=== PATIENT | male | born 1950 | race Caucasian/White ===

== ENCOUNTER → 2016-07-21 | Outpatient (CLI) | payer MEDICARE, OTHER ==
[2016-07-21 12:00] LABS: Anion Gap 9 mmol/L; Blood Urea Nitrogen 23 mg/dL (9-20); CH 30.3; Carbon Dioxide 28 mmol/L (22-30); Chloride 106 mmol/L (98-107); HCT 41.3 % (39.0-53.0); HDW 2.58; HGB 12.5 gm/dL (13.0-17.5); Hypochromasia Slight; MCH 29.9 pg (25.0-35.0); MCHC 30.4 g/dL (31.0-37.0); MCV 98.3 fL (80.0-100.0); Macrocytosis Slight; Mean Platelet Volume 6.8; Non-African American GFR(MDRD) >60 (>60 ml/min/1.73 sqM); RDW 15.6 % (11.5-15.5); Sodium 143 mmol/L (137-145); WBC 7.2 k/uL (3.8-10.6)
== END | disposition home or self-care (01) ==
LOC: LABPAT 11:25
PROVIDERS: ATTEND Internal Medicine Cardiovascular Disease
DX: Z01.812 Encounter for preprocedural laboratory examination (principal); I25.10 Atherosclerotic heart disease of native coronary artery without angina pectoris
CPT/HCPCS: 80051; 82565; 84520; 85027

== ENCOUNTER 2016-07-26 06:40 | Day surgery (SDC) | payer MEDICARE, OTHER ==
[2016-07-21 15:31] VITALS: BMI 45.6
[~2016-07-26 06:40] MED LIST: ALPRAZolam 0.25 MG TAB PO PRN; ALPRAZolam 0.5 MG TAB PO PRN; ASPIRIN 325 MG TAB PO STA; ATORVASTATIN 80 MG TAB PO STA; NITROGLYCERIN SL TABS 0.4 MG TAB SUBLINGUAL PRN; SODIUM CHLORIDE 0.9% 1,000 ML in EMPTY BAG 1 BAG IV ONE
[2016-07-26 07:21] LABS: Glucose,Whole Blood 86 mg/dL (75-99)
[2016-07-26] MEDS ORDERED: MIDAZOLAM 2 MG/2 ML VIAL ONE (07:26)
[2016-07-26] MEDS ORDERED: diphenhydrAMINE 50 MG/ML 1 ML VIAL ONE (07:26)
[2016-07-26] MEDS ORDERED: LIDOCAINE 2% INJ 20 MG/ML (20 ML MDV) ONE ×2 (07:26→07:39)
[2016-07-26] MEDS ORDERED: LIDOCAINE 2% INJ 20 MG/ML SQ ONE ×2 (07:34→07:41)
[2016-07-26 07:36] LABS: INR 1.3 (<1.1); Prothrombin Time 12.9 sec (9.0-12.0)
[2016-07-26] MEDS ORDERED: fentaNYL (PF) 50 MCG/ML 2 ML AMP ONE (07:36)
[2016-07-26] MEDS ORDERED: fentaNYL (PF) 50 MCG/ML 2 ML AMP IV ONE (07:40)
[2016-07-26] MEDS ORDERED: MIDAZOLAM 2 MG/2 ML VIAL IV ONE (07:40)
[2016-07-26] MEDS ORDERED: IOHEXOL 350 MG/ML 100 ML BOTTLE INJ ONE (08:00)
[2016-07-26] MEDS ORDERED: RX INFO: IV CONTRAST WAS GIVEN 1 EACH MISC MISCELLANE PRN (08:08)
[2016-07-26] MEDS ORDERED: SODIUM CHLORIDE 0.9% 1,000 ML IV SCH (08:15)
--- NOTE | 2016-07-26 08:43 | CC ---
DATE OF SERVICE: 07/25/2016 INDICATION: Aortic stenosis/regurgitation to rule out underlying coronary artery disease. PROCEDURE NOTE: After obtaining informed consent, left heart catheterization, coronary angiogram and aortogram are performed via the left femoral artery using standard Sebastien catheters. Patient tolerated the procedure well without any obvious immediate complications. FINDINGS: We initially attempted vascular access on the right side but we were unsuccessful. There is a small hematoma, which was stable at the end of the procedure. Femoral angiogram was obtained and Angio-Seal deployed on the left side. FINDINGS: HEMODYNAMICS: Left ventricular end-diastolic pressure is 130/70 mm. AORTOGRAM: Aortogram was performed in the left lateral position shows a mildly dilated ascending aorta with moderate aortic regurgitation. ANGIOGRAPHIC DATA: LEFT MAIN CORONARY ARTERY: Left main coronary artery is a large vessel and is free of stenosis. It divides into left anterior descending coronary artery and circumflex coronary artery. LEFT ANTERIOR DESCENDING CORONARY ARTERY: LAD and its branches, circumflex coronary artery and its branches are free of significant stenosis. RIGHT CORONARY ARTERY: Right coronary artery is a large dominant vessel and is free of significant stenosis. CONCLUSIONS: 1. No significant obstructive coronary artery disease. 2. Mixed aortic valve stenosis with moderate aortic regurgitation and stenosis. 3. Nonischemic cardiomyopathy. PLAN: Patient will undergo aortic valve replacement. He has chronic A. fib and was on Lovenox as a bridge and we will decide whether to send him home on Lovenox or Coumadin depending upon when his surgery is going to be done.
[2016-07-26] MEDS ORDERED: MD COMMUNICATION TO PHARMACY 1 EACH MISC PO ONE (09:16)
[2016-07-26 10:23] LABS: Basophils # (A) 0.1 k/uL (0-0.2); Basophils % (A) 1 %; CH 31.1; CHCM 31.3; Eosinophils # (A) 0.2 k/uL (0-0.7); Eosinophils % (A) 2 %; HCT 41.5 % (39.0-53.0); HDW 2.52; HGB 12.8 gm/dL (13.0-17.5); Hypochromasia Slight; Luc # (Auto) 0.11; Luc % (Auto) 2; Lymphocytes # (A) 1.1 k/uL (1.0-4.8); Lymphocytes % (A) 17 %; MCH 30.8 pg (25.0-35.0); MCHC 30.8 g/dL (31.0-37.0); MCV 100.2 fL (80.0-100.0); Macrocytosis Slight; Mean Platelet Volume 7.9; Monocytes # (A) 0.6 k/uL (0-1.0); Monocytes % (A) 8 %; Neutrophils # (A) 4.6 k/uL (1.3-7.7); Neutrophils % (A) 70 %; RBC 4.14 m/uL (4.30-5.90); RDW 15.4 % (11.5-15.5); WBC 6.5 k/uL (3.8-10.6)
[2016-07-26 10:31] LABS: INR 1.3 (<1.1); Partial Thromboplastin Time 29.1 sec (22.0-30.0); Prothrombin Time 13.1 sec (9.0-12.0)
[2016-07-26 10:48] LABS: ALT 41 U/L (21-72); AST 33 U/L (17-59); Alkaline Phosphatase 80 U/L (38-126); Anion Gap 11 mmol/L; Blood Urea Nitrogen 24 mg/dL (9-20); Calcium 8.8 mg/dL (8.4-10.2); Carbon Dioxide 29 mmol/L (22-30); Chloride 104 mmol/L (98-107); Cholesterol 100 mg/dL (<200); Glucose 136 mg/dL (74-99); HDL Cholesterol 46 mg/dL (40-60); Magnesium 1.9 mg/dL (1.6-2.3); Non-African American GFR(MDRD) >60 (>60 ml/min/1.73 sqM); Potassium 4.2 mmol/L (3.5-5.1); Sodium 144 mmol/L (137-145); Total Protein 7.1 g/dL (6.3-8.2); Triglycerides 62 mg/dL (<150)
[2016-07-26 10:57] VITALS: TEMP 98.2
[2016-07-26] MEDS ORDERED: ACETAMINOPHEN TAB 325 MG TAB PO PRN (11:10)
[2016-07-26 11:11] LABS: Hemoglobin A1C 5.6 % (4.2-6.1)
[2016-07-26] MEDS ORDERED: ACETAMINOPHEN TAB 325 MG TAB ONE (11:11)
[2016-07-26] MEDS ORDERED: ACETAMINOPHEN TAB 325 MG TAB PO ONE (11:12)
[2016-07-26 11:19] LABS: Hepatitis B Surface Ag Index 0.08
[2016-07-26 11:36] LABS: Hepatitis C Virus IgG Index 0.06
[2016-07-26 11:48] LABS: Hepatitis C Virus IgG Ab Negative (Negative)
[2016-07-26 12:33] LABS: Hepatitis B Core IgM Index 0.04
[2016-07-26 12:50] VITALS: RESP 16
--- NOTE | 2016-07-26 13:47 | US ---
EXAMINATION TYPE: US carotid duplex BILAT DATE OF EXAM: 07/26/2016 11:53 AM COMPARISON: US on PACS CLINICAL HISTORY: pre-op open heart; recent [place] EXAM MEASUREMENTS: RIGHT: Peak Systolic Velocity (PSV) cm/sec ----- Right CCA: 34.8 ----- Right ICA: 53.9 ----- Right ECA: 72.5 ICA/CCA ratio: 1.5 RIGHT: End Diastole cm/sec ----- Right CCA: 11.3 ----- Right ICA: 17.3 ----- Right ECA: 0.0 LEFT: Peak Systolic Velocity (PSV) cm/sec ----- Left CCA: 40.0 ----- Left ICA: 56.0 ----- Left ECA: 38.4 ICA/CCA ratio: 1.4 LEFT: End Diastole cm/sec ----- Left CCA: 7.9 ----- Left ICA: 13.5 ----- Left ECA: 0.0 VERTEBRALS (direction of flow): Right Vertebral: faint antegrade flow Left Vertebral: Antegrade and dominant vertebral artery TECHNOLOGIST IMPRESSION: Mild to moderate intimal wall changes at bilateral carotid bifurcation, but PSV is wnl. Grayscale, color Doppler, spectral Doppler imaging performed of the carotid arteries IMPRESSION: No hemodynamic significant stenosis of the proximal internal carotid arteries bilaterall y by Doppler criteria, and indirect measurement of carotid stenosis
[2016-07-26 14:20] LABS: Appearance,Urine Clear (Clear); Bilirubin,Urine Negative (Negative); Glucose,Urine (UA) Negative (Negative); Ketones,Urine Negative (Negative); Leukocyte Esterase,Urine Negative (Negative); Nitrite,Urine Negative (Negative); PH, Urine 6.5 (5.0-8.0); Particle Count 1511; Protein,Urine 1+ (Negative); RBC,Urine 2 /hpf (0-5); Squamous Epithelial Cell,Urine 4 /hpf (0-4); UA Billing (MACRO vs. MICRO) MICRO; WBC,Urine <1 /hpf (0-5)
[2016-07-26 14:24] LABS: Specific Gravity,Urine >1.050 (1.001-1.035)
--- NOTE | 2016-07-26 15:27 | XR ---
EXAMINATION TYPE: XR chest 2V DATE OF EXAM: 07/26/2016 3:06 PM COMPARISON: Prior chest x-ray 21 September 2015 HISTORY: Preop cardiac surgery TECHNIQUE: Frontal and lateral views of the chest are obtained. FINDINGS: The heart remains enlarged. Interstitium and central vascularity are prominent. No pneumot horax or pleural effusion. Prominent lung volumes suggests underlying COPD. IMPRESSION: There may be a component of pulmonary venous hypertension and interstitial edema. Findin gs may be chronic and compensated.
[2016-07-26 15:36] VITALS: BP 113/60; PULSE 55
--- NOTE | 2016-07-27 08:57 | P.PN ---
Progress Note - Text 5 meter walk test: #1 4.68, #2 5.03, #3 5.24
--- NOTE | 2016-08-03 12:11 | P.VSCSTY ---
Greater Saphenous Vein Mapping This is bilateral lower extremity greater saphenous vein mapping. Date of service 07/26/2016 Vein quality and ultrasound appearance : branching and tortuosity as well in both lower legs with some varicosities. Vein size groin right [ ] groin left [ ] High thigh right 6.2 x 5.1 high thigh left 5.3 x 5.5 Mid thigh right 4.0 x 3.8 mid thigh left 5.0 x 4.4 Above-knee right 3.4 x 2.7 above- knee left 4.0 x 3.3 Below knee right 3.9 x 3.6 below-knee left 5.1 x 4.8 Mid calf right 2.8 x 2.4 mid calf left to 0.9 x 1.9 Ankle right 3.4 x 2.7 ankle left 3.4 x 2.9 Impression usual bilateral greater saphenous veins. Possible issues with branching and varicosities in both lower legs..
== END 2016-07-26 15:36 | disposition home or self-care (01) ==
LOC: CATHCVL 06:40
PROVIDERS: ATTEND Internal Medicine Cardiovascular Disease
DX: I35.2 Nonrheumatic aortic (valve) stenosis with insufficiency (principal); I48.2 Chronic atrial fibrillation; I50.22 Chronic systolic (congestive) heart failure; I42.9 Cardiomyopathy, unspecified; E11.9 Type 2 diabetes mellitus without complications; I10 Essential (primary) hypertension; Z79.01 Long term (current) use of anticoagulants; Z79.899 Other long term (current) drug therapy; Z79.84 Long term (current) use of oral hypoglycemic drugs; Z87.891 Personal history of nicotine dependence; Z82.49 Family history of ischemic heart disease and other diseases of the circulatory system
CPT/HCPCS: 94150; 93458; 80061; 80053; 80074; 84443; 83036; 83735; 84484; 85025; 85610; 85730; 81001; 87070; 87086; 71020; 93970; 93880; C1760; C1894; C1769; J2001; J2250; Q9967; J3010; 83880; 86850; 86900; 86901; 86920

== ENCOUNTER → 2016-07-28 | Outpatient (CLI) | payer MEDICARE, OTHER ==
--- NOTE | 2016-07-29 10:43 | ECHOF ---
Referral Reason:Z01.818 Q22.3 MEASUREMENTS -------- HEIGHT: 172.7 cm WEIGHT: 136.1 kg BP: 123/62 RVIDd: 4.2 cm (< 3.3) IVSd: 1.5 cm (0.6 - 1.1) LVIDd: 5.6 cm (3.9 - 5.3) LVPWd: 1.4 cm (0.6 - 1.1) IVSs: 1.6 cm LVIDs: 4.4 cm LVPWs: 1.9 cm LA Diam: 4.1 cm (2.7 - 3.8) LAESV Index (A-L): 45.66 ml/m Ao Diam: 3.8 cm (2.0 - 3.7) AV Cusp: 2.0 cm (1.5 - 2.6) MV EXCURSION: 10.542 mm (> 18.000) MV EF SLOPE: 34 mm/s (70 - 150) EPSS: 1.8 cm AV maxP.89 mmHg AV meanP.10 mmHg AR PHT: 989 ms RAP: 5.00 mmHg RVSP: 32.48 mmHg FINDINGS -------- Atrial fibrillation. This was a technically difficult study with suboptimal views. The left ventricular size is normal. There is moderate concentric left ventricular hypertrophy. Overall left ventricular systolic function is mild-moderately impaired with, an EF between 40 - 45 %. The right ventricle is severely enlarged. LA is severely dilated >40 ml/m2 The right atrium is mildly enlarged. 1.5mg of Definity was utilized for enhancement of images Aortic valve is trileaflet and is moderately thickened. There is moderate aortic regurgitation. There is goicuqvf-vm-ynwhfw aortic stenosis present. The mitral valve leaflets are mildly thickened. Mild mitral annular calcification present. Mild mitral regurgitation is present. Mild tricuspid regurgitation present. Right ventricular systolic pressure is normal at < 35 mmHg. Moderate pulmonic regurgitation. The aortic root is dilated measuring 3.8cm. IVC Not well visulized. There is no pericardial effusion. CONCLUSIONS -------- 1. Atrial fibrillation. 2. Aortic valve is trileaflet and is moderately thickened. 3. There is moderate aortic regurgitation. 4. There is zdudcjle-[id number] aortic stenosis present. 5. The mitral valve leaflets are mildly thickened. 6. Mild mitral annular calcification present. 7. Mild mitral regurgitation is present. 8. Mild tricuspid regurgitation present. 9. Right ventricular systolic pressure is normal at < 35 mmHg. 10. Moderate pulmonic regurgitation. 11. The aortic root is dilated measuring 3.8cm. 12. This was a technically difficult study with suboptimal views. 13. IVC Not well visulized. 14. There is no pericardial effusion. 15. The left ventricular size is normal. 16. There is moderate concentric left ventricular hypertrophy. 17. Overall left ventricular systolic function is mild-moderately impaired with, an EF between 40 - 45 %. 18. The right ventricle is severely enlarged. 19. LA is severely dilated >40 ml/m2 20. The right atrium is mildly enlarged. 21. 1.5mg of Definity was utilized for enhancement of images DYE REEL OPERATOR: Bernie Rincon RDCS
== END | disposition home or self-care (01) ==
LOC: RADECHMAIN 13:48
PROVIDERS: ATTEND Surgery
DX: Z01.818 Encounter for other preprocedural examination (principal); I48.91 Unspecified atrial fibrillation; I35.1 Nonrheumatic aortic (valve) insufficiency; I35.0 Nonrheumatic aortic (valve) stenosis; I34.0 Nonrheumatic mitral (valve) insufficiency; I07.1 Rheumatic tricuspid insufficiency; Q22.3 Other congenital malformations of pulmonary valve
CPT/HCPCS: C8929; Q9957; 93306

== ENCOUNTER 2016-08-01 05:43 | Inpatient (IN) | payer MEDICARE, OTHER ==
[2016-07-29 11:58] VITALS: BMI 45.6
[~2016-08-01 05:43] MED LIST changes: +ALBUMIN HUMAN 25% 50 ML IV ONE; +ALBUMIN HUMAN 5% 500 ML IVPB ONE; -ALPRAZolam 0.25 MG TAB PO PRN; -ALPRAZolam 0.5 MG TAB PO PRN; +AMINOCAPROIC ACID 250 MG/ML 20 ML VIAL IV ONE; +AMINOCAPROIC ACID 5,000 MG in DEXTROSE 5% IN WATER 50 ML IV ONE; +ASPIRIN 325 MG TAB PO ONE; -ASPIRIN 325 MG TAB PO STA; +ATORVASTATIN 10 MG TAB PO ONE; -ATORVASTATIN 80 MG TAB PO STA; +CALCIUM CHLORIDE 100 MG/ML 10 ML SYRINGE IV ONE; +CHLORHEXIDINE GLUCONATE 15 ML CUP MUCOUS MEM ONE; +DEXTROSE 5% IN WATER 1,000 ML with POTASSIUM CHLORIDE 110 MEQ, MAGNESIUM SULFATE 16 MEQ... IV ONE; +DEXTROSE 5% IN WATER 1,000 ML with POTASSIUM CHLORIDE 25 MEQ, SODIUM CHLORIDE 4MEQ/ML V... IV ONE; +DILTIAZEM 125 MG in SODIUM CHLORIDE 0.9% 100 ML IV ONE; +HEPARIN SODIUM 1,000 UNIT/ML VIAL IV ONE; +HEPARIN SODIUM,PORCINE 5,000 UNIT in SODIUM CHLORIDE 0.9% 500 ML IV ONE; +INSULIN REGULAR 100 UNIT in SODIUM CHLORIDE 0.9% 100 ML IV ONE; +LACTATED RINGERS 1,000 ML IV ONE; +MAGNESIUM SULFATE MG 500 MG/ML VIAL IV ONE; +MANNITOL 25% 12.5 GM/50 ML VIAL IV ONE; +METOPROLOL TARTRATE 12.5 MG TAB PO ONE; +MUPIROCIN 2% OINT 22 GM TUBE NASAL ONE; -NITROGLYCERIN SL TABS 0.4 MG TAB SUBLINGUAL PRN; +NITROGLYCERIN-D5W PMX 25 MG/250 ML BTL IV ONE; +NITROGLYCERIN-D5W PMX 50 MG in DEXTROSE/WATER 1 250ML.BAG IV ONE; +PHENYLEPHRINE 40 MG in SODIUM CHLORIDE 0.9% 250 ML IV ONE; +PHENYLEPHRINE-0.9% NACL SYG 1 MG/10 ML SYRINGE IV ONE; +PROPOFOL 50 ML IV ONE; +PROTAMINE SULFATE 10 MG/ML 25 ML VIAL IV ONE; +PROTAMINE SULFATE 250 MG in EMPTY BAG 1 BAG IV ONE; +SODIUM BICARB 8.4% 50 ML SYR (1 MEQ/ML) IV ONE; +SODIUM CHLORIDE 0.9% 1,000 ML IV ONE; -SODIUM CHLORIDE 0.9% 1,000 ML in EMPTY BAG 1 BAG IV ONE; +VANCOMYCIN 2,000 MG in SODIUM CHLORIDE 0.9% 500 ML IVPB ONE; +ceFAZolin 2,000 MG in SODIUM CHLORIDE 0.9% 30 ML IVPB ONE; +ceFAZolin 3 GM in SODIUM CHLORIDE 0.9% 30 ML IVPB ONE
[2016-08-01 06:25] LABS: Glucose,Whole Blood 100 mg/dL (75-99)
[2016-08-01] MEDS ORDERED: ELECTROLYTE-R (PH 7.4) 1,000 ML IV.SOLN IV ONE (08:05)
[2016-08-01] MEDS ORDERED: GLYCOPYRROLATE 0.2 MG/ML 2 ML VIAL ONE (08:05)
[2016-08-01] MEDS ORDERED: HEPARIN SODIUM,PORCINE 10,000 UNIT/ML 1 ML VIAL ONE (08:05)
[2016-08-01] MEDS ORDERED: PROTAMINE SULFATE 10 MG/ML 25 ML VIAL IV ONE (08:05)
[2016-08-01] MEDS ORDERED: SUCCINYLCHOLINE CHLORIDE VIAL 200 MG/10 ML VIAL IV ONE (08:05)
[2016-08-01] MEDS ORDERED: fentaNYL (PF) 50 MCG/ML 2 ML AMP ONE (08:05)
[2016-08-01] MEDS ORDERED: MIDAZOLAM 2 MG/2 ML VIAL ONE (08:05)
[2016-08-01] MEDS ORDERED: ePHEDrine 50 MG/ML 1 ML AMP ONE (08:05)
[2016-08-01] MEDS ORDERED: VECURONIUM 10 MG VIAL IV ONE (08:05)
[2016-08-01] MEDS ORDERED: PROPOFOL 10 MG/ML 20 ML VIAL IV ONE (08:05)
[2016-08-01] MEDS ORDERED: SODIUM CHLORIDE 0.9% IRRIG 1,000 ML BTL IRRIGATION ONE (08:05)
[2016-08-01 08:50] LABS: Glucose,Whole Blood 103 mg/dL (75-99)
[2016-08-01] MEDS: ceFAZolin 1,000 MG in SODIUM CHLORIDE 0.9% IRRIGATIO 1,000 ML IRRIGATION ONE ×2 (09:17→13:00)
[2016-08-01 10:02] LABS: Glucose,Whole Blood 109 mg/dL (75-99)
[2016-08-01 10:30] LABS: Glucose,Whole Blood 158 mg/dL (75-99)
[2016-08-01 11:08] LABS: Glucose,Whole Blood 194 mg/dL (75-99)
[2016-08-01 11:34] LABS: Glucose,Whole Blood 190 mg/dL (75-99)
[2016-08-01 12:04] LABS: Glucose,Whole Blood 162 mg/dL (75-99)
[2016-08-01] MEDS: CLEVIDIPINE BUTYRATE 25 MG in EMPTY BAG 1 BAG IV ONE ×2 (13:08→20:00)
[2016-08-01] MEDS: NOREPINEPHRINE 4 MG in SODIUM CHLORIDE 0.9% 250 ML IV ONE ×2 (13:12→14:15)
[2016-08-01] MEDS: LACTATED RINGERS 1,000 ML IV SCH ×2 (13:13→15:06)
[2016-08-01] MEDS ORDERED: Magnesium Replacement Protocol 1 EACH MISC MISCELLANE PRN (13:15)
[2016-08-01] MEDS ORDERED: CALCIUM GLUCONATE 2,000 MG in SODIUM CHLORIDE 0.9% 100 ML IVPB ONE (13:15)
[2016-08-01] MEDS ORDERED: ONDANSETRON 4 MG/2 ML VIAL IVP PRN (13:15)
[2016-08-01] MEDS ORDERED: NOREPINEPHRINE 4 MG in SODIUM CHLORIDE 0.9% 250 ML IV SCH (13:15)
[2016-08-01] MEDS ORDERED: PROPOFOL 500 MG in EMPTY BAG 1 BAG IV SCH (13:15)
[2016-08-01] MEDS ORDERED: Potassium Replacement Protocol 1 EACH MISC MISCELLANE PRN (13:15)
[2016-08-01] MEDS ORDERED: BENZOCAINE/MENTHOL LOZENG 1 EACH LOZENGE MUCOUS MEM PRN (13:15)
[2016-08-01] MEDS ORDERED: Phosphorus Replacement Protoco 1 EACH MISC MISCELLANE PRN (13:15)
[2016-08-01] MEDS ORDERED: ALBUMIN HUMAN 5% 250 ML in EMPTY BAG 1 BAG IVPB PRN (13:15)
[2016-08-01] MEDS ORDERED: MILRINONE-D5W PMX 20 MG in DEXTROSE/WATER 1 100ML.BAG IV SCH (13:15)
[2016-08-01] MEDS ORDERED: METOCLOPRAMIDE 5 MG/ML 2 ML VIAL IVP PRN (13:15)
[2016-08-01] MEDS ORDERED: INSULIN REGULAR 100 UNIT in SODIUM CHLORIDE 0.9% 100 ML IV SCH (13:30)
[2016-08-01 14:19] LABS: ABG PCO2 45 mmHg (35-45); ABG PH 7.35 (7.35-7.45); ABG PO2 272 mmHg (83-108)
[2016-08-01 14:20] LABS: ABG Base Excess -0.5 mmol/L; ABG HCO3 24 mmol/L (21-25); ABG TCO2 26 mmol/L (19-24)
[2016-08-01 14:32] LABS: Glucose,Whole Blood 140 mg/dL (75-99)
[2016-08-01 14:32] LABS: Glucose,Whole Blood 124 mg/dL (75-99)
[2016-08-01 14:36] LABS: Ionized Calcium 4.8 mg/dL (4.5-5.3)
[2016-08-01 14:40] LABS: INR 1.4 (<1.1); Partial Thromboplastin Time 26.6 sec (22.0-30.0); Prothrombin Time 14.1 sec (9.0-12.0)
[2016-08-01 14:48] LABS: ALT 47 U/L (21-72); AST 36 U/L (17-59); Alkaline Phosphatase 52 U/L (38-126); Anion Gap 8 mmol/L; Blood Urea Nitrogen 21 mg/dL (9-20); Calcium 7.9 mg/dL (8.4-10.2); Carbon Dioxide 26 mmol/L (22-30); Chloride 109 mmol/L (98-107); Glucose 137 mg/dL (74-99); Magnesium 2.1 mg/dL (1.6-2.3); Non-African American GFR(MDRD) >60 (>60 ml/min/1.73 sqM); Sodium 143 mmol/L (137-145); Total Bilirubin 1.2 mg/dL (0.2-1.3); Total Protein 5.5 g/dL (6.3-8.2)
[2016-08-01 14:56] LABS: Basophils # (A) 0.1 k/uL (0-0.2); Basophils % (A) 0 %; CHCM 31.4; Eosinophils # (A) 0.1 k/uL (0-0.7); Eosinophils % (A) 1 %; HCT 30.6 % (39.0-53.0); Hypochromasia Slight; Luc # (Auto) 0.09; Luc % (Auto) 1; Lymphocytes # (A) 0.7 k/uL (1.0-4.8); Lymphocytes % (A) 5 %; MCH 30.9 pg (25.0-35.0); MCV 99.5 fL (80.0-100.0); Macrocytosis Slight; Monocytes # (A) 0.9 k/uL (0-1.0); Monocytes % (A) 7 %; Neutrophils # (A) 11.4 k/uL (1.3-7.7); Neutrophils % (A) 86 %; RBC 3.07 m/uL (4.30-5.90); WBC 13.3 k/uL (3.8-10.6)
--- NOTE | 2016-08-01 14:59 | XR ---
EXAMINATION TYPE: XR chest 1V portable DATE OF EXAM: 08/01/2016 2:27 PM COMPARISON: 07/26/2016 HISTORY: Postop cardiac surgery TECHNIQUE: Single frontal view of the chest is obtained. FINDINGS: ET tube 2.5 cm above maría. NG tube appears in good position. Chest tube and mediastinal drain noted. No sizable pneumothorax. Garrett-Jonah catheter seen with the tip overlying the proximal pulmonary outflow tract. Mild central venous congestion not excluded. The heart is enlarged. IMPRESSION: 1. Postoperative changes. Correlate for mild central venous congestion.
[2016-08-01 15:06] LABS: Glucose,Whole Blood 138 mg/dL (75-99)
[2016-08-01] MEDS: CLEVIDIPINE BUTYRATE 25 MG in EMPTY BAG 1 BAG IV SCH ×2 (15:06→23:50)
[2016-08-01] MEDS: ceFAZolin 3 GM in SODIUM CHLORIDE 0.9% 100 ML IVPB SCH (15:06)
[2016-08-01] MEDS: IPRATROPIUM-ALBUTEROL 3 ML NEB INHALATION SCH ×2 (15:18→18:49)
[2016-08-01 15:21] LABS: HGB 9.5 gm/dL (13.0-17.5)
[2016-08-01 16:12] LABS: Glucose,Whole Blood 161 mg/dL (75-99)
[2016-08-01 16:58] LABS: Glucose,Whole Blood 151 mg/dL (75-99)
[2016-08-01 17:04] LABS: Basophils % (A) 0 %; CH 30.6; CHCM 31.5; Eosinophils % (A) 0 %; HCT 30.2 % (39.0-53.0); HGB 9.7 gm/dL (13.0-17.5); Hypochromasia Slight; Luc % (Auto) 1; Lymphocytes # (A) 0.4 k/uL (1.0-4.8); Lymphocytes % (A) 4 %; MCH 31.4 pg (25.0-35.0); MCHC 32.1 g/dL (31.0-37.0); MCV 97.8 fL (80.0-100.0); Macrocytosis Slight; Monocytes # (A) 0.7 k/uL (0-1.0); Monocytes % (A) 6 %; Neutrophils % (A) 89 %; RBC 3.09 m/uL (4.30-5.90); RDW 15.7 % (11.5-15.5); WBC 11.2 k/uL (3.8-10.6); WBC (Perox) 11.34
[2016-08-01 18:10] LABS: Glucose,Whole Blood 153 mg/dL (75-99)
[2016-08-01] MEDS: ACETAMINOPHEN IV (For NPO) 1,000 MG in EMPTY BAG 1 BAG IVPB SCH ×2 (18:13→23:26)
[2016-08-01 19:13] LABS: Glucose,Whole Blood 143 mg/dL (75-99)
[2016-08-01 20:07] LABS: Glucose,Whole Blood 144 mg/dL (75-99)
[2016-08-01 20:08] LABS: ABG Base Excess -0.8 mmol/L; ABG HCO3 24 mmol/L (21-25); ABG PCO2 45 mmHg (35-45); ABG PH 7.35 (7.35-7.45); ABG PO2 71 mmHg (83-108); ABG TCO2 25 mmol/L (19-24)
--- NOTE | 2016-08-01 20:13 | P.CNPUL ---
History of Present Illness Consult date: 08/01/16 Requesting physician: Frank Ram Reason for consult: other (Status post CABG) Chief complaint: status post CABG History of present illness: this is a 65-year-old white male with history of severe aortic valve disease, patient had aortic regurgitation and aortic stenosis, and he was being followed by Dr. Sanders for number of years for his aortic valve disease. On his most recent transesophageal echocardiogram, patient was noted to have worsening stenosis worsening regurgitation. Hence he was referred to cardiothoracic surgery for aortic valve replacement. Patient has been experiencing worsening dyspnea on exertion which was felt to be related mostly to his underlying aortic valve disease. Today the patient underwent aortic valve replacement, postoperatively he was on mechanical ventilation, admitted to the ICU, and I saw him on consultation. His ventilator settings were reviewed. Chest x-ray was also reviewed. Vent settings were adjusted, and we plan to follow the protocol for bleeding possibly extubation in the next few hours. Patient seems to be hemodynamically stable. Abdomen chest x-ray showed mild congestive changes. Review of Systems ROS unobtainable: due to endotracheal tube Past Medical History Past Medical History: COPD, Diabetes Mellitus, Hypertension, Osteoarthritis (OA) , Sleep Apnea/CPAP/BIPAP Additional Past Medical History / Comment(s): irregular heartbeat, varicose veins, 2 herniated disk/degenerative disks, leaky heart valve, "blood clots in the heart", uses CPAP History of Any Multi-Drug Resistant Organisms: None Reported Past Surgical History: Appendectomy, Bowel Resection, Heart Catheterization, Orthopedic Surgery, Tonsillectomy Additional Past Surgical History / Comment(s): left shoulder surgery, surgery for sleep apnea, deana cataracts Past Anesthesia/Blood Transfusion Reactions: No Reported Reaction Past Psychological History: Depression Smoking Status: Former smoker Past Alcohol Use History: Occasional Additional Past Alcohol Use History / Comment(s): quit smoking 2014. smoked for 30 yrs, < 1 PPD Past Drug Use History: None Reported - Past Family History Mother Family Medical History: No Reported History Medications and Allergies Home Medications Medication Instructions Recorded Confirmed Type ALPRAZolam [Xanax] 0.25 mg PO BID PRN 10/15/14 08/01/16 History Doxazosin [Cardura] 1 mg PO QAM 10/15/14 08/01/16 History HYDROcodone/APAP 10-325MG [[place] 1 tab PO TID PRN 10/15/14 08/01/16 History 10] Lisinopril [Zestril] 2.5 mg PO QAM 10/15/14 08/01/16 History Warfarin [Coumadin] 10 mg PO SUMOTUTHFRSA 10/15/14 07/29/16 History metFORMIN HCL [Glucophage] 500 mg PO QAM 10/15/14 08/01/16 History Atenolol [Tenormin] 25 mg PO QAM 01/21/15 08/01/16 History Furosemide [Lasix] 40 mg PO BID 01/21/15 08/01/16 History buPROPion HCL [Wellbutrin SR] 150 mg PO QAM 01/21/15 08/01/16 History traMADol HCl [Ultram] 50 mg PO BID PRN 01/21/15 08/01/16 History Aspirin 325 mg PO DAILY 04/01/15 08/01/16 History Ergocalciferol (Vitamin D2) 50,000 unit PO SA 04/01/15 08/01/16 History [Drisdol] Albuterol Inhaler [Ventolin Hfa 2 puff INHALATION RT-Q4H PRN 07/13/15 08/01/16 History Inhaler] Baclofen 10 mg PO TID 07/13/15 08/01/16 History Potassium Chloride [Klor-Con 10] 10 meq PO QAM 07/13/15 08/01/16 History Docusate [Colace] 100 mg PO DAILY PRN 11/05/15 08/01/16 History Ipratropium-Albuterol Nebulize 3 ml INHALATION RT-QID PRN 11/05/15 08/01/16 History [Duoneb 0.5 mg-3 mg/3 ml Soln] Multivitamins, Thera [Multivitamin] 1 tab PO DAILY 11/05/15 08/01/16 History Warfarin Sodium 12 mg PO WE 11/05/15 07/29/16 History hydrALAZINE HCL [Apresoline] 25 mg PO TID 11/05/15 08/01/16 History Cyanocobalamin [Vitamin B-12] 1,000 mcg PO DAILY 07/21/16 08/01/16 History Vitamin E (Dl,Tocopheryl Acet) 400 unit PO DAILY 07/21/16 08/01/16 History [Vitamin E] Enoxaparin [Lovenox] 100 mg SQ Q12H 07/29/16 08/01/16 History FLUoxetine HCL [Sarafem] 60 mg PO DAILY 08/01/16 08/01/16 History Allergies Allergy/AdvReac Type Severity Reaction Status Date / Time No Known Allergies Allergy Verified 07/29/16 11:43 Physical Exam Vitals: Vital Signs Temp Pulse Pulse Resp BP BP BP 08/01/16 19:31 91 08/01/16 18:54 79 08/01/16 17:00 80 14 08/01/16 16:30 80 140/67 08/01/16 16:20 80 140/67 08/01/16 16:10 79 140/67 08/01/16 16:00 80 140/67 08/01/16 15:53 75 08/01/16 15:50 80 140/67 08/01/16 15:40 79 140/67 08/01/16 15:30 71 84/49 08/01/16 15:22 76 08/01/16 15:20 79 84/49 08/01/16 15:10 80 84/49 08/01/16 15:00 79 84/49 08/01/16 14:50 80 84/49 08/01/16 14:40 79 84/49 08/01/16 14:30 80 107/61 08/01/16 14:20 80 107/61 08/01/16 14:10 80 107/61 08/01/16 14:00 80 08/01/16 13:50 79 08/01/16 06:08 97.9 F 68 16 115/73 145/73 08/01/16 06:07 97.9 F 68 16 145/73 Pulse Ox 08/01/16 19:31 08/01/16 18:54 08/01/16 17:00 98 08/01/16 16:30 100 08/01/16 16:20 100 08/01/16 16:10 100 08/01/16 16:00 100 08/01/16 15:53 08/01/16 15:50 100 08/01/16 15:40 100 08/01/16 15:30 100 08/01/16 15:22 08/01/16 15:20 100 08/01/16 15:10 100 08/01/16 15:00 100 08/01/16 14:50 100 08/01/16 14:40 100 08/01/16 14:30 100 08/01/16 14:20 100 08/01/16 14:10 100 08/01/16 14:00 100 08/01/16 13:50 95 08/01/16 06:08 93 L 08/01/16 06:07 93 L Intake and Output 08/01/16 08/01/16 08/01/16 06:59 14:59 22:59 Intake Total 712 1023 Output Total 3895 730 Balance -3183 293 Intake: IV 161 372 CO/CI 120 300 Pressure Bags 9 72 Intake, IV Titration 551 651 Amount Albumin Human 5% 250 ml 500 In Empty Bag 1 bag @ 250 mls/hr IVPB Q1HR PRN Rx#: [id number] Calcium Gluconate 2,000 100 mg In Sodium Chloride 0.9 % 100 ml @ 100 mls/hr IVPB ONCE ONE Rx#: [id number] Lactated Ringers 1,000 ml 51 451 @ 50 mls/hr IV .Q20H [facility] Rx#:[id number] ceFAZolin 3 gm In Sodium 100 Chloride 0.9% 100 ml @ 100 mls/hr IVPB Q8HR [facility] Rx#:[id number] Output: Chest Tube Drainage 170 190 Chest Tube Left Pleural/ 50 30 Mediastinal Chest Tube Mediastinal 50 150 Chest Tube Right Lateral 70 10 Chest Urine 925 540 Estimated Blood Loss 2800 Other: Voiding Method Indwelling Catheter # Bowel Movements 0 Weight 136.985 kg ABP, PAP, CO, CI - Last 8 Hours Arterial Blood Pressure 102/52 Arterial Blood Pressure 139/71 Arterial Blood Pressure 148/73 Arterial Blood Pressure 129/68 Arterial Blood Pressure 153/75 Arterial Blood Pressure 129/68 Arterial Blood Pressure 136/71 Arterial Blood Pressure 120/61 Arterial Blood Pressure 113/60 Arterial Blood Pressure 110/57 Arterial Blood Pressure 106/56 Arterial Blood Pressure 106/57 Arterial Blood Pressure 131/68 Arterial Blood Pressure 93/52 Arterial Blood Pressure 127/60 Arterial Blood Pressure 124/70 Pulmonary Artery Pressure 38/22 Pulmonary Artery Pressure 40/24 Pulmonary Artery Pressure 43/26 Pulmonary Artery Pressure 40/24 Pulmonary Artery Pressure 46/26 Pulmonary Artery Pressure 39/23 Pulmonary Artery Pressure 42/24 Pulmonary Artery Pressure 38/22 Pulmonary Artery Pressure 41/23 Pulmonary Artery Pressure 44/25 Pulmonary Artery Pressure 42/24 Pulmonary Artery Pressure 42/24 Pulmonary Artery Pressure 48/26 Pulmonary Artery Pressure 37/22 Pulmonary Artery Pressure 45/22 Pulmonary Artery Pressure 37/21 Pulmonary Artery Pressure 48/29 Cardiac Output 8.6 Cardiac Output 9.8 Cardiac Output 10.2 Cardiac Output 10.2 Cardiac Output 10.2 Cardiac Output 10.2 Cardiac Output 10.2 Cardiac Output 8.6 Cardiac Output 8.6 Cardiac Output 8.6 Cardiac Output 8.6 Cardiac Output 8.6 Cardiac Output 10.2 Cardiac Output 10.2 Cardiac Output 7.1 Cardiac Output 9.2 Cardiac Output 9.2 Cardiac Index 3.5 Cardiac Index 4 Cardiac Index 4.2 Cardiac Index 3.5 Cardiac Index 4.2 Cardiac Index 2.9 Cardiac Index 3.8 HEENT: Short obese neck, no neck masses, endotracheal tube is intact. Chest: Minimal fine crackles at the bases, no rhonchi, no wheezes. Cardiac: Normal S1 and S2, no S3 gallop, 2/6 systolic murmur throughout the precordium. Positive pericardial rub. Abdomen: Obese, soft, nontender, no organomegaly, no rebound, no guarding. Extremities: No clubbing edema or cyanosis. Neurologic: Cannot be assessed, patient is on mechanical ventilation. Sedated, on propofol drip at present. Results - Laboratory Findings CBC and BMP: 08/01/16 16:40 08/01/16 13:55 ABG ABG pH 7.35 (7.35-7.45) 08/01/16 14:11 ABG pCO2 45 mmHg (35-45) 08/01/16 14:11 ABG pO2 272 mmHg (83-108) H 08/01/16 14:11 ABG O2 Saturation 100.0 % (94-97) H 08/01/16 14:11 PT/INR, D-dimer PT 14.1 sec (9.0-12.0) H 08/01/16 13:55 INR 1.4 (<1.1) 08/01/16 13:55 Abnormal lab findings: Abnormal Labs 07/26/16 08/01/16 08/01/16 10:05 06:23 08:48 WBC RBC Hgb Hct RDW Plt Count Neutrophils # Lymphocytes # PT ABG pO2 ABG Total CO2 ABG O2 Saturation Chloride BUN Glucose POC Glucose (mg/dL) 100 H 103 H Calcium Total Protein Albumin Crossmatch See Detail 08/01/16 08/01/16 08/01/16 09:48 10:28 10:54 WBC RBC Hgb Hct RDW Plt Count Neutrophils # Lymphocytes # PT ABG pO2 ABG Total CO2 ABG O2 Saturation Chloride BUN Glucose POC Glucose (mg/dL) 109 H 158 H 194 H Calcium Total Protein Albumin Crossmatch 08/01/16 08/01/16 08/01/16 11:32 12:01 13:55 WBC 13.3 H RBC 3.07 L Hgb 9.5 L D Hct 30.6 L RDW 16.0 H Plt Count 148 L Neutrophils # 11.4 H Lymphocytes # 0.7 L PT ABG pO2 ABG Total CO2 ABG O2 Saturation Chloride BUN Glucose POC Glucose (mg/dL) 190 H 162 H Calcium Total Protein Albumin Crossmatch 08/01/16 08/01/16 08/01/16 13:55 13:55 13:55 WBC RBC Hgb Hct RDW Plt Count Neutrophils # Lymphocytes # PT 14.1 H ABG pO2 ABG Total CO2 ABG O2 Saturation Chloride 109 H BUN 21 H Glucose 137 H POC Glucose (mg/dL) 140 H Calcium 7.9 L Total Protein 5.5 L Albumin 3.3 L Crossmatch 08/01/16 08/01/16 08/01/16 14:11 14:13 15:03 WBC RBC Hgb Hct RDW Plt Count Neutrophils # Lymphocytes # PT ABG pO2 272 H ABG Total CO2 26 H ABG O2 Saturation 100.0 H Chloride BUN Glucose POC Glucose (mg/dL) 124 H 138 H Calcium Total Protein Albumin Crossmatch 08/01/16 08/01/16 08/01/16 16:10 16:40 16:56 WBC 11.2 H RBC 3.09 L Hgb 9.7 L Hct 30.2 L RDW 15.7 H Plt Count 143 L Neutrophils # 10.0 H Lymphocytes # 0.4 L PT ABG pO2 ABG Total CO2 ABG O2 Saturation Chloride BUN Glucose POC Glucose (mg/dL) 161 H 151 H Calcium Total Protein Albumin Crossmatch 08/01/16 08/01/16 18:08 19:04 WBC RBC Hgb Hct RDW Plt Count Neutrophils # Lymphocytes # PT ABG pO2 ABG Total CO2 ABG O2 Saturation Chloride BUN Glucose POC Glucose (mg/dL) 153 H 143 H Calcium Total Protein Albumin Crossmatch - Diagnostic Findings Chest x-ray: image reviewed ( Chest x-ray showed evidence of mild congestive changes endotracheal tube seems to be in proper position.) Assessment and Plan Plan: Impression: 1 status post aortic valve replacement, postoperative day #0, patient is on mechanical ventilation as expected. 2 history of severe aortic stenosis and regurgitation based on previous breath since the [facility] echocardiograms. 3 chronic shortness of breath, multifactorial, however felt to be mostly related to severe aortic valve disease. 4 suspect some component of underlying COPD considering his smoking history, severity of which is not clear. 5 history of hypertension 6 history of hyperlipidemia 7 history of obesity. Recommendation: Continue present supportive care measures, ventilator settings were adjusted accordingly to the most recent ABG, patient will be kept on the protocol for weaning, and likely wean and extubate in the next few hours. will continue to follow. Time with Patient: Greater than 30
[2016-08-01 20:15] LABS: Ionized Calcium 5.1 mg/dL (4.5-5.3)
[2016-08-01 20:17] LABS: Basophils % (A) 0 %; CH 30.6; Eosinophils % (A) 0 %; HCT 31.8 % (39.0-53.0); HDW 2.56; HGB 9.9 gm/dL (13.0-17.5); Hypochromasia Slight; Luc # (Auto) 0.09; Luc % (Auto) 1; Lymphocytes # (A) 0.5 k/uL (1.0-4.8); Lymphocytes % (A) 4 %; MCH 30.8 pg (25.0-35.0); MCV 99.4 fL (80.0-100.0); Macrocytosis Slight; Mean Platelet Volume 8.3; Monocytes # (A) 0.7 k/uL (0-1.0); Monocytes % (A) 6 %; Neutrophils # (A) 10.2 k/uL (1.3-7.7); Neutrophils % (A) 89 %; RDW 15.7 % (11.5-15.5); WBC 11.5 k/uL (3.8-10.6); WBC (Perox) 11.71
[2016-08-01 20:23] LABS: Anion Gap 10 mmol/L; Blood Urea Nitrogen 21 mg/dL (9-20); Calcium 8.5 mg/dL (8.4-10.2); Carbon Dioxide 26 mmol/L (22-30); Chloride 108 mmol/L (98-107); Glucose 133 mg/dL (74-99); Non-African American GFR(MDRD) >60 (>60 ml/min/1.73 sqM); Phosphorous 3.3 mg/dL (2.5-4.5); Potassium 3.9 mmol/L (3.5-5.1); Sodium 144 mmol/L (137-145)
[2016-08-01] MEDS ORDERED: POTASSIUM CHLORIDE 20 MEQ in WATER FOR INJECTION 1 100ML.BAG IVPB ONE (20:45)
[2016-08-01] MEDS: MORPHINE SULFATE 2 MG/ML SYRINGE IVP PRN (20:46)
[2016-08-01 21:09] LABS: Glucose,Whole Blood 132 mg/dL (75-99)
[2016-08-01] MEDS ORDERED: HEPARIN SODIUM,PORCINE 5,000 UNIT/ML 1 ML VIAL SQ SCH (21:18)
[2016-08-01 22:25] LABS: Glucose,Whole Blood 123 mg/dL (75-99)
[2016-08-01] MEDS: MUPIROCIN 2% OINT 22 GM TUBE NASAL SCH (22:34)
[2016-08-01 23:25] LABS: Glucose,Whole Blood 134 mg/dL (75-99)
--- NOTE | 2016-08-01 23:50 | OP ---
DATE OF SERVICE: 08/01/2016 SURGEON: Frank Ram MD SEWING MACHINE MAINTENANCE MECHANIC: Perry MENDOZA SEWING MACHINE MAINTENANCE MECHANIC: Alberto SPENCER PREOPERATIVE DIAGNOSIS: Severe aortic valve disorder with mixed severe aortic valve stenosis and severe aortic valve regurgitation, bicuspid aortic valve, moderate left ventricular and right ventricular dysfunction, pulmonary hypertension, chronic atrial fibrillation, clot in the left atrial appendage, hypertension, morbid obesity, chronic obstructive pulmonary disease. POSTOPERATIVE DIAGNOSIS: Severe aortic valve disorder with mixed severe aortic valve stenosis and severe aortic valve regurgitation, bicuspid aortic valve, moderate left ventricular and right ventricular dysfunction, pulmonary hypertension, chronic atrial fibrillation, clot in the left atrial appendage, hypertension, morbid obesity, chronic obstructive pulmonary disease. OPERATION: 1. Aortic valve replacement using a 27 mm Magna Ease pericardial bioprosthesis. 2. Sternal plating using the tritium system ([employer]) 3. Intraoperative transesophageal echocardiogram and epiaortic scanning. ANESTHESIA: ESTIMATED BLOOD LOSS: SPECIMENS REMOVED: COMPLICATIONS: INDICATION FOR SURGERY: Patient is a 65-year-old patient of Dr. Galicia who has been followed for known aortic valve regurgitation and moderate stenosis, as he is known to have a bicuspid valve. Patient also has been in chronic atrial fibrillation at this point and had a known clot in his left atrial appendage which was still there on the last MARY despite chronic anticoagulation. Patient's cardiac catheterization did not show any significant coronary artery disease. Patient had a dobutamine stress echo that proved that the aortic stenosis was severe. Functionally the patient had noticed decreased functional status. He was turned down for a TAVR procedure in view of the bicuspid aortic valve. Plan is to proceed with aortic valve replacement today with no plan to perform Pope-Maze in view of his chronic persistent atrial fibrillation and biatrial dilatation and clot in his left atrial appendage. Risks of surgery were discussed with him. He understood them and agreed to proceed. DESCRIPTION OF THE PROCEDURE: Patient in supine position. A right internal jugular Lawtey-Jonah catheter was inserted and that showed PA pressure of 60/30 and cardiac index of 1.9. He was brought to the operating room, where general endotracheal anesthesia was induced uneventfully. Rendon catheter was inserted. The chest, abdomen and both lower extremities were prepped and draped using ChloraPrep. Ioban was used to cover the skin. Patient received 3 grams of cefazolin intravenously. Transesophageal echocardiogram confirmed the preoperative finding of severe aortic valve stenosis and regurgitation with moderate left ventricular dysfunction and mild to moderate right ventricular dysfunction with fairly persistent clot in the left atrial appendage and smoke in both atria. There was mild to moderate mitral valve regurgitation and mild to moderate tricuspid valve regurgitation. Midline sternotomy was performed. No bone wax was used. The sternum was relatively thin for this large gentleman. Mediastinal fat was transected between 2 ties and epiaortic scanning revealed normal ascending aorta. Pericardium was opened in an inverted T-fashion. Pericardial cradle was created. Findings included a soft aorta, normal size, and a large heart with adhesions between the left ventricle and the pericardium. We lysed most of those adhesions using a combination of cautery and blunt dissection. We stayed away from the left atrial appendage area. After systemic heparinization, after placement of respective pursestrings, aortic cannulation using a 21 [place] soft flow cannula, venous cannulation using a 32/40 dual-stage venous cannula via the right atrial appendage was performed. Antegrade as well as retrograde cardioplegia catheters were also inserted via respective pledgeted Prolene sutures, pursestrings. Cardiopulmonary bypass was initiated with no issues. During 65 minutes of aortic clamping, myocardial protection was achieved with an initial dose of around 800 mL of antegrade cold blood cardioplegia with adequate arrest at around 500 mL despite the aortic valve regurgitation, followed by 500 mL of retrograde cold blood cardioplegia. All subsequent doses were given retrograde at 15-minute intervals. The last dose was warm blood given via the retrograde route as we were closing the aorta. Patient's temperature was allowed to drift down to around 34 degrees Celsius. The aorta was opened in a transverse fashion around 2 cm above the sinotubular junction. It was pliable. Exploration of the valve confirmed the suspected bicuspid aortic valve, which was quite stenotic. We excised the valve. It was heavily calcified. We debrided the annulus of all calcific deposits to a totally pliable annulus. The left main was in normal position and the right coronary ostia was closer to the R/NC commissure and slightly high. Thorough irrigation was performed. The annulus was sized to a 27 mm Magna Ease pericardial bioprosthesis, which was selected and prepared on the back table as we placed a total of 17 [place]ron 2-0 sutures pledgeted on the ventricular side. Those sutures were passed symmetrically into the valve, which was seated nicely. I intentionally rotated the valve relative to the commissure clockwise to have the post away from the right coronary ostia. The valve seated nicely. All the needles were cut and all the sutures tied using the cor-knot device. The valve was nicely seated in a supra-annular position with no obvious gaps. Both coronary ostia were clear. Re-warming started at this point as we closed the aortotomy using Prolene 4-0 pledgeted on each corner and in 2 layers, the first layer being in a horizontal mattress and the second layer in an [id number] technique. CO2 was flooding the field as the aorta was opened and it was stopped once the aorta was closed. Patient was given a load of Primacor and given magnesium and lidocaine with also usual deairing maneuvers carried before we unclamped the aorta. One ventricular pacing wire was driven via the right ventricular inferior aspect and 2 monopolar pacing wires were affixed on the right atrial appendage and free wall. Patient required one single defibrillation to regain spontaneous sinus rhythm (pre-op chronic AFIB). We were able to AAI pacing with good conduction. After the period of re-perfusion, we were able to wean off cardiopulmonary bypass with moderately dosed Primacor with excellent hemodynamics. The MARY showed no paravalvular leak and de-airing was guided with the MARY. There was no residual air in the ventricle. Test dose than full-dose protamine was given as we decannulated the patient. The retrograde site, the antegrade site, and the aortic cannulation site required additional reinforcement sutures. Two substernal chest tubes were placed. Pericardium was kept open. There was plenty of mediastinal fat to cover the aorta. I placed a right pleural chest tube 28 [place]ian as the right pleura was opened. The left pleural remained intact. After achieving adequate hemostasis and hemodynamics and after correct sponge, instrument and needle count, the sternum was closed using a combination of [place] cables, and a total of 3 cables were used, as well as Tritium plates with a V plate on the manubrium and 2 figure-of-X plates on the sternal body, affixed with 14 and 16 mm screws. Thorough irrigation with cefazolin followed. The rest of the closure proceeded in layers. Skin glue sealant was applied. Patient did not receive any blood bank product. He received 1250 of Cell Saver blood. He was transferred to the ICU in normal sinus rhythm, atrially paced at 80, with a mean arterial pressure of 77, PA pressure of 40/22 on moderate-dose Primacor with a MARY showing improved right and left ventricular function. VANESSAD
[2016-08-02] MEDS: HEPARIN SODIUM,PORCINE 5,000 UNIT/ML 1 ML VIAL SQ SCH ×3 (00:57→15:56)
[2016-08-02] MEDS: MORPHINE SULFATE 2 MG/ML SYRINGE IVP PRN (01:00)
[2016-08-02] MEDS: ceFAZolin 3 GM in SODIUM CHLORIDE 0.9% 100 ML IVPB SCH ×3 (01:00→15:55)
[2016-08-02 02:00] LABS: Glucose,Whole Blood 119 mg/dL (75-99)
[2016-08-02 04:05] LABS: Glucose,Whole Blood 129 mg/dL (75-99)
[2016-08-02] MEDS: ACETAMINOPHEN IV (For NPO) 1,000 MG in EMPTY BAG 1 BAG IVPB SCH ×3 (05:23→18:03)
[2016-08-02 05:58] LABS: Basophils % (A) 0 %; CH 30.7; CHCM 30.9; Eosinophils % (A) 0 %; HCT 32.6 % (39.0-53.0); HDW 2.59; HGB 10.2 gm/dL (13.0-17.5); Hypochromasia Slight; Luc # (Auto) 0.14; Luc % (Auto) 1; Lymphocytes # (A) 0.6 k/uL (1.0-4.8); Lymphocytes % (A) 5 %; MCH 31.5 pg (25.0-35.0); MCHC 31.4 g/dL (31.0-37.0); MCV 100.2 fL (80.0-100.0); Macrocytosis Slight; Mean Platelet Volume 8.6; Monocytes # (A) 0.9 k/uL (0-1.0); Monocytes % (A) 7 %; Neutrophils # (A) 11.2 k/uL (1.3-7.7); Neutrophils % (A) 87 %; RBC 3.25 m/uL (4.30-5.90); RDW 15.7 % (11.5-15.5); WBC 12.8 k/uL (3.8-10.6); WBC (Perox) 13.79
[2016-08-02] MEDS: LACTATED RINGERS 1,000 ML IV SCH ×3 (06:14→09:21)
[2016-08-02 06:38] LABS: ALT 37 U/L (21-72); AST 48 U/L (17-59); Alkaline Phosphatase 50 U/L (38-126); Anion Gap 12 mmol/L; Blood Urea Nitrogen 23 mg/dL (9-20); Calcium 8.4 mg/dL (8.4-10.2); Carbon Dioxide 22 mmol/L (22-30); Chloride 107 mmol/L (98-107); Glucose 114 mg/dL (74-99); Magnesium 1.9 mg/dL (1.6-2.3); Non-African American GFR(MDRD) >60 (>60 ml/min/1.73 sqM); Potassium 4.5 mmol/L (3.5-5.1); Sodium 141 mmol/L (137-145); Total Protein 6.3 g/dL (6.3-8.2)
[2016-08-02 06:46] LABS: Glucose,Whole Blood 98 mg/dL (75-99)
[2016-08-02] MEDS: PANTOPRAZOLE 40 MG/10 ML VIAL IVP SCH (07:41)
[2016-08-02] MEDS: CLOPIDOGREL 75 MG TAB PO SCH (07:41)
[2016-08-02] MEDS: ASPIRIN 325 MG TAB PO SCH (07:41)
[2016-08-02] MEDS: MUPIROCIN 2% OINT 22 GM TUBE NASAL SCH ×2 (07:42→21:14)
[2016-08-02] MEDS: ATORVASTATIN 40 MG TAB PO SCH (07:42)
[2016-08-02] MEDS: MAGNESIUM SULFATE-D5W PMX 1 GM in DEXTROSE/WATER 1 100ML.BAG IVPB SCH ×2 (07:46→09:20)
[2016-08-02] MEDS ORDERED: FUROSEMIDE 10 MG/ML 4 ML VIAL IV STA (08:04)
[2016-08-02 08:21] LABS: Glucose,Whole Blood 113 mg/dL (75-99)
[2016-08-02] MEDS: IPRATROPIUM-ALBUTEROL 3 ML NEB INHALATION SCH ×4 (08:48→19:19)
[2016-08-02] MEDS ORDERED: METOPROLOL TARTRATE 12.5 MG TAB PO SCH (09:00)
--- NOTE | 2016-08-02 09:12 | XR ---
EXAMINATION TYPE: XR chest 1V portable DATE OF EXAM: 08/02/2016 6:35 AM COMPARISON: 08/01/2016 HISTORY: Postop cardiac surgery TECHNIQUE: Single frontal view of the chest is obtained. FINDINGS: Heart is markedly enlarged. Mediastinal drain and chest tube noted. Bellamy-Jonah catheter see n. Subsegmental changes are noted at both lung bases. Interstitial pattern noted. Postsurgical change s identified. Suggestion of epicardial lead. IMPRESSION: 1. Basilar atelectasis or infiltrate with mild venous congestion
[2016-08-02 09:37] LABS: Glucose,Whole Blood 115 mg/dL (75-99)
[2016-08-02 11:00] LABS: Glucose,Whole Blood 131 mg/dL (75-99)
--- NOTE | 2016-08-02 12:08 | CONS ---
DATE OF CONSULTATION: Mr. Gaston is a 65-year-old male who has underwent aortic valve replacement with bioprosthetic valve yesterday by Dr. Ram. He has a known history of bicuspid aortic valve and had atrial fibrillation. He is extubated, paced, he has soreness in the chest, but no significant dyspnea. He denies any dizziness or palpitation. He denies any nausea. At the time of his cardiac catheterization, he had no significant coronary artery disease. He has been followed on a regular basis by Dr. Galicia and his transesophageal echocardiogram showed an ejection fraction of 40% to 45%. Patient prior to his presentation has been complaining of the progressive dyspnea on exertion and the symptoms of fatigue. He has history of chest discomfort in the past. He has stopped smoking about 2 years ago. His coronary risk factors are positive for history of hypertension, diabetes, he stopped smoking as noted. His medications prior to admission included Coumadin, Tenormin 25 mg daily, Lasix 40 mg twice a day, Zestril 2.5 mg daily, hydralazine 25 mg 3 times a day and metformin. REVIEW OF SYSTEMS: RESPIRATORY SYSTEM: He has mild dyspnea, but no documented obstructive lung disease. GI SYSTEM: No recent GI bleeding. No peptic ulcer disease. SYSTEM: No dysuria or hematuria. NERVOUS SYSTEM: No history of stroke or seizure. PHYSICAL EXAMINATION: Blood pressure 121/60 with a heart in the 80s. HEAD: Normocephalic. EYES: Sclerae nonicteric. NECK: No bruit. LUNGS: Mild decrease in the breath sound. HEART: Regular rate and rhythm. S1, S2 with systolic murmur. No rub. ABDOMEN: Soft, nontender, positive bowel sounds. No organomegaly. EXTREMITIES: No significant edema. Lab data revealed a BUN and creatinine of 23 and 0.8. Potassium 4.5. Hemoglobin of 10.2. IMPRESSION: 1. Status post aortic valve replacement. 2. Prior history of atrial fibrillation. 3. Prior history of cardiomyopathy. RECOMMENDATION: From the cardiac standpoint, will continue on the present supportive care. Follow his renal function and his blood pressure. Will see what his heart rate in the next 24 hours. If he has persistent bradycardia, then he may require a permanent pacemaker implantation. Thank you for this consult. Will follow with you.
[2016-08-02 12:12] LABS: Glucose,Whole Blood 139 mg/dL (75-99)
[2016-08-02 13:08] LABS: Glucose,Whole Blood 131 mg/dL (75-99)
[2016-08-02] MEDS ORDERED: BISACODYL 10 MG SUPP RECTAL PRN (13:18)
[2016-08-02] MEDS ORDERED: MAGNESIUM HYDROXIDE 2,400 MG/10 ML CUP PO PRN (13:18)
[2016-08-02] MEDS ORDERED: IPRATROPIUM-ALBUTEROL 3 ML NEB INHALATION PRN (13:19)
[2016-08-02 13:43] LABS: ABG Base Excess 1.2 mmol/L; ABG HCO3 25 mmol/L (21-25); ABG PCO2 40 mmHg (35-45); ABG PH 7.42 (7.35-7.45); ABG PO2 236 mmHg (83-108); ABG TCO2 27 mmol/L (19-24)
[2016-08-02 13:44] LABS: ABG HCO3 26 mmol/L (21-25); ABG PCO2 46 mmHg (35-45); ABG PH 7.38 (7.35-7.45); ABG PO2 290 mmHg (83-108)
[2016-08-02 13:44] LABS: ABG Oxygen Saturation 99.8 % (94-97)
[2016-08-02 13:45] LABS: ABG Base Excess 1.4 mmol/L; ABG Oxygen Saturation 99.9 % (94-97); ABG TCO2 28 mmol/L (19-24)
[2016-08-02 13:46] LABS: ABG Base Excess 1.5 mmol/L; ABG HCO3 26 mmol/L (21-25); ABG Oxygen Saturation 99.8 % (94-97); ABG PCO2 44 mmHg (35-45); ABG PO2 250 mmHg (83-108); ABG TCO2 28 mmol/L (19-24)
[2016-08-02 13:47] LABS: ABG Base Excess 1.1 mmol/L; ABG HCO3 26 mmol/L (21-25); ABG Oxygen Saturation 99.9 % (94-97); ABG PCO2 44 mmHg (35-45); ABG PH 7.39 (7.35-7.45); ABG PO2 343 mmHg (83-108); ABG TCO2 27 mmol/L (19-24)
[2016-08-02 13:48] LABS: ABG Base Excess 0.7 mmol/L; ABG HCO3 23 mmol/L (21-25); ABG PCO2 29 mmHg (35-45); ABG PH 7.51 (7.35-7.45); ABG PO2 >420 mmHg (83-108); ABG TCO2 24 mmol/L (19-24)
[2016-08-02 13:49] LABS: ABG Base Excess 0.7 mmol/L; ABG HCO3 26 mmol/L (21-25); ABG Oxygen Saturation 99.9 % (94-97); ABG PCO2 46 mmHg (35-45); ABG PH 7.37 (7.35-7.45); ABG PO2 371 mmHg (83-108); ABG TCO2 27 mmol/L (19-24)
[2016-08-02 14:35] LABS: Glucose,Whole Blood 129 mg/dL (75-99)
--- NOTE | 2016-08-02 14:40 | P.PN ---
Subjective Principal diagnosis: Severe aortic valve disorder with mixed severe aortic valve stenosis and severe aortic valve regurgitation, bicuspid aortic valve, moderate left ventricular and right ventricular dysfunction, pulmonary hypertension, chronic atrial fibrillation, clots in the left atrial appendage, hypertension, morbid obesity, chronic obstructive pulmonary disease. POD #1 aortic valve replacement using a 27 mm magna ease pericardial bioprosthesis. Intraoperative transesophageal echocardiogram and epi-epi- aortic scanning. Patient currently sitting up in the chair in no apparent distress. Denies pain. Objective - Vital Signs Vital signs: Vital Signs Temp 97.9 F 08/01/16 06:08 Pulse 74 08/02/16 07:00 Resp 33 H 08/02/16 07:00 BP 139/61 08/02/16 07:00 Pulse Ox 96 08/02/16 07:00 Intake & Output 08/01/16 08/02/16 08/02/16 18:59 06:59 18:59 Intake Total 1557 1323.616 59 Output Total 4525 988 51 Balance -2968 335.616 8 Weight 139.6 kg Intake: IV 455 297 9 CO/CI 360 180 Pressure Bags 63 117 9 Intake, IV Titration 1102 1026.616 50 Amount ACETAMINOPHEN IV (For NPO 100 ) 1,000 mg In Empty Bag 1 bag @ 400 mls/hr IVPB Q6HR ADELINA Rx#:[id number] Albumin Human 5% 250 ml 500 In Empty Bag 1 bag @ 250 mls/hr IVPB Q1HR PRN Rx#: [id number] Calcium Gluconate 2,000 100 mg In Sodium Chloride 0.9 % 100 ml @ 100 mls/hr IVPB ONCE ONE Rx#: [id number] Clevidipine Butyrate 25 22.066 mg In Empty Bag 1 bag @ 1 MG/HR 2 mls/hr IV .Q24H ADELINA Rx#:[id number] Insulin Regular 100 unit 41.963 In Sodium Chloride 0.9% 100 ml @ Per Protocol IV .Q0M ADELINA Rx#:[id number] Lactated Ringers 1,000 ml 402 640 50 @ 50 mls/hr IV .Q20H ADELINA Rx#:[id number] Potassium Chloride 20 meq 100 In Water For Injection 1 100ml.bag @ 50 mls/hr IVPB ONCE ONE Rx#: [id number] Propofol 500 mg In Empty 22.587 Bag 1 bag @ Titrate IV . Q0M ADELINA Rx#:[id number] ceFAZolin 3 gm In Sodium 100 100 Chloride 0.9% 100 ml @ 100 mls/hr IVPB Q8HR ADELINA Rx#:[id number] Output: Chest Tube Drainage 340 395 20 Chest Tube Left Pleural/ 80 Mediastinal Chest Tube Mediastinal 180 200 20 Chest Tube Right Lateral 80 195 0 Chest Urine 1385 593 31 Estimated Blood Loss 2800 Other: Voiding Method Indwelling Catheter Indwelling Catheter # Bowel Movements 0 ABP, PAP, CO, CI - Last Documented Arterial Blood Pressure 119/58 Pulmonary Artery Pressure 43/22 Cardiac Output 10.7 Cardiac Index 4.4 - Constitutional General appearance: Present: cooperative, no acute distress - Respiratory Details: Lungs sounds diminished, coarse bilateral bases. Respirations even, nonlabored. Currently on 40% Ventimask. Able to achieve 750 mL on his incentive spirometry. Mediastinal, right pleural chest tube to -20 cm wall suction, draining serosanguineous fluid. Mediastinal tube with 300 mL output last 12 hours, 460 mL output last 24 hours. Right pleural chest tube with 195 mL output in the last 12 hours, 275 mL's output in the last 24 hours. - Cardiovascular Details: S1, S2 present. Currently ventricular paced on telemetry. Pause of generator reveals atrial fibrillation with a rate in the 50s. Chest stable. Heart hugger in place with patient demonstrating appropriate use. SCDs present. Bilateral lower extremity edema present. - Gastrointestinal Gastrointestinal Comment(s): Abdomen soft, nontender, nondistended. Hypoactive bowel sounds 4 quadrants. Denies flatus. - Genitourinary Genitourinary Comment(s): Rendon present draining clear yellow urine. Approximately 30-75 mL per hour. - Integumentary Integumentary Comment(s): Anterior chest incision covered with dry intact silver dressing. - Musculoskeletal Musculoskeletal Comment(s): Up to the chair with assist 2. Strength equal bilaterally. - Psychiatric Psychiatric: Present: A&O x's 3, appropriate affect, intact judgment & insight - Allied health notes Allied health notes reviewed: nursing - Labs CBC & Chem 7: 08/02/16 05:40 08/02/16 05:40 Labs: Abnormal Lab Results - Last 24 Hours (Table) 07/26/16 08/01/16 08/01/16 Range/Units 10:05 08:48 09:48 WBC (3.8-10.6) k/uL RBC (4.30-5.90) m/uL Hgb (13.0-17.5) gm/dL Hct (39.0-53.0) % MCV (80.0-100.0) fL RDW (11.5-15.5) % Plt Count (150-450) k/uL Neutrophils # (1.3-7.7) k/uL Lymphocytes # (1.0-4.8) k/uL PT (9.0-12.0) sec ABG pO2 (83-108) mmHg ABG Total CO2 (19-24) mmol/L ABG O2 Saturation (94-97) % Chloride (98-107) mmol/L BUN (9-20) mg/dL Glucose (74-99) mg/dL POC Glucose (mg/dL) 103 H 109 H (75-99) mg/dL Calcium (8.4-10.2) mg/dL Total Protein (6.3-8.2) g/dL Albumin (3.5-5.0) g/dL Crossmatch See Detail 08/01/16 08/01/16 08/01/16 Range/Units 10:28 10:54 11:32 WBC (3.8-10.6) k/uL RBC (4.30-5.90) m/uL Hgb (13.0-17.5) gm/dL Hct (39.0-53.0) % MCV (80.0-100.0) fL RDW (11.5-15.5) % Plt Count (150-450) k/uL Neutrophils # (1.3-7.7) k/uL Lymphocytes # (1.0-4.8) k/uL PT (9.0-12.0) sec ABG pO2 (83-108) mmHg ABG Total CO2 (19-24) mmol/L ABG O2 Saturation (94-97) % Chloride (98-107) mmol/L BUN (9-20) mg/dL Glucose (74-99) mg/dL POC Glucose (mg/dL) 158 H 194 H 190 H (75-99) mg/dL Calcium (8.4-10.2) mg/dL Total Protein (6.3-8.2) g/dL Albumin (3.5-5.0) g/dL Crossmatch 08/01/16 08/01/16 08/01/16 Range/Units 12:01 13:55 13:55 WBC 13.3 H (3.8-10.6) k/uL RBC 3.07 L (4.30-5.90) m/uL Hgb 9.5 L D (13.0-17.5) gm/dL Hct 30.6 L (39.0-53.0) % MCV (80.0-100.0) fL RDW 16.0 H (11.5-15.5) % Plt Count 148 L (150-450) k/uL Neutrophils # 11.4 H (1.3-7.7) k/uL Lymphocytes # 0.7 L (1.0-4.8) k/uL PT (9.0-12.0) sec ABG pO2 (83-108) mmHg ABG Total CO2 (19-24) mmol/L ABG O2 Saturation (94-97) % Chloride 109 H (98-107) mmol/L BUN 21 H (9-20) mg/dL Glucose 137 H (74-99) mg/dL POC Glucose (mg/dL) 162 H (75-99) mg/dL Calcium 7.9 L (8.4-10.2) mg/dL Total Protein 5.5 L (6.3-8.2) g/dL Albumin 3.3 L (3.5-5.0) g/dL Crossmatch 08/01/16 08/01/16 08/01/16 Range/Units 13:55 13:55 14:11 WBC (3.8-10.6) k/uL RBC (4.30-5.90) m/uL Hgb (13.0-17.5) gm/dL Hct (39.0-53.0) % MCV (80.0-100.0) fL RDW (11.5-15.5) % Plt Count (150-450) k/uL Neutrophils # (1.3-7.7) k/uL Lymphocytes # (1.0-4.8) k/uL PT 14.1 H (9.0-12.0) sec ABG pO2 272 H (83-108) mmHg ABG Total CO2 26 H (19-24) mmol/L ABG O2 Saturation 100.0 H (94-97) % Chloride (98-107) mmol/L BUN (9-20) mg/dL Glucose (74-99) mg/dL POC Glucose (mg/dL) 140 H (75-99) mg/dL Calcium (8.4-10.2) mg/dL Total Protein (6.3-8.2) g/dL Albumin (3.5-5.0) g/dL Crossmatch 08/01/16 08/01/16 08/01/16 Range/Units 14:13 15:03 16:10 WBC (3.8-10.6) k/uL RBC (4.30-5.90) m/uL Hgb (13.0-17.5) gm/dL Hct (39.0-53.0) % MCV (80.0-100.0) fL RDW (11.5-15.5) % Plt Count (150-450) k/uL Neutrophils # (1.3-7.7) k/uL Lymphocytes # (1.0-4.8) k/uL PT (9.0-12.0) sec ABG pO2 (83-108) mmHg ABG Total CO2 (19-24) mmol/L ABG O2 Saturation (94-97) % Chloride (98-107) mmol/L BUN (9-20) mg/dL Glucose (74-99) mg/dL POC Glucose (mg/dL) 124 H 138 H 161 H (75-99) mg/dL Calcium (8.4-10.2) mg/dL Total Protein (6.3-8.2) g/dL Albumin (3.5-5.0) g/dL Crossmatch 08/01/16 08/01/16 08/01/16 Range/Units 16:40 16:56 18:08 WBC 11.2 H (3.8-10.6) k/uL RBC 3.09 L (4.30-5.90) m/uL Hgb 9.7 L (13.0-17.5) gm/dL Hct 30.2 L (39.0-53.0) % MCV (80.0-100.0) fL RDW 15.7 H (11.5-15.5) % Plt Count 143 L (150-450) k/uL Neutrophils # 10.0 H (1.3-7.7) k/uL Lymphocytes # 0.4 L (1.0-4.8) k/uL PT (9.0-12.0) sec ABG pO2 (83-108) mmHg ABG Total CO2 (19-24) mmol/L ABG O2 Saturation (94-97) % Chloride (98-107) mmol/L BUN (9-20) mg/dL Glucose (74-99) mg/dL POC Glucose (mg/dL) 151 H 153 H (75-99) mg/dL Calcium (8.4-10.2) mg/dL Total Protein (6.3-8.2) g/dL Albumin (3.5-5.0) g/dL Crossmatch 08/01/16 08/01/16 08/01/16 Range/Units 19:04 19:55 20:00 WBC (3.8-10.6) k/uL RBC (4.30-5.90) m/uL Hgb (13.0-17.5) gm/dL Hct (39.0-53.0) % MCV (80.0-100.0) fL RDW (11.5-15.5) % Plt Count (150-450) k/uL Neutrophils # (1.3-7.7) k/uL Lymphocytes # (1.0-4.8) k/uL PT (9.0-12.0) sec ABG pO2 (83-108) mmHg ABG Total CO2 (19-24) mmol/L ABG O2 Saturation (94-97) % Chloride 108 H (98-107) mmol/L BUN 21 H (9-20) mg/dL Glucose 133 H (74-99) mg/dL POC Glucose (mg/dL) 143 H 144 H (75-99) mg/dL Calcium (8.4-10.2) mg/dL Total Protein (6.3-8.2) g/dL Albumin (3.5-5.0) g/dL Crossmatch 08/01/16 08/01/16 08/01/16 Range/Units 20:00 20:02 21:04 WBC 11.5 H (3.8-10.6) k/uL RBC 3.20 L (4.30-5.90) m/uL Hgb 9.9 L (13.0-17.5) gm/dL Hct 31.8 L (39.0-53.0) % MCV (80.0-100.0) fL RDW 15.7 H (11.5-15.5) % Plt Count (150-450) k/uL Neutrophils # 10.2 H (1.3-7.7) k/uL Lymphocytes # 0.5 L (1.0-4.8) k/uL PT (9.0-12.0) sec ABG pO2 71 L (83-108) mmHg ABG Total CO2 25 H (19-24) mmol/L ABG O2 Saturation 93.0 L (94-97) % Chloride (98-107) mmol/L BUN (9-20) mg/dL Glucose (74-99) mg/dL POC Glucose (mg/dL) 132 H (75-99) mg/dL Calcium (8.4-10.2) mg/dL Total Protein (6.3-8.2) g/dL Albumin (3.5-5.0) g/dL Crossmatch 08/01/16 08/01/16 08/02/16 Range/Units 22:04 23:23 01:46 WBC (3.8-10.6) k/uL RBC (4.30-5.90) m/uL Hgb (13.0-17.5) gm/dL Hct (39.0-53.0) % MCV (80.0-100.0) fL RDW (11.5-15.5) % Plt Count (150-450) k/uL Neutrophils # (1.3-7.7) k/uL Lymphocytes # (1.0-4.8) k/uL PT (9.0-12.0) sec ABG pO2 (83-108) mmHg ABG Total CO2 (19-24) mmol/L ABG O2 Saturation (94-97) % Chloride (98-107) mmol/L BUN (9-20) mg/dL Glucose (74-99) mg/dL POC Glucose (mg/dL) 123 H 134 H 119 H (75-99) mg/dL Calcium (8.4-10.2) mg/dL Total Protein (6.3-8.2) g/dL Albumin (3.5-5.0) g/dL Crossmatch 08/02/16 08/02/16 08/02/16 Range/Units 04:03 05:40 05:40 WBC 12.8 H (3.8-10.6) k/uL RBC 3.25 L (4.30-5.90) m/uL Hgb 10.2 L (13.0-17.5) gm/dL Hct 32.6 L (39.0-53.0) % MCV 100.2 H (80.0-100.0) fL RDW 15.7 H (11.5-15.5) % Plt Count (150-450) k/uL Neutrophils # 11.2 H (1.3-7.7) k/uL Lymphocytes # 0.6 L (1.0-4.8) k/uL PT (9.0-12.0) sec ABG pO2 (83-108) mmHg ABG Total CO2 (19-24) mmol/L ABG O2 Saturation (94-97) % Chloride (98-107) mmol/L BUN 23 H (9-20) mg/dL Glucose 114 H (74-99) mg/dL POC Glucose (mg/dL) 129 H (75-99) mg/dL Calcium (8.4-10.2) mg/dL Total Protein (6.3-8.2) g/dL Albumin (3.5-5.0) g/dL Crossmatch 08/02/16 Range/Units 08:19 WBC (3.8-10.6) k/uL RBC (4.30-5.90) m/uL Hgb (13.0-17.5) gm/dL Hct (39.0-53.0) % MCV (80.0-100.0) fL RDW (11.5-15.5) % Plt Count (150-450) k/uL Neutrophils # (1.3-7.7) k/uL Lymphocytes # (1.0-4.8) k/uL PT (9.0-12.0) sec ABG pO2 (83-108) mmHg ABG Total CO2 (19-24) mmol/L ABG O2 Saturation (94-97) % Chloride (98-107) mmol/L BUN (9-20) mg/dL Glucose (74-99) mg/dL POC Glucose (mg/dL) 113 H (75-99) mg/dL Calcium (8.4-10.2) mg/dL Total Protein (6.3-8.2) g/dL Albumin (3.5-5.0) g/dL Crossmatch - Imaging and Cardiology Chest x-ray: report reviewed, image reviewed Assessment and Plan (1) Severe aortic valve stenosis Status: Acute (2) Severe aortic valve regurgitation Status: Acute (3) Bicuspid aortic valve Status: Acute (4) Pulmonary hypertension Status: Acute (5) Moderate left ventricular systolic dysfunction Status: Acute (6) Moderate right ventricular systolic dysfunction Status: Acute (7) Chronic atrial fibrillation Status: Acute (8) Hypertension Status: Acute (9) Morbid obesity Status: Acute (10) COPD (chronic obstructive pulmonary disease) Status: Acute Plan: 1. Continue aspirin, statin, Plavix, heparin SQ. Hold Beta may for now secondary to bradycardia with need for epicardial pacing. 2. Keep pacemaker generator attached to epicardial pacemaker wires with a rate of 80 bpm. 3. Discussed the possibility of need for permanent pacemaker with cardiology, await their recommendations. 4. DC [place]. 5. Wean O2 as tolerated. Continue to encourage incentive spirometry use. 6. Lasix 40 mg IV push 1 dose today. 7. Wean cleviprex as tolerated. 8. Increase activity, out of bed in chair all day, ambulate in room. PT to follow 9. GI/DVT prophylaxis. 10.Discussed with pulmonology the need for inhaled corticosteroids. Will defer to their judgment. 11. More recommendations as patient progresses. Time with Patient: Greater than 30
--- NOTE | 2016-08-02 15:31 | P.PN ---
Subjective Principal diagnosis: Status post aortic valve replacement using 27 mm magna ease pericardial bioprosthesis. Postoperative day #1. Patient is status post aortic valve replacement for severe aortic valve disorder with mixed aortic valve regurgitation and stenosis. Patient had a bicuspid aortic valve, moderate left ventricular and right ventricular dysfunction, pulmonary hypertension, and chronic atrial fibrillation he also had clots in the left atrial appendage. Patient has underlying COPD, morbid obesity, and his postoperative course was relatively uneventful. Patient was extubated last night without any major issues. Doing well today, comfortable, sitting in bed, in no distress. Objective - Vital Signs Vital signs: Vital Signs Temp 98.4 F 08/02/16 12:00 Pulse 80 08/02/16 13:00 Resp 17 08/02/16 13:00 BP 121/56 08/02/16 10:00 Pulse Ox 96 08/02/16 13:00 Intake & Output 08/01/16 08/02/16 08/02/16 18:59 06:59 18:59 Intake Total 1557 7579.661 4170 Output Total 4525 988 1096 Balance -2968 335.616 -93 Weight 139.6 kg Intake: IV 455 297 93 CO/CI 360 180 30 Pressure Bags 63 117 63 Intake, IV Titration 1102 1026.616 910 Amount ACETAMINOPHEN IV (For NPO 100 500 ) 1,000 mg In Empty Bag 1 bag @ 400 mls/hr IVPB Q6HR [facility] Rx#:[id number] Albumin Human 5% 250 ml 500 In Empty Bag 1 bag @ 250 mls/hr IVPB Q1HR [facility]N Rx#: [id number] Calcium Gluconate 2,000 100 mg In Sodium Chloride 0.9 % 100 ml @ 100 mls/hr IVPB ONCE ONE Rx#: [id number] Clevidipine Butyrate 25 22.066 mg In Empty Bag 1 bag @ 1 MG/HR 2 mls/hr IV .Q24H [facility] Rx#:[id number] Insulin Regular 100 unit 41.963 In Sodium Chloride 0.9% 100 ml @ Per Protocol IV .Q0M [facility] Rx#:[id number] Lactated Ringers 1,000 ml 402 640 210 @ 50 mls/hr IV .Q20H [facility] Rx#:[id number] Magnesium Sulfate-D5w Pmx 100 1 gm In Dextrose/Water 1 100ml.bag @ 100 mls/hr IVPB Q1H [facility] Rx#: [id number] Potassium Chloride 20 meq 100 In Water For Injection 1 100ml.bag @ 50 mls/hr IVPB ONCE ONE Rx#: [id number] Propofol 500 mg In Empty 22.587 Bag 1 bag @ Titrate IV . Q0M [facility] Rx#:[id number] ceFAZolin 3 gm In Sodium 100 100 100 Chloride 0.9% 100 ml @ 100 mls/hr IVPB Q8HR [facility] Rx#:[id number] Output: Chest Tube Drainage 340 395 20 Chest Tube Left Pleural/ 80 Mediastinal Chest Tube Mediastinal 180 200 20 Chest Tube Right Lateral 80 195 0 Chest Urine 9661 675 6672 Estimated Blood Loss 2800 Other: Voiding Method Indwelling Catheter Indwelling Catheter Indwelling Catheter # Bowel Movements 0 0 ABP, PAP, CO, CI - Last Documented Arterial Blood Pressure 117/65 Pulmonary Artery Pressure 36/21 Cardiac Output 8.6 Cardiac Index 4.4 - Exam Physical Exam: Revealed a 65-year-old obese in no distress. HEENT:[Neck is supple.] [No neck masses.] [No thyromegaly.] [No JVD.] Chest: [Diminished breath sounds at the bases, no rhonchi no wheezes.] Cardiac Exam: [Normal S1 and S2, no S3 gallop, 2/6 systolic murmur over the precordium Abdomen: [Soft, nontender, no megaly, no rebound, no guarding, normal bowel sounds.] Extremities: [No clubbing, no edema, no cyanosis.] Neurological Exam: [No focal neurologic deficit.] - Labs CBC & Chem 7: 08/02/16 05:40 08/02/16 05:40 Labs: Abnormal Lab Results - Last 24 Hours (Table) 07/26/16 08/01/16 08/01/16 Range/Units 10:05 08:49 09:50 WBC (3.8-10.6) k/uL RBC (4.30-5.90) m/uL Hgb (13.0-17.5) gm/dL Hct (39.0-53.0) % MCV (80.0-100.0) fL RDW (11.5-15.5) % Plt Count (150-450) k/uL Neutrophils # (1.3-7.7) k/uL Lymphocytes # (1.0-4.8) k/uL ABG pH (7.35-7.45) ABG pCO2 46 H (35-45) mmHg ABG pO2 236 H 290 H (83-108) mmHg ABG HCO3 26 H (21-25) mmol/L ABG Total CO2 27 H 28 H (19-24) mmol/L ABG O2 Saturation 99.8 H 99.9 H (94-97) % ABG Potassium (3.4-4.5) mmol/L Chloride (98-107) mmol/L BUN (9-20) mg/dL Glucose (74-99) mg/dL POC Glucose (mg/dL) (75-99) mg/dL Arterial Blood Potassium (3.4-4.5) mmol/L Crossmatch See Detail 08/01/16 08/01/16 08/01/16 Range/Units 10:29 10:56 11:34 WBC (3.8-10.6) k/uL RBC (4.30-5.90) m/uL Hgb (13.0-17.5) gm/dL Hct (39.0-53.0) % MCV (80.0-100.0) fL RDW (11.5-15.5) % Plt Count (150-450) k/uL Neutrophils # (1.3-7.7) k/uL Lymphocytes # (1.0-4.8) k/uL ABG pH 7.51 H (7.35-7.45) ABG pCO2 29 L (35-45) mmHg ABG pO2 250 H 343 H >420 H (83-108) mmHg ABG HCO3 26 H 26 H (21-25) mmol/L ABG Total CO2 28 H 27 H (19-24) mmol/L ABG O2 Saturation 99.8 H 99.9 H 100.0 H (94-97) % ABG Potassium 4.7 H (3.4-4.5) mmol/L Chloride (98-107) mmol/L BUN (9-20) mg/dL Glucose (74-99) mg/dL POC Glucose (mg/dL) (75-99) mg/dL Arterial Blood Potassium 4.7 H (3.4-4.5) mmol/L Crossmatch 0208/01/16 08/01/16 Range/Units 12:02 16:10 16:40 WBC 11.2 H (3.8-10.6) k/uL RBC 3.09 L (4.30-5.90) m/uL Hgb 9.7 L (13.0-17.5) gm/dL Hct 30.2 L (39.0-53.0) % MCV (80.0-100.0) fL RDW 15.7 H (11.5-15.5) % Plt Count 143 L (150-450) k/uL Neutrophils # 10.0 H (1.3-7.7) k/uL Lymphocytes # 0.4 L (1.0-4.8) k/uL ABG pH (7.35-7.45) ABG pCO2 46 H (35-45) mmHg ABG pO2 371 H (83-108) mmHg ABG HCO3 26 H (21-25) mmol/L ABG Total CO2 27 H (19-24) mmol/L ABG O2 Saturation 99.9 H (94-97) % ABG Potassium (3.4-4.5) mmol/L Chloride (98-107) mmol/L BUN (9-20) mg/dL Glucose (74-99) mg/dL POC Glucose (mg/dL) 161 H (75-99) mg/dL Arterial Blood Potassium (3.4-4.5) mmol/L Crossmatch 08/01/16 08/01/16 08/01/16 Range/Units 16:56 18:08 19:04 WBC (3.8-10.6) k/uL RBC (4.30-5.90) m/uL Hgb (13.0-17.5) gm/dL Hct (39.0-53.0) % MCV (80.0-100.0) fL RDW (11.5-15.5) % Plt Count (150-450) k/uL Neutrophils # (1.3-7.7) k/uL Lymphocytes # (1.0-4.8) k/uL ABG pH (7.35-7.45) ABG pCO2 (35-45) mmHg ABG pO2 (83-108) mmHg ABG HCO3 (21-25) mmol/L ABG Total CO2 (19-24) mmol/L ABG O2 Saturation (94-97) % ABG Potassium (3.4-4.5) mmol/L Chloride (98-107) mmol/L BUN (9-20) mg/dL Glucose (74-99) mg/dL POC Glucose (mg/dL) 151 H 153 H 143 H (75-99) mg/dL Arterial Blood Potassium (3.4-4.5) mmol/L Crossmatch 08/01/16 08/01/16 08/01/16 Range/Units 19:55 20:00 20:00 WBC 11.5 H (3.8-10.6) k/uL RBC 3.20 L (4.30-5.90) m/uL Hgb 9.9 L (13.0-17.5) gm/dL Hct 31.8 L (39.0-53.0) % MCV (80.0-100.0) fL RDW 15.7 H (11.5-15.5) % Plt Count (150-450) k/uL Neutrophils # 10.2 H (1.3-7.7) k/uL Lymphocytes # 0.5 L (1.0-4.8) k/uL ABG pH (7.35-7.45) ABG pCO2 (35-45) mmHg ABG pO2 (83-108) mmHg ABG HCO3 (21-25) mmol/L ABG Total CO2 (19-24) mmol/L ABG O2 Saturation (94-97) % ABG Potassium (3.4-4.5) mmol/L Chloride 108 H (98-107) mmol/L BUN 21 H (9-20) mg/dL Glucose 133 H (74-99) mg/dL POC Glucose (mg/dL) 144 H (75-99) mg/dL Arterial Blood Potassium (3.4-4.5) mmol/L Crossmatch 08/01/16 08/01/16 08/01/16 Range/Units 20:02 21:04 22:04 WBC (3.8-10.6) k/uL RBC (4.30-5.90) m/uL Hgb (13.0-17.5) gm/dL Hct (39.0-53.0) % MCV (80.0-100.0) fL RDW (11.5-15.5) % Plt Count (150-450) k/uL Neutrophils # (1.3-7.7) k/uL Lymphocytes # (1.0-4.8) k/uL ABG pH (7.35-7.45) ABG pCO2 (35-45) mmHg ABG pO2 71 L (83-108) mmHg ABG HCO3 (21-25) mmol/L ABG Total CO2 25 H (19-24) mmol/L ABG O2 Saturation 93.0 L (94-97) % ABG Potassium (3.4-4.5) mmol/L Chloride (98-107) mmol/L BUN (9-20) mg/dL Glucose (74-99) mg/dL POC Glucose (mg/dL) 132 H 123 H (75-99) mg/dL Arterial Blood Potassium (3.4-4.5) mmol/L Crossmatch 08/01/16 08/02/16 08/02/16 Range/Units 23:23 01:46 04:03 WBC (3.8-10.6) k/uL RBC (4.30-5.90) m/uL Hgb (13.0-17.5) gm/dL Hct (39.0-53.0) % MCV (80.0-100.0) fL RDW (11.5-15.5) % Plt Count (150-450) k/uL Neutrophils # (1.3-7.7) k/uL Lymphocytes # (1.0-4.8) k/uL ABG pH (7.35-7.45) ABG pCO2 (35-45) mmHg ABG pO2 (83-108) mmHg ABG HCO3 (21-25) mmol/L ABG Total CO2 (19-24) mmol/L ABG O2 Saturation (94-97) % ABG Potassium (3.4-4.5) mmol/L Chloride (98-107) mmol/L BUN (9-20) mg/dL Glucose (74-99) mg/dL POC Glucose (mg/dL) 134 H 119 H 129 H (75-99) mg/dL Arterial Blood Potassium (3.4-4.5) mmol/L Crossmatch 08/02/16 08/02/16 08/02/16 Range/Units 05:40 05:40 08:19 WBC 12.8 H (3.8-10.6) k/uL RBC 3.25 L (4.30-5.90) m/uL Hgb 10.2 L (13.0-17.5) gm/dL Hct 32.6 L (39.0-53.0) % MCV 100.2 H (80.0-100.0) fL RDW 15.7 H (11.5-15.5) % Plt Count (150-450) k/uL Neutrophils # 11.2 H (1.3-7.7) k/uL Lymphocytes # 0.6 L (1.0-4.8) k/uL ABG pH (7.35-7.45) ABG pCO2 (35-45) mmHg ABG pO2 (83-108) mmHg ABG HCO3 (21-25) mmol/L ABG Total CO2 (19-24) mmol/L ABG O2 Saturation (94-97) % ABG Potassium (3.4-4.5) mmol/L Chloride (98-107) mmol/L BUN 23 H (9-20) mg/dL Glucose 114 H (74-99) mg/dL POC Glucose (mg/dL) 113 H (75-99) mg/dL Arterial Blood Potassium (3.4-4.5) mmol/L Crossmatch 08/02/16 08/02/16 08/02/16 Range/Units 09:35 10:59 12:10 WBC (3.8-10.6) k/uL RBC (4.30-5.90) m/uL Hgb (13.0-17.5) gm/dL Hct (39.0-53.0) % MCV (80.0-100.0) fL RDW (11.5-15.5) % Plt Count (150-450) k/uL Neutrophils # (1.3-7.7) k/uL Lymphocytes # (1.0-4.8) k/uL ABG pH (7.35-7.45) ABG pCO2 (35-45) mmHg ABG pO2 (83-108) mmHg ABG HCO3 (21-25) mmol/L ABG Total CO2 (19-24) mmol/L ABG O2 Saturation (94-97) % ABG Potassium (3.4-4.5) mmol/L Chloride (98-107) mmol/L BUN (9-20) mg/dL Glucose (74-99) mg/dL POC Glucose (mg/dL) 115 H 131 H 139 H (75-99) mg/dL Arterial Blood Potassium (3.4-4.5) mmol/L Crossmatch 08/02/16 08/02/16 Range/Units 13:07 14:33 WBC (3.8-10.6) k/uL RBC (4.30-5.90) m/uL Hgb (13.0-17.5) gm/dL Hct (39.0-53.0) % MCV (80.0-100.0) fL RDW (11.5-15.5) % Plt Count (150-450) k/uL Neutrophils # (1.3-7.7) k/uL Lymphocytes # (1.0-4.8) k/uL ABG pH (7.35-7.45) ABG pCO2 (35-45) mmHg ABG pO2 (83-108) mmHg ABG HCO3 (21-25) mmol/L ABG Total CO2 (19-24) mmol/L ABG O2 Saturation (94-97) % ABG Potassium (3.4-4.5) mmol/L Chloride (98-107) mmol/L BUN (9-20) mg/dL Glucose (74-99) mg/dL POC Glucose (mg/dL) 131 H 129 H (75-99) mg/dL Arterial Blood Potassium (3.4-4.5) mmol/L Crossmatch Assessment and Plan Plan: Impression: 1 status post aortic valve replacement, postoperative day # 1, patient was extubated a few hours postoperatively without any major issues.. 2 history of severe aortic stenosis and regurgitation based on previous transesophageal echocardiogram 3 chronic shortness of breath, multifactorial, however felt to be mostly related to severe aortic valve disease. 4 suspect some component of underlying COPD considering his smoking history, severity of which is not clear. 5 history of hypertension 6 history of hyperlipidemia 7 history of obesity. Recommendation: Continue present supportive care measures, incentive spirometry , bronchodilators, added Symbicort, early ambulation, and we will continue to follow. Time with Patient: Less than 30
[2016-08-02 15:37] LABS: Glucose,Whole Blood 112 mg/dL (75-99)
[2016-08-02 17:09] LABS: Glucose,Whole Blood 109 mg/dL (75-99)
[2016-08-02 18:12] LABS: Glucose,Whole Blood 128 mg/dL (75-99)
[2016-08-02 19:00] LABS: Glucose,Whole Blood 134 mg/dL (75-99)
[2016-08-02] MEDS: SYMBICORT 160-4.5 MCG INHALER INHALATION SCH (19:20)
[2016-08-02 20:00] LABS: Glucose,Whole Blood 134 mg/dL (75-99)
[2016-08-02] MEDS: SENNOSIDES-DOCUSATE SODIUM 1 EACH TAB PO SCH (21:14)
[2016-08-02 21:17] LABS: Glucose,Whole Blood 115 mg/dL (75-99)
[2016-08-02] MEDS: HYDROcodone/APAP 5-325MG 1 EACH TAB PO PRN (21:54)
[2016-08-02 21:59] LABS: Glucose,Whole Blood 117 mg/dL (75-99)
[2016-08-02 23:12] LABS: Glucose,Whole Blood 107 mg/dL (75-99)
[2016-08-03] MEDS: HEPARIN SODIUM,PORCINE 5,000 UNIT/ML 1 ML VIAL SQ SCH ×4 (00:07→23:25)
[2016-08-03] MEDS: ceFAZolin 3 GM in SODIUM CHLORIDE 0.9% 100 ML IVPB SCH (00:07)
[2016-08-03 00:08] LABS: Glucose,Whole Blood 105 mg/dL (75-99)
[2016-08-03 01:10] LABS: Glucose,Whole Blood 107 mg/dL (75-99)
[2016-08-03 02:11] LABS: Glucose,Whole Blood 106 mg/dL (75-99)
[2016-08-03 03:58] LABS: Glucose,Whole Blood 99 mg/dL (75-99)
[2016-08-03] MEDS: HYDROcodone/APAP 5-325MG 1 EACH TAB PO PRN ×3 (03:58→15:29)
[2016-08-03 05:00] LABS: Glucose,Whole Blood 105 mg/dL (75-99)
[2016-08-03 05:38] LABS: Basophils % (A) 0 %; CH 30.2; CHCM 31.2; Eosinophils % (A) 0 %; HCT 31.1 % (39.0-53.0); HDW 2.58; HGB 9.8 gm/dL (13.0-17.5); Hypochromasia Slight; Luc # (Auto) 0.28; Luc % (Auto) 2; Lymphocytes % (A) 8 %; MCH 30.8 pg (25.0-35.0); MCHC 31.5 g/dL (31.0-37.0); MCV 97.6 fL (80.0-100.0); Mean Platelet Volume 7.6; Monocytes # (A) 1.2 k/uL (0-1.0); Monocytes % (A) 10 %; Neutrophils # (A) 9.9 k/uL (1.3-7.7); Neutrophils % (A) 80 %; RBC 3.18 m/uL (4.30-5.90); RDW 15.4 % (11.5-15.5); WBC 12.4 k/uL (3.8-10.6); WBC (Perox) 12.41
[2016-08-03 05:44] LABS: INR 1.4 (<1.1); Prothrombin Time 13.4 sec (9.0-12.0)
[2016-08-03 05:50] LABS: ALT 31 U/L (21-72); AST 41 U/L (17-59); Alkaline Phosphatase 52 U/L (38-126); Anion Gap 9 mmol/L; Blood Urea Nitrogen 23 mg/dL (9-20); Calcium 8.3 mg/dL (8.4-10.2); Carbon Dioxide 27 mmol/L (22-30); Chloride 104 mmol/L (98-107); Glucose 96 mg/dL (74-99); Magnesium 2.1 mg/dL (1.6-2.3); Non-African American GFR(MDRD) >60 (>60 ml/min/1.73 sqM); Potassium 4.3 mmol/L (3.5-5.1); Sodium 140 mmol/L (137-145); Total Bilirubin 0.9 mg/dL (0.2-1.3); Total Protein 5.9 g/dL (6.3-8.2)
[2016-08-03 06:23] LABS: Glucose,Whole Blood 105 mg/dL (75-99)
[2016-08-03] MEDS ORDERED: MAGNESIUM SULFATE-D5W PMX 1 GM in DEXTROSE/WATER 1 100ML.BAG IVPB SCH (07:00)
[2016-08-03] MEDS ORDERED: ALPRAZolam 0.25 MG TAB PO PRN (07:27)
[2016-08-03] MEDS: LACTATED RINGERS 1,000 ML IV SCH (07:32)
[2016-08-03 07:56] LABS: Glucose,Whole Blood 103 mg/dL (75-99)
[2016-08-03] MEDS: IPRATROPIUM-ALBUTEROL 3 ML NEB INHALATION SCH ×4 (07:59→19:41)
[2016-08-03] MEDS: SYMBICORT 160-4.5 MCG INHALER INHALATION SCH ×2 (07:59→19:41)
[2016-08-03] MEDS: INSULIN LISPRO (humaLOG) 300 UNIT/3 ML VIAL SQ SCH ×4 (08:12→22:21)
[2016-08-03] MEDS: CLOPIDOGREL 75 MG TAB PO SCH (08:15)
[2016-08-03] MEDS: PANTOPRAZOLE 40 MG/10 ML VIAL IVP SCH (08:16)
[2016-08-03] MEDS: MUPIROCIN 2% OINT 22 GM TUBE NASAL SCH ×2 (08:16→22:21)
[2016-08-03] MEDS: ASPIRIN 325 MG TAB PO SCH (08:16)
[2016-08-03] MEDS: buPROPion 75 MG TAB PO SCH (08:17)
[2016-08-03] MEDS: FLUoxetine HCL 20 MG CAP PO SCH (08:18)
--- NOTE | 2016-08-03 08:25 | XR ---
EXAMINATION TYPE: XR chest 1V portable DATE OF EXAM: 08/03/2016 6:49 AM COMPARISON: 08/02/2016 HISTORY: Post cardiac surgery TECHNIQUE: Single frontal view of the chest is obtained. FINDINGS: Heart is markedly enlarged. Mediastinal drain not as well seen which may be technical and chest tube noted. [place] catheter has been removed.. Subsegmental changes are noted at both lung bases. Interstitial pattern noted. Postsurgical changes i dentified. Mediastinum is somewhat prominent correlate clinically. IMPRESSION: 1. Basilar atelectasis or infiltrate with mild venous congestion
[2016-08-03] MEDS ORDERED: METOPROLOL TARTRATE 12.5 MG TAB PO SCH (09:00)
--- NOTE | 2016-08-03 09:06 | PN ---
Mr. Gaston is a 65-year-old male with history of chronic atrial fibrillation who underwent aortic valve replacement. He is doing well. He is not paced anymore. He is in atrial fibrillation with a reasonably controlled ventricular response. He has no anginal symptoms. He has only chest soreness. He was mildly dyspneic earlier but better now. He is not on any pressor. He continued to be on aspirin, Lipitor 40 mg daily, Plavix 75 mg daily, metoprolol tartrate 12.5 mg twice a day. PHYSICAL EXAMINATION: Heart rate in the 70s. Blood pressure 140/60. LUNGS: A few crackles at the bases. No wheezes. HEART: Irregularly, irregular. S1, S2, no S3, with systolic murmur. No diastolic murmur. No rub. ABDOMEN: Soft, obese, nontender. EXTREMITIES: No significant edema. Lab data revealed a hemoglobin of 9.8. BUN and creatinine 23 and 0.65. IMPRESSION: 1. Status post aortic valve replacement. 2. Chronic atrial fibrillation. 3. Prior history of hypertension. RECOMMENDATION: Patient most likely will require a dose of diuretics. I would recommend once his pressure is stabilized to start him back on the CRISS inhibitor. We will follow his heart rate to make a decision regarding pacemaker. The patient would require superintendent container terminal anticoagulation because of the atrial fibrillation. Because of the fact he has not had any significant obstructive coronary artery disease then aspirin and Plavix may not be needed and that can be stopped down the road.
--- NOTE | 2016-08-03 10:33 | P.PN ---
Subjective Principal diagnosis: Severe aortic valve disorder with mixed severe aortic valve stenosis and severe aortic valve regurgitation, bicuspid aortic valve, moderate left ventricular and right ventricular dysfunction, pulmonary hypertension, chronic atrial fibrillation, clots in the left atrial appendage, hypertension, morbid obesity, chronic obstructive pulmonary disease. POD #2 aortic valve replacement using a 27 mm magna ease pericardial bioprosthesis. Intraoperative transesophageal echocardiogram and epi-epi- aortic scanning. Patient currently sitting up in the chair in no apparent distress. Denies pain. Objective - Vital Signs Vital signs: Vital Signs Temp 97.8 F 08/03/16 04:00 Pulse 67 08/03/16 08:11 Resp 18 08/03/16 06:00 BP 121/56 08/02/16 10:00 Pulse Ox 97 08/03/16 06:00 Intake & Output 08/02/16 08/03/16 08/03/16 18:59 06:59 18:59 Intake Total 1486 409.055 Output Total 1906 855 Balance -420 -445.945 Weight 141.5 kg Intake: IV 126 66 CO/CI 30 Pressure Bags 96 66 Intake, IV Titration 1360 343.055 Amount ACETAMINOPHEN IV (For NPO 750 ) 1,000 mg In Empty Bag 1 bag @ 400 mls/hr IVPB Q6HR [facility] Rx#:[id number] Insulin Regular 100 unit 43.055 In Sodium Chloride 0.9% 100 ml @ Per Protocol IV .Q0M [facility] Rx#:[id number] Lactated Ringers 1,000 ml 310 200 @ 50 mls/hr IV .Q20H [facility] Rx#:[id number] Magnesium Sulfate-D5w Pmx 100 1 gm In Dextrose/Water 1 100ml.bag @ 100 mls/hr IVPB Q1H [facility] Rx#: [id number] ceFAZolin 3 gm In Sodium 200 100 Chloride 0.9% 100 ml @ 100 mls/hr IVPB Q8HR [facility] Rx#:[id number] Output: Chest Tube Drainage 260 190 Chest Tube Mediastinal 170 110 Chest Tube Right Lateral 90 80 Chest Urine 1646 665 Other: Voiding Method Indwelling Catheter Indwelling Catheter # Bowel Movements 0 0 ABP, PAP, CO, CI - Last Documented Arterial Blood Pressure 128/57 Pulmonary Artery Pressure 36/21 Cardiac Output 8.6 Cardiac Index 4.4 - Constitutional General appearance: Present: cooperative, no acute distress - Respiratory Details: Lungs sounds diminished bilaterally. Respirations even, nonlabored. Able to achieve 750 mL on his incentive spirometry. Currently on 3 L nasal cannula. Right pleural chest tube to -20 cm wall suction, draining serosanguineous fluid , 90 mL in the last 12 hours, 150 mL the last 24 hours. Mediastinal chest tube to -20 cm wall suction, draining serosanguineous fluid, 90 mL the last 12 hours , 240 mL last 24 hours. - Cardiovascular Details: S1, S2 present. Irregular rate, rhythm, atrial fibrillation on telemetry. A/V epicardial pacemakers present, generator attached with VVI backup rate 50 bpm. Chest stable. Heart hugger in place with patient demonstrating appropriate use. Trace bilateral lower extremity edema present. Teds, SCDs present. - Gastrointestinal Gastrointestinal Comment(s): Abdomen soft, nontender, nondistended. Active bowel sounds 4 quadrants. Positive flatus, negative BM since surgery. Tolerating diet. - Genitourinary Genitourinary Comment(s): [place] present draining clear, yellow urine. Approximately 50-100 mL per hour. - Integumentary Integumentary Comment(s): Anterior chest wall incision covered with dry intact silver dressing. - Musculoskeletal Musculoskeletal: Present: gait normal - Psychiatric Psychiatric: Present: A&O x's 3, appropriate affect, intact judgment & insight - Allied health notes Allied health notes reviewed: nursing - Labs CBC & Chem 7: 08/03/16 05:00 08/03/16 05:00 Labs: Abnormal Lab Results - Last 24 Hours (Table) 08/01/16 08/01/16 08/01/16 Range/Units 08:49 09:50 10:29 WBC (3.8-10.6) k/uL RBC (4.30-5.90) m/uL Hgb (13.0-17.5) gm/dL Hct (39.0-53.0) % Neutrophils # (1.3-7.7) k/uL Monocytes # (0-1.0) k/uL PT (9.0-12.0) sec ABG pH (7.35-7.45) ABG pCO2 46 H (35-45) mmHg ABG pO2 236 H 290 H 250 H (83-108) mmHg ABG HCO3 26 H 26 H (21-25) mmol/L ABG Total CO2 27 H 28 H 28 H (19-24) mmol/L ABG O2 Saturation 99.8 H 99.9 H 99.8 H (94-97) % ABG Potassium (3.4-4.5) mmol/L BUN (9-20) mg/dL Creatinine (0.66-1.25) mg/dL POC Glucose (mg/dL) (75-99) mg/dL Calcium (8.4-10.2) mg/dL Total Protein (6.3-8.2) g/dL Albumin (3.5-5.0) g/dL Arterial Blood Potassium (3.4-4.5) mmol/L 08/01/16 08/01/16 08/01/16 Range/Units 10:56 11:34 12:02 WBC (3.8-10.6) k/uL RBC (4.30-5.90) m/uL Hgb (13.0-17.5) gm/dL Hct (39.0-53.0) % Neutrophils # (1.3-7.7) k/uL Monocytes # (0-1.0) k/uL PT (9.0-12.0) sec ABG pH 7.51 H (7.35-7.45) ABG pCO2 29 L 46 H (35-45) mmHg ABG pO2 343 H >420 H 371 H (83-108) mmHg ABG HCO3 26 H 26 H (21-25) mmol/L ABG Total CO2 27 H 27 H (19-24) mmol/L ABG O2 Saturation 99.9 H 100.0 H 99.9 H (94-97) % ABG Potassium 4.7 H (3.4-4.5) mmol/L BUN (9-20) mg/dL Creatinine (0.66-1.25) mg/dL POC Glucose (mg/dL) (75-99) mg/dL Calcium (8.4-10.2) mg/dL Total Protein (6.3-8.2) g/dL Albumin (3.5-5.0) g/dL Arterial Blood Potassium 4.7 H (3.4-4.5) mmol/L 08/02/16 08/02/16 08/02/16 Range/Units 08:19 09:35 10:59 WBC (3.8-10.6) k/uL RBC (4.30-5.90) m/uL Hgb (13.0-17.5) gm/dL Hct (39.0-53.0) % Neutrophils # (1.3-7.7) k/uL Monocytes # (0-1.0) k/uL PT (9.0-12.0) sec ABG pH (7.35-7.45) ABG pCO2 (35-45) mmHg ABG pO2 (83-108) mmHg ABG HCO3 (21-25) mmol/L ABG Total CO2 (19-24) mmol/L ABG O2 Saturation (94-97) % ABG Potassium (3.4-4.5) mmol/L BUN (9-20) mg/dL Creatinine (0.66-1.25) mg/dL POC Glucose (mg/dL) 113 H 115 H 131 H (75-99) mg/dL Calcium (8.4-10.2) mg/dL Total Protein (6.3-8.2) g/dL Albumin (3.5-5.0) g/dL Arterial Blood Potassium (3.4-4.5) mmol/L 08/02/16 08/02/16 08/02/16 Range/Units 12:10 13:07 14:33 WBC (3.8-10.6) k/uL RBC (4.30-5.90) m/uL Hgb (13.0-17.5) gm/dL Hct (39.0-53.0) % Neutrophils # (1.3-7.7) k/uL Monocytes # (0-1.0) k/uL PT (9.0-12.0) sec ABG pH (7.35-7.45) ABG pCO2 (35-45) mmHg ABG pO2 (83-108) mmHg ABG HCO3 (21-25) mmol/L ABG Total CO2 (19-24) mmol/L ABG O2 Saturation (94-97) % ABG Potassium (3.4-4.5) mmol/L BUN (9-20) mg/dL Creatinine (0.66-1.25) mg/dL POC Glucose (mg/dL) 139 H 131 H 129 H (75-99) mg/dL Calcium (8.4-10.2) mg/dL Total Protein (6.3-8.2) g/dL Albumin (3.5-5.0) g/dL Arterial Blood Potassium (3.4-4.5) mmol/L 08/02/16 08/02/16 08/02/16 Range/Units 15:36 17:06 18:10 WBC (3.8-10.6) k/uL RBC (4.30-5.90) m/uL Hgb (13.0-17.5) gm/dL Hct (39.0-53.0) % Neutrophils # (1.3-7.7) k/uL Monocytes # (0-1.0) k/uL PT (9.0-12.0) sec ABG pH (7.35-7.45) ABG pCO2 (35-45) mmHg ABG pO2 (83-108) mmHg ABG HCO3 (21-25) mmol/L ABG Total CO2 (19-24) mmol/L ABG O2 Saturation (94-97) % ABG Potassium (3.4-4.5) mmol/L BUN (9-20) mg/dL Creatinine (0.66-1.25) mg/dL POC Glucose (mg/dL) 112 H 109 H 128 H (75-99) mg/dL Calcium (8.4-10.2) mg/dL Total Protein (6.3-8.2) g/dL Albumin (3.5-5.0) g/dL Arterial Blood Potassium (3.4-4.5) mmol/L 08/02/16 08/02/16 08/02/16 Range/Units 18:59 19:58 21:10 WBC (3.8-10.6) k/uL RBC (4.30-5.90) m/uL Hgb (13.0-17.5) gm/dL Hct (39.0-53.0) % Neutrophils # (1.3-7.7) k/uL Monocytes # (0-1.0) k/uL PT (9.0-12.0) sec ABG pH (7.35-7.45) ABG pCO2 (35-45) mmHg ABG pO2 (83-108) mmHg ABG HCO3 (21-25) mmol/L ABG Total CO2 (19-24) mmol/L ABG O2 Saturation (94-97) % ABG Potassium (3.4-4.5) mmol/L BUN (9-20) mg/dL Creatinine (0.66-1.25) mg/dL POC Glucose (mg/dL) 134 H 134 H 115 H (75-99) mg/dL Calcium (8.4-10.2) mg/dL Total Protein (6.3-8.2) g/dL Albumin (3.5-5.0) g/dL Arterial Blood Potassium (3.4-4.5) mmol/L 08/02/16 08/02/16 08/03/16 Range/Units 21:57 23:09 00:05 WBC (3.8-10.6) k/uL RBC (4.30-5.90) m/uL Hgb (13.0-17.5) gm/dL Hct (39.0-53.0) % Neutrophils # (1.3-7.7) k/uL Monocytes # (0-1.0) k/uL PT (9.0-12.0) sec ABG pH (7.35-7.45) ABG pCO2 (35-45) mmHg ABG pO2 (83-108) mmHg ABG HCO3 (21-25) mmol/L ABG Total CO2 (19-24) mmol/L ABG O2 Saturation (94-97) % ABG Potassium (3.4-4.5) mmol/L BUN (9-20) mg/dL Creatinine (0.66-1.25) mg/dL POC Glucose (mg/dL) 117 H 107 H 105 H (75-99) mg/dL Calcium (8.4-10.2) mg/dL Total Protein (6.3-8.2) g/dL Albumin (3.5-5.0) g/dL Arterial Blood Potassium (3.4-4.5) mmol/L 08/03/16 08/03/16 08/03/16 Range/Units 01:07 02:09 04:56 WBC (3.8-10.6) k/uL RBC (4.30-5.90) m/uL Hgb (13.0-17.5) gm/dL Hct (39.0-53.0) % Neutrophils # (1.3-7.7) k/uL Monocytes # (0-1.0) k/uL PT (9.0-12.0) sec ABG pH (7.35-7.45) ABG pCO2 (35-45) mmHg ABG pO2 (83-108) mmHg ABG HCO3 (21-25) mmol/L ABG Total CO2 (19-24) mmol/L ABG O2 Saturation (94-97) % ABG Potassium (3.4-4.5) mmol/L BUN (9-20) mg/dL Creatinine (0.66-1.25) mg/dL POC Glucose (mg/dL) 107 H 106 H 105 H (75-99) mg/dL Calcium (8.4-10.2) mg/dL Total Protein (6.3-8.2) g/dL Albumin (3.5-5.0) g/dL Arterial Blood Potassium (3.4-4.5) mmol/L 08/03/16 08/03/16 08/03/16 Range/Units 05:00 05:00 05:00 WBC 12.4 H (3.8-10.6) k/uL RBC 3.18 L (4.30-5.90) m/uL Hgb 9.8 L (13.0-17.5) gm/dL Hct 31.1 L (39.0-53.0) % Neutrophils # 9.9 H (1.3-7.7) k/uL Monocytes # 1.2 H (0-1.0) k/uL PT 13.4 H (9.0-12.0) sec ABG pH (7.35-7.45) ABG pCO2 (35-45) mmHg ABG pO2 (83-108) mmHg ABG HCO3 (21-25) mmol/L ABG Total CO2 (19-24) mmol/L ABG O2 Saturation (94-97) % ABG Potassium (3.4-4.5) mmol/L BUN 23 H (9-20) mg/dL Creatinine 0.65 L (0.66-1.25) mg/dL POC Glucose (mg/dL) (75-99) mg/dL Calcium 8.3 L (8.4-10.2) mg/dL Total Protein 5.9 L (6.3-8.2) g/dL Albumin 3.4 L (3.5-5.0) g/dL Arterial Blood Potassium (3.4-4.5) mmol/L 08/03/16 08/03/16 Range/Units 06:03 07:54 WBC (3.8-10.6) k/uL RBC (4.30-5.90) m/uL Hgb (13.0-17.5) gm/dL Hct (39.0-53.0) % Neutrophils # (1.3-7.7) k/uL Monocytes # (0-1.0) k/uL PT (9.0-12.0) sec ABG pH (7.35-7.45) ABG pCO2 (35-45) mmHg ABG pO2 (83-108) mmHg ABG HCO3 (21-25) mmol/L ABG Total CO2 (19-24) mmol/L ABG O2 Saturation (94-97) % ABG Potassium (3.4-4.5) mmol/L BUN (9-20) mg/dL Creatinine (0.66-1.25) mg/dL POC Glucose (mg/dL) 105 H 103 H (75-99) mg/dL Calcium (8.4-10.2) mg/dL Total Protein (6.3-8.2) g/dL Albumin (3.5-5.0) g/dL Arterial Blood Potassium (3.4-4.5) mmol/L - Imaging and Cardiology Chest x-ray: report reviewed, image reviewed Assessment and Plan (1) Severe aortic valve stenosis Status: Acute (2) Severe aortic valve regurgitation Status: Acute (3) Bicuspid aortic valve Status: Acute (4) Pulmonary hypertension Status: Acute (5) Moderate left ventricular systolic dysfunction Status: Acute (6) Moderate right ventricular systolic dysfunction Status: Acute (7) Chronic atrial fibrillation Status: Acute (8) Hypertension Status: Acute (9) Morbid obesity Status: Acute (10) COPD (chronic obstructive pulmonary disease) Status: Acute Plan: 1. Continue aspirin, statin, Plavix, heparin SQ. Restart Lopressor 12.5 mg by mouth twice a day. 2. Keep pacemaker generator attached to epicardial pacemaker wires VVI backup rate 50 bpm 3. Discussed the possibility of need for permanent pacemaker with cardiology, await their recommendations. 4. DC [place]. DC chest tubes. 5. Wean O2 as tolerated. Continue to encourage incentive spirometry use. 6. Increase activity, out of bed in chair all day, ambulate in room. PT to follow 7. GI/DVT prophylaxis. 8. Inhaled corticosteroids started per pulmonology. 9. Transfer out of ICU later today. Time with Patient: Greater than 30
--- NOTE | 2016-08-03 11:02 | CDI ---
In responding to this query, please exercise your independent professional judgment. The [facility] Coding Staff and Clinical Documentation Specialists appreciate your assistance in clarifying documentation, maintaining compliance with coding guidelines, accurately documenting patients condition and capturing severity of illness. The fact that a question is asked does not imply that any particular answer is desired or expected. Communication forms are a method of clarifying documentation and are not made part of the Legal Health Record. Thank you in advance for your clarification. Last Revision, April 2015 Jasscain Phillips [address] [facility] [place] [address] Documentation Clarification Form Date: 08/03/2016 10:52:00 AM From: Susanne Jeter Admit Date: 08/01/2016 5:43:00 AM Patient Name: Neo Gaston Visit Number: [id number] Dr. Mely Wick History of Cardiomyopathy is documented in the progress note on 08/02. History/Risk Factors: Atrial Fibrillation Aortic Valve stenosis and regurgitation COPD Pulmonary Hypertension Morbid Obesity Clinical indicators: History of Cardiomyopathy documented in your progress note on 08/02 Echocardiogram: none available Treatment: Consults: Cardiology Home meds include: Apresoline, Lasix, Cardura, Tenormin, Zestril In your professional opinion; can you please clarify the type of cardiomyopathy and underlying cause if known? Congenital X Dilated Hypertrophic Ischemic Secondary, please indicate underlying cause if known Unable to determine Other, please specify Please document in your progress notes and discharge summary in order to capture severity of illness and risk of mortality. Include clinical findings that support your diagnosis. FYI: Press F11 to launch patient chart Place X here if this finding has no clinical significance, is not applicable or if you are not able to provide any additional documentation. BERNARDINO
[2016-08-03 12:25] LABS: Glucose,Whole Blood 106 mg/dL (75-99)
[2016-08-03] MEDS: MULTIVITAMINS, THERA 1 EACH TAB PO SCH (14:22)
[2016-08-03] MEDS: ATORVASTATIN 40 MG TAB PO SCH (14:22)
[2016-08-03] MEDS: VITAMIN E (DL,TOCOPHERYL ACET) 400 UNIT CAP PO SCH (14:22)
[2016-08-03] MEDS: CYANOCOBALAMIN 500 MCG TAB PO SCH (14:23)
--- NOTE | 2016-08-03 14:57 | P.PN ---
Subjective Principal diagnosis: Status post aortic valve replacement using 27 mm magna ease pericardial bioprosthesis. Postoperative day #1. Patient is status post aortic valve replacement for severe aortic valve disorder with mixed aortic valve regurgitation and stenosis. Patient had a bicuspid aortic valve, moderate left ventricular and right ventricular dysfunction, pulmonary hypertension, and chronic atrial fibrillation he also had clots in the left atrial appendage. Patient has underlying COPD, morbid obesity, and his postoperative course was relatively uneventful. Patient was extubated last night without any major issues. Doing well today, comfortable, sitting in bed, in no distress. Reevaluated today on 08/03/2016, patient is doing relatively well. Relatively uneventful postoperative course so far. Objective - Vital Signs Vital signs: Vital Signs Temp 98.1 F 08/03/16 12:00 Pulse 69 08/03/16 14:00 Resp 18 08/03/16 14:00 BP 136/80 08/03/16 14:00 Pulse Ox 96 08/03/16 14:00 Intake & Output 08/02/16 08/03/16 08/03/16 18:59 06:59 18:59 Intake Total 1486 409.055 515 Output Total 1906 855 505 Balance -420 -445.945 10 Weight 141.5 kg Intake: IV 126 66 15 CO/CI 30 Pressure Bags 96 66 15 Intake, IV Titration 1360 343.055 0 Amount ACETAMINOPHEN IV (For NPO 750 ) 1,000 mg In Empty Bag 1 bag @ 400 mls/hr IVPB Q6HR [facility] Rx#:[id number] Insulin Regular 100 unit 43.055 In Sodium Chloride 0.9% 100 ml @ Per Protocol IV .Q0M [facility] Rx#:[id number] Lactated Ringers 1,000 ml 310 200 0 @ 50 mls/hr IV .Q20H [facility] Rx#:[id number] Magnesium Sulfate-D5w Pmx 100 1 gm In Dextrose/Water 1 100ml.bag @ 100 mls/hr IVPB Q1H [facility] Rx#: [id number] ceFAZolin 3 gm In Sodium 200 100 Chloride 0.9% 100 ml @ 100 mls/hr IVPB Q8HR [facility] Rx#:[id number] Oral 500 Output: Chest Tube Drainage 260 190 60 Chest Tube Mediastinal 170 110 30 Chest Tube Right Lateral 90 80 30 Chest Urine 1646 665 445 Other: Voiding Method Indwelling Catheter Indwelling Catheter # Bowel Movements 0 0 0 ABP, PAP, CO, CI - Last Documented Arterial Blood Pressure 119/58 Pulmonary Artery Pressure 36/21 Cardiac Output 8.6 Cardiac Index 4.4 - Exam Physical Exam: Revealed a 65-year-old obese in no distress. HEENT:[Neck is supple.] [No neck masses.] [No thyromegaly.] [No JVD.] Chest: [Diminished breath sounds at the bases, no rhonchi no wheezes.] Cardiac Exam: [Normal S1 and S2, no S3 gallop, 2/6 systolic murmur over the precordium Abdomen: [Soft, nontender, no megaly, no rebound, no guarding, normal bowel sounds.] Extremities: [No clubbing, no edema, no cyanosis.] Neurological Exam: [No focal neurologic deficit.] - Labs CBC & Chem 7: 08/03/16 05:00 08/03/16 05:00 Labs: Abnormal Lab Results - Last 24 Hours (Table) 08/02/16 08/02/16 08/02/16 Range/Units 15:36 17:06 18:10 WBC (3.8-10.6) k/uL RBC (4.30-5.90) m/uL Hgb (13.0-17.5) gm/dL Hct (39.0-53.0) % Neutrophils # (1.3-7.7) k/uL Monocytes # (0-1.0) k/uL PT (9.0-12.0) sec BUN (9-20) mg/dL Creatinine (0.66-1.25) mg/dL POC Glucose (mg/dL) 112 H 109 H 128 H (75-99) mg/dL Calcium (8.4-10.2) mg/dL Total Protein (6.3-8.2) g/dL Albumin (3.5-5.0) g/dL 08/02/16 08/02/16 08/02/16 Range/Units 18:59 19:58 21:10 WBC (3.8-10.6) k/uL RBC (4.30-5.90) m/uL Hgb (13.0-17.5) gm/dL Hct (39.0-53.0) % Neutrophils # (1.3-7.7) k/uL Monocytes # (0-1.0) k/uL PT (9.0-12.0) sec BUN (9-20) mg/dL Creatinine (0.66-1.25) mg/dL POC Glucose (mg/dL) 134 H 134 H 115 H (75-99) mg/dL Calcium (8.4-10.2) mg/dL Total Protein (6.3-8.2) g/dL Albumin (3.5-5.0) g/dL 08/02/16 08/02/16 08/03/16 Range/Units 21:57 23:09 00:05 WBC (3.8-10.6) k/uL RBC (4.30-5.90) m/uL Hgb (13.0-17.5) gm/dL Hct (39.0-53.0) % Neutrophils # (1.3-7.7) k/uL Monocytes # (0-1.0) k/uL PT (9.0-12.0) sec BUN (9-20) mg/dL Creatinine (0.66-1.25) mg/dL POC Glucose (mg/dL) 117 H 107 H 105 H (75-99) mg/dL Calcium (8.4-10.2) mg/dL Total Protein (6.3-8.2) g/dL Albumin (3.5-5.0) g/dL 08/03/16 08/03/16 08/03/16 Range/Units 01:07 02:09 04:56 WBC (3.8-10.6) k/uL RBC (4.30-5.90) m/uL Hgb (13.0-17.5) gm/dL Hct (39.0-53.0) % Neutrophils # (1.3-7.7) k/uL Monocytes # (0-1.0) k/uL PT (9.0-12.0) sec BUN (9-20) mg/dL Creatinine (0.66-1.25) mg/dL POC Glucose (mg/dL) 107 H 106 H 105 H (75-99) mg/dL Calcium (8.4-10.2) mg/dL Total Protein (6.3-8.2) g/dL Albumin (3.5-5.0) g/dL 08/03/16 08/03/16 08/03/16 Range/Units 05:00 05:00 05:00 WBC 12.4 H (3.8-10.6) k/uL RBC 3.18 L (4.30-5.90) m/uL Hgb 9.8 L (13.0-17.5) gm/dL Hct 31.1 L (39.0-53.0) % Neutrophils # 9.9 H (1.3-7.7) k/uL Monocytes # 1.2 H (0-1.0) k/uL PT 13.4 H (9.0-12.0) sec BUN 23 H (9-20) mg/dL Creatinine 0.65 L (0.66-1.25) mg/dL POC Glucose (mg/dL) (75-99) mg/dL Calcium 8.3 L (8.4-10.2) mg/dL Total Protein 5.9 L (6.3-8.2) g/dL Albumin 3.4 L (3.5-5.0) g/dL 08/03/16 08/03/16 08/03/16 Range/Units 06:03 07:54 12:23 WBC (3.8-10.6) k/uL RBC (4.30-5.90) m/uL Hgb (13.0-17.5) gm/dL Hct (39.0-53.0) % Neutrophils # (1.3-7.7) k/uL Monocytes # (0-1.0) k/uL PT (9.0-12.0) sec BUN (9-20) mg/dL Creatinine (0.66-1.25) mg/dL POC Glucose (mg/dL) 105 H 103 H 106 H (75-99) mg/dL Calcium (8.4-10.2) mg/dL Total Protein (6.3-8.2) g/dL Albumin (3.5-5.0) g/dL Assessment and Plan Plan: Impression: 1 status post aortic valve replacement, postoperative day # 2 patient was extubated a few hours postoperatively without any major issues.. 2 history of severe aortic stenosis and regurgitation based on previous transesophageal echocardiogram 3 chronic shortness of breath, multifactorial, however felt to be mostly related to severe aortic valve disease. 4 suspect some component of underlying COPD considering his smoking history, severity of which is not clear. 5 history of hypertension 6 history of hyperlipidemia 7 history of obesity. Recommendation: Continue present supportive care measures, incentive spirometry , bronchodilators, added Symbicort, early ambulation, and we will continue to follow. Time with Patient: Less than 30
[2016-08-03] MEDS ORDERED: FUROSEMIDE 10 MG/ML 2 ML VIAL IV ONE (16:30)
[2016-08-03 17:18] LABS: Glucose,Whole Blood 129 mg/dL (75-99)
[2016-08-03] MEDS: CARVEDILOL 3.125 MG TAB PO SCH (17:55)
[2016-08-03] MEDS ORDERED: WARFARIN 10 MG TAB PO ONE (18:00)
[2016-08-03 20:41] LABS: Glucose,Whole Blood 138 mg/dL (75-99)
[2016-08-03] MEDS: SENNOSIDES-DOCUSATE SODIUM 1 EACH TAB PO SCH (22:21)
[2016-08-04 01:52] LABS: Glucose,Whole Blood 122 mg/dL (75-99)
[2016-08-04 05:34] LABS: Glucose,Whole Blood 122 mg/dL (75-99)
[2016-08-04] MEDS: INSULIN LISPRO (humaLOG) 300 UNIT/3 ML VIAL SQ SCH ×4 (06:42→22:04)
[2016-08-04] MEDS: PANTOPRAZOLE 40 MG TABLET PO SCH (06:45)
[2016-08-04] MEDS: CARVEDILOL 3.125 MG TAB PO SCH ×2 (06:45→17:07)
[2016-08-04 07:16] LABS: CH 30.4; CHCM 31.3; HCT 32.9 % (39.0-53.0); HDW 2.61; HGB 10.3 gm/dL (13.0-17.5); Hypochromasia Slight; MCH 30.6 pg (25.0-35.0); MCHC 31.2 g/dL (31.0-37.0); Macrocytosis Slight; Mean Platelet Volume 6.9; RBC 3.36 m/uL (4.30-5.90); RDW 15.5 % (11.5-15.5); WBC 10.8 k/uL (3.8-10.6)
[2016-08-04 07:17] LABS: INR 1.2 (<1.1); Prothrombin Time 11.7 sec (9.0-12.0)
--- NOTE | 2016-08-04 08:16 | XR ---
EXAMINATION TYPE: XR chest 2V DATE OF EXAM: 08/04/2016 6:30 AM COMPARISON: Prior chest x-ray one August 2016 HISTORY: Postop cardiac surgery TECHNIQUE: Frontal and lateral views of the chest are obtained. FINDINGS: Minimal patchy density present at the posterior lung bases. The heart is markedly enlarged . Central vascularity and interstitium are increased. No pneumothorax or sizable effusion. There are overlying cardiac leads and the patient is post median sternotomy. Right-sided chest tube has been re moved. Postop change noted to the left humerus. IMPRESSION: There may be a component of pulmonary venous hypertension, congestive failure.
--- NOTE | 2016-08-04 08:44 | P.PN ---
Subjective Principal diagnosis: Severe aortic valve disorder with mixed severe aortic valve stenosis and severe aortic valve regurgitation, bicuspid aortic valve, moderate left ventricular and right ventricular dysfunction, pulmonary hypertension, chronic atrial fibrillation, clots in the left atrial appendage, hypertension, morbid obesity, chronic obstructive pulmonary disease. POD #3 aortic valve replacement using a 27 mm magna ease pericardial bioprosthesis. Intraoperative transesophageal echocardiogram and epi-epi- aortic scanning. Patient currently sitting up in the chair in no apparent distress. Denies pain. States he slept better last night. Objective - Vital Signs Vital signs: Vital Signs Temp 99.4 F 08/03/16 20:00 Pulse 97 08/04/16 04:00 Resp 20 08/04/16 04:00 BP 137/89 08/04/16 04:00 Pulse Ox 93 L 08/04/16 04:00 Intake & Output 08/03/16 08/04/16 08/04/16 18:59 06:59 18:59 Intake Total 815 120 Output Total 905 400 Balance -90 -400 120 Weight 139.6 kg Intake: IV 15 Pressure Bags 15 Intake, IV Titration 0 Amount Lactated Ringers 1,000 ml 0 @ 50 mls/hr IV .Q20H [facility] Rx#:[id number] Oral 800 120 Output: Chest Tube Drainage 60 Chest Tube Mediastinal 30 Chest Tube Right Lateral 30 Chest Urine 845 400 Other: Voiding Method Indwelling Catheter # Voids 3 1 # Bowel Movements 0 1 1 ABP, PAP, CO, CI - Last Documented Arterial Blood Pressure 119/58 Pulmonary Artery Pressure 36/21 Cardiac Output 8.6 Cardiac Index 4.4 - Constitutional General appearance: Present: cooperative, no acute distress - Respiratory Details: Lungs sounds diminished, fine crackles bilateral bases. Respirations even, nonlabored. Currently on 3 L nasal cannula. Able to achieve 1000 mL on incentive spirometry. - Cardiovascular Details: S1, S2 present. Irregular rate, rhythm, atrial fibrillation on telemetry. A/V epicardial pacer wires attached to generator with VVI backup rate 50 bpm. Chest stable. Heart hugger in place with patient demonstrating appropriate use. Trace bilateral lower extremity edema present. Teds, SCDs present. - Gastrointestinal Gastrointestinal Comment(s): Abdomen soft, nontender, nondistended. Active bowel sounds 4 quadrants. Positive bowel movement this morning. Tolerating diet. - Genitourinary Genitourinary Comment(s): Voiding clear, yellow urine per urinal. - Integumentary Integumentary Comment(s): Anterior chest incision covered with dry, intact silver dressing. - Musculoskeletal Musculoskeletal: Present: gait normal - Psychiatric Psychiatric: Present: A&O x's 3, appropriate affect, intact judgment & insight - Allied health notes Allied health notes reviewed: nursing - Labs CBC & Chem 7: 08/04/16 06:44 08/03/16 05:00 Labs: Abnormal Lab Results - Last 24 Hours (Table) 08/03/16 08/03/16 08/03/16 Range/Units 12:23 17:17 20:39 WBC (3.8-10.6) k/uL RBC (4.30-5.90) m/uL Hgb (13.0-17.5) gm/dL Hct (39.0-53.0) % POC Glucose (mg/dL) 106 H 129 H 138 H (75-99) mg/dL 08/04/16 08/04/16 08/04/16 Range/Units 01:49 05:32 06:44 WBC 10.8 H (3.8-10.6) k/uL RBC 3.36 L (4.30-5.90) m/uL Hgb 10.3 L (13.0-17.5) gm/dL Hct 32.9 L (39.0-53.0) % POC Glucose (mg/dL) 122 H 122 H (75-99) mg/dL - Imaging and Cardiology Chest x-ray: report reviewed, image reviewed Assessment and Plan (1) Severe aortic valve stenosis Status: Acute (2) Severe aortic valve regurgitation Status: Acute (3) Bicuspid aortic valve Status: Acute (4) Pulmonary hypertension Status: Acute (5) Moderate left ventricular systolic dysfunction Status: Acute (6) Moderate right ventricular systolic dysfunction Status: Acute (7) Chronic atrial fibrillation Status: Acute (8) Hypertension Status: Acute (9) Morbid obesity Status: Acute (10) COPD (chronic obstructive pulmonary disease) Status: Acute Plan: 1. Continue aspirin, statin, Plavix, heparin SQ, Lopressor. 2. Keep pacemaker generator attached to epicardial pacemaker wires VVI backup rate 50 bpm 3. Coumadin 15 mg tonight. PT/INR in a.m. 4. Wean O2 as tolerated. Continue to encourage incentive spirometry use. 5. Increase activity, out of bed in chair all day, ambulate in room. PT to follow 6. GI/DVT prophylaxis. 7. Inhaled corticosteroids started per pulmonology. 8. Anticipate discharge soon, home versus rehab dependent on physical therapy evaluation. Time with Patient: Greater than 30
[2016-08-04] MEDS: SYMBICORT 160-4.5 MCG INHALER INHALATION SCH ×2 (09:20→20:39)
[2016-08-04] MEDS: IPRATROPIUM-ALBUTEROL 3 ML NEB INHALATION SCH ×4 (09:20→20:40)
[2016-08-04] MEDS: FLUoxetine HCL 20 MG CAP PO SCH (09:39)
[2016-08-04] MEDS: CLOPIDOGREL 75 MG TAB PO SCH (09:39)
[2016-08-04] MEDS: MUPIROCIN 2% OINT 22 GM TUBE NASAL SCH ×2 (09:39→20:54)
[2016-08-04] MEDS: buPROPion 75 MG TAB PO SCH (09:39)
[2016-08-04] MEDS: ATORVASTATIN 40 MG TAB PO SCH (09:39)
[2016-08-04] MEDS: ASPIRIN 325 MG TAB PO SCH (09:39)
[2016-08-04] MEDS: HEPARIN SODIUM,PORCINE 5,000 UNIT/ML 1 ML VIAL SQ SCH ×3 (09:39→23:27)
[2016-08-04 12:13] LABS: Glucose,Whole Blood 106 mg/dL (75-99)
[2016-08-04] MEDS: CYANOCOBALAMIN 500 MCG TAB PO SCH (12:18)
[2016-08-04] MEDS: VITAMIN E (DL,TOCOPHERYL ACET) 400 UNIT CAP PO SCH (12:18)
[2016-08-04] MEDS: MULTIVITAMINS, THERA 1 EACH TAB PO SCH (12:18)
--- NOTE | 2016-08-04 12:33 | P.PN ---
Subjective Principal diagnosis: Status post aortic valve replacement using 27 mm magna ease pericardial bioprosthesis. Postoperative day #1. Patient is status post aortic valve replacement for severe aortic valve disorder with mixed aortic valve regurgitation and stenosis. Patient had a bicuspid aortic valve, moderate left ventricular and right ventricular dysfunction, pulmonary hypertension, and chronic atrial fibrillation he also had clots in the left atrial appendage. Patient has underlying COPD, morbid obesity, and his postoperative course was relatively uneventful. Patient was extubated last night without any major issues. Doing well today, comfortable, sitting in bed, in no distress. Reevaluated today on 08/03/2016, patient is doing relatively well. Relatively uneventful postoperative course so far. Reevaluated today on 08/04/2016, patient continues to do well. No specific complaints except for the vague aches and pains. Patient is status post aortic valve replacement for severe aortic valve disorder with mixed aortic valve regurgitation and stenosis. Patient had a bicuspid aortic valve. Patient is already ambulating in the hallway, and he is doing quite well with incentive spirometry. Objective - Vital Signs Vital signs: Vital Signs Temp 96 F L 08/04/16 10:05 Pulse 64 08/04/16 12:25 Resp 18 08/04/16 10:05 BP 131/77 08/04/16 10:05 Pulse Ox 93 L 08/04/16 10:05 Intake & Output 08/03/16 08/04/16 08/04/16 18:59 06:59 18:59 Intake Total 815 120 Output Total 905 400 Balance -90 -400 120 Weight 139.6 kg Intake: IV 15 Pressure Bags 15 Intake, IV Titration 0 Amount Lactated Ringers 1,000 ml 0 @ 50 mls/hr IV .Q20H [facility] Rx#:[id number] Oral 800 120 Output: Chest Tube Drainage 60 Chest Tube Mediastinal 30 Chest Tube Right Lateral 30 Chest Urine 845 400 Other: Voiding Method Indwelling Catheter Toilet # Voids 3 1 # Bowel Movements 0 1 1 ABP, PAP, CO, CI - Last Documented Arterial Blood Pressure 119/58 Pulmonary Artery Pressure 36/21 Cardiac Output 8.6 Cardiac Index 4.4 - Exam Physical Exam: Revealed a 65-year-old obese in no distress. HEENT:[Neck is supple.] [No neck masses.] [No thyromegaly.] [No JVD.] Chest: [Diminished breath sounds at the bases, no rhonchi no wheezes.] Cardiac Exam: [Normal S1 and S2, no S3 gallop, 2/6 systolic murmur over the precordium Abdomen: [Soft, nontender, no megaly, no rebound, no guarding, normal bowel sounds.] Extremities: [No clubbing, no edema, no cyanosis.] Neurological Exam: [No focal neurologic deficit.] - Labs CBC & Chem 7: 08/04/16 06:44 08/03/16 05:00 Labs: Abnormal Lab Results - Last 24 Hours (Table) 08/03/16 08/03/16 08/04/16 Range/Units 17:17 20:39 01:49 WBC (3.8-10.6) k/uL RBC (4.30-5.90) m/uL Hgb (13.0-17.5) gm/dL Hct (39.0-53.0) % POC Glucose (mg/dL) 129 H 138 H 122 H (75-99) mg/dL 08/04/16 08/04/16 08/04/16 Range/Units 05:32 06:44 12:07 WBC 10.8 H (3.8-10.6) k/uL RBC 3.36 L (4.30-5.90) m/uL Hgb 10.3 L (13.0-17.5) gm/dL Hct 32.9 L (39.0-53.0) % POC Glucose (mg/dL) 122 H 106 H (75-99) mg/dL Assessment and Plan Plan: Impression: 1 status post aortic valve replacement, postoperative day # 3 patient was extubated a few hours postoperatively without any major issues.. 2 history of severe aortic stenosis and regurgitation based on previous transesophageal echocardiogram 3 chronic shortness of breath, multifactorial, however felt to be mostly related to severe aortic valve disease. 4 suspect some component of underlying COPD considering his smoking history, severity of which is not clear. 5 history of hypertension 6 history of hyperlipidemia 7 history of obesity. Recommendation: Continue present supportive care measures, incentive spirometry , bronchodilators, Symbicort, continue ambulation, discharge planning in the next 24-48 hours likely. Time with Patient: Less than 30
--- NOTE | 2016-08-04 14:54 | P.PN ---
Subjective Principal diagnosis: Status post aortic valve replacement This is a 65-year-old gentleman who is status post aortic valve replacement. He has history of hypertension as well as chronic persistent atrial fibrillation, continues to be in atrial fibrillation with a heart rate stable today. Denies any chest pain, breathing has been stable overall. He has received a dose of Coumadin today. Continues to be on aspirin and Plavix. Objective - Vital Signs Vital signs: Vital Signs Temp 98 F 08/04/16 12:18 Pulse 64 08/04/16 12:25 Resp 20 08/04/16 12:18 BP 114/85 08/04/16 12:18 Pulse Ox 98 08/04/16 12:18 Intake & Output 08/03/16 08/04/16 08/04/16 18:59 06:59 18:59 Intake Total 815 240 Output Total 905 400 300 Balance -90 -400 -60 Weight 139.6 kg Intake: IV 15 Pressure Bags 15 Intake, IV Titration 0 Amount Lactated Ringers 1,000 ml 0 @ 50 mls/hr IV .Q20H [facility] Rx#:[id number] Oral 800 240 Output: Chest Tube Drainage 60 Chest Tube Mediastinal 30 Chest Tube Right Lateral 30 Chest Urine 845 400 300 Other: Voiding Method Indwelling Catheter Toilet # Voids 3 1 # Bowel Movements 0 1 1 ABP, PAP, CO, CI - Last Documented Arterial Blood Pressure 119/58 Pulmonary Artery Pressure 36/21 Cardiac Output 8.6 Cardiac Index 4.4 - Exam PHYSICAL EXAMINATION: HEENT: Head is atraumatic, normocephalic. Pupils equal, round. Neck is supple. There is no elevated jugular venous pressure. HEART EXAMINATION: Heart S1 and S2 irregularly irregular systolic murmur is heard CHEST EXAMINATION: Lungs are clear with mild diminished air entry to the bases. ABDOMEN: Soft, nontender. Bowel sounds are heard. No organomegaly noted. EXTREMITIES: 2+ peripheral pulses with trace evidence of peripheral edema and no calf tenderness noted. NEUROLOGIC patient is awake, alert and oriented -3. . - Labs CBC & Chem 7: 08/04/16 06:44 08/03/16 05:00 Labs: Abnormal Lab Results - Last 24 Hours (Table) 08/03/16 08/03/16 08/04/16 Range/Units 17:17 20:39 01:49 WBC (3.8-10.6) k/uL RBC (4.30-5.90) m/uL Hgb (13.0-17.5) gm/dL Hct (39.0-53.0) % POC Glucose (mg/dL) 129 H 138 H 122 H (75-99) mg/dL 08/04/16 08/04/16 08/04/16 Range/Units 05:32 06:44 12:07 WBC 10.8 H (3.8-10.6) k/uL RBC 3.36 L (4.30-5.90) m/uL Hgb 10.3 L (13.0-17.5) gm/dL Hct 32.9 L (39.0-53.0) % POC Glucose (mg/dL) 122 H 106 H (75-99) mg/dL Assessment and Plan (1) S/P AVR (aortic valve replacement) Status: Acute (2) Dilated cardiomyopathy Status: Acute (3) COPD (chronic obstructive pulmonary disease) Status: Acute (4) Chronic atrial fibrillation Status: Acute (5) Hypertension Status: Acute Plan: From cardiology's perspective, we will recommend that the aspirin and Plavix be discontinued, continue anticoagulation with Coumadin. DNP note has been reviewed, I agree with a documented findings and plan of care. Patient was seen and examined.
--- NOTE | 2016-08-04 16:44 | P.CONS ---
History of Present Illness - Reason for Consult Consult date: 08/04/16 Medical management Requesting physician: Frank Ram - Chief Complaint Status post aortic valve replacement - History of Present Illness This is a 65-year-old male with a known history of severe aortic valve stenosis and severe aortic valve regurgitation, pulmonary hypertension, chronic atrial fibrillation, clot in the left atrial appendage, hypertension, COPD, diabetes mellitus and morbid obesity. We were consulted for medical management. Patient 's sessile he had a aortic valve replacement in August [address] Ram. Patient was transferred out of the ICU yesterday. He is currently on the sixth floor. He has been up and ambulating in the hallway. Has noted improvement in his shortness of breath. Denies any chest pain. Denies a nausea or vomiting. He did have a bowel movement today. Denies any difficulty or burning with urination. He was started on Coumadin today. Review of Systems Please refer to HPI otherwise unremarkable Past Medical History Past Medical History: COPD, Diabetes Mellitus, Hypertension, Osteoarthritis (OA) , Sleep Apnea/CPAP/BIPAP Additional Past Medical History / Comment(s): irregular heartbeat, varicose veins, 2 herniated disk/degenerative disks, leaky heart valve, "blood clots in the heart", uses CPAP History of Any Multi-Drug Resistant Organisms: None Reported Past Surgical History: Appendectomy, Bowel Resection, Heart Catheterization, Orthopedic Surgery, Tonsillectomy Additional Past Surgical History / Comment(s): left shoulder surgery, surgery for sleep apnea, deana cataracts Past Anesthesia/Blood Transfusion Reactions: No Reported Reaction Past Psychological History: Depression Smoking Status: Former smoker Past Alcohol Use History: Occasional Additional Past Alcohol Use History / Comment(s): quit smoking 2014. smoked for 30 yrs, < 1 PPD Past Drug Use History: None Reported - Past Family History Mother Family Medical History: No Reported History Medications and Allergies Home Medications Medication Instructions Recorded Confirmed Type ALPRAZolam [Xanax] 0.25 mg PO BID PRN 10/15/14 08/01/16 History Doxazosin [Cardura] 1 mg PO QAM 10/15/14 08/01/16 History HYDROcodone/APAP 10-325MG [[place] 1 tab PO TID PRN 10/15/14 08/01/16 History 10] Lisinopril [Zestril] 2.5 mg PO QAM 10/15/14 08/01/16 History Warfarin [Coumadin] 10 mg PO SUMOTUTHFRSA 10/15/14 07/29/16 History metFORMIN HCL [Glucophage] 500 mg PO QAM 10/15/14 08/01/16 History Atenolol [Tenormin] 25 mg PO QAM 01/21/15 08/01/16 History Furosemide [Lasix] 40 mg PO BID 01/21/15 08/01/16 History buPROPion HCL [Wellbutrin SR] 150 mg PO QAM 01/21/15 08/01/16 History traMADol HCl [Ultram] 50 mg PO BID PRN 01/21/15 08/01/16 History Aspirin 325 mg PO DAILY 04/01/15 08/01/16 History Ergocalciferol (Vitamin D2) 50,000 unit PO SA 04/01/15 08/01/16 History [Drisdol] Albuterol Inhaler [Ventolin Hfa 2 puff INHALATION RT-Q4H PRN 07/13/15 08/01/16 History Inhaler] Baclofen 10 mg PO TID 07/13/15 08/01/16 History Potassium Chloride [Klor-Con 10] 10 meq PO QAM 07/13/15 08/01/16 History Docusate [Colace] 100 mg PO DAILY PRN 11/05/15 08/01/16 History Ipratropium-Albuterol Nebulize 3 ml INHALATION RT-QID PRN 11/05/15 08/01/16 History [Duoneb 0.5 mg-3 mg/3 ml Soln] Multivitamins, Thera [Multivitamin] 1 tab PO DAILY 11/05/15 08/01/16 History Warfarin Sodium 12.5 mg PO WE 11/05/15 08/02/16 History hydrALAZINE HCL [Apresoline] 25 mg PO TID 11/05/15 08/01/16 History Cyanocobalamin [Vitamin B-12] 1,000 mcg PO DAILY 07/21/16 08/01/16 History Vitamin E (Dl,Tocopheryl Acet) 400 unit PO DAILY 07/21/16 08/01/16 History [Vitamin E] Enoxaparin [Lovenox] 100 mg SQ Q12H 07/29/16 08/01/16 History FLUoxetine HCL [Sarafem] 60 mg PO DAILY 08/01/16 08/01/16 History Allergies Allergy/AdvReac Type Severity Reaction Status Date / Time No Known Allergies Allergy Verified 07/29/16 11:43 Physical Exam Vitals: Vital Signs Temp Pulse Pulse Resp BP BP BP 08/04/16 12:25 64 08/04/16 12:18 98 F 65 20 114/85 08/04/16 12:12 64 08/04/16 10:05 96 F L 63 18 131/77 08/04/16 09:33 68 08/04/16 09:20 68 08/04/16 04:00 70 20 137/89 08/04/16 00:00 97 18 125/80 08/03/16 20:00 99.4 F 72 18 127/81 08/03/16 19:53 66 08/03/16 19:42 65 08/03/16 17:00 73 120/69 Pulse Ox 08/04/16 12:25 08/04/16 12:18 98 08/04/16 12:12 08/04/16 10:05 93 L 08/04/16 09:33 08/04/16 09:20 08/04/16 04:00 93 L 08/04/16 00:00 92 L 08/03/16 20:00 97 08/03/16 19:53 08/03/16 19:42 08/03/16 17:00 Intake and Output 08/04/16 08/04/16 08/04/16 06:59 14:59 22:59 Intake Total 240 Output Total 300 Balance -60 Intake: Oral 240 Output: Urine 300 Other: Voiding Method Toilet # Voids 3 1 # Bowel Movements 1 1 Weight 139.6 kg Head normocephalic Neck supple Lungs clear to auscultation bilaterally no wheezing or crackles Heart regular rate and rhythm S1-S2, no rub or gallop. Dressing clean dry and intact Abdomen is soft nontender nondistended positive bowel sounds no hepatosplenomegaly Extremities trace edema Neuro alert and orientated to 3 Results CBC & Chem 7: 08/04/16 06:44 08/03/16 05:00 Labs: Abnormal Lab Results - Last 24 Hours (Table) 08/03/16 08/03/16 08/04/16 Range/Units 17:17 20:39 01:49 WBC (3.8-10.6) k/uL RBC (4.30-5.90) m/uL Hgb (13.0-17.5) gm/dL Hct (39.0-53.0) % POC Glucose (mg/dL) 129 H 138 H 122 H (75-99) mg/dL 08/04/16 08/04/16 08/04/16 Range/Units 05:32 06:44 12:07 WBC 10.8 H (3.8-10.6) k/uL RBC 3.36 L (4.30-5.90) m/uL Hgb 10.3 L (13.0-17.5) gm/dL Hct 32.9 L (39.0-53.0) % POC Glucose (mg/dL) 122 H 106 H (75-99) mg/dL Assessment and Plan Plan: 1. Severe aortic stenosis and aortic regurgitation. Status post aortic valve replacement postop day #3 2. Chronic persistent atrial fibrillation: Cardiology has restarted Coumadin 3. History of COPD. Stable no evidence of exacerbation 4. Hyperlipidemia 5. Morbid obesity 6. Diabetes mellitus type 2: Continue sliding scale coverage. Metformin on hold. 7. History of essential hypertension. Blood pressure stable. We will continue to follow along with you. Thank you for this consultation. Time with Patient: Greater than 30 (Greater than 50% of the total time spent in counseling and coordination of care. I performed an examination of the patient and discussed their management with the physician Clerical Investigator. I have reviewed the Physician Clerical Investigator's notes and agree with the documented findings and plan of care)
[2016-08-04 17:00] LABS: Glucose,Whole Blood 107 mg/dL (75-99)
[2016-08-04] MEDS ORDERED: WARFARIN 10 MG TAB PO ONE (18:00)
[2016-08-04] MEDS ORDERED: WARFARIN 7.5 MG TAB PO ONE (18:00)
[2016-08-04] MEDS: HYDROcodone/APAP 5-325MG 1 EACH TAB PO PRN (20:53)
[2016-08-04] MEDS: SENNOSIDES-DOCUSATE SODIUM 1 EACH TAB PO SCH (20:55)
[2016-08-04 21:05] LABS: Glucose,Whole Blood 108 mg/dL (75-99)
[2016-08-05 02:08] LABS: Glucose,Whole Blood 162 mg/dL (75-99)
[2016-08-05 05:31] LABS: Glucose,Whole Blood 98 mg/dL (75-99)
[2016-08-05 06:19] LABS: INR 1.4 (<1.1); Prothrombin Time 13.8 sec (9.0-12.0)
[2016-08-05 06:20] LABS: CH 30.3; CHCM 30.7; HCT 34.5 % (39.0-53.0); HDW 2.68; HGB 10.5 gm/dL (13.0-17.5); Hypochromasia Moderate; MCH 30.2 pg (25.0-35.0); MCHC 30.4 g/dL (31.0-37.0); MCV 99.5 fL (80.0-100.0); Macrocytosis Slight; Mean Platelet Volume 6.7; RBC 3.46 m/uL (4.30-5.90); RDW 15.4 % (11.5-15.5)
[2016-08-05 06:35] LABS: ALT 36 U/L (21-72); AST 34 U/L (17-59); Alkaline Phosphatase 72 U/L (38-126); Anion Gap 9 mmol/L; Blood Urea Nitrogen 24 mg/dL (9-20); Calcium 8.5 mg/dL (8.4-10.2); Carbon Dioxide 31 mmol/L (22-30); Chloride 102 mmol/L (98-107); Glucose 111 mg/dL (74-99); Non-African American GFR(MDRD) >60 (>60 ml/min/1.73 sqM); Sodium 142 mmol/L (137-145); Total Bilirubin 0.8 mg/dL (0.2-1.3); Total Protein 6.4 g/dL (6.3-8.2)
[2016-08-05] MEDS: INSULIN LISPRO (humaLOG) 300 UNIT/3 ML VIAL SQ SCH ×4 (06:41→22:16)
[2016-08-05] MEDS: CARVEDILOL 3.125 MG TAB PO SCH ×2 (06:53→17:41)
[2016-08-05] MEDS: PANTOPRAZOLE 40 MG TABLET PO SCH (06:53)
[2016-08-05] MEDS: SYMBICORT 160-4.5 MCG INHALER INHALATION SCH ×2 (08:37→20:03)
[2016-08-05] MEDS: IPRATROPIUM-ALBUTEROL 3 ML NEB INHALATION SCH ×4 (08:37→20:04)
[2016-08-05] MEDS: buPROPion 75 MG TAB PO SCH (09:10)
[2016-08-05] MEDS: ATORVASTATIN 40 MG TAB PO SCH (09:10)
[2016-08-05] MEDS: HEPARIN SODIUM,PORCINE 5,000 UNIT/ML 1 ML VIAL SQ SCH (09:10)
[2016-08-05] MEDS: ASPIRIN 325 MG TAB PO SCH (09:10)
[2016-08-05] MEDS: FLUoxetine HCL 20 MG CAP PO SCH (09:11)
[2016-08-05] MEDS: CLOPIDOGREL 75 MG TAB PO SCH (09:11)
--- NOTE | 2016-08-05 11:34 | P.PN ---
Subjective Principal diagnosis: Status post aortic valve replacement This is a 65-year-old gentleman who is status post aortic valve replacement. He has history of hypertension as well as chronic persistent atrial fibrillation, continues to be in atrial fibrillation with a heart rate stable today. Denies any chest pain, breathing has been stable overall. INR 1.4 today. Cardiothoracic surgery managing the Coumadin. Objective - Vital Signs Vital signs: Vital Signs Temp 96.7 F L 08/05/16 09:23 Pulse 62 08/05/16 09:23 Resp 18 08/05/16 09:23 BP 122/59 08/05/16 09:23 Pulse Ox 94 L 08/05/16 09:23 Intake & Output 08/04/16 08/05/16 08/05/16 18:59 06:59 18:59 Intake Total 360 0 200 Output Total 700 600 Balance -340 -600 200 Weight 137.1 kg Intake: IV 0 Pressure Bags 0 Oral 360 200 Output: Urine 700 600 Other: Voiding Method Toilet Toilet # Voids 1 1 2 # Bowel Movements 0 ABP, PAP, CO, CI - Last Documented Arterial Blood Pressure 119/58 Pulmonary Artery Pressure 36/21 Cardiac Output 8.6 Cardiac Index 4.4 - Exam PHYSICAL EXAMINATION: HEENT: Head is atraumatic, normocephalic. Pupils equal, round. Neck is supple. There is no elevated jugular venous pressure. HEART EXAMINATION: Heart S1 and S2 irregularly irregular systolic murmur is heard CHEST EXAMINATION: Lungs are clear with mild diminished air entry to the bases. ABDOMEN: Soft, nontender. Bowel sounds are heard. No organomegaly noted. EXTREMITIES: 2+ peripheral pulses with trace evidence of peripheral edema and no calf tenderness noted. NEUROLOGIC patient is awake, alert and oriented -3. . - Labs CBC & Chem 7: 08/05/16 05:47 08/05/16 05:47 Labs: Abnormal Lab Results - Last 24 Hours (Table) 08/04/16 08/04/16 08/04/16 Range/Units 12:07 16:55 21:03 RBC (4.30-5.90) m/uL Hgb (13.0-17.5) gm/dL Hct (39.0-53.0) % MCHC (31.0-37.0) g/dL PT (9.0-12.0) sec Carbon Dioxide (22-30) mmol/L BUN (9-20) mg/dL Creatinine (0.66-1.25) mg/dL Glucose (74-99) mg/dL POC Glucose (mg/dL) 106 H 107 H 108 H (75-99) mg/dL Albumin (3.5-5.0) g/dL 08/05/16 08/05/16 08/05/16 Range/Units 02:07 05:47 05:47 RBC 3.46 L (4.30-5.90) m/uL Hgb 10.5 L (13.0-17.5) gm/dL Hct 34.5 L (39.0-53.0) % MCHC 30.4 L (31.0-37.0) g/dL PT 13.8 H (9.0-12.0) sec Carbon Dioxide (22-30) mmol/L BUN (9-20) mg/dL Creatinine (0.66-1.25) mg/dL Glucose (74-99) mg/dL POC Glucose (mg/dL) 162 H (75-99) mg/dL Albumin (3.5-5.0) g/dL 08/05/16 Range/Units 05:47 RBC (4.30-5.90) m/uL Hgb (13.0-17.5) gm/dL Hct (39.0-53.0) % MCHC (31.0-37.0) g/dL PT (9.0-12.0) sec Carbon Dioxide 31 H (22-30) mmol/L BUN 24 H (9-20) mg/dL Creatinine 0.60 L (0.66-1.25) mg/dL Glucose 111 H (74-99) mg/dL POC Glucose (mg/dL) (75-99) mg/dL Albumin 3.4 L (3.5-5.0) g/dL Assessment and Plan (1) S/P AVR (aortic valve replacement) Status: Acute (2) Dilated cardiomyopathy Status: Acute (3) COPD (chronic obstructive pulmonary disease) Status: Acute (4) Chronic atrial fibrillation Status: Acute (5) Hypertension Status: Acute Plan: From cardiology's perspective, we will recommend that the aspirin and Plavix be discontinued, continue anticoagulation with Coumadin. If the patient was discharged, consider Lovenox until the INR is therapeutic. Appointment will be made with Dr. Galicia in the office post discharge. DNP note has been reviewed, I agree with a documented findings and plan of care. Patient was seen and examined.
[2016-08-05] MEDS: DOCUSATE 100 MG CAP PO SCH (12:02)
[2016-08-05] MEDS: LISINOPRIL 2.5 MG TAB PO SCH (12:02)
[2016-08-05] MEDS: MULTIVITAMINS, THERA 1 EACH TAB PO SCH (12:02)
--- NOTE | 2016-08-05 12:02 | P.PN ---
Subjective Status post aortic valve replacement using 27 mm magna ease pericardial bioprosthesis. Patient is status post aortic valve replacement for severe aortic valve disorder with mixed aortic valve regurgitation and stenosis. Patient had a bicuspid aortic valve, moderate left ventricular and right ventricular dysfunction, pulmonary hypertension, and chronic atrial fibrillation he also had clots in the left atrial appendage. Patient has underlying COPD, morbid obesity, and his postoperative course was relatively uneventful. Patient was extubated last night without any major issues. Doing well today, comfortable, sitting in bed, in no distress. Reevaluated today on 08/03/2016, patient is doing relatively well. Relatively uneventful postoperative course so far. Reevaluated today on 08/04/2016, patient continues to do well. No specific complaints except for the vague aches and pains. Patient is status post aortic valve replacement for severe aortic valve disorder with mixed aortic valve regurgitation and stenosis. Patient had a bicuspid aortic valve. Patient is already ambulating in the hallway, and he is doing quite well with incentive spirometry. The patient is seen again today 08/05/2016 in follow-up on the selective care unit. He is currently awake and alert in no acute distress. He is sitting up in the chair at the bedside. He denies any worsening shortness of breath, cough or congestion. He is doing very well on his incentive spirometer. He denies any significant discomfort. His pain is well controlled. He is hoping to go home today. Objective - Vital Signs Vital signs: Vital Signs Temp 96.7 F L 08/05/16 09:23 Pulse 62 08/05/16 09:23 Resp 18 08/05/16 09:23 BP 122/59 08/05/16 09:23 Pulse Ox 94 L 08/05/16 09:23 Intake & Output 08/04/16 08/05/16 08/05/16 18:59 06:59 18:59 Intake Total 360 0 200 Output Total 700 600 Balance -340 -600 200 Weight 137.1 kg Intake: IV 0 Pressure Bags 0 Oral 360 200 Output: Urine 700 600 Other: Voiding Method Toilet Toilet # Voids 1 1 2 # Bowel Movements 0 ABP, PAP, CO, CI - Last Documented Arterial Blood Pressure 119/58 Pulmonary Artery Pressure 36/21 Cardiac Output 8.6 Cardiac Index 4.4 - Exam GENERAL EXAM: Alert, active, comfortable in no apparent distress. HEAD: Normocephalic. EYES: Normal reaction of pupils, equal size. NOSE: Clear with pink turbinates. THROAT: No erythema or exudates. NECK: No masses, no JVD. CHEST: No chest wall deformity. Sternal dressing is dry and intact. LUNGS: Equal air entry with no crackles, wheeze, rhonchi or dullness. Diminished bases. CVS: S1 and S2 normal with an audible murmur, regular rhythm. ABDOMEN: No hepatosplenomegaly, normal bowel sounds, no guarding or rigidity. SPINE: No scoliosis or deformity SKIN: No rashes CENTRAL NERVOUS SYSTEM: No focal deficits, tone is normal in all 4 extremities. Extremities: There is trace peripheral edema. No clubbing, no cyanosis. Peripheral pulses are intact. - Labs CBC & Chem 7: 08/05/16 05:47 08/05/16 05:47 Labs: Abnormal Lab Results - Last 24 Hours (Table) 08/04/16 08/04/16 08/04/16 Range/Units 12:07 16:55 21:03 RBC (4.30-5.90) m/uL Hgb (13.0-17.5) gm/dL Hct (39.0-53.0) % MCHC (31.0-37.0) g/dL PT (9.0-12.0) sec Carbon Dioxide (22-30) mmol/L BUN (9-20) mg/dL Creatinine (0.66-1.25) mg/dL Glucose (74-99) mg/dL POC Glucose (mg/dL) 106 H 107 H 108 H (75-99) mg/dL Albumin (3.5-5.0) g/dL 08/05/16 08/05/16 08/05/16 Range/Units 02:07 05:47 05:47 RBC 3.46 L (4.30-5.90) m/uL Hgb 10.5 L (13.0-17.5) gm/dL Hct 34.5 L (39.0-53.0) % MCHC 30.4 L (31.0-37.0) g/dL PT 13.8 H (9.0-12.0) sec Carbon Dioxide (22-30) mmol/L BUN (9-20) mg/dL Creatinine (0.66-1.25) mg/dL Glucose (74-99) mg/dL POC Glucose (mg/dL) 162 H (75-99) mg/dL Albumin (3.5-5.0) g/dL 08/05/16 Range/Units 05:47 RBC (4.30-5.90) m/uL Hgb (13.0-17.5) gm/dL Hct (39.0-53.0) % MCHC (31.0-37.0) g/dL PT (9.0-12.0) sec Carbon Dioxide 31 H (22-30) mmol/L BUN 24 H (9-20) mg/dL Creatinine 0.60 L (0.66-1.25) mg/dL Glucose 111 H (74-99) mg/dL POC Glucose (mg/dL) (75-99) mg/dL Albumin 3.4 L (3.5-5.0) g/dL Assessment and Plan Plan: Impression: 1 status post aortic valve replacement, patient was extubated a few hours postoperatively without any major issues.. 2 history of severe aortic stenosis and regurgitation based on previous transesophageal echocardiogram 3 chronic shortness of breath, multifactorial, however felt to be mostly related to severe aortic valve disease. 4 suspect some component of underlying COPD considering his smoking history, severity of which is not clear. 5 history of hypertension 6 history of hyperlipidemia 7 history of obesity. Plan: The patient was seen and evaluated by Dr. Anglin. He is cleared for discharge from the pulmonary standpoint. We'll see him in the office in 1 week's time and repeat a chest x-ray then. He is encouraged to continue with his incentive spirometer. He'll continue on bronchodilators and his Symbicort. He is encouraged to call sooner with any questions or concerns.
[2016-08-05] MEDS: VITAMIN E (DL,TOCOPHERYL ACET) 400 UNIT CAP PO SCH (12:03)
[2016-08-05] MEDS: CYANOCOBALAMIN 500 MCG TAB PO SCH (12:03)
[2016-08-05 12:06] LABS: Glucose,Whole Blood 98 mg/dL (75-99)
[2016-08-05] MEDS ORDERED: FUROSEMIDE 10 MG/ML 2 ML VIAL IV ONE (12:09)
--- NOTE | 2016-08-05 12:21 | P.PN ---
Progress Note - Text CV Surgery Nursing Principal diagnosis: Severe aortic valve disorder with mixed severe aortic valve stenosis and severe aortic valve regurgitation, bicuspid aortic valve, moderate left ventricular and right ventricular dysfunction, pulmonary hypertension, chronic atrial fibrillation, clots in the left atrial appendage, hypertension, morbid obesity, chronic obstructive pulmonary disease. POD: #4 aortic valve replacement using a 27 mm magna ease pericardial bioprosthesis. Intraoperative transesophageal echocardiogram and epi-epi- aortic scanning. Patient awake and alert, no distress noted, no specific complaints, patient is sitting up to bedside chair at this time. States he has been ambulating in the hallway with minimal assist. Vital Signs: Afebrile Vital Signs - 24 hr 08/04/16 08/04/16 08/04/16 09:20 09:33 10:05 Temperature 96 F L Pulse Rate 68 68 Pulse Rate [ 63 Right Sitting Pulse Oximetery ] Respiratory 18 Rate Blood Pressure 131/77 [Left Arm Sitting] Blood Pressure [Right Arm Sitting] O2 Sat by Pulse 93 L Oximetry 08/04/16 08/04/16 08/04/16 12:12 12:18 12:25 Temperature 98 F Pulse Rate 64 64 Pulse Rate [ 65 Right Sitting Pulse Oximetery ] Respiratory 20 Rate Blood Pressure 114/85 [Left Arm Sitting] Blood Pressure [Right Arm Sitting] O2 Sat by Pulse 98 Oximetry 08/04/16 08/04/16 08/04/16 15:10 16:43 16:54 Temperature 97.5 F L Pulse Rate 68 68 Pulse Rate [ 65 Right Sitting Pulse Oximetery ] Respiratory 18 Rate Blood Pressure 137/67 [Left Arm Sitting] Blood Pressure [Right Arm Sitting] O2 Sat by Pulse 96 Oximetry 08/04/16 08/04/16 08/04/16 20:00 20:40 20:58 Temperature 97.1 F L Pulse Rate 72 72 Pulse Rate [ 71 Right Sitting Pulse Oximetery ] Respiratory 16 Rate Blood Pressure [Left Arm Sitting] Blood Pressure 144/78 [Right Arm Sitting] O2 Sat by Pulse 93 L Oximetry 08/05/16 08/05/16 00:00 04:00 Temperature 97.2 F L Pulse Rate Pulse Rate [ 49 L 69 Right Sitting Pulse Oximetery ] Respiratory 16 16 Rate Blood Pressure [Left Arm Sitting] Blood Pressure 165/80 168/93 [Right Arm Sitting] O2 Sat by Pulse 93 L 96 Oximetry Labs: Short CBC 08/05/16 Range/Units 05:47 WBC 10.0 (3.8-10.6) k/uL Hgb 10.5 L (13.0-17.5) gm/dL Hct 34.5 L (39.0-53.0) % Plt Count 256 (150-450) k/uL BMP 08/05/16 05:47 Sodium 142 Potassium 4.0 Chloride 102 Carbon Dioxide 31 H BUN 24 H Creatinine 0.60 L Glucose 111 H Calcium 8.5 Liver Function 08/05/16 Range/Units 05:47 Total Bilirubin 0.8 (0.2-1.3) mg/dL AST 34 (17-59) U/L ALT 36 (21-72) U/L Alkaline Phosphatase 72 (38-126) U/L Albumin 3.4 L (3.5-5.0) g/dL Lungs: Essentially clear throughout, diminished bilateral bases. Respirations are even and unlabored. O2 sat: 93% on room air. I/S: 1250 mL, reviewed with the patient the importance of using his incentive spirometry every hour while awake. The patient did give a good return demonstration on his incentive spirometry. Heart: S1S2, irregular rhythm and with controlled rate, negative for S3, gallop or murmur. Remote telemetry showing atrial fibrillation heart rate 63. Atrial ventricular epicardial pacemaker wires rounded at this time. Trace pitting edema to his bilateral lower extremities. Knee-high JASKARAN hose and sequential compression devices in place to bilateral lower xtremities. Sternum stable, chest incision clean with silverlon dressing clean and dry. Heart hugger in place, with the patient demonstrating appropriate use. Abdomen: Soft, Positive bowel sounds present in all 4 quadrants, patient had a bowel movement on 08/04/2016. CBGs: 98 162 mg/dL in the last 24 hours. U/O: Adequate. Clear yellow urine. 24 hr Total: Intake & Output 08/03/16 08/04/16 08/05/16 08/06/16 06:59 06:59 06:59 06:59 Intake Total 1895.055 815 360 Output Total 2761 1305 1300 Balance -865.945 -490 -940 Weight 141.5 kg 139.6 kg 137.1 kg Active Medications Hydrocodone Bitart/Acetaminophen ([place] 5-325) 2 each PO Q4HR PRN PRN Reason: Severe Pain Last Admin: 08/03/16 15:29 Dose: 2 each Hydrocodone Bitart/Acetaminophen ([place] 5-325) 1 each PO Q4HR PRN PRN Reason: Moderate Pain Last Admin: 08/04/16 20:53 Dose: 1 each Albuterol/Ipratropium (Duoneb 0.5 Mg-3 Mg/3 Ml Soln) 3 ml INHALATION RT-Q2H PRN PRN Reason: Shortness Of Breath Or Wheezing Albuterol/Ipratropium (Duoneb 0.5 Mg-3 Mg/3 Ml Soln) 3 ml INHALATION RT-QID [facility] Last Admin: 08/04/16 20:40 Dose: 3 ml Alprazolam (Xanax) 0.25 mg PO BID PRN PRN Reason: Anxiety Aspirin (Aspirin) 325 mg PO DAILY [facility] Last Admin: 08/04/16 09:39 Dose: 325 mg Atorvastatin Calcium (Lipitor) 40 mg PO DAILY [facility] Last Admin: 08/04/16 09:39 Dose: 40 mg Benzocaine/Menthol (Cepacol Lozenge) 1 each MUCOUS MEM Q2H PRN PRN Reason: Sore Throat Bisacodyl (Dulcolax) 10 mg RECTAL DAILY PRN PRN Reason: Constipation Budesonide/Formoterol Fumarate (Symbicort 160-4.5 Mcg Inhaler) 2 puff INHALATION RT-BID [facility] Last Admin: 08/04/16 20:39 Dose: 2 puff Bupropion HCl (Wellbutrin) 150 mg PO DAILY [facility] Last Admin: 08/04/16 09:39 Dose: 150 mg Carvedilol (Coreg) 3.125 mg PO BID-W/MEALS [facility] Last Admin: 08/05/16 06:53 Dose: 3.125 mg Clopidogrel Bisulfate (Plavix) 75 mg PO DAILY [facility] Last Admin: 08/04/16 09:39 Dose: 75 mg Cyanocobalamin (Vitamin B-12) 1,000 mcg PO DAILY@1200 [facility] Last Admin: 08/04/16 12:18 Dose: 1,000 mcg Fluoxetine HCl (Prozac) 60 mg PO DAILY [facility] Last Admin: 08/04/16 09:39 Dose: 60 mg Heparin Sodium (Porcine) (Heparin) 5,000 unit SQ Q8HR [facility] Last Admin: 08/04/16 23:27 Dose: 5,000 unit Insulin Human Lispro (Humalog) 0 unit SQ ACHS [facility] PRN Reason: Protocol Last Admin: 08/05/16 06:41 Dose: Not Given Magnesium Hydroxide (Milk Of Magnesia) 2,400 mg PO BID PRN PRN Reason: Constipation Multivitamins (Theragran) 1 each PO DAILY@1200 [facility] Last Admin: 08/04/16 12:18 Dose: 1 each Ondansetron HCl (Zofran) 4 mg IVP Q6HR PRN PRN Reason: Nausea And Vomiting Last Admin: 08/02/16 01:00 Dose: 4 mg Pantoprazole Sodium (Protonix) 40 mg PO AC-BRKFST [facility] Last Admin: 08/05/16 06:53 Dose: 40 mg Senna/Docusate Sodium (Senokot-S) 2 each PO HS [facility] Last Admin: 08/04/16 20:55 Dose: Not Given Sodium Chloride (Saline Flush) 10 ml IV BID [facility] Last Admin: 08/04/16 20:55 Dose: 10 ml Vitamin E (Vitamin E) 400 unit PO DAILY@1200 [facility] Last Admin: 08/04/16 12:18 Dose: 400 unit Plan: 1. Continue aspirin although we decrease the aspirin to 81 mg by mouth daily, statin, Lopressor. 2. Remove epicardial pacemaker wires. Bedrest for one hours post pacemaker wire removal 3. Coumadin 10 mg tonight. PT/INR in a.m. 4. Continue to encourage incentive spirometry use every hour while awake. 5. Increase activity, out of bed in chair all day, ambulate in the hallway as tolerated. PT to follow 6. GI/DVT prophylaxis. Maintained JASKARAN hose and sequential compression devices. 7. Pulmonary management per Dr. Granado.r. 8. Anticipate discharge to home tomorrow. 9. Lisinopril 2.5 mg by mouth daily at noon will be added per his home meds. 10. Discontinue heparin subcu and Plavix. Start Lovenox 120 mg subcu twice a day. 11. We will give Lasix 20 mg IV 1 today. Repeat BMP in a.m.
--- NOTE | 2016-08-05 13:07 | P.PN ---
Subjective Status post aortic valve replacement. Patient has been up and ambulating. Denies any chest pain or shortness breath. Denies a nausea or vomiting. Had 2 bowel movements yesterday. However he is asking for stool softener to be restarted today so that he does not strain during bowel movement. Denies any difficulty urinating Objective - Vital Signs Vital signs: Vital Signs Temp 96.7 F L 08/05/16 09:23 Pulse 62 08/05/16 09:23 Resp 18 08/05/16 09:23 BP 122/59 08/05/16 09:23 Pulse Ox 94 L 08/05/16 09:23 Intake & Output 08/04/16 08/05/16 08/05/16 18:59 06:59 18:59 Intake Total 360 0 200 Output Total 700 600 Balance -340 -600 200 Weight 137.1 kg Intake: IV 0 Pressure Bags 0 Oral 360 200 Output: Urine 700 600 Other: Voiding Method Toilet Toilet # Voids 1 1 2 # Bowel Movements 0 ABP, PAP, CO, CI - Last Documented Arterial Blood Pressure 119/58 Pulmonary Artery Pressure 36/21 Cardiac Output 8.6 Cardiac Index 4.4 - Exam Head normocephalic Neck supple Lungs clear to auscultation bilaterally no wheezing or crackles Heart irregular Abdomen is soft nontender nondistended positive bowel sounds no hepatosplenomegaly Extremities no edema Neuro alert and orientated to 3 - Labs CBC & Chem 7: 08/05/16 05:47 08/05/16 05:47 Labs: Abnormal Lab Results - Last 24 Hours (Table) 08/04/16 08/04/16 08/05/16 Range/Units 16:55 21:03 02:07 RBC (4.30-5.90) m/uL Hgb (13.0-17.5) gm/dL Hct (39.0-53.0) % MCHC (31.0-37.0) g/dL PT (9.0-12.0) sec Carbon Dioxide (22-30) mmol/L BUN (9-20) mg/dL Creatinine (0.66-1.25) mg/dL Glucose (74-99) mg/dL POC Glucose (mg/dL) 107 H 108 H 162 H (75-99) mg/dL Albumin (3.5-5.0) g/dL 08/05/16 08/05/16 08/05/16 Range/Units 05:47 05:47 05:47 RBC 3.46 L (4.30-5.90) m/uL Hgb 10.5 L (13.0-17.5) gm/dL Hct 34.5 L (39.0-53.0) % MCHC 30.4 L (31.0-37.0) g/dL PT 13.8 H (9.0-12.0) sec Carbon Dioxide 31 H (22-30) mmol/L BUN 24 H (9-20) mg/dL Creatinine 0.60 L (0.66-1.25) mg/dL Glucose 111 H (74-99) mg/dL POC Glucose (mg/dL) (75-99) mg/dL Albumin 3.4 L (3.5-5.0) g/dL Assessment and Plan Plan: 1. Severe aortic stenosis and aortic regurgitation. Status post aortic valve replacement postop day #4 2. Chronic persistent atrial fibrillation: Patient was restarted on Coumadin per thoracic surgery 3. History of COPD. Stable no evidence of exacerbation 4. Hyperlipidemia 5. Morbid obesity 6. Diabetes mellitus type 2: Continue sliding scale coverage. Metformin on hold. 7. History of essential hypertension. Blood pressure stable. Anticipating discharge home tomorrow. Patient will need to follow-up with Dr. Dr. Colindres in 1 week.
[2016-08-05 16:53] LABS: Glucose,Whole Blood 104 mg/dL (75-99)
[2016-08-05] MEDS ORDERED: WARFARIN 10 MG TAB PO ONE (18:00)
[2016-08-05] MEDS: ENOXAPARIN 120 MG/0.8 ML SYRINGE SQ SCH (20:21)
[2016-08-05] MEDS: SENNOSIDES-DOCUSATE SODIUM 1 EACH TAB PO SCH (20:27)
[2016-08-05 20:54] LABS: Glucose,Whole Blood 113 mg/dL (75-99)
[2016-08-05] MEDS: HYDROcodone/APAP 5-325MG 1 EACH TAB PO PRN (22:41)
[2016-08-06 02:16] LABS: Glucose,Whole Blood 108 mg/dL (75-99)
[2016-08-06 06:29] LABS: CH 30.4; HCT 33.5 % (39.0-53.0); HDW 2.87; HGB 10.3 gm/dL (13.0-17.5); Hypochromasia Slight; MCH 30.4 pg (25.0-35.0); MCHC 30.8 g/dL (31.0-37.0); MCV 98.8 fL (80.0-100.0); Macrocytosis Slight; Mean Platelet Volume 7.4; RBC 3.39 m/uL (4.30-5.90); RDW 15.2 % (11.5-15.5); WBC 9.6 k/uL (3.8-10.6)
[2016-08-06 06:29] LABS: Glucose,Whole Blood 102 mg/dL (75-99)
[2016-08-06] MEDS: INSULIN LISPRO (humaLOG) 300 UNIT/3 ML VIAL SQ SCH ×2 (06:30→14:05)
[2016-08-06 06:31] LABS: INR 1.8 (<1.1); Prothrombin Time 17.6 sec (9.0-12.0)
[2016-08-06] MEDS: CARVEDILOL 3.125 MG TAB PO SCH (06:33)
[2016-08-06] MEDS: PANTOPRAZOLE 40 MG TABLET PO SCH (06:34)
[2016-08-06 06:40] LABS: ALT 38 U/L (21-72); AST 36 U/L (17-59); Alkaline Phosphatase 80 U/L (38-126); Anion Gap 9 mmol/L; Blood Urea Nitrogen 24 mg/dL (9-20); Calcium 8.6 mg/dL (8.4-10.2); Carbon Dioxide 30 mmol/L (22-30); Chloride 102 mmol/L (98-107); Glucose 110 mg/dL (74-99); Non-African American GFR(MDRD) >60 (>60 ml/min/1.73 sqM); Potassium 3.9 mmol/L (3.5-5.1); Sodium 141 mmol/L (137-145); Total Bilirubin 0.9 mg/dL (0.2-1.3); Total Protein 6.3 g/dL (6.3-8.2)
[2016-08-06] MEDS: ENOXAPARIN 120 MG/0.8 ML SYRINGE SQ SCH (08:13)
[2016-08-06] MEDS: FLUoxetine HCL 20 MG CAP PO SCH (08:14)
[2016-08-06] MEDS: ATORVASTATIN 40 MG TAB PO SCH (08:14)
[2016-08-06] MEDS: buPROPion 75 MG TAB PO SCH (08:15)
[2016-08-06] MEDS: SYMBICORT 160-4.5 MCG INHALER INHALATION SCH (08:31)
[2016-08-06] MEDS: IPRATROPIUM-ALBUTEROL 3 ML NEB INHALATION SCH ×2 (08:31→11:52)
[2016-08-06] MEDS ORDERED: ASPIRIN 81 MG CHEW PO SCH (09:00)
--- NOTE | 2016-08-06 11:21 | P.PN ---
Subjective Principal diagnosis: Status post aortic valve replacement using 27 mm magna ease pericardial bioprosthesis. Patient is status post aortic valve replacement for severe aortic valve disorder with mixed aortic valve regurgitation and stenosis. Patient had a bicuspid aortic valve, moderate left ventricular and right ventricular dysfunction, pulmonary hypertension, and chronic atrial fibrillation he also had clots in the left atrial appendage. Patient has underlying COPD, morbid obesity, and his postoperative course was relatively uneventful. Patient was extubated last night without any major issues. Doing well today, comfortable, sitting in bed, in no distress. Reevaluated today on 08/03/2016, patient is doing relatively well. Relatively uneventful postoperative course so far. Reevaluated today on 08/04/2016, patient continues to do well. No specific complaints except for the vague aches and pains. Patient is status post aortic valve replacement for severe aortic valve disorder with mixed aortic valve regurgitation and stenosis. Patient had a bicuspid aortic valve. Patient is already ambulating in the hallway, and he is doing quite well with incentive spirometry. The patient is seen again today 08/05/2016 in follow-up on the selective care unit. He is currently awake and alert in no acute distress. He is sitting up in the chair at the bedside. He denies any worsening shortness of breath, cough or congestion. He is doing very well on his incentive spirometer. He denies any significant discomfort. His pain is well controlled. He is hoping to go home today. Patient was reevaluated today on 08/06/2016, doing quite well, no cough no wheezing no shortness of breath, patient is being considered for discharging home. Objective - Vital Signs Vital signs: Vital Signs Temp 97.8 F 08/05/16 20:00 Pulse 72 08/06/16 08:40 Resp 14 08/06/16 04:00 BP 156/95 08/06/16 04:00 Pulse Ox 93 L 08/06/16 04:00 Intake & Output 08/05/16 08/06/16 08/06/16 18:59 06:59 18:59 Intake Total 680 300 180 Balance 680 300 180 Weight 138.7 kg Intake: Oral 680 300 180 Other: Voiding Method Toilet # Voids 1 2 ABP, PAP, CO, CI - Last Documented Arterial Blood Pressure 119/58 Pulmonary Artery Pressure 36/21 Cardiac Output 8.6 Cardiac Index 4.4 - Exam GENERAL EXAM: Alert, active, comfortable in no apparent distress. HEAD: Normocephalic. EYES: Normal reaction of pupils, equal size. NOSE: Clear with pink turbinates. THROAT: No erythema or exudates. NECK: No masses, no JVD. CHEST: No chest wall deformity. Sternal dressing is dry and intact. LUNGS: Equal air entry with no crackles, wheeze, rhonchi or dullness. Diminished bases. CVS: S1 and S2 normal with an audible murmur, regular rhythm. ABDOMEN: No hepatosplenomegaly, normal bowel sounds, no guarding or rigidity. SPINE: No scoliosis or deformity SKIN: No rashes CENTRAL NERVOUS SYSTEM: No focal deficits, tone is normal in all 4 extremities. Extremities: There is trace peripheral edema. No clubbing, no cyanosis. Peripheral pulses are intact. - Labs CBC & Chem 7: 08/06/16 06:12 08/06/16 06:12 Labs: Abnormal Lab Results - Last 24 Hours (Table) 08/05/16 08/05/16 08/06/16 Range/Units 16:50 20:49 02:14 RBC (4.30-5.90) m/uL Hgb (13.0-17.5) gm/dL Hct (39.0-53.0) % MCHC (31.0-37.0) g/dL PT (9.0-12.0) sec BUN (9-20) mg/dL Creatinine (0.66-1.25) mg/dL Glucose (74-99) mg/dL POC Glucose (mg/dL) 104 H 113 H 108 H (75-99) mg/dL Albumin (3.5-5.0) g/dL 08/06/16 08/06/16 08/06/16 Range/Units 06:12 06:12 06:12 RBC 3.39 L (4.30-5.90) m/uL Hgb 10.3 L (13.0-17.5) gm/dL Hct 33.5 L (39.0-53.0) % MCHC 30.8 L (31.0-37.0) g/dL PT 17.6 H (9.0-12.0) sec BUN 24 H (9-20) mg/dL Creatinine 0.60 L (0.66-1.25) mg/dL Glucose 110 H (74-99) mg/dL POC Glucose (mg/dL) (75-99) mg/dL Albumin 3.3 L (3.5-5.0) g/dL 08/06/16 Range/Units 06:26 RBC (4.30-5.90) m/uL Hgb (13.0-17.5) gm/dL Hct (39.0-53.0) % MCHC (31.0-37.0) g/dL PT (9.0-12.0) sec BUN (9-20) mg/dL Creatinine (0.66-1.25) mg/dL Glucose (74-99) mg/dL POC Glucose (mg/dL) 102 H (75-99) mg/dL Albumin (3.5-5.0) g/dL Assessment and Plan Plan: 1 status post aortic valve replacement, patient was extubated a few hours postoperatively without any major issues.. 2 history of severe aortic stenosis and regurgitation based on previous transesophageal echocardiogram 3 chronic shortness of breath, multifactorial, however felt to be mostly related to severe aortic valve disease. 4 suspect some component of underlying COPD considering his smoking history, severity of which is not clear. 5 history of hypertension 6 history of hyperlipidemia 7 history of obesity Recommendation: Agree with discharge planning today, follow up on outpatient basis continue incentive spirometry. Time with Patient: Less than 30
[2016-08-06 12:02] LABS: Glucose,Whole Blood 115 mg/dL (75-99)
--- NOTE | 2016-08-06 12:08 | P.PN ---
Progress Note - Text CV Surgery Nursing POD: #5, aortic valve replacement using a 27 mm magna ease pericardial bioprosthesis. Intraoperative transesophageal echocardiogram and epi-aortic ultrasonography. Patient awake and alert, sitting in chair, no distress noted, no specific complaints. Vital Signs: Afebrile, T-max 98.1F Vital Signs - 24 hr 08/05/16 08/05/16 08/05/16 16:12 19:56 20:00 Temperature 97.2 F L 97.8 F Pulse Rate 80 Pulse Rate [ 71 62 Right Sitting Pulse Oximetery ] Respiratory 18 14 Rate Blood Pressure 137/72 119/74 [Left Arm Sitting] O2 Sat by Pulse 96 95 Oximetry 08/05/16 08/05/16 08/05/16 20:07 23:10 23:12 Temperature Pulse Rate 80 Pulse Rate [ 63 63 Right Sitting Pulse Oximetery ] Respiratory 14 14 Rate Blood Pressure 116/84 [Left Arm Sitting] O2 Sat by Pulse 100 Oximetry 08/06/16 08/06/16 08/06/16 04:00 08:33 08:40 Temperature Pulse Rate 76 72 Pulse Rate [ 72 Right Sitting Pulse Oximetery ] Respiratory 14 Rate Blood Pressure 156/95 [Left Arm Sitting] O2 Sat by Pulse 93 L Oximetry 08/06/16 11:53 Temperature Pulse Rate 76 Pulse Rate [ Right Sitting Pulse Oximetery ] Respiratory Rate Blood Pressure [Left Arm Sitting] O2 Sat by Pulse Oximetry Labs: Short CBC 08/06/16 Range/Units 06:12 WBC 9.6 (3.8-10.6) k/uL Hgb 10.3 L (13.0-17.5) gm/dL Hct 33.5 L (39.0-53.0) % Plt Count 297 (150-450) k/uL BMP 08/06/16 06:12 Sodium 141 Potassium 3.9 Chloride 102 Carbon Dioxide 30 BUN 24 H Creatinine 0.60 L Glucose 110 H Calcium 8.6 Liver Function 08/06/16 Range/Units 06:12 Total Bilirubin 0.9 (0.2-1.3) mg/dL AST 36 (17-59) U/L ALT 38 (21-72) U/L Alkaline Phosphatase 80 (38-126) U/L Albumin 3.3 L (3.5-5.0) g/dL ProTime is 17.6, INR 1.8 Lungs: Respirations are even and nonlabored, breath sounds slightly diminished bilaterally O2 sat: 93% on room air Heart: S1S2, portable telemetry shows atrial fibrillation with a controlled ventricular response. Sternum stable, chest incision clean with silverlon dressing clean and dry. Slight edema to bilateral lower legs Abdomen: Soft, Positive bowel sounds present in all 4 quadrants. CBGs: 102-113 mg/dL U/O: Adequate Intake & Output 08/04/16 08/05/16 08/06/16 08/07/16 06:59 06:59 06:59 06:59 Intake Total 815 360 980 180 Output Total 1305 1300 Balance -490 -940 980 180 Weight 139.6 kg 137.1 kg 138.7 kg Active Medications Hydrocodone Bitart/Acetaminophen (Perry 5-325) 2 each PO Q4HR PRN PRN Reason: Severe Pain Last Admin: 08/03/16 15:29 Dose: 2 each Hydrocodone Bitart/Acetaminophen (Perry 5-325) 1 each PO Q4HR PRN PRN Reason: Moderate Pain Last Admin: 08/05/16 22:41 Dose: 1 each Albuterol/Ipratropium (Duoneb 0.5 Mg-3 Mg/3 Ml Soln) 3 ml INHALATION RT-Q2H PRN PRN Reason: Shortness Of Breath Or Wheezing Albuterol/Ipratropium (Duoneb 0.5 Mg-3 Mg/3 Ml Soln) 3 ml INHALATION RT-QID [facility] Last Admin: 08/06/16 11:52 Dose: 3 ml Alprazolam (Xanax) 0.25 mg PO BID PRN PRN Reason: Anxiety Aspirin (Aspirin) 81 mg PO DAILY [facility] Last Admin: 08/06/16 08:14 Dose: 81 mg Atorvastatin Calcium (Lipitor) 40 mg PO DAILY [facility] Last Admin: 08/06/16 08:14 Dose: 40 mg Benzocaine/Menthol (Cepacol Lozenge) 1 each MUCOUS MEM Q2H PRN PRN Reason: Sore Throat Bisacodyl (Dulcolax) 10 mg RECTAL DAILY PRN PRN Reason: Constipation Budesonide/Formoterol Fumarate (Symbicort 160-4.5 Mcg Inhaler) 2 puff INHALATION RT-BID [facility] Last Admin: 08/06/16 08:31 Dose: 2 puff Bupropion HCl (Wellbutrin) 150 mg PO DAILY [facility] Last Admin: 08/06/16 08:15 Dose: 150 mg Carvedilol (Coreg) 3.125 mg PO BID-W/MEALS [facility] Last Admin: 08/06/16 06:33 Dose: 3.125 mg Cyanocobalamin (Vitamin B-12) 1,000 mcg PO DAILY@1200 [facility] Last Admin: 08/05/16 12:03 Dose: 1,000 mcg Docusate Sodium (Colace) 100 mg PO DAILY [facility] Last Admin: 08/05/16 12:02 Dose: 100 mg Enoxaparin Sodium (Lovenox) 120 mg SQ Q12HR [facility] Last Admin: 08/06/16 08:13 Dose: 120 mg Fluoxetine HCl (Prozac) 60 mg PO DAILY [facility] Last Admin: 08/06/16 08:14 Dose: 60 mg Insulin Human Lispro (Humalog) 0 unit SQ [facility] PRN Reason: Protocol Last Admin: 08/06/16 06:30 Dose: Not Given Lisinopril (Zestril) 2.5 mg PO DAILY@1200 [facility] Last Admin: 08/05/16 12:02 Dose: 2.5 mg Magnesium Hydroxide (Milk Of Magnesia) 2,400 mg PO BID PRN PRN Reason: Constipation Multivitamins (Theragran) 1 each PO DAILY@1200 [facility] Last Admin: 08/05/16 12:02 Dose: 1 each Ondansetron HCl (Zofran) 4 mg IVP Q6HR PRN PRN Reason: Nausea And Vomiting Last Admin: 08/02/16 01:00 Dose: 4 mg Pantoprazole Sodium (Protonix) 40 mg PO AC-BRKFST [facility] Last Admin: 08/06/16 06:34 Dose: 40 mg Senna/Docusate Sodium (Senokot-S) 2 each PO HS [facility] Last Admin: 08/05/16 20:27 Dose: Not Given Sodium Chloride (Saline Flush) 10 ml IV BID [facility] Last Admin: 08/06/16 08:15 Dose: 10 ml Vitamin E (Vitamin E) 400 unit PO DAILY@1200 [facility] Last Admin: 08/05/16 12:03 Dose: 400 unit Plan: Status post aortic valve replacement day #5 Good progress Continue aggressive pulmonary toilet Continue to increase activity Discharge home Instructions given
--- NOTE | 2016-08-06 12:45 | P.PN ---
Subjective Patient is doing well today. He is looking forward to go home. Objective - Vital Signs Vital signs: Vital Signs Temp 97.8 F 08/05/16 20:00 Pulse 76 08/06/16 12:02 Resp 14 08/06/16 04:00 BP 156/95 08/06/16 04:00 Pulse Ox 93 L 08/06/16 04:00 Intake & Output 08/05/16 08/06/16 08/06/16 18:59 06:59 18:59 Intake Total 680 300 180 Balance 680 300 180 Weight 138.7 kg Intake: Oral 680 300 180 Other: Voiding Method Toilet # Voids 1 2 ABP, PAP, CO, CI - Last Documented Arterial Blood Pressure 119/58 Pulmonary Artery Pressure 36/21 Cardiac Output 8.6 Cardiac Index 4.4 - Exam General: The patient is awake and alert, in no distress Eye: there is normal conjunctiva bilaterally. Neck: The neck is supple, there is no JVD. Cardiovascular: Normal S1-S2, no S3-S4, no murmurs. Respiratory: Lungs clear to auscultation bilaterally Gastrointestinal: Abdomen is soft, nontender Musculoskeletal: There is no pedal edema. Neurological:. Speech is normal. Skin: Skin is warm and dry - Labs CBC & Chem 7: 08/06/16 06:12 08/06/16 06:12 Labs: Abnormal Lab Results - Last 24 Hours (Table) 08/05/16 08/05/16 08/06/16 Range/Units 16:50 20:49 02:14 RBC (4.30-5.90) m/uL Hgb (13.0-17.5) gm/dL Hct (39.0-53.0) % MCHC (31.0-37.0) g/dL PT (9.0-12.0) sec BUN (9-20) mg/dL Creatinine (0.66-1.25) mg/dL Glucose (74-99) mg/dL POC Glucose (mg/dL) 104 H 113 H 108 H (75-99) mg/dL Albumin (3.5-5.0) g/dL 08/06/16 08/06/16 08/06/16 Range/Units 06:12 06:12 06:12 RBC 3.39 L (4.30-5.90) m/uL Hgb 10.3 L (13.0-17.5) gm/dL Hct 33.5 L (39.0-53.0) % MCHC 30.8 L (31.0-37.0) g/dL PT 17.6 H (9.0-12.0) sec BUN 24 H (9-20) mg/dL Creatinine 0.60 L (0.66-1.25) mg/dL Glucose 110 H (74-99) mg/dL POC Glucose (mg/dL) (75-99) mg/dL Albumin 3.3 L (3.5-5.0) g/dL 08/06/16 08/06/16 Range/Units 06:26 11:57 RBC (4.30-5.90) m/uL Hgb (13.0-17.5) gm/dL Hct (39.0-53.0) % MCHC (31.0-37.0) g/dL PT (9.0-12.0) sec BUN (9-20) mg/dL Creatinine (0.66-1.25) mg/dL Glucose (74-99) mg/dL POC Glucose (mg/dL) 102 H 115 H (75-99) mg/dL Albumin (3.5-5.0) g/dL Assessment and Plan Plan: 1. Severe aortic stenosis and aortic regurgitation. Status post aortic valve replacement postop day #5 2. Chronic persistent atrial fibrillation: Patient was restarted on Coumadin per thoracic surgery 3. History of COPD. Stable no evidence of exacerbation 4. Hyperlipidemia 5. Morbid obesity 6. Diabetes mellitus type 2: Continue home regimen 7. History of essential hypertension. Blood pressure stable. Patient is cleared for discharge home. Medication reconciliation form by cardiac surgery.
--- NOTE | 2016-08-06 13:07 | P.PN ---
Subjective Principal diagnosis: Status post aortic valve replacement This is a 65-year-old gentleman who is status post aortic valve replacement. He has history of hypertension as well as chronic persistent atrial fibrillation, continues to be in atrial fibrillation with a heart rate stable today. Denies any chest pain, breathing has been stable overall. INR 1.8 today. Cardiothoracic surgery managing the Coumadin. Objective - Vital Signs Vital signs: Vital Signs Temp 97.8 F 08/05/16 20:00 Pulse 76 08/06/16 12:02 Resp 14 08/06/16 04:00 BP 156/95 08/06/16 04:00 Pulse Ox 93 L 08/06/16 04:00 Intake & Output 08/05/16 08/06/16 08/06/16 18:59 06:59 18:59 Intake Total 680 300 180 Balance 680 300 180 Weight 138.7 kg Intake: Oral 680 300 180 Other: Voiding Method Toilet # Voids 1 2 ABP, PAP, CO, CI - Last Documented Arterial Blood Pressure 119/58 Pulmonary Artery Pressure 36/21 Cardiac Output 8.6 Cardiac Index 4.4 - Exam PHYSICAL EXAMINATION: HEENT: Head is atraumatic, normocephalic. Pupils equal, round. Neck is supple. There is no elevated jugular venous pressure. HEART EXAMINATION: Heart S1 and S2 irregularly irregular systolic murmur is heard CHEST EXAMINATION: Lungs are clear with mild diminished air entry to the bases. ABDOMEN: Soft, nontender. Bowel sounds are heard. No organomegaly noted. EXTREMITIES: 2+ peripheral pulses with trace evidence of peripheral edema and no calf tenderness noted. NEUROLOGIC patient is awake, alert and oriented -3. . - Labs CBC & Chem 7: 08/06/16 06:12 08/06/16 06:12 Labs: Abnormal Lab Results - Last 24 Hours (Table) 08/05/16 08/05/16 08/06/16 Range/Units 16:50 20:49 02:14 RBC (4.30-5.90) m/uL Hgb (13.0-17.5) gm/dL Hct (39.0-53.0) % MCHC (31.0-37.0) g/dL PT (9.0-12.0) sec BUN (9-20) mg/dL Creatinine (0.66-1.25) mg/dL Glucose (74-99) mg/dL POC Glucose (mg/dL) 104 H 113 H 108 H (75-99) mg/dL Albumin (3.5-5.0) g/dL 08/06/16 08/06/16 08/06/16 Range/Units 06:12 06:12 06:12 RBC 3.39 L (4.30-5.90) m/uL Hgb 10.3 L (13.0-17.5) gm/dL Hct 33.5 L (39.0-53.0) % MCHC 30.8 L (31.0-37.0) g/dL PT 17.6 H (9.0-12.0) sec BUN 24 H (9-20) mg/dL Creatinine 0.60 L (0.66-1.25) mg/dL Glucose 110 H (74-99) mg/dL POC Glucose (mg/dL) (75-99) mg/dL Albumin 3.3 L (3.5-5.0) g/dL 08/06/16 08/06/16 Range/Units 06:26 11:57 RBC (4.30-5.90) m/uL Hgb (13.0-17.5) gm/dL Hct (39.0-53.0) % MCHC (31.0-37.0) g/dL PT (9.0-12.0) sec BUN (9-20) mg/dL Creatinine (0.66-1.25) mg/dL Glucose (74-99) mg/dL POC Glucose (mg/dL) 102 H 115 H (75-99) mg/dL Albumin (3.5-5.0) g/dL Assessment and Plan (1) S/P AVR (aortic valve replacement) Status: Acute (2) Dilated cardiomyopathy Status: Acute (3) COPD (chronic obstructive pulmonary disease) Status: Acute (4) Chronic atrial fibrillation Status: Acute (5) Hypertension Status: Acute Plan: From cardiology's perspective, we will recommend that the aspirin and Plavix be discontinued, continue anticoagulation with Coumadin. If the patient was discharged, consider Lovenox until the INR is therapeutic. Appointment will be made with Dr. Galicia in the office post discharge. DNP note has been reviewed, I agree with a documented findings and plan of care. Patient was seen and examined.
[2016-08-06] MEDS: DOCUSATE 100 MG CAP PO SCH (14:05)
[2016-08-06] MEDS: VITAMIN E (DL,TOCOPHERYL ACET) 400 UNIT CAP PO SCH (14:07)
[2016-08-06] MEDS: MULTIVITAMINS, THERA 1 EACH TAB PO SCH (14:07)
[2016-08-06] MEDS: CYANOCOBALAMIN 500 MCG TAB PO SCH (14:07)
[2016-08-06] MEDS: LISINOPRIL 2.5 MG TAB PO SCH (14:07)
[2016-08-06 16:05] VITALS: BP 150/61; PULSE 72; RESP 16; TEMP 96.8
--- NOTE | 2016-08-07 10:04 | P.DS ---
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: post cardiac surgery Do you want consulting provider notified?: Yes Primary care physician: Tony Bernadine [facility] Course: FINAL DIAGNOSIS: 1.[Aortic stenosis] 2.[Aortic regurgitation] 3.[Chronic obstructive pulmonary disease] 4.[Diabetes mellitus] 5.[Hypertension] 6.[Osteoarthritis] 7.[Sleep apnea] PRINCIPAL PROCEDURE: [08/02/2016] 1.[Aortic valve replacement using a 27 mm magna ease pericardial bioprosthesis] 2.[Intraoperative Transesophageal echocardiogram] 3.[Epi-aortic ultrasonography] HISTORY OF PRESENT ILLNESS: [This is a 65-year-old white male with a history of severe aortic valve disease and was being followed by Dr. Galicia for number of years for his aortic valve disease. On his most recent transesophageal echocardiogram patient was noted to have worsening stenosis and worsening regurgitation. Hence he was referred to cardiothoracic surgery for aortic valve replacement. Patient had been experiencing worsening dyspnea on exertion which was felt to be related mostly to his underlying aortic valve disease] HOSPITAL COURSE:[The patient was admitted to the hospital, underwent surgery on 08/02/2016 as above. Postoperatively he was weaned from the ventilator and inotropic support and transferred to stepdown unit where he remained until his discharge.] COMPLICATIONS: [None] CONSULTATIONS: 1.[Dr. Anglin, pulmonary] 2.[Dr. Galicia, cardiology] 3.[Dr. Colindres, medical management] DISCHARGE INSTRUCTIONS: 1. No driving for 4 weeks, or until physician gives their ok. 2. The patient should sleep in their own bed, no medical bed needed. 3. Stairs are not an issue. If the bedroom is upstairs, it is advised that the patient go up at night and down in the morning for the first week. Go slowly, using handrail and take 1 step at a time. 4. JASKARAN hose are to be worn for 30 days or until physician discontinues. 5. Heart hugger is to be worn 100% of the time until physician discontinues.( excepet when showering) 6. No lifting, pushing, or pulling more than 10 pounds for 12 weeks. The physician will advise of any restriction changes. 7. The patient is expected to continue the prescribed walking program. 8. Continue pain control per as needed orders. 9. Continue with incentive spirometry and splinting/heart hugger until otherwise directed by the physician. 10. Must shower daily using liquid antibacterial soap and a separate white washcloth for each individual incision. 11. Please remove Silverlon chest dressing on [08/13/2016] with routine sternal incision care thereafter. HOME HEALTH SERVICES TO PROVIDE: RN SKILLED HOME CARE SERVICES FOR POST-OP SURGICAL PATIENTS WITH THE FOLLOWING: Coronary Artery Bypass Surgery (CABG), Mitral Valve Replacement/ Repair ( MVR), Aortic Valve Replacement/Repair (AVR) RN TO CONTINUE EDUCATION FROM "ROAD TO A HEALTH HEART PATIENT EDUCATION MANUAL" (GIVEN TO PATIENT IN THE HOSPITAL) MEDICATION RECONCILIATION WITH EDUCATION NEEDED ON FIRST HOME VISIT EMPHASIZE IMPORTANCE OF WEARING BREAST SUPPORT/HEART HUGGER ENCOURAGE USE OF INCENTIVE SPIROMETER 10 X EVERY HOUR WHILE AWAKE ENCOURAGE UTILIZATION OF LOWER EXTREMITY COMPRESSION STOCKINGS/JASKARAN HOSE and ELEVATE LEGS ABOVE LEVEL OF HEART WHILE AT REST. ENCOURAGE AMBULATION 3-5x/day INCREASING TOLERATES, WHILE AVOID EXTREMES IN TEMPERATURE. FREQUENCY: RN TO OPEN THE PATIENT WITHIN 24 HOURS OF DISCHARGE FROM THE HOSPITAL WITH TELEHEALTH INSTALLED AT [facility] [place] TO VISIT 2-3 X A WEEK FOR 4 WEEKS ESTABLISHED BY PATIENT NEEDS. REMOVAL OF SUTURES: NURSING SERVICES TO REMOVE SUTURES TWO WEEKS POST SURGICAL DATE [ default ]. If any questions regarding suture removal please call the office at [phone]. LABORATORY: CBC, CMP, PT, INR TO BE DRAWN ON THE THIRD DAY HOME, [08/09/2016] (RAN STAT) FAX RESULTS TO [phone]. TELEHEALTH PARAMETERS: WEIGHT: NOTIFY MD OF WEIGHT GAIN OF 2 LBS IN 24 HOURS OR 5 LBS IN ONE WEEK HR: NOTIFY MD OF HR <55 BPM OR HR>100 BPM BP: NOTIFY MD IF BP <90/55 OR BP>140/100 O2 SAT: NOTIFY MD IF PO2<93% ON ROOM AIR SEND TELEHEALTH REPORT TO MECHANICAL LABORATORY TECHNICIAN AND CARDIOVASCULAR SURGEON THE FIRST WEEK OF CARE AND THEN BI-WEEKLY. PLEASE ADDITIONALLY COMMUNICATE ANY ABNORMALS AND NEW FINDINGS TO THE SURGEONS OFFICE. DISCHARGE MEDICATIONS: 1.[Aspirin 81 mg daily] 2.[Lipitor 40 mg daily] 3.[Coreg 3.125 mg twice daily with breakfast and supper] 4.[Lasix 40 mg daily] 5.[Protonix 40 mg before breakfast] 6.[Xanax 0.25 mg twice daily as needed] 7.[Vitamin B12 1000 g daily] 8.[Colace 100 mg daily as needed] 9.[Vitamin D2 50,000 units orally every Monday] 10.[[place] 10-325 3 times daily as needed] 11.[DuoNeb 0.5 mg in 3 mL of solution via nebulizer 4 times daily as needed] 12.[Lisinopril 2.5 mg daily each morning] 13.[multivitamin 1 daily] 14.[Vitamin E4 100 units daily] 15.[Coumadin 10 mg every Monday and Monday] 16.[Coumadin 12.5 mg every Monday] 17.[Wellbutrin SR 150 mg daily each morning] 18.[Glucophage 500 mg each morning] 19.[Tramadol 50 mg twice daily as needed] FOLLOW-UP APPOINTMENTS: 1.[Dr. Anglin on 08/19/2016 at 10 AM ] 2.[Dr. Ram on 08/26/2016 at 11 AM ] 3.[[facility] ] 4.[Dr. Colindres on 08/18/2016 at 10:30 AM ] 5.[Dr. Romy Galicia on 08/18/2016 at 2:30 PM ] Patient Condition at Discharge: Good Plan - Discharge Summary New Discharge Prescriptions: Aspirin 81 mg PO DAILY #30 chew Atorvastatin [Lipitor] 40 mg PO DAILY #30 tab Carvedilol [Coreg] 3.125 mg PO BID-W/MEALS #60 tab Furosemide [Lasix] 40 mg PO DAILY #30 tablet Pantoprazole [Protonix] 40 mg PO AC-BRKFST #30 tablet. Discharge Medication List ALPRAZolam [Xanax] 0.25 mg PO BID PRN 10/15/14 [History] HYDROcodone/APAP 10-325MG [[place] 10-325] 1 tab PO TID PRN 10/15/14 [History] Lisinopril [Zestril] 2.5 mg PO QAM 10/15/14 [History] Warfarin [Coumadin] 10 mg PO SUMOTUTHFRSA 10/15/14 [History] metFORMIN HCL [Glucophage] 500 mg PO QAM 10/15/14 [History] buPROPion HCL [Wellbutrin SR] 150 mg PO QAM 01/21/15 [History] traMADol HCl [Ultram] 50 mg PO BID PRN 01/21/15 [History] Ergocalciferol (Vitamin D2) [Drisdol] 50,000 unit PO SA 04/01/15 [History] Docusate [Colace] 100 mg PO DAILY PRN 11/05/15 [History] Ipratropium-Albuterol Nebulize [Duoneb 0.5 mg-3 mg/3 ml Soln] 3 ml INHALATION RT -QID PRN 11/05/15 [History] Multivitamins, Thera [Multivitamin] 1 tab PO DAILY 11/05/15 [History] Warfarin Sodium 12.5 mg PO WE 11/05/15 [History] Cyanocobalamin [Vitamin B-12] 1,000 mcg PO DAILY 07/21/16 [History] Vitamin E (Dl,Tocopheryl Acet) [Vitamin E] 400 unit PO DAILY 07/21/16 [History] FLUoxetine HCL [Sarafem] 60 mg PO DAILY 08/01/16 [History] Aspirin 81 mg PO DAILY #30 chew 08/06/16 [Rx] Atorvastatin [Lipitor] 40 mg PO DAILY #30 tab 08/06/16 [Rx] Carvedilol [Coreg] 3.125 mg PO BID-W/MEALS #60 tab 08/06/16 [Rx] Furosemide [Lasix] 40 mg PO DAILY #30 tablet 08/06/16 [Rx] Pantoprazole [Protonix] 40 mg PO AC-BRKFST #30 tablet. 08/06/16 [Rx] Follow up Appointment(s)/Referral(s): Teresa Anglin MD [STAFF PHYSICIAN] - 08/19/16 10:00 am Frank Ram MD [STAFF PHYSICIAN] - 08/26/16 11:00 am [facility], [NON-STAFF] - Tony Colindres MD [Primary Care Provider] - 08/18/16 10:30 am Ronnie Galicia MD [STAFF PHYSICIAN] - 08/18/16 2:30 pm Ambulatory/Diagnostic Orders: Complete Blood Count w/diff [LAB.AMB] Time Frame: 3 Days, Facility: [facility], Location: Laboratory [facility] Comprehensive Metabolic Panel [LAB.AMB] Time Frame: 3 Days, Facility: [facility], Location: Laboratory [facility] Prothrombin Time INR [LAB.AMB] Time Frame: 3 Days, Facility: [facility] , Location: Laboratory [facility] Patient Instructions/Handouts: Sternal Precautions (GEN), Coronary Artery Bypass Graft (DC) Activity/Diet/Wound Care/Special Instructions: DISCHARGE INSTRUCTIONS: 1. No driving for 4 weeks, or until physician gives their ok. 2. The patient should sleep in their own bed, no medical bed needed. 3. Stairs are not an issue. If the bedroom is upstairs, it is advised that the patient go up at night and down in the morning for the first week. Go slowly, using handrail and take 1 step at a time. 4. JASKARAN hose are to be worn for 30 days or until physician discontinues. 5. Heart hugger is to be worn 100% of the time until physician discontinues.( except when showering) 6. No lifting, pushing, or pulling more than 10 pounds for 12 weeks. The physician will advise of any restriction changes. 7. The patient is expected to continue the prescribed walking program. 8. Continue pain control per as needed orders. 9. Continue with incentive spirometry and splinting/heart hugger until otherwise directed by the physician. 10. Must shower daily using liquid antibacterial soap and a separate white washcloth for each individual incision. 11. Please remove Silverlon chest dressing on [August 08] with routine sternal incision care thereafter. 12. PT/INR levels to be drawn 3 days post discharge and results called/faxed to Cardiology office coumadin clinic for further dosing HOME HEALTH SERVICES TO PROVIDE: RN SKILLED HOME CARE SERVICES FOR POST-OP SURGICAL PATIENTS WITH THE FOLLOWING: Coronary Artery Bypass Surgery (CABG), Mitral Valve Replacement/ Repair ( MVR), Aortic Valve Replacement/Repair (AVR) RN TO CONTINUE EDUCATION FROM ``ROAD TO A HEALTH HEART PATIENT EDUCATION MANUAL (GIVEN TO PATIENT IN THE HOSPITAL) MEDICATION RECONCILIATION WITH EDUCATION NEEDED ON FIRST HOME VISIT EMPHASIZE IMPORTANCE OF WEARING HEART HUGGER ENCOURAGE USE OF INCENTIVE SPIROMETER 10 X EVERY HOUR WHILE AWAKE ENCOURAGE UTILIZATION OF LOWER EXTREMITY COMPRESSION STOCKINGS/JASKARAN HOSE and ELEVATE LEGS ABOVE LEVEL OF HEART WHILE AT REST. ENCOURAGE AMBULATION 3-5x/day INCREASING TOLERATES, WHILE AVOID EXTREMES IN TEMPERATURE FREQUENCY: RN TO OPEN THE PATIENT WITHIN 24 HOURS OF DISCHARGE FROM THE HOSPITAL WITH TELEHEALTH INSTALLED AT [facility] [place] RN TO VISIT 2-3 X A WEEK FOR 4 WEEKS ESTABLISHED BY PATIENT NEEDS. REMOVAL OF SUTURES: NURSING SERVICES TO REMOVE SUTURES TWO WEEKS POST SURGICAL DATE [ August 15, 2016]. If any questions regarding suture removal please call the office at [phone]. LABORATORY: CBC, CMP, PT/INR TO BE DRAWN ON THE THIRD DAY HOME, Monday08/09/2016 (RAN STAT) FAX RESULTS TO [phone]. TELEHEALTH PARAMETERS: WEIGHT: NOTIFY MD OF WEIGHT GAIN OF 2 LBS IN 24 HOURS OR 5 LBS IN ONE WEEK HR: NOTIFY MD OF HR <55 BPM OR HR>100 BPM BP: NOTIFY MD IF BP <90/55 OR BP>140/100 O2 SAT: NOTIFY MD IF PO2<93% ON ROOM AIR SEND TELEHEALTH REPORT TO MECHANICAL LABORATORY TECHNICIAN AND CARDIOVASCULAR SURGEON THE FIRST WEEK OF CARE AND THEN BI-WEEKLY. PLEASE ADDITIONALLY COMMUNICATE ANY ABNORMALS AND NEW FINDINGS TO THE SURGEONS OFFICE. Discharge Disposition: HOME WITH HOME HEALTH SERVICES
== END 2016-08-06 15:28 | disposition home health service (06) | DRG 220 ==
LOC: 2ORMAIN 05:43 → 6ICU 12:02 → 6SEL 08-03 18:29
PROVIDERS: ADMIT Surgery; ATTEND Surgery
PROC: 02RF08Z Replacement of Aortic Valve with Zooplastic Tissue, Open Approach (ICD-10-PCS; 2016-08-01)
PROC: 5A1223Z Performance of Cardiac Pacing, Continuous (ICD-10-PCS; 2016-08-01)
PROC: B24BZZ4 Ultrasonography of Heart with Aorta, Transesophageal (ICD-10-PCS; 2016-08-01)
PROC: 5A1221Z Performance of Cardiac Output, Continuous (ICD-10-PCS; 2016-08-01)
PROC: 30233N0 Transfusion of Autologous Red Blood Cells into Peripheral Vein, Percutaneous Approach (ICD-10-PCS; principal; 2016-08-01 08:00)
DX: I35.2 Nonrheumatic aortic (valve) stenosis with insufficiency (principal); I42.0 Dilated cardiomyopathy; I48.1 Persistent atrial fibrillation; I48.2 Chronic atrial fibrillation; I11.0 Hypertensive heart disease with heart failure; I50.22 Chronic systolic (congestive) heart failure; I27.2 Other secondary pulmonary hypertension; J44.9 Chronic obstructive pulmonary disease, unspecified; T44.7X5A Adverse effect of beta-adrenoreceptor antagonists, initial encounter; E11.9 Type 2 diabetes mellitus without complications; E78.5 Hyperlipidemia, unspecified; G47.30 Sleep apnea, unspecified; F32.9 Major depressive disorder, single episode, unspecified; R60.0 Localized edema; I83.90 Asymptomatic varicose veins of unspecified lower extremity; M19.90 Unspecified osteoarthritis, unspecified site; Z79.84 Long term (current) use of oral hypoglycemic drugs; Z87.891 Personal history of nicotine dependence; Z79.82 Long term (current) use of aspirin; Z79.01 Long term (current) use of anticoagulants; Z79.891 Long term (current) use of opiate analgesic; Z79.899 Other long term (current) drug therapy; Z90.49 Acquired absence of other specified parts of digestive tract; Z98.42 Cataract extraction status, left eye; Z98.41 Cataract extraction status, right eye; Z82.49 Family history of ischemic heart disease and other diseases of the circulatory system
CPT/HCPCS: 71010; 71020; 80048; 80053; 82330; 82805; 83735; 83880; 84100; 85025; 85027; 85520; 85610; 85730; 86850; 86891; 86900; 86901; 86920; 88305; 88311; 94002; 94640; 94660

== ENCOUNTER → 2016-10-17 | Outpatient (CLI) | payer MEDICARE, OTHER ==
--- NOTE | 2016-10-17 14:31 | XR ---
EXAM TYPE: LUMBAR SPINE X RAY SERIES COMPARISON: NONE HISTORY: Low back pain TECHNIQUE: 4 views are submitted. FINDINGS: Alignment is anatomic. The pedicles are intact. The transverse processes are intact. There is no s pondylolysis or spondylolisthesis. Hypertrophic and degenerative changes of the spine noted. Vascula r calcification seen. Degenerative disc disease at all levels with most marked findings at L3-S1 with facet arthropathy. Diffuse osteopenia noted. IMPRESSION: 1. Multilevel mild to moderate degenerative disc disease.
== END | disposition home or self-care (01) ==
LOC: RADXRMAIN 13:50
PROVIDERS: ATTEND Internal Medicine
DX: M51.36 Other intervertebral disc degeneration, lumbar region (principal)
CPT/HCPCS: 72110

== ENCOUNTER 2016-11-23 09:54 | Inpatient (IN) | payer MEDICARE, OTHER ==
[2016-11-23] MEDS ORDERED: PANTOPRAZOLE 40 MG/10 ML VIAL IVP STA (10:07)
--- NOTE | 2016-11-23 10:09 | ED ---
General Adult HPI - General Chief complaint: GI Bleed Stated complaint: GI Bleed Time Seen by Provider: 11/23/16 09:54 Source: patient, EMS, RN notes reviewed Mode of arrival: EMS Limitations: no limitations - History of Present Illness Initial comments: This is a 65-year-old male who presents emergency Department complaining of nausea and vomiting last night he states he felt nauseous got up passed out woke up from being passed out and a bloody bowel movement and then vomited coffee ground emesis. Patient states today he continued with dark black and bloody stools he did not have any vomiting today. Patient denies any syncopal episode today. Patient denies shortness of breath. Patient states when he gets up though he feels extremely lightheaded. Patient is on Coumadin. Patient has had a valve replacement in June. Patient does have a history of atrial fibrillation as well. Patient currently while lying in bed states he is feeling a little weak but other than that has no symptoms. Patient denies headache. Patient denies numbness weakness. Patient denies abdominal pain. Patient no longer is nauseous at this time. - Related Data Home Medications Medication Instructions Recorded Confirmed ALPRAZolam [Xanax] 0.25 mg PO BID PRN 10/15/14 11/23/16 HYDROcodone/APAP 10-325MG [[place] 1 tab PO TID PRN 10/15/14 11/23/16 10-325] Lisinopril [Zestril] 2.5 mg PO QAM 10/15/14 11/23/16 Warfarin [Coumadin] 10 mg PO SUMOWEFR 10/15/14 11/23/16 metFORMIN HCL [Glucophage] 500 mg PO QAM 10/15/14 11/23/16 buPROPion HCL [Wellbutrin SR] 150 mg PO QAM 01/21/15 11/23/16 traMADol HCl [Ultram] 50 mg PO BID PRN 01/21/15 11/23/16 Ergocalciferol (Vitamin D2) 50,000 unit PO SA 04/01/15 11/23/16 [Drisdol] Docusate [Colace] 100 mg PO DAILY PRN 11/05/15 11/23/16 Ipratropium-Albuterol Nebulize 3 ml INHALATION RT-QID PRN 11/05/15 11/23/16 [Duoneb 0.5 mg-3 mg/3 ml Soln] Multivitamins, Thera [Multivitamin 1 tab PO DAILY 11/05/15 11/23/16 (formulary)] Warfarin Sodium 12.5 mg PO TUTHSA 11/05/15 11/23/16 Cyanocobalamin [Vitamin B-12] 1,000 mcg PO DAILY 07/21/16 11/23/16 Vitamin E (Dl,Tocopheryl Acet) 400 unit PO DAILY 07/21/16 11/23/16 [Vitamin E] FLUoxetine HCL [Sarafem] 60 mg PO DAILY 08/01/16 11/23/16 Atorvastatin [Lipitor] 40 mg PO HS 11/23/16 11/23/16 Previous Rx's Medication Instructions Recorded Aspirin 81 mg PO DAILY #30 chew 08/06/16 Carvedilol [Coreg] 3.125 mg PO BID-W/MEALS #60 tab 08/06/16 Furosemide [Lasix] 40 mg PO DAILY #30 tablet 08/06/16 Pantoprazole [Protonix] 40 mg PO AC-BRKFST #30 tablet. 08/06/16 Allergies Allergy/AdvReac Type Severity Reaction Status Date / Time No Known Allergies Allergy Verified 11/23/16 10:36 Review of Systems ROS Statement: Those systems with pertinent positive or pertinent negative responses have been documented in the HPI. ROS Other: All systems not noted in ROS Statement are negative. Past Medical History Past Medical History: Diabetes Mellitus, Hypertension Additional Past Medical History / Comment(s): irregular heartbeat, varicose veins, 2 herniated disk/degenerative disks, leaky heart valve, "blood clots in the heart" History of Any Multi-Drug Resistant Organisms: None Reported Past Surgical History: Appendectomy, Bowel Resection, Heart Catheterization, Orthopedic Surgery, Tonsillectomy Additional Past Surgical History / Comment(s): left shoulder surgery, surgery for sleep apnea, deana cataracts Past Anesthesia/Blood Transfusion Reactions: No Reported Reaction Past Psychological History: Depression Smoking Status: Former smoker Past Alcohol Use History: Occasional Past Drug Use History: None Reported - Past Family History Mother Family Medical History: No Reported History General Exam - General Exam Comments Initial Comments: GENERAL: Patient is well-developed and well-nourished. Patient is nontoxic and well- hydrated and is in no acute distress. ENT: Neck is soft and supple. No significant lymphadenopathy is noted. Oropharynx is clear. Moist mucous membranes. Neck has full range of motion without eliciting any pain. EYES: The sclera were anicteric and conjunctiva were pink and moist. Extraocular movements were intact and pupils were equal round and reactive to light. Eyelids were unremarkable. PULMONARY: Unlabored respirations. Good breath sounds bilaterally. No audible rales rhonchi or wheezing was noted. CARDIOVASCULAR: Patient has an irregular heartbeat. The capillary refill is excessively slow ABDOMEN: Soft and nontender with normal bowel sounds. No palpable organomegaly was noted. There is no palpable pulsatile mass. SKIN: Skin is clear with no lesions or rashes and otherwise unremarkable. NEUROLOGIC: Patient is alert and oriented x3. Cranial nerves II through XII are grossly intact. Motor and sensory are also intact. Normal speech, volume and content. Symmetrical smile. MUSCULOSKELETAL: Normal extremities with adequate strength and full range of motion. No lower extremity swelling or edema. No calf tenderness. LYMPHATICS: No significant lymphadenopathy is noted PSYCHIATRIC: Normal psychiatric evaluation. Limitations: no limitations Course Vital Signs 11/23/16 11/23/16 11/23/16 09:56 10:34 11:09 Temperature 98.2 F 100.1 F H Pulse Rate 75 78 74 Respiratory 20 16 16 Rate Blood Pressure 108/68 118/74 90/53 O2 Sat by Pulse 100 99 99 Oximetry 11/23/16 12:10 Temperature 99.0 F Pulse Rate 77 Respiratory 16 Rate Blood Pressure 108/56 O2 Sat by Pulse 99 Oximetry Medical Decision Making - Medical Decision Making EKG shows atrial fibrillation at 81 bpm. QRS is 90 QT interval 384 QTC is 446. Patient's EKG shows no ST segment elevation however there is slight ST segment depression in V5 and V6 as well as 1 and aVL. Sepsis criteria was met at 11:15 lactic acid was done blood cultures were done patient had a chest x-ray. Chest x-ray showed no acute abnormality. I spoke with Dr. Bernadine Colindres agreed to admit the patient admitted the patient I consult the GI. I also repeated CBCs. - Lab Data Result diagrams: 11/23/16 10:00 11/23/16 10:00 Lab Results 11/23/16 11/23/16 11/23/16 Range/Units 10:00 10:00 10:00 WBC 14.4 H (3.8-10.6) k/uL RBC 3.87 L (4.30-5.90) m/uL Hgb 11.6 L (13.0-17.5) gm/dL Hct 36.0 L (39.0-53.0) % MCV 92.9 (80.0-100.0) fL MCH 29.9 (25.0-35.0) pg MCHC 32.2 (31.0-37.0) g/dL RDW 16.9 H (11.5-15.5) % Plt Count 258 (150-450) k/uL Neutrophils % 86 % Lymphocytes % 8 % Monocytes % 6 % Eosinophils % 0 % Basophils % 0 % Neutrophils # 12.3 H (1.3-7.7) k/uL Lymphocytes # 1.1 (1.0-4.8) k/uL Monocytes # 0.8 (0-1.0) k/uL Eosinophils # 0.0 (0-0.7) k/uL Basophils # 0.0 (0-0.2) k/uL Anisocytosis Slight PT (9.0-12.0) sec INR (<1.1) APTT (22.0-30.0) sec Sodium 140 (137-145) mmol/L Potassium 5.2 H (3.5-5.1) mmol/L Chloride 106 (98-107) mmol/L Carbon Dioxide 24 (22-30) mmol/L Anion Gap 10 mmol/L BUN 53 H (9-20) mg/dL Creatinine 0.68 (0.66-1.25) mg/dL Est GFR (MDRD) Af Amer >60 (>60 ml/min/1.73 sqM) Est GFR (MDRD) Non-Af >60 (>60 ml/min/1.73 sqM) Glucose 172 H (74-99) mg/dL Plasma Lactic Acid Epi (0.7-2.0) mmol/L Calcium 8.8 (8.4-10.2) mg/dL Total Bilirubin 0.7 (0.2-1.3) mg/dL AST 28 (17-59) U/L ALT 37 (21-72) U/L Alkaline Phosphatase 72 (38-126) U/L Total Creatine Kinase 106 (55-170) U/L CK-MB (CK-2) 2.7 H* (0.0-2.4) ng/mL CK-MB (CK-2) Rel Index 2.5 Troponin I 0.014 (0.000-0.034) ng/mL Total Protein 6.4 (6.3-8.2) g/dL Albumin 3.5 (3.5-5.0) g/dL Blood Type Blood Type Recheck Antibody Screen Spec Expiration Date 11/23/16 11/23/16 11/23/16 Range/Units 10:00 10:00 11:23 WBC (3.8-10.6) k/uL RBC (4.30-5.90) m/uL Hgb (13.0-17.5) gm/dL Hct (39.0-53.0) % MCV (80.0-100.0) fL MCH (25.0-35.0) pg MCHC (31.0-37.0) g/dL RDW (11.5-15.5) % Plt Count (150-450) k/uL Neutrophils % % Lymphocytes % % Monocytes % % Eosinophils % % Basophils % % Neutrophils # (1.3-7.7) k/uL Lymphocytes # (1.0-4.8) k/uL Monocytes # (0-1.0) k/uL Eosinophils # (0-0.7) k/uL Basophils # (0-0.2) k/uL Anisocytosis PT 14.8 H (9.0-12.0) sec INR 1.5 (<1.1) APTT 25.0 (22.0-30.0) sec Sodium (137-145) mmol/L Potassium (3.5-5.1) mmol/L Chloride (98-107) mmol/L Carbon Dioxide (22-30) mmol/L Anion Gap mmol/L BUN (9-20) mg/dL Creatinine (0.66-1.25) mg/dL Est GFR (MDRD) Af Amer (>60 ml/min/1.73 sqM) Est GFR (MDRD) Non-Af (>60 ml/min/1.73 sqM) Glucose (74-99) mg/dL Plasma Lactic Acid Epi 1.2 (0.7-2.0) mmol/L Calcium (8.4-10.2) mg/dL Total Bilirubin (0.2-1.3) mg/dL AST (17-59) U/L ALT (21-72) U/L Alkaline Phosphatase (38-126) U/L Total Creatine Kinase (55-170) U/L CK-MB (CK-2) (0.0-2.4) ng/mL CK-MB (CK-2) Rel Index Troponin I (0.000-0.034) ng/mL Total Protein (6.3-8.2) g/dL Albumin (3.5-5.0) g/dL Blood Type O Positive Blood Type Recheck No Antibody Screen NEGATIVE Spec Expiration Date 11/26/20162299 Disposition Clinical Impression: GI bleed Disposition: ADMITTED IP TO THIS HOSP Referrals: Tony Colindres MD [Primary Care Provider] - 1-2 days Time of Disposition: 12:52
[2016-11-23 10:19] LABS: Anisocytosis Slight; Basophils % (A) 0 %; CH 29.8; CHCM 32.2; Eosinophils % (A) 0 %; HDW 2.38; HGB 11.6 gm/dL (13.0-17.5); Luc # (Auto) 0.14; Luc % (Auto) 1; Lymphocytes # (A) 1.1 k/uL (1.0-4.8); Lymphocytes % (A) 8 %; MCH 29.9 pg (25.0-35.0); MCHC 32.2 g/dL (31.0-37.0); MCV 92.9 fL (80.0-100.0); Mean Platelet Volume 7.3; Monocytes # (A) 0.8 k/uL (0-1.0); Monocytes % (A) 6 %; Neutrophils # (A) 12.3 k/uL (1.3-7.7); Neutrophils % (A) 86 %; RBC 3.87 m/uL (4.30-5.90); RDW 16.9 % (11.5-15.5); WBC 14.4 k/uL (3.8-10.6); WBC (Perox) 14.63
[2016-11-23] MEDS ORDERED: ONDANSETRON 4 MG/2 ML VIAL IVP STA (10:20)
[2016-11-23 10:29] LABS: INR 1.5 (<1.1); Prothrombin Time 14.8 sec (9.0-12.0)
[2016-11-23 10:30] LABS: ALT 37 U/L (21-72); AST 28 U/L (17-59); Alkaline Phosphatase 72 U/L (38-126); Anion Gap 10 mmol/L; Blood Urea Nitrogen 53 mg/dL (9-20); Calcium 8.8 mg/dL (8.4-10.2); Carbon Dioxide 24 mmol/L (22-30); Chloride 106 mmol/L (98-107); Glucose 172 mg/dL (74-99); Non-African American GFR(MDRD) >60 (>60 ml/min/1.73 sqM); Potassium 5.2 mmol/L (3.5-5.1); Sodium 140 mmol/L (137-145); Total Bilirubin 0.7 mg/dL (0.2-1.3); Total Protein 6.4 g/dL (6.3-8.2)
[2016-11-23 10:56] LABS: Troponin I 0.014 ng/mL (0.000-0.034)
[2016-11-23 11:05] LABS: Creatine Kinase MB 2.7 ng/mL (0.0-2.4)
--- NOTE | 2016-11-23 12:34 | XR ---
EXAMINATION TYPE: XR chest 2V DATE OF EXAM: 11/23/2016 COMPARISON: Prior chest x-ray 08/04/2016 HISTORY: Difficulty breathing TECHNIQUE: Frontal and lateral views of the chest are obtained on 3 images. FINDINGS: There is no focal air space opacity, pleural effusion, or pneumothorax seen. The cardiac silhouette size is stable and enlarged. There is prominence of interstitium, central vascularity. Im provement in aeration at the posterior lung bases. There are prominent lung volume suggesting COPD. P ostop changes present, patient is post median sternotomy, aortic valve replacement, proximal left hum eral fracture open reduction internal fixation. The osseous structures are intact. IMPRESSION: Stable cardiomegaly, underlying COPD. Follow-up as indicated.
[2016-11-23] MEDS ORDERED: SODIUM CHLORIDE 0.9% 1,000 ML IV ONE (12:52)
[2016-11-23 13:20] LABS: Appearance,Urine Clear (Clear); Bilirubin,Urine Negative (Negative); Glucose,Urine (UA) Negative (Negative); Ketones,Urine Negative (Negative); Leukocyte Esterase,Urine Negative (Negative); Nitrite,Urine Negative (Negative); Protein,Urine Trace (Negative); Specific Gravity,Urine 1.021 (1.001-1.035); UA Billing (MACRO vs. MICRO) CHEM; Urobilinogen,Urine <2.0 mg/dL (<2.0)
[2016-11-23 15:03] VITALS: BMI 43.0
[2016-11-23 17:11] LABS: Glucose,Whole Blood 145 mg/dL (75-99)
[2016-11-23] MEDS: CARVEDILOL 3.125 MG TAB PO SCH (17:44)
[2016-11-23] MEDS: INSULIN LISPRO (humaLOG) 300 UNIT/3 ML VIAL SQ SCH ×2 (17:45→20:30)
[2016-11-23 19:09] LABS: Hemoglobin A1C 6.1 % (4.2-6.1)
[2016-11-23 19:21] LABS: Anisocytosis Slight; Basophils % (A) 0 %; CH 29.1; CHCM 32.2; Eosinophils % (A) 0 %; HCT 30.8 % (39.0-53.0); HDW 2.43; HGB 10.3 gm/dL (13.0-17.5); Luc # (Auto) 0.19; Luc % (Auto) 2; Lymphocytes # (A) 1.5 k/uL (1.0-4.8); Lymphocytes % (A) 14 %; MCH 30.3 pg (25.0-35.0); MCHC 33.4 g/dL (31.0-37.0); MCV 90.7 fL (80.0-100.0); Mean Platelet Volume 7.5; Monocytes # (A) 0.9 k/uL (0-1.0); Monocytes % (A) 8 %; Neutrophils # (A) 8.7 k/uL (1.3-7.7); Neutrophils % (A) 77 %; RDW 16.9 % (11.5-15.5); WBC 11.3 k/uL (3.8-10.6); WBC (Perox) 12.09
--- NOTE | 2016-11-23 19:58 | P.HPIM ---
History of Present Illness H&P Date: 11/23/16 Chief Complaint: Gastrointestinal bleeding Patient is a 65-year-old male well-known to my practice who presented to [facility] emergency room with a chief complaint of gastrointestinal bleeding. Patient states that in the middle of last night he went to the bathroom he had a bowel movement that was bloody subsequence E he passed out, for few seconds, he regained consciousness spontaneously and had an episode of vomiting of brown coffee-ground material. Patient went back to sleep he woke up this morning and had similar episodes of bowel movement with rectal bleeding no vomiting at this time. He decided to come to emergency room. He was evaluated in the emergency room and admitted to telemetry floor. Gastroenterology consultation was requested. Patient is followed by cardiology he is maintained on Coumadin his INR was recently 1.1 and his dose of Coumadin was increased. His INR on presentation to emergency room was 1.5 Past Medical History Past Medical History: Diabetes Mellitus, Hypertension Additional Past Medical History / Comment(s): irregular heartbeat, varicose veins, 2 herniated disk/degenerative disks, leaky heart valve, "blood clots in the heart" History of Any Multi-Drug Resistant Organisms: None Reported Past Surgical History: Appendectomy, Bowel Resection, Heart Catheterization, Orthopedic Surgery, Tonsillectomy Additional Past Surgical History / Comment(s): left shoulder surgery, surgery for sleep apnea, deana cataracts Past Anesthesia/Blood Transfusion Reactions: No Reported Reaction Past Psychological History: Depression Smoking Status: Former smoker Past Alcohol Use History: Occasional Past Drug Use History: None Reported - Past Family History Mother Family Medical History: No Reported History Medications and Allergies Home Medications Medication Instructions Recorded Confirmed Type ALPRAZolam [Xanax] 0.25 mg PO BID PRN 10/15/14 11/23/16 History HYDROcodone/APAP 10-325MG [[place] 1 tab PO TID PRN 10/15/14 11/23/16 History 10-325] Lisinopril [Zestril] 2.5 mg PO QAM 10/15/14 11/23/16 History Warfarin [Coumadin] 10 mg PO SUMOWEFR 10/15/14 11/23/16 History metFORMIN HCL [Glucophage] 500 mg PO QAM 10/15/14 11/23/16 History buPROPion HCL [Wellbutrin SR] 150 mg PO QAM 08/19/15 06/21/17 History traMADol HCl [Ultram] 50 mg PO BID PRN 01/21/15 11/23/16 History Ergocalciferol (Vitamin D2) 50,000 unit PO SA 04/01/15 11/23/16 History [Drisdol] Docusate [Colace] 100 mg PO DAILY PRN 11/05/15 11/23/16 History Ipratropium-Albuterol Nebulize 3 ml INHALATION RT-QID PRN 11/05/15 11/23/16 History [Duoneb 0.5 mg-3 mg/3 ml Soln] Multivitamins, Thera [Multivitamin 1 tab PO DAILY 11/05/15 11/23/16 History (formulary)] Warfarin Sodium 12.5 mg PO TUTHSA 11/05/15 11/23/16 History Cyanocobalamin [Vitamin B-12] 1,000 mcg PO DAILY 07/21/16 11/23/16 History Vitamin E (Dl,Tocopheryl Acet) 400 unit PO DAILY 07/21/16 11/23/16 History [Vitamin E] FLUoxetine HCL [Sarafem] 60 mg PO DAILY 08/01/16 11/23/16 History Atorvastatin [Lipitor] 40 mg PO HS 11/23/16 11/23/16 History Allergies Allergy/AdvReac Type Severity Reaction Status Date / Time No Known Allergies Allergy Verified 11/23/16 10:36 Physical Exam Vitals: Vital Signs Temp Pulse Pulse Resp BP BP Pulse Ox 11/23/16 16:00 97.7 F 90 18 126/88 100 11/23/16 13:10 99.5 F 80 18 138/85 99 11/23/16 12:10 99.0 F 77 16 108/56 99 11/23/16 11:09 100.1 F H 74 16 90/53 99 11/23/16 10:34 78 16 118/74 99 11/23/16 09:56 98.2 F 75 20 108/68 100 Intake and Output 11/23/16 11/23/16 11/23/16 06:59 14:59 22:59 Intake Total 850 240 Output Total 200 Balance 650 240 Intake: Intake, IV Titration 600 Amount Sodium Chloride 0.9% 1, 600 000 ml @ 75 mls/hr IV . [id number] ONE Rx#:[id number] Oral 250 240 Output: Urine 200 Straight 200 Other: Voiding Method Urinal Weight 131.995 kg Patient Weight 11/24/16 06:59 Weight 131.995 kg In general patient is alert and oriented 3 in no apparent distress HEENT head normocephalic and atraumatic Neck is supple no JVD no goiter no lymphadenopathy Chest exam reveals a clear respiratory sounds no crackles no wheezing Cardiac exam reveals regular heart sounds S1 and S2 no gallops no murmurs Abdomen is soft nontender no organomegaly with normal bowel sounds Extremity exam reveals no edema no cyanosis or clubbing Results CBC & Chem 7: 11/23/16 19:01 11/23/16 10:00 Labs: Abnormal Lab Results - Last 24 Hours (Table) 11/23/16 11/23/16 11/23/16 Range/Units 10:00 10:00 10:00 WBC 14.4 H (3.8-10.6) k/uL RBC 3.87 L (4.30-5.90) m/uL Hgb 11.6 L (13.0-17.5) gm/dL Hct 36.0 L (39.0-53.0) % RDW 16.9 H (11.5-15.5) % Neutrophils # 12.3 H (1.3-7.7) k/uL PT (9.0-12.0) sec Potassium 5.2 H (3.5-5.1) mmol/L BUN 53 H (9-20) mg/dL Glucose 172 H (74-99) mg/dL POC Glucose (mg/dL) (75-99) mg/dL CK-MB (CK-2) 2.7 H* (0.0-2.4) ng/mL Urine Protein (Negative) 11/23/16 11/23/16 11/23/16 Range/Units 10:00 13:04 17:07 WBC (3.8-10.6) k/uL RBC (4.30-5.90) m/uL Hgb (13.0-17.5) gm/dL Hct (39.0-53.0) % RDW (11.5-15.5) % Neutrophils # (1.3-7.7) k/uL PT 14.8 H (9.0-12.0) sec Potassium (3.5-5.1) mmol/L BUN (9-20) mg/dL Glucose (74-99) mg/dL POC Glucose (mg/dL) 145 H (75-99) mg/dL CK-MB (CK-2) (0.0-2.4) ng/mL Urine Protein Trace H (Negative) 11/23/16 Range/Units 19:01 WBC 11.3 H (3.8-10.6) k/uL RBC 3.40 L (4.30-5.90) m/uL Hgb 10.3 L (13.0-17.5) gm/dL Hct 30.8 L (39.0-53.0) % RDW 16.9 H (11.5-15.5) % Neutrophils # 8.7 H (1.3-7.7) k/uL PT (9.0-12.0) sec Potassium (3.5-5.1) mmol/L BUN (9-20) mg/dL Glucose (74-99) mg/dL POC Glucose (mg/dL) (75-99) mg/dL CK-MB (CK-2) (0.0-2.4) ng/mL Urine Protein (Negative) Thrombosis Risk Factor Assmnt - Choose All That Apply Any of the Below Risk Factors Present?: Yes Each Factor Represents 1 point: Acute CO, Obesity (BMI >25), Varicose veins Each Risk Factor Represents 2 Points: Age 61-74 years Thrombosis Risk Factor Assessment Total Risk Factor Score: 5 Thrombosis Risk Factor Assessment Level: High Risk Assessment and Plan Plan: #1 gastrointestinal bleeding, will monitor hemoglobin closely, will proceed was red blood transfusion if necessary GI consultation has been requested. #2 chronic atrial fibrillation maintained on Coumadin however INR was subtherapeutic on presentation #3 recent aortic valve replacement #4 chronic history of cardiomyopathy without any cardiac symptoms at this time #5 underlying history of chronic obstructive pulmonary disease #6 hypertension well-controlled on current medication At this time awaiting intervention with gastroenterology continue close monitoring of CBC Will follow in a.m.
[2016-11-23 20:08] LABS: Glucose,Whole Blood 140 mg/dL (75-99)
[2016-11-23] MEDS: ATORVASTATIN 40 MG TAB PO SCH (20:31)
[2016-11-23 23:02] LABS: Anisocytosis Slight; Basophils % (A) 0 %; CH 30.4; CHCM 33.5; Eosinophils # (A) 0.1 k/uL (0-0.7); Eosinophils % (A) 1 %; HCT 30.2 % (39.0-53.0); HDW 2.43; HGB 9.7 gm/dL (13.0-17.5); Luc # (Auto) 0.18; Luc % (Auto) 2; Lymphocytes # (A) 1.6 k/uL (1.0-4.8); Lymphocytes % (A) 13 %; MCH 29.3 pg (25.0-35.0); MCHC 32.2 g/dL (31.0-37.0); Mean Platelet Volume 7.4; Monocytes # (A) 0.8 k/uL (0-1.0); Monocytes % (A) 7 %; Neutrophils # (A) 9.1 k/uL (1.3-7.7); Neutrophils % (A) 77 %; RBC 3.32 m/uL (4.30-5.90); RDW 17.3 % (11.5-15.5); WBC 11.9 k/uL (3.8-10.6); WBC (Perox) 11.56
[2016-11-24 06:01] LABS: Glucose,Whole Blood 152 mg/dL (75-99)
[2016-11-24] MEDS: CARVEDILOL 3.125 MG TAB PO SCH ×2 (06:35→17:37)
[2016-11-24] MEDS: INSULIN LISPRO (humaLOG) 300 UNIT/3 ML VIAL SQ SCH ×4 (06:37→21:00)
[2016-11-24 07:06] LABS: INR 1.6 (<1.1); Prothrombin Time 15.8 sec (9.0-12.0)
[2016-11-24] MEDS ORDERED: traMADol 50 MG TAB PO PRN (08:19)
[2016-11-24] MEDS ORDERED: ALPRAZolam 0.25 MG TAB PO PRN (08:19)
[2016-11-24] MEDS ORDERED: IPRATROPIUM-ALBUTEROL 3 ML NEB INHALATION PRN (08:19)
[2016-11-24] MEDS: FLUoxetine HCL 20 MG CAP PO SCH (08:48)
[2016-11-24] MEDS: CYANOCOBALAMIN 500 MCG TAB PO SCH (08:48)
[2016-11-24] MEDS: buPROPion SR 150 MG TABLET.ER PO SCH (08:48)
[2016-11-24] MEDS: LISINOPRIL 2.5 MG TAB PO SCH (08:49)
[2016-11-24] MEDS: FUROSEMIDE 40 MG TAB PO SCH (08:49)
[2016-11-24] MEDS: PANTOPRAZOLE 40 MG/10 ML VIAL IVP SCH (08:49)
[2016-11-24 08:50] LABS: ALT 35 U/L (21-72); AST 27 U/L (17-59); Alkaline Phosphatase 59 U/L (38-126); Anion Gap 9 mmol/L; Blood Urea Nitrogen 39 mg/dL (9-20); Calcium 8.3 mg/dL (8.4-10.2); Carbon Dioxide 23 mmol/L (22-30); Chloride 109 mmol/L (98-107); Glucose 122 mg/dL (74-99); Non-African American GFR(MDRD) >60 (>60 ml/min/1.73 sqM); Potassium 3.9 mmol/L (3.5-5.1); Sodium 141 mmol/L (137-145); Total Bilirubin 0.8 mg/dL (0.2-1.3); Total Protein 5.7 g/dL (6.3-8.2)
[2016-11-24] MEDS ORDERED: VITAMIN E (DL,TOCOPHERYL ACET) 400 UNIT CAP PO SCH (09:00)
[2016-11-24 09:15] LABS: Anisocytosis Slight; CH 29.3; HDW 2.47; HGB 9.8 gm/dL (13.0-17.5); MCH 31.2 pg (25.0-35.0); MCHC 34.9 g/dL (31.0-37.0); MCV 89.3 fL (80.0-100.0); Mean Platelet Volume 9.5; RBC 3.13 m/uL (4.30-5.90); RDW 16.9 % (11.5-15.5); WBC 11.4 k/uL (3.8-10.6)
[2016-11-24] MEDS ORDERED: BISACODYL 5 MG TABLET.DR PO STA (09:40)
--- NOTE | 2016-11-24 11:08 | P.CONS ---
History of Present Illness - Reason for Consult Consult date: 11/24/16 GI bleed Requesting physician: Tony Colindres - History of Present Illness 65-year-old gentleman with a past medical history of diabetes, hypertension, depression, chronic atrial fibrillation with Coumadin monitoring, recent bioprosthetic aVR, COPD, and obesity. Presents with acute onset of coffee- ground emesis and rectal bleeding 1 day. Denies abdominal pain. No fever. Rectal bleeding described as dark red black liquid. No history of peptic ulcer disease. No alcohol. No NSAIDs. Minimal abdominal discomfort. History of colonoscopy or EGD. Bowel resection for obstruction as an . Admission hemoglobin 11.6 decreased to 9.7 presently 9.8. MCV 89. Platelet 177. INR 1.5 on admission presently 1.6. BUN 53. Creatinine 0.6. Review of Systems Constitutional: Denies fever, chills, sweats, weight gain, or loss. HEENT: Negative for migraines, blurred vision or loss, earaches, drainage, tinnitus, oral mucosal lesions, dysphagia, or odynophagia. Cardiac: Aortic stenosis/aVR. Atrial fibrillation. Hypertension. Negative for chest pain, arrhythmias, or palpitation. Respiratory: Negative for shortness of breath, hemoptysis, cough, or sputum production. Gastrointestinal: See HPI for pertinent findings. Genitourinary: Negative for hematuria, urgency, frequency, polyuria, dysuria, or penile discharge. Musculoskeletal: Negative for muscle aches, swelling, arthritis, and arthralgias. Neurologic: Negative for stroke or TIA. Endocrine: Diabetes. Negative for thyroid problems. Skin: Negative for rash or itching. Psychiatric: Negative history for depression and anxiety All systems: negative (The HPI) Past Medical History Past Medical History: Diabetes Mellitus, Hypertension Additional Past Medical History / Comment(s): irregular heartbeat, varicose veins, 2 herniated disk/degenerative disks, leaky heart valve, "blood clots in the heart" History of Any Multi-Drug Resistant Organisms: None Reported Past Surgical History: Appendectomy, Bowel Resection, Heart Catheterization, Orthopedic Surgery, Tonsillectomy Additional Past Surgical History / Comment(s): left shoulder surgery, surgery for sleep apnea, deana cataracts Past Anesthesia/Blood Transfusion Reactions: No Reported Reaction Past Psychological History: Depression Smoking Status: Former smoker Past Alcohol Use History: Occasional Past Drug Use History: None Reported - Past Family History Mother Family Medical History: No Reported History Medications and Allergies Home Medications Medication Instructions Recorded Confirmed Type ALPRAZolam [Xanax] 0.25 mg PO BID PRN 10/15/14 11/23/16 History HYDROcodone/APAP 10-325MG [[place] 1 tab PO TID PRN 10/15/14 11/23/16 History 10-325] Lisinopril [Zestril] 2.5 mg PO QAM 10/15/14 11/23/16 History Warfarin [Coumadin] 10 mg PO SUMOWEFR 10/15/14 11/23/16 History metFORMIN HCL [Glucophage] 500 mg PO QAM 10/15/14 11/23/16 History buPROPion HCL [Wellbutrin SR] 150 mg PO QAM 01/21/15 11/23/16 History traMADol HCl [Ultram] 50 mg PO BID PRN 01/21/15 11/23/16 History Ergocalciferol (Vitamin D2) 50,000 unit PO SA 04/01/15 11/23/16 History [Drisdol] Docusate [Colace] 100 mg PO DAILY PRN 11/05/15 11/23/16 History Ipratropium-Albuterol Nebulize 3 ml INHALATION RT-QID PRN 11/05/15 11/23/16 History [Duoneb 0.5 mg-3 mg/3 ml Soln] Multivitamins, Thera [Multivitamin 1 tab PO DAILY 11/05/15 11/23/16 History (formulary)] Warfarin Sodium 12.5 mg PO TUTHSA 11/05/15 11/23/16 History Cyanocobalamin [Vitamin B-12] 1,000 mcg PO DAILY 07/21/16 11/23/16 History Vitamin E (Dl,Tocopheryl Acet) 400 unit PO DAILY 07/21/16 11/23/16 History [Vitamin E] FLUoxetine HCL [Sarafem] 60 mg PO DAILY 08/01/16 11/23/16 History Atorvastatin [Lipitor] 40 mg PO HS 11/23/16 11/23/16 History Allergies Allergy/AdvReac Type Severity Reaction Status Date / Time No Known Allergies Allergy Verified 11/23/16 10:36 Physical Exam Vitals: Vital Signs Temp Pulse Pulse Resp BP BP Pulse Ox 11/24/16 08:00 97.7 F 70 18 106/68 97 11/24/16 04:00 98.4 F 75 16 149/79 98 11/23/16 23:56 72 11/23/16 23:34 72 18 116/77 99 11/23/16 20:00 98.1 F 83 16 125/81 98 11/23/16 16:00 97.7 F 90 18 126/88 100 11/23/16 13:10 99.5 F 80 18 138/85 99 11/23/16 12:10 99.0 F 77 16 108/56 99 11/23/16 11:09 100.1 F H 74 16 90/53 99 11/23/16 10:34 78 16 118/74 99 11/23/16 09:56 98.2 F 75 20 108/68 100 Intake and Output 11/23/16 11/24/16 11/24/16 22:59 06:59 14:59 Intake Total 240 Balance 240 Intake: Oral 240 Other: Voiding Method Urinal # Voids 1 1 # Bowel Movements 1 Weight 128.1 kg General appearance: The patient is alert, oriented, in no acute distress. HET: Head is normocephalic and atraumatic. Pupils are equal and reactive. Oropharynx is clear without lesions. Neck: Supple without lymphadenopathy. Trachea midline. Heart: S1 S2. Lungs: No crackles or wheezes are heard. Abdomen: Soft, nontender, nondistended with bowel sounds. No peritoneal signs. No palpable organomegaly or masses. Extremities: Normal skin color and turgor. No cyanosis, rash, ulceration, clubbing, or edema. Radial and pedal pulses are 2/4 bilaterally. Neurological: No focal deficits. Strength and sensation are grossly intact. Results CBC & Chem 7: 11/24/16 05:44 11/24/16 05:44 Labs: Abnormal Lab Results - Last 24 Hours (Table) 11/23/16 11/23/16 11/23/16 Range/Units 10:00 10:00 10:00 WBC 14.4 H (3.8-10.6) k/uL RBC 3.87 L (4.30-5.90) m/uL Hgb 11.6 L (13.0-17.5) gm/dL Hct 36.0 L (39.0-53.0) % RDW 16.9 H (11.5-15.5) % Neutrophils # 12.3 H (1.3-7.7) k/uL PT (9.0-12.0) sec Potassium 5.2 H (3.5-5.1) mmol/L Chloride (98-107) mmol/L BUN 53 H (9-20) mg/dL Creatinine (0.66-1.25) mg/dL Glucose 172 H (74-99) mg/dL POC Glucose (mg/dL) (75-99) mg/dL Calcium (8.4-10.2) mg/dL CK-MB (CK-2) 2.7 H* (0.0-2.4) ng/mL Total Protein (6.3-8.2) g/dL Albumin (3.5-5.0) g/dL Urine Protein (Negative) 11/23/16 11/23/16 11/23/16 Range/Units 10:00 13:04 17:07 WBC (3.8-10.6) k/uL RBC (4.30-5.90) m/uL Hgb (13.0-17.5) gm/dL Hct (39.0-53.0) % RDW (11.5-15.5) % Neutrophils # (1.3-7.7) k/uL PT 14.8 H (9.0-12.0) sec Potassium (3.5-5.1) mmol/L Chloride (98-107) mmol/L BUN (9-20) mg/dL Creatinine (0.66-1.25) mg/dL Glucose (74-99) mg/dL POC Glucose (mg/dL) 145 H (75-99) mg/dL Calcium (8.4-10.2) mg/dL CK-MB (CK-2) (0.0-2.4) ng/mL Total Protein (6.3-8.2) g/dL Albumin (3.5-5.0) g/dL Urine Protein Trace H (Negative) 11/23/16 11/23/16 11/23/16 Range/Units 19:01 20:06 22:38 WBC 11.3 H 11.9 H (3.8-10.6) k/uL RBC 3.40 L 3.32 L (4.30-5.90) m/uL Hgb 10.3 L 9.7 L (13.0-17.5) gm/dL Hct 30.8 L 30.2 L (39.0-53.0) % RDW 16.9 H 17.3 H (11.5-15.5) % Neutrophils # 8.7 H 9.1 H (1.3-7.7) k/uL PT (9.0-12.0) sec Potassium (3.5-5.1) mmol/L Chloride (98-107) mmol/L BUN (9-20) mg/dL Creatinine (0.66-1.25) mg/dL Glucose (74-99) mg/dL POC Glucose (mg/dL) 140 H (75-99) mg/dL Calcium (8.4-10.2) mg/dL CK-MB (CK-2) (0.0-2.4) ng/mL Total Protein (6.3-8.2) g/dL Albumin (3.5-5.0) g/dL Urine Protein (Negative) 11/24/16 11/24/16 11/24/16 Range/Units 05:44 05:44 05:44 WBC 11.4 H (3.8-10.6) k/uL RBC 3.13 L (4.30-5.90) m/uL Hgb 9.8 L (13.0-17.5) gm/dL Hct 28.0 L (39.0-53.0) % RDW 16.9 H (11.5-15.5) % Neutrophils # (1.3-7.7) k/uL PT 15.8 H (9.0-12.0) sec Potassium (3.5-5.1) mmol/L Chloride 109 H (98-107) mmol/L BUN 39 H (9-20) mg/dL Creatinine 0.64 L (0.66-1.25) mg/dL Glucose 122 H (74-99) mg/dL POC Glucose (mg/dL) (75-99) mg/dL Calcium 8.3 L (8.4-10.2) mg/dL CK-MB (CK-2) (0.0-2.4) ng/mL Total Protein 5.7 L (6.3-8.2) g/dL Albumin 3.1 L (3.5-5.0) g/dL Urine Protein (Negative) 11/24/16 Range/Units 06:00 WBC (3.8-10.6) k/uL RBC (4.30-5.90) m/uL Hgb (13.0-17.5) gm/dL Hct (39.0-53.0) % RDW (11.5-15.5) % Neutrophils # (1.3-7.7) k/uL PT (9.0-12.0) sec Potassium (3.5-5.1) mmol/L Chloride (98-107) mmol/L BUN (9-20) mg/dL Creatinine (0.66-1.25) mg/dL Glucose (74-99) mg/dL POC Glucose (mg/dL) 152 H (75-99) mg/dL Calcium (8.4-10.2) mg/dL CK-MB (CK-2) (0.0-2.4) ng/mL Total Protein (6.3-8.2) g/dL Albumin (3.5-5.0) g/dL Urine Protein (Negative) Assessment and Plan (1) GI bleed Narrative/Plan: Possible peptic ulcer disease possible colonic source possible peptic ulcer disease possible colonic source Status: Acute (2) Acute blood loss anemia Status: Acute (3) Coffee ground emesis Status: Acute (4) Rectal bleeding Status: Acute (5) Chronic atrial fibrillation Status: Chronic (6) Warfarin-induced coagulopathy Status: Acute (7) S/P AVR (aortic valve replacement) Status: Chronic Plan: 1. Protonix 40 mg IV daily. 2. CBC monitoring. 3. EGD colonoscopy evaluation tomorrow afternoon. 4. Hold Coumadin. Repeat INR in a.m. 5. Liquid diet. Nothing by mouth after clear liquid breakfast. The portuguese tutor has discussed the risks, benefits and alternative therapies for the above-mentioned procedure and for both sedation/analgesia as well as necessary blood product administration, if indicated, as they pertain to this patient. The patient has indicated understanding and acceptance of the risks and procedures discussed. Thank you for this kind referral and the opportunity to participate in the care of your patient. This consultation was discussed with Dr. Victoria. The impression and plan of care have been directed as dictated.
[2016-11-24] MEDS: MULTIVITAMINS, THERA 1 EACH TAB PO SCH (11:31)
[2016-11-24 12:27] LABS: Glucose,Whole Blood 145 mg/dL (75-99)
--- NOTE | 2016-11-24 12:50 | P.PN ---
Subjective Patient is a 65-year-old male well-known to my practice who presented to [facility] emergency room with a chief complaint of gastrointestinal bleeding. Patient reports vomiting coffee-ground material as well as having black stools and some bright red blood in his stools. Patient also has a history of atrial fibrillation which is on the Coumadin. Patient is scheduled for EGD and colonoscopy tomorrow. Hemoglobin 9.7 today. He had some bradycardia with heart rate into the 40s. He is on Coreg. Cardiology has been consulted. He's had no further episodes of vomiting. He did have one black stool. Objective - Vital Signs Vital signs: Vital Signs Temp 98.5 F 11/24/16 11:20 Pulse 68 11/24/16 11:20 Resp 18 11/24/16 11:20 BP 105/68 11/24/16 11:20 Pulse Ox 98 11/24/16 11:20 Intake & Output 11/23/16 11/24/16 11/24/16 18:59 06:59 18:59 Intake Total 1090 Output Total 200 275 Balance 890 -275 Weight 131.995 kg 128.1 kg Intake: Intake, IV Titration 600 Amount Sodium Chloride 0.9% 1, 600 000 ml @ 75 mls/hr IV . [id number] ONE Rx#:[id number] Oral 490 Output: Urine 200 275 Straight 200 Other: Voiding Method Urinal Urinal # Voids 1 # Bowel Movements 1 1 - Exam Head normocephalic Neck supple Lungs clear to auscultation bilaterally no wheezing or crackles Heart regular rate and rhythm S1-S2, no rub or gallop positive murmur Abdomen is soft nontender nondistended positive bowel sounds no hepatosplenomegaly Extremities no edema Neuro alert and orientated to 3 - Labs CBC & Chem 7: 11/24/16 05:44 11/24/16 05:44 Labs: Abnormal Lab Results - Last 24 Hours (Table) 11/23/16 11/23/16 11/23/16 Range/Units 13:04 17:07 19:01 WBC 11.3 H (3.8-10.6) k/uL RBC 3.40 L (4.30-5.90) m/uL Hgb 10.3 L (13.0-17.5) gm/dL Hct 30.8 L (39.0-53.0) % RDW 16.9 H (11.5-15.5) % Neutrophils # 8.7 H (1.3-7.7) k/uL PT (9.0-12.0) sec Chloride (98-107) mmol/L BUN (9-20) mg/dL Creatinine (0.66-1.25) mg/dL Glucose (74-99) mg/dL POC Glucose (mg/dL) 145 H (75-99) mg/dL Calcium (8.4-10.2) mg/dL Total Protein (6.3-8.2) g/dL Albumin (3.5-5.0) g/dL Urine Protein Trace H (Negative) 11/23/16 11/23/16 11/24/16 Range/Units 20:06 22:38 05:44 WBC 11.9 H 11.4 H (3.8-10.6) k/uL RBC 3.32 L 3.13 L (4.30-5.90) m/uL Hgb 9.7 L 9.8 L (13.0-17.5) gm/dL Hct 30.2 L 28.0 L (39.0-53.0) % RDW 17.3 H 16.9 H (11.5-15.5) % Neutrophils # 9.1 H (1.3-7.7) k/uL PT (9.0-12.0) sec Chloride (98-107) mmol/L BUN (9-20) mg/dL Creatinine (0.66-1.25) mg/dL Glucose (74-99) mg/dL POC Glucose (mg/dL) 140 H (75-99) mg/dL Calcium (8.4-10.2) mg/dL Total Protein (6.3-8.2) g/dL Albumin (3.5-5.0) g/dL Urine Protein (Negative) 11/24/16 11/24/16 11/24/16 Range/Units 05:44 05:44 06:00 WBC (3.8-10.6) k/uL RBC (4.30-5.90) m/uL Hgb (13.0-17.5) gm/dL Hct (39.0-53.0) % RDW (11.5-15.5) % Neutrophils # (1.3-7.7) k/uL PT 15.8 H (9.0-12.0) sec Chloride 109 H (98-107) mmol/L BUN 39 H (9-20) mg/dL Creatinine 0.64 L (0.66-1.25) mg/dL Glucose 122 H (74-99) mg/dL POC Glucose (mg/dL) 152 H (75-99) mg/dL Calcium 8.3 L (8.4-10.2) mg/dL Total Protein 5.7 L (6.3-8.2) g/dL Albumin 3.1 L (3.5-5.0) g/dL Urine Protein (Negative) 11/24/16 Range/Units 11:44 WBC (3.8-10.6) k/uL RBC (4.30-5.90) m/uL Hgb (13.0-17.5) gm/dL Hct (39.0-53.0) % RDW (11.5-15.5) % Neutrophils # (1.3-7.7) k/uL PT (9.0-12.0) sec Chloride (98-107) mmol/L BUN (9-20) mg/dL Creatinine (0.66-1.25) mg/dL Glucose (74-99) mg/dL POC Glucose (mg/dL) 145 H (75-99) mg/dL Calcium (8.4-10.2) mg/dL Total Protein (6.3-8.2) g/dL Albumin (3.5-5.0) g/dL Urine Protein (Negative) Assessment and Plan Plan: #1 acute GI bleed: Patient scheduled for EGD and colonoscopy tomorrow. Continue with IV Protonix. Continue to monitor hemoglobin. Coumadin on hold #2 chronic atrial fibrillation maintained on Coumadin however INR was subtherapeutic on presentation. INR 1.6. Coumadin remains on hold #3 recent aortic valve replacement #4 chronic history of cardiomyopathy #5 underlying history of chronic obstructive pulmonary disease #6 hypertension well-controlled on current medication #7 bradycardia with heart rate in the 40s: Cardiology has been consulted. He has been Corag 3.125 mg twice I performed an examination of the patient and discussed their management with the physician Circus Hand. I have reviewed the Physician Circus Hand's notes and agree with the documented findings and plan of care
--- NOTE | 2016-11-24 14:22 | P.CRDCN ---
History of Present Illness Consult date: 11/24/16 Requesting physician: Tony Colindres Reason for Consult (text): Lower GI bleed Chief complaint: Lower GI bleed History of present illness: This is a pleasant 65-year-old gentleman with history of hypertension , diabetes, hyperlipidemia, chronic persistent atrial fibrillation, who recently underwent aortic valve replacement with a pericardial bioprosthesis in July of this year, he follows with Dr. Galicia in the office. According to the patient, he has been doing fairly well overall at home. Yesterday morning patient states he moved his bowels, and noted it to be black and red in color. He again had another bowel movement similar, and states subsequent to that he became nauseated and vomited coffee-ground emesis. Patient does take Coumadin for anticoagulation, he had been in the office recently and was told that his INR was 1.1, Coumadin of 10 mg daily was increased to 12 mg daily on 3 days a week. EKG on arrival here showed atrial fibrillation with a controlled ventricular response and nonspecific ST-T wave changes. Chest x-ray reveals stable cardiomegaly with underlying COPD. The pressure on arrival 108/68, temperature 98.2, 100% on room air. Temperature yesterday 100.1. Afebrile today. Blood pressure 105/68 this morning with a heart rate in the 60s. Lab data, hemoglobin on admission 11.6, 9.8 this morning. White blood cell count 11.4, INR on admission 1.5, 1.6 this morning. Potassium 5.2 on admission, 3.9 this morning. BUN 39, creatinine 0.6. Troponin 0.014. At the time of my examination this morning, patient states he had 2 more black stool since arrival here. He was seen by GI service and is scheduled to undergo EGD and colonoscopy tomorrow. He states it has been several years since he has had an upper and lower scope performed. Past Medical History Past Medical History: Diabetes Mellitus, Hypertension Additional Past Medical History / Comment(s): irregular heartbeat, varicose veins, 2 herniated disk/degenerative disks, leaky heart valve, "blood clots in the heart" History of Any Multi-Drug Resistant Organisms: None Reported Past Surgical History: Appendectomy, Bowel Resection, Heart Catheterization, Orthopedic Surgery, Tonsillectomy Additional Past Surgical History / Comment(s): left shoulder surgery, surgery for sleep apnea, deana cataracts Past Anesthesia/Blood Transfusion Reactions: No Reported Reaction Past Psychological History: Depression Smoking Status: Former smoker Past Alcohol Use History: Occasional Past Drug Use History: None Reported - Past Family History Mother Family Medical History: No Reported History Medications and Allergies Home Medications Medication Instructions Recorded Confirmed Type ALPRAZolam [Xanax] 0.25 mg PO BID PRN 10/15/14 11/23/16 History HYDROcodone/APAP 10-325MG [Pamplico 1 tab PO TID PRN 10/15/14 11/23/16 History 10-325] Lisinopril [Zestril] 2.5 mg PO QAM 10/15/14 11/23/16 History Warfarin [Coumadin] 10 mg PO SUMOWEFR 10/15/14 11/23/16 History metFORMIN HCL [Glucophage] 500 mg PO QAM 10/15/14 11/23/16 History buPROPion HCL [Wellbutrin SR] 150 mg PO QAM 01/21/15 11/23/16 History traMADol HCl [Ultram] 50 mg PO BID PRN 01/21/15 11/23/16 History Ergocalciferol (Vitamin D2) 50,000 unit PO SA 04/01/15 11/23/16 History [Drisdol] Docusate [Colace] 100 mg PO DAILY PRN 11/05/15 11/23/16 History Ipratropium-Albuterol Nebulize 3 ml INHALATION RT-QID PRN 11/05/15 11/23/16 History [Duoneb 0.5 mg-3 mg/3 ml Soln] Multivitamins, Thera [Multivitamin 1 tab PO DAILY 11/05/15 11/23/16 History (formulary)] Warfarin Sodium 12.5 mg PO TUTHSA 11/05/15 11/23/16 History Cyanocobalamin [Vitamin B-12] 1,000 mcg PO DAILY 07/21/16 11/23/16 History Vitamin E (Dl,Tocopheryl Acet) 400 unit PO DAILY 07/21/16 11/23/16 History [Vitamin E] FLUoxetine HCL [Sarafem] 60 mg PO DAILY 08/01/16 11/23/16 History Atorvastatin [Lipitor] 40 mg PO HS 11/23/16 11/23/16 History Allergies Allergy/AdvReac Type Severity Reaction Status Date / Time No Known Allergies Allergy Verified 11/23/16 10:36 Physical Exam Vitals: Vital Signs Temp Pulse Resp BP Pulse Ox 11/24/16 11:20 98.5 F 68 18 105/68 98 11/24/16 08:00 97.7 F 70 18 106/68 97 11/24/16 04:00 98.4 F 75 16 149/79 98 11/23/16 23:56 72 11/23/16 23:34 72 18 116/77 99 11/23/16 20:00 98.1 F 83 16 125/81 98 11/23/16 16:00 97.7 F 90 18 126/88 100 Intake and Output 11/23/16 11/24/16 11/24/16 22:59 06:59 14:59 Intake Total 240 600 Output Total 275 Balance 240 325 Intake: Intake, IV Titration 600 Amount Sodium Chloride 0.9% 1, 600 000 ml @ 75 mls/hr IV . [id number] ONE Rx#:[id number] Oral 240 Output: Urine 275 Other: Voiding Method Urinal Urinal # Voids 1 1 # Bowel Movements 1 1 Weight 128.1 kg PHYSICAL EXAMINATION: HEENT: Head is atraumatic, normocephalic. Pupils equal, round. Neck is supple. There is no elevated jugular venous pressure. HEART EXAMINATION: S1 and S2 irregularly irregular a systolic murmur is heard. CHEST EXAMINATION: Lungs are clear to auscultation and precussion. No chest wall tenderness is noted on palpation or with deep breathing. ABDOMEN: Soft, obese, nontender. Bowel sounds are heard. No organomegaly noted. EXTREMITIES: 2+ peripheral pulses with no evidence peripheral edema and no calf tenderness noted. NEUROLOGIC patient is awake, alert and oriented -3. . Results 11/24/16 05:44 11/24/16 05:44 Cardiac Enzymes 11/24/16 Range/Units 05:44 AST 27 (17-59) U/L Coagulation 11/24/16 Range/Units 05:44 PT 15.8 H (9.0-12.0) sec CBC 11/23/16 11/23/16 11/24/16 Range/Units 19:01 22:38 05:44 WBC 11.3 H 11.9 H 11.4 H (3.8-10.6) k/uL RBC 3.40 L 3.32 L 3.13 L (4.30-5.90) m/uL Hgb 10.3 L 9.7 L 9.8 L (13.0-17.5) gm/dL Hct 30.8 L 30.2 L 28.0 L (39.0-53.0) % Plt Count 232 215 177 (150-450) k/uL Comprehensive Metabolic Panel 11/24/16 Range/Units 05:44 Sodium 141 (137-145) mmol/L Potassium 3.9 (3.5-5.1) mmol/L Chloride 109 H (98-107) mmol/L Carbon Dioxide 23 (22-30) mmol/L BUN 39 H (9-20) mg/dL Creatinine 0.64 L (0.66-1.25) mg/dL Glucose 122 H (74-99) mg/dL Calcium 8.3 L (8.4-10.2) mg/dL AST 27 (17-59) U/L ALT 35 (21-72) U/L Alkaline Phosphatase 59 (38-126) U/L Total Protein 5.7 L (6.3-8.2) g/dL Albumin 3.1 L (3.5-5.0) g/dL Current Medications Generic Name Dose Route Start Last Admin Trade Name Freq PRN Reason Stop Dose Admin Hydrocodone Bitart/Acetaminophen 1 each 11/23/16 16:11 Pamplico 10 PO TID PRN Moderate Pain Albuterol/Ipratropium 3 ml 11/24/16 08:19 Duoneb 0.5 Mg-3 Mg/3 Ml Soln INHALATION RT-QID PRN Shortness Of Breath Alprazolam 0.25 mg 11/24/16 08:19 Xanax PO BID PRN Anxiety Atorvastatin Calcium 40 mg 11/23/16 21:00 11/23/16 20:31 Lipitor PO 40 mg HS ADELINA Administration Bupropion HCl 150 mg 11/24/16 09:00 11/24/16 08:48 Wellbutrin Sr PO 150 mg QAM ADELINA Administration Carvedilol 3.125 mg 11/23/16 17:30 11/24/16 06:35 Coreg PO 3.125 mg BID-W/MEALS ADELINA Administration Cyanocobalamin 1,000 mcg 11/24/16 09:00 11/24/16 08:48 Vitamin B-12 PO 1,000 mcg DAILY ADELINA Administration Ergocalciferol 50,000 unit 11/26/16 09:00 Vitamin D2 PO SA [facility] Fluoxetine HCl 60 mg 11/24/16 09:00 11/24/16 08:48 Prozac PO 60 mg DAILY ADELINA Administration Furosemide 40 mg 11/24/16 09:00 11/24/16 08:49 Lasix PO 40 mg DAILY ADELINA Administration Insulin Human Lispro 0 unit 11/23/16 17:30 11/24/16 12:50 Humalog SQ 1 unit ACHS ADELINA Administration Protocol Lisinopril 2.5 mg 11/24/16 09:00 11/24/16 08:49 Zestril PO 2.5 mg QAM ADELINA Administration Multivitamins 1 each 11/24/16 12:00 11/24/16 11:31 Theragran PO 1 each DAILY@1200 ADELINA Administration Pantoprazole Sodium 40 mg 11/24/16 09:00 11/24/16 08:49 Protonix IVP 40 mg DAILY ADELINA Administration Polyethylene Glycol/Electrolytes 4,000 ml 11/24/16 15:00 Golytely Lavage PO 11/24/16 15:01 ONCE ONE Tramadol HCl 50 mg 11/24/16 08:19 Ultram PO BID PRN Moderate Pain Intake and Output 11/23/16 11/24/16 11/24/16 22:59 06:59 14:59 Intake Total 240 600 Output Total 275 Balance 240 325 Intake: Intake, IV Titration 600 Amount Sodium Chloride 0.9% 1, 600 000 ml @ 75 mls/hr IV . [id number] ONE Rx#:[id number] Oral 240 Output: Urine 275 Other: Voiding Method Urinal Urinal # Voids 1 1 # Bowel Movements 1 1 Weight 128.1 kg 11/24/16 05:44 11/24/16 05:44 EKG Interpretations (text) EKG shows A. fib with a controlled ventricular response Assessment and Plan Plan: Assessment and plan #1 GI bleed #2 chronic persistent atrial fibrillation maintained on Coumadin, patient also took a baby aspirin daily INR on admission 1.5 #3 recent aortic valve replacement with bioprosthetic valve, July of this year #4 diabetes #5 hypertension #6 dilated cardiomyopathy Plan We'll discontinue the patient's aspirin. Coumadin is currently on hold. Okay with proceeding with EGD and colonoscopy for tomorrow. We will also look into one of the newer anticoagulants for this patient. Further recommendations to follow. DNP note has been reviewed, I agree with a documented findings and plan of care. Patient was seen and examined.
--- NOTE | 2016-11-24 14:33 | P.PN ---
Progress Note - Text This is an addendum to the dictated cardiology consultation. The patient has a history of chronic atrial fibrillation, aortic valve replacement for bicuspid aortic valve who presents with symptoms of fatigue, GI bleeding and severe dizziness. He has no history of obstructive CAD. He has done quite well from the cardiac standpoint surgery with improved breathing pattern with no associated dizziness, palpitations or syncope. The patient's INR was sub- therapeutic recently. He has no prior history of GI. On physical examination his lungs are clear, he is in atrial fibrillation with a systolic murmur and no evidence of edema. We will await the results of the GI workup and depending on the source of bleeding the patient with require to go back on anticoagulation either in the form admitted or novel anticoagulant. I will stop aspirin to reduce the risk of bleeding and specially that there is no evidence of significant CAD. I discussed this finding with the patient. Thank you for this consult we will follow with you.
[2016-11-24] MEDS ORDERED: PEG 3350-NA SULF,BICARB,CL/KCL 4,000 ML BOTTLE PO ONE (15:00)
--- NOTE | 2016-11-24 15:19 | CDI ---
In responding to this query, please exercise your independent professional judgment. The [facility] Coding Staff and Clinical Documentation Specialists appreciate your assistance in clarifying documentation, maintaining compliance with coding guidelines, accurately documenting patients condition and capturing severity of illness. The fact that a question is asked does not imply that any particular answer is desired or expected. Communication forms are a method of clarifying documentation and are not made part of the Legal Health Record. Thank you in advance for your clarification. Last Revision, April 2015 Jass Phillips [address] [address] Documentation Clarification Form Date: 11/24/2016 2:49:00 PM From: Marine Burrell RN, CDS Admit Date: 11/23/2016 12:52:00 PM Patient Name: Neo Gaston Visit Number: [id number] Dr. Tony Colindres, 65 yo patient admitted for gi bleed. He has a history of having recent Aortic Valve Replacement. Patient history/risk factors DM, HTN, recent Aortic Valve Replacement Clinical Indicators: Lab findings: INR: 1.5 and 1.6, PT 14.8 and 15.8, , Bloody stools, coffee ground emesis, "GI Bleed and Acute Blood Loss Anemia" per H&P, "Warfarin induced coagulopathy" per GI consult, Treatment: Coumadin held, Type and Cross, CBC daily In your professional opinion, can you please clarify ? Hemorrhagic disorder due to extrinsic circulating anticoagulants Warfarin induced coagulopathy Other Unable to determine Please document in your progress notes and discharge summary in order to capture severity of illness and risk of mortality. Include clinical findings that support your diagnosis. FYI: Press F11 to launch patient chart. Place X here if this finding has no clinical significance, is not applicable or if you are not able to provide any additional documentation. BERNARDINO
[2016-11-24 16:55] LABS: Glucose,Whole Blood 104 mg/dL (75-99)
[2016-11-24] MEDS: ATORVASTATIN 40 MG TAB PO SCH (21:01)
[2016-11-24 21:11] LABS: Glucose,Whole Blood 109 mg/dL (75-99)
[2016-11-25] MEDS: LACTATED RINGERS 1,000 ML IV SCH (06:11)
[2016-11-25 06:20] LABS: Anisocytosis Slight; Basophils # (A) 0.1 k/uL (0-0.2); Basophils % (A) 0 %; CH 29.4; CHCM 33.5; Eosinophils # (A) 0.3 k/uL (0-0.7); Eosinophils % (A) 2 %; HCT 24.2 % (39.0-53.0); HDW 2.52; HGB 8.5 gm/dL (13.0-17.5); Luc # (Auto) 0.26; Luc % (Auto) 2; Lymphocytes # (A) 2.8 k/uL (1.0-4.8); Lymphocytes % (A) 24 %; MCHC 35.2 g/dL (31.0-37.0); MCV 88.2 fL (80.0-100.0); Mean Platelet Volume 7.3; Monocytes # (A) 0.9 k/uL (0-1.0); Monocytes % (A) 8 %; Neutrophils # (A) 7.4 k/uL (1.3-7.7); Neutrophils % (A) 63 %; RBC 2.74 m/uL (4.30-5.90); WBC 11.6 k/uL (3.8-10.6); WBC (Perox) 12.12
[2016-11-25 06:24] LABS: INR 1.6 (<1.1); Prothrombin Time 15.9 sec (9.0-12.0)
[2016-11-25] MEDS: INSULIN LISPRO (humaLOG) 300 UNIT/3 ML VIAL SQ SCH ×4 (06:31→20:44)
[2016-11-25] MEDS: CARVEDILOL 3.125 MG TAB PO SCH ×2 (06:31→15:28)
[2016-11-25 06:37] LABS: Glucose,Whole Blood 112 mg/dL (75-99)
[2016-11-25 06:38] LABS: ALT 29 U/L (21-72); AST 40 U/L (17-59); Alkaline Phosphatase 58 U/L (38-126); Anion Gap 10 mmol/L; Blood Urea Nitrogen 27 mg/dL (9-20); Calcium 8.3 mg/dL (8.4-10.2); Carbon Dioxide 23 mmol/L (22-30); Chloride 106 mmol/L (98-107); Glucose 103 mg/dL (74-99); Non-African American GFR(MDRD) >60 (>60 ml/min/1.73 sqM); Potassium 3.8 mmol/L (3.5-5.1); Sodium 139 mmol/L (137-145); Total Bilirubin 0.7 mg/dL (0.2-1.3); Total Protein 5.7 g/dL (6.3-8.2)
[2016-11-25] MEDS: MULTIVITAMINS, THERA 1 EACH TAB PO SCH (08:33)
[2016-11-25] MEDS: FUROSEMIDE 40 MG TAB PO SCH (08:33)
[2016-11-25] MEDS: PANTOPRAZOLE 40 MG/10 ML VIAL IVP SCH (08:33)
[2016-11-25] MEDS: CYANOCOBALAMIN 500 MCG TAB PO SCH (08:33)
[2016-11-25] MEDS: buPROPion SR 150 MG TABLET.ER PO SCH (08:34)
[2016-11-25] MEDS: LISINOPRIL 2.5 MG TAB PO SCH (08:34)
[2016-11-25] MEDS: FLUoxetine HCL 20 MG CAP PO SCH (08:34)
[2016-11-25 10:21] VITALS: RESP 18
--- NOTE | 2016-11-25 10:35 | P.PN ---
Subjective Patient is a 65-year-old male well-known to my practice who presented to [facility] emergency room with a chief complaint of gastrointestinal bleeding. Patient reports vomiting coffee-ground material as well as having black stools and some bright red blood in his stools. Patient also has a history of atrial fibrillation which is on the Coumadin. Patient is scheduled for EGD and colonoscopy tomorrow. Hemoglobin has dropped to 8.5. He did have some black stools while he was doing the GoLYTELY prep. Heart rate is improved. Cardiology is following. Patient denies any vomiting any abdominal pain. Denies any chest pain or shortness of breath. Denies any difficulty urinating. Objective - Vital Signs Vital signs: Vital Signs Temp 98.1 F 11/25/16 08:00 Pulse 66 11/25/16 08:00 Resp 18 11/25/16 08:00 BP 120/59 11/25/16 08:00 Pulse Ox 97 11/25/16 08:00 Intake & Output 11/24/16 11/25/16 11/25/16 18:59 06:59 18:59 Intake Total 1140 20 Output Total 675 Balance 465 20 Weight 127.6 kg Intake: IV 20 0.9 20 Intake, IV Titration 600 Amount Sodium Chloride 0.9% 1, 600 000 ml @ 75 mls/hr IV . [id number] ONE Rx#:[id number] Oral 540 Output: Urine 675 Other: Voiding Method Urinal Urinal # Voids 1 # Bowel Movements 1 5 - Exam Head normocephalic Neck supple Lungs clear to auscultation bilaterally no wheezing or crackles Heart regular rate and rhythm S1-S2, no rub or gallop positive murmur Abdomen is soft nontender nondistended positive bowel sounds no hepatosplenomegaly Extremities no edema Neuro alert and orientated to 3 - Labs CBC & Chem 7: 11/25/16 05:41 11/25/16 05:41 Labs: Abnormal Lab Results - Last 24 Hours (Table) 11/24/16 11/24/16 11/24/16 Range/Units 11:44 16:42 20:59 WBC (3.8-10.6) k/uL RBC (4.30-5.90) m/uL Hgb (13.0-17.5) gm/dL Hct (39.0-53.0) % RDW (11.5-15.5) % PT (9.0-12.0) sec BUN (9-20) mg/dL Creatinine (0.66-1.25) mg/dL Glucose (74-99) mg/dL POC Glucose (mg/dL) 145 H 104 H 109 H (75-99) mg/dL Calcium (8.4-10.2) mg/dL Total Protein (6.3-8.2) g/dL Albumin (3.5-5.0) g/dL 11/25/16 11/25/16 11/25/16 Range/Units 05:41 05:41 05:41 WBC 11.6 H (3.8-10.6) k/uL RBC 2.74 L (4.30-5.90) m/uL Hgb 8.5 L (13.0-17.5) gm/dL Hct 24.2 L (39.0-53.0) % RDW 17.0 H (11.5-15.5) % PT 15.9 H (9.0-12.0) sec BUN 27 H (9-20) mg/dL Creatinine 0.57 L (0.66-1.25) mg/dL Glucose 103 H (74-99) mg/dL POC Glucose (mg/dL) (75-99) mg/dL Calcium 8.3 L (8.4-10.2) mg/dL Total Protein 5.7 L (6.3-8.2) g/dL Albumin 3.1 L (3.5-5.0) g/dL 11/25/16 Range/Units 06:30 WBC (3.8-10.6) k/uL RBC (4.30-5.90) m/uL Hgb (13.0-17.5) gm/dL Hct (39.0-53.0) % RDW (11.5-15.5) % PT (9.0-12.0) sec BUN (9-20) mg/dL Creatinine (0.66-1.25) mg/dL Glucose (74-99) mg/dL POC Glucose (mg/dL) 112 H (75-99) mg/dL Calcium (8.4-10.2) mg/dL Total Protein (6.3-8.2) g/dL Albumin (3.5-5.0) g/dL Microbiology - Last 24 Hours (Table) 11/23/16 11:23 Blood Culture - Preliminary Blood No Growth after 24 hours Assessment and Plan Plan: #1 acute GI bleed: Patient scheduled for EGD and colonoscopy today. Continue with IV Protonix. Drop in hemoglobin to 8.5. Repeat CBC in a.m. Coumadin on hold #2 chronic atrial fibrillation maintained on Coumadin however INR was subtherapeutic on presentation. INR 1.6. Coumadin remains on hold. Await further anticoagulation recommendations per cardiology #3 recent aortic valve replacement #4 chronic history of cardiomyopathy #5 underlying history of chronic obstructive pulmonary disease #6 hypertension well-controlled on current medication #7 bradycardia with heart rate in the 40s: Heart rate has shown improvement. Cardiology following I performed an examination of the patient and discussed their management with the physician Tip Mender. I have reviewed the Physician Tip Mender's notes and agree with the documented findings and plan of care
[2016-11-25 11:36] LABS: Glucose,Whole Blood 128 mg/dL (75-99)
[2016-11-25] MEDS ORDERED: PROPOFOL 10 MG/ML 20 ML VIAL IV ONE (13:26)
[2016-11-25] MEDS ORDERED: IV FLUID CONTINUATION 600 ML IV ONE (13:48)
--- NOTE | 2016-11-25 14:07 | P.PCN ---
Date of Procedure: 11/25/16 Preoperative Diagnosis: Postoperative Diagnosis: Procedure(s) Performed: Brief history: Patient is a pleasant 65-year-old white male, scheduled for an elective upper endoscopy as well as colonoscopy as a part of evaluation of acute GI bleed. He presented to the hospital with couple of episodes of coffee-ground emesis and black tarry stools of 2 days' duration. Initial hemoglobin was 9.5 and subsequently dropped to 8.5 g/dL. He is on Coumadin for A. fib and history of valve replacement which is presently on hold. Procedure performed: Esophagogastroduodenoscopy Colonoscopy Preoperative diagnosis: Acute GI bleed Anesthesia: MAC Procedure: After informed consent was obtained from the patient was brought into the endoscopy unit and IV sedation was administered by anesthesia under continuous monitoring. Initially upper endoscopy was done. The Olympus GF 160 video endoscope was inserted inserted into the mouth and esophagus intubated without any difficulty and was gradually advanced into the stomach and duodenum and carefully examined. The bulb and second part of the duodenum appeared normal. The scope was then withdrawn into the stomach adequately insufflated with air and upon careful examination there was a 1 cm ulcer in the pyloric channel with no active bleeding. The antrum and body, cardia and fundus appeared normal. The scope was then withdrawn into the esosmall hiatal hernia noted.The GE junction was located at 40 cm to the incisors. It appeared regular with no erythema erosions or ulcerations. Rest of the esophagus appeared normal. Patient tolerated the procedure well. At this time the patient continued to remain sedation. Initial digital rectal examination was normal. Olympus CF 160 video colonoscope was then inserted into the rectum and gradually advanced to the cecum without any difficulty. Careful examination was performed as the scope was gradually being withdrawn. The prep was excellent. The cecum, ascending colon, transverse colon, descending colon, sigmoid colon and rectum appeared normal. Retroflexion was performed in the rectum and no lesions were noted. Patient tolerated the procedure well. Impression: 1. Upper endoscopy revealed small hiatal hernia and 1 cm clean-based the channel ulcer with no active bleeding. 2.colonoscopy was essentially within normal limits with no evidence of colitis or colorectal neoplasia. Recommendations: Findings of this examination were discussed with the patient as well as his family. He will be continued on Protonix 40 mg daily and was advised to avoid NSAIDs. He can resume Coumadin into the 3 days. He will be started on a regular diet. Implants: Indications for Procedure: Operative Findings: Description of Procedure:
--- NOTE | 2016-11-25 14:34 | P.PN ---
Subjective Principal diagnosis: GI bleed This is a pleasant 65-year-old gentleman with history of hypertension , diabetes, hyperlipidemia, chronic persistent atrial fibrillation, who recently underwent aortic valve replacement with a pericardial bioprosthesis in July of this year, he follows with Dr. Galicia in the office. According to the patient, he has been doing fairly well overall at home. He presented to the hospital with GI bleeding. He was seen in consultation by GI service yesterday and is scheduled today to undergo EGD and colonoscopy. He's had no further blood in his stool. His any chest pain, breathing has been stable. Objective - Vital Signs Vital signs: Vital Signs Temp 97.8 F 11/25/16 12:00 Pulse 61 11/25/16 12:00 Resp 18 11/25/16 12:00 BP 116/67 11/25/16 12:00 Pulse Ox 97 11/25/16 12:00 Intake & Output 11/24/16 11/25/16 11/25/16 18:59 06:59 18:59 Intake Total 1140 20 Output Total 675 Balance 465 20 Weight 127.6 kg Intake: IV 20 0.9 20 Intake, IV Titration 600 Amount Sodium Chloride 0.9% 1, 600 000 ml @ 75 mls/hr IV . [id number] ONE Rx#:[id number] Oral 540 Output: Urine 675 Other: Voiding Method Urinal Urinal # Voids 1 1 # Bowel Movements 1 5 - Exam PHYSICAL EXAMINATION: HEENT: Head is atraumatic, normocephalic. Pupils equal, round. Neck is supple. There is no elevated jugular venous pressure. HEART EXAMINATION: S1 and S2 irregularly irregular a systolic murmur is heard. CHEST EXAMINATION: Lungs are clear to auscultation and precussion. No chest wall tenderness is noted on palpation or with deep breathing. ABDOMEN: Soft, obese, nontender. Bowel sounds are heard. No organomegaly noted. EXTREMITIES: 2+ peripheral pulses with no evidence peripheral edema and no calf tenderness noted. NEUROLOGIC patient is awake, alert and oriented -3. - Labs CBC & Chem 7: 11/25/16 05:41 11/25/16 05:41 Labs: Abnormal Lab Results - Last 24 Hours (Table) 11/24/16 11/24/16 11/25/16 Range/Units 16:42 20:59 05:41 WBC 11.6 H (3.8-10.6) k/uL RBC 2.74 L (4.30-5.90) m/uL Hgb 8.5 L (13.0-17.5) gm/dL Hct 24.2 L (39.0-53.0) % RDW 17.0 H (11.5-15.5) % PT (9.0-12.0) sec BUN (9-20) mg/dL Creatinine (0.66-1.25) mg/dL Glucose (74-99) mg/dL POC Glucose (mg/dL) 104 H 109 H (75-99) mg/dL Calcium (8.4-10.2) mg/dL Total Protein (6.3-8.2) g/dL Albumin (3.5-5.0) g/dL 11/25/16 11/25/16 11/25/16 Range/Units 05:41 05:41 06:30 WBC (3.8-10.6) k/uL RBC (4.30-5.90) m/uL Hgb (13.0-17.5) gm/dL Hct (39.0-53.0) % RDW (11.5-15.5) % PT 15.9 H (9.0-12.0) sec BUN 27 H (9-20) mg/dL Creatinine 0.57 L (0.66-1.25) mg/dL Glucose 103 H (74-99) mg/dL POC Glucose (mg/dL) 112 H (75-99) mg/dL Calcium 8.3 L (8.4-10.2) mg/dL Total Protein 5.7 L (6.3-8.2) g/dL Albumin 3.1 L (3.5-5.0) g/dL 11/25/16 Range/Units 11:35 WBC (3.8-10.6) k/uL RBC (4.30-5.90) m/uL Hgb (13.0-17.5) gm/dL Hct (39.0-53.0) % RDW (11.5-15.5) % PT (9.0-12.0) sec BUN (9-20) mg/dL Creatinine (0.66-1.25) mg/dL Glucose (74-99) mg/dL POC Glucose (mg/dL) 128 H (75-99) mg/dL Calcium (8.4-10.2) mg/dL Total Protein (6.3-8.2) g/dL Albumin (3.5-5.0) g/dL Microbiology - Last 24 Hours (Table) 11/23/16 11:23 Blood Culture - Preliminary Blood No Growth after 48 hours Assessment and Plan Plan: Assessment and plan #1 GI bleed #2 chronic persistent atrial fibrillation maintained on Coumadin, patient also took a baby aspirin daily INR on admission 1.5 #3 recent aortic valve replacement with bioprosthetic valve, July of this year #4 diabetes #5 hypertension #6 dilated cardiomyopathy Plan Patient will be scheduled to undergo EGD and colonoscopy a. Once it is okay with GI service anticoagulation will need to be reinitiated either in the form of Coumadin or one of the newer anticoagulants. DNP note has been reviewed, I agree with a documented findings and plan of care. Patient was seen and examined.
[2016-11-25] MEDS: HYDROcodone/APAP 10-325MG 1 EACH TAB PO PRN (15:35)
[2016-11-25 16:37] LABS: Glucose,Whole Blood 145 mg/dL (75-99)
[2016-11-25 20:39] LABS: Glucose,Whole Blood 125 mg/dL (75-99)
[2016-11-25] MEDS: ATORVASTATIN 40 MG TAB PO SCH (20:47)
[2016-11-26] MEDS: HYDROcodone/APAP 10-325MG 1 EACH TAB PO PRN (04:56)
[2016-11-26] MEDS: LACTATED RINGERS 1,000 ML IV SCH (05:43)
[2016-11-26 06:02] LABS: Anisocytosis Slight; Basophils % (A) 1 %; CH 29.7; CHCM 32.4; Eosinophils # (A) 0.2 k/uL (0-0.7); Eosinophils % (A) 3 %; HCT 24.4 % (39.0-53.0); HGB 8.3 gm/dL (13.0-17.5); Luc # (Auto) 0.19; Luc % (Auto) 2; Lymphocytes # (A) 2.5 k/uL (1.0-4.8); Lymphocytes % (A) 29 %; MCH 31.1 pg (25.0-35.0); MCHC 33.8 g/dL (31.0-37.0); MCV 91.9 fL (80.0-100.0); Mean Platelet Volume 6.6; Monocytes # (A) 0.6 k/uL (0-1.0); Monocytes % (A) 7 %; Neutrophils # (A) 5.2 k/uL (1.3-7.7); Neutrophils % (A) 59 %; RBC 2.66 m/uL (4.30-5.90); RDW 17.5 % (11.5-15.5); WBC 8.8 k/uL (3.8-10.6); WBC (Perox) 9.24
[2016-11-26 06:12] LABS: ALT 38 U/L (21-72); AST 33 U/L (17-59); Alkaline Phosphatase 64 U/L (38-126); Anion Gap 11 mmol/L; Blood Urea Nitrogen 24 mg/dL (9-20); Calcium 8.3 mg/dL (8.4-10.2); Carbon Dioxide 23 mmol/L (22-30); Chloride 105 mmol/L (98-107); Glucose 98 mg/dL (74-99); INR 1.3 (<1.1); Non-African American GFR(MDRD) >60 (>60 ml/min/1.73 sqM); Potassium 3.3 mmol/L (3.5-5.1); Prothrombin Time 13.2 sec (9.0-12.0); Sodium 139 mmol/L (137-145); Total Bilirubin 0.5 mg/dL (0.2-1.3); Total Protein 5.8 g/dL (6.3-8.2)
[2016-11-26 06:22] LABS: Glucose,Whole Blood 119 mg/dL (75-99)
[2016-11-26] MEDS: INSULIN LISPRO (humaLOG) 300 UNIT/3 ML VIAL SQ SCH (06:29)
[2016-11-26] MEDS: CARVEDILOL 3.125 MG TAB PO SCH (06:35)
[2016-11-26] MEDS: MULTIVITAMINS, THERA 1 EACH TAB PO SCH (08:49)
[2016-11-26] MEDS: FUROSEMIDE 40 MG TAB PO SCH (08:50)
[2016-11-26] MEDS: LISINOPRIL 2.5 MG TAB PO SCH (08:50)
[2016-11-26] MEDS: FLUoxetine HCL 20 MG CAP PO SCH (08:50)
[2016-11-26] MEDS: buPROPion SR 150 MG TABLET.ER PO SCH (08:51)
[2016-11-26] MEDS: CYANOCOBALAMIN 500 MCG TAB PO SCH (08:51)
[2016-11-26] MEDS ORDERED: PANTOPRAZOLE 40 MG TABLET PO SCH (09:00)
[2016-11-26] MEDS ORDERED: ERGOCALCIFEROL 50,000 UNIT CAP PO SCH (09:00)
[2016-11-26 09:38] VITALS: TEMP 98
[2016-11-26 11:29] LABS: Glucose,Whole Blood 78 mg/dL (75-99)
--- NOTE | 2016-11-26 11:50 | PN ---
Patient is a 66-year-old white male admitted to the hospital with acute GI bleed. He underwent an upper endoscopy as well as colonoscopy yesterday. Upper endoscopy revealed a 1 cm pyloric channel ulcer and colonoscopy was within normal limits. The patient presently on Protonix 40 mg twice daily. No further episodes of bleeding. His Coumadin has been on hold and INR was 1.6 yesterday. He denies any abdominal pain. No nausea or vomiting. No rectal bleeding or melena. On physical examination, he appears comfortable in no apparent distress. Vitals as are stable. Blood pressure 96/57, pulse rate 58, temperature 98. HEENT: Unremarkable. Conjunctivae pink. Sclerae anicteric. Oral cavity, no lesions. NECK: No JVD or lymph node enlargement. CHEST: Clear to auscultation. HEART: Regular rate and rhythm. ABDOMEN: Soft. Bowel sounds are positive. No organomegaly. EXTREMITIES: No pedal edema. SKIN: No rashes. NEURO: He is alert and oriented x2. No focal deficits. Labs from today, hemoglobin is 8.3, INR is 1.3. IMPRESSION: 1. Acute gastrointestinal bleed, most likely related to peptic ulcer disease. Upper endoscopy yesterday showed 1 cm pyloric channel ulcer that was not bleeding. Colonoscopy was within normal limits. Presently on Protonix 40 mg twice daily, doing better. on Coumadin for. 2. Atrial fibrillation on Coumadin, presently on hold. RECOMMENDATIONS: 1. Advance diet as tolerated. 2. Continue Protonix 40 mg twice daily. 3. Hold Coumadin for 2 to 3 days prior to resuming it. 4. Avoid NSAIDs, 5. Patient can be discharged home with outpatient follow up in 3 to 4 weeks.
--- NOTE | 2016-11-26 11:59 | P.PN ---
Subjective Principal diagnosis: GI bleed This is a pleasant 65-year-old gentleman with history of hypertension , diabetes, hyperlipidemia, chronic persistent atrial fibrillation, who recently underwent aortic valve replacement with a pericardial bioprosthesis in July of this year, he follows with Dr. Galicia in the office. According to the patient, he has been doing fairly well overall at home. He presented to the hospital with GI bleeding. Patient did undergo an upper endoscopy and colonoscopy today. Upper endoscopy revealed a small hiatal hernia and a 1 cm ulcer with no active bleeding. Colonoscopy was essentially normal with no evidence of colitis or colorectal neoplasia. Coumadin can be resumed in 3 days. Overall patient is feeling much better today, no further blood in his stool. Blood pressure 104/60 with a heart rate in the 60s. Objective - Vital Signs Vital signs: Vital Signs Temp 98.0 F 11/26/16 08:00 Pulse 68 11/26/16 08:00 Resp 18 11/26/16 08:00 BP 104/60 11/26/16 08:00 Pulse Ox 97 11/26/16 08:00 Intake & Output 11/25/16 11/26/16 11/26/16 18:59 06:59 18:59 Intake Total 180 480 Balance 180 480 Weight 128.7 kg Intake: Intake, IV Titration 240 Amount Lactated Ringers 1,000 ml 240 @ 20 mls/hr IV .Q24H ADELINA Rx#:[id number] Oral 180 240 Other: Voiding Method Urinal Urinal Urinal # Voids 1 1 - Exam PHYSICAL EXAMINATION: HEENT: Head is atraumatic, normocephalic. Pupils equal, round. Neck is supple. There is no elevated jugular venous pressure. HEART EXAMINATION: S1 and S2 irregularly irregular a systolic murmur is heard. CHEST EXAMINATION: Lungs are clear to auscultation and precussion. No chest wall tenderness is noted on palpation or with deep breathing. ABDOMEN: Soft, obese, nontender. Bowel sounds are heard. No organomegaly noted. EXTREMITIES: 2+ peripheral pulses with no evidence peripheral edema and no calf tenderness noted. NEUROLOGIC patient is awake, alert and oriented -3. - Labs CBC & Chem 7: 11/26/16 05:35 11/26/16 05:35 Labs: Abnormal Lab Results - Last 24 Hours (Table) 11/25/16 11/25/16 11/26/16 Range/Units 16:34 20:35 05:35 RBC 2.66 L (4.30-5.90) m/uL Hgb 8.3 L (13.0-17.5) gm/dL Hct 24.4 L (39.0-53.0) % RDW 17.5 H (11.5-15.5) % PT (9.0-12.0) sec Potassium (3.5-5.1) mmol/L BUN (9-20) mg/dL POC Glucose (mg/dL) 145 H 125 H (75-99) mg/dL Calcium (8.4-10.2) mg/dL Total Protein (6.3-8.2) g/dL Albumin (3.5-5.0) g/dL 11/26/16 11/26/16 11/26/16 Range/Units 05:35 05:35 06:19 RBC (4.30-5.90) m/uL Hgb (13.0-17.5) gm/dL Hct (39.0-53.0) % RDW (11.5-15.5) % PT 13.2 H (9.0-12.0) sec Potassium 3.3 L (3.5-5.1) mmol/L BUN 24 H (9-20) mg/dL POC Glucose (mg/dL) 119 H (75-99) mg/dL Calcium 8.3 L (8.4-10.2) mg/dL Total Protein 5.8 L (6.3-8.2) g/dL Albumin 3.2 L (3.5-5.0) g/dL Microbiology - Last 24 Hours (Table) 11/23/16 11:23 Blood Culture - Preliminary Blood No Growth after 48 hours Assessment and Plan Plan: Assessment and plan #1 GI bleed #2 chronic persistent atrial fibrillation maintained on Coumadin, patient also took a baby aspirin daily INR on admission 1.5 #3 recent aortic valve replacement with bioprosthetic valve, July of this year #4 diabetes #5 hypertension #6 dilated cardiomyopathy Plan EGD revealed a small ulcer, colonoscopy essentially normal. Resume the patient' s Coumadin in 3 days. We will also make him a follow-up appointment in the office post discharge. DNP note has been reviewed, I agree with a documented findings and plan of care. Patient was seen and examined.
--- NOTE | 2016-11-26 12:24 | P.DS ---
Providers Date of admission: 11/23/16 12:52 Expected date of discharge: 11/26/16 Attending physician: Tony Colindres Consults: 11/23/16 12:52 Consult Physician Urgent Consulting Provider: Ramon Victoria Consult Reason/Comments: GI bleed Do you want consulting provider notified?: Yes 11/24/16 10:53 Consult Physician Routine Consulting Provider: Mely Wick Consult Reason/Comments: bradycardia Do you want consulting provider notified?: Yes Primary care physician: Tony Bernadine [facility] Course: This is a 66-year-old gentleman with past medical history significant for atrial fibrillation and history of aortic valve replacement who presented to the hospital with GI bleed. Patient was admitted and was seen and evaluated by both cardiology and GI. He underwent an EGD and colonoscopy. EGD showed a nonbleeding ulcer and colonoscopy was essentially normal. Patient's hemoglobin has stabilized around 8.5 from 11 on presentation. He was cleared by consultants for discharge. He was cleared to resume anticoagulation with Coumadin. He had a normal bowel movement on the day of discharge with no black stool and no blood in stool. He will be discharged home in a stable condition. He will follow-up with his primary care physician within the next 2 days to check his CBC and INR. He was redirected to return to the emergency room if any signs of bleeding recur. Please refer to the electronic chart for further details about this hospitalization. Plan - Discharge Summary New Discharge Prescriptions: Continue metFORMIN HCL [Glucophage] 500 mg PO QAM Warfarin [Coumadin] 10 mg PO SUMOWEFR Lisinopril [Zestril] 2.5 mg PO QAM HYDROcodone/APAP 10-325MG [[place] 10-325] 1 tab PO TID PRN PRN Reason: Pain ALPRAZolam [Xanax] 0.25 mg PO BID PRN PRN Reason: Anxiety traMADol HCl [Ultram] 50 mg PO BID PRN PRN Reason: Pain buPROPion HCL [Wellbutrin SR] 150 mg PO QAM Ergocalciferol (Vitamin D2) [Drisdol] 50,000 unit PO SA Ipratropium-Albuterol Nebulize [Duoneb 0.5 mg-3 mg/3 ml Soln] 3 ml INHALATION RT-QID PRN PRN Reason: Shortness Of Breath Docusate [Colace] 100 mg PO DAILY PRN PRN Reason: Constipation Multivitamins, Thera [Multivitamin (formulary)] 1 tab PO DAILY Warfarin Sodium 12.5 mg PO TUTHSA Cyanocobalamin [Vitamin B-12] 1,000 mcg PO DAILY Vitamin E (Dl,Tocopheryl Acet) [Vitamin E] 400 unit PO DAILY FLUoxetine HCL [Sarafem] 60 mg PO DAILY Aspirin 81 mg PO DAILY #30 chew Carvedilol [Coreg] 3.125 mg PO BID-W/MEALS #60 tab Furosemide [Lasix] 40 mg PO DAILY #30 tablet Pantoprazole [Protonix] 40 mg PO AC-BRKFST #30 tablet. Atorvastatin [Lipitor] 40 mg PO HS Discharge Medication List ALPRAZolam [Xanax] 0.25 mg PO BID PRN 10/15/14 [History] HYDROcodone/APAP 10-325MG [[place] 10-325] 1 tab PO TID PRN 10/15/14 [History] Lisinopril [Zestril] 2.5 mg PO QAM 10/15/14 [History] Warfarin [Coumadin] 10 mg PO SUMOWEFR 10/15/14 [History] metFORMIN HCL [Glucophage] 500 mg PO QAM 10/15/14 [History] buPROPion HCL [Wellbutrin SR] 150 mg PO QAM 01/21/15 [History] traMADol HCl [Ultram] 50 mg PO BID PRN 01/21/15 [History] Ergocalciferol (Vitamin D2) [Drisdol] 50,000 unit PO SA 04/01/15 [History] Docusate [Colace] 100 mg PO DAILY PRN 11/05/15 [History] Ipratropium-Albuterol Nebulize [Duoneb 0.5 mg-3 mg/3 ml Soln] 3 ml INHALATION RT -QID PRN 11/05/15 [History] Multivitamins, Thera [Multivitamin (formulary)] 1 tab PO DAILY 11/05/15 [History ] Warfarin Sodium 12.5 mg PO TUTHSA 11/05/15 [History] Cyanocobalamin [Vitamin B-12] 1,000 mcg PO DAILY 07/21/16 [History] Vitamin E (Dl,Tocopheryl Acet) [Vitamin E] 400 unit PO DAILY 07/21/16 [History] FLUoxetine HCL [Sarafem] 60 mg PO DAILY 08/01/16 [History] Aspirin 81 mg PO DAILY #30 chew 08/06/16 [Rx] Carvedilol [Coreg] 3.125 mg PO BID-W/MEALS #60 tab 08/06/16 [Rx] Furosemide [Lasix] 40 mg PO DAILY #30 tablet 08/06/16 [Rx] Pantoprazole [Protonix] 40 mg PO AC-BRKFST #30 tablet. 08/06/16 [Rx] Atorvastatin [Lipitor] 40 mg PO HS 11/23/16 [History] Follow up Appointment(s)/Referral(s): Gina Galicia MD [STAFF PHYSICIAN] - 4 Weeks Tony Colindres MD [Primary Care Provider] - 1-2 days Discharge Disposition: HOME SELF-CARE
[2016-11-26 15:48] VITALS: BP 120/78; PULSE 69
== END 2016-11-26 15:57 | disposition home or self-care (01) | DRG 378 ==
LOC: EC 09:54 → 6SEL 12:52
PROVIDERS: ADMIT Internal Medicine; ATTEND Internal Medicine
PROC: 0DJ08ZZ Inspection of Upper Intestinal Tract, Via Natural or Artificial Opening Endoscopic (ICD-10-PCS; principal; 2016-11-25 13:00)
PROC: 0DJD8ZZ Inspection of Lower Intestinal Tract, Via Natural or Artificial Opening Endoscopic (ICD-10-PCS; 2016-11-25 13:00)
DX: K25.4 Chronic or unspecified gastric ulcer with hemorrhage (principal); I42.0 Dilated cardiomyopathy; I48.2 Chronic atrial fibrillation; I48.1 Persistent atrial fibrillation; Z68.41 Body mass index [BMI] 40.0-44.9, adult; I10 Essential (primary) hypertension; R55 Syncope and collapse; F32.9 Major depressive disorder, single episode, unspecified; D62 Acute posthemorrhagic anemia; J44.9 Chronic obstructive pulmonary disease, unspecified; T45.515A Adverse effect of anticoagulants, initial encounter; E11.9 Type 2 diabetes mellitus without complications; K44.9 Diaphragmatic hernia without obstruction or gangrene; E78.5 Hyperlipidemia, unspecified; G47.30 Sleep apnea, unspecified; E66.9 Obesity, unspecified; I35.0 Nonrheumatic aortic (valve) stenosis; I83.90 Asymptomatic varicose veins of unspecified lower extremity; Z87.891 Personal history of nicotine dependence; Z79.899 Other long term (current) drug therapy; Z79.01 Long term (current) use of anticoagulants; Z79.84 Long term (current) use of oral hypoglycemic drugs; Z95.3 Presence of xenogenic heart valve; Z90.49 Acquired absence of other specified parts of digestive tract; Z98.42 Cataract extraction status, left eye; Z98.41 Cataract extraction status, right eye; Z87.19 Personal history of other diseases of the digestive system; Z79.891 Long term (current) use of opiate analgesic; Z87.74 Personal history of (corrected) congenital malformations of heart and circulatory system
CPT/HCPCS: 36415; 43235; 45378; 71020; 80053; 81003; 82550; 82553; 83036; 83605; 84484; 85025; 85027; 85610; 85730; 86850; 86900; 86901; 87040; 93005; 96374; 96375; 99285

== ENCOUNTER → 2017-01-26 | Outpatient (CLI) | payer MEDICARE, OTHER ==
[2017-01-26 16:20] LABS: Anisocytosis Moderate; Basophils # (A) 0.1 k/uL (0-0.2); Basophils % (A) 1 %; CH 22.7; Eosinophils # (A) 0.3 k/uL (0-0.7); Eosinophils % (A) 3 %; HCT 32.4 % (39.0-53.0); HDW 4.51; HGB 9.4 gm/dL (13.0-17.5); Hypochromasia Marked; Luc # (Auto) 0.36; Luc % (Auto) 4; Lymphocytes # (A) 1.7 k/uL (1.0-4.8); Lymphocytes % (A) 17 %; MCH 23.2 pg (25.0-35.0); MCHC 28.9 g/dL (31.0-37.0); Mean Platelet Volume 6.1; Microcytosis Slight; Monocytes # (A) 0.9 k/uL (0-1.0); Monocytes % (A) 9 %; Neutrophils # (A) 6.9 k/uL (1.3-7.7); Neutrophils % (A) 68 %; Poikilocytosis Moderate; RBC 4.03 m/uL (4.30-5.90); RDW 20.8 % (11.5-15.5); WBC 10.2 k/uL (3.8-10.6); WBC (Perox) 10.18
[2017-01-26 16:26] LABS: MCV 80.4 fL (80.0-100.0)
[2017-01-26 16:50] LABS: % Iron Saturation 4.3 % (20-50)
== END | disposition home or self-care (01) ==
LOC: LABWHC1 15:42
PROVIDERS: ATTEND Internal Medicine Gastroenterology
DX: D50.9 Iron deficiency anemia, unspecified (principal)
CPT/HCPCS: 36415; 82728; 83540; 83550; 85025

== ENCOUNTER 2018-08-06 13:37 | Emergency (ER) | payer MEDICARE ==
[2018-08-06 13:46] VITALS: RESP 18
[2018-08-06] MEDS ORDERED: LIDOCAINE 1% INJ 10MG/ML (20 ML MDV) SQ ONE (14:13)
[2018-08-06] MEDS ORDERED: GELATIN SPONGE,ABSORB (LARGE) 1 EACH SPONGE TOPICAL STA (14:18)
[2018-08-06] MEDS ORDERED: DIPH,PERTUS(ACELL)TETVAC-LF 0.5 ML VIAL IM ONE (14:19)
--- NOTE | 2018-08-06 14:24 | ED ---
General Adult HPI - General Chief complaint: Wound/Laceration Stated complaint: lt middle finger lac Time Seen by Provider: 08/06/18 14:06 Source: patient, RN notes reviewed Mode of arrival: ambulatory Limitations: no limitations - History of Present Illness Initial comments: 67-year-old male presents to the emergency department for a chief complaint of laceration to the left third digit. Patient states he was using a table saw when he accidentally cut off the very tip of his finger. Patient denies any other injuries. Patient states his pain is tolerable. Patient is not up-to- date on tetanus.Patient has no other complaints at this time including shortness of breath, chest pain, abdominal pain, nausea or vomiting, headache, or visual changes. - Related Data Home Medications Medication Instructions Recorded Confirmed ALPRAZolam [Xanax] 0.25 mg PO BID PRN 10/15/14 11/23/16 HYDROcodone/APAP 10-325MG [[place] 1 tab PO TID PRN 10/15/14 11/23/16 10-325] Lisinopril [Zestril] 2.5 mg PO QAM 10/15/14 11/23/16 Warfarin [Coumadin] 10 mg PO SUMOWEFR 10/15/14 11/23/16 metFORMIN HCL [Glucophage] 500 mg PO QAM 10/15/14 11/23/16 buPROPion HCL [Wellbutrin SR] 150 mg PO QAM 01/21/15 11/23/16 traMADol HCl [Ultram] 50 mg PO BID PRN 01/21/15 11/23/16 Ergocalciferol (Vitamin D2) 50,000 unit PO SA 04/01/15 11/23/16 [Drisdol] Docusate [Colace] 100 mg PO DAILY PRN 11/05/15 11/23/16 Ipratropium-Albuterol Nebulize 3 ml INHALATION RT-QID PRN 11/05/15 11/23/16 [Duoneb 0.5 mg-3 mg/3 ml Soln] Multivitamins, Thera [Multivitamin 1 tab PO DAILY 11/05/15 11/23/16 (formulary)] Warfarin Sodium 12.5 mg PO TUTHSA 11/05/15 11/23/16 Cyanocobalamin [Vitamin B-12] 1,000 mcg PO DAILY 07/21/16 11/23/16 Vitamin E (Dl,Tocopheryl Acet) 400 unit PO DAILY 07/21/16 11/23/16 [Vitamin E] FLUoxetine HCL [Sarafem] 60 mg PO DAILY 08/01/16 11/23/16 Atorvastatin [Lipitor] 40 mg PO HS 11/23/16 11/23/16 Previous Rx's Medication Instructions Recorded Aspirin 81 mg PO DAILY #30 chew 08/06/16 Carvedilol [Coreg] 3.125 mg PO BID-W/MEALS #60 tab 08/06/16 Furosemide [Lasix] 40 mg PO DAILY #30 tablet 08/06/16 Pantoprazole [Protonix] 40 mg PO AC-BRKFST #30 tablet. 08/06/16 Allergies Allergy/AdvReac Type Severity Reaction Status Date / Time No Known Allergies Allergy Verified 08/06/18 13:43 Review of Systems ROS Statement: Those systems with pertinent positive or pertinent negative responses have been documented in the HPI. ROS Other: All systems not noted in ROS Statement are negative. Past Medical History Past Medical History: Diabetes Mellitus, Hypertension Additional Past Medical History / Comment(s): irregular heartbeat, varicose veins, 2 herniated disk/degenerative disks, leaky heart valve, "blood clots in the heart" History of Any Multi-Drug Resistant Organisms: None Reported Past Surgical History: Appendectomy, Bowel Resection, Cardiac Valve Replacement , Heart Catheterization, Orthopedic Surgery, Tonsillectomy Additional Past Surgical History / Comment(s): left shoulder surgery, surgery for sleep apnea, deana cataracts, Aortic Valve replacement (bovine) 06/2016 Past Anesthesia/Blood Transfusion Reactions: No Reported Reaction Past Psychological History: Depression Smoking Status: Former smoker Past Alcohol Use History: Occasional Past Drug Use History: None Reported - Past Family History Mother Family Medical History: No Reported History General Exam Limitations: no limitations General appearance: alert, in no apparent distress Head exam: Present: atraumatic, normocephalic, normal inspection Eye exam: Present: normal appearance, PERRL, EOMI. Absent: scleral icterus, conjunctival injection, periorbital swelling ENT exam: Present: normal exam, mucous membranes moist Neck exam: Present: normal inspection, full ROM Respiratory exam: Present: normal lung sounds bilaterally. Absent: respiratory distress, wheezes, rales, rhonchi, stridor Cardiovascular Exam: Present: regular rate, normal rhythm, normal heart sounds. Absent: systolic murmur, diastolic murmur, rubs, gallop, clicks GI/Abdominal exam: Present: normal bowel sounds Extremities exam: Present: full ROM (Full range of motion of the left third digit), normal capillary refill (Capillary refill less than 2 seconds and radial pulse 2+ in the left upper extremity), other (Sensation intact in the left upper extremity. Patient does have a superficial avulsion noted to the left third digit. No involvement of deep structures. Nail bed is intact. ) Neurological exam: Present: alert, oriented X3, CN II-XII intact Psychiatric exam: Present: normal affect, normal mood Course Vital Signs 08/06/18 13:43 Temperature 98.1 F Pulse Rate 56 L Respiratory 18 Rate Blood Pressure 139/78 O2 Sat by Pulse 96 Oximetry Medical Decision Making - Medical Decision Making 59-year-old male presents to the emergency department for a chief complaint of superficial avulsion to the left third digit. Suturing is not feasible at this time due to the nature of wound. X-ray shows no bony involvement. Patient has full range of motion. Neurovascular intact. The wound was cleaned thoroughly with sterile water. Gelfoam was applied. Bleeding is controlled. Tube gauze applied. Patient will remove tube gauze tomorrow and let the Gelfoam fall off on its own. He will return if he has any worsening symptoms. Disposition Clinical Impression: Laceration Disposition: HOME SELF-CARE Condition: Good Instructions (If sedation given, give patient instructions): Laceration (ED) Additional Instructions: Take gauze off tomorrow. The Gelfoam fall off on its own. Monitor for signs of infection such as spreading or streaking redness and return if these occur. Please follow up with primary care in 1-2 days. Please return here to the emergency department if you have any worsening symptoms. Is patient prescribed a controlled substance at d/c from ED?: No Referrals: Kami Goodman DO [Primary Care Provider] - 1-2 days Time of Disposition: 15:01
--- NOTE | 2018-08-06 14:45 | XR ---
EXAMINATION TYPE: Left third digit DATE OF EXAM: 08/06/2018 COMPARISON: NONE HISTORY: Pain TECHNIQUE: Three views are submitted. FINDINGS: There is a soft tissue injury involving the distal margin of the third digit. Osseous structures inta ct. Joint spaces preserved. IMPRESSION: 1. Soft tissue injury with no definite acute fracture.
[2018-08-06] MEDS ORDERED: HYDROcodone/APAP 5-325MG 1 EACH TAB PO STA (15:06)
[2018-08-06 15:16] VITALS: BP 118/78; PULSE 53; TEMP 97.2
== END 2018-08-06 15:15 | disposition home or self-care (01) ==
LOC: EC 13:37
DX: S61.213A Laceration without foreign body of left middle finger without damage to nail, initial encounter (principal); E11.9 Type 2 diabetes mellitus without complications; I10 Essential (primary) hypertension; I38 Endocarditis, valve unspecified; G47.30 Sleep apnea, unspecified; F32.9 Major depressive disorder, single episode, unspecified; Z95.2 Presence of prosthetic heart valve; Z95.818 Presence of other cardiac implants and grafts; Z87.891 Personal history of nicotine dependence; Z79.01 Long term (current) use of anticoagulants; Z79.84 Long term (current) use of oral hypoglycemic drugs; Z79.899 Other long term (current) drug therapy; Z23 Encounter for immunization; W27.0XXA Contact with workbench tool, initial encounter; Y93.89 Activity, other specified; Y92.009 Unspecified place in unspecified non-institutional (private) residence as the place of occurrence of the external cause
CPT/HCPCS: 90471; 90715; 99283

== ENCOUNTER 2018-08-30 17:09 | Emergency (ER) | payer MEDICARE ==
[2018-08-30 17:13] VITALS: TEMP 97.8
[2018-08-30] MEDS ORDERED: LIDOCAINE 1% INJ 10MG/ML (20 ML MDV) SQ ONE (17:23)
[2018-08-30 17:45] LABS: Basophils # (A) 0.1 k/uL (0-0.2); Basophils % (A) 1 %; Eosinophils # (A) 0.3 k/uL (0-0.7); Eosinophils % (A) 3 %; HCT 45.2 % (39.0-53.0); HGB 14.6 gm/dL (13.0-17.5); Lymphocytes # (A) 1.9 k/uL (1.0-4.8); Lymphocytes % (A) 20 %; MCH 30.4 pg (25.0-35.0); MCHC 32.2 g/dL (31.0-37.0); MCV 94.4 fL (80.0-100.0); Mean Platelet Volume 6.5; Monocytes % (A) 10 %; Neutrophils % (A) 64 %; Platelet Count 274 k/uL (150-450); RBC 4.79 m/uL (4.30-5.90); RDW 13.8 % (11.5-15.5); WBC 9.4 k/uL (3.8-10.6)
[2018-08-30 17:51] LABS: INR 4.2 (<1.2); Prothrombin Time 40.3 sec (9.0-12.0)
[2018-08-30 17:54] LABS: Anion Gap 8 mmol/L; Blood Urea Nitrogen 26 mg/dL (9-20); Calcium 9.5 mg/dL (8.4-10.2); Carbon Dioxide 28 mmol/L (22-30); Chloride 106 mmol/L (98-107); Glucose 141 mg/dL (74-99); Potassium 4.7 mmol/L (3.5-5.1); Sodium 142 mmol/L (137-145)
--- NOTE | 2018-08-30 18:01 | ED ---
General Adult HPI - General Chief complaint: Wound/Laceration Stated complaint: Hand injury/laceration Time Seen by Provider: 08/30/18 17:16 Source: patient Mode of arrival: ambulatory Limitations: no limitations - History of Present Illness Initial comments: Patient is a 67-year-old male who presents with a chief complaint of lacerations to the fingertips of his left hand. The patient was working with a table saw and accidentally cut his fingers. This happened about an hour prior to arrival. Patient states that he has 8 out of 10 pain, aching in nature. He denies any other injuries. His tetanus is up-to-date as of 2 weeks ago. Patient is on Coumadin, his INR today is 4.2. This is previously known, he was instructed to skip 2 doses of his Coumadin. - Related Data Home Medications Medication Instructions Recorded Confirmed Lisinopril [Zestril] 2.5 mg PO QAM 10/15/14 08/30/18 Warfarin [Coumadin] 10 mg PO SUMOWEFR 10/15/14 08/30/18 metFORMIN HCL [Glucophage] 500 mg PO QAM 10/15/14 08/30/18 buPROPion HCL [Wellbutrin SR] 150 mg PO QAM 01/21/15 08/30/18 Ergocalciferol (Vitamin D2) 50,000 unit PO SA 04/01/15 08/30/18 [Drisdol] FLUoxetine HCL [Sarafem] 60 mg PO DAILY 08/01/16 08/30/18 Atorvastatin [Lipitor] 40 mg PO HS 11/23/16 08/30/18 OLANZapine [ZyPREXA] 5 mg PO DAILY 08/30/18 08/30/18 Warfarin [Coumadin] 7.5 mg PO TUTH 08/30/18 08/30/18 tiZANidine [Zanaflex] 2 mg PO HS 08/30/18 08/30/18 Previous Rx's Medication Instructions Recorded Carvedilol [Coreg] 3.125 mg PO BID-W/MEALS #60 tab 08/06/16 Furosemide [Lasix] 40 mg PO DAILY #30 tablet 08/06/16 Pantoprazole [Protonix] 40 mg PO AC-BRKFST #30 tablet. 08/06/16 Acetaminophen [Tylenol] 1,000 mg PO Q6H PRN #20 tab 08/30/18 Cephalexin [Keflex] 500 mg PO Q6HR 7 Days #28 cap 08/30/18 Allergies Allergy/AdvReac Type Severity Reaction Status Date / Time No Known Allergies Allergy Verified 08/30/18 17:41 Review of Systems ROS Statement: Those systems with pertinent positive or pertinent negative responses have been documented in the HPI. ROS Other: All systems not noted in ROS Statement are negative. Skin: Reports: lesions Past Medical History Past Medical History: Diabetes Mellitus, Hypertension Additional Past Medical History / Comment(s): irregular heartbeat, varicose vein s, 2 herniated disk/degenerative disks, leaky heart valve, "blood clots in the heart" History of Any Multi-Drug Resistant Organisms: None Reported Past Surgical History: Appendectomy, Bowel Resection, Cardiac Valve Replacement, Heart Catheterization, Orthopedic Surgery, Tonsillectomy Additional Past Surgical History / Comment(s): left shoulder surgery, surgery for sleep apnea, deana cataracts, Aortic Valve replacement (bovine) 06/2016 Past Anesthesia/Blood Transfusion Reactions: No Reported Reaction Past Psychological History: Depression Smoking Status: Former smoker Past Alcohol Use History: Occasional Past Drug Use History: None Reported - Past Family History Mother Family Medical History: No Reported History General Exam Limitations: no limitations General appearance: alert, in no apparent distress Head exam: Present: atraumatic, normocephalic Eye exam: Present: normal appearance ENT exam: Present: normal exam Neck exam: Present: normal inspection Respiratory exam: Present: normal lung sounds bilaterally. Absent: respiratory distress, wheezes Cardiovascular Exam: Present: regular rate, normal rhythm GI/Abdominal exam: Present: soft. Absent: distended, tenderness Rectal exam: Present: deferred Extremities exam: Present: other (Patient is linear lacerations to the fingertips of his left hand, digits 2, 3, and 4) Back exam: Present: normal inspection Neurological exam: Present: alert, oriented X3 Psychiatric exam: Present: normal affect, normal mood Skin exam: Present: warm, dry, other (See musculoskeletal exam) Course Vital Signs 08/30/18 17:11 Temperature 97.8 F Pulse Rate 71 Respiratory 20 Rate Blood Pressure 198/90 O2 Sat by Pulse 98 Oximetry Procedures - Laceration Laceration #1 Consent Obtained: verbal consent Indication: laceration Site: hand Description: linear, avulsion, irregular Anesthetic Used: lidocaine 1% Pre-repair: wound explored, irrigated extensively Type of Sutures: nylon Size of Sutures: 5-0 Number of Sutures: 10 Technique: simple, interrupted Complications: bleeding Patient Tolerated Procedure: well Additional Comments: 3 lacerations and 1 avulsion. linear, lacs on fingers 2,3, and 4 at the tips, avulsion on the 4th digit. boarders irregular. fingers 2 and 3 were sutured, 4th finger did not have margins intact to suture. gelfoam applied to each finger and finished with tube gauze. Medical Decision Making - Medical Decision Making Patient presents with a chief complaint of lacerations to the tips of fingers 2, 3, and 4 after accidentally cutting them with a table saw. Wound was repaired as per the procedure note. Gelfoam applied. Case discussed with orthopedic PA as x-rays show a distal tuft fracture. Patient given a dose of Ancef in the emergency department. He'll be discharged with Keflex 4 times a day for 7 days. He was given orthopedic follow-up. Patient instructed to skip his next 2 doses of Coumadin. He was given one [place] tablet in the emergency department for pain, prescribed Tylenol for pain relief at home. - Lab Data Result diagrams: 08/30/18 17:30 08/30/18 17:30 Lab Results 08/30/18 08/30/18 08/30/18 Range/Units 17:30 17:30 17:30 WBC 9.4 (3.8-10.6) k/uL RBC 4.79 (4.30-5.90) m/uL Hgb 14.6 (13.0-17.5) gm/dL Hct 45.2 (39.0-53.0) % MCV 94.4 (80.0-100.0) fL MCH 30.4 (25.0-35.0) pg MCHC 32.2 (31.0-37.0) g/dL RDW 13.8 (11.5-15.5) % Plt Count 274 (150-450) k/uL Neutrophils % 64 % Lymphocytes % 20 % Monocytes % 10 % Eosinophils % 3 % Basophils % 1 % Neutrophils # 6.0 (1.3-7.7) k/uL Lymphocytes # 1.9 (1.0-4.8) k/uL Monocytes # 1.0 (0-1.0) k/uL Eosinophils # 0.3 (0-0.7) k/uL Basophils # 0.1 (0-0.2) k/uL PT 40.3 H (9.0-12.0) sec INR 4.2 H (<1.2) Sodium 142 (137-145) mmol/L Potassium 4.7 (3.5-5.1) mmol/L Chloride 106 (98-107) mmol/L Carbon Dioxide 28 (22-30) mmol/L Anion Gap 8 mmol/L BUN 26 H (9-20) mg/dL Creatinine 0.69 (0.66-1.25) mg/dL Est GFR (CKD-EPI)AfAm >90 (>60 ml/min/1.73 sqM) Est GFR (CKD-EPI)NonAf >90 (>60 ml/min/1.73 sqM) Glucose 141 H (74-99) mg/dL Calcium 9.5 (8.4-10.2) mg/dL Disposition Clinical Impression: Laceration Disposition: HOME SELF-CARE Condition: Good Instructions (If sedation given, give patient instructions): Care For Your Stitches (ED) Is patient prescribed a controlled substance at d/c from ED?: No Referrals: Kami Goodman DO [Primary Care Provider] - 1-2 days Angus Celeste MD [STAFF PHYSICIAN] - 1-2 days
[2018-08-30] MEDS ORDERED: ceFAZolin IN SWFI 2 GM/20 ML SYRINGE IVP ONE (18:07)
--- NOTE | 2018-08-30 18:10 | XR ---
EXAMINATION TYPE: XR hand complete LT DATE OF EXAM: 08/30/2018 COMPARISON: NONE HISTORY: Laceration to second and third and fourth digits TECHNIQUE: 3 views FINDINGS: There is soft tissue deformity at the tip of the middle finger and ring finger consistent w ith lacerations. There are small densities in the soft tissues that could be small fragments of fract ure of the tuft of the distal phalanx of the middle finger index finger and the ring finger. There is no dislocation. IMPRESSION: Laceration deformity with multiple pelvic fractures and tiny fracture fragments.
[2018-08-30] MEDS ORDERED: GELATIN SPONGE,ABSORB (LARGE) 1 EACH SPONGE TOPICAL STA (18:41)
[2018-08-30] MEDS ORDERED: HYDROcodone/APAP 5-325MG 1 EACH TAB PO STA (18:53)
[2018-08-30 19:21] VITALS: BP 145/89; PULSE 57; RESP 18
--- NOTE | 2018-08-31 04:50 | CDI ---
Documentation Clarification OP Dear Fantasma PAN, DO Please provide fingers laceration repair length. Thank you, Andrez Sawyer Fur Repairer If you have any questions, please contact Business Liaison Officer at [phone] [facility]
== END 2018-08-30 19:33 | disposition home or self-care (01) ==
LOC: EC 17:09
DX: S61.211A Laceration without foreign body of left index finger without damage to nail, initial encounter (principal); S61.213A Laceration without foreign body of left middle finger without damage to nail, initial encounter; S61.215A Laceration without foreign body of left ring finger without damage to nail, initial encounter; E11.9 Type 2 diabetes mellitus without complications; I10 Essential (primary) hypertension; F32.9 Major depressive disorder, single episode, unspecified; Z95.2 Presence of prosthetic heart valve; Z95.818 Presence of other cardiac implants and grafts; Z87.891 Personal history of nicotine dependence; Z79.01 Long term (current) use of anticoagulants; Z79.84 Long term (current) use of oral hypoglycemic drugs; Z79.899 Other long term (current) drug therapy; W27.0XXA Contact with workbench tool, initial encounter; Y93.89 Activity, other specified; Y92.009 Unspecified place in unspecified non-institutional (private) residence as the place of occurrence of the external cause
CPT/HCPCS: 99283; 12001; 96374; 36415; 80048; 85025; 85610; 73130; J2001; J0690

== ENCOUNTER 2018-12-21 13:35 | Inpatient (IN) | payer MEDICARE ==
--- NOTE | 2018-12-21 14:08 | ED ---
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 Patient was found to have a low heart rate, as low as 38 and advised coming to the emergency department. Patient states he has been having exertional dyspnea over the past several weeks to months. Patient states he does get associated mild chest pressure, last episode was walking into the hospital. Patient states chest pressure does radiate towards left arm. Patient does have some associated sweating at times. No nausea. Patient does have known history of atrial fibrillation and is on anticoagulation. - Related Data Home Medications Medication Instructions Recorded Confirmed Lisinopril [Zestril] 2.5 mg PO QAM 10/15/14 12/21/18 Warfarin [Coumadin] 10 mg PO SUMOWEFR 10/15/14 12/21/18 metFORMIN HCL [Glucophage] 500 mg PO QAM 10/15/14 12/21/18 FLUoxetine HCL [Sarafem] 60 mg PO DAILY 08/01/16 12/21/18 Atorvastatin [Lipitor] 40 mg PO HS 11/23/16 12/21/18 OLANZapine [ZyPREXA] 5 mg PO DAILY 08/30/18 12/21/18 Warfarin [Coumadin] 7.5 mg PO TUTH 08/30/18 12/21/18 Albuterol Inhaler [Ventolin Hfa 1 - 2 puff INHALATION RT-Q6H PRN 12/21/18 12/21/18 Inhaler] Cyanocobalamin (Vitamin B-12) 1,000 mcg PO DAILY 12/21/18 12/21/18 [Vitamin B-12] Multivitamins, Thera [Multivitamin 1 tab PO DAILY 12/21/18 12/21/18 (formulary)] Turmeric Root Extract [Turmeric] 1,000 mg PO DAILY 12/21/18 12/21/18 Umeclidinium Brm/Vilanterol Tr 1 puff INHALATION RT-DAILY 12/21/18 12/21/18 [Anoro Ellipta 62.5-25 Mcg INH] Vitamin A Acetate [Vitamin A] 10,000 unit SL DAILY 12/21/18 12/21/18 buPROPion XL [Wellbutrin Xl] 150 mg PO DAILY 12/21/18 12/21/18 Previous Rx's Medication Instructions Recorded Carvedilol [Coreg] 3.125 mg PO BID-W/MEALS #60 tab 08/06/16 Furosemide [Lasix] 40 mg PO DAILY #30 tablet 08/06/16 Pantoprazole [Protonix] 40 mg PO AC-BRKFST #30 tablet. 08/06/16 Allergies Allergy/AdvReac Type Severity Reaction Status Date / Time No Known Allergies Allergy Verified 12/21/18 14:19 Review of Systems ROS Statement: Those systems with pertinent positive or pertinent negative responses have been documented in the HPI. ROS Other: All systems not noted in ROS Statement are negative. Constitutional: Denies: fever Eyes: Denies: eye pain ENT: Denies: ear pain Respiratory: Reports: as per HPI Cardiovascular: Reports: as per HPI Endocrine: Reports: fatigue Gastrointestinal: Denies: abdominal pain, nausea Genitourinary: Denies: dysuria Musculoskeletal: Denies: back pain Skin: Denies: rash Neurological: Denies: weakness Past Medical History Past Medical History: Diabetes Mellitus, Hypertension Additional Past Medical History / Comment(s): irregular heartbeat, varicose veins, 2 herniated disk/degenerative disks, leaky heart valve, "blood clots in the heart" History of Any Multi-Drug Resistant Organisms: None Reported Past Surgical History: Appendectomy, Bowel Resection, Cardiac Valve Replacement, Heart Catheterization, Orthopedic Surgery, Tonsillectomy Additional Past Surgical History / Comment(s): left shoulder surgery, surgery for sleep apnea, deana cataracts, Aortic Valve replacement (bovine) 06/2016 Past Anesthesia/Blood Transfusion Reactions: No Reported Reaction Past Psychological History: Depression Smoking Status: Former smoker Past Alcohol Use History: Occasional Past Drug Use History: None Reported - Past Family History Mother Family Medical History: No Reported History General Exam Limitations: no limitations General appearance: alert, in no apparent distress, obese Head exam: Present: atraumatic Eye exam: Present: normal appearance Neck exam: Present: normal inspection Respiratory exam: Present: normal lung sounds bilaterally Cardiovascular Exam: Present: bradycardia, irregular rhythm Expanded Peripheral pulses: 2+: Radial (R), Radial (L), Dorsalis Pedis (R), Dorsalis Pedis (L) GI/Abdominal exam: Present: soft. Absent: tenderness Extremities exam: Present: pedal edema (+1 bilateral). Absent: calf tenderness Neurological exam: Present: alert Psychiatric exam: Present: normal affect, normal mood Skin exam: Present: normal color Course Vital Signs 12/21/18 13:37 Temperature 97.9 F Pulse Rate 42 L Respiratory 18 Rate Blood Pressure 167/88 O2 Sat by Pulse 96 Oximetry EKG Findings - EKG Comments: EKG Findings:: A. fib with slow ventricular response, rate 48. QRS 94. QT 44. QTC 432. Normal axis. Normal QRS. Mild lateral ST depression. Medical Decision Making - Medical Decision Making Patient reevaluated and resting comfortably in bed. Heart rate is 39. Patient and family updated on results and plan. Case was discussed in detail with Dr. Goodman, who will admit. - Lab Data Result diagrams: 12/21/18 14:18 12/21/18 14:18 Lab Results 12/21/18 12/21/18 12/21/18 Range/Units 14:18 14:18 14:18 WBC 7.5 (3.8-10.6) k/uL RBC 4.79 (4.30-5.90) m/uL Hgb 13.8 (13.0-17.5) gm/dL Hct 42.7 (39.0-53.0) % MCV 89.3 (80.0-100.0) fL MCH 28.8 (25.0-35.0) pg MCHC 32.2 (31.0-37.0) g/dL RDW 15.4 (11.5-15.5) % Plt Count 228 (150-450) k/uL Neutrophils % 61 % Lymphocytes % 22 % Monocytes % 9 % Eosinophils % 3 % Basophils % 1 % Neutrophils # 4.6 (1.3-7.7) k/uL Lymphocytes # 1.7 (1.0-4.8) k/uL Monocytes # 0.7 (0-1.0) k/uL Eosinophils # 0.2 (0-0.7) k/uL Basophils # 0.1 (0-0.2) k/uL PT (9.0-12.0) sec INR (<1.2) APTT (22.0-30.0) sec Sodium 141 (137-145) mmol/L Potassium 4.3 (3.5-5.1) mmol/L Chloride 108 H (98-107) mmol/L Carbon Dioxide 27 (22-30) mmol/L Anion Gap 6 mmol/L BUN 19 (9-20) mg/dL Creatinine 0.62 L (0.66-1.25) mg/dL Est GFR (CKD-EPI)AfAm >90 (>60 ml/min/1.73 sqM) Est GFR (CKD-EPI)NonAf >90 (>60 ml/min/1.73 sqM) Glucose 112 H (74-99) mg/dL Calcium 8.9 (8.4-10.2) mg/dL Magnesium 1.9 (1.6-2.3) mg/dL Total Bilirubin 0.5 (0.2-1.3) mg/dL AST 34 (17-59) U/L ALT 27 (21-72) U/L Alkaline Phosphatase 90 (38-126) U/L Troponin I (0.000-0.034) ng/mL NT-Pro-B Natriuret Pep 531 pg/mL Total Protein 7.0 (6.3-8.2) g/dL Albumin 3.9 (3.5-5.0) g/dL TSH 0.984 (0.465-4.680) mIU/L Free T4 1.06 (0.78-2.19) ng/dL Free T3 pg/mL 4.0 (2.8-5.3) pg/ml 12/21/18 12/21/18 Range/Units 14:18 14:18 WBC (3.8-10.6) k/uL RBC (4.30-5.90) m/uL Hgb (13.0-17.5) gm/dL Hct (39.0-53.0) % MCV (80.0-100.0) fL MCH (25.0-35.0) pg MCHC (31.0-37.0) g/dL RDW (11.5-15.5) % Plt Count (150-450) k/uL Neutrophils % % Lymphocytes % % Monocytes % % Eosinophils % % Basophils % % Neutrophils # (1.3-7.7) k/uL Lymphocytes # (1.0-4.8) k/uL Monocytes # (0-1.0) k/uL Eosinophils # (0-0.7) k/uL Basophils # (0-0.2) k/uL PT 28.0 H (9.0-12.0) sec INR 2.9 H (<1.2) APTT 40.1 H (22.0-30.0) sec Sodium (137-145) mmol/L Potassium (3.5-5.1) mmol/L Chloride (98-107) mmol/L Carbon Dioxide (22-30) mmol/L Anion Gap mmol/L BUN (9-20) mg/dL Creatinine (0.66-1.25) mg/dL Est GFR (CKD-EPI)AfAm (>60 ml/min/1.73 sqM) Est GFR (CKD-EPI)NonAf (>60 ml/min/1.73 sqM) Glucose (74-99) mg/dL Calcium (8.4-10.2) mg/dL Magnesium (1.6-2.3) mg/dL Total Bilirubin (0.2-1.3) mg/dL AST (17-59) U/L ALT (21-72) U/L Alkaline Phosphatase (38-126) U/L Troponin I <0.012 (0.000-0.034) ng/mL NT-Pro-B Natriuret Pep pg/mL Total Protein (6.3-8.2) g/dL Albumin (3.5-5.0) g/dL TSH (0.465-4.680) mIU/L Free T4 (0.78-2.19) ng/dL Free T3 pg/mL (2.8-5.3) pg/ml - Radiology Data Radiology results: image reviewed (Chest x-ray shows cardiomegaly with mildly coarse interstitium.) Disposition Clinical Impression: Bradycardia Disposition: ADMITTED IP TO THIS HOSP Is patient prescribed a controlled substance at d/c from ED?: No Referrals: Kami Goodman DO [Primary Care Provider] - 1-2 days Decision Time: 15:28
[2018-12-21 14:38] LABS: Basophils # (A) 0.1 k/uL (0-0.2); Basophils % (A) 1 %; Eosinophils # (A) 0.2 k/uL (0-0.7); Eosinophils % (A) 3 %; HCT 42.7 % (39.0-53.0); HGB 13.8 gm/dL (13.0-17.5); Lymphocytes # (A) 1.7 k/uL (1.0-4.8); Lymphocytes % (A) 22 %; MCH 28.8 pg (25.0-35.0); MCHC 32.2 g/dL (31.0-37.0); MCV 89.3 fL (80.0-100.0); Mean Platelet Volume 6.9; Monocytes # (A) 0.7 k/uL (0-1.0); Monocytes % (A) 9 %; Neutrophils # (A) 4.6 k/uL (1.3-7.7); Neutrophils % (A) 61 %; Platelet Count 228 k/uL (150-450); RBC 4.79 m/uL (4.30-5.90); RDW 15.4 % (11.5-15.5); WBC 7.5 k/uL (3.8-10.6)
[2018-12-21 14:43] LABS: INR 2.9 (<1.2); Partial Thromboplastin Time 40.1 sec (22.0-30.0)
[2018-12-21 14:48] LABS: ALT 27 U/L (21-72); AST 34 U/L (17-59); African American GFR (CKD) >90 (>60 ml/min/1.73 sqM); Albumin 3.9 g/dL (3.5-5.0); Alkaline Phosphatase 90 U/L (38-126); Anion Gap 6 mmol/L; Blood Urea Nitrogen 19 mg/dL (9-20); Calcium 8.9 mg/dL (8.4-10.2); Carbon Dioxide 27 mmol/L (22-30); Chloride 108 mmol/L (98-107); Glucose 112 mg/dL (74-99); Magnesium 1.9 mg/dL (1.6-2.3); Potassium 4.3 mmol/L (3.5-5.1); Sodium 141 mmol/L (137-145); Total Bilirubin 0.5 mg/dL (0.2-1.3)
[2018-12-21 15:05] LABS: T4, Free (Free Thyroxine) 1.06 ng/dL (0.78-2.19)
--- NOTE | 2018-12-21 15:09 | XR ---
EXAMINATION TYPE: XR chest 2V DATE OF EXAM: 12/21/2018 COMPARISON: 11/23/2016 TECHNIQUE: PA and lateral views submitted. HISTORY: Chest pain FINDINGS: The lungs are clear and there is no pneumothorax, pleural effusion, or focal pneumonia. Heart enlar ged and is postoperative changes. Interstitium is mildly coarsened. Biapical pleural thickening. Hype rtrophic and degenerative change of the spine. IMPRESSION: 1. Cardiomegaly correlate for mild central venous congestion..
[2018-12-21] MEDS ORDERED: NALOXONE 0.4 MG/ML 1 ML VIAL IV PRN (15:29)
[2018-12-21] MEDS: SODIUM CHLORIDE 0.9% 1,000 ML IV SCH (16:40)
[2018-12-21 18:55] VITALS: BMI 53.1
[2018-12-21] MEDS ORDERED: IPRATROPIUM-ALBUTEROL 3 ML NEB INHALATION PRN (20:52)
[2018-12-21] MEDS: INSULIN ASPART (NovoLOG) 100 UNIT/ML VIAL SQ SCH ×2 (21:10→23:03)
[2018-12-21 21:14] LABS: Glucose,Whole Blood 104 mg/dL (75-99)
[2018-12-21] MEDS: ATORVASTATIN 40 MG TAB PO SCH (23:02)
[2018-12-22 06:42] LABS: Glucose,Whole Blood 120 mg/dL (75-99)
[2018-12-22] MEDS: PANTOPRAZOLE 40 MG TABLET PO SCH (06:55)
[2018-12-22] MEDS: INSULIN ASPART (NovoLOG) 100 UNIT/ML VIAL SQ SCH ×5 (08:07→21:47)
[2018-12-22] MEDS: ENOXAPARIN 40 MG/0.4 ML SYRINGE SQ SCH (08:20)
[2018-12-22] MEDS: buPROPion XL 150 MG TAB.ER.24H PO SCH (08:20)
[2018-12-22] MEDS: FUROSEMIDE 40 MG TAB PO SCH (08:20)
[2018-12-22] MEDS: FLUoxetine HCL 20 MG CAP PO SCH (08:20)
[2018-12-22] MEDS: OLANZapine 5 MG TAB PO SCH (08:20)
[2018-12-22] MEDS ORDERED: LISINOPRIL 2.5 MG TAB PO SCH (09:00)
--- NOTE | 2018-12-22 10:54 | P.HPIM ---
History of Present Illness H&P Date: 12/21/18 Chief Complaint: fatigue, bradycardia Neo Gaston is a 68-year-old male with a past medical history significant for COPD, atrial fibrillation, coronary artery disease, s/p aortic valve replacement, type 2 diabetes, depression who presented to the emergency department after office visit noted symptomatic bradycardia with heart rate in the low 40s. Patient states for almost a year he has felt fatigued and short of breath with any amount of exertion, and therefore has been very sedentary. He has taken his pulse at home and often notes bradycardia. He endorses inte rmittent chest pain, and chest pressure radiating into his left arm which last occurred more than a month ago. In the past it has woken him up out of sleep. He denies orthopnea, but does endorse leg swelling which is controlled well with Lasix. In the emergency department, EKG revealed complete heart block and ventricular rate of 48 bpm, normal electrolytes, negative troponin, and BNP 500. Review of Systems All systems: negative Constitutional: Reports fatigue, Reports lethargy, Denies chills, Denies fever Eyes: denies blurred vision, denies pain Ears, nose, mouth and throat: Denies headache, Denies sore throat Cardiovascular: Reports chest pain, Reports leg edema, Reports shortness of breath, Denies palpitations Respiratory: Denies cough Gastrointestinal: Denies abdominal pain, Denies diarrhea, Denies nausea, Denies vomiting Musculoskeletal: Denies myalgias Integumentary: Denies pruritus, Denies rash Neurological: Denies numbness, Denies weakness Psychiatric: Denies anxiety, Denies depression Endocrine: Denies fatigue, Denies weight change Past Medical History Past Medical History: Diabetes Mellitus, Hypertension Additional Past Medical History / Comment(s): irregular heartbeat, varicose veins, 2 herniated disk/degenerative disks, leaky heart valve, "blood clots in the heart" History of Any Multi-Drug Resistant Organisms: None Reported Past Surgical History: Appendectomy, Bowel Resection, Cardiac Valve Replacement, Heart Catheterization, Orthopedic Surgery, Tonsillectomy Additional Past Surgical History / Comment(s): left shoulder surgery, surgery for sleep apnea, deana cataracts, Aortic Valve replacement (bovine) 06/2016 Past Anesthesia/Blood Transfusion Reactions: No Reported Reaction Past Psychological History: Depression Smoking Status: Former smoker Past Alcohol Use History: Occasional Additional Past Alcohol Use History / Comment(s): quit smoking 2014. smoked for 30 yrs, < 1 PPD Past Drug Use History: None Reported - Past Family History Mother Family Medical History: No Reported History Medications and Allergies Home Medications Medication Instructions Recorded Confirmed Type Lisinopril [Zestril] 2.5 mg PO QAM 10/15/14 12/21/18 History Warfarin [Coumadin] 10 mg PO SUMOWEFR 10/15/14 12/21/18 History metFORMIN HCL [Glucophage] 500 mg PO QAM 10/15/14 12/21/18 History FLUoxetine HCL [Sarafem] 60 mg PO DAILY 08/01/16 12/21/18 History Carvedilol [Coreg] 3.125 mg PO BID-W/MEALS #60 tab 08/06/16 12/21/18 Rx Furosemide [Lasix] 40 mg PO DAILY #30 tablet 08/06/16 12/21/18 Rx Pantoprazole [Protonix] 40 mg PO AC-BRKFST #30 tablet. 08/06/16 12/21/18 Rx Atorvastatin [Lipitor] 40 mg PO HS 11/23/16 12/21/18 History OLANZapine [ZyPREXA] 5 mg PO DAILY 08/30/18 12/21/18 History Warfarin [Coumadin] 7.5 mg PO TUTH 08/30/18 12/21/18 History Albuterol Inhaler [Ventolin Hfa 1 - 2 puff INHALATION RT-Q6H PRN 12/21/18 12/21/18 History Inhaler] Cyanocobalamin (Vitamin B-12) 1,000 mcg PO DAILY 12/21/18 12/21/18 History [Vitamin B-12] Multivitamins, Thera [Multivitamin 1 tab PO DAILY 12/21/18 12/21/18 History (formulary)] Turmeric Root Extract [Turmeric] 1,000 mg PO DAILY 12/21/18 12/21/18 History Umeclidinium Brm/Vilanterol Tr 1 puff INHALATION RT-DAILY 12/21/18 12/21/18 History [Anoro Ellipta 62.5-25 Mcg INH] Vitamin A Acetate [Vitamin A] 10,000 unit SL DAILY 12/21/18 12/21/18 History buPROPion XL [Wellbutrin Xl] 150 mg PO DAILY 12/21/18 12/21/18 History Allergies Allergy/AdvReac Type Severity Reaction Status Date / Time No Known Allergies Allergy Verified 12/21/18 14:19 Physical Exam Vitals: Vital Signs Temp Pulse Pulse Resp BP BP Pulse Ox 12/22/18 08:10 48 L 12/22/18 08:04 50 L 12/22/18 08:00 45 L 12/22/18 07:56 96.4 F L 45 L 18 147/67 97 12/22/18 04:00 43 L 20 12/22/18 00:00 43 L 20 120/65 97 12/21/18 22:16 98 12/21/18 20:00 98.0 F 57 L 20 145/71 97 12/21/18 19:22 48 L 18 172/85 94 L 12/21/18 13:37 97.9 F 42 L 18 167/88 96 Intake and Output 12/21/18 12/22/18 12/22/18 22:59 06:59 14:59 Intake Total 222 160 Balance 222 160 Intake: Intake, IV Titration 160 Amount Sodium Chloride 0.9% 1, 160 000 ml @ 20 mls/hr IV . Q24H [facility] Rx#:[id number] Oral 222 Other: # Voids 2 Weight 158.4 kg General: Morbidly obese, well developed, NAD. Vitals reviewed Eyes: PERRL, EOMI, conjunctiva normal HENT: normocephalic, mucus membranes moist Neck: supple, no JVD Lungs: normal respiratory effort, no wheezes or rales CV: Bardycardia, no murmur. Peripheral pulses 1+ Abdomen: central obesity, soft, nondistended, no organomegaly Lymph: no cervical or axillary LAD Skin: warm and dry Neuro: A&Ox3, normal mood and affect Results CBC & Chem 7: 12/21/18 14:18 12/21/18 14:18 Labs: Abnormal Lab Results - Last 24 Hours (Table) 12/21/18 12/21/18 12/21/18 Range/Units 14:18 14:18 21:13 PT 28.0 H (9.0-12.0) sec INR 2.9 H (<1.2) APTT 40.1 H (22.0-30.0) sec Chloride 108 H (98-107) mmol/L Creatinine 0.62 L (0.66-1.25) mg/dL Glucose 112 H (74-99) mg/dL POC Glucose (mg/dL) 104 H (75-99) mg/dL 12/22/18 Range/Units 06:41 PT (9.0-12.0) sec INR (<1.2) APTT (22.0-30.0) sec Chloride (98-107) mmol/L Creatinine (0.66-1.25) mg/dL Glucose (74-99) mg/dL POC Glucose (mg/dL) 120 H (75-99) mg/dL Thrombosis Risk Factor Assmnt - Choose All That Apply Each Factor Represents 1 point: Abnormal pulmonary function (COPD) Other Risk Factors: Yes Each Risk Factor Represents 2 Points: Age 61-74 years Thrombosis Risk Factor Assessment Total Risk Factor Score: 3 Thrombosis Risk Factor Assessment Level: Moderate Risk Assessment and Plan (1) Bradycardia Current Visit: Yes Status: Acute Code(s): R00.1 - BRADYCARDIA, UNSPECIFIED SNOMED Code(s): 85416622 (2) S/P AVR (aortic valve replacement) Current Visit: No Status: Acute Code(s): Z95.2 - PRESENCE OF PROSTHETIC HEART VALVE SNOMED Code(s): 4192297490805 (3) Chronic atrial fibrillation Current Visit: No Status: Chronic Code(s): I48.2 - CHRONIC ATRIAL FIBRILLATION SNOMED Code(s): 743953769 Plan: 1. Bradycardia. Pt with history of dilated cardiomyopathy, chronic A fib and s/p AVR. Per EKG appears to be in 3rd degree heart block but possibly A fib with slow ventricular response. Cardiology consulted and will await further recs 2. Dilated cardiomyopathy and Diastolic CHF. Continue home lasix 40 mg daily 3. HTN, continue lipitor, hold coreg with bradycardia 4. Depression, cont home meds
--- NOTE | 2018-12-22 11:04 | P.PN ---
Subjective Progress Note Date: 12/22/18 Neo Gaston is a 68-year-old male with a past medical history significant for COPD, atrial fibrillation, coronary artery disease, s/p aortic valve replacement, type 2 diabetes, depression who presented to the emergency department after office visit noted symptomatic bradycardia with heart rate in the low 40s. Patient states for almost a year he has felt fatigued and short of breath with any amount of exertion, and therefore has been very sedentary. He has taken his pulse at home and often notes bradycardia. He endorses intermittent chest pain, and chest pressure radiating into his left arm which last occurred more than a month ago. In the past it has woken him up out of sleep. He denies orthopnea, but does endorse leg swelling which is controlled well with Lasix. In the emergency department, EKG revealed complete heart block and ventricular rate of 48 bpm, normal electrolytes, negative troponin, and BNP 500. 7/20. Pt is upright in chair today, denies chest pain or shortness of breath with rest but continues to complain of AUGUSTIN and fatigue. Cardiology has echo ordered for today. Objective - Vital Signs Vital signs: Vital Signs Temp 96.4 F L 12/22/18 07:56 Pulse 48 L 12/22/18 08:10 Resp 18 12/22/18 07:56 BP 147/67 12/22/18 07:56 Pulse Ox 97 12/22/18 07:56 Intake & Output 12/21/18 12/22/18 12/22/18 18:59 06:59 18:59 Intake Total 222 400 Balance 222 400 Weight 158.757 kg 158.4 kg Intake: Intake, IV Titration 160 Amount Sodium Chloride 0.9% 1, 160 000 ml @ 20 mls/hr IV . Q24H [facility] Rx#:[id number] Oral 222 240 Other: # Voids 2 - Exam Constitutional: Obese, upright in chair, NAD CV: bradycardia Lungs: clear throughout Ext: venous stasis dermatitis, no edema - Labs CBC & Chem 7: 12/21/18 14:18 12/21/18 14:18 Labs: Abnormal Lab Results - Last 24 Hours (Table) 12/21/18 12/21/18 12/21/18 Range/Units 14:18 14:18 21:13 PT 28.0 H (9.0-12.0) sec INR 2.9 H (<1.2) APTT 40.1 H (22.0-30.0) sec Chloride 108 H (98-107) mmol/L Creatinine 0.62 L (0.66-1.25) mg/dL Glucose 112 H (74-99) mg/dL POC Glucose (mg/dL) 104 H (75-99) mg/dL 12/22/18 Range/Units 06:41 PT (9.0-12.0) sec INR (<1.2) APTT (22.0-30.0) sec Chloride (98-107) mmol/L Creatinine (0.66-1.25) mg/dL Glucose (74-99) mg/dL POC Glucose (mg/dL) 120 H (75-99) mg/dL Assessment and Plan (1) Bradycardia Current Visit: Yes Status: Acute Code(s): R00.1 - BRADYCARDIA, UNSPECIFIED SNOMED Code(s): 35174751 (2) S/P AVR (aortic valve replacement) Current Visit: No Status: Acute Code(s): Z95.2 - PRESENCE OF PROSTHETIC HEART VALVE SNOMED Code(s): 9754691872242 (3) Chronic atrial fibrillation Current Visit: No Status: Chronic Code(s): I48.2 - CHRONIC ATRIAL FIBRILLATION SNOMED Code(s): 231662663 Plan: 1. Bradycardia. Cardiology consulted, planning on Echo today 2. Dilated cardiomyopathy and Diastolic CHF. Continue home lasix 40 mg daily 3. HTN, continue lipitor, hold coreg with bradycardia 4. Depression, cont home meds
[2018-12-22 12:16] LABS: Glucose,Whole Blood 93 mg/dL (75-99)
[2018-12-22] MEDS ORDERED: LISINOPRIL 2.5 MG TAB PO STA (13:32)
--- NOTE | 2018-12-22 13:35 | P.CRDCN ---
History of Present Illness History of present illness: This is a pleasant 68-year-old male past medical history significant for bovine aortic valve replacement, hypertension, diabetes mellitus, former nicotine dependence and chronic persistent atrial fibrillation on long-term anticoagulation. He follows in the office with Dr. Galicia. If this is seeming consultation secondary to bradycardia. He states he was in the office seeing ks s primary care physician as heart rate was noted to be in the 30s and he was sent to the hospital for further evaluation. He states over the previous one to 2 months he has noticed increased fatigue, exertional shortness of breath and exertional chest discomfort. He states if he goes out to get his mail takes his garbage out his when he notices his shortness of breath and chest discomfort. Chest discomfort is described as a tight sensation in the left precordial region. There is no radiation to the arm, back, neck or jaw. There is no associated palpitations, nausea, vomiting or diaphoresis. He has been following with his primary care physician and states he underwent stress test and ec hocardiogram at their office that he was told was unremarkable. EKG on arrival reveals atrial fibrillation with slow ventricular response heart rate is 48. There is nonspecific ST abnormalities in the lateral leads. Chest x-ray reveals mild venous congestion. Laboratory data reviewed, WBC 7.5, hemoglobin 13.8, platelets 228, INR 2.9, sodium 141, potassium 4.3, creatinine 0.62, magnesium 1.9, cardiac enzymes negative 2, proBNP 531, TSH 0.984. Current cardiac medications include Coumadin, atorvastatin 40 mg daily, lisinopril 2.5 mg daily, Lasix 40 mg daily and carvedilol 3.125 mg twice a day. Prior to valve surgery he underwent cardiac catheterization revealing normal coronary arteries with no evidence of obstructive disease. Most recent echocardiogram obtained in the office December 2017 reveals impaired LV systolic function with ejection fraction 40% hypokinesia of the inferior and septal hemphill, moderately dilated left atrium, mean gradient across the aortic valve 15 mmHg. At the time of my exam: CONSTITUTIONAL: Denies fever. Denies chills. EYES: Denies blurred vision. Denies vision changes. Denies eye pain. EARS, NOSE, MOUTH & THROAT: Denies headache. Denies sore throat. Denies ear pain. CARDIOVASCULAR: Denies chest pain. Denies shortness of breath. Denies orthopnea. Denies PND. Denies palpitations. RESPIRATORY: Denies cough. GASTROINTESTINAL: Denies abdominal pain. Denies diarrhea. Denies constipation. Denies nausea. Denies vomiting. MUSCULOSKELETAL: Denies myalgias. INTEGUMENTARY: Denies pruitis. Denies rash. NEUROLOGIC: Denies numbness. Denies tingling. Denies weakness. PSYCHIATRIC: Denies anxiety. Denies depression. ENDOCRINE: Denies fatigue. Denies weight change. Denies polydipsia. Denies polyurina. GENITOURINARY: Denies burning, hematuria or urgency with micturation. HEMATOLOGIC: Denies history of anemia. Denies bleeding. Blood pressure 158/74 heart rate a 48 afebrile maintaining oxygen saturation on room air GENERAL: This is a 68-year-old occasion male in no apparent distress at the time of my examination. Morbidly obese. HEENT: Head is atraumatic, normocephalic. Pupils are equal, round. Sclerae anicteric. Conjunctivae are clear. Mucous membranes of the mouth are moist. Neck is supple. There is no jugular venous distention. No carotid bruit is heard. LUNGS: Clear to auscultation no wheezes, rales or rhonchi. No chest wall tenderness is noted on palpation or with deep breathing. HEART: Irregular rate and rhythm with systolic ejection murmur at the base, no rubs or gallops. S1 and S2 heard. ABDOMEN: Soft, nontender. Bowel sounds are heard. No organomegaly noted. EXTREMITIES: No evidence of peripheral edema and no calf tenderness noted. VASCULAR: Radial and dorsalis pedis pulses palpated, no evidence of clubbing. NEUROLOGIC: Patient is awake, alert and oriented x3. ASSESSMENT Chronic persistent atrial fibrillation on long-term anticoagulation with variable ventricular rates. Bradycardia Exertional chest pain and shortness of breath. An acute coronary event has been ruled out. Possibly related to underlying angina. Recent stress test obtained at his primary care physician's office. Dilated cardiomyopathy Chronic systolic heart failure Hypertension Dyslipidemia Diabetes mellitus PLAN Hold beta-blocking medications. Ongoing telemetry monitoring. Repeat echocardiogram and obtain report from recent stress test at his primary care physician's office. Increase lisinopril to 5 mg daily. Continue atorvastatin on Lasix as previously ordered. Continue to watch on telemetry. Consider pacemaker insertion due to the need for beta blockers with cardiomyopathy. Further recommendations to follow. Thank you kindly for this consultation. Nurse Practitioner note has been reviewed, I agree with a documented findings and plan of care. Patient was seen and examined. Past Medical History Past Medical History: Diabetes Mellitus, Hypertension Additional Past Medical History / Comment(s): irregular heartbeat, varicose veins, 2 herniated disk/degenerative disks, leaky heart valve, "blood clots in the heart" History of Any Multi-Drug Resistant Organisms: None Reported Past Surgical History: Appendectomy, Bowel Resection, Cardiac Valve Replacement, Heart Catheterization, Orthopedic Surgery, Tonsillectomy Additional Past Surgical History / Comment(s): left shoulder surgery, surgery for sleep apnea, deana cataracts, Aortic Valve replacement (bovine) 06/2016 Past Anesthesia/Blood Transfusion Reactions: No Reported Reaction Past Psychological History: Depression Smoking Status: Former smoker Past Alcohol Use History: Occasional Additional Past Alcohol Use History / Comment(s): quit smoking 2014. smoked for 30 yrs, < 1 PPD Past Drug Use History: None Reported - Past Family History Mother Family Medical History: No Reported History Medications and Allergies Home Medications Medication Instructions Recorded Confirmed Type Lisinopril [Zestril] 2.5 mg PO QAM 10/15/14 12/21/18 History Warfarin [Coumadin] 10 mg PO SUMOWEFR 10/15/14 12/21/18 History metFORMIN HCL [Glucophage] 500 mg PO QAM 10/15/14 12/21/18 History FLUoxetine HCL [Sarafem] 60 mg PO DAILY 08/01/16 12/21/18 History Carvedilol [Coreg] 3.125 mg PO BID-W/MEALS #60 tab 08/06/16 12/21/18 Rx Furosemide [Lasix] 40 mg PO DAILY #30 tablet 08/06/16 12/21/18 Rx Pantoprazole [Protonix] 40 mg PO AC-BRKFST #30 tablet. 08/06/16 12/21/18 Rx Atorvastatin [Lipitor] 40 mg PO HS 11/23/16 12/21/18 History OLANZapine [ZyPREXA] 5 mg PO DAILY 08/30/18 12/21/18 History Warfarin [Coumadin] 7.5 mg PO TUTH 08/30/18 12/21/18 History Albuterol Inhaler [Ventolin Hfa 1 - 2 puff INHALATION RT-Q6H PRN 12/21/18 12/21/18 History Inhaler] Cyanocobalamin (Vitamin B-12) 1,000 mcg PO DAILY 12/21/18 12/21/18 History [Vitamin B-12] Multivitamins, Thera [Multivitamin 1 tab PO DAILY 12/21/18 12/21/18 History (formulary)] Turmeric Root Extract [Turmeric] 1,000 mg PO DAILY 12/21/18 12/21/18 History Umeclidinium Brm/Vilanterol Tr 1 puff INHALATION RT-DAILY 12/21/18 12/21/18 History [Anoro Ellipta 62.5-25 Mcg INH] Vitamin A Acetate [Vitamin A] 10,000 unit SL DAILY 12/21/18 12/21/18 History buPROPion XL [Wellbutrin Xl] 150 mg PO DAILY 12/21/18 12/21/18 History Allergies Allergy/AdvReac Type Severity Reaction Status Date / Time No Known Allergies Allergy Verified 12/21/18 14:19 Physical Exam Vitals: Vital Signs Temp Pulse Pulse Resp BP BP Pulse Ox 12/22/18 08:10 48 L 12/22/18 08:04 50 L 12/22/18 08:00 45 L 12/22/18 07:56 96.4 F L 45 L 18 147/67 97 12/22/18 04:00 43 L 20 12/22/18 00:00 43 L 20 120/65 97 12/21/18 22:16 98 12/21/18 20:00 98.0 F 57 L 20 145/71 97 12/21/18 19:22 48 L 18 172/85 94 L 12/21/18 13:37 97.9 F 42 L 18 167/88 96 Intake and Output 12/21/18 12/22/18 12/22/18 22:59 06:59 14:59 Intake Total 222 160 Balance 222 160 Intake: Intake, IV Titration 160 Amount Sodium Chloride 0.9% 1, 160 000 ml @ 20 mls/hr IV . Q24H ADELINA Rx#:[id number] Oral 222 Other: # Voids 2 Weight 158.4 kg Results 12/21/18 14:18 12/21/18 14:18 Cardiac Enzymes 12/21/18 12/21/18 Range/Units 14:18 14:18 AST 34 (17-59) U/L Troponin I <0.012 (0.000-0.034) ng/mL Coagulation 12/21/18 Range/Units 14:18 PT 28.0 H (9.0-12.0) sec APTT 40.1 H (22.0-30.0) sec CBC 12/21/18 Range/Units 14:18 WBC 7.5 (3.8-10.6) k/uL RBC 4.79 (4.30-5.90) m/uL Hgb 13.8 (13.0-17.5) gm/dL Hct 42.7 (39.0-53.0) % Plt Count 228 (150-450) k/uL Comprehensive Metabolic Panel 12/21/18 Range/Units 14:18 Sodium 141 (137-145) mmol/L Potassium 4.3 (3.5-5.1) mmol/L Chloride 108 H (98-107) mmol/L Carbon Dioxide 27 (22-30) mmol/L BUN 19 (9-20) mg/dL Creatinine 0.62 L (0.66-1.25) mg/dL Glucose 112 H (74-99) mg/dL Calcium 8.9 (8.4-10.2) mg/dL AST 34 (17-59) U/L ALT 27 (21-72) U/L Alkaline Phosphatase 90 (38-126) U/L Total Protein 7.0 (6.3-8.2) g/dL Albumin 3.9 (3.5-5.0) g/dL Current Medications Generic Name Dose Route Start Last Admin Trade Name Freq PRN Reason Stop Dose Admin Albuterol/Ipratropium 3 ml 12/21/18 20:52 12/22/18 08:01 Duoneb 0.5 Mg-3 Mg/3 Ml Soln INHALATION 3 ml RT-QID PRN Administration Shortness Of Breath Or Wheezing Atorvastatin Calcium 40 mg 12/21/18 21:00 12/21/18 23:02 Lipitor PO 40 mg HS ADELINA Administration Bupropion HCl 150 mg 12/22/18 09:00 12/22/18 08:20 Wellbutrin Xl PO 150 mg DAILY ADELINA Administration Enoxaparin Sodium 40 mg 12/22/18 09:00 12/22/18 08:20 Lovenox SQ 40 mg DAILY ADELINA Administration Fluoxetine HCl 60 mg 12/22/18 09:00 12/22/18 08:20 Prozac PO 60 mg DAILY ADELINA Administration Furosemide 40 mg 12/22/18 09:00 12/22/18 08:20 Lasix PO 40 mg DAILY ADELINA Administration Sodium Chloride 1,000 mls @ 20 mls/hr 12/21/18 15:30 12/21/18 16:40 Saline 0.9% IV 20 mls/hr .Q24H ADELINA Administration Insulin Aspart 0 unit 12/21/18 21:00 12/22/18 08:07 Novolog SQ Not Given ACHS ADELINA Protocol Lisinopril 2.5 mg 12/22/18 09:00 12/22/18 08:20 Zestril PO 2.5 mg QAM ADELINA Administration Naloxone HCl 0.2 mg 12/21/18 15:29 Narcan IV Q2M PRN Opioid Reversal Olanzapine 5 mg 12/22/18 09:00 12/22/18 08:20 Zyprexa PO 5 mg DAILY ADELINA Administration Pantoprazole Sodium 40 mg 12/22/18 07:30 12/22/18 06:55 Protonix PO 40 mg AC-BRKFST ADELINA Administration Intake and Output 12/21/18 12/22/18 12/22/18 22:59 06:59 14:59 Intake Total 222 160 Balance 222 160 Intake: Intake, IV Titration 160 Amount Sodium Chloride 0.9% 1, 160 000 ml @ 20 mls/hr IV . Q24H ADELINA Rx#:[id number] Oral 222 Other: # Voids 2 Weight 158.4 kg 12/21/18 14:18 12/21/18 14:18
[2018-12-22 17:12] LABS: Glucose,Whole Blood 84 mg/dL (75-99)
--- NOTE | 2018-12-22 18:15 | ECHOF ---
Referral Reason:sob, fatigue, bradycardia MEASUREMENTS -------- HEIGHT: 172.7 cm WEIGHT: 158.3 kg BP: IVSd: 1.5 cm (0.6 - 1.1) LVIDd: 3.9 cm (3.9 - 5.3) LVPWd: 1.3 cm (0.6 - 1.1) IVSs: 2.1 cm LVIDs: 2.2 cm LVPWs: 1.9 cm Ao Diam: 3.6 cm (2.0 - 3.7) AV Cusp: 2.2 cm (1.5 - 2.6) LA Diam: 4.5 cm (2.7 - 3.8) MV EXCURSION: 19.957 mm (> 18.000) MV EF SLOPE: 109 mm/s (70 - 150) EPSS: 1.4 cm MV E Merrick: 0.76 m/s MV DecT: 169 ms MV A Merrick: 0.33 m/s MV E/A Ratio: 2.31 AV maxP.86 mmHg AV meanP.22 mmHg RAP: 5.00 mmHg RVSP: 14.52 mmHg FINDINGS -------- Undetermined rhythm. This was a technically difficult study with suboptimal views. The left ventricular size is normal. There is moderate concentric left ventricular hypertrophy. O verall left ventricular systolic function is low-normal with, an EF between 50 - 55 %. There is par adoxical/dysynergic septal motion consistent with post-operative status. The right ventricle is normal in size. The left atrial size is normal. The right atrial size is normal. Lumason used Peak/mean gradient across the Aortic Valve is 15.86mmHg / 9.22mmHg. Normally functioning bioprosthe tic valve. The mitral valve was not well visualized. There is trace mitral regurgitation. Trace tricuspid regurgitation present. Right ventricular systolic pressure is normal at < 35 mmHg. The pulmonic valve was not well visualized. The aortic root size is normal. IVC Not well visulized. There is no pericardial effusion. CONCLUSIONS -------- 1. Undetermined rhythm. 2. This was a technically difficult study with suboptimal views. 3. The left ventricular size is normal. 4. There is moderate concentric left ventricular hypertrophy. 5. Overall left ventricular systolic function is low-normal with, an EF between 50 - 55 %. 6. There is paradoxical/dysynergic septal motion consistent with post-operative status. 7. The right ventricle is normal in size. 8. The left atrial size is normal. 9. The right atrial size is normal. 10. Lumason used 11. Peak/mean gradient across the Aortic Valve is 15.86mmHg / 9.22mmHg. 12. Normally functioning bioprosthetic valve. 13. The mitral valve was not well visualized. 14. There is trace mitral regurgitation. 15. Trace tricuspid regurgitation present. 16. Right ventricular systolic pressure is normal at < 35 mmHg. 17. The pulmonic valve was not well visualized. 18. The aortic root size is normal. 19. IVC Not well visulized. 20. There is no pericardial effusion. SAFETY DEPOSIT SUPERVISOR: Mildred Slade RDCS
[2018-12-22 20:38] LABS: Glucose,Whole Blood 105 mg/dL (75-99)
[2018-12-22] MEDS: ATORVASTATIN 40 MG TAB PO SCH (21:45)
[2018-12-22] MEDS: SODIUM CHLORIDE 0.9% 1,000 ML IV SCH (21:46)
[2018-12-23 06:10] LABS: Glucose,Whole Blood 112 mg/dL (75-99)
[2018-12-23] MEDS: PANTOPRAZOLE 40 MG TABLET PO SCH (07:04)
[2018-12-23] MEDS: INSULIN ASPART (NovoLOG) 100 UNIT/ML VIAL SQ SCH ×3 (07:43→16:40)
[2018-12-23] MEDS: buPROPion XL 150 MG TAB.ER.24H PO SCH (08:31)
[2018-12-23] MEDS: FLUoxetine HCL 20 MG CAP PO SCH (08:31)
[2018-12-23] MEDS: FUROSEMIDE 40 MG TAB PO SCH (08:31)
[2018-12-23] MEDS: OLANZapine 5 MG TAB PO SCH (08:31)
[2018-12-23] MEDS: ENOXAPARIN 40 MG/0.4 ML SYRINGE SQ SCH (08:31)
[2018-12-23] MEDS: SODIUM CHLORIDE 0.9% 1,000 ML IV SCH ×2 (08:34→12:55)
[2018-12-23] MEDS ORDERED: LISINOPRIL 5 MG TAB PO SCH (09:00)
[2018-12-23] MEDS ORDERED: LISINOPRIL 10 MG TAB PO STA (09:25)
[2018-12-23 10:16] LABS: INR 1.7 (<1.2); Prothrombin Time 16.7 sec (9.0-12.0)
[2018-12-23 10:23] LABS: Basophils % (A) 0 %; Eosinophils # (A) 0.2 k/uL (0-0.7); Eosinophils % (A) 3 %; HCT 46.7 % (39.0-53.0); HGB 14.8 gm/dL (13.0-17.5); Lymphocytes # (A) 1.3 k/uL (1.0-4.8); Lymphocytes % (A) 18 %; MCH 28.9 pg (25.0-35.0); MCHC 31.7 g/dL (31.0-37.0); MCV 91.3 fL (80.0-100.0); Mean Platelet Volume 6.4; Monocytes # (A) 0.6 k/uL (0-1.0); Monocytes % (A) 8 %; Neutrophils % (A) 68 %; Platelet Count 244 k/uL (150-450); RBC 5.12 m/uL (4.30-5.90); RDW 14.3 % (11.5-15.5); WBC 7.3 k/uL (3.8-10.6)
[2018-12-23 10:38] LABS: African American GFR (CKD) >90 (>60 ml/min/1.73 sqM); Anion Gap 6 mmol/L; Blood Urea Nitrogen 18 mg/dL (9-20); Calcium 9.3 mg/dL (8.4-10.2); Carbon Dioxide 34 mmol/L (22-30); Chloride 104 mmol/L (98-107); Glucose 119 mg/dL (74-99); Potassium 4.8 mmol/L (3.5-5.1); Sodium 144 mmol/L (137-145)
[2018-12-23] MEDS: hydrALAZINE HCL 25 MG TAB PO SCH ×2 (11:33→21:01)
[2018-12-23 11:53] LABS: Glucose,Whole Blood 85 mg/dL (75-99)
[2018-12-23] MEDS ORDERED: ceFAZolin 1,000 MG in SODIUM CHLORIDE 0.9% IRRIGATIO 250 ML IRRIGATION ONE (12:28)
--- NOTE | 2018-12-23 12:29 | P.PN ---
Subjective This is a pleasant 68-year-old male past medical history significant for bovine aortic valve replacement, hypertension, diabetes mellitus, former nicotine dependence and chronic persistent atrial fibrillation on long-term anticoagulation. He follows in the office with Dr. Galicia. If this is seeming consultation secondary to bradycardia. He states he was in the office seeing his primary care physician as heart rate was noted to be in the 30s and he was sent to the hospital for further evaluation. He states over the previous one to 2 months he has noticed increased fatigue, exertional shortness of breath and exertional chest discomfort. He states if he goes out to get his mail takes his garbage out his when he notices his shortness of breath and chest discomfort. Chest discomfort is described as a tight sensation in the left precordial region. There is no radiation to the arm, back, neck or jaw. There is no associated palpitations, nausea, vomiting or diaphoresis. He has been following with his primary care physician and states he underwent stress test and echocardiogram at their office that he was told was unremarkable. EKG on arrival reveals atrial fibrillation with slow ventricular response heart rate is 48. There is nonspecific ST abnormalities in the lateral leads. Chest x-ray reveals mild venous congestion. Laboratory data reviewed, WBC 7.5, hemoglobin 13.8, platelets 228, INR 2.9, sodium 141, potassium 4.3, creatinine 0.62, magnesium 1.9, cardiac enzymes negative 2, proBNP 531, TSH 0.984. Current cardiac medications include Coumadin, atorvastatin 40 mg daily, lisinopril 2.5 mg daily, Lasix 40 mg daily and carvedilol 3.125 mg twice a day. Prior to valve surgery he underwent cardiac catheterization revealing normal coronary arteries with no evidence of obstructive disease. Most recent echocardiogram obtained in the office December 2017 reveals impaired LV systolic function with ejection fraction 40% hypokinesia of the inferior and septal hemphill, moderately dilated left atrium, mean gradient across the aortic valve 15 mmHg. 12/23/2018 Patient is seen and examined sitting up in the chair in no acute distress. He states overall he feels the same with no real change in his shortness of breath or fatigue. He has had no further symptoms of chest discomfort however he states he has not been up and moving around. Telemetry tracings continue to reveal persistent bradycardia heart rate in the 40s. Blood pressure 137/104 heart rate 48 afebrile maintaining oxygen saturation on room air. Echo cardiogram revealed preserved LV systolic function with ejection fraction 50- 55%, mean gradient across the aortic valve is 9 mmHg. GENERAL: This is a 68-year-old occasion male in no apparent distress at the time of my examination. Morbidly obese. HEENT: Head is atraumatic, normocephalic. Pupils are equal, round. Sclerae anicteric. Conjunctivae are clear. Mucous membranes of the mouth are moist. Neck is supple. There is no jugular venous distention. No carotid bruit is heard. LUNGS: Clear to auscultation no wheezes, rales or rhonchi. No chest wall tenderness is noted on palpation or with deep breathing. HEART: Irregular rate and rhythm with systolic ejection murmur at the base, no rubs or gallops. S1 and S2 heard. EXTREMITIES: No evidence of peripheral edema and no calf tenderness noted. ASSESSMENT Chronic persistent atrial fibrillation on long-term anticoagulation with variable ventricular rates. Bradycardia Exertional chest pain and shortness of breath. An acute coronary event has been ruled out. Possibly related to underlying angina. Recent stress test obtained at his primary care physician's office. Dilated cardiomyopathy Chronic systolic heart failure Hypertension Dyslipidemia Diabetes mellitus PLAN Increase lisinopril to 20 mg daily, give additional dose of 10 now. Add hydralazine 25 mg twice a day. Recommend proceeding with pacemaker insertion. I have discussed the risks, benefits and alternative therapies for the above-mentioned procedure and for both sedation/analgesia as well as necessary blood product administration, if indicated, as they pertain to this patient. The patient has indicated understanding and acceptance of the risks and procedures discussed. Questions have been answered appropriately and he is agreeable to move forward with the above stated procedure. Nothing by mouth after midnight tonight. Ongoing telemetry monitoring. Further recommendations to follow based upon clinical course. Nurse Practitioner note has been reviewed, I agree with a documented findings and plan of care. Patient was seen and examined. Objective - Vital Signs Vital signs: Vital Signs Temp 97.1 F L 12/23/18 07:44 Pulse 48 L 12/23/18 11:34 Resp 16 12/23/18 11:34 BP 137/104 12/23/18 11:34 Pulse Ox 94 L 12/23/18 11:34 Intake & Output 07/20/19 07/21/19 07/21/19 18:59 06:59 18:59 Intake Total 1280 240 Balance 1280 240 Weight 157 kg Intake: Intake, IV Titration 320 Amount Sodium Chloride 0.9% 1, 320 000 ml @ 20 mls/hr IV . Q24H ADELINA Rx#:[id number] Oral 960 240 Other: # Voids 2 1 1 - Labs CBC & Chem 7: 12/23/18 09:42 12/23/18 09:42 Labs: Abnormal Lab Results - Last 24 Hours (Table) 12/22/18 12/23/18 12/23/18 Range/Units 20:37 06:09 09:42 PT 16.7 H (9.0-12.0) sec INR 1.7 H (<1.2) Carbon Dioxide (22-30) mmol/L Glucose (74-99) mg/dL POC Glucose (mg/dL) 105 H 112 H (75-99) mg/dL 12/23/18 Range/Units 09:42 PT (9.0-12.0) sec INR (<1.2) Carbon Dioxide 34 H (22-30) mmol/L Glucose 119 H (74-99) mg/dL POC Glucose (mg/dL) (75-99) mg/dL
[2018-12-23] MEDS ORDERED: SODIUM CHLORIDE 0.9% 1,000 ML IV SCH (12:30)
[2018-12-23 16:50] LABS: Glucose,Whole Blood 91 mg/dL (75-99)
--- NOTE | 2018-12-23 17:07 | P.PN ---
Subjective Progress Note Date: 12/23/18 Neo Gaston is a 68-year-old male with a past medical history significant for COPD, atrial fibrillation, coronary artery disease, s/p aortic valve replacement, type 2 diabetes, depression who presented to the emergency department after office visit noted symptomatic bradycardia with heart rate in the low 40s. Patient states for almost a year he has felt fatigued and short of breath with any amount of exertion, and therefore has been very sedentary. He has taken his pulse at home and often notes bradycardia. He endorses intermittent chest pain, and chest pressure radiating into his left arm which last occurred more than a month ago. In the past it has woken him up out of sleep. He denies orthopnea, but does endorse leg swelling which is controlled well with Lasix. In the emergency department, EKG revealed complete heart block and ventricular rate of 48 bpm, normal electrolytes, negative troponin, and BNP 500. 12/22. Pt is upright in chair today, denies chest pain or shortness of breath with rest but continues to complain of AUGUSTIN and fatigue. Cardiology has echo ordered for today. 12/23. He is examined in chair today, denies chest pain or dyspnea but has been sedentary today. Cardiology recommending pacemaker. Objective - Vital Signs Vital signs: Vital Signs Temp 97.1 F L 12/23/18 07:44 Pulse 48 L 12/23/18 16:00 Resp 18 12/23/18 16:00 BP 142/77 12/23/18 16:00 Pulse Ox 100 12/23/18 16:00 Intake & Output 12/22/18 12/23/18 12/23/18 18:59 06:59 18:59 Intake Total 1280 480 Balance 1280 480 Weight 157 kg Intake: Intake, IV Titration 320 Amount Sodium Chloride 0.9% 1, 320 000 ml @ 20 mls/hr IV . Q24H ADELINA Rx#:[id number] Oral 960 480 Other: # Voids 2 1 1 - Exam Constitutional: Obese, upright in chair, NAD CV: bradycardia, S1/S2 Lungs: clear throughout Ext: venous stasis dermatitis, no edema - Labs CBC & Chem 7: 12/23/18 09:42 12/23/18 09:42 Labs: Abnormal Lab Results - Last 24 Hours (Table) 12/22/18 12/23/18 12/23/18 Range/Units 20:37 06:09 09:42 PT 16.7 H (9.0-12.0) sec INR 1.7 H (<1.2) Carbon Dioxide (22-30) mmol/L Glucose (74-99) mg/dL POC Glucose (mg/dL) 105 H 112 H (75-99) mg/dL 12/23/18 Range/Units 09:42 PT (9.0-12.0) sec INR (<1.2) Carbon Dioxide 34 H (22-30) mmol/L Glucose 119 H (74-99) mg/dL POC Glucose (mg/dL) (75-99) mg/dL Assessment and Plan (1) Bradycardia Current Visit: Yes Status: Acute Code(s): R00.1 - BRADYCARDIA, UNSPECIFIED SNOMED Code(s): 45069330 (2) S/P AVR (aortic valve replacement) Current Visit: No Status: Acute Code(s): Z95.2 - PRESENCE OF PROSTHETIC HEART VALVE SNOMED Code(s): 7011566367974 (3) Chronic atrial fibrillation Current Visit: No Status: Chronic Code(s): I48.2 - CHRONIC ATRIAL FIBRILLATION SNOMED Code(s): 811784642 Plan: 1. Chronic atrial fibrillation with variable ventricular rate. Cardiology recommending pacemaker for persistent bradycardia 2. Dilated cardiomyopathy and Diastolic CHF. Continue home lasix 40 mg daily 3. HTN. Hold coreg with bradycardia. Lisinopril increased by cardiology 4. Depression, cont home meds
[2018-12-23 20:58] LABS: Glucose,Whole Blood 50 mg/dL (75-99)
[2018-12-23 20:58] LABS: Glucose,Whole Blood 104 mg/dL (75-99)
[2018-12-23] MEDS: ATORVASTATIN 40 MG TAB PO SCH (21:01)
[2018-12-24] MEDS: INSULIN ASPART (NovoLOG) 100 UNIT/ML VIAL SQ SCH ×5 (01:10→20:10)
[2018-12-24 06:07] LABS: Basophils % (A) 1 %; Eosinophils # (A) 0.3 k/uL (0-0.7); Eosinophils % (A) 3 %; HCT 45.7 % (39.0-53.0); Lymphocytes # (A) 1.4 k/uL (1.0-4.8); Lymphocytes % (A) 17 %; MCH 28.1 pg (25.0-35.0); MCHC 30.7 g/dL (31.0-37.0); MCV 91.5 fL (80.0-100.0); Mean Platelet Volume 6.6; Monocytes # (A) 0.7 k/uL (0-1.0); Monocytes % (A) 9 %; Neutrophils # (A) 5.6 k/uL (1.3-7.7); Neutrophils % (A) 69 %; Platelet Count 245 k/uL (150-450); RDW 14.5 % (11.5-15.5); WBC 8.2 k/uL (3.8-10.6)
[2018-12-24] MEDS: PANTOPRAZOLE 40 MG TABLET PO SCH (06:09)
[2018-12-24] MEDS: FLUoxetine HCL 20 MG CAP PO SCH (06:09)
[2018-12-24] MEDS: LISINOPRIL 20 MG TAB PO SCH (06:09)
[2018-12-24] MEDS: hydrALAZINE HCL 25 MG TAB PO SCH ×2 (06:09→20:02)
[2018-12-24 06:10] LABS: INR 1.4 (<1.2); Prothrombin Time 13.8 sec (9.0-12.0)
[2018-12-24] MEDS: OLANZapine 5 MG TAB PO SCH (06:10)
[2018-12-24] MEDS: buPROPion XL 150 MG TAB.ER.24H PO SCH (06:10)
[2018-12-24 06:17] LABS: African American GFR (CKD) >90 (>60 ml/min/1.73 sqM); Anion Gap 8 mmol/L; Blood Urea Nitrogen 21 mg/dL (9-20); Calcium 9.1 mg/dL (8.4-10.2); Carbon Dioxide 32 mmol/L (22-30); Chloride 104 mmol/L (98-107); Glucose 119 mg/dL (74-99); Sodium 144 mmol/L (137-145)
[2018-12-24 06:40] LABS: Glucose,Whole Blood 113 mg/dL (75-99)
[2018-12-24] MEDS: FUROSEMIDE 40 MG TAB PO SCH (08:16)
[2018-12-24] MEDS: ENOXAPARIN 40 MG/0.4 ML SYRINGE SQ SCH (08:16)
[2018-12-24] MEDS: SODIUM CHLORIDE 0.9% 1,000 ML IV SCH (08:17)
[2018-12-24] MEDS ORDERED: IV FLUID CONTINUATION 200 ML IV ONE (10:15)
--- NOTE | 2018-12-24 10:19 | P.PN ---
Subjective Progress Note Date: 12/24/18 Neo Gaston is a 68-year-old male with a past medical history significant for COPD, atrial fibrillation, coronary artery disease, s/p aortic valve replacement, type 2 diabetes, depression who presented to the emergency department after office visit noted symptomatic bradycardia with heart rate in the low 40s. Patient states for almost a year he has felt fatigued and short of breath with any amount of exertion, and therefore has been very sedentary. He has taken his pulse at home and often notes bradycardia. He endorses intermittent chest pain, and chest pressure radiating into his left arm which last occurred more than a month ago. In the past it has woken him up out of sleep. He denies orthopnea, but does endorse leg swelling which is controlled well with Lasix. In the emergency department, EKG revealed complete heart block and ventricular rate of 48 bpm, normal electrolytes, negative troponin, and BNP 500. 12/22. Pt is upright in chair today, denies chest pain or shortness of breath with rest but continues to complain of AUGUSTIN and fatigue. Cardiology has echo ordered for today. 12/23. He is examined in chair today, denies chest pain or dyspnea but has been sedentary today. Cardiology recommending pacemaker. 12/24. He is feeling well today but continues to experience AUGUSTIN. His HR has remained in the high 40s with rest increasing to 60s with exertion. Objective - Vital Signs Vital signs: Vital Signs Temp 97.2 F L 12/24/18 07:23 Pulse 49 L 12/24/18 07:23 Resp 16 12/24/18 07:23 BP 103/57 12/24/18 07:23 Pulse Ox 97 12/24/18 07:23 Intake & Output 12/23/18 12/24/18 12/24/18 18:59 06:59 18:59 Intake Total 720 50 Output Total 300 Balance 720 -250 Weight 156.6 kg Intake: Intake, IV Titration 50 Amount Sodium Chloride 0.9% 1, 50 000 ml @ 50 mls/hr IV . Q20H ADELINA Rx#:[id number] Oral 720 Output: Urine 300 Other: # Voids 1 1 - Exam Constitutional: Obese, upright in chair, NAD CV: bradycardia, S1/S2 Lungs: clear throughout Ext: venous stasis dermatitis, no edema - Labs CBC & Chem 7: 12/24/18 05:44 12/24/18 05:44 Labs: Abnormal Lab Results - Last 24 Hours (Table) 12/23/18 12/23/18 12/23/18 Range/Units 09:42 20:54 20:57 MCHC (31.0-37.0) g/dL PT (9.0-12.0) sec INR (<1.2) Carbon Dioxide 34 H (22-30) mmol/L BUN (9-20) mg/dL Glucose 119 H (74-99) mg/dL POC Glucose (mg/dL) 50 L 104 H (75-99) mg/dL 12/24/18 12/24/18 12/24/18 Range/Units 05:44 05:44 05:44 MCHC 30.7 L (31.0-37.0) g/dL PT 13.8 H (9.0-12.0) sec INR 1.4 H (<1.2) Carbon Dioxide 32 H (22-30) mmol/L BUN 21 H (9-20) mg/dL Glucose 119 H (74-99) mg/dL POC Glucose (mg/dL) (75-99) mg/dL 12/24/18 Range/Units 06:39 MCHC (31.0-37.0) g/dL PT (9.0-12.0) sec INR (<1.2) Carbon Dioxide (22-30) mmol/L BUN (9-20) mg/dL Glucose (74-99) mg/dL POC Glucose (mg/dL) 113 H (75-99) mg/dL Assessment and Plan (1) Bradycardia Current Visit: Yes Status: Acute Code(s): R00.1 - BRADYCARDIA, UNSPECIFIED SNOMED Code(s): 96321102 (2) S/P AVR (aortic valve replacement) Current Visit: No Status: Acute Code(s): Z95.2 - PRESENCE OF PROSTHETIC HEART VALVE SNOMED Code(s): 9489311242960 (3) Chronic atrial fibrillation Current Visit: No Status: Chronic Code(s): I48.2 - CHRONIC ATRIAL FIBRILLATION SNOMED Code(s): 077722373 Plan: 1. Chronic atrial fibrillation with variable ventricular rate. Pacemaker implantation per Cardiology 2. Dilated cardiomyopathy and Diastolic CHF. Continue home lasix 40 mg daily 3. HTN. Hold coreg with bradycardia. Continue lisinopril 4. Depression, cont home meds
[2018-12-24] MEDS ORDERED: ceFAZolin 1,000 MG in SODIUM CHLORIDE 0.9% IRRIGATIO 250 ML IRRIGATION ONE (10:45)
[2018-12-24] MEDS ORDERED: IOPAMIDOL-250 50ML BTL IV ONE (10:48)
[2018-12-24] MEDS ORDERED: MIDAZOLAM (PF) 2 MG/2 ML VIAL IV ONE (11:10)
[2018-12-24] MEDS ORDERED: LIDOCAINE 1% INJ 10MG/ML (20 ML MDV) SQ ONE (11:13)
[2018-12-24] MEDS ORDERED: fentaNYL (PF) 50 MCG/ML 2 ML AMP IV ONE (11:18)
[2018-12-24] MEDS: LIDOCAINE 1% INJ 10MG/ML (20 ML MDV) SQ ONE ×2 (11:18→11:27)
[2018-12-24] MEDS ORDERED: HYDROcodone/APAP 5-325MG 1 EACH TAB PO PRN (11:54)
[2018-12-24] MEDS ORDERED: ACETAMINOPHEN TAB 325 MG TAB PO PRN (11:54)
--- NOTE | 2018-12-24 12:06 | P.PCN ---
Date of Procedure: 12/24/18 Preoperative Diagnosis: Severe bradycardia, status post aortic replacement and also atrial fibrillation. Patient has been having complaints of fatigue and tiredness Postoperative Diagnosis: The same Description of Procedure: HISTORY: This is a 68-year-old gentleman with history of aortic valve replacement and chronic atrial fibrillation who has been complaining of fatigue and tiredness. He was noted to have some bradycardia with rates in the 40s. Be cause of persistent bradycardia, atrial fibrillation and symptoms of fatigue and tiredness, patient is advised to have permanent pacemaker implantation. Patient also needs beta may therapy. CONSENT:I have discussed the risks, benefits and alternative therapies for the above-mentioned procedure and for both sedation/analgesia as well as necessary blood product administration, if indicated, as they pertain to this patient. The patient has indicated understanding and acceptance of the risks and procedures discussed. PROCEDURE: Patient was brought to the lab in a fasting state. Patient was prepped and draped in the usual fashion. Patient was given IV sedation with fentanyl and Versed. The skin below the left clavicle was infiltrated with lidocaine. An incision was made parallel to deltopectoral groove was deepened until the pectoral fascia was exposed. A pocket was created by blunt dissection and cautery. Axillary venography was performed to delineate the course of the axillary vein. A single venous stick is performed into extrathoracic portion of the axillary vein and a single sheath was advanced over the guidewires and left in subclavian vein. Conscious Sedation: Versed 1mg Fentanyl 50 g Duration 41minutes LEADS: VENTRICULAR: This is manufactured by [employer]. Model number is [id number]. Serial number is [id number]. THE DEVICE: This is manufactured by [employer]. Model number is [id number] and the serial number is [id number]. The ventricular lead is maneuvered l with help of a straight and curved stylets into the left ventricle apical region. Satisfactory position was obtained and threshold measurements were made. The atrial lead was then maneuvered into the right atrial appendage. And thresholds were obtained. THRESHOLDS: VENTRICLE: The minimum pacing threshold was 0.6 at pulse width of 0.5. The impedance is 9 and 69 ohms R-wave: 13 The leads and pulse generator remained in the pocket after it was washed with antibiotics. Pocket was closed in the usual fashion. The fas efrain was closed with 2-0 Prolene ,the subcutaneous tissue was closed with 3-0 Prolene and the skin was closed with 4-0 Prolene. PROGRAMMING: MODE: VVIR RATE: 60 to 130 OUTPUT: Ventricle: 3.5 V FINAL IMPRESSION: #1. Axillary venography #2. Single-chamber permanent pacemaker implantation COMPLICATIONS: None. PLAN: Successful implantation of single-chamber permanent pacemaker implantation. Patient will continue prophylactic antibiotics. Chest x-ray in the morning. If stable, patient could be discharged home in the morning
[2018-12-24 12:51] LABS: Glucose,Whole Blood 97 mg/dL (75-99)
[2018-12-24 16:50] LABS: Glucose,Whole Blood 108 mg/dL (75-99)
[2018-12-24] MEDS: CARVEDILOL 6.25 MG TAB PO SCH (17:46)
[2018-12-24] MEDS: ATORVASTATIN 40 MG TAB PO SCH (20:02)
[2018-12-24 20:11] LABS: Glucose,Whole Blood 144 mg/dL (75-99)
[2018-12-25 06:32] LABS: Glucose,Whole Blood 122 mg/dL (75-99)
[2018-12-25] MEDS: SODIUM CHLORIDE 0.9% 1,000 ML IV SCH (06:33)
[2018-12-25] MEDS: INSULIN ASPART (NovoLOG) 100 UNIT/ML VIAL SQ SCH ×2 (06:34→12:51)
[2018-12-25] MEDS: PANTOPRAZOLE 40 MG TABLET PO SCH (06:36)
[2018-12-25] MEDS: CARVEDILOL 6.25 MG TAB PO SCH (06:36)
[2018-12-25 07:40] VITALS: PULSE 60
[2018-12-25] MEDS: buPROPion XL 150 MG TAB.ER.24H PO SCH (09:30)
[2018-12-25] MEDS: ENOXAPARIN 40 MG/0.4 ML SYRINGE SQ SCH (09:30)
[2018-12-25] MEDS: FLUoxetine HCL 20 MG CAP PO SCH (09:31)
[2018-12-25] MEDS: hydrALAZINE HCL 25 MG TAB PO SCH (09:31)
[2018-12-25] MEDS: OLANZapine 5 MG TAB PO SCH (09:31)
[2018-12-25] MEDS: FUROSEMIDE 40 MG TAB PO SCH (09:31)
[2018-12-25] MEDS: LISINOPRIL 20 MG TAB PO SCH (09:31)
--- NOTE | 2018-12-25 10:32 | XR ---
EXAMINATION TYPE: XR chest 2V DATE OF EXAM: 12/25/2018 COMPARISON: Prior chest x-ray 12/21/2018 HISTORY: Lead placement check TECHNIQUE: Frontal and lateral views of the chest are obtained. FINDINGS: Interval placement of a generator in the left pectoral region, there is a lead coursing in to the right ventricle. Patient is post median sternotomy. Aorta is ectatic and dense. No pneumothora x or pleural effusion. Heart remains enlarged. There are overlying cardiac leads. Central vascularity shows a stable and prominent appearance. Postop changes are noted to the left shoulder. Patient show s aortic valve replacement. There is flattening of hemidiaphragms compatible with underlying COPD. IMPRESSION: No evident, patient status post pacemaker placement. Aortic ectasia appearance may be ac centuated by rotation. Similar findings to prior exam.
--- NOTE | 2018-12-25 11:21 | P.PN ---
Subjective Progress Note Date: 12/25/18 This is a pleasant 68-year-old male past medical history significant for bovine aortic valve replacement, hypertension, diabetes mellitus, former nicotine dependence and chronic persistent atrial fibrillation on long-term anticoagulation. He follows in the office with Dr. Galicia. He states he was in the office seeing his primary care physician as heart rate was noted to be in the 30s and he was sent to the hospital for further evaluation. He states over the previous one to 2 months he has noticed increased fatigue, exertional shortness of breath and exertional chest discomfort. He states if he goes out to get his mail takes his garbage out his when he notices his shortness of breath and chest discomfort. Chest discomfort is described as a tight sensation in the left precordial region. There is no radiation to the arm, back, neck or jaw. There is no associated palpitations, nausea, vomiting or diaphoresis. He has been following with his primary care physician and states he underwent stress test and echocardiogram at their office that he was told was unremarkable. His initial EKG on presentation here showed atrial fibrillation with a slow ventricular response inconsistently was in the 40s, for this reason the patient was advised to undergo implantation of a permanent pacemaker, this was performed yesterday by Dr. marissa Young. This morning the patient was seen and examined, sitting up in the chair at bedside, feeling well, monitor showed 100% paced rhythm. The device was interrogated and is functioning appropriately, chest x-ray revealed good placement and no evidence of pneumothorax. Blood pressure 120/70 with a heart rate in the 60s, 97% on room air. Objective - Vital Signs Vital signs: Vital Signs Temp 98 F 12/25/18 04:00 Pulse 60 12/25/18 07:39 Resp 18 12/25/18 07:39 BP 121/76 12/25/18 07:39 Pulse Ox 97 12/25/18 07:39 Intake & Output 12/24/18 12/25/18 12/25/18 18:59 06:59 18:59 Intake Total 570 240 Output Total 300 Balance 270 240 Weight 157.6 kg Intake: IV 100 Intake, IV Titration 50 Amount Sodium Chloride 0.9% 1, 50 000 ml @ 50 mls/hr IV . Q20H ADELINA Rx#:[id number] Oral 420 240 Output: Urine 300 Other: # Voids 1 1 1 # Bowel Movements 1 - Exam GENERAL: This is a 68-year-old occasion male in no apparent distress at the time of my examination. Morbidly obese. HEENT: Head is atraumatic, normocephalic. Pupils are equal, round. Sclerae anicteric. Conjunctivae are clear. Mucous membranes of the mouth are moist. Neck is supple. There is no jugular venous distention. No carotid bruit is heard. LUNGS: Clear to auscultation no wheezes, rales or rhonchi. No chest wall tenderness is noted on palpation or with deep breathing. HEART: Irregular rate and rhythm with systolic ejection murmur at the base, no rubs or gallops. S1 and S2 heard. ABDOMEN: Soft, nontender. Bowel sounds are heard. No organomegaly noted. EXTREMITIES: No evidence of peripheral edema and no calf tenderness noted. VASCULAR: Radial and dorsalis pedis pulses palpated, no evidence of clubbing. NEUROLOGIC: Patient is awake, alert and oriented x3. - Labs CBC & Chem 7: 12/24/18 05:44 12/24/18 05:44 Labs: Abnormal Lab Results - Last 24 Hours (Table) 12/24/18 12/24/18 12/25/18 Range/Units 16:48 20:06 06:32 POC Glucose (mg/dL) 108 H 144 H 122 H (75-99) mg/dL Assessment and Plan Plan: ASSESSMENT #1 Chronic persistent atrial fibrillation on long-term anticoagulation with slow ventricular rates, status post implantation of permanent pacemaker #2 Exertional chest pain and shortness of breath. An acute coronary event has been ruled out. Possibly related to underlying angina. Recent stress test obtained at his primary care physician's office. #3 Dilated cardiomyopathy #4 Chronic systolic heart failure #5 Hypertension #6 Dyslipidemia #7 Diabetes mellitus Plan Device was interrogated this morning and is functioning appropriately, chest x- ray shows good placement with no evidence of a pneumothorax. From cardiology's perspective the patient may be discharged home today to follow-up with Dr. Galicia and the device clinic in the office post discharge. DNP note has been reviewed, I agree with a documented findings and plan of care. Patient was seen and examined.
[2018-12-25 11:40] LABS: Glucose,Whole Blood 90 mg/dL (75-99)
[2018-12-25 12:39] VITALS: BP 130/85; RESP 19; TEMP 97.4
[2018-12-25 14:51] LABS: INR 1.1 (<1.2); Prothrombin Time 11.9 sec (9.0-12.0)
--- NOTE | 2018-12-25 15:02 | P.DS ---
Providers Date of admission: 12/21/18 15:29 Expected date of discharge: 12/25/18 Attending physician: Cory Goodman MD Consults: 12/21/18 15:35 Consult Physician Urgent Consulting Provider: Grayson Cruz Consult Reason/Comments: Bradycardia Do you want consulting provider notified?: Yes Primary care physician: Kami Yeebagh [facility] Course: Final Diagnoses: (1) Bradycardia, status post permanent pacemaker implantation Current Visit: Yes Status: Acute Code(s): R00.1 - BRADYCARDIA, UNSPECIFIED SNOMED Code(s): 56668844 (2) S/P AVR (aortic valve replacement) Current Visit: No Status: Acute Code(s): Z95.2 - PRESENCE OF PROSTHETIC HEART VALVE SNOMED Code(s): 0469554220154 (3) Chronic persistent atrial fibrillation Current Visit: No Status: Chronic Code(s): I48.2 - CHRONIC ATRIAL FIBRILLATION SNOMED Code(s): 695553940 (4) dilated cardiomyopathy (5) chronic CHF, diastolic dysfunction with dilated cardiomyopathy. EF low normal, 50-55%. (6) hypertension (7)Depression (8) hyperlipidemia (9) diabetes mellitus Hospital course :Neo Gaston is a 68-year-old male with a past medical history significant for COPD, atrial fibrillation, coronary artery disease, s/p aortic valve replacement, type 2 diabetes, depression who presented to the emergency department after office visit noted symptomatic bradycardia with heart rate in the low 40s. Patient states for almost a year he has felt fatigued and short of breath with any amount of exertion, and therefore has been very sedentary. He has taken his pulse at home and often notes bradycardia. He endorses intermittent chest pain, and chest pressure radiating into his left arm which last occurred more than a month ago. In the past it has woken him up out of sleep. He denies orthopnea, but does endorse leg swelling which is controlled well with Lasix. In the emergency department, EKG revealed complete heart block and ventricular rate of 48 bpm, normal electrolytes, negative troponin, and BNP 500. 12/22. Pt is upright in chair today, denies chest pain or shortness of breath with rest but continues to complain of AUGUSTIN and fatigue. Cardiology has echo ordered for today. 12/23. He is examined in chair today, denies chest pain or dyspnea but has been sedentary today. Cardiology recommending pacemaker. 12/24. He is feeling well today but continues to experience AUGUSTIN. His HR has remained in the high 40s with rest increasing to 60s with exertion. Status post permanent pacemaker implantation. Tolerated procedure well. Telemetry reporting 100% paced rhythm. Denies interrogated, reported as functioning appropriately as per cardiology. No pneumothorax reported per chest x-ray. Significant clinical improvement. Cleared by cardiology for discharge. Patient being discharged home in a stable condition with guarded prognosis. - Exam Constitutional: Alert and oriented 3, Obese, upright in chair, NAD CV: S1/S2, irregular, systolic murmur Lungs: clear throughout Ext: venous stasis dermatitis, no edema Neuro: No focal deficits The impression and plan of care has been dictated as directed. : I performed a history and examination of this patient, discussed the same with the dictator. I agree with the dictator's note ,documented as a scribe. Any additional findings or plans will be noted. Time taken: 35 minutes Patient Condition at Discharge: Stable Plan - Discharge Summary Discharge Rx Participant: Yes New Discharge Prescriptions: New hydrALAZINE HCL [Apresoline] 25 mg PO BID #60 tab Carvedilol [Coreg] 6.25 mg PO BID-W/MEALS #60 tab Lisinopril [Zestril] 20 mg PO DAILY #30 tab Continue metFORMIN HCL [Glucophage] 500 mg PO QAM Warfarin [Coumadin] 10 mg PO SUMOWEFR FLUoxetine HCL [Sarafem] 60 mg PO DAILY Furosemide [Lasix] 40 mg PO DAILY #30 tablet Pantoprazole [Protonix] 40 mg PO AC-BRKFST #30 tablet. Atorvastatin [Lipitor] 40 mg PO HS OLANZapine [ZyPREXA] 5 mg PO DAILY Warfarin [Coumadin] 7.5 mg PO TUTH Vitamin A Acetate [Vitamin A] 10,000 unit SL DAILY Umeclidinium Brm/Vilanterol Tr [Anoro Ellipta 62.5-25 Mcg INH] 1 puff INHALATION RT-DAILY Multivitamins, Thera [Multivitamin (formulary)] 1 tab PO DAILY Albuterol Inhaler [Ventolin Hfa Inhaler] 1 - 2 puff INHALATION RT-Q6H PRN PRN Reason: Shortness Of Breath Turmeric Root Extract [Turmeric] 1,000 mg PO DAILY Cyanocobalamin (Vitamin B-12) [Vitamin B-12] 1,000 mcg PO DAILY buPROPion XL [Wellbutrin XL] 150 mg PO DAILY Discontinued Lisinopril [Zestril] 2.5 mg PO QAM Carvedilol [Coreg] 3.125 mg PO BID-W/MEALS #60 tab Discharge Medication List Warfarin [Coumadin] 10 mg PO SUMOWEFR 10/15/14 [History] metFORMIN HCL [Glucophage] 500 mg PO QAM 10/15/14 [History] FLUoxetine HCL [Sarafem] 60 mg PO DAILY 08/01/16 [History] Furosemide [Lasix] 40 mg PO DAILY #30 tablet 08/06/16 [Rx] Pantoprazole [Protonix] 40 mg PO AC-BRKFST #30 tablet. 08/06/16 [Rx] Atorvastatin [Lipitor] 40 mg PO HS 11/23/16 [History] OLANZapine [ZyPREXA] 5 mg PO DAILY 08/30/18 [History] Warfarin [Coumadin] 7.5 mg PO TUTH 08/30/18 [History] Albuterol Inhaler [Ventolin Hfa Inhaler] 1 - 2 puff INHALATION RT-Q6H PRN 12/21/18 [History] Cyanocobalamin (Vitamin B-12) [Vitamin B-12] 1,000 mcg PO DAILY 12/21/18 [History] Multivitamins, Thera [Multivitamin (formulary)] 1 tab PO DAILY 12/21/18 [History] Turmeric Root Extract [Turmeric] 1,000 mg PO DAILY 12/21/18 [History] Umeclidinium Brm/Vilanterol Tr [Anoro Ellipta 62.5-25 Mcg INH] 1 puff INHALATION RT-DAILY 12/21/18 [History] Vitamin A Acetate [Vitamin A] 10,000 unit SL DAILY 12/21/18 [History] buPROPion XL [Wellbutrin XL] 150 mg PO DAILY 12/21/18 [History] Carvedilol [Coreg] 6.25 mg PO BID-W/MEALS #60 tab 12/25/18 [Rx] Lisinopril [Zestril] 20 mg PO DAILY #30 tab 12/25/18 [Rx] hydrALAZINE HCL [Apresoline] 25 mg PO BID #60 tab 12/25/18 [Rx] Follow up Appointment(s)/Referral(s): Kami Goodman DO [Primary Care Provider] - 12/31/18 11:15 am (Monday) Ronnie Galicia MD [STAFF PHYSICIAN] - 01/01/19 2:30 pm (Monday -device check and DrSarah follow up) Ambulatory/Diagnostic Orders: Prothrombin Time INR [LAB.AMB] Time Frame: 12/28/18, Location: None Selected Patient Instructions/Handouts: Pacemaker (DC) Activity/Diet/Wound Care/Special Instructions: PT/INR pending Discharge Disposition: HOME SELF-CARE
== END 2018-12-25 16:46 | disposition home or self-care (01) | DRG 243 ==
LOC: EC 13:35 → 3SCARD 15:29
PROVIDERS: ADMIT Family Medicine; ATTEND Family Medicine
DX: R00.1 Bradycardia, unspecified (principal); Z68.43 Body mass index [BMI] 50.0-59.9, adult; I50.42 Chronic combined systolic (congestive) and diastolic (congestive) heart failure; I48.1 Persistent atrial fibrillation; E66.01 Morbid (severe) obesity due to excess calories; E78.5 Hyperlipidemia, unspecified; F32.9 Major depressive disorder, single episode, unspecified; Z98.42 Cataract extraction status, left eye; Z98.41 Cataract extraction status, right eye; I11.0 Hypertensive heart disease with heart failure; I25.10 Atherosclerotic heart disease of native coronary artery without angina pectoris; I42.0 Dilated cardiomyopathy; I44.2 Atrioventricular block, complete; J44.9 Chronic obstructive pulmonary disease, unspecified; Z79.01 Long term (current) use of anticoagulants; Z79.84 Long term (current) use of oral hypoglycemic drugs; Z79.899 Other long term (current) drug therapy; Z87.891 Personal history of nicotine dependence; Z95.3 Presence of xenogenic heart valve; E11.51 Type 2 diabetes mellitus with diabetic peripheral angiopathy without gangrene
CPT/HCPCS: 33207; 36415; 71046; 80048; 80053; 83735; 83880; 84439; 84443; 84481; 84484; 85025; 85610; 85730; 93005; 93306; 94640; 94660; 94760; 99285

== ENCOUNTER → 2019-12-03 | Outpatient (CLI) | payer MEDICARE ==
[2019-12-03 15:43] LABS: HCT 48.2 % (39.0-53.0); MCH 29.4 pg (25.0-35.0); MCHC 31.1 g/dL (31.0-37.0); MCV 94.6 fL (80.0-100.0); Mean Platelet Volume 7.4; Platelet Count 239 k/uL (150-450); RDW 13.9 % (11.5-15.5); WBC 9.7 k/uL (3.8-10.6)
[2019-12-03 23:55] LABS: Hemoglobin A1C 6.6 % (4.0-6.0)
[2019-12-04 00:10] LABS: African American GFR (CKD) 70.6 (60.0-200.0); Albumin 4.6 g/dL (3.80-4.90); Albumin/Globulin Ratio 1.59 (1.60-3.17); Anion Gap 6.5 mmol/L (4.00-12.00); BUN/Creat Ratio 34.17 Ratio (12.00-20.00); Calcium 9.5 mg/dL (8.7-10.3); Carbon Dioxide 28.5 mmol/L (21.6-31.8); Chol/HDL Ratio 2.58; Globulin 2.9 g/dL (1.6-3.3); LDL Cholesterol,Calculated 30.2 mg/dL (0.0-131.0); Non-African American GFR(CKD) 60.9 (60.0-200.0); Potassium 5.5 mmol/L (3.5-5.5); Total Bilirubin 0.5 mg/dL (0.3-1.2); Total Protein 7.5 g/dL (6.2-8.2); VLDL Calculation 29.8 mg/dL (5.00-40.00)
== END | disposition home or self-care (01) ==
LOC: LABWHC1 14:12
PROVIDERS: ATTEND Family Medicine
DX: I50.22 Chronic systolic (congestive) heart failure (principal); E11.69 Type 2 diabetes mellitus with other specified complication
CPT/HCPCS: 36415; 80053; 80061; 83036; 85027

== ENCOUNTER → 2020-12-09 | Outpatient (CLI) | payer MEDICARE | END | disposition home or self-care (01) | CPT/HCPCS: 36415; 80053; 83036; 83880; 84153; 84443; 85027 ==

== ENCOUNTER 2021-02-04 09:23 | Emergency (ER) | payer MEDICARE ==
[2021-02-04 09:35] VITALS: RESP 18; TEMP 98
[2021-02-04] MEDS ORDERED: TOPICAL SKIN ADHESIVE 1 EACH AMP TOPICAL ONE (09:52)
[2021-02-04 10:29] LABS: INR 2.7 (<1.2); Prothrombin Time 26.5 sec (9.0-12.0)
[2021-02-04] MEDS ORDERED: LIDOCAINE 1%-EPI 1:100,000 20 ML VIAL SQ STA (10:53)
--- NOTE | 2021-02-04 11:17 | ED ---
Wound/Laceration HPI - General Chief Complaint: Wound/Laceration Stated Complaint: Leg laceration Time Seen by Provider: 02/04/21 09:34 Source: patient, RN notes reviewed Mode of arrival: ambulatory Limitations: no limitations - History of Present Illness Initial Comments: Patient is a 70-year-old male that presents to emergency department complaining of a right calf bleeding small laceration. He notes he was taking out the garbage last night one object in the bag poked him in the leg causing a break in the skin. He notes that he does take Coumadin for a valve replacement. He notes that his INR is usually under control. He notes that he tried bandages and stump at home but cannot get the bleeding stopped so he came here. Patient denied any other issues or complaints at this time. He was otherwise a well- appearing 70-year-old male distress or pain. he denied any chest pain shortness of breath headache nausea vomiting diarrhea constipation fever fatigue chills. - Related Data Home Medications Medication Instructions Recorded Confirmed Warfarin [Coumadin] 10 mg PO SUMOWEFR 10/15/14 12/21/18 metFORMIN HCL [Glucophage] 500 mg PO QAM 10/15/14 12/21/18 FLUoxetine HCL [Sarafem] 60 mg PO DAILY 08/01/16 12/21/18 Atorvastatin [Lipitor] 40 mg PO HS 11/23/16 12/21/18 OLANZapine [ZyPREXA] 5 mg PO DAILY 08/30/18 12/21/18 Warfarin [Coumadin] 7.5 mg PO TUTH 08/30/18 12/21/18 Albuterol Inhaler (Mhu) [Ventolin 1 - 2 puff INHALATION RT-Q6H PRN 12/21/18 12/21/18 Hfa Inhaler (Mhu)] Cyanocobalamin (Vitamin B-12) 1,000 mcg PO DAILY 12/21/18 12/21/18 [Vitamin B-12] Multivitamins, Thera [Multivitamin 1 tab PO DAILY 12/21/18 12/21/18 (formulary)] Turmeric Root Extract [Turmeric] 1,000 mg PO DAILY 12/21/18 12/21/18 Umeclidinium Brm/Vilanterol Tr 1 puff INHALATION RT-DAILY 12/21/18 12/21/18 [Anoro Ellipta 62.5-25 Mcg INH] Vitamin A Acetate [Vitamin A] 10,000 unit SL DAILY 12/21/18 12/21/18 buPROPion XL [Wellbutrin XL] 150 mg PO DAILY 12/21/18 12/21/18 Previous Rx's Medication Instructions Recorded Furosemide [Lasix] 40 mg PO DAILY #30 tablet 08/06/16 Pantoprazole [Protonix] 40 mg PO AC-BRKFST #30 tablet. 08/06/16 carvediloL [Coreg] 6.25 mg PO BID-W/MEALS #60 tab 12/25/18 hydrALAZINE HCL [Apresoline] 25 mg PO BID #60 tab 12/25/18 lisinopriL [Zestril] 20 mg PO DAILY #30 tab 12/25/18 Allergies Allergy/AdvReac Type Severity Reaction Status Date / Time No Known Allergies Allergy Verified 12/21/18 14:19 Review of Systems ROS Statement: Those systems with pertinent positive or pertinent negative responses have been documented in the HPI. ROS Other: All systems not noted in ROS Statement are negative. Past Medical History Past Medical History: Diabetes Mellitus, Hypertension Additional Past Medical History / Comment(s): irregular heartbeat, varicose veins, 2 herniated disk/degenerative disks, leaky heart valve, "blood clots in the heart" History of Any Multi-Drug Resistant Organisms: None Reported Past Surgical History: Appendectomy, Bowel Resection, Cardiac Valve Replacement, Heart Catheterization, Orthopedic Surgery, Tonsillectomy Additional Past Surgical History / Comment(s): left shoulder surgery, surgery for sleep apnea, deana cataracts, Aortic Valve replacement (bovine) 06/2016 Past Anesthesia/Blood Transfusion Reactions: No Reported Reaction Past Psychological History: Depression Smoking Status: Former smoker Past Alcohol Use History: Occasional Past Drug Use History: None Reported - Past Family History Mother Family Medical History: No Reported History General Exam Limitations: no limitations General appearance: alert, in no apparent distress Head exam: Present: atraumatic, normocephalic, normal inspection Eye exam: Present: normal appearance, PERRL, EOMI. Absent: scleral icterus, conjunctival injection, periorbital swelling Neck exam: Present: normal inspection Respiratory exam: Present: normal lung sounds bilaterally. Absent: respiratory distress, wheezes, rales, rhonchi, stridor Cardiovascular Exam: Present: regular rate, normal rhythm, normal heart sounds. Absent: systolic murmur, diastolic murmur, rubs, gallop, clicks GI/Abdominal exam: Present: soft, normal bowel sounds. Absent: distended, tenderness, guarding, rebound, rigid Extremities exam: Present: normal inspection, full ROM, normal capillary refill. Absent: tenderness, pedal edema, joint swelling, calf tenderness Neurological exam: Present: alert, oriented X3 Psychiatric exam: Present: normal affect, normal mood Skin exam: Present: warm, dry, intact, normal color. Absent: rash Expanded Type of lesion: Present: laceration (Lateral posterior right calf, approximately 1.5 cm, minimal bleeding.) Course Vital Signs 02/04/21 09:30 Temperature 98 F Pulse Rate 63 Respiratory 18 Rate Blood Pressure 129/72 O2 Sat by Pulse 98 Oximetry Procedures - Laceration Laceration #1 Consent Obtained: verbal consent Site: lower extremity (Posterior right calf lateral side) Size (cm): 2 Description: linear Depth: simple, single layer Anesthetic Used: lidocaine 1%, with epi Anesthesia Technique: local infiltration Amount (mls): 2 Pre-repair: irrigated extensively Type of Sutures: nylon Size of Sutures: 4-0 Number of Sutures: 2 Technique: simple, interrupted Patient Tolerated Procedure: well, no complications Medical Decision Making - Medical Decision Making 70-year-old male with a 2 cm small laceration to the lateral posterior aspect of the right calf that is been slowly bleeding since last night. PT/INR 2.7. Patient tolerated suturing well. Patient states that he is up-to-date on his tetanus vaccine. Case discussed with Dr. Jc, patient can discharge home. - Lab Data Lab Results 02/04/21 Range/Units 10:11 PT 26.5 H (9.0-12.0) sec INR 2.7 H (<1.2) Disposition Clinical Impression: Laceration Disposition: HOME SELF-CARE Condition: Stable Instructions (If sedation given, give patient instructions): Laceration (ED), Care For Your Stitches (ED) Additional Instructions: Please return to the Emergency Department if symptoms worsen or any other concerns. Follow-up with primary care 1-2 days. Keep area clean and dry. Keep pressure dressing on throughout the day. Is patient prescribed a controlled substance at d/c from ED?: No Referrals: Kami Goodman DO [Primary Care Provider] - 1-2 days Time of Disposition: 11:17
[2021-02-04 11:45] VITALS: BP 91/58; PULSE 76
== END 2021-02-04 11:38 | disposition home or self-care (01) ==
LOC: EC 09:23
DX: S81.811A Laceration without foreign body, right lower leg, initial encounter (principal); E11.9 Type 2 diabetes mellitus without complications; I10 Essential (primary) hypertension; Z79.84 Long term (current) use of oral hypoglycemic drugs; Z87.891 Personal history of nicotine dependence; W26.8XXA Contact with other sharp object(s), not elsewhere classified, initial encounter; Y93.89 Activity, other specified
CPT/HCPCS: 12001; 36415; 85610; 99283

== ENCOUNTER → 2021-07-13 | Outpatient (CLI) | payer MEDICARE ==
[2021-07-13 18:26] LABS: HGB 12.6 g/dL (13.0-17.0); MCHC 30.7 g/dL (32.0-37.0); MCV 100.7 fL (80.0-97.0); Mean Platelet Volume 10.1 fL (9.5-12.2); NRBC Per 100 WBC 0 /100 WBCS (0.0-0.0); Platelet Count 263 X 10*3/uL (140-440); RBC 4.07 X 10*6/uL (4.40-5.60); RDW 14.6 % (11.5-14.5); WBC 7.98 X 10*3/uL (4.50-10.00)
[2021-07-13 18:39] LABS: African American GFR (CKD) 64.2 (60.0-200.0); Albumin/Globulin Ratio 1.36 (1.60-3.17); Anion Gap 12.8 mmol/L (10.00-18.00); BUN/Creat Ratio 27.05 Ratio (12.00-20.00); Blood Urea Nitrogen 34.9 mg/dL (9.0-27.0); Calcium 9.2 mg/dL (8.7-10.3); Carbon Dioxide 25.2 mmol/L (20.0-27.5); Globulin 2.9 g/dL (1.6-3.3); Non-African American GFR(CKD) 55.4 (60.0-200.0); Potassium 4.9 mmol/L (3.5-5.5); Total Bilirubin 0.3 mg/dL (0.30-1.20); Total Protein 6.9 g/dL (6.2-8.2)
== END | disposition home or self-care (01) ==
LOC: LABWHC1 13:24
PROVIDERS: ATTEND Physician Assistant Medical
DX: R53.83 Other fatigue (principal); I10 Essential (primary) hypertension; E66.01 Morbid (severe) obesity due to excess calories; I48.91 Unspecified atrial fibrillation; E11.69 Type 2 diabetes mellitus with other specified complication
CPT/HCPCS: 36415; 80053; 83036; 84443; 85027

== ENCOUNTER 2021-08-25 14:24 | Inpatient (IN) | payer MEDICARE ==
[2021-08-25 14:45] LABS: Glucose,Whole Blood 163 mg/dL (75-99)
[2021-08-25] MEDS ORDERED: IBUPROFEN 600 MG TAB PO STA (14:57)
[2021-08-25] MEDS ORDERED: ACETAMINOPHEN TAB 500 MG TAB PO STA (14:57)
[2021-08-25] MEDS ORDERED: cefTRIAXone IN SWFI 1,000 MG/10 ML SYRINGE IVP STA (15:11)
--- NOTE | 2021-08-25 15:31 | ED ---
General Adult HPI - General Chief complaint: Altered Mental Status Stated complaint: AMS Time Seen by Provider: 08/25/21 14:35 Source: patient, EMS, RN notes reviewed, old records reviewed Mode of arrival: EMS Limitations: altered mental status - History of Present Illness Initial comments: This is a 70-year-old male who presents to the emergency department with the complaint of altered mental status. Patient also has had a fever. No other history is available this time no family or caregivers came with the patient and the patient is not answering questions accurately. EMS stated was afraid that the patient had a urinary tract infection. - Related Data Home Medications Medication Instructions Recorded Confirmed Warfarin [Coumadin] 10 mg PO SUMOWEFR 10/15/14 12/21/18 metFORMIN HCL [Glucophage] 500 mg PO QAM 10/15/14 12/21/18 FLUoxetine HCL [Sarafem] 60 mg PO DAILY 08/01/16 12/21/18 Atorvastatin [Lipitor] 40 mg PO HS 11/23/16 12/21/18 OLANZapine [ZyPREXA] 5 mg PO DAILY 08/30/18 12/21/18 Warfarin [Coumadin] 7.5 mg PO TUTH 08/30/18 12/21/18 Albuterol Inhaler (Mhu) [Ventolin 1 - 2 puff INHALATION RT-Q6H PRN 12/21/18 12/21/18 Hfa Inhaler (Mhu)] Cyanocobalamin (Vitamin B-12) 1,000 mcg PO DAILY 12/21/18 12/21/18 [Vitamin B-12] Multivitamins, Thera [Multivitamin 1 tab PO DAILY 12/21/18 12/21/18 (formulary)] Turmeric Root Extract [Turmeric] 1,000 mg PO DAILY 12/21/18 12/21/18 Umeclidinium Brm/Vilanterol Tr 1 puff INHALATION RT-DAILY 12/21/18 12/21/18 [Anoro Ellipta 62.5-25 Mcg INH] Vitamin A Acetate [Vitamin A] 10,000 unit SL DAILY 12/21/18 12/21/18 buPROPion XL [Wellbutrin XL] 150 mg PO DAILY 12/21/18 12/21/18 Previous Rx's Medication Instructions Recorded Furosemide [Lasix] 40 mg PO DAILY #30 tablet 08/06/16 Pantoprazole [Protonix] 40 mg PO AC-BRKFST #30 tablet. 08/06/16 carvediloL [Coreg] 6.25 mg PO BID-W/MEALS #60 tab 12/25/18 hydrALAZINE HCL [Apresoline] 25 mg PO BID #60 tab 12/25/18 lisinopriL [Zestril] 20 mg PO DAILY #30 tab 12/25/18 Allergies Allergy/AdvReac Type Severity Reaction Status Date / Time No Known Allergies Allergy Verified 08/25/21 14:33 Review of Systems ROS Statement: Those systems with pertinent positive or pertinent negative responses have been documented in the HPI. ROS Other: All systems not noted in ROS Statement are negative. Past Medical History Past Medical History: Diabetes Mellitus, Hypertension Additional Past Medical History / Comment(s): irregular heartbeat, varicose veins, 2 herniated disk/degenerative disks, leaky heart valve, "blood clots in the heart" History of Any Multi-Drug Resistant Organisms: None Reported Past Surgical History: Appendectomy, Bowel Resection, Cardiac Valve Replacement, Heart Catheterization, Orthopedic Surgery, Tonsillectomy Additional Past Surgical History / Comment(s): left shoulder surgery, surgery for sleep apnea, deana cataracts, Aortic Valve replacement (bovine) 06/2016 Past Anesthesia/Blood Transfusion Reactions: No Reported Reaction Past Psychological History: Depression Smoking Status: Former smoker Past Alcohol Use History: Occasional Past Drug Use History: None Reported - Past Family History Mother Family Medical History: No Reported History General Exam - General Exam Comments Initial Comments: GENERAL: Patient is well-developed and well-nourished. Patient is nontoxic and well- hydrated and is in mild distress. ENT: Neck is soft and supple. No significant lymphadenopathy is noted. Oropharynx is clear. Moist mucous membranes. Neck has full range of motion without eliciting any pain. EYES: The sclera were anicteric and conjunctiva were pink and moist. Extraocular movements were intact and pupils were equal round and reactive to light. Eyelids were unremarkable. PULMONARY: Unlabored respirations. Good breath sounds bilaterally. No audible rales rhonchi or wheezing was noted. CARDIOVASCULAR: There is a regular rate and rhythm without any murmurs gallops or rubs. ABDOMEN: Soft and nontender with normal bowel sounds. SKIN: Skin is clear with no lesions or rashes and otherwise unremarkable. NEUROLOGIC: Patient is alert and oriented 1. Cranial nerves II through XII are grossly intact. Motor and sensory are also intact. Normal speech, volume and content. Symmetrical smile. MUSCULOSKELETAL: Normal extremities with adequate strength and full range of motion. LYMPHATICS: No significant lymphadenopathy is noted PSYCHIATRIC: Unable to assess secondary to altered mental status Limitations: altered mental status Course Vital Signs 08/25/21 08/25/21 14:34 18:31 Temperature 101.2 F H 98.2 F Pulse Rate 85 60 Respiratory 24 18 Rate Blood Pressure 97/65 102/65 O2 Sat by Pulse 96 98 Oximetry Medical Decision Making - Medical Decision Making Patient's ideal body weight 70 kg for his height Patient's EKG shows a paced rhythm at 60 bpm QRS is under 97 QT interval 494 QTC is 494[address] No ST segment elevation or depression Chest x-ray showed no acute abnormality. CT of the chest showed no acute abnormality. CT of the brain showed no acute abnormality. Patient was given Rocephin because of the fever but no source was ever ident ified. Patient was reevaluated by myself at 1800 and he was more alert and oriented that he was when he arrived but he was still not back to his baseline according to family. I also checked the patient's neck for stiffness he had none he also stated it did not hurt to move his neck around. Patient had no pain in the abdomen and on palpation there was also no pain. I spoke with Dr. Dr. Goodman agreed to admit the patient admitted the patient wrote admitting orders I consult infectious disease. - Lab Data Result diagrams: 08/25/21 15:30 08/25/21 15:30 Lab Results 08/25/21 08/25/21 08/25/21 Range/Units 14:43 15:20 15:30 WBC 15.7 H (3.8-10.6) k/uL RBC 4.28 L (4.30-5.90) m/uL Hgb 13.5 (13.0-17.5) gm/dL Hct 42.9 (39.0-53.0) % MCV 100.3 H (80.0-100.0) fL MCH 31.6 (25.0-35.0) pg MCHC 31.5 (31.0-37.0) g/dL RDW 13.5 (11.5-15.5) % Plt Count 223 (150-450) k/uL MPV 7.0 Neutrophils % 90 % Lymphocytes % 3 % Monocytes % 5 % Eosinophils % 1 % Basophils % 0 % Neutrophils # 14.2 H (1.3-7.7) k/uL Lymphocytes # 0.4 L (1.0-4.8) k/uL Monocytes # 0.8 (0-1.0) k/uL Eosinophils # 0.2 (0-0.7) k/uL Basophils # 0.1 (0-0.2) k/uL PT (9.0-12.0) sec INR (<1.2) APTT (22.0-30.0) sec Sodium (137-145) mmol/L Potassium (3.5-5.1) mmol/L Chloride (98-107) mmol/L Carbon Dioxide (22-30) mmol/L Anion Gap mmol/L BUN (9-20) mg/dL Creatinine (0.66-1.25) mg/dL Est GFR (CKD-EPI)AfAm (>60 ml/min/1.73 sqM) Est GFR (CKD-EPI)NonAf (>60 ml/min/1.73 sqM) Glucose (74-99) mg/dL POC Glucose (mg/dL) 163 H (75-99) mg/dL POC Glu [employer] Equipment Repairer ID Miladys Graham Lactic Ac Sepsis Rflx Plasma Lactic Acid Epi (0.7-2.0) mmol/L Calcium (8.4-10.2) mg/dL Total Bilirubin (0.2-1.3) mg/dL AST (17-59) U/L ALT (4-49) U/L Alkaline Phosphatase (38-126) U/L Total Protein (6.3-8.2) g/dL Albumin (3.5-5.0) g/dL Urine Color Yellow Urine Appearance Clear (Clear) Urine pH 7.0 (5.0-8.0) Ur Specific [place] 1.022 (1.001-1.035) Urine Protein 1+ H (Negative) Urine Glucose (UA) Negative (Negative) Urine Ketones Trace H (Negative) Urine Blood Negative (Negative) Urine Nitrite Negative (Negative) Urine Bilirubin Negative (Negative) Urine Urobilinogen <2.0 (<2.0) mg/dL Ur Leukocyte Esterase Negative (Negative) Urine RBC 1 (0-5) /hpf Urine WBC 1 (0-5) /hpf Ur Squamous Epith Cells 3 (0-4) /hpf Hyaline Casts 3 H (0-2) /lpf Urine Mucus Rare H (None) /hpf Coronavirus (PCR) (Not Detectd) 08/25/21 08/25/21 08/25/21 Range/Units 15:30 15:30 15:30 WBC (3.8-10.6) k/uL RBC (4.30-5.90) m/uL Hgb (13.0-17.5) gm/dL Hct (39.0-53.0) % MCV (80.0-100.0) fL MCH (25.0-35.0) pg MCHC (31.0-37.0) g/dL RDW (11.5-15.5) % Plt Count (150-450) k/uL MPV Neutrophils % % Lymphocytes % % Monocytes % % Eosinophils % % Basophils % % Neutrophils # (1.3-7.7) k/uL Lymphocytes # (1.0-4.8) k/uL Monocytes # (0-1.0) k/uL Eosinophils # (0-0.7) k/uL Basophils # (0-0.2) k/uL PT 20.4 H (9.0-12.0) sec INR 2.0 H (<1.2) APTT 33.8 H (22.0-30.0) sec Sodium 138 (137-145) mmol/L Potassium 4.1 (3.5-5.1) mmol/L Chloride 100 (98-107) mmol/L Carbon Dioxide 28 (22-30) mmol/L Anion Gap 10 mmol/L BUN 29 H (9-20) mg/dL Creatinine 0.97 (0.66-1.25) mg/dL Est GFR (CKD-EPI)AfAm >90 (>60 ml/min/1.73 sqM) Est GFR (CKD-EPI)NonAf 79 (>60 ml/min/1.73 sqM) Glucose 137 H (74-99) mg/dL POC Glucose (mg/dL) (75-99) mg/dL POC Glu [employer] Equipment Repairer ID Lactic Ac Sepsis Rflx Plasma Lactic Acid Epi 2.5 H* (0.7-2.0) mmol/L Calcium 8.9 (8.4-10.2) mg/dL Total Bilirubin 0.6 (0.2-1.3) mg/dL AST 34 (17-59) U/L ALT 20 (4-49) U/L Alkaline Phosphatase 65 (38-126) U/L Total Protein 7.2 (6.3-8.2) g/dL Albumin 4.1 (3.5-5.0) g/dL Urine Color Urine Appearance (Clear) Urine pH (5.0-8.0) Ur Specific [place] (1.001-1.035) Urine Protein (Negative) Urine Glucose (UA) (Negative) Urine Ketones (Negative) Urine Blood (Negative) Urine Nitrite (Negative) Urine Bilirubin (Negative) Urine Urobilinogen (<2.0) mg/dL Ur Leukocyte Esterase (Negative) Urine RBC (0-5) /hpf Urine WBC (0-5) /hpf Ur Squamous Epith Cells (0-4) /hpf Hyaline Casts (0-2) /lpf Urine Mucus (None) /hpf Coronavirus (PCR) (Not Detectd) 08/25/21 08/25/21 Range/Units 15:33 15:47 WBC (3.8-10.6) k/uL RBC (4.30-5.90) m/uL Hgb (13.0-17.5) gm/dL Hct (39.0-53.0) % MCV (80.0-100.0) fL MCH (25.0-35.0) pg MCHC (31.0-37.0) g/dL RDW (11.5-15.5) % Plt Count (150-450) k/uL MPV Neutrophils % % Lymphocytes % % Monocytes % % Eosinophils % % Basophils % % Neutrophils # (1.3-7.7) k/uL Lymphocytes # (1.0-4.8) k/uL Monocytes # (0-1.0) k/uL Eosinophils # (0-0.7) k/uL Basophils # (0-0.2) k/uL PT (9.0-12.0) sec INR (<1.2) APTT (22.0-30.0) sec Sodium (137-145) mmol/L Potassium (3.5-5.1) mmol/L Chloride (98-107) mmol/L Carbon Dioxide (22-30) mmol/L Anion Gap mmol/L BUN (9-20) mg/dL Creatinine (0.66-1.25) mg/dL Est GFR (CKD-EPI)AfAm (>60 ml/min/1.73 sqM) Est GFR (CKD-EPI)NonAf (>60 ml/min/1.73 sqM) Glucose (74-99) mg/dL POC Glucose (mg/dL) (75-99) mg/dL POC Glu [employer] Equipment Repairer ID Lactic Ac Sepsis Rflx Y Plasma Lactic Acid Epi (0.7-2.0) mmol/L Calcium (8.4-10.2) mg/dL Total Bilirubin (0.2-1.3) mg/dL AST (17-59) U/L ALT (4-49) U/L Alkaline Phosphatase (38-126) U/L Total Protein (6.3-8.2) g/dL Albumin (3.5-5.0) g/dL Urine Color Urine Appearance (Clear) Urine pH (5.0-8.0) Ur Specific [place] (1.001-1.035) Urine Protein (Negative) Urine Glucose (UA) (Negative) Urine Ketones (Negative) Urine Blood (Negative) Urine Nitrite (Negative) Urine Bilirubin (Negative) Urine Urobilinogen (<2.0) mg/dL Ur Leukocyte Esterase (Negative) Urine RBC (0-5) /hpf Urine WBC (0-5) /hpf Ur Squamous Epith Cells (0-4) /hpf Hyaline Casts (0-2) /lpf Urine Mucus (None) /hpf Coronavirus (PCR) Not Detected (Not Detectd) Disposition Clinical Impression: Altered mental status, Fever of unknown origin Disposition: ADMITTED IP TO THIS HOSP Referrals: Cory Goodman MD [Primary Care Provider] - 1-2 days Time of Disposition: 18:44
[2021-08-25 15:36] LABS: Basophils # (A) 0.1 k/uL (0-0.2); Basophils % (A) 0 %; Eosinophils # (A) 0.2 k/uL (0-0.7); Eosinophils % (A) 1 %; HCT 42.9 % (39.0-53.0); HGB 13.5 gm/dL (13.0-17.5); Lymphocytes # (A) 0.4 k/uL (1.0-4.8); Lymphocytes % (A) 3 %; MCH 31.6 pg (25.0-35.0); MCHC 31.5 g/dL (31.0-37.0); MCV 100.3 fL (80.0-100.0); Monocytes # (A) 0.8 k/uL (0-1.0); Monocytes % (A) 5 %; Neutrophils # (A) 14.2 k/uL (1.3-7.7); Neutrophils % (A) 90 %; Platelet Count 223 k/uL (150-450); RBC 4.28 m/uL (4.30-5.90); RDW 13.5 % (11.5-15.5); WBC 15.7 k/uL (3.8-10.6)
[2021-08-25 15:44] LABS: ALT 20 U/L (4-49); AST 34 U/L (17-59); African American GFR (CKD) >90 (>60 ml/min/1.73 sqM); Albumin 4.1 g/dL (3.5-5.0); Alkaline Phosphatase 65 U/L (38-126); Anion Gap 10 mmol/L; Blood Urea Nitrogen 29 mg/dL (9-20); Calcium 8.9 mg/dL (8.4-10.2); Carbon Dioxide 28 mmol/L (22-30); Chloride 100 mmol/L (98-107); Glucose 137 mg/dL (74-99); Non-African American GFR(CKD) 79 (>60 ml/min/1.73 sqM); Potassium 4.1 mmol/L (3.5-5.1); Sodium 138 mmol/L (137-145); Total Bilirubin 0.6 mg/dL (0.2-1.3); Total Protein 7.2 g/dL (6.3-8.2)
[2021-08-25 15:50] LABS: Partial Thromboplastin Time 33.8 sec (22.0-30.0); Prothrombin Time 20.4 sec (9.0-12.0)
[2021-08-25] MEDS ORDERED: POTASSIUM CHLORIDE 20 MEQ in WATER FOR INJECTION 1 100ML.BAG IVPB SCH (16:00)
[2021-08-25] MEDS ORDERED: SODIUM CHLORIDE 0.9% 500 ML 500 ML IV ONE (16:01)
[2021-08-25] MEDS ORDERED: SODIUM CHLORIDE 0.9% 1,000 ML IV ONE ×2 (16:01→18:47)
--- NOTE | 2021-08-25 16:02 | XR ---
EXAMINATION TYPE: XR chest 2V DATE OF EXAM: 08/25/2021 COMPARISON: X-ray dated 12/25/2018 HISTORY: Fever TECHNIQUE: Frontal and lateral views of the chest are obtained. FINDINGS: Increased cardiac transverse diameter, associated pericardial effusion cannot be excluded. Congested bilateral pulmonary vasculature with prominent interstitial markings suggestive of acute pulmonary ed alvino, please correlate clinically for congestive heart failure. Left upper chest wall single lead pace maker, unchanged. Questionable pulmonary infiltration in the right lower lung zone, recommend follow-up to resolution. Suspected minimal pleural fluid. No definite pneumothorax. Sternotomy wire sutures. Left proximal hum eral fixation. Cardiac valve prosthesis. Degenerative changes of thoracic spine. IMPRESSION: Suspected pulmonary edema with cardiomegaly, please correlate clinically for congestive heart failure . Questionable subtle infiltration in the right lower lung zone, underlying infection can't be excluded , follow-up to resolution is advised. Other findings as described above.
[2021-08-25 16:13] LABS: Appearance,Urine Clear (Clear); Bilirubin,Urine Negative (Negative); Blood,Urine Negative (Negative); Color,Urine Yellow; Glucose,Urine (UA) Negative (Negative); Hyaline Casts,Urine 3 /lpf (0-2); Ketones,Urine Trace (Negative); Leukocyte Esterase,Urine Negative (Negative); Mucus,Urine Rare /hpf; Nitrite,Urine Negative (Negative); Protein,Urine 1+ (Negative); RBC,Urine 1 /hpf (0-5); Specific Gravity,Urine 1.022 (1.001-1.035); Squamous Epithelial Cell,Urine 3 /hpf (0-4); Urobilinogen,Urine <2.0 mg/dL (<2.0); WBC,Urine 1 /hpf (0-5)
[2021-08-25] MEDS: SODIUM CHLORIDE 0.9% 500 ML 500 ML IV SCH (16:50)
--- NOTE | 2021-08-25 17:25 | CT ---
EXAMINATION TYPE: CT brain wo con CT DLP: 1135.4 mGycm, Automated exposure control for dose reduction was used. DATE OF EXAM: 08/25/2021 5:11 PM COMPARISON: Prior CT Brain from 01/08/2011 . CLINICAL INDICATION:Male, 70 years old with history of Altered mental status, weakness, fever TECHNIQUE: Brain: Multiple axial CT images of the brain were obtained without IV contrast. FINDINGS: Brain: Extra-axial spaces: No abnormal extra-axial fluid collections. Ventricular system: Within normal limits Cerebral parenchyma: No acute intraparenchymal hemorrhage or mass effect. The tony-white junction is well differentiated. Scattered hypoattenuating areas are seen within the white matter. Cerebellum: Unremarkable. Mass effect: No evidence of midline shift. Intracranial vasculature: Atherosclerotic calcifications of the intracranial vessels. Soft tissues: Normal. Calvarium/osseous structures: No depressed skull fracture. Paranasal sinuses and mastoid air cells: Mild scattered paranasal sinus disease. Visualized orbits: Bilateral aphakia IMPRESSION: 1. No acute intracranial process. 2. Nonspecific white matter changes, likely secondary to chronic small vessel ischemic disease.
--- NOTE | 2021-08-25 17:31 | CT ---
EXAMINATION TYPE: CT chest angio for PE CT DLP: 1004.3 mGycm, Automated exposure control for dose reduction was used. DATE OF EXAM: 08/25/2021 5:20 PM COMPARISON: . Chest radiograph from same day. CLINICAL INDICATION:Male, 70 years old with history of Dyspnea, fever; elevated d-dimer, fever TECHNIQUE/CONTRAST: CTA scan of the thorax is performed with IV Contrast, patient injected with 100 mL of Isovue 370, pul monary embolism protocol. MIP images are created and reviewed. FINDINGS: Motion limits evaluation of lung parenchyma. Pulmonary Artery: There is no evidence for a filling defect within the pulmonary vasculature to sugge st acute pulmonary embolism. The pulmonary artery is dilated measuring up to 40 mm. Lungs/Pleura: No evidence of focal consolidation, pleural effusion or pneumothorax. Airway: Large airways are patent. Heart: The heart is enlarged for size. Aortic valve leaflet calcifications are present. Vasculature: No evidence of aortic aneurysm. Mediastinum: No gross evidence of adenopathy. Musculoskeletal: No acute osseous abnormalities. Sternotomy wires are present. There is cardiac condu ction device with leads terminating within the right ventricle. Multilevel disc degeneration changes. Left shoulder show no focal changes are present. Soft Tissues: Unremarkable. Lower neck: No significant findings. Upper Abdomen: No significant findings. IMPRESSION: 1. No evidence of pulmonary embolism. 2. Cardiomegaly. 3. Aortic valve leaflet calcifications. 4. Findings suggestive of pulmonary hypertension.
[2021-08-25 23:58] LABS: Glucose,Whole Blood 125 mg/dL (75-99)
[2021-08-26] MEDS: WARFARIN 7.5 MG TAB PO SCH ×2 (00:56→00:58)
[2021-08-26] MEDS: OLANZapine 10 MG TAB PO SCH ×2 (00:56→21:37)
[2021-08-26] MEDS: tiZANidine 4 MG TAB PO SCH ×2 (00:57→21:37)
[2021-08-26] MEDS: AMPICILLIN-SULBACTAM 3 GM in SODIUM CHLORIDE 0.9% 100 ML IVPB SCH ×2 (01:03→05:04)
[2021-08-26] MEDS: IBUPROFEN 600 MG TAB PO SCH ×4 (01:03→21:38)
[2021-08-26] MEDS: METOPROLOL TARTRATE 50 MG TAB PO SCH ×2 (08:20→16:48)
[2021-08-26] MEDS: lisinopriL 20 MG TAB PO SCH (08:20)
[2021-08-26 08:34] LABS: Glucose,Whole Blood 177 mg/dL (75-99)
[2021-08-26 09:24] LABS: INR 2.06 (0.90-1.11); Prothrombin Time 21.9 sec (9.9-11.9)
[2021-08-26 11:56] LABS: Glucose,Whole Blood 113 mg/dL (75-99)
[2021-08-26 12:59] LABS: Appearance,Urine Cloudy (Clear); Bilirubin,Urine Negative (Negative); Blood,Urine Small (Negative); Color,Urine Yellow; Glucose,Urine (UA) Negative (Negative); Ketones,Urine Negative (Negative); Leukocyte Esterase,Urine Large (Negative); Mucus,Urine Rare /hpf; Nitrite,Urine Negative (Negative); PH, Urine 5.5 (5.0-8.0); Protein,Urine Trace (Negative); RBC,Urine 6 /hpf (0-5); Specific Gravity,Urine 1.031 (1.001-1.035); Squamous Epithelial Cell,Urine <1 /hpf (0-4); Urobilinogen,Urine <2.0 mg/dL (<2.0); WBC,Urine 61 /hpf (0-5)
[2021-08-26] MEDS: TAMSULOSIN 0.4 MG CAP.ER.24H PO SCH (13:19)
[2021-08-26] MEDS: PANTOPRAZOLE 40 MG/10 ML VIAL IVP SCH (13:20)
--- NOTE | 2021-08-26 13:40 | CT ---
EXAMINATION TYPE: CT abdomen pelvis wo con DATE OF EXAM: 08/26/2021 COMPARISON: None HISTORY: fever CT DLP: 1854.2 mGycm Automated exposure control for dose reduction was used. TECHNIQUE: Helical acquisition of images was performed from the lung bases through the pelvis. FINDINGS: Lack of contrast limits exam. Motion artifact also limits exam. LUNG BASES: Bilateral subsegmental areas of consolidation. Heart enlarged. Cardiac leads noted. [place] otomy wires seen and there is aortic valve. Heart enlarged. Pulmonary arteries are dilated correlate for pulmonary arterial hypertension. LIVER/GB: No significant abnormality is appreciated. PANCREAS: No significant abnormality is seen. SPLEEN: No significant abnormality is seen. ADRENALS: No significant abnormality is seen. KIDNEYS: Contrast within the collecting systems likely from previous recent CT scan. ADENOPATHY: None visualized. OSSEOUS STRUCTURES: Hypertrophic and degenerative change spine. BOWEL: Bowel gas pattern nonspecific with no obstruction. 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 OTHER: A bladder is contrast-filled and mildly decompressed. IMPRESSION: 1. Bibasilar atelectasis versus early infiltrate. 2. Contrast remains within the collecting system from the previous day's CT scan correlate with renal function studies to assess renal function.
[2021-08-26] MEDS: buPROPion XL 300 MG TAB.ER.24H PO SCH (16:48)
[2021-08-26 16:57] LABS: Glucose,Whole Blood 109 mg/dL (75-99)
[2021-08-26] MEDS ORDERED: WARFARIN 7.5 MG TAB PO SCH (21:00)
[2021-08-26 21:26] LABS: Glucose,Whole Blood 134 mg/dL (75-99)
[2021-08-26] MEDS: ATORVASTATIN 40 MG TAB PO SCH (21:37)
[2021-08-26] MEDS: ACETAMINOPHEN TAB 325 MG TAB PO PRN (21:37)
[2021-08-26] MEDS: traMADol 50 MG TAB PO PRN (21:38)
--- NOTE | 2021-08-26 22:32 | P.CONS ---
History of Present Illness - Reason for Consult Consult date: 08/26/21 Fever of unknown origin Requesting physician: Cory Goodman - Chief Complaint Weakness and rigors and chills x 2 days - History of Present Illness Patient is a 70-year male presenting to the ER yesterday afternoon for evaluation of mental status changes in this patient also noticed to have a fever EMS mention the was afraid the patient may have a urinary tract infection patient on arrival to the ER did have a fever of 101.2 F patient did have white count of 15.7 with a left shift BUN was mildly elevated creatinine was normal liver enzymes are normal lactic acid was elevated repeat is normal UA done in the ER was negative yadav PCR and influenza was negative patient did have a chest x-ray suspected pulmonary edema with cardiomegaly patient also have a CT angiogram of the chest no evidence of PE cardiomegaly aortic valve leaflet calcification findings suggestive of pulmonary hypertension patient did receive a dose of Rocephin in the ER has been admitted to the hospital infectious disease was consulted with concern for fever of unknown origin patient at the time of my evaluation is sleepy but arousable with no specifically he knows that he is at [facility] patient denies having any headache patient mention he was complaining of rigors and chills and did have difficulty getting up and around patient also having some difficulty urination but denies any suprapubic or flank pain the patient denies having any nausea no vomiting no abdominal pain no diarrhea Review of Systems Positive point has been mentioned in the HPI rest of the systems are negative Past Medical History Past Medical History: Diabetes Mellitus, Hypertension Additional Past Medical History / Comment(s): irregular heartbeat, varicose veins, 2 herniated disk/degenerative disks, leaky heart valve, "blood clots in the heart" History of Any Multi-Drug Resistant Organisms: None Reported Past Surgical History: Appendectomy, Bowel Resection, Cardiac Valve Replacement, Heart Catheterization, Orthopedic Surgery, Tonsillectomy Additional Past Surgical History / Comment(s): left shoulder surgery, surgery for sleep apnea, deana cataracts, Aortic Valve replacement (bovine) 06/2016 Past Anesthesia/Blood Transfusion Reactions: No Reported Reaction Past Psychological History: Depression Smoking Status: Former smoker Past Alcohol Use History: Occasional Additional Past Alcohol Use History / Comment(s): quit smoking 2014. smoked for 30 yrs, < 1 PPD Past Drug Use History: None Reported - Past Family History Mother Family Medical History: No Reported History Medications and Allergies Home Medications Medication Instructions Recorded Confirmed Type Warfarin [Coumadin] 7.5 mg PO HS@2100 10/15/14 08/25/21 History metFORMIN HCL [Glucophage] 500 mg PO DAILY@0900 10/15/14 08/25/21 History Atorvastatin [Lipitor] 40 mg PO HS@2100 11/23/16 08/25/21 History Cyanocobalamin (Vitamin B-12) 1,000 mcg PO DAILY 12/21/18 08/25/21 History [Vitamin B-12] Acetaminophen Tab [Tylenol Tab] 500 mg PO Q6H PRN 08/25/21 08/25/21 History Metoprolol Tartrate [Lopressor] 50 mg PO BID@0900,1700 08/25/21 08/25/21 History Multivit-Min/FA/Lycopen/Lutein 1 tab PO DAILY@0900 08/25/21 08/25/21 History [Centrum Silver Men Tablet] OLANZapine 10 mg PO HS@209908/25/21 08/25/21 History buPROPion XL [Wellbutrin XL] 300 mg PO DAILY@1700 08/25/21 08/25/21 History lisinopriL [Zestril] 20 mg PO DAILY@0900 08/25/21 08/25/21 History metOLazone 2.5 mg PO MO 08/25/21 08/25/21 History modafiniL [Provigil] 400 mg PO DAILY@0900 08/25/21 08/25/21 History tiZANidine [Zanaflex] 2 mg PO HS@2100 08/25/21 08/25/21 History traMADol HCL 50 mg PO TID PRN 08/25/21 08/25/21 History Allergies Allergy/AdvReac Type Severity Reaction Status Date / Time No Known Allergies Allergy Verified 08/25/21 18:54 Physical Exam Vitals: Vital Signs Temp Pulse Pulse Resp BP BP Pulse Ox 08/26/21 07:33 97.9 F 60 24 144/85 98 08/26/21 02:00 97.6 F 60 17 109/69 99 08/25/21 23:10 97.7 F 70 18 111/70 98 08/25/21 19:52 97.7 F 61 16 138/96 97 08/25/21 18:31 98.2 F 60 18 102/65 98 08/25/21 14:34 101.2 F H 85 24 97/65 96 Intake and Output 08/25/21 08/26/21 08/26/21 22:59 06:59 14:59 Output Total 675 Balance -675 Output: Urine 675 Straight 675 Other: # Voids 0 Weight 149.685 kg GENERAL DESCRIPTION: An elderly male lying in bed, no distress. No tachypnea or accessory muscle of respiration use. HEENT: Shows Pallor , no scleral icterus. Oral mucous membrane is dry. No pharyngeal erythema or thrush NECK: Trachea central, no thyromegaly. LUNGS: Unlabored breathing. Decreased breath sound the bases. No wheeze or crackle. HEART: S1, S2, regular rate and rhythm. No loud murmur ABDOMEN: Soft, no tenderness , guarding or rigidity, no organomegaly EXTREMITIES: No edema of feet. SKIN: No rash, no masses palpable. NEUROLOGICAL: The patient is sleepy and lethargic but arousable, no neck rigidity Results CBC & Chem 7: 08/25/21 15:30 08/25/21 15:30 Labs: Abnormal Lab Results - Last 24 Hours (Table) 08/25/21 08/25/21 08/25/21 Range/Units 14:43 15:20 15:30 WBC 15.7 H (3.8-10.6) k/uL RBC 4.28 L (4.30-5.90) m/uL MCV 100.3 H (80.0-100.0) fL Neutrophils # 14.2 H (1.3-7.7) k/uL Lymphocytes # 0.4 L (1.0-4.8) k/uL PT (9.0-12.0) sec INR (<1.2) APTT (22.0-30.0) sec BUN (9-20) mg/dL Glucose (74-99) mg/dL POC Glucose (mg/dL) 163 H (75-99) mg/dL Plasma Lactic Acid Epi (0.7-2.0) mmol/L Procalcitonin (0.02-0.09) ng/mL Urine Protein 1+ H (Negative) Urine Ketones Trace H (Negative) Hyaline Casts 3 H (0-2) /lpf Urine Mucus Rare H (None) /hpf 08/25/21 08/25/21 08/25/21 Range/Units 15:30 15:30 15:30 WBC (3.8-10.6) k/uL RBC (4.30-5.90) m/uL MCV (80.0-100.0) fL Neutrophils # (1.3-7.7) k/uL Lymphocytes # (1.0-4.8) k/uL PT 20.4 H (9.0-12.0) sec INR 2.0 H (<1.2) APTT 33.8 H (22.0-30.0) sec BUN 29 H (9-20) mg/dL Glucose 137 H (74-99) mg/dL POC Glucose (mg/dL) (75-99) mg/dL Plasma Lactic Acid Epi 2.5 H* (0.7-2.0) mmol/L Procalcitonin (0.02-0.09) ng/mL Urine Protein (Negative) Urine Ketones (Negative) Hyaline Casts (0-2) /lpf Urine Mucus (None) /hpf 08/25/21 08/25/21 08/26/21 Range/Units 15:30 23:56 04:31 WBC (3.8-10.6) k/uL RBC (4.30-5.90) m/uL MCV (80.0-100.0) fL Neutrophils # (1.3-7.7) k/uL Lymphocytes # (1.0-4.8) k/uL PT 21.9 H (9.0-12.0) sec INR 2.06 H (<1.2) APTT (22.0-30.0) sec BUN (9-20) mg/dL Glucose (74-99) mg/dL POC Glucose (mg/dL) 125 H (75-99) mg/dL Plasma Lactic Acid Epi (0.7-2.0) mmol/L Procalcitonin 0.11 H (0.02-0.09) ng/mL Urine Protein (Negative) Urine Ketones (Negative) Hyaline Casts (0-2) /lpf Urine Mucus (None) /hpf 03/24/22 03/24/22 Range/Units 08:32 11:54 WBC (3.8-10.6) k/uL RBC (4.30-5.90) m/uL MCV (80.0-100.0) fL Neutrophils # (1.3-7.7) k/uL Lymphocytes # (1.0-4.8) k/uL PT (9.0-12.0) sec INR (<1.2) APTT (22.0-30.0) sec BUN (9-20) mg/dL Glucose (74-99) mg/dL POC Glucose (mg/dL) 177 H 113 H (75-99) mg/dL Plasma Lactic Acid Epi (0.7-2.0) mmol/L Procalcitonin (0.02-0.09) ng/mL Urine Protein (Negative) Urine Ketones (Negative) Hyaline Casts (0-2) /lpf Urine Mucus (None) /hpf Assessment and Plan (1) Fever of unknown origin Current Visit: Yes Status: Acute Code(s): R50.9 - FEVER, UNSPECIFIED SNOME D Code(s): 5756327 Plan: 1patient presented to hospital with a fever rigors and chills did have some urinary symptoms high clinical suspicious for urinary tract infection though initial UA has been normal questionably lab error as currently no other obvious focus of infection patient is sleepy but arousable denies any headache no neck rigidity lungs were clear to auscultation abdominal soft with no tenderness. 2we will repeat his urine culture. 3we will wait for CT abdominal pelvis to be completed ordered by admitting team. 4we will empirically add Rocephin 2 g daily while waiting for the culture to finalize 5gentle IV fluid We will follow on clinical condition and cultures to further adjust medication if needed Thank you for this consultation we will follow the patient along with you
[2021-08-27 06:15] LABS: INR 2.5 (<1.2); Prothrombin Time 24.8 sec (9.0-12.0)
[2021-08-27 07:05] LABS: Glucose,Whole Blood 101 mg/dL (75-99)
[2021-08-27] MEDS: IBUPROFEN 600 MG TAB PO SCH ×3 (07:11→21:40)
[2021-08-27] MEDS: METOPROLOL TARTRATE 50 MG TAB PO SCH ×2 (07:11→14:29)
[2021-08-27] MEDS: TAMSULOSIN 0.4 MG CAP.ER.24H PO SCH (07:12)
[2021-08-27] MEDS: lisinopriL 20 MG TAB PO SCH (07:12)
[2021-08-27] MEDS: PANTOPRAZOLE 40 MG/10 ML VIAL IVP SCH (08:46)
[2021-08-27 11:05] LABS: Glucose,Whole Blood 119 mg/dL (75-99)
--- NOTE | 2021-08-27 14:08 | P.HPIM ---
History of Present Illness H&P Date: 08/26/21 Chief Complaint: fever, malaise Neo Gaston is a 70 yo M with PMH of CAD, chronic back pain, major depression who presented to the ED complaining of fever, chills and weakness over the past few days He complains of sweats and chills and states he has not been able to move around as much due to weakness. Denies cough, shortness of breath, nausea, vomiting, abdominal pain. He does complain of some decreased urination. No sick contacts. On presentation pt febrile, BP 97/60, WBC 15k, lactic 2.5, Covid negative, procalcitonin 0.11. CXR and CTA no acute process. Review of Systems All systems: negative Constitutional: Reports chills, Reports fever, Reports malaise, Reports sweats Eyes: denies blurred vision, denies pain Ears, nose, mouth and throat: Denies headache, Denies sore throat Cardiovascular: Denies chest pain, Denies shortness of breath Respiratory: Denies cough Gastrointestinal: Denies abdominal pain, Denies diarrhea, Denies nausea, Denies vomiting Musculoskeletal: Denies myalgias Integumentary: Denies pruritus, Denies rash Neurological: Denies numbness, Denies weakness Psychiatric: Denies anxiety, Denies depression Endocrine: Denies fatigue, Denies weight change Past Medical History Past Medical History: Diabetes Mellitus, Hypertension Additional Past Medical History / Comment(s): irregular heartbeat, varicose veins, 2 herniated disk/degenerative disks, leaky heart valve, "blood clots in the heart" History of Any Multi-Drug Resistant Organisms: None Reported Past Surgical History: Appendectomy, Bowel Resection, Cardiac Valve Replacement, Heart Catheterization, Orthopedic Surgery, Tonsillectomy Additional Past Surgical History / Comment(s): left shoulder surgery, surgery for sleep apnea, deana cataracts, Aortic Valve replacement (bovine) 06/2016 Past Anesthesia/Blood Transfusion Reactions: No Reported Reaction Past Psychological History: Depression Smoking Status: Former smoker Past Alcohol Use History: Occasional Additional Past Alcohol Use History / Comment(s): quit smoking 2014. smoked for 30 yrs, < 1 PPD Past Drug Use History: None Reported - Past Family History Mother Family Medical History: No Reported History Medications and Allergies Home Medications Medication Instructions Recorded Confirmed Type Warfarin [Coumadin] 7.5 mg PO HS@2100 10/15/14 08/25/21 History metFORMIN HCL [Glucophage] 500 mg PO DAILY@0900 10/15/14 08/25/21 History Atorvastatin [Lipitor] 40 mg PO HS@2100 11/23/16 08/25/21 History Cyanocobalamin (Vitamin B-12) 1,000 mcg PO DAILY 12/21/18 08/25/21 History [Vitamin B-12] Acetaminophen Tab [Tylenol Tab] 500 mg PO Q6H PRN 08/25/21 08/25/21 History Metoprolol Tartrate [Lopressor] 50 mg PO BID@0900,1700 08/25/21 08/25/21 History Multivit-Min/FA/Lycopen/Lutein 1 tab PO DAILY@0900 08/25/21 08/25/21 History [Centrum Silver Men Tablet] OLANZapine 10 mg PO HS@2100 08/25/21 08/25/21 History buPROPion XL [Wellbutrin XL] 300 mg PO DAILY@1700 08/25/21 08/25/21 History lisinopriL [Zestril] 20 mg PO DAILY@0900 08/25/21 08/25/21 History metOLazone 2.5 mg PO MO 08/25/21 08/25/21 History modafiniL [Provigil] 400 mg PO DAILY@0900 08/25/21 08/25/21 History tiZANidine [Zanaflex] 2 mg PO HS@2100 08/25/21 08/25/21 History traMADol HCL 50 mg PO TID PRN 08/25/21 08/25/21 History Allergies Allergy/AdvReac Type Severity Reaction Status Date / Time No Known Allergies Allergy Verified 08/25/21 18:54 Physical Exam Vitals: Vital Signs Temp Pulse Resp BP Pulse Ox 08/26/21 21:28 97 08/26/21 19:59 16 08/26/21 19:58 98.3 F 61 16 104/67 96 08/26/21 14:00 97.6 F 95 20 112/70 99 08/26/21 07:33 97.9 F 60 24 144/85 98 08/26/21 02:00 97.6 F 60 17 109/69 99 08/25/21 23:10 97.7 F 70 18 111/70 98 Intake and Output 03/24/22 03/24/22 03/24/22 06:59 14:59 22:59 Output Total 850 175 Balance -850 -175 Output: Urine 850 175 Straight 675 Other: # Voids 0 Weight 149.685 kg General: well nourished, obese, NAD. Vitals reviewed Eyes: PERRL, EOMI, conjunctiva normal HENT: normocephalic, mucus membranes moist Neck: supple, no JVD Lungs: normal respiratory effort, no wheezes or rales CV: Regular rate and rhythm, no murmur. Peripheral pulses 2+ Abdomen: soft, nondistended, no organomegaly. Suprapubic tenderness Lymph: no cervical or axillary LAD Skin: warm and dry. Neuro: A&Ox3, normal mood and affect Results CBC & Chem 7: 08/25/21 15:30 08/25/21 15:30 Labs: Abnormal Lab Results - Last 24 Hours (Table) 08/25/21 08/25/21 08/26/21 Range/Units 15:30 23:56 04:31 PT 21.9 H (9.9-11.9) sec INR 2.06 H (0.90-1.11) POC Glucose (mg/dL) 125 H (75-99) mg/dL Procalcitonin 0.11 H (0.02-0.09) ng/mL Urine Protein (Negative) Urine Blood (Negative) Ur Leukocyte Esterase (Negative) Urine RBC (0-5) /hpf Urine WBC (0-5) /hpf Urine WBC Clumps (None) /hpf Urine Mucus (None) /hpf 08/26/21 08/26/21 08/26/21 Range/Units 04:31 08:32 11:54 PT (9.9-11.9) sec INR (0.90-1.11) POC Glucose (mg/dL) 177 H 113 H (75-99) mg/dL Procalcitonin 0.16 H (0.02-0.09) ng/mL Urine Protein (Negative) Urine Blood (Negative) Ur Leukocyte Esterase (Negative) Urine RBC (0-5) /hpf Urine WBC (0-5) /hpf Urine WBC Clumps (None) /hpf Urine Mucus (None) /hpf 08/26/21 08/26/21 08/26/21 Range/Units 12:35 16:56 21:17 PT (9.9-11.9) sec INR (0.90-1.11) POC Glucose (mg/dL) 109 H 134 H (75-99) mg/dL Procalcitonin (0.02-0.09) ng/mL Urine Protein Trace H (Negative) Urine Blood Small H (Negative) Ur Leukocyte Esterase Large H (Negative) Urine RBC 6 H (0-5) /hpf Urine WBC 61 H (0-5) /hpf Urine WBC Clumps Many H (None) /hpf Urine Mucus Rare H (None) /hpf Microbiology - Last 24 Hours (Table) 08/26/21 12:35 Urine Culture - Preliminary Urine,Clean Catch 08/25/21 15:20 Blood Culture - Preliminary Blood No Growth after 24 hours 08/25/21 15:05 Blood Culture - Preliminary Blood No Growth after 24 hours Thrombosis Risk Factor Assmnt - Choose All That Apply Any of the Below Risk Factors Present?: Yes Each Factor Represents 1 point: Obesity (BMI >25), Varicose veins Each Risk Factor Represents 2 Points: Age 61-74 years Thrombosis Risk Factor Assessment Total Risk Factor Score: 4 Thrombosis Risk Factor Assessment Level: Moderate Risk Assessment and Plan (1) Acute bacterial prostatitis Current Visit: Yes Status: Acute Code(s): N41.0 - ACUTE PROSTATITIS SNOMED Code(s): 18647555 (2) COPD (chronic obstructive pulmonary disease) Current Visit: No Status: Acute Code(s): J44.9 - CHRONIC OBSTRUCTIVE PULMONARY DISEASE, UNSPECIFIED SNOMED Code(s): 79066571 (3) Chronic atrial fibrillation Current Visit: No Status: Chronic Code(s): I48.2 - CHRONIC ATRIAL FIBRILLATION * DO NOT USE * SNOMED Code(s): 057573854 (4) S/P AVR (aortic valve replacement) Current Visit: No Status: Chronic Code(s): Z95.2 - PRESENCE OF PROSTHETIC HEART VALVE SNOMED Code(s): 4222923504572 Plan: 1. Sepsis secondary to suspected prostatitis. CT abd/pelvis wo contrast. Consult ID. Continue with rocephin. Urine culture, blood cultures. Start flomax. Follow labs 2. Chronic AF. continue metoprolol, coumadin with pharmacy to dose 3. Major depression. Continue zyprexa, wellbutrin 4. HTN. Continue lisinopril
[2021-08-27] MEDS: buPROPion XL 300 MG TAB.ER.24H PO SCH (16:09)
[2021-08-27 17:01] LABS: Glucose,Whole Blood 118 mg/dL (75-99)
[2021-08-27 20:29] LABS: Glucose,Whole Blood 119 mg/dL (75-99)
[2021-08-27] MEDS: OLANZapine 10 MG TAB PO SCH (21:40)
[2021-08-27] MEDS: ACETAMINOPHEN TAB 325 MG TAB PO PRN (21:40)
[2021-08-27] MEDS: traMADol 50 MG TAB PO PRN (21:40)
[2021-08-27] MEDS: tiZANidine 4 MG TAB PO SCH (21:40)
[2021-08-27] MEDS: ATORVASTATIN 40 MG TAB PO SCH (21:40)
[2021-08-27] MEDS: WARFARIN 3 MG TAB PO SCH (21:41)
--- NOTE | 2021-08-27 22:17 | P.PN ---
Subjective Progress Note Date: 08/27/21 Principal diagnosis: Fever Patient is a 70-year-old male presenting to the hospital with fever and weakness and mental status changes has been diagnosed with a urinary tract infection. On today's evaluation that is 08/27/2021, the patient denies having any fever or chills, the patient is more awake and alert, and currently denies having any headache no chest pain shortness of breath or cough no abdominal pain and no diarrhea Objective - Vital Signs Vital signs: Vital Signs Temp 98.4 F 08/27/21 07:56 Pulse 60 08/27/21 07:56 Resp 19 08/27/21 07:56 BP 92/52 08/27/21 07:56 Pulse Ox 96 08/27/21 07:56 Intake & Output 08/26/21 08/27/21 08/27/21 18:59 06:59 18:59 Output Total 1025 600 Balance -1025 -600 Output: Urine 1025 600 Straight 675 - Exam GENERAL DESCRIPTION: An elderly male lying in bed in no distress RESPIRATORY SYSTEM: Unlabored breathing , decreased breath sounds at bases HEART: S1 S2 regular rate and rhythm , ABDOMEN: Soft , no tenderness EXTREMITIES: No edema feet - Labs CBC & Chem 7: 08/25/21 15:30 08/25/21 15:30 Labs: Abnormal Lab Results - Last 24 Hours (Table) 08/26/21 08/26/21 08/26/21 Range/Units 04:31 11:54 12:35 PT (9.0-12.0) sec INR (<1.2) POC Glucose (mg/dL) 113 H (75-99) mg/dL Procalcitonin 0.16 H (0.02-0.09) ng/mL Urine Protein Trace H (Negative) Urine Blood Small H (Negative) Ur Leukocyte Esterase Large H (Negative) Urine RBC 6 H (0-5) /hpf Urine WBC 61 H (0-5) /hpf Urine WBC Clumps Many H (None) /hpf Urine Mucus Rare H (None) /hpf 08/26/21 08/26/21 08/27/21 Range/Units 16:56 21:17 05:55 PT 24.8 H (9.0-12.0) sec INR 2.5 H (<1.2) POC Glucose (mg/dL) 109 H 134 H (75-99) mg/dL Procalcitonin (0.02-0.09) ng/mL Urine Protein (Negative) Urine Blood (Negative) Ur Leukocyte Esterase (Negative) Urine RBC (0-5) /hpf Urine WBC (0-5) /hpf Urine WBC Clumps (None) /hpf Urine Mucus (None) /hpf 08/27/21 08/27/21 Range/Units 07:04 11:04 PT (9.0-12.0) sec INR (<1.2) POC Glucose (mg/dL) 101 H 119 H (75-99) mg/dL Procalcitonin (0.02-0.09) ng/mL Urine Protein (Negative) Urine Blood (Negative) Ur Leukocyte Esterase (Negative) Urine RBC (0-5) /hpf Urine WBC (0-5) /hpf Urine WBC Clumps (None) /hpf Urine Mucus (None) /hpf Microbiology - Last 24 Hours (Table) 08/26/21 12:35 Urine Culture - Preliminary Urine,Clean Catch 08/25/21 15:20 Blood Culture - Preliminary Blood No Growth after 24 hours 08/25/21 15:05 Blood Culture - Preliminary Blood No Growth after 24 hours Assessment and Plan (1) Fever of unknown origin Current Visit: Yes Status: Acute Code(s): R50.9 - FEVER, UNSPECIFIED SNOMED Code(s): 1121556 Plan: 1patient presented to hospital with a fever rigors and chills did have some urinary symptoms high clinical suspicious for urinary tract infection though initial UA has been normal questionably lab error as currently no other obvious focus of infection patient repeat UA has been positive CT abdominal pelvis did not show any acute abnormality 2patient fever has responded to Rocephin to continue while waiting for the cultures to finalize Time with Patient: Less than 30
[2021-08-28 04:44] LABS: INR 2.6 (<1.2); Prothrombin Time 25.5 sec (9.0-12.0)
[2021-08-28 06:54] LABS: Glucose,Whole Blood 112 mg/dL (75-99)
[2021-08-28] MEDS: lisinopriL 20 MG TAB PO SCH (08:10)
[2021-08-28] MEDS: PANTOPRAZOLE 40 MG TABLET PO SCH (08:10)
[2021-08-28] MEDS: TAMSULOSIN 0.4 MG CAP.ER.24H PO SCH (08:10)
[2021-08-28] MEDS: METOPROLOL TARTRATE 50 MG TAB PO SCH ×2 (08:10→17:31)
[2021-08-28] MEDS: IBUPROFEN 600 MG TAB PO SCH ×3 (08:11→20:42)
[2021-08-28 11:36] LABS: Glucose,Whole Blood 137 mg/dL (75-99)
[2021-08-28 16:42] LABS: Glucose,Whole Blood 153 mg/dL (75-99)
[2021-08-28] MEDS: buPROPion XL 300 MG TAB.ER.24H PO SCH (16:53)
[2021-08-28] MEDS: WARFARIN 3 MG TAB PO SCH (20:41)
[2021-08-28] MEDS: OLANZapine 10 MG TAB PO SCH (20:42)
[2021-08-28] MEDS: tiZANidine 4 MG TAB PO SCH (20:42)
[2021-08-28] MEDS: ATORVASTATIN 40 MG TAB PO SCH (20:42)
[2021-08-28 21:29] LABS: Glucose,Whole Blood 99 mg/dL (75-99)
--- NOTE | 2021-08-28 22:25 | P.PN ---
Subjective Progress Note Date: 08/28/21 Principal diagnosis: Fever Patient is a 70-year-old male presenting to the hospital with fever and weakness and mental status changes has been diagnosed with a urinary tract infection. On today's evaluation that is 08/28/2021, the patient remains to be afebrile, the patient denies having any headache no chest pain shortness of breath or cough no abdominal pain and no diarrhea Objective - Vital Signs Vital signs: Vital Signs Temp 97.0 F L 08/28/21 08:00 Pulse 62 08/28/21 08:00 Resp 22 08/28/21 08:00 BP 128/76 08/28/21 08:00 Pulse Ox 94 L 08/28/21 08:00 Intake & Output 08/27/21 08/28/21 08/28/21 18:59 06:59 18:59 Intake Total 50 Output Total 100 300 Balance -50 -300 Intake: Intake, IV Titration 50 Amount cefTRIAXone 2 gm In 50 Sodium Chloride 0.9% 50 ml @ 100 mls/hr IVPB Q24HR [facility] Rx#:[id number] Output: Urine 100 300 Other: # Voids 2 - Exam GENERAL DESCRIPTION: An elderly male lying in bed in no distress RESPIRATORY SYSTEM: Unlabored breathing , decreased breath sounds at bases HEART: S1 S2 regular rate and rhythm , ABDOMEN: Soft , no tenderness EXTREMITIES: No edema feet - Labs CBC & Chem 7: 08/25/21 15:30 08/25/21 15:30 Labs: Abnormal Lab Results - Last 24 Hours (Table) 08/27/21 08/27/21 08/28/21 Range/Units 16:59 20:28 03:58 PT 25.5 H (9.0-12.0) sec INR 2.6 H (<1.2) POC Glucose (mg/dL) 118 H 119 H (75-99) mg/dL 08/28/21 08/28/21 Range/Units 06:52 11:35 PT (9.0-12.0) sec INR (<1.2) POC Glucose (mg/dL) 112 H 137 H (75-99) mg/dL Microbiology - Last 24 Hours (Table) 08/25/21 15:20 Blood Culture - Preliminary Blood No Growth after 48 hours 08/25/21 15:05 Blood Culture - Preliminary Blood No Growth after 48 hours 08/26/21 12:35 Urine Culture - Final Urine,Clean Catch Assessment and Plan (1) Fever of unknown origin Current Visit: Yes Status: Acute Code(s): R50.9 - FEVER, UNSPECIFIED SNOMED Code(s): 6385041 Plan: 1patient presented to hospital with a fever rigors and chills did have some urinary symptoms high clinical suspicious for urinary tract infection though initial UA has been normal questionably lab error as currently no other obvious focus of infection patient repeat UA has been positive CT abdominal pelvis did not show any acute abnormality 2patient seemed to have shown clinical improvement and fever has responded to Rocephin which will be continued with the plan to finish therapy with oral antibiotics Time with Patient: Less than 30
--- NOTE | 2021-08-28 22:40 | P.PN ---
Subjective This is a pleasant 70 years old male with past medical history of severe bradycardia status post pacemaker, atrial fibrillation on Coumadin, aortic valve replacement, diabetes mellitus, hypertension. Presents with fever of unknown origin suspected secondary to UTI as patient tolerated May he has increased frequency of urination but no dysuria however urine culture came back negative. Also there is suspicion of early infiltrate on CT of the abdomen and pelvis. Patient has no dyspnea or chest pain. He has some coughing. Other than that he has no diarrhea, no rash or evidence of cellulitis. No other complaints. No more fevers since admission and he is currently On ceftriaxone with infectious disease team on the case INR is 2.6 Check labs tomorrow Objective - Vital Signs Vital signs: Vital Signs Temp 97.0 F L 08/28/21 08:00 Pulse 62 08/28/21 08:00 Resp 22 08/28/21 08:00 BP 128/76 08/28/21 08:00 Pulse Ox 94 L 08/28/21 08:00 Intake & Output 08/27/21 08/28/21 08/28/21 18:59 06:59 18:59 Intake Total 50 Output Total 100 300 Balance -50 -300 Intake: Intake, IV Titration 50 Amount cefTRIAXone 2 gm In 50 Sodium Chloride 0.9% 50 ml @ 100 mls/hr IVPB Q24HR [facility] Rx#:[id number] Output: Urine 100 300 Other: # Voids 2 - Exam -GENERAL: The patient is alert and oriented x3, not in any acute distress. Obese HEENT: Pupils are round and equally reacting to light. EOMI. No scleral icterus. No conjunctival pallor. Normocephalic, atraumatic. No pharyngeal erythema. No thyromegaly. CARDIOVASCULAR: S1 and S2 present. No murmurs, rubs, or gallops. PULMONARY: Chest is clear to auscultation, no wheezing or crackles. ABDOMEN: Soft, nontender, nondistended, normoactive bowel sounds. No palpable organomegaly. MUSCULOSKELETAL: No joint swelling or deformity. EXTREMITIES: No cyanosis, clubbing, or pedal edema. NEUROLOGICAL: Gross neurological examination did not reveal any focal deficits. SKIN: No rashes. no petechiae. - Labs CBC & Chem 7: 08/25/21 15:30 08/25/21 15:30 Labs: Abnormal Lab Results - Last 24 Hours (Table) 08/27/21 08/27/21 08/28/21 Range/Units 16:59 20:28 03:58 PT 25.5 H (9.0-12.0) sec INR 2.6 H (<1.2) POC Glucose (mg/dL) 118 H 119 H (75-99) mg/dL 08/28/21 08/28/21 Range/Units 06:52 11:35 PT (9.0-12.0) sec INR (<1.2) POC Glucose (mg/dL) 112 H 137 H (75-99) mg/dL Microbiology - Last 24 Hours (Table) 08/25/21 15:20 Blood Culture - Preliminary Blood No Growth after 48 hours 08/25/21 15:05 Blood Culture - Preliminary Blood No Growth after 48 hours 08/26/21 12:35 Urine Culture - Final Urine,Clean Catch Assessment and Plan Assessment: Fever of unknown origin, suspected secondary to UTI versus early pneumonia, responded to antibiotic Diabetes mellitus Hypertension History of A. fib on Coumadin History of severe bradycardia status post pacemaker History of aortic valve replacement Plan: This is a pleasant 70 years old male who presents with fever, possible UTI the S pneumonia Continue with ceftriaxone, and which is him on the case Check labs tomorrow Labs and medication were reviewed.. Continue same treatment. Continue with symptomatic treatment. Resume home medication. Monitor lytes and vitals. DVT and GI prophylaxis. Further recommendations as per clinical course of the patient DVT prophylaxis: Warfarin GI Prophylaxis: Ppi
[2021-08-29 06:51] LABS: Glucose,Whole Blood 136 mg/dL (75-99)
[2021-08-29] MEDS: PANTOPRAZOLE 40 MG TABLET PO SCH (07:13)
[2021-08-29] MEDS: IBUPROFEN 600 MG TAB PO SCH ×3 (07:13→21:30)
[2021-08-29] MEDS: TAMSULOSIN 0.4 MG CAP.ER.24H PO SCH (07:13)
[2021-08-29] MEDS: lisinopriL 20 MG TAB PO SCH (07:13)
[2021-08-29] MEDS: METOPROLOL TARTRATE 50 MG TAB PO SCH ×2 (07:14→16:54)
[2021-08-29 09:19] LABS: INR 3.5 (<1.2); Prothrombin Time 34.9 sec (9.0-12.0)
[2021-08-29 11:52] LABS: Glucose,Whole Blood 136 mg/dL (75-99)
[2021-08-29 11:54] LABS: African American GFR (CKD) 104.9 (60.0-200.0); Anion Gap 13.8 mmol/L (10.00-18.00); BUN/Creat Ratio 25.79 Ratio (12.00-20.00); Blood Urea Nitrogen 20.3 mg/dL (9.0-27.0); Calcium 8.8 mg/dL (8.7-10.3); Carbon Dioxide 26.9 mmol/L (20.0-27.5); Non-African American GFR(CKD) 90.5 (60.0-200.0); Potassium 4.2 mmol/L (3.5-5.5)
[2021-08-29 11:58] LABS: Basophils # (A) 0.04 X 10*3/uL (0.00-0.10); Basophils % (A) 0.5 %; Eosinophils # (A) 0.34 X 10*3/uL (0.04-0.35); Eosinophils % (A) 4.5 %; HCT 41.8 % (39.6-50.0); HGB 12.3 g/dL (13.0-17.0); Immature Grans, Automated 0.1 %; Lymphocytes # (A) 1.63 X 10*3/uL (0.90-5.00); Lymphocytes % (A) 21.8 %; MCH 30.2 pg (27.0-32.0); MCHC 29.4 g/dL (32.0-37.0); MCV 102.7 fL (80.0-97.0); Mean Platelet Volume 9.4 fL (9.5-12.2); Monocytes # (A) 0.93 X 10*3/uL (0.20-1.00); Monocytes % (A) 12.4 %; NRBC Per 100 WBC 0 /100 WBCS (0.0-0.0); Neutrophils # (A) 4.53 X 10*3/uL (1.80-7.70); Neutrophils % (A) 60.7 %; Platelet Count 245 X 10*3/uL (140-440); RBC 4.07 X 10*6/uL (4.40-5.60); RDW 13.4 % (11.5-14.5); WBC 7.48 X 10*3/uL (4.50-10.00)
[2021-08-29 16:40] LABS: Glucose,Whole Blood 145 mg/dL (75-99)
[2021-08-29] MEDS: buPROPion XL 300 MG TAB.ER.24H PO SCH (16:54)
[2021-08-29] MEDS ORDERED: WARFARIN 0.5 MG TAB PO ONE (18:00)
--- NOTE | 2021-08-29 19:10 | P.PN ---
Subjective This is a pleasant 70 years old male with past medical history of severe bradycardia status post pacemaker, atrial fibrillation on Coumadin, aortic valve replacement, diabetes mellitus, hypertension. Presents with fever of unknown origin suspected secondary to UTI as patient tolerated May he has increased frequency of urination but no dysuria however urine culture came back negative. Also there is suspicion of early infiltrate on CT of the abdomen and pelvis. Patient has no dyspnea or chest pain. He has some coughing. Other than that he has no diarrhea, no rash or evidence of cellulitis. No other complaints. No more fevers since admission and he is currently On ceftriaxone with infectious disease team on the case INR is 2.6 Check labs tomorrow 08/29/2021 Patient is clinically improving His pro-calcitonin is normal when repeated today at 0.06. He remains on ceftriaxone with plan to finish therapy with oral antibiotics per ID team INR 3.5, hold Coumadin today, check INR tomorrow Objective - Vital Signs Vital signs: Vital Signs Temp 97.4 F L 08/29/21 07:56 Pulse 62 08/29/21 07:56 Resp 18 08/29/21 07:56 BP 133/73 08/29/21 07:56 Pulse Ox 100 08/29/21 07:56 Intake & Output 08/28/21 08/29/21 08/29/21 18:59 06:59 18:59 Output Total 275 Balance -275 Output: Urine 275 Other: Voiding Method Toilet Urinal Bedside Commode Urinal # Voids 3 4 # Bowel Movements 1 - Exam -GENERAL: The patient is alert and oriented x3, not in any acute distress. Obese HEENT: Pupils are round and equally reacting to light. EOMI. No scleral icterus. No conjunctival pallor. Normocephalic, atraumatic. No pharyngeal erythema. No thyromegaly. CARDIOVASCULAR: S1 and S2 present. No murmurs, rubs, or gallops. PULMONARY: Chest is clear to auscultation, no wheezing or crackles. ABDOMEN: Soft, nontender, nondistended, normoactive bowel sounds. No palpable organomegaly. MUSCULOSKELETAL: No joint swelling or deformity. EXTREMITIES: No cyanosis, clubbing, or pedal edema. NEUROLOGICAL: Gross neurological examination did not reveal any focal deficits. SKIN: No rashes. no petechiae. - Labs CBC & Chem 7: 08/29/21 08:09 08/29/21 08:09 Labs: Abnormal Lab Results - Last 24 Hours (Table) 08/28/21 08/29/21 08/29/21 Range/Units 16:40 06:49 08:09 RBC (4.40-5.60) X 10*6/uL Hgb (13.0-17.0) g/dL MCV (80.0-97.0) fL MCHC (32.0-37.0) g/dL MPV (9.5-12.2) fL PT 34.9 H (9.0-12.0) sec INR 3.5 H (<1.2) BUN/Creatinine Ratio (12.00-20.00) Ratio POC Glucose (mg/dL) 153 H 136 H (75-99) mg/dL 08/29/21 08/29/21 08/29/21 Range/Units 08:09 08:09 11:50 RBC 4.07 L (4.40-5.60) X 10*6/uL Hgb 12.3 L (13.0-17.0) g/dL MCV 102.7 H (80.0-97.0) fL MCHC 29.4 L (32.0-37.0) g/dL MPV 9.4 L (9.5-12.2) fL PT (9.0-12.0) sec INR (<1.2) BUN/Creatinine Ratio 25.79 H (12.00-20.00) Ratio POC Glucose (mg/dL) 136 H (75-99) mg/dL Microbiology - Last 24 Hours (Table) 08/25/21 15:20 Blood Culture - Preliminary Blood No Growth after 72 hours 08/25/21 15:05 Blood Culture - Preliminary Blood No Growth after 72 hours Assessment and Plan Assessment: Fever of unknown origin, suspected secondary to UTI versus early pneumonia, responded to antibiotic Diabetes mellitus Hypertension History of A. fib on Coumadin History of severe bradycardia status post pacemaker History of aortic valve replacement Plan: This is a pleasant 70 years old male who presents with fever, possible UTI the S pneumonia Continue with ceftriaxone, and which is him on the case Check labs tomorrow Labs and medication were reviewed.. Continue same treatment. Continue with symptomatic treatment. Resume home medication. Monitor lytes and vitals. DVT and GI prophylaxis. Further recommendations as per clinical course of the patient DVT prophylaxis: Warfarin GI Prophylaxis: Ppi
[2021-08-29 20:18] LABS: Glucose,Whole Blood 91 mg/dL (75-99)
[2021-08-29] MEDS: ATORVASTATIN 40 MG TAB PO SCH (21:30)
[2021-08-29] MEDS: OLANZapine 10 MG TAB PO SCH (21:31)
[2021-08-29] MEDS: tiZANidine 4 MG TAB PO SCH (21:31)
--- NOTE | 2021-08-29 23:11 | P.PN ---
Subjective Progress Note Date: 08/29/21 Principal diagnosis: Fever Patient is a 70-year-old male presenting to the hospital with fever and weakness and mental status changes has been diagnosed with a urinary tract infection. On today's evaluation that is 08/29/2021, the patient denies any fever or any chills, the patient denies having any headache the patient denies chest pain shortness of breath or cough no abdominal pain and no diarrhea Objective - Vital Signs Vital signs: Vital Signs Temp 97.4 F L 08/29/21 14:59 Pulse 60 08/29/21 14:59 Resp 18 08/29/21 14:59 BP 101/67 08/29/21 14:59 Pulse Ox 99 08/29/21 14:59 Intake & Output 08/28/21 08/29/21 08/29/21 18:59 06:59 18:59 Output Total 275 Balance -275 Output: Urine 275 Other: Voiding Method Toilet Urinal Bedside Commode Urinal # Voids 3 4 # Bowel Movements 1 - Exam GENERAL DESCRIPTION: An elderly male lying in bed in no distress RESPIRATORY SYSTEM: Unlabored breathing , decreased breath sounds at bases HEART: S1 S2 regular rate and rhythm , ABDOMEN: Soft , no tenderness EXTREMITIES: No edema feet - Labs CBC & Chem 7: 08/29/21 08:09 08/29/21 08:09 Labs: Abnormal Lab Results - Last 24 Hours (Table) 08/28/21 08/29/21 08/29/21 Range/Units 16:40 06:49 08:09 RBC (4.40-5.60) X 10*6/uL Hgb (13.0-17.0) g/dL MCV (80.0-97.0) fL MCHC (32.0-37.0) g/dL MPV (9.5-12.2) fL PT 34.9 H (9.0-12.0) sec INR 3.5 H (<1.2) BUN/Creatinine Ratio (12.00-20.00) Ratio POC Glucose (mg/dL) 153 H 136 H (75-99) mg/dL 08/29/21 08/29/21 08/29/21 Range/Units 08:09 08:09 11:50 RBC 4.07 L (4.40-5.60) X 10*6/uL Hgb 12.3 L (13.0-17.0) g/dL MCV 102.7 H (80.0-97.0) fL MCHC 29.4 L (32.0-37.0) g/dL MPV 9.4 L (9.5-12.2) fL PT (9.0-12.0) sec INR (<1.2) BUN/Creatinine Ratio 25.79 H (12.00-20.00) Ratio POC Glucose (mg/dL) 136 H (75-99) mg/dL Microbiology - Last 24 Hours (Table) 08/25/21 15:20 Blood Culture - Preliminary Blood No Growth after 72 hours 08/25/21 15:05 Blood Culture - Preliminary Blood No Growth after 72 hours Assessment and Plan (1) Fever of unknown origin Current Visit: Yes Status: Acute Code(s): R50.9 - FEVER, UNSPECIFIED SNOMED Code(s): 0530948 Plan: 1patient presented to hospital with a fever rigors and chills did have some urinary symptoms high clinical suspicious for urinary tract infection though initial UA has been normal questionably lab error as currently no other obvious focus of infection patient repeat UA has been positive CT abdominal pelvis did not show any acute abnormality 2patient has clinically responded to Rocephin which will be continued while inpatient with the plan to finish therapy with oral Ceftin Time with Patient: Less than 30
[2021-08-30 04:10] LABS: INR 2.8 (<1.2); Prothrombin Time 28.4 sec (9.0-12.0)
[2021-08-30 06:54] LABS: Glucose,Whole Blood 92 mg/dL (75-99)
[2021-08-30 07:58] VITALS: BP 115/76; PULSE 64; RESP 18; TEMP 97.4
[2021-08-30] MEDS: IBUPROFEN 600 MG TAB PO SCH (09:52)
[2021-08-30] MEDS: TAMSULOSIN 0.4 MG CAP.ER.24H PO SCH (09:53)
[2021-08-30] MEDS: PANTOPRAZOLE 40 MG TABLET PO SCH (09:53)
[2021-08-30] MEDS: METOPROLOL TARTRATE 50 MG TAB PO SCH (09:53)
[2021-08-30] MEDS: lisinopriL 20 MG TAB PO SCH (09:53)
[2021-08-30 11:37] LABS: Glucose,Whole Blood 132 mg/dL (75-99)
--- NOTE | 2021-08-30 13:35 | P.DS ---
Providers Date of admission: 08/25/21 18:47 Expected date of discharge: 08/30/21 Attending physician: Cory Goodman MD Consults: 08/25/21 18:47 Consult Physician Urgent Consulting Provider: Juice Chery Consult Reason/Comments: Fever of unknown origin Do you want consulting provider notified?: Yes Primary care physician: Cory Goodman MD Hospital Course: Final Diagnoses: Fever of unknown origin, suspected secondary to UTI as per ID Diabetes mellitus Hypertension History of A. fib on Coumadin History of severe bradycardia status post pacemaker History of aortic valve replacement Hospital course: This a 70-year-old gentleman admitted with fever of unknown origin, urinary symptoms, suspect secondary to UTI. Evaluated by a infectious disease, workup completed. Responded well to Rocephin. Patient will be discharged home today in a stable condition with guarded prognosis. Coumadin on hold, INR decreased down to 2.8 from 3.5 ,will resume home dose 08/31. Patient will be discharged on 3 more days of oral Ceftin to complete antibiotic course. The impression and plan of care has been dictated as directed. : I performed a history and examination of this patient, discussed the same with the dictator. I agree with the dictator's note ,documented as a scribe. Any additional findings or plans will be noted. Patient Condition at Discharge: Stable Plan - Discharge Summary Discharge Rx Participant: Yes New Discharge Prescriptions: New Tamsulosin [Flomax] 0.4 mg PO DAILY #30 cap Cefuroxime Axetil [Ceftin] 500 mg PO BID 3 Days #6 tab Continue metFORMIN HCL [Glucophage] 500 mg PO DAILY@0900 Atorvastatin [Lipitor] 40 mg PO HS@2100 Cyanocobalamin (Vitamin B-12) [Vitamin B-12] 1,000 mcg PO DAILY OLANZapine 10 mg PO HS@2100 modafiniL [Provigil] 400 mg PO DAILY@0900 metOLazone 2.5 mg PO MO tiZANidine [Zanaflex] 2 mg PO HS@2100 Multivit-Min/FA/Lycopen/Lutein [Centrum Silver Men Tablet] 1 tab PO DAILY@0900 Metoprolol Tartrate [Lopressor] 50 mg PO BID@0900,1700 lisinopriL [Zestril] 20 mg PO DAILY@0900 Acetaminophen Tab [Tylenol] 500 mg PO Q6H PRN PRN Reason: Pain Or Fever > 100.5 buPROPion XL [Wellbutrin XL] 300 mg PO DAILY@1700 traMADol HCL 50 mg PO TID PRN PRN Reason: Pain Warfarin [Coumadin] 7.5 mg PO HS@2100 #0 Discharge Medication List metFORMIN HCL [Glucophage] 500 mg PO DAILY@0900 10/15/14 [History] Atorvastatin [Lipitor] 40 mg PO HS@209911/23/16 [History] Cyanocobalamin (Vitamin B-12) [Vitamin B-12] 1,000 mcg PO DAILY 12/21/18 [History] Acetaminophen Tab [Tylenol] 500 mg PO Q6H PRN 08/25/21 [History] Metoprolol Tartrate [Lopressor] 50 mg PO BID@0900,1700 08/25/21 [History] Multivit-Min/FA/Lycopen/Lutein [Centrum Silver Men Tablet] 1 tab PO DAILY@0900 08/25/21 [History] OLANZapine 10 mg PO HS@209908/25/21 [History] buPROPion XL [Wellbutrin XL] 300 mg PO DAILY@1700 08/25/21 [History] lisinopriL [Zestril] 20 mg PO DAILY@0900 08/25/21 [History] metOLazone 2.5 mg PO MO 08/25/21 [History] modafiniL [Provigil] 400 mg PO DAILY@0900 08/25/21 [History] tiZANidine [Zanaflex] 2 mg PO HS@209908/25/21 [History] traMADol HCL 50 mg PO TID PRN 08/25/21 [History] Cefuroxime Axetil [Ceftin] 500 mg PO BID 3 Days #6 tab 08/30/21 [Rx] Tamsulosin [Flomax] 0.4 mg PO DAILY #30 cap 08/30/21 [Rx] Warfarin [Coumadin] 7.5 mg PO HS@2100 #0 08/30/21 [Rx] Follow up Appointment(s)/Referral(s): Cory Goodman MD [Primary Care Provider] - 09/01/21 4:30 pm (At [facility]) Ambulatory/Diagnostic Orders: Complete Blood Count w/diff [LAB.AMB] Time Frame: 09/01/21, Location: None Selected Patient Instructions/Handouts: Urinary Tract Infection in Men (DC)
[2021-08-30] MEDS ORDERED: WARFARIN 3 MG TAB PO SCH (21:00)
== END 2021-08-30 14:18 | disposition home or self-care (01) | DRG 689 ==
LOC: EC 14:24 → 4SSUR 18:47
PROVIDERS: ADMIT Family Medicine; ATTEND Family Medicine
DX: N39.0 Urinary tract infection, site not specified (principal); J18.9 Pneumonia, unspecified organism; I48.20 Chronic atrial fibrillation, unspecified; Z20.822 Contact with and (suspected) exposure to COVID-19; N41.0 Acute prostatitis; R41.82 Altered mental status, unspecified; R50.9 Fever, unspecified; R35.0 Frequency of micturition; E11.9 Type 2 diabetes mellitus without complications; I27.20 Pulmonary hypertension, unspecified; F32.A Depression, unspecified; I10 Essential (primary) hypertension; I25.10 Atherosclerotic heart disease of native coronary artery without angina pectoris; J44.9 Chronic obstructive pulmonary disease, unspecified; I49.9 Cardiac arrhythmia, unspecified; I83.90 Asymptomatic varicose veins of unspecified lower extremity; G89.29 Other chronic pain; M54.9 Dorsalgia, unspecified; Z79.01 Long term (current) use of anticoagulants; Z79.84 Long term (current) use of oral hypoglycemic drugs; Z79.899 Other long term (current) drug therapy; Z87.891 Personal history of nicotine dependence; Z95.0 Presence of cardiac pacemaker; Z95.3 Presence of xenogenic heart valve; Z90.49 Acquired absence of other specified parts of digestive tract; Z98.42 Cataract extraction status, left eye; Z98.41 Cataract extraction status, right eye
CPT/HCPCS: 36415; 70450; 71046; 71275; 74176; 80048; 80053; 81001; 83605; 84145; 85025; 85610; 85730; 87040; 87086; 87502; 87635; 93005; 96361; 96374; 99285

== ENCOUNTER 2021-09-18 20:32 | Inpatient (IN) | payer MEDICARE ==
[2021-09-18] MEDS ORDERED: methylPREDNISolone SOD SUCCI 125 MG/2 ML VIAL IV STA (20:47)
[2021-09-18] MEDS ORDERED: IPRATROPIUM-ALBUTEROL 3 ML NEB INHALATION STA ×2 (20:47→21:49)
[2021-09-18 21:34] LABS: Basophils # (A) 0.2 k/uL (0-0.2); Basophils % (A) 2 %; Eosinophils # (A) 0.1 k/uL (0-0.7); Eosinophils % (A) 1 %; HCT 44.8 % (39.0-53.0); HGB 14.2 gm/dL (13.0-17.5); Lymphocytes # (A) 0.7 k/uL (1.0-4.8); Lymphocytes % (A) 8 %; MCH 31.5 pg (25.0-35.0); MCHC 31.7 g/dL (31.0-37.0); MCV 99.5 fL (80.0-100.0); Mean Platelet Volume 7.5; Monocytes % (A) 11 %; Neutrophils # (A) 6.9 k/uL (1.3-7.7); Neutrophils % (A) 76 %; Platelet Count 222 k/uL (150-450); RDW 13.5 % (11.5-15.5); WBC 9.1 k/uL (3.8-10.6)
[2021-09-18 21:46] LABS: ALT 26 U/L (4-49); AST 37 U/L (17-59); African American GFR (CKD) >90 (>60 ml/min/1.73 sqM); Albumin 4.4 g/dL (3.5-5.0); Alkaline Phosphatase 84 U/L (38-126); Anion Gap 11 mmol/L; Blood Urea Nitrogen 18 mg/dL (9-20); Calcium 8.8 mg/dL (8.4-10.2); Carbon Dioxide 27 mmol/L (22-30); Chloride 98 mmol/L (98-107); Glucose 97 mg/dL (74-99); Magnesium 1.8 mg/dL (1.6-2.3); Non-African American GFR(CKD) 89 (>60 ml/min/1.73 sqM); Potassium 4.4 mmol/L (3.5-5.1); Sodium 136 mmol/L (137-145); Total Bilirubin 0.7 mg/dL (0.2-1.3); Total Protein 8.1 g/dL (6.3-8.2)
--- NOTE | 2021-09-18 21:52 | XR ---
EXAMINATION TYPE: XR chest 2V DATE OF EXAM: 09/18/2021 COMPARISON: 08/25/2021 HISTORY: Fever TECHNIQUE: 3 views FINDINGS: Heart is enlarged. No heart failure seen. No evidence of pleural effusion. There is coarsen ing of the lung markings. There is left axillary pacemaker. IMPRESSION: Cardiomegaly. Mild pulmonary fibrotic changes. No pulmonary consolidation. No adverse hank nge compared to the old exam
--- NOTE | 2021-09-18 22:04 | ED ---
General Adult HPI - General Chief complaint: Weakness Stated complaint: Weakness Time Seen by Provider: 09/18/21 20:38 Source: patient, RN notes reviewed, old records reviewed Mode of arrival: EMS - History of Present Illness Initial comments: Patient is a 70-year-old male who presents emergency Department over concern for progressive weakness. Has been present over the last 2 days or so. Describes as generalized weakness, particularly in his lower extremities. States his legs cannot support himself. Does have a significant cardiac history, diabetes, atrial fibrillation on Coumadin. States he did fall but did not hit his head. Denies any loss of conscious. Uncertain when the fall was, believes it was yesterday. Endorses some increased work of breathing but denies any cough, fevers, chills. Was vaccinated For Covid as well as influenza. Denies any chest pain. Denies any lower extremity edema. Does have a history of COPD. Is not on oxygen at home. No other acute complaints at this time. Was recently discharged for a UTI and similar weakness. - Related Data Home Medications Medication Instructions Recorded Confirmed metFORMIN HCL [Glucophage] 500 mg PO DAILY@0900 10/15/14 09/18/21 Atorvastatin [Lipitor] 40 mg PO HS@2100 11/23/16 09/18/21 Cyanocobalamin (Vitamin B-12) 1,000 mcg PO DAILY 12/21/18 09/18/21 [Vitamin B-12] Acetaminophen Tab [Tylenol] 500 mg PO Q6H PRN 08/25/21 09/18/21 Metoprolol Tartrate [Lopressor] 50 mg PO BID@0900,1700 08/25/21 09/18/21 Multivit-Min/FA/Lycopen/Lutein 1 tab PO DAILY@0900 08/25/21 09/18/21 [Centrum Silver Men Tablet] OLANZapine 10 mg PO HS@2100 08/25/21 09/18/21 buPROPion XL [Wellbutrin XL] 300 mg PO DAILY@1700 08/25/21 09/18/21 lisinopriL [Zestril] 20 mg PO DAILY@0900 08/25/21 09/18/21 metOLazone 2.5 mg PO MO 08/25/21 09/18/21 modafiniL [Provigil] 400 mg PO DAILY@0900 08/25/21 09/18/21 tiZANidine [Zanaflex] 2 mg PO HS@2100 08/25/21 09/18/21 traMADol HCL 50 mg PO TID PRN 08/25/21 09/18/21 Fluticasone/Salmeterol [Advair Hfa 1 puff INHALATION RT-DAILY 09/18/21 09/18/21 230-21 Mcg Inhaler] Previous Rx's Medication Instructions Recorded Tamsulosin [Flomax] 0.4 mg PO DAILY #30 cap 08/30/21 Warfarin [Coumadin] 7.5 mg PO HS@2100 #0 08/30/21 Allergies Allergy/AdvReac Type Severity Reaction Status Date / Time No Known Allergies Allergy Verified 09/18/21 20:53 Review of Systems ROS Statement: Those systems with pertinent positive or pertinent negative responses have been documented in the HPI. Review of Systems: CONST: Denies fever EYES: Denies blurry vision ENT: Denies nasal congestion C/V: Denies Chest pain RESP: Endorses cough, nonproductive GI: Denies abdominal pain : Denies dysuria SKIN: Denies rash. MSK: Denies joint pain. NEURO: Endorses generalized weakness ROS Other: All systems not noted in ROS Statement are negative. Past Medical History Past Medical History: Diabetes Mellitus, Hypertension Additional Past Medical History / Comment(s): irregular heartbeat, varicose veins, 2 herniated disk/degenerative disks, leaky heart valve, "blood clots in the heart" History of Any Multi-Drug Resistant Organisms: None Reported Past Surgical History: Appendectomy, Bowel Resection, Cardiac Valve Replacement, Heart Catheterization, Orthopedic Surgery, Tonsillectomy Additional Past Surgical History / Comment(s): left shoulder surgery, surgery for sleep apnea, deana cataracts, Aortic Valve replacement (bovine) 06/2016 Past Anesthesia/Blood Transfusion Reactions: No Reported Reaction Past Psychological History: Depression Smoking Status: Former smoker Past Alcohol Use History: Occasional Past Drug Use History: None Reported - Past Family History Mother Family Medical History: No Reported History General Exam - General Exam Comments Initial Comments: General: Appears in no acute distress. HEAD: Normal with no signs of head trauma. EYES: PERRLA, EOMI, conjunctiva normal, no discharge. ENT: Hearing grossly intact, normal oropharynx. RESPIRATORY: Diffuse end expiratory wheezing bilaterally. 93-94% on room air, typically not hypoxic. No increased work of breathing. C/V: Irregular rate and rhythm. S1 and S2 auscultated. Peripheral pulses 2+ intact throughout. Mild pitting edema bilateral lower extremities which is symmetrical. ABD: Soft, nondistended. On palpation, patient does have pain in the right lower quadrant. States it is mild. No guarding. No peritoneal signs. No rebound tenderness. No CVA tenderness to percussion. EXT: Normal range of motion, no obvious deformity SKIN: No rashes or lesions observed on exposed skin. NEURO: Alert and oriented 4. No focal sensory strength deficits. Cranial nerves II through XII intact. Course Vital Signs 09/18/21 09/18/21 09/18/21 20:48 21:28 21:44 Temperature 98.1 F Pulse Rate 69 72 78 Respiratory 18 Rate Blood Pressure 154/81 O2 Sat by Pulse 95 Oximetry 09/18/21 09/18/21 09/18/21 22:36 22:44 23:02 Temperature Pulse Rate 79 80 81 Respiratory 20 Rate Blood Pressure 145/62 O2 Sat by Pulse 94 L Oximetry Medical Decision Making - Medical Decision Making Based on the patient's presentation and physical exam, weakness could be poly- factorial. He appears to be having an acute COPD exacerbation, cannot rule out infectious etiology at this time. He also has a recent fall on blood thinners. He is also complaining of abdominal pain. We will obtain a broad workup including cardiac workup. CT brain as well as CT abdomen and pelvis with contrast will be obtained. He'll be given IV steroids as well as breathing treatments for COPD exacerbation. We will test the patient the Covid and flu. He was in agreement this plan. EKG showed no signs of acute ischemia.Chest x-ray revealed cardiomegaly as well as what appears to be pulmonary vascular congestion that is similar to prior exams. Laboratory studies remarkable for a therapeutic INR at 2.1. Troponin is 0.035. BNP is elevated to 1700. Patient is influenza A+. Remainder the labs are unremarkable.CT brain shows chronic ischemic changes. CT abdomen and pelvis shows no acute intra-abdominal process. Following breathing treatments, patient's lung sounds are improved, however he is still wheezing. It appears that his symptoms appear to be multifactorial, with influenza, COPD, as well as CHF. He'll be started on Lasix twice a day. We will continue COPD treatment with every six-hour steroids as well as every 4 hr breathing treatments. Patient was given an aspirin following the negative head CT. He'll be started on Tamiflu due to his age and risk factors concerning he is influenza A positive. He was in agreement this plan. He will be admitted. I updated the patient home with his laboratory studies and imaging findings. Urinalysis still pending at this time. I spoke the admitting team, Dr. Martin who accepted the admission. - Lab Data Result diagrams: 09/18/21 21:10 09/18/21 21:10 Lab Results 09/18/21 09/18/21 09/18/21 Range/Units 21:10 21:10 21:10 WBC 9.1 (3.8-10.6) k/uL RBC 4.50 (4.30-5.90) m/uL Hgb 14.2 (13.0-17.5) gm/dL Hct 44.8 (39.0-53.0) % MCV 99.5 (80.0-100.0) fL MCH 31.5 (25.0-35.0) pg MCHC 31.7 (31.0-37.0) g/dL RDW 13.5 (11.5-15.5) % Plt Count 222 (150-450) k/uL MPV 7.5 Neutrophils % 76 % Lymphocytes % 8 % Monocytes % 11 % Eosinophils % 1 % Basophils % 2 % Neutrophils # 6.9 (1.3-7.7) k/uL Lymphocytes # 0.7 L (1.0-4.8) k/uL Monocytes # 1.0 (0-1.0) k/uL Eosinophils # 0.1 (0-0.7) k/uL Basophils # 0.2 (0-0.2) k/uL PT 21.2 H (9.0-12.0) sec INR 2.1 H (<1.2) APTT 38.9 H (22.0-30.0) sec Sodium 136 L (137-145) mmol/L Potassium 4.4 (3.5-5.1) mmol/L Chloride 98 (98-107) mmol/L Carbon Dioxide 27 (22-30) mmol/L Anion Gap 11 mmol/L BUN 18 (9-20) mg/dL Creatinine 0.83 (0.66-1.25) mg/dL Est GFR (CKD-EPI)AfAm >90 (>60 ml/min/1.73 sqM) Est GFR (CKD-EPI)NonAf 89 (>60 ml/min/1.73 sqM) Glucose 97 (74-99) mg/dL Plasma Lactic Acid Epi (0.7-2.0) mmol/L Calcium 8.8 (8.4-10.2) mg/dL Magnesium 1.8 (1.6-2.3) mg/dL Total Bilirubin 0.7 (0.2-1.3) mg/dL AST 37 (17-59) U/L ALT 26 (4-49) U/L Alkaline Phosphatase 84 (38-126) U/L Troponin I (0.000-0.034) ng/mL NT-Pro-B Natriuret Pep pg/mL Total Protein 8.1 (6.3-8.2) g/dL Albumin 4.4 (3.5-5.0) g/dL Urine Color Urine Appearance (Clear) Urine pH (5.0-8.0) Ur Specific [place] (1.001-1.035) Urine Protein (Negative) Urine Glucose (UA) (Negative) Urine Ketones (Negative) Urine Blood (Negative) Urine Nitrite (Negative) Urine Bilirubin (Negative) Urine Urobilinogen (<2.0) mg/dL Ur Leukocyte Esterase (Negative) Influenza Type A (PCR) (Not Detectd) Influenza Type B (PCR) (Not Detectd) RSV (PCR) (Not Detectd) SARS-CoV-2 (PCR) (Not Detectd) 09/18/21 09/18/21 09/18/21 Range/Units 21:10 21:10 21:10 WBC (3.8-10.6) k/uL RBC (4.30-5.90) m/uL Hgb (13.0-17.5) gm/dL Hct (39.0-53.0) % MCV (80.0-100.0) fL MCH (25.0-35.0) pg MCHC (31.0-37.0) g/dL RDW (11.5-15.5) % Plt Count (150-450) k/uL MPV Neutrophils % % Lymphocytes % % Monocytes % % Eosinophils % % Basophils % % Neutrophils # (1.3-7.7) k/uL Lymphocytes # (1.0-4.8) k/uL Monocytes # (0-1.0) k/uL Eosinophils # (0-0.7) k/uL Basophils # (0-0.2) k/uL PT (9.0-12.0) sec INR (<1.2) APTT (22.0-30.0) sec Sodium (137-145) mmol/L Potassium (3.5-5.1) mmol/L Chloride (98-107) mmol/L Carbon Dioxide (22-30) mmol/L Anion Gap mmol/L BUN (9-20) mg/dL Creatinine (0.66-1.25) mg/dL Est GFR (CKD-EPI)AfAm (>60 ml/min/1.73 sqM) Est GFR (CKD-EPI)NonAf (>60 ml/min/1.73 sqM) Glucose (74-99) mg/dL Plasma Lactic Acid Epi 1.6 (0.7-2.0) mmol/L Calcium (8.4-10.2) mg/dL Magnesium (1.6-2.3) mg/dL Total Bilirubin (0.2-1.3) mg/dL AST (17-59) U/L ALT (4-49) U/L Alkaline Phosphatase (38-126) U/L Troponin I 0.035 H* (0.000-0.034) ng/mL NT-Pro-B Natriuret Pep 1770 pg/mL Total Protein (6.3-8.2) g/dL Albumin (3.5-5.0) g/dL Urine Color Urine Appearance (Clear) Urine pH (5.0-8.0) Ur Specific [place] (1.001-1.035) Urine Protein (Negative) Urine Glucose (UA) (Negative) Urine Ketones (Negative) Urine Blood (Negative) Urine Nitrite (Negative) Urine Bilirubin (Negative) Urine Urobilinogen (<2.0) mg/dL Ur Leukocyte Esterase (Negative) Influenza Type A (PCR) (Not Detectd) Influenza Type B (PCR) (Not Detectd) RSV (PCR) (Not Detectd) SARS-CoV-2 (PCR) (Not Detectd) 09/18/21 09/18/21 Range/Units 21:10 22:57 WBC (3.8-10.6) k/uL RBC (4.30-5.90) m/uL Hgb (13.0-17.5) gm/dL Hct (39.0-53.0) % MCV (80.0-100.0) fL MCH (25.0-35.0) pg MCHC (31.0-37.0) g/dL RDW (11.5-15.5) % Plt Count (150-450) k/uL MPV Neutrophils % % Lymphocytes % % Monocytes % % Eosinophils % % Basophils % % Neutrophils # (1.3-7.7) k/uL Lymphocytes # (1.0-4.8) k/uL Monocytes # (0-1.0) k/uL Eosinophils # (0-0.7) k/uL Basophils # (0-0.2) k/uL PT (9.0-12.0) sec INR (<1.2) APTT (22.0-30.0) sec Sodium (137-145) mmol/L Potassium (3.5-5.1) mmol/L Chloride (98-107) mmol/L Carbon Dioxide (22-30) mmol/L Anion Gap mmol/L BUN (9-20) mg/dL Creatinine (0.66-1.25) mg/dL Est GFR (CKD-EPI)AfAm (>60 ml/min/1.73 sqM) Est GFR (CKD-EPI)NonAf (>60 ml/min/1.73 sqM) Glucose (74-99) mg/dL Plasma Lactic Acid Epi (0.7-2.0) mmol/L Calcium (8.4-10.2) mg/dL Magnesium (1.6-2.3) mg/dL Total Bilirubin (0.2-1.3) mg/dL AST (17-59) U/L ALT (4-49) U/L Alkaline Phosphatase (38-126) U/L Troponin I (0.000-0.034) ng/mL NT-Pro-B Natriuret Pep pg/mL Total Protein (6.3-8.2) g/dL Albumin (3.5-5.0) g/dL Urine Color Light Yellow Urine Appearance Clear (Clear) Urine pH 6.5 (5.0-8.0) Ur Specific [place] 1.030 (1.001-1.035) Urine Protein Trace H (Negative) Urine Glucose (UA) Negative (Negative) Urine Ketones Negative (Negative) Urine Blood Negative (Negative) Urine Nitrite Negative (Negative) Urine Bilirubin Negative (Negative) Urine Urobilinogen <2.0 (<2.0) mg/dL Ur Leukocyte Esterase Negative (Negative) Influenza Type A (PCR) Detected A (Not Detectd) Influenza Type B (PCR) Not Detected (Not Detectd) RSV (PCR) Not Detected (Not Detectd) SARS-CoV-2 (PCR) Not Detected (Not Detectd) - EKG Data -: EKG Interpreted by Me EKG Comments: 12-lead Electrocardiogram Interpretation Note EKG was reviewed and interpreted by myself. 12-lead ECG performed at 2147 is interpreted by me as revealing atrial fibrillation at a rate of 69 beats per minute. [place] is normal. [place] interval is unobtainable, QRS duration is 103 ms, QTc is 396 seconds. There are T-wave inversion seen in the lateral precordial leads, which are seen somewhat on prior EKGs.. R wave progression across the precordium was satisfactory. By my interpretation this EKG is non-diagnostic for acute ischemia. Shows chronic changes. Disposition Clinical Impression: COPD exacerbation, CHF exacerbation, Influenza A Disposition: ADMITTED IP TO THIS HOSP Condition: Stable Referrals: Cory Goodman MD [Primary Care Provider] - 1-2 days
[2021-09-18 22:29] LABS: INR 2.1 (<1.2); Partial Thromboplastin Time 38.9 sec (22.0-30.0); Prothrombin Time 21.2 sec (9.0-12.0)
[2021-09-18] MEDS ORDERED: FUROSEMIDE 10 MG/ML 4 ML VIAL IV STA (22:34)
[2021-09-18] MEDS: methylPREDNISolone SOD SUCCI 40 MG/ML 1 ML VIAL IV SCH (22:59)
--- NOTE | 2021-09-18 23:11 | CT ---
EXAMINATION TYPE: CT brain wo con DATE OF EXAM: 09/18/2021 COMPARISON: 08/25/2021 HISTORY: Weakness. CT DLP: 1247.4 mGycm Automated exposure control for dose reduction was used. There is cerebral cortical atrophy. There is no mass effect or midline shift. There is no sign of int racranial hemorrhage. There is patchy hypodensity in the periventricular white matter. Calvarium is i ntact. Sella turcica appears intact. Skull base is intact. IMPRESSION: Patchy white matter hypodensity consistent with multifocal chronic small vessel ischemia. No change c ompared to old exam. No hemorrhage.
[2021-09-18] MEDS ORDERED: ASPIRIN 81 MG PO STA (23:14)
[2021-09-18 23:15] LABS: Appearance,Urine Clear (Clear); Bilirubin,Urine Negative (Negative); Blood,Urine Negative (Negative); Color,Urine Light Yellow; Glucose,Urine (UA) Negative (Negative); Ketones,Urine Negative (Negative); Leukocyte Esterase,Urine Negative (Negative); Nitrite,Urine Negative (Negative); PH, Urine 6.5 (5.0-8.0); Protein,Urine Trace (Negative); Urobilinogen,Urine <2.0 mg/dL (<2.0)
[2021-09-18] MEDS: OSELTAMIVIR 75 MG CAP PO SCH (23:21)
--- NOTE | 2021-09-18 23:21 | CT ---
EXAMINATION TYPE: CT abdomen pelvis w con DATE OF EXAM: 09/18/2021 COMPARISON: 08/26/2021 HISTORY: Right lower quadrant pain. CT DLP: 2850.4 mGycm Automated exposure control for dose reduction was used. CONTRAST: Performed with IV Contrast, patient injected with 100 mL of Isovue 300. Images obtained from the diaphragm to the floor of the pelvis with IV contrast. Lung bases appear clear of consolidation. No pleural effusion. Heart size is top normal. No pericardi al effusion. Liver and spleen are intact. Mild ulcer not dilated. Gallbladder appears normal. There i s no pancreatic mass. The stomach appears intact. There is no adrenal mass. Kidneys show satisfactory contrast opacification. There is no hydronephrosi s. Ureters are not dilated. There is no retroperitoneal adenopathy. Bladder distends smoothly. There is no inguinal hernia. No free fluid in the pelvis. No pelvic mass. There is no mesenteric edema. No ascites or free air. No bowel obstruction. There are clips apparentl y from appendectomy. The lumbar vertebrae have normal alignment. No compression fracture. Posterior elements are intact. T here is minor spurring in the endplates of the lumbar spine. No significant disc space narrowing. The bony pelvis is intact. The hip joints are intact. IMPRESSION: No acute abnormality of the abdomen and pelvis. There is evidence of mild cardiomegaly unchanged.
[2021-09-18] MEDS ORDERED: NALOXONE 0.4 MG/ML 1 ML VIAL IV PRN (23:26)
[2021-09-19] MEDS: WARFARIN 7.5 MG TAB PO SCH ×2 (01:28→21:00)
[2021-09-19] MEDS: IPRATROPIUM-ALBUTEROL 3 ML NEB INHALATION SCH ×7 (02:09→23:12)
[2021-09-19 03:32] LABS: Basophils % (A) 0 %; Eosinophils % (A) 0 %; HCT 42.7 % (39.0-53.0); HGB 13.3 gm/dL (13.0-17.5); Hypochromasia Slight; Lymphocytes # (A) 0.4 k/uL (1.0-4.8); Lymphocytes % (A) 5 %; MCH 31.6 pg (25.0-35.0); MCHC 31.2 g/dL (31.0-37.0); MCV 101.4 fL (80.0-100.0); Macrocytosis Slight; Mean Platelet Volume 7.2; Monocytes # (A) 0.2 k/uL (0-1.0); Monocytes % (A) 3 %; Neutrophils # (A) 5.8 k/uL (1.3-7.7); Neutrophils % (A) 90 %; Platelet Count 220 k/uL (150-450); RBC 4.21 m/uL (4.30-5.90); RDW 13.4 % (11.5-15.5); WBC 6.4 k/uL (3.8-10.6)
[2021-09-19 03:40] LABS: African American GFR (CKD) >90 (>60 ml/min/1.73 sqM); Anion Gap 9 mmol/L; Blood Urea Nitrogen 21 mg/dL (9-20); Calcium 8.5 mg/dL (8.4-10.2); Carbon Dioxide 26 mmol/L (22-30); Chloride 100 mmol/L (98-107); Glucose 236 mg/dL (74-99); Non-African American GFR(CKD) 84 (>60 ml/min/1.73 sqM); Potassium 4.4 mmol/L (3.5-5.1); Sodium 135 mmol/L (137-145)
[2021-09-19] MEDS: methylPREDNISolone SOD SUCCI 40 MG/ML 1 ML VIAL IV SCH ×4 (05:35→23:26)
[2021-09-19 06:55] LABS: Glucose,Whole Blood 205 mg/dL (75-99)
[2021-09-19] MEDS: INSULIN ASPART (NovoLOG) 100 UNIT/ML VIAL SQ SCH ×4 (06:56→21:00)
[2021-09-19 08:01] LABS: INR 1.9 (<1.2); Prothrombin Time 19.7 sec (9.0-12.0)
[2021-09-19] MEDS: SYMBICORT 160-4.5 MCG INHALER INHALATION SCH ×2 (08:17→20:00)
[2021-09-19] MEDS ORDERED: FUROSEMIDE 10 MG/ML 4 ML VIAL IV SCH (09:00)
[2021-09-19] MEDS ORDERED: traMADol 50 MG TAB PO PRN (09:00)
[2021-09-19] MEDS: OSELTAMIVIR 75 MG CAP PO SCH ×2 (09:29→21:45)
[2021-09-19] MEDS: METOPROLOL TARTRATE 50 MG TAB PO SCH ×2 (09:29→17:10)
[2021-09-19] MEDS: TAMSULOSIN 0.4 MG CAP.ER.24H PO SCH (09:29)
[2021-09-19] MEDS: lisinopriL 20 MG TAB PO SCH (09:29)
[2021-09-19] MEDS: metFORMIN 500 MG TAB PO SCH (09:29)
[2021-09-19] MEDS: CYANOCOBALAMIN 500 MCG TAB PO SCH (09:29)
[2021-09-19] MEDS: SODIUM CHLORIDE 0.9% 1,000 ML IV SCH ×2 (09:30→23:26)
--- NOTE | 2021-09-19 10:27 | CONS ---
CONSULTATION Neo Gaston is a 70-year-old gentleman with a history of chronic atrial fibrillation, status post aortic valve replacement performed in with a tissue valve. He came into the hospital mainly with complaints of feeling weak, tired, lack of energy, fatigue and also had some shortness of breath. He was found to have influenza A infection. He has diabetes as well. He does not have any obstructive CAD. I was asked to see him because of possible heart failure. Patient is not in heart failure clinically. His borderline elevation of BNP is not significant. He has influenza A but no COVID infection. He is in atrial fibrillation. Rate is well controlled. Pacemaker is functioning well. I am recommending that he should be evaluated by Pulmonology and also by Infectious Disease. No intervention is necessary from a cardiac standpoint. I would recommend that we switch him from IV to oral Lasix and start 0.9 saline at 50 mL/hour. Clinically patient is not in any heart failure. He has history of COPD and past history of smoking as well. . PAST MEDICAL HISTORY: 1. Type 2 diabetes. 2. Hypertension. 3. Chronic atrial fibrillation. 4. 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 5. No significant obstructive CAD. 6. Past history of smoking and some COPD. PHYSICAL EXAMINATION: On examination, blood pressure is 118/70, pulse rate is 70 per minute, irregular. HEENT unremarkable. Fundus was not examined by me. Neck is supple. There is no JVD. I do not hear a carotid bruit. Heart exam reveals S1, S2 with a short systolic murmur at the base. Second heart sound is preserved. Lungs reveal decent air entry. Abdomen is soft, nontender. Lower extremities reveal diminished pulses. Central nervous system grossly no focal deficits. EKG revealed atrial fibrillation, controlled ventricular rate, nonspecific ST-T changes. IMPRESSION: 1. Influenza A infection. 2. Chronic obstructive pulmonary disease with mild exacerbation. 3. History of aortic valve replacement. 4. Nonischemic cardiomyopathy-type picture. 5. 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 6. Chronic atrial fibrillation with a back-up permanent pacemaker. RECOMMENDATIONS: I would recommend that we switch him from IV to oral Lasix. Cautiously hydrate him at 0.9 saline at 50 mL/hour, seek input from Infectious Disease and Pulmonology. No other intervention is necessary from a cardiac standpoint. Patient's echocardiogram revealed fairly well-preserved LV systolic function in the past. Thank you very much for the consult. NIMESH / HORACIO: [id number] /
[2021-09-19 12:00] LABS: Glucose,Whole Blood 183 mg/dL (75-99)
--- NOTE | 2021-09-19 12:19 | P.HPIM ---
History of Present Illness H&P Date: 09/19/21 Chief Complaint: Shortness of breath Patient is a 70-year-old male with a known history of atrial fibrillation on anticoagulation with warfarin, hypertension, diabetes type 2, obstructive sleep apnea on CPAP at home, degenerative disc disease, history of pacemaker placement and I aortic valve replacement and previous history of smoking presents to ER with complaints of generalized weakness and worsening shortness of breath for the past 1-2 days. Patient states that he did fall but did not hit his head. Denied any fever or chills. Patient was recently admitted to the hospital due to fever of unknown accident thought to be due to urinary tract infection. Patient was discharged on 08/30/2021. Denied any complaints of chest pain. No nausea vomiting or abdominal pain or diarrhea. No cough or sputum production. On admission blood pressure was 1 54/81 pulse 69 respiration 18 pulse ox 92% on room air. Chest x-ray showed cardiomegaly. A mild pulmonary fibrotic changes. No pulmonary consolidation. No adverse change compared to old exam. CT head showed patchy white matter hypodensity consistent with multifocal chronic small represent ischemia. No change compared to old exam. No hemorrhages. Next and CT abdomen pelvis showed no acute abnormality of the abdominal pelvis. There is evidence of mild cardiomegaly unchanged. EKG showed irregular rhythm. Laboratory data showed WBC 6.4 hemoglobin 13.3 and platelets 220 BUN 18 and creatinine 0.83. INR 2.1 Troponin 0.035, 0.043 and 0.047N has not elevated proBNP is 1770 sodium 135 potassium 4.4 chloride 100 bicarb is 26 UA negative for infection. Influenza A PCR detected. Patient is vaccinated for flu and covid 19 Review of Systems Constitutional: Patient denies any fever or chills . Generalized weakness and tiredness.. Abdomen: Patient denied nausea vomiting and diarrhea and abdominal pain. Cardiovascular: Patient denies any chest pain . Positive short of breath no palpitations. No worsening leg swelling. Respiratory: patient denied any cough is from production. Does have shortness of breath Neurologic: Patient denied any numbness or tingling headache. Musculoskeletal: Patient denies any complaints of joint swelling or deformity. Skin: Negative Psychiatric: Negative Endocrine: No heat or cold intolerance. No recent weight gain. Genitourinary: No dysuria or hematuria. All other 14 point ROS negative except the above Past Medical History Past Medical History: Heart Failure, COPD, Diabetes Mellitus, Hypertension, Sleep Apnea/CPAP/BIPAP Additional Past Medical History / Comment(s): irregular heartbeat, varicose veins, 2 herniated disk/degenerative disks, leaky heart valve, "blood clots in the heart" History of Any Multi-Drug Resistant Organisms: None Reported Past Surgical History: Appendectomy, Bowel Resection, Cardiac Valve Replacement, Heart Catheterization, Orthopedic Surgery, Pacemaker, Tonsillectomy Additional Past Surgical History / Comment(s): left shoulder surgery, surgery for sleep apnea, deana cataracts, Aortic Valve replacement (bovine) 06/2016 Past Anesthesia/Blood Transfusion Reactions: No Reported Reaction Type of Cardiac Device: Permanent Pacemaker Device Placement Date:: 12/24/2018 Past Psychological History: Depression Smoking Status: Former smoker Past Alcohol Use History: Occasional Additional Past Alcohol Use History / Comment(s): quit smoking 2014. smoked for 30 yrs, < 1 PPD Past Drug Use History: None Reported - Past Family History Mother Family Medical History: No Reported History Medications and Allergies Home Medications Medication Instructions Recorded Confirmed Type metFORMIN HCL [Glucophage] 500 mg PO DAILY@0900 10/15/14 09/18/21 History Atorvastatin [Lipitor] 40 mg PO HS@209911/23/16 09/18/21 History Cyanocobalamin (Vitamin B-12) 1,000 mcg PO DAILY 12/21/18 09/18/21 History [Vitamin B-12] Acetaminophen Tab [Tylenol] 500 mg PO Q6H PRN 08/25/21 09/18/21 History Metoprolol Tartrate [Lopressor] 50 mg PO BID@0900,1700 08/25/21 09/18/21 History Multivit-Min/FA/Lycopen/Lutein 1 tab PO DAILY@0900 08/25/21 09/18/21 History [Centrum Silver Men Tablet] OLANZapine 10 mg PO HS@2100 08/25/21 09/18/21 History buPROPion XL [Wellbutrin XL] 300 mg PO DAILY@1700 08/25/21 09/18/21 History lisinopriL [Zestril] 20 mg PO DAILY@0900 08/25/21 09/18/21 History metOLazone 2.5 mg PO MO 08/25/21 09/18/21 History modafiniL [Provigil] 400 mg PO DAILY@0900 08/25/21 09/18/21 History tiZANidine [Zanaflex] 2 mg PO HS@2100 08/25/21 09/18/21 History traMADol HCL 50 mg PO TID PRN 08/25/21 09/18/21 History Tamsulosin [Flomax] 0.4 mg PO DAILY #30 cap 08/30/21 09/18/21 Rx Warfarin [Coumadin] 7.5 mg PO HS@2100 #0 08/30/21 09/18/21 Rx Fluticasone/Salmeterol [Advair Hfa 1 puff INHALATION RT-DAILY 09/18/21 09/18/21 History 230-21 Mcg Inhaler] Allergies Allergy/AdvReac Type Severity Reaction Status Date / Time No Known Allergies Allergy Verified 09/18/21 20:53 Physical Exam Vitals: Vital Signs Temp Pulse Pulse Resp BP BP Pulse Ox 09/19/21 11:33 76 09/19/21 11:23 72 09/19/21 08:30 80 09/19/21 08:18 76 09/19/21 08:00 98.6 F 67 18 126/60 93 L 09/19/21 04:00 97.9 F 65 16 112/61 92 L 09/19/21 03:49 62 09/19/21 03:37 64 09/19/21 02:00 77 18 09/19/21 00:53 99.1 F 77 18 115/62 95 09/18/21 23:02 81 20 145/62 94 L 09/18/21 22:44 80 09/18/21 22:36 79 09/18/21 21:44 78 09/18/21 21:28 72 09/18/21 20:48 98.1 F 69 18 154/81 95 Intake and Output 09/18/21 09/19/21 09/19/21 22:59 06:59 14:59 Other: Voiding Method Urinal Urinal Diaper Diaper Weight 149.685 kg 149.68 kg PHYSICAL EXAMINATION: Patient is lying in the bed comfortably, no acute distress, awake alert and oriented.. Morbidly obese. HEENT: Normocephalic. Neck is supple. Pupils reactive. Nostrils clear. Oral cavity is moist. Neck reveals no JVD, carotid bruits, or thyromegaly. CHEST EXAMINATION: Trachea is central. Symmetrical expansion. Bibasilar diminished sounds and expiratory wheezing. CARDIAC: Normal S1, S2 with no gallops. No murmurs ABDOMEN: Soft. Bowel sounds normal. No organomegaly. No abdominal bruits. Extremities: Trace bilateral pedal edema. No clubbing or cyanosis Neurologically awake, alert, oriented x3 with well-coordinated movements. No focal deficits noted Skin: No rash or skin lesions. Psychiatric: Coperative. Nonsuicidal Musculoskeletal: No joint swelling or deformity. Normal range of motion. Results CBC & Chem 7: 09/19/21 03:00 09/19/21 03:00 Labs: Abnormal Lab Results - Last 24 Hours (Table) 09/18/21 09/18/21 09/18/21 Range/Units 21:10 21:10 21:10 RBC (4.30-5.90) m/uL MCV (80.0-100.0) fL Lymphocytes # 0.7 L (1.0-4.8) k/uL PT 21.2 H (9.0-12.0) sec INR 2.1 H (<1.2) APTT 38.9 H (22.0-30.0) sec Sodium 136 L (137-145) mmol/L BUN (9-20) mg/dL Glucose (74-99) mg/dL POC Glucose (mg/dL) (75-99) mg/dL Troponin I (0.000-0.034) ng/mL Urine Protein (Negative) Influenza Type A (PCR) (Not Detectd) 09/18/21 09/18/21 09/18/21 Range/Units 21:10 21:10 22:57 RBC (4.30-5.90) m/uL MCV (80.0-100.0) fL Lymphocytes # (1.0-4.8) k/uL PT (9.0-12.0) sec INR (<1.2) APTT (22.0-30.0) sec Sodium (137-145) mmol/L BUN (9-20) mg/dL Glucose (74-99) mg/dL POC Glucose (mg/dL) (75-99) mg/dL Troponin I 0.035 H* (0.000-0.034) ng/mL Urine Protein Trace H (Negative) Influenza Type A (PCR) Detected A (Not Detectd) 09/18/21 09/19/21 09/19/21 Range/Units 23:55 03:00 03:00 RBC 4.21 L (4.30-5.90) m/uL MCV 101.4 H (80.0-100.0) fL Lymphocytes # 0.4 L (1.0-4.8) k/uL PT (9.0-12.0) sec INR (<1.2) APTT (22.0-30.0) sec Sodium (137-145) mmol/L BUN (9-20) mg/dL Glucose (74-99) mg/dL POC Glucose (mg/dL) (75-99) mg/dL Troponin I 0.043 H* 0.047 H* (0.000-0.034) ng/mL Urine Protein (Negative) Influenza Type A (PCR) (Not Detectd) 09/19/21 09/19/21 09/19/21 Range/Units 03:00 06:52 06:54 RBC (4.30-5.90) m/uL MCV (80.0-100.0) fL Lymphocytes # (1.0-4.8) k/uL PT 19.7 H (9.0-12.0) sec INR 1.9 H (<1.2) APTT (22.0-30.0) sec Sodium 135 L (137-145) mmol/L BUN 21 H (9-20) mg/dL Glucose 236 H (74-99) mg/dL POC Glucose (mg/dL) 205 H (75-99) mg/dL Troponin I (0.000-0.034) ng/mL Urine Protein (Negative) Influenza Type A (PCR) (Not Detectd) Thrombosis Risk Factor Assmnt - DVT/VTE Prophylaxis DVT/VTE Prophylaxis: Pharmacologic Prophylaxis ordered - Choose All That Apply Each Risk Factor Represents 3 Points: Age 75 years or older Thrombosis Risk Factor Assessment Total Risk Factor Score: 3 Thrombosis Risk Factor Assessment Level: Moderate Risk Assessment and Plan Assessment: Acute influenza A infection Acute COPD exacerbation with mild fibrotic changes in the lungs. Mild acute on chronic CHF with systolic dysfunction Mildly elevated troponin/troponin leak. Chronic atrial fibrillation on anticoagulation with Coumadin History of permanent pacemaker placement Nonischemic cardiomyopathy Status post I aortic valve replacement Morbid obesity with BMI 50.2 Obstructive sleep apnea on CPAP at home Hypertension Diabetes type 2 [id number] Depression Previous history of smoking Coumadin monitoring Plan: Patient will be continued on Tamiflu and encourage oral intake. Continue with methylprednisolone and DuoNeb's Patient was continued on IV Lasix changed to by mouth. Cardiology was consulted due to mild elevated troponin level. Continue with Coumadin dosing. Continue with metoprolol, statins and lisinopril. Monitor CBC and BMP. Oxygen supplementation. Pulmonary was consulted for evaluation. Prognosis is guarded with multiple medical problems and comorbid conditions. Time with Patient: Greater than 30
[2021-09-19 16:46] LABS: Glucose,Whole Blood 161 mg/dL (75-99)
[2021-09-19] MEDS: buPROPion XL 300 MG TAB.ER.24H PO SCH (17:10)
[2021-09-19 20:16] LABS: Glucose,Whole Blood 205 mg/dL (75-99)
[2021-09-19] MEDS: tiZANidine 4 MG TAB PO SCH (20:58)
[2021-09-19] MEDS: OLANZapine 10 MG TAB PO SCH (20:58)
[2021-09-19] MEDS: ATORVASTATIN 40 MG TAB PO SCH (20:59)
[2021-09-20] MEDS: IPRATROPIUM-ALBUTEROL 3 ML NEB INHALATION SCH ×6 (04:39→23:32)
[2021-09-20] MEDS: methylPREDNISolone SOD SUCCI 40 MG/ML 1 ML VIAL IV SCH ×4 (05:10→23:40)
[2021-09-20 06:14] LABS: Glucose,Whole Blood 140 mg/dL (75-99)
[2021-09-20] MEDS: INSULIN ASPART (NovoLOG) 100 UNIT/ML VIAL SQ SCH ×4 (06:46→20:28)
[2021-09-20 07:09] LABS: Basophils % (A) 0 %; Eosinophils % (A) 0 %; HCT 42.1 % (39.0-53.0); HGB 12.8 gm/dL (13.0-17.5); Hypochromasia Slight; Lymphocytes # (A) 0.6 k/uL (1.0-4.8); Lymphocytes % (A) 5 %; MCH 31.2 pg (25.0-35.0); MCHC 30.4 g/dL (31.0-37.0); MCV 102.7 fL (80.0-100.0); Macrocytosis Slight; Mean Platelet Volume 7.7; Monocytes # (A) 0.8 k/uL (0-1.0); Monocytes % (A) 6 %; Neutrophils # (A) 11.6 k/uL (1.3-7.7); Neutrophils % (A) 89 %; Platelet Count 226 k/uL (150-450); RDW 13.3 % (11.5-15.5)
[2021-09-20 07:36] LABS: INR 2.5 (<1.2); Prothrombin Time 25.1 sec (9.0-12.0)
[2021-09-20 08:34] LABS: Calcium 8.4 mg/dL (8.4-10.2)
[2021-09-20] MEDS: SYMBICORT 160-4.5 MCG INHALER INHALATION SCH ×2 (08:46→19:51)
[2021-09-20] MEDS ORDERED: metOLazone 2.5 MG TAB PO SCH (09:00)
[2021-09-20] MEDS: CYANOCOBALAMIN 500 MCG TAB PO SCH (09:16)
[2021-09-20] MEDS: METOPROLOL TARTRATE 50 MG TAB PO SCH ×2 (09:16→17:33)
[2021-09-20] MEDS: metFORMIN 500 MG TAB PO SCH (09:16)
[2021-09-20] MEDS: FUROSEMIDE 40 MG TAB PO SCH (09:16)
[2021-09-20] MEDS: lisinopriL 20 MG TAB PO SCH (09:16)
[2021-09-20] MEDS: OSELTAMIVIR 75 MG CAP PO SCH ×2 (09:17→20:29)
[2021-09-20] MEDS: TAMSULOSIN 0.4 MG CAP.ER.24H PO SCH (09:17)
--- NOTE | 2021-09-20 10:00 | ECHOF ---
Referral Reason:heart failure MEASUREMENTS -------- HEIGHT: 172.7 cm WEIGHT: 149.2 kg BP: 121/66 RVIDd: 3.5 cm (< 3.3) IVSd: 1.7 cm (0.6 - 1.1) LVIDd: 3.8 cm (3.9 - 5.3) LVPWd: 1.6 cm (0.6 - 1.1) IVSs: 2.5 cm LVIDs: 3.0 cm LVPWs: 1.6 cm Ao Diam: 3.0 cm (2.0 - 3.7) AV Cusp: 1.8 cm (1.5 - 2.6) LA Diam: 4.2 cm (2.7 - 3.8) MV EXCURSION: 21.432 mm (> 18.000) MV EF SLOPE: 107 mm/s (70 - 150) EPSS: 0.7 cm AV maxP.03 mmHg AV meanP.72 mmHg RAP: 5.00 mmHg RVSP: 22.32 mmHg FINDINGS -------- This was a technically difficult study with suboptimal views. The left ventricular size is normal. There is moderate concentric left ventricular hypertrophy. O verall left ventricular systolic function is mild-moderately impaired with, an EF between 40 - 45 %. Technically difficult and inadequate study Apical septum LV wall motion is hypokinetic. Dike H ypokinesis. The right ventricle is mildly enlarged. The left atrium was not well visualized. The right atrium was not well visualized. Lumason used The aortic valve was not well visualized. Peak/mean gradient across the Aortic Valve is 21.03mmHg / 14.72mmHg. Normally functioning bioprosthetic valve. The mitral valve was not well visualized. The tricuspid valve was not well visualized. Mild tricuspid regurgitation present. Right ventricu lar systolic pressure is normal at < 35 mmHg. The pulmonic valve was not well visualized. The aortic root size is normal. IVC Not well visulized. CONCLUSIONS -------- 1. The left ventricular size is normal. 2. There is moderate concentric left ventricular hypertrophy. 3. Overall left ventricular systolic function is mild-moderately impaired with, an EF between 40 - 45 %. 4. Technically difficult and inadequate study 5. Apical septum LV wall motion is hypokinetic. 6. Dike Hypokinesis. 7. The right ventricle is mildly enlarged. 8. Peak/mean gradient across the Aortic Valve is 21.03mmHg / 14.72mmHg. 9. Normally functioning bioprosthetic valve. 10. Mild tricuspid regurgitation present. RETAIL MERCHANDISING SPECIALIST: Mildred Slade RDCS
[2021-09-20 11:54] LABS: Glucose,Whole Blood 185 mg/dL (75-99)
[2021-09-20] MEDS: SODIUM CHLORIDE 0.9% 1,000 ML IV SCH (12:33)
--- NOTE | 2021-09-20 15:12 | P.CNPUL ---
History of Present Illness Consult date: 09/20/21 Reason for consult: dyspnea Chief complaint: Dyspnea, cough History of present illness: 30-year-old male patient with past history of hypertension, diabetes mellitus type 2, atrial fibrillation on Coumadin, obstructive sleep apnea on CPAP, DJD, previous history of pacemaker placement, chronic and ongoing history of smoking, valvular heart disease, who presented to the emergency department on 09/18/2021 with complaints of progressive weakness over the past 4-5 days. Describes it as generalized weakness, particularly in the lower extremities. Patient suffered a fall at home, however denied any trauma to his head. No loss of consciousness. Reports some mild shortness of breath, but denied any cough, no fever or chills. Patient is status post completed vaccination for COVID-19, and influenza. No lower extremity edema, no complaints of chest discomfort, no phlegm production, no hemoptysis. Patient was recently hospitalized for fever, that was suspected to be due to acute urinary tract infection. Urine cultures from that admission and blood cultures had shown no growth. During that time patient was also similarly weak. Patient was discharged home on 08/20/2021. Chest x-ray showed cardiomegaly, mild fibrotic pulmonary changes, no pulmonary consolidation. Lab evaluation showed lymphocyte count of 0.7, the rest of the CBC was within normal limits, white blood cell count is 9.1, hemoglobin was 14.2, INR was 2.1, sodium is 136, Duricef electrolytes and renal profile were within normal limits, lactic acid was 1.6, troponins were 0.035, 0.043, 0.047, proBNP was 1770, urinalysis showed trace protein but no evidence of infection, RSV, COVID-19 and influenza B were negative, however patient did test positive for influenza A. patient was started on nebulized and inhaled bronchodilators, she was started on Tamiflu for a total of 5 day course, she was also started on IV Solu-Medrol 40 mg every 6 hours. Review of Systems All systems: negative Constitutional: Reports fatigue, Reports malaise, Reports weakness, Denies chills, Denies fever Eyes: denies blurred vision, denies pain Ears, nose, mouth and throat: Denies headache, Denies sore throat Cardiovascular: Denies chest pain, Denies shortness of breath Respiratory: Reports congestion, Reports dyspnea, Denies cough Gastrointestinal: Denies abdominal pain, Denies diarrhea, Denies nausea, Denies vomiting Musculoskeletal: Denies myalgias Integumentary: Denies pruritus, Denies rash Neurological: Denies numbness, Denies weakness Psychiatric: Denies anxiety, Denies depression Endocrine: Denies fatigue, Denies weight change Past Medical History Past Medical History: Heart Failure, COPD, Diabetes Mellitus, Hypertension, Sleep Apnea/CPAP/BIPAP Additional Past Medical History / Comment(s): irregular heartbeat, varicose veins, 2 herniated disk/degenerative disks, leaky heart valve, "blood clots in the heart" History of Any Multi-Drug Resistant Organisms: None Reported Past Surgical History: Appendectomy, Bowel Resection, Cardiac Valve Replacement, Heart Catheterization, Orthopedic Surgery, Pacemaker, Tonsillectomy Additional Past Surgical History / Comment(s): left shoulder surgery, surgery for sleep apnea, deana cataracts, Aortic Valve replacement (bovine) 06/2016 Past Anesthesia/Blood Transfusion Reactions: No Reported Reaction Type of Cardiac Device: Permanent Pacemaker Device Placement Date:: 12/24/2018 Past Psychological History: Depression Smoking Status: Former smoker Past Alcohol Use History: Occasional Additional Past Alcohol Use History / Comment(s): quit smoking 2014. smoked for 30 yrs, < 1 PPD Past Drug Use History: None Reported - Past Family History Mother Family Medical History: No Reported History Medications and Allergies Home Medications Medication Instructions Recorded Confirmed Type metFORMIN HCL [Glucophage] 500 mg PO DAILY@0900 10/15/14 09/18/21 History Atorvastatin [Lipitor] 40 mg PO HS@2100 11/23/16 09/18/21 History Cyanocobalamin (Vitamin B-12) 1,000 mcg PO DAILY 12/21/18 09/18/21 History [Vitamin B-12] Acetaminophen Tab [Tylenol] 500 mg PO Q6H PRN 08/25/21 09/18/21 History Metoprolol Tartrate [Lopressor] 50 mg PO BID@0900,1700 08/25/21 09/18/21 History Multivit-Min/FA/Lycopen/Lutein 1 tab PO DAILY@0900 08/25/21 09/18/21 History [Centrum Silver Men Tablet] OLANZapine 10 mg PO HS@2100 08/25/21 09/18/21 History buPROPion XL [Wellbutrin XL] 300 mg PO DAILY@1700 08/25/21 09/18/21 History lisinopriL [Zestril] 20 mg PO DAILY@0900 08/25/21 09/18/21 History metOLazone 2.5 mg PO MO 08/25/21 09/18/21 History modafiniL [Provigil] 400 mg PO DAILY@0900 08/25/21 09/18/21 History tiZANidine [Zanaflex] 2 mg PO HS@2100 08/25/21 09/18/21 History traMADol HCL 50 mg PO TID PRN 08/25/21 09/18/21 History Tamsulosin [Flomax] 0.4 mg PO DAILY #30 cap 08/30/21 09/18/21 Rx Warfarin [Coumadin] 7.5 mg PO HS@2100 #0 08/30/21 09/18/21 Rx Fluticasone/Salmeterol [Advair Hfa 1 puff INHALATION RT-DAILY 09/18/21 09/18/21 History 230-21 Mcg Inhaler] Allergies Allergy/AdvReac Type Severity Reaction Status Date / Time No Known Allergies Allergy Verified 09/18/21 20:53 Physical Exam Vitals: Vital Signs Temp Pulse Pulse Resp BP Pulse Ox 09/20/21 12:17 68 18 09/20/21 12:11 68 18 09/20/21 08:57 65 18 09/20/21 08:46 63 18 93 L 09/20/21 08:00 98.1 F 65 18 135/65 94 L 09/20/21 04:52 68 09/20/21 04:39 64 09/20/21 03:53 98.2 F 64 17 121/66 93 L 09/20/21 02:00 62 17 09/20/21 00:00 97.8 F 62 18 127/78 94 L 09/19/21 23:27 72 09/19/21 23:12 68 09/19/21 20:11 69 09/19/21 20:01 67 09/19/21 19:54 97.9 F 68 20 128/67 94 L 09/19/21 17:07 99.0 F 61 18 115/63 94 L 09/19/21 15:47 68 09/19/21 15:44 61 18 09/19/21 15:35 64 Intake and Output 09/19/21 09/20/21 09/20/21 22:59 06:59 14:59 Intake Total 180 600 118 Output Total 400 400 400 Balance -220 200 -282 Intake: Intake, IV Titration 600 Amount Sodium Chloride 0.9% 1, 600 000 ml @ 75 mls/hr IV . [id number] [facility] Rx#:[id number] Oral 180 118 Output: Urine 400 400 400 Other: Voiding Method Urinal Urinal Urinal Diaper Diaper Diaper # Voids 2 Weight 157 kg GENERAL EXAM: Alert, very pleasant, 70-year-old white male 2 L of oxygen and pulse ox of 94% omfortable in no apparent distress. HEAD: Normocephalic/atraumatic. EYES: Normal reaction of pupils, equal size. Conjunctiva pink, sclera white. NOSE: Clear with pink turbinates. THROAT: No erythema or exudates. NECK: No masses, no JVD, no thyroid enlargement, no adenopathy. CHEST: No chest wall deformity. Symmetrical expansion. LUNGS: Equal air entry with no crackles, wheeze, rhonchi or dullness. CVS: Irregular rate and rhythm, normal S1 and S2, no gallops, no murmurs, no rubs ABDOMEN: Soft, nontender. No hepatosplenomegaly, normal bowel sounds, no guarding or rigidity. EXTREMITIES: No clubbing, no edema, no cyanosis, 2+ pulses and upper and lower extremities. MUSCULOSKELETAL: Muscle strength and tone normal. SPINE: No scoliosis or deformity SKIN: No rashes CENTRAL NERVOUS SYSTEM: Alert and oriented -3. No focal deficits, tone is normal in all 4 extremities. PSYCHIATRIC: Alert and oriented -3. Appropriate affect. Intact judgment and insight. Results - Laboratory Findings CBC and BMP: 09/20/21 06:01 09/20/21 06:01 PT/INR, D-dimer PT 25.1 sec (9.0-12.0) H 09/20/21 06:01 INR 2.5 (<1.2) H 09/20/21 06:01 Abnormal lab findings: Abnormal Labs 09/18/21 09/18/21 09/18/21 21:10 21:10 21:10 WBC RBC Hgb MCV MCHC Neutrophils # Lymphocytes # 0.7 L PT 21.2 H INR 2.1 H APTT 38.9 H Sodium 136 L BUN Glucose POC Glucose (mg/dL) Troponin I Urine Protein Influenza Type A (PCR) 09/18/21 09/18/21 09/18/21 21:10 21:10 22:57 WBC RBC Hgb MCV MCHC Neutrophils # Lymphocytes # PT INR APTT Sodium BUN Glucose POC Glucose (mg/dL) Troponin I 0.035 H* Urine Protein Trace H Influenza Type A (PCR) Detected A 09/18/21 09/19/21 09/19/21 23:55 03:00 03:00 WBC RBC 4.21 L Hgb MCV 101.4 H MCHC Neutrophils # Lymphocytes # 0.4 L PT INR APTT Sodium BUN Glucose POC Glucose (mg/dL) Troponin I 0.043 H* 0.047 H* Urine Protein Influenza Type A (PCR) 09/19/21 09/19/21 09/19/21 03:00 06:52 06:54 WBC RBC Hgb MCV MCHC Neutrophils # Lymphocytes # PT 19.7 H INR 1.9 H APTT Sodium 135 L BUN 21 H Glucose 236 H POC Glucose (mg/dL) 205 H Troponin I Urine Protein Influenza Type A (PCR) 09/19/21 09/19/21 09/19/21 11:58 16:44 20:12 WBC RBC Hgb MCV MCHC Neutrophils # Lymphocytes # PT INR APTT Sodium BUN Glucose POC Glucose (mg/dL) 183 H 161 H 205 H Troponin I Urine Protein Influenza Type A (PCR) 09/20/21 09/20/21 09/20/21 06:01 06:01 06:01 WBC 13.0 H RBC 4.10 L Hgb 12.8 L MCV 102.7 H MCHC 30.4 L Neutrophils # 11.6 H Lymphocytes # 0.6 L PT 25.1 H INR 2.5 H APTT Sodium BUN 38 H Glucose 145 H POC Glucose (mg/dL) Troponin I Urine Protein Influenza Type A (PCR) 09/20/21 09/20/21 06:07 11:50 WBC RBC Hgb MCV MCHC Neutrophils # Lymphocytes # PT INR APTT Sodium BUN Glucose POC Glucose (mg/dL) 140 H 185 H Troponin I Urine Protein Influenza Type A (PCR) - Diagnostic Findings Chest x-ray: report reviewed, image reviewed Additional studies: CT of the brain without, CT of the abdomen and pelvis reviewed Assessment and Plan Plan: Assessment: #1. Acute influenza A infection #2. Acute exacerbation of COPD #3. Acute exacerbation of CHF with systolic dysfunction #4. Chronic persistent atrial fibrillation on long-term anticoagulation with Coumadin #5. Status post permanent pacemaker implantation #7. Dyslipidemia #8. Diabetes mellitus type 2 #9. Severe COPD with a baseline FEV1 of 51% of predicted, stage III #10. History of aortic valve replacement #11. Former smoker Plan: Continue diuretics Continue nebulized bronchodilators Agree with Tamiflu Continue oral anticoagulation pharmacist dose GI and DVT prophylaxis We'll continue to follow patient's clinical course I have personally seen and examined the patient, performed the documentation and the assessment and plan as written. Number of minutes spent on the visit: [15] Time with Patient: Greater than 30
[2021-09-20 15:26] VITALS: BMI 52.6
[2021-09-20 16:49] LABS: Glucose,Whole Blood 119 mg/dL (75-99)
[2021-09-20] MEDS: buPROPion XL 300 MG TAB.ER.24H PO SCH (17:33)
[2021-09-20 19:32] LABS: Glucose,Whole Blood 196 mg/dL (75-99)
[2021-09-20] MEDS: OLANZapine 10 MG TAB PO SCH (20:29)
[2021-09-20] MEDS: ATORVASTATIN 40 MG TAB PO SCH (20:29)
[2021-09-20] MEDS: tiZANidine 4 MG TAB PO SCH (20:29)
[2021-09-20] MEDS ORDERED: WARFARIN 5 MG TAB PO ONE (21:00)
--- NOTE | 2021-09-20 23:08 | P.PN ---
Subjective Progress Note Date: 09/20/21 He remains on 2 LPM O2 today, feels his breathing is improved from the weekend. Continues on tamiflu. He denies cough, fever, sweats. Objective - Vital Signs Vital signs: Vital Signs Temp 98.1 F 09/20/21 08:00 Pulse 76 09/20/21 20:04 Resp 18 09/20/21 17:23 BP 136/84 09/20/21 12:00 Pulse Ox 94 L 09/20/21 12:00 Intake & Output 09/20/21 09/20/21 09/21/21 06:59 18:59 06:59 Intake Total 600 118 Output Total 800 1250 Balance -200 -1132 Weight 157 kg 157 kg Intake: Intake, IV Titration 600 Amount Sodium Chloride 0.9% 1, 600 000 ml @ 75 mls/hr IV . [id number] [facility] Rx#:[id number] Oral 118 Output: Urine 800 1250 Other: Voiding Method Urinal Urinal Diaper Diaper # Voids 2 2 # Bowel Movements 1 - Exam General: well nourished, well developed, obese, NAD. Vitals reviewed Lungs: normal respiratory effort, no wheezes or rales. On 2 LPM O2 CV: Regular rate and rhythm, no murmur. Peripheral pulses 2+ Abdomen: soft, nondistended, no organomegaly Skin: warm and dry. - Labs CBC & Chem 7: 09/20/21 06:01 09/20/21 06:01 Labs: Abnormal Lab Results - Last 24 Hours (Table) 09/20/21 09/20/21 09/20/21 Range/Units 06:01 06:01 06:01 WBC 13.0 H (3.8-10.6) k/uL RBC 4.10 L (4.30-5.90) m/uL Hgb 12.8 L (13.0-17.5) gm/dL MCV 102.7 H (80.0-100.0) fL MCHC 30.4 L (31.0-37.0) g/dL Neutrophils # 11.6 H (1.3-7.7) k/uL Lymphocytes # 0.6 L (1.0-4.8) k/uL PT 25.1 H (9.0-12.0) sec INR 2.5 H (<1.2) BUN 38 H (9-20) mg/dL Glucose 145 H (74-99) mg/dL POC Glucose (mg/dL) (75-99) mg/dL 09/20/21 09/20/21 09/20/21 Range/Units 06:07 11:50 16:47 WBC (3.8-10.6) k/uL RBC (4.30-5.90) m/uL Hgb (13.0-17.5) gm/dL MCV (80.0-100.0) fL MCHC (31.0-37.0) g/dL Neutrophils # (1.3-7.7) k/uL Lymphocytes # (1.0-4.8) k/uL PT (9.0-12.0) sec INR (<1.2) BUN (9-20) mg/dL Glucose (74-99) mg/dL POC Glucose (mg/dL) 140 H 185 H 119 H (75-99) mg/dL 09/20/21 Range/Units 19:30 WBC (3.8-10.6) k/uL RBC (4.30-5.90) m/uL Hgb (13.0-17.5) gm/dL MCV (80.0-100.0) fL MCHC (31.0-37.0) g/dL Neutrophils # (1.3-7.7) k/uL Lymphocytes # (1.0-4.8) k/uL PT (9.0-12.0) sec INR (<1.2) BUN (9-20) mg/dL Glucose (74-99) mg/dL POC Glucose (mg/dL) 196 H (75-99) mg/dL Microbiology - Last 24 Hours (Table) 09/18/21 20:50 Blood Culture - Preliminary Blood No Growth after 24 hours 09/18/21 21:05 Blood Culture - Preliminary Blood No Growth after 24 hours Assessment and Plan Plan: Continue with tamiflu, IV steroids. Continue duonebs. Pulmonoogy following. Continue cardiac medications at home dosage.
[2021-09-21] MEDS: SODIUM CHLORIDE 0.9% 1,000 ML IV SCH ×2 (02:03→12:42)
[2021-09-21] MEDS: IPRATROPIUM-ALBUTEROL 3 ML NEB INHALATION SCH ×5 (03:21→19:26)
[2021-09-21 06:00] LABS: Glucose,Whole Blood 125 mg/dL (75-99)
[2021-09-21] MEDS: INSULIN ASPART (NovoLOG) 100 UNIT/ML VIAL SQ SCH ×4 (06:18→21:20)
[2021-09-21] MEDS: methylPREDNISolone SOD SUCCI 40 MG/ML 1 ML VIAL IV SCH ×4 (06:22→23:39)
[2021-09-21] MEDS: SYMBICORT 160-4.5 MCG INHALER INHALATION SCH ×2 (07:41→19:26)
[2021-09-21 07:58] LABS: Basophils % (A) 0 %; Eosinophils # (A) 0.1 k/uL (0-0.7); Eosinophils % (A) 1 %; HCT 42.6 % (39.0-53.0); HGB 12.8 gm/dL (13.0-17.5); Hypochromasia Moderate; Lymphocytes # (A) 0.7 k/uL (1.0-4.8); Lymphocytes % (A) 5 %; MCH 30.9 pg (25.0-35.0); Macrocytosis Slight; Mean Platelet Volume 7.4; Monocytes # (A) 0.6 k/uL (0-1.0); Monocytes % (A) 4 %; Neutrophils # (A) 12.2 k/uL (1.3-7.7); Neutrophils % (A) 90 %; Platelet Count 264 k/uL (150-450); RBC 4.14 m/uL (4.30-5.90); RDW 13.4 % (11.5-15.5); WBC 13.6 k/uL (3.8-10.6)
[2021-09-21 08:06] LABS: African American GFR (CKD) >90 (>60 ml/min/1.73 sqM); Anion Gap 8 mmol/L; Blood Urea Nitrogen 42 mg/dL (9-20); Calcium 8.7 mg/dL (8.4-10.2); Carbon Dioxide 25 mmol/L (22-30); Chloride 106 mmol/L (98-107); Glucose 165 mg/dL (74-99); Non-African American GFR(CKD) 88 (>60 ml/min/1.73 sqM); Potassium 4.6 mmol/L (3.5-5.1); Sodium 139 mmol/L (137-145)
[2021-09-21 08:12] LABS: INR 4.1 (<1.2); Prothrombin Time 40.8 sec (9.0-12.0)
--- NOTE | 2021-09-21 08:22 | XR ---
EXAMINATION TYPE: XR chest 1V portable DATE OF EXAM: 09/21/2021 COMPARISON: NONE HISTORY: Shortness of breath TECHNIQUE: Single frontal view of the chest is obtained. FINDINGS: Heart size is prominent there is a cardiac device and postsurgical changes. Coarsened inte rstitium subsegmental changes left base. Arthropathy of the shoulders and postsurgical change left hu merus. IMPRESSION: Cardiomegaly correlate for chronic interstitial lung disease. Basilar atelectasis favore d over pneumonia
[2021-09-21] MEDS: FUROSEMIDE 40 MG TAB PO SCH (09:47)
[2021-09-21] MEDS: metFORMIN 500 MG TAB PO SCH (09:47)
[2021-09-21] MEDS: TAMSULOSIN 0.4 MG CAP.ER.24H PO SCH (09:47)
[2021-09-21] MEDS: CYANOCOBALAMIN 500 MCG TAB PO SCH (09:47)
[2021-09-21] MEDS: METOPROLOL TARTRATE 50 MG TAB PO SCH ×2 (09:47→18:15)
[2021-09-21] MEDS: lisinopriL 20 MG TAB PO SCH (09:47)
[2021-09-21] MEDS: OSELTAMIVIR 75 MG CAP PO SCH ×2 (09:48→20:33)
[2021-09-21] MEDS ORDERED: ONDANSETRON 4 MG/2 ML VIAL IVP PRN (10:01)
[2021-09-21] MEDS ORDERED: ACETAMINOPHEN TAB 325 MG TAB PO PRN (10:01)
--- NOTE | 2021-09-21 11:37 | P.PN ---
Subjective Progress Note Date: 09/21/21 This is a 70-year-old gentleman admitted with acute hypoxic respiratory failure secondary to acute influenza A, acute COPD exacerbation, acute systolic CHF dysfunction and multiple other medical issues. Maintaining O2 sats in the 90s on 3 L nasal cannula. Complains of headache, nausea, mild shortness of breath and interrupted sleep. Maintained on Tamiflu, diuretics, nebulized bronchodilators. Afebrile, WBC 13.6. Coumadin as per pharmacy dosing, INR currently incr. to. 4.1. BUN increased to 42, creatinine decreasing ,0.85. Objective - Vital Signs Vital signs: Vital Signs Temp 97.0 F L 09/21/21 04:00 Pulse 80 09/21/21 07:49 Resp 18 09/21/21 04:00 BP 142/78 09/21/21 04:00 Pulse Ox 97 09/21/21 04:00 Intake & Output 09/20/21 09/21/21 09/21/21 18:59 06:59 18:59 Intake Total 118 118 Output Total 1250 Balance -1132 118 Weight 157 kg 138.3 kg Intake: Oral 118 118 Output: Urine 1250 Other: Voiding Method Urinal Urinal Diaper # Voids 2 2 # Bowel Movements 1 - Exam - Exam General: obese, sitting up in chair, NAD. Vitals reviewed Lungs: normal respiratory effort, no wheezes or rales. CV: Regular rate and rhythm, no murmur. Peripheral pulses 2+ Abdomen: soft, nondistended, no organomegaly Skin: warm and dry. - Labs CBC & Chem 7: 09/21/21 07:42 09/21/21 07:42 Labs: Abnormal Lab Results - Last 24 Hours (Table) 09/20/21 09/20/21 09/20/21 Range/Units 11:50 16:47 19:30 WBC (3.8-10.6) k/uL RBC (4.30-5.90) m/uL Hgb (13.0-17.5) gm/dL MCV (80.0-100.0) fL MCHC (31.0-37.0) g/dL Neutrophils # (1.3-7.7) k/uL Lymphocytes # (1.0-4.8) k/uL PT (9.0-12.0) sec INR (<1.2) BUN (9-20) mg/dL Glucose (74-99) mg/dL POC Glucose (mg/dL) 185 H 119 H 196 H (75-99) mg/dL 09/21/21 09/21/21 09/21/21 Range/Units 05:58 07:42 07:42 WBC 13.6 H (3.8-10.6) k/uL RBC 4.14 L (4.30-5.90) m/uL Hgb 12.8 L (13.0-17.5) gm/dL MCV 103.0 H (80.0-100.0) fL MCHC 30.0 L (31.0-37.0) g/dL Neutrophils # 12.2 H (1.3-7.7) k/uL Lymphocytes # 0.7 L (1.0-4.8) k/uL PT 40.8 H (9.0-12.0) sec INR 4.1 H (<1.2) BUN (9-20) mg/dL Glucose (74-99) mg/dL POC Glucose (mg/dL) 125 H (75-99) mg/dL 09/21/21 Range/Units 07:42 WBC (3.8-10.6) k/uL RBC (4.30-5.90) m/uL Hgb (13.0-17.5) gm/dL MCV (80.0-100.0) fL MCHC (31.0-37.0) g/dL Neutrophils # (1.3-7.7) k/uL Lymphocytes # (1.0-4.8) k/uL PT (9.0-12.0) sec INR (<1.2) BUN 42 H (9-20) mg/dL Glucose 165 H (74-99) mg/dL POC Glucose (mg/dL) (75-99) mg/dL Microbiology - Last 24 Hours (Table) 09/18/21 20:50 Blood Culture - Preliminary Blood No Growth after 48 hours 09/18/21 21:05 Blood Culture - Preliminary Blood No Growth after 48 hours Assessment and Plan Assessment: Acute hypoxic respiratory failure secondary to acute systolic CHF exacerbation, acute COPD exacerbation and acute influenza A History of advanced COPD History of aortic valve replacement Chronic persistent atrial fibrillation, on Coumadin Permanent pacemaker implantation, history of Prior nicotine dependence Morbid obesity, BMI 46.4. Plan: Continue on current medication regime ,monitoring and symptomatic treatment. Chest x-ray pending.Aggressive pulmonary toileting with nebulized bronchodilators, diuretics and Tamiflu. Continue weaning down oxygen with discharge planning soon. Tylenol, Zofran as to medication regimen. The impression and plan of care has been dictated as directed. : I performed a history and examination of this patient, discussed the same with the dictator. I agree with the dictator's note ,documented as a scribe. Any additional findings or plans will be noted.
--- NOTE | 2021-09-21 11:50 | P.PN ---
Subjective Progress Note Date: 09/21/21 Principal diagnosis: Shortness of breath. 30-year-old male patient with past history of hypertension, diabetes mellitus type 2, atrial fibrillation on Coumadin, obstructive sleep apnea on CPAP, DJD, previous history of pacemaker placement, chronic and ongoing history of smoking, valvular heart disease, who presented to the emergency department on 09/18/2021 with complaints of progressive weakness over the past 4-5 days. Describes it as generalized weakness, particularly in the lower extremities. Patient suffered a fall at home, however denied any trauma to his head. No loss of consciousness. Reports some mild shortness of breath, but denied any cough, no fever or chills. Patient is status post completed vaccination for COVID-19, and influenza. No lower extremity edema, no complaints of chest discomfort, no phlegm production, no hemoptysis. Patient was recently hospitalized for fever, that was suspected to be due to acute urinary tract infection. Urine cultures from that admission and blood cultures had shown no growth. During that time patient was also similarly weak. Patient was discharged home on 08/20/2021. Chest x-ray showed cardiomegaly, mild fibrotic pulmonary changes, no pulmonary consolidation. Lab evaluation showed lymphocyte count of 0.7, the rest of the CBC was within normal limits, white blood cell count is 9.1, hemoglobin was 14.2, INR was 2.1, sodium is 136, Duricef electrolytes and renal profile were within normal limits, lactic acid was 1.6, troponins were 0.035, 0.043, 0.047, proBNP was 1770, urinalysis showed trace protein but no evidence of infection, RSV, COVID-19 and influenza B were negative, however patient did test positive for influenza A. patient was started on nebulized and inhaled bronchodilators, she was started on Tamiflu for a total of 5 day course, she was also started on IV Solu-Medrol 40 mg every 6 ho urs. Progress note dated 09/21/2021. This is a 70-year-old male who is seen today in room 372. The patient was admitted with a diagnosis of shortness of breath, and weakness. He states he could not really stand up on his own. He came into the emergency room, where he was evaluated, and did test positive for influenza A. He was started on Tamiflu, 75 mg twice a day, for 5 days. He states today, he's feeling about the same, no better, and no worse. Currently laboratory data includes a white count of 13.6, hemoglobin 12.8, hematocrit 42.6, and platelet count 264,000. PTT was 40.8 with an INR of 4.1. Sodium 139, potassium 4.6, chlorides 106, CO2 25, anion gap 8, BUN 42, and creatinine 0.85. Chest x-ray shows cardiomegaly, and diffuse interstitial changes, consistent with possible viral pneumonia. Objective - Vital Signs Vital signs: Vital Signs Temp 97.9 F 09/21/21 08:00 Pulse 62 09/21/21 08:00 Resp 18 09/21/21 08:00 BP 125/66 09/21/21 08:00 Pulse Ox 96 09/21/21 08:00 Intake & Output 09/20/21 09/21/21 09/21/21 18:59 06:59 18:59 Intake Total 118 358 Output Total 1250 Balance -1132 358 Weight 157 kg 138.3 kg Intake: Oral 118 358 Output: Urine 1250 Other: Voiding Method Urinal Urinal Urinal Diaper # Voids 2 2 # Bowel Movements 1 - Exam No acute distress, oriented 3. Currently on 3 L nasal cannula with saturations of 96%. No conversational dyspnea or use of accessory muscles. HEENT examination is grossly unremarkable. Neck supple. Full range of motion. No adenopathy thyromegaly or neck vein distention. Cardiovascular examination reveals regular rhythm rate. S1-S2 normal. No S3 or S4. No discernible murmur noted. Heart rate 62 bpm. Lungs reveal scattered expiratory wheezes and scattered rhonchi. No crackles. Breath sounds equal bilaterally. Abdomen soft bowel sounds are heard. No masses or tenderness. Extremities are intact. No cyanosis clubbing or edema. Skin is without rash or lesion. Neurologic examination is brief but nonfocal. - Labs CBC & Chem 7: 09/21/21 07:42 09/21/21 07:42 Labs: Abnormal Lab Results - Last 24 Hours (Table) 09/20/21 09/20/21 09/20/21 Range/Units 11:50 16:47 19:30 WBC (3.8-10.6) k/uL RBC (4.30-5.90) m/uL Hgb (13.0-17.5) gm/dL MCV (80.0-100.0) fL MCHC (31.0-37.0) g/dL Neutrophils # (1.3-7.7) k/uL Lymphocytes # (1.0-4.8) k/uL PT (9.0-12.0) sec INR (<1.2) BUN (9-20) mg/dL Glucose (74-99) mg/dL POC Glucose (mg/dL) 185 H 119 H 196 H (75-99) mg/dL 09/21/21 09/21/21 09/21/21 Range/Units 05:58 07:42 07:42 WBC 13.6 H (3.8-10.6) k/uL RBC 4.14 L (4.30-5.90) m/uL Hgb 12.8 L (13.0-17.5) gm/dL MCV 103.0 H (80.0-100.0) fL MCHC 30.0 L (31.0-37.0) g/dL Neutrophils # 12.2 H (1.3-7.7) k/uL Lymphocytes # 0.7 L (1.0-4.8) k/uL PT 40.8 H (9.0-12.0) sec INR 4.1 H (<1.2) BUN (9-20) mg/dL Glucose (74-99) mg/dL POC Glucose (mg/dL) 125 H (75-99) mg/dL 09/21/21 Range/Units 07:42 WBC (3.8-10.6) k/uL RBC (4.30-5.90) m/uL Hgb (13.0-17.5) gm/dL MCV (80.0-100.0) fL MCHC (31.0-37.0) g/dL Neutrophils # (1.3-7.7) k/uL Lymphocytes # (1.0-4.8) k/uL PT (9.0-12.0) sec INR (<1.2) BUN 42 H (9-20) mg/dL Glucose 165 H (74-99) mg/dL POC Glucose (mg/dL) (75-99) mg/dL Microbiology - Last 24 Hours (Table) 09/18/21 20:50 Blood Culture - Preliminary Blood No Growth after 48 hours 09/18/21 21:05 Blood Culture - Preliminary Blood No Growth after 48 hours Assessment and Plan Assessment: Acute influenza A infection, and possible viral pneumonia. COPD exacerbation. Acute exacerbation of CHF, with systolic dysfunction. Chronic atrial fibrillation. Status post permanent pacemaker implantation. Hyperlipidemia. Diabetes mellitus, type II. Severe COPD, with an FEV1 that's 51% of predicted. History of aortic valve replacement. Obesity. Former smoker. Plan: Plan dated 09/21/2021. The patient continues on appropriate medications including bronchodilators, and Tamiflu. The patient continues on GI and DVT prophylaxis. The patient is also on Symbicort, 160/4.5, 2 puffs twice a day, and Solu-Medrol, 40 mg every 6 hours. Additional recommendations and suggestions are forthcoming. Prognosis is guarded. Labs, x-rays, and medications are reviewed. Prognosis is guarded. We will continue to follow the patient and make recommendations where appropriate. Time with Patient: Less than 30
[2021-09-21 12:10] LABS: Glucose,Whole Blood 133 mg/dL (75-99)
[2021-09-21 16:43] LABS: Glucose,Whole Blood 132 mg/dL (75-99)
[2021-09-21] MEDS ORDERED: WARFARIN 0.5 MG TAB PO ONE (18:00)
[2021-09-21] MEDS: buPROPion XL 300 MG TAB.ER.24H PO SCH (18:15)
[2021-09-21] MEDS: tiZANidine 4 MG TAB PO SCH (20:33)
[2021-09-21] MEDS: ATORVASTATIN 40 MG TAB PO SCH (20:33)
[2021-09-21] MEDS: OLANZapine 10 MG TAB PO SCH (20:33)
[2021-09-21] MEDS ORDERED: IPRATROPIUM-ALBUTEROL 3 ML NEB INHALATION PRN (20:38)
[2021-09-21 21:09] LABS: Glucose,Whole Blood 128 mg/dL (75-99)
[2021-09-22] MEDS: SODIUM CHLORIDE 0.9% 1,000 ML IV SCH ×2 (05:53→16:58)
[2021-09-22 06:31] LABS: Glucose,Whole Blood 142 mg/dL (75-99)
[2021-09-22] MEDS: INSULIN ASPART (NovoLOG) 100 UNIT/ML VIAL SQ SCH ×4 (06:50→20:52)
[2021-09-22] MEDS: methylPREDNISolone SOD SUCCI 40 MG/ML 1 ML VIAL IV SCH ×2 (06:50→11:39)
[2021-09-22 06:53] LABS: INR 4.2 (<1.2); Prothrombin Time 41.7 sec (9.0-12.0)
[2021-09-22] MEDS: SYMBICORT 160-4.5 MCG INHALER INHALATION SCH ×2 (07:48→20:14)
[2021-09-22] MEDS: IPRATROPIUM-ALBUTEROL 3 ML NEB INHALATION SCH ×4 (07:48→20:14)
[2021-09-22] MEDS: METOPROLOL TARTRATE 50 MG TAB PO SCH ×2 (09:06→18:05)
[2021-09-22] MEDS: TAMSULOSIN 0.4 MG CAP.ER.24H PO SCH (09:06)
[2021-09-22] MEDS: lisinopriL 20 MG TAB PO SCH (09:06)
[2021-09-22] MEDS: FUROSEMIDE 40 MG TAB PO SCH (09:06)
[2021-09-22] MEDS: CYANOCOBALAMIN 500 MCG TAB PO SCH (09:06)
[2021-09-22] MEDS: metFORMIN 500 MG TAB PO SCH (09:06)
[2021-09-22] MEDS: OSELTAMIVIR 75 MG CAP PO SCH ×2 (09:07→20:51)
--- NOTE | 2021-09-22 10:59 | P.PN ---
Subjective Progress Note Date: 09/22/21 Principal diagnosis: Shortness of breath. 30-year-old male patient with past history of hypertension, diabetes mellitus type 2, atrial fibrillation on Coumadin, obstructive sleep apnea on CPAP, DJD, previous history of pacemaker placement, chronic and ongoing history of smoking, valvular heart disease, who presented to the emergency department on 09/18/2021 with complaints of progressive weakness over the past 4-5 days. Describes it as generalized weakness, particularly in the lower extremities. Patient suffered a fall at home, however denied any trauma to his head. No loss of consciousness. Reports some mild shortness of breath, but denied any cough, no fever or chills. Patient is status post completed vaccination for COVID-19, and influenza. No lower extremity edema, no complaints of chest discomfort, no phlegm production, no hemoptysis. Patient was recently hospitalized for fever, that was suspected to be due to acute urinary tract infection. Urine cultures from that admission and blood cultures had shown no growth. During that time patient was also similarly weak. Patient was discharged home on 08/20/2021. Chest x-ray showed cardiomegaly, mild fibrotic pulmonary changes, no pulmonary consolidation. Lab evaluation showed lymphocyte count of 0.7, the rest of the CBC was within normal limits, white blood cell count is 9.1, hemoglobin was 14.2, INR was 2.1, sodium is 136, Duricef electrolytes and renal profile were within normal limits, lactic acid was 1.6, troponins were 0.035, 0.043, 0.047, proBNP was 1770, urinalysis showed trace protein but no evidence of infection, RSV, COVID-19 and influenza B were negative, however patient did test positive for influenza A. patient was started on nebulized and inhaled bronchodilators, she was started on Tamiflu for a total of 5 day course, she was also started on IV Solu-Medrol 40 mg every 6 ho urs. Progress note dated 09/21/2021. This is a 70-year-old male who is seen today in room 372. The patient was admitted with a diagnosis of shortness of breath, and weakness. He states he could not really stand up on his own. He came into the emergency room, where he was evaluated, and did test positive for influenza A. He was started on Tamiflu, 75 mg twice a day, for 5 days. He states today, he's feeling about the same, no better, and no worse. Currently laboratory data includes a white count of 13.6, hemoglobin 12.8, hematocrit 42.6, and platelet count 264,000. PTT was 40.8 with an INR of 4.1. Sodium 139, potassium 4.6, chlorides 106, CO2 25, anion gap 8, BUN 42, and creatinine 0.85. Chest x-ray shows cardiomegaly, and diffuse interstitial changes, consistent with possible viral pneumonia. Progress note dated 09/22/2021. 70-year-old male, seen today in room 372. He remains on a couple liters of oxygen. The patient's doing much better. Much less short of breath. He was admitted with a diagnosis of influenza A infection. He was started on Tamiflu. In my opinion, the patient could be considered for possible discharge. Patient's labs, x-rays, and medications are all reviewed. No new labs today other than a PTT of 41.7, a INR of 4.2, and a glucose of 142. Chest x-ray from yesterday showed evidence of cardiomegaly, and some diffuse interstitial changes, either consistent with interstitial edema, or interstitial pneumonia. Objective - Vital Signs Vital signs: Vital Signs Temp 97.7 F 09/22/21 08:00 Pulse 68 09/22/21 08:01 Resp 18 09/22/21 08:00 BP 140/68 09/22/21 08:00 Pulse Ox 99 09/22/21 07:51 Intake & Output 09/21/21 09/22/21 09/22/21 18:59 06:59 18:59 Intake Total 1198 200 236 Balance 1198 200 236 Weight 138.5 kg Intake: Oral 1198 200 236 Other: Voiding Method Urinal Urinal Urinal # Voids 1 2 - Exam No acute distress, oriented 3. Currently on 3 L nasal cannula with saturations of 99%. No conversational dyspnea or use of accessory muscles. HEENT examination is grossly unremarkable. Neck supple. Full range of motion. No adenopathy thyromegaly or neck vein distention. Cardiovascular examination reveals regular rhythm rate. S1-S2 normal. No S3 or S4. No discernible murmur noted. Heart rate 68 bpm. Lungs reveal scattered expiratory wheezes and scattered rhonchi. No crackles. Breath sounds equal bilaterally. Abdomen soft bowel sounds are heard. No masses or tenderness. Extremities are intact. No cyanosis clubbing or edema. Skin is without rash or lesion. Neurologic examination is brief but nonfocal. - Labs CBC & Chem 7: 09/21/21 07:42 09/21/21 07:42 Labs: Abnormal Lab Results - Last 24 Hours (Table) 09/21/21 09/21/21 09/21/21 Range/Units 12:08 16:32 21:07 PT (9.0-12.0) sec INR (<1.2) POC Glucose (mg/dL) 133 H 132 H 128 H (75-99) mg/dL 09/22/21 09/22/21 Range/Units 06:13 06:29 PT 41.7 H (9.0-12.0) sec INR 4.2 H (<1.2) POC Glucose (mg/dL) 142 H (75-99) mg/dL Microbiology - Last 24 Hours (Table) 09/18/21 20:50 Blood Culture - Preliminary Blood No Growth after 72 hours 09/18/21 21:05 Blood Culture - Preliminary Blood No Growth after 72 hours Assessment and Plan Assessment: Acute influenza A infection, and possible viral pneumonia. COPD exacerbation. Acute exacerbation of CHF, with systolic dysfunction. Chronic atrial fibrillation. Status post permanent pacemaker implantation. Hyperlipidemia. Diabetes mellitus, type II. Severe COPD, with an FEV1 that's 51% of predicted. History of aortic valve replacement. Obesity. Former smoker. Plan: Plan dated 09/21/2021. The patient continues on appropriate medications including bronchodilators, and Tamiflu. The patient continues on GI and DVT prophylaxis. The patient is also on Symbicort, 160/4.5, 2 puffs twice a day, and Solu-Medrol, 40 mg every 6 hours. Additional recommendations and suggestions are forthcoming. Prognosis is guarded. Labs, x-rays, and medications are reviewed. Prognosis is guarded. We will continue to follow the patient and make recommendations where appropriate. Plan dated 09/22/2021. The patient appears to be doing relatively well. Patient's currently on 3 L. Saturations are 99%. The oxygen can be weaned down. The patient apparently is not on any oxygen at home. He continues on Tamiflu for a total of 5 days. He apparently states that he might be discharged tomorrow. The patient continues on GI and DVT prophylaxis. Solu-Medrol can be converted to a small dose of prednisone maybe 20 or 30 mg a day. Labs, x-rays, and medications are reviewed. We will continue to follow. Prognosis is guarded. Time with Patient: Less than 30
[2021-09-22 11:32] LABS: Glucose,Whole Blood 211 mg/dL (75-99)
--- NOTE | 2021-09-22 14:37 | P.PN ---
Subjective Progress Note Date: 09/22/21 This is a 70-year-old gentleman admitted with acute hypoxic respiratory failure secondary to acute influenza A, acute COPD exacerbation, acute systolic CHF dysfunction and multiple other medical issues. Maintaining O2 sats in the 90s on 3 L nasal cannula. Complains of headache, nausea, mild shortness of breath and interrupted sleep. Maintained on Tamiflu, diuretics, nebulized bronchodilators. Afebrile, WBC 13.6. Coumadin as per pharmacy dosing, INR currently incr. to. 4.1. BUN increased to 42, creatinine decreasing ,0.85. 09/22/2021 maintaining O2 sats of 99% on 3 L nasal cannula, decreased down to 2 L recently. Continues on Tamiflu for influenza A. afebrile. Coumadin on hold- INR increased to 4.2. Denies chest pain, palpitations or increased shortness of breath. Objective - Vital Signs Vital signs: Vital Signs Temp 97.9 F 09/22/21 12:00 Pulse 75 09/22/21 12:00 Resp 17 09/22/21 12:00 BP 136/62 09/22/21 12:00 Pulse Ox 95 09/22/21 12:00 Intake & Output 09/21/21 09/22/21 09/22/21 18:59 06:59 18:59 Intake Total 1198 200 716 Balance 1198 200 716 Weight 138.5 kg Intake: Oral 1198 200 716 Other: Voiding Method Urinal Urinal Urinal # Voids 1 2 1 - Exam - Exam General: obese, sitting up in chair, NAD. Vitals reviewed Lungs: normal respiratory effort, no wheezes or rales. CV: Regular rate and rhythm, no murmur. Peripheral pulses 2+ Abdomen: soft, nondistended, no organomegaly, + BS Skin: warm and dry. - Labs CBC & Chem 7: 09/21/21 07:42 09/21/21 07:42 Labs: Abnormal Lab Results - Last 24 Hours (Table) 09/21/21 09/21/21 09/22/21 Range/Units 16:32 21:07 06:13 PT 41.7 H (9.0-12.0) sec INR 4.2 H (<1.2) POC Glucose (mg/dL) 132 H 128 H (75-99) mg/dL 09/22/21 09/22/21 Range/Units 06:29 11:30 PT (9.0-12.0) sec INR (<1.2) POC Glucose (mg/dL) 142 H 211 H (75-99) mg/dL Microbiology - Last 24 Hours (Table) 09/18/21 20:50 Blood Culture - Preliminary Blood No Growth after 72 hours 09/18/21 21:05 Blood Culture - Preliminary Blood No Growth after 72 hours Assessment and Plan Assessment: Acute hypoxic respiratory failure secondary to acute systolic CHF exacerbation, acute COPD exacerbation and acute influenza A Hypercoagulopathy, Coumadin currently on hold with pharmacy dosing History of advanced COPD History of aortic valve replacement Chronic persistent atrial fibrillation Permanent pacemaker implantation, history of Prior nicotine dependence Morbid obesity, BMI 46.4. Plan: Continue on current medication regime ,monitoring and symptomatic treatment. Maintain aggressive pulmonary toileting with nebulized bronchodilators, diuretics and Tamiflu. Oxygen weaning in progress. discharge planning in progress for subacute rehab pending improving INR. The impression and plan of care has been dictated as directed. : I performed a history and examination of this patient, discussed the same with the dictator. I agree with the dictator's note ,documented as a scribe. Any additional findings or plans will be noted.
[2021-09-22 16:30] LABS: Glucose,Whole Blood 130 mg/dL (75-99)
[2021-09-22] MEDS ORDERED: WARFARIN 0.5 MG TAB PO ONE (18:00)
[2021-09-22] MEDS: buPROPion XL 300 MG TAB.ER.24H PO SCH (18:05)
[2021-09-22 20:09] LABS: Glucose,Whole Blood 176 mg/dL (75-99)
[2021-09-22] MEDS: tiZANidine 4 MG TAB PO SCH (20:51)
[2021-09-22] MEDS: ATORVASTATIN 40 MG TAB PO SCH (20:51)
[2021-09-22] MEDS: OLANZapine 10 MG TAB PO SCH (20:51)
[2021-09-22] MEDS ORDERED: methylPREDNISolone SOD SUCCI 40 MG/ML 1 ML VIAL IV SCH (21:00)
[2021-09-23 04:25] VITALS: TEMP 97.6
[2021-09-23 05:25] LABS: Glucose,Whole Blood 125 mg/dL (75-99)
[2021-09-23] MEDS: SODIUM CHLORIDE 0.9% 1,000 ML IV SCH (06:23)
[2021-09-23] MEDS: INSULIN ASPART (NovoLOG) 100 UNIT/ML VIAL SQ SCH ×2 (06:23→12:13)
[2021-09-23] MEDS: metFORMIN 500 MG TAB PO SCH (08:08)
[2021-09-23] MEDS: CYANOCOBALAMIN 500 MCG TAB PO SCH (08:08)
[2021-09-23] MEDS: METOPROLOL TARTRATE 50 MG TAB PO SCH (08:08)
[2021-09-23] MEDS: FUROSEMIDE 40 MG TAB PO SCH (08:08)
[2021-09-23] MEDS: lisinopriL 20 MG TAB PO SCH (08:08)
[2021-09-23] MEDS: OSELTAMIVIR 75 MG CAP PO SCH (08:09)
[2021-09-23] MEDS: TAMSULOSIN 0.4 MG CAP.ER.24H PO SCH (08:09)
[2021-09-23 08:23] LABS: INR 2.5 (<1.2); Prothrombin Time 25.4 sec (9.0-12.0)
[2021-09-23] MEDS: SYMBICORT 160-4.5 MCG INHALER INHALATION SCH (08:51)
[2021-09-23] MEDS: IPRATROPIUM-ALBUTEROL 3 ML NEB INHALATION SCH ×3 (08:51→15:41)
[2021-09-23] MEDS ORDERED: predniSONE 20 MG TAB PO SCH (09:00)
--- NOTE | 2021-09-23 09:19 | P.DS ---
Providers Date of admission: 09/18/21 23:26 Expected date of discharge: 09/23/21 Attending physician: Cory Goodman MD Consults: 09/19/21 10:04 Consult Physician Routine Consulting Provider: Teresa Anglin Consult Reason/Comments: COPD Do you want consulting provider notified?: Yes Primary care physician: Cory Goodman MD Hospital Course: Final Diagnoses: Acute hypoxic respiratory failure secondary to acute systolic CHF exacerbation, acute COPD exacerbation and acute influenza A Hypercoagulopathy, Coumadin held, this morning INR down to 2.5, will resume. History of advanced COPD History of aortic valve replacement Chronic persistent atrial fibrillation Permanent pacemaker implantation, history of Prior nicotine dependence Morbid obesity, BMI 46.4. Hospital course:This is a 70-year-old gentleman admitted with acute hypoxic respiratory failure secondary to acute influenza A, acute COPD exacerbation, acute systolic CHF dysfunction and multiple other medical issues. Maintaining O2 sats in the 90s on 3 L nasal cannula. Complains of headache, nausea, mild shortness of breath and interrupted sleep. Maintained on Tamiflu, diuretics, nebulized bronchodilators. Afebrile, WBC 13.6. Coumadin as per pharmacy dosing, INR currently incr. to. 4.1. BUN increased to 42, creatinine decreasing ,0.85. 09/22/2021 maintaining O2 sats of 99% on 3 L nasal cannula, decreased down to 2 L recently. Continues on Tamiflu for influenza A. afebrile. Coumadin on hold- INR increased to 4.2. Denies chest pain, palpitations or increased shortness of breath. Significant clinical improvement. Completed Tamiflu treatment. Maintaining O2 sats in the 90s on room air. Afebrile. INR down to 2.5, will resume Coumadin tonight. Based chest pain, palpitations or increased shortness of breath. Cleared by pulmonary for discharge. Patient will be discharged to subacute rehab today in a stable condition with guarded prognosis. The impression and plan of care has been dictated as directed. : I performed a history and examination of this patient, discussed the same with the dictator. I agree with the dictator's note ,documented as a scribe. Any additional findings or plans will be noted. Patient Condition at Discharge: Stable Plan - Discharge Summary New Discharge Prescriptions: New Furosemide [Lasix] 40 mg PO DAILY tab predniSONE 10 mg PO DIRECTED #30 tab INSULIN LISPRO (HumaLOG) [humaLOG] 0 unit SQ ACHS #10 ml Ipratropium-Albuterol Nebulize [Duoneb 0.5 mg-3 mg/3 ml Soln] 3 ml INHALATION RT-QID #120 ml Ipratropium-Albuterol Nebulize [Duoneb 0.5 mg-3 mg/3 ml Soln] 3 ml INHALATION Q4H PRN #120 ml PRN Reason: Shortness Of Breath Or Wheezing Continue metFORMIN HCL [Glucophage] 500 mg PO DAILY@0900 Atorvastatin [Lipitor] 40 mg PO HS@2100 Cyanocobalamin (Vitamin B-12) [Vitamin B-12] 1,000 mcg PO DAILY OLANZapine 10 mg PO HS@2100 modafiniL [Provigil] 400 mg PO DAILY@0900 metOLazone 2.5 mg PO MO Tamsulosin [Flomax] 0.4 mg PO DAILY #30 cap traMADol HCL 50 mg PO TID PRN #9 tab PRN Reason: Pain tiZANidine [Zanaflex] 2 mg PO HS@2100 Multivit-Min/FA/Lycopen/Lutein [Centrum Silver Men Tablet] 1 tab PO DAILY@0900 Metoprolol Tartrate [Lopressor] 50 mg PO BID@0900,1700 lisinopriL [Zestril] 20 mg PO DAILY@0900 Acetaminophen Tab [Tylenol] 500 mg PO Q6H PRN PRN Reason: Pain Or Fever > 100.5 buPROPion XL [Wellbutrin XL] 300 mg PO DAILY@1700 Fluticasone/Salmeterol [Advair Hfa 230-21 Mcg Inhaler] 1 puff INHALATION RT- DAILY Changed Warfarin [Coumadin] 5 mg PO HS@2100 #0 Discharge Medication List metFORMIN HCL [Glucophage] 500 mg PO DAILY@0900 10/15/14 [History] Atorvastatin [Lipitor] 40 mg PO HS@2100 11/23/16 [History] Cyanocobalamin (Vitamin B-12) [Vitamin B-12] 1,000 mcg PO DAILY 12/21/18 [History] Acetaminophen Tab [Tylenol] 500 mg PO Q6H PRN 08/25/21 [History] Metoprolol Tartrate [Lopressor] 50 mg PO BID@0900,1700 08/25/21 [History] Multivit-Min/FA/Lycopen/Lutein [Centrum Silver Men Tablet] 1 tab PO DAILY@0908/25/21 [History] OLANZapine 10 mg PO HS@209908/25/21 [History] buPROPion XL [Wellbutrin XL] 300 mg PO DAILY@1700 08/25/21 [History] lisinopriL [Zestril] 20 mg PO DAILY@0908/25/21 [History] metOLazone 2.5 mg PO MO 08/25/21 [History] modafiniL [Provigil] 400 mg PO DAILY@0908/25/21 [History] tiZANidine [Zanaflex] 2 mg PO HS@209908/25/21 [History] Tamsulosin [Flomax] 0.4 mg PO DAILY #30 cap 08/30/21 [Rx] Fluticasone/Salmeterol [Advair Hfa 230-21 Mcg Inhaler] 1 puff INHALATION RT- DAILY 09/18/21 [History] INSULIN LISPRO (HumaLOG) [humaLOG] 0 unit SQ ACHS #10 ml 09/22/21 [Rx] predniSONE 10 mg PO DIRECTED #30 tab 09/22/21 [Rx] Furosemide [Lasix] 40 mg PO DAILY tab 09/23/21 [Rx] Ipratropium-Albuterol Nebulize [Duoneb 0.5 mg-3 mg/3 ml Soln] 3 ml INHALATION Q4H PRN #120 ml 09/23/21 [Rx] Ipratropium-Albuterol Nebulize [Duoneb 0.5 mg-3 mg/3 ml Soln] 3 ml INHALATION RT-QID #120 ml 09/23/21 [Rx] Warfarin [Coumadin] 5 mg PO HS@2100 #0 09/23/21 [Rx] traMADol HCL 50 mg PO TID PRN #9 tab 09/23/21 [Rx] Follow up Appointment(s)/Referral(s): Cory Goodman MD [Primary Care Provider] - 1 Week (After DC from subacute rehab) Activity/Diet/Wound Care/Special Instructions: ROD: Daily PT/INR CBC, BMP in 3 days Discharge Disposition: TRANSFER TO SNF/ECF
[2021-09-23 09:44] VITALS: RESP 20
[2021-09-23 11:49] VITALS: BP 117/79
--- NOTE | 2021-09-23 11:52 | P.PN ---
Subjective Progress Note Date: 09/23/21 Principal diagnosis: Shortness of breath. 30-year-old male patient with past history of hypertension, diabetes mellitus type 2, atrial fibrillation on Coumadin, obstructive sleep apnea on CPAP, DJD, previous history of pacemaker placement, chronic and ongoing history of smoking, valvular heart disease, who presented to the emergency department on 09/18/2021 with complaints of progressive weakness over the past 4-5 days. Describes it as generalized weakness, particularly in the lower extremities. Patient suffered a fall at home, however denied any trauma to his head. No loss of consciousness. Reports some mild shortness of breath, but denied any cough, no fever or chills. Patient is status post completed vaccination for COVID-19, and influenza. No lower extremity edema, no complaints of chest discomfort, no phlegm production, no hemoptysis. Patient was recently hospitalized for fever, that was suspected to be due to acute urinary tract infection. Urine cultures from that admission and blood cultures had shown no growth. During that time patient was also similarly weak. Patient was discharged home on 08/20/2021. Chest x-ray showed cardiomegaly, mild fibrotic pulmonary changes, no pulmonary consolidation. Lab evaluation showed lymphocyte count of 0.7, the rest of the CBC was within normal limits, white blood cell count is 9.1, hemoglobin was 14.2, INR was 2.1, sodium is 136, Duricef electrolytes and renal profile were within normal limits, lactic acid was 1.6, troponins were 0.035, 0.043, 0.047, proBNP was 1770, urinalysis showed trace protein but no evidence of infection, RSV, COVID-19 and influenza B were negative, however patient did test positive for influenza A. patient was started on nebulized and inhaled bronchodilators, she was started on Tamiflu for a total of 5 day course, she was also started on IV Solu-Medrol 40 mg every 6 ho urs. Progress note dated 09/21/2021. This is a 70-year-old male who is seen today in room 372. The patient was admitted with a diagnosis of shortness of breath, and weakness. He states he could not really stand up on his own. He came into the emergency room, where he was evaluated, and did test positive for influenza A. He was started on Tamiflu, 75 mg twice a day, for 5 days. He states today, he's feeling about the same, no better, and no worse. Currently laboratory data includes a white count of 13.6, hemoglobin 12.8, hematocrit 42.6, and platelet count 264,000. PTT was 40.8 with an INR of 4.1. Sodium 139, potassium 4.6, chlorides 106, CO2 25, anion gap 8, BUN 42, and creatinine 0.85. Chest x-ray shows cardiomegaly, and diffuse interstitial changes, consistent with possible viral pneumonia. Progress note dated 09/22/2021. 70-year-old male, seen today in room 372. He remains on a couple liters of oxygen. The patient's doing much better. Much less short of breath. He was admitted with a diagnosis of influenza A infection. He was started on Tamiflu. In my opinion, the patient could be considered for possible discharge. Patient's labs, x-rays, and medications are all reviewed. No new labs today other than a PTT of 41.7, a INR of 4.2, and a glucose of 142. Chest x-ray from yesterday showed evidence of cardiomegaly, and some diffuse interstitial changes, either consistent with interstitial edema, or interstitial pneumonia. Progress note dated 09/23/2021. 70-year-old male seen today in room 372. Currently he is on room air. He was admitted with a diagnosis of influenza A, and weakness. He may have also had some viral pneumonia. The patient is completing his 5 days of Tamiflu. Currently, his INR is 2.5. This is therapeutic. The patient appears to be very comfortable. Is no evidence of any respiratory distress or difficulty. There is no use of accessory muscles or conversational dyspnea. Objective - Vital Signs Vital signs: Vital Signs Temp 97.6 F 09/23/21 04:00 Pulse 63 09/23/21 11:48 Resp 20 09/23/21 11:48 BP 117/79 09/23/21 11:48 Pulse Ox 93 L 09/23/21 11:48 Intake & Output 09/22/21 09/23/21 09/23/21 18:59 06:59 18:59 Intake Total 956 10 120 Balance 956 10 120 Weight 138 kg Intake: Intake, IV Titration 10 Amount Sodium Chloride 0.9% 1, 10 000 ml @ 75 mls/hr IV . [id number] [facility] Rx#:[id number] Oral 956 120 Other: Voiding Method Urinal Toilet Urinal # Voids 1 1 - Exam No acute distress, oriented 3. Currently on room air. Saturations are 93%. HEENT examination is grossly unremarkable. Neck supple. Full range of motion. No adenopathy thyromegaly or neck vein distention. Cardiovascular examination reveals regular rhythm rate. S1-S2 normal. No S3 or S4. No discernible murmur noted. Heart rate 63 bpm. Lungs reveal scattered expiratory wheezes and scattered rhonchi. No crackles. Breath sounds equal bilaterally. Abdomen soft bowel sounds are heard. No masses or tenderness. Extremities are intact. No cyanosis clubbing or edema. Skin is without rash or lesion. Neurologic examination is brief but nonfocal. - Labs CBC & Chem 7: 09/21/21 07:42 09/21/21 07:42 Labs: Abnormal Lab Results - Last 24 Hours (Table) 09/22/21 09/22/21 09/23/21 Range/Units 16:29 20:07 05:19 PT (9.0-12.0) sec INR (<1.2) POC Glucose (mg/dL) 130 H 176 H 125 H (75-99) mg/dL 09/23/21 Range/Units 07:49 PT 25.4 H (9.0-12.0) sec INR 2.5 H (<1.2) POC Glucose (mg/dL) (75-99) mg/dL Microbiology - Last 24 Hours (Table) 09/18/21 20:50 Blood Culture - Preliminary Blood No Growth after 96 hours 09/18/21 21:05 Blood Culture - Preliminary Blood No Growth after 96 hours Assessment and Plan Assessment: Acute influenza A infection, and possible viral pneumonia. COPD exacerbation, much improved. Acute exacerbation of CHF, with systolic dysfunction. Chronic atrial fibrillation. Status post permanent pacemaker implantation. Hyperlipidemia. Diabetes mellitus, type II. Severe COPD, with an FEV1 that's 51% of predicted. History of aortic valve replacement. Obesity. Former smoker. Plan: Plan dated 09/21/2021. The patient continues on appropriate medications including bronchodilators, and Tamiflu. The patient continues on GI and DVT prophylaxis. The patient is also on Symbicort, 160/4.5, 2 puffs twice a day, and Solu-Medrol, 40 mg every 6 hours. Additional recommendations and suggestions are forthcoming. Prognosis is guarded. Labs, x-rays, and medications are reviewed. Prognosis is guarded. We will continue to follow the patient and make recommendations where appropriate. Plan dated 09/22/2021. The patient appears to be doing relatively well. Patient's currently on 3 L. Saturations are 99%. The oxygen can be weaned down. The patient apparently is not on any oxygen at home. He continues on Tamiflu for a total of 5 days. He apparently states that he might be discharged tomorrow. The patient continues on GI and DVT prophylaxis. Solu-Medrol can be converted to a small dose of prednisone maybe 20 or 30 mg a day. Labs, x-rays, and medications are reviewed. We will continue to follow. Prognosis is guarded. Plan dated 09/23/2021. The patient appears to be doing much better. The patient could be considered for possible discharge home. We will continue to follow make recommendations where appropriate. Prognosis is certainly guarded. The patient should complete 5 days of Tamiflu. No additional recommendations are made at this time. Time with Patient: Less than 30
[2021-09-23 12:11] LABS: Glucose,Whole Blood 94 mg/dL (75-99)
[2021-09-23 15:54] VITALS: PULSE 91
[2021-09-23] MEDS ORDERED: WARFARIN 5 MG TAB PO ONE (18:00)
== END 2021-09-23 16:30 | disposition home health service (06) | DRG 193 ==
LOC: EC 20:32 → SUPCPDRO 20:32 → 3SCARD 23:26
PROVIDERS: ADMIT Family Medicine; ATTEND Family Medicine
DX: J10.00 Influenza due to other identified influenza virus with unspecified type of pneumonia (principal); I50.23 Acute on chronic systolic (congestive) heart failure; J96.01 Acute respiratory failure with hypoxia; I42.8 Other cardiomyopathies; J44.1 Chronic obstructive pulmonary disease with (acute) exacerbation; I48.19 Other persistent atrial fibrillation; Z68.43 Body mass index [BMI] 50.0-59.9, adult; I11.0 Hypertensive heart disease with heart failure; Z20.822 Contact with and (suspected) exposure to COVID-19; E66.01 Morbid (severe) obesity due to excess calories; F32.A Depression, unspecified; E78.5 Hyperlipidemia, unspecified; G47.33 Obstructive sleep apnea (adult) (pediatric); I83.90 Asymptomatic varicose veins of unspecified lower extremity; M19.90 Unspecified osteoarthritis, unspecified site; Z79.51 Long term (current) use of inhaled steroids; Z79.01 Long term (current) use of anticoagulants; Z79.84 Long term (current) use of oral hypoglycemic drugs; Z79.899 Other long term (current) drug therapy; Z90.89 Acquired absence of other organs; Z87.440 Personal history of urinary (tract) infections; Z90.49 Acquired absence of other specified parts of digestive tract; Z87.19 Personal history of other diseases of the digestive system; Z95.3 Presence of xenogenic heart valve; Z87.39 Personal history of other diseases of the musculoskeletal system and connective tissue; Z98.42 Cataract extraction status, left eye; Z98.41 Cataract extraction status, right eye; Z87.891 Personal history of nicotine dependence; Z95.0 Presence of cardiac pacemaker; Z98.890 Other specified postprocedural states; Z71.3 Dietary counseling and surveillance; W19.XXXA Unspecified fall, initial encounter; Y92.009 Unspecified place in unspecified non-institutional (private) residence as the place of occurrence of the external cause
CPT/HCPCS: 36415; 70450; 71045; 71046; 74177; 80048; 80053; 81003; 83605; 83735; 83880; 84484; 85025; 85610; 85730; 87040; 87636; 93005; 93306; 94640; 94760; 96374; 96375; 99285

== ENCOUNTER 2023-07-20 17:22 | Inpatient (IN) | payer MEDICARE ==
--- NOTE | 2023-07-20 17:46 | ED ---
General Adult HPI - General Source: patient, family, RN notes reviewed <Carol Davidson - Last Filed: 07/20/23 17:45> - General Source: patient, family, RN notes reviewed <John Luna - Last Filed: 07/21/23 03:54> - General Stated complaint: AMS Time Seen by Provider: 07/20/23 17:45 - History of Present Illness Initial comments: Patient is a 72-year-old male presented to ER with a chief complaint of chest pain. Patient is also endorsing shortness of breath and chills. Family reports he received nitro by EMS. Patient is also reporting he feels weak. (Carol Davidson) Patient is a 72-year-old male presents emergency department complaining of weakness. Presents with family. Has a history of UTIs, CHF, COPD, diabetes, irregular heartbeat with the pacemaker as well as on Coumadin. No known falls. Patient has had fevers at home. Family concerned he may have a UTI. Also is confused from baseline. Patient may have had some chest pain earlier as well. Currently has no acute complaints however is confused as to year. Notes place and person. Presents for further evaluation. No current chest pain. No current shortness of breath. (John Luna) - Related Data Home Medications Medication Instructions Recorded Confirmed metFORMIN HCL [Glucophage] 500 mg PO DAILY 10/15/14 07/20/23 Atorvastatin [Lipitor] 40 mg PO HS 11/23/16 07/20/23 Mv-Min/Folic/K1/Lycopen/Lutein 1 tab PO DAILY 08/25/21 07/20/23 [Centrum Silver Men Tablet] OLANZapine 10 mg PO HS 08/25/21 07/20/23 buPROPion XL [Wellbutrin XL] 300 mg PO DAILY 08/25/21 07/20/23 lisinopriL [Zestril] 20 mg PO DAILY 08/25/21 07/20/23 metOLazone 2.5 mg PO DAILY 08/25/21 07/20/23 modafiniL [Provigil] 200 mg PO DAILY 08/25/21 07/20/23 Amitriptyline HCl [Elavil] 25 mg PO HS 07/20/23 07/20/23 Bismuth Subsalicylate 525 mg PO DIRECTED PRN 07/20/23 07/20/23 [Pepto-Bismol Ultra] Docusate [Colace] 100 mg PO DAILY 07/20/23 07/20/23 Metoprolol Succinate [Toprol XL] 50 mg PO DAILY 07/20/23 07/20/23 Nitroglycerin Sl Tabs [Nitrostat] 0.4 mg SL Q5M PRN 07/20/23 07/20/23 Tamsulosin [Flomax] 0.4 mg PO HS 07/20/23 07/20/23 Warfarin [Coumadin] 7.5 mg PO HS 07/20/23 07/20/23 Previous Rx's Medication Instructions Recorded Furosemide [Lasix] 40 mg PO DAILY #30 tablet 09/23/21 traMADol HCl [Ultram] 50 mg PO TID PRN tab 09/23/21 Allergies Allergy/AdvReac Type Severity Reaction Status Date / Time No Known Allergies Allergy Verified 07/20/23 22:41 Review of Systems ROS Other: All systems not noted in ROS Statement are negative. <Carol Davidson - Last Filed: 07/20/23 17:45> ROS Other: All systems not noted in ROS Statement are negative. <John Luna - Last Filed: 07/21/23 03:54> ROS Statement: Those systems with pertinent positive or pertinent negative responses have been documented in the HPI. Review of Systems: CONST: Denies fever EYES: Denies blurry vision ENT: Denies nasal congestion C/V: Denies Chest pain RESP: Denies shortness of breath GI: Denies abdominal pain : Denies dysuria SKIN: Denies rash. MSK: Denies joint pain. NEURO: Denies headache (John Luna) Past Medical History Past Medical History: Heart Failure, COPD, Diabetes Mellitus, Hypertension, Sleep Apnea/CPAP/BIPAP Additional Past Medical History / Comment(s): irregular heartbeat, varicose veins, 2 herniated disk/degenerative disks, leaky heart valve, "blood clots in the heart" History of Any Multi-Drug Resistant Organisms: None Reported Past Surgical History: Appendectomy, Bowel Resection, Cardiac Valve Replacement, Heart Catheterization, Orthopedic Surgery, Pacemaker, Tonsillectomy Additional Past Surgical History / Comment(s): left shoulder surgery, surgery for sleep apnea, deana cataracts, Aortic Valve replacement (bovine) 06/2016 Past Anesthesia/Blood Transfusion Reactions: No Reported Reaction Type of Cardiac Device: Permanent Pacemaker Device Placement Date:: 12/24/2018 Past Psychological History: Depression Smoking Status: Former smoker Past Alcohol Use History: Occasional Additional Past Alcohol Use History / Comment(s): quit smoking 2014. smoked for 30 yrs, < 1 PPD Past Drug Use History: None Reported - Past Family History Mother Family Medical History: No Reported History <Carol Davidson - Last Filed: 07/20/23 17:45> General Exam <Carol Davidson - Last Filed: 07/20/23 17:45> <John Luna - Last Filed: 07/21/23 03:54> - General Exam Comments Initial Comments: Visual Physical Exam Vital signs reviewed General: Well-appearing, nontoxic, no acute distress. Head: Normocephalic, atraumatic Eyes: PERRLA, EOMI ENT: Airway patent Chest: Nonlabored breathing Skin: No visual rash, normal skin tone Neuro: Alert and oriented 3 Musculoskeletal: No gross abnormalities (Carol Davidson) General: Appears in no acute distress. Low-grade fever. HEAD: Normal with no signs of head trauma. EYES: PERRLA, EOMI, conjunctiva normal, no discharge. Pulls are 2 mm and equal bilaterally. ENT: Hearing grossly intact, normal oropharynx. RESPIRATORY: Clear breath sounds bilaterally. No wheezes, rales, or rhonchi. C/V: Regular rate and rhythm. S1 and S2 auscultated, symmetrical bilateral lower extremity pitting edema, peripheral pulses 2+ and intact throughout ABD: Abd is soft, nontender, nondistended EXT: Normal range of motion, no obvious deformity SKIN: No rashes or lesions observed on exposed skin. NEURO: Alert and oriented x 2. No focal deficits. (John Luna) Course Vital Signs 07/20/23 07/20/23 07/20/23 17:56 22:10 22:39 Temperature 98 F Pulse Rate 67 63 63 Respiratory 18 20 Rate Blood Pressure 83/56 101/63 O2 Sat by Pulse 92 L 96 Oximetry 07/20/23 07/20/23 22:57 23:35 Temperature Pulse Rate 60 78 Respiratory 18 Rate Blood Pressure 99/84 O2 Sat by Pulse 92 L Oximetry Medical Decision Making <Carol Davidson - Last Filed: 07/20/23 17:45> - Lab Data Result diagrams: 07/20/23 19:03 07/21/23 01:25 - EKG Data -: EKG Interpreted by Me <John Luna - Last Filed: 07/21/23 03:54> - Medical Decision Making I performed the quick note portion of the exam. Electronically signed by Carol Davidson PA-C (Carol Davidson) Was pt. sent in by a medical professional or institution (KELLY Dee, [employer] INTER[employer]ATE [employer] PRINCIPAL, urgent care, hospital, or long-term...) When possible be specific @ -No Did you speak to anyone other than the patient for history (EMS, parent, family, police, friend...)? What history was obtained from this source @ -No Did you review nursing and triage notes (agree or disagree)? Why? @ -I reviewed and agree with nursing and triage notes Were old charts reviewed (outside hosp., previous admission, EMS record, old EKG, old radiological studies, urgent care reports/EKG's, long-term records)? Report findings @ -Old charts reviewed Differential Diagnosis (chest pain, altered mental status, abdominal pain women, abdominal pain men, vaginal bleeding, weakness, fever, dyspnea, syncope, headache, dizziness, GI bleed, back pain, seizure, CVA, palpatations, mental health, musculoskeletal)? @ -Differential Altered Mental Status: Hypoglycemia, DKA, hypercapnia, ETOH, overdose, CO poisoning, trauma, myxedema coma, HTN encephalopathy, infection, encephalitis, psychosis, intercranial hemorrhage, hepatic encephalopathy, meningitis, CVA, this is not meant to be an all-inclusive list EKG interpreted by me (3pts min.). @ -As above X-rays interpreted by me (1pt min.). @ -Chest x-ray reveals bilateral pulmonary vascular congestion CT interpreted by me (1pt min.). @ -CT brain reveals no obvious acute intracranial process. U/S interpreted by me (1pt. min.). @ -None done What testing was considered but not performed or refused? (CT, X-rays, U/S, labs)? Why? @ -None What meds were considered but not given or refused? Why? @ -None Did you discuss the management of the patient with other professionals (machelle perdue iSaraheSarah Dee, PA, [employer]IPAL, lab, RT, psych nurse, social science teacher, licensed loan officer, teacher, commissioned security officer, case preparer and liner)? Give summary @ -Discussed with Dr. Goodman who accepted the admission. Was smoking cessation discussed for >3mins.? @ -No Was critical care preformed (if so, how long)? @ -Yes, 36 minutes. Were there social determinants of health that impacted care today? How? (Homelessness, low income, unemployed, alcoholism, drug addiction, transportation, low edu. Level, literacy, decrease access to med. care, long term, rehab)? @ -No Was there de-escalation of care discussed even if they declined (Discuss DNR or withdrawal of care, Hospice)? DNR status @ -No What co-morbidities impacted this encounter? (DM, HTN, Smoking, COPD, CAD, Cancer, CVA, ARF, Chemo, Hep., AIDS, mental health diagnosis, sleep apnea, morbid obesity)? @ -CHF, pacemaker Was patient admitted / discharged? Hospital course, mention meds given and route, prescriptions, significant lab abnormalities, going to OR and other p ertinent info. @ -Based on patient's presentation and physical exam, presents with a leukocytosis, altered mental status, fever. Concern for infection and possible sepsis. Patient was brought back after initially having hypotension in triage. Hypotension is improved at this time but we will empirically treat for sepsis considering his fever, initial hypotension on presentation as well as a diana kocytosis. Sepsis criteria met at 2200. Patient started on broad-spectrum antibiotics vancomycin and cefepime. Patient will not receive the 30 cc/kg fluid boluses we will closely monitor fluid status due to his history of CHF appearing volume overloaded at this time. Blood pressures currently within acceptable limits. He will receive a small 500 cc fluid bolus. Blood cultures and urine culture sent. Patient was also hyperkalemic and we will repeat labs with no EKG changes but we will initiate hyperkalemia cocktail for the patient. Will repeat laboratory studies at this time. Patient was in agreement this plan. Vital signs are improved at this time without any fluids and we will hold fluids at this time and over concern for volume overload state but will closely monitor. He will be given a dose of Lasix over concern for slight volume overload state and will also help with hyperkalemia. EKG shows no signs of acute ischemia. Chest x-ray shows pulmonary vascular congestion. Repeat laboratory studies showed no obvious UTI. Viral swabs negative. Patient has a slight lactic acidosis of 2.5. Patient remains hyperkalemic with an LYNDSEY that is mild. Current potassium is currently 5.9. Patient has a supratherapeutic INR of 3.4.Slightly elevated lactic acidosis of 2.5. CT CT brain reveals no evidence of acute intracranial process or injury. I updated the patient. Vital signs have stabilized. We will continue to monitor the potassium. I updated patient's family. Will continue to treat for sepsis as well. Patient and family are in agreement this plan. I spoke with Dr. Goodman who accepted the admission. Nephrology consulted. His repeat potassium is 4.9. Undiagnosed new problem with uncertain prognosis? @ -No Drug Therapy requiring intensive monitoring for toxicity (Heparin, Nitro, Insulin, Cardizem)? @ -No Were any procedures done? @ -No Diagnosis/symptom? @ -Altered mental status, sepsis, hyperkalemia, supratherapeutic INR Acute, or Chronic, or Acute on Chronic? @ -Acute Uncomplicated (without systemic symptoms) or Complicated (systemic symptoms)? @ -Complicated Side effects of treatment? @ -No Exacerbation, Progression, or Severe Exacerbation? @ -No Poses a threat to life or bodily function? How? (Chest pain, USA, PR, pneumonia, PE, COPD, DKA, ARF, appy, cholecystitis, CVA, Diverticulitis, Homicidal, Suicidal, threat to staff... and all critical care pts) @ -Yes (John Luna) - Lab Data Lab Results 07/20/23 07/20/23 07/20/23 Range/Units 19:03 19:03 20:09 WBC 25.7 H (3.8-10.6) k/uL RBC 4.62 (4.30-5.90) m/uL Hgb 14.5 (13.0-17.5) gm/dL Hct 46.0 (39.0-53.0) % MCV 99.7 (80.0-100.0) fL MCH 31.4 (25.0-35.0) pg MCHC 31.5 (31.0-37.0) g/dL RDW 13.8 (11.5-15.5) % Plt Count 235 (150-450) k/uL MPV 7.8 Neutrophils % (Manual) 87 % Band Neuts % (Manual) 6 % Lymphocytes % (Manual) 2 % Monocytes % (Manual) 4 % Metamyelocytes % 2 % Neutrophils # (Manual) 23.90 H (1.3-7.7) k/uL Lymphocytes # (Manual) 0.51 L (1.0-4.8) k/uL Monocytes # (Manual) 1.03 H (0-1.0) k/uL Metamyelocytes # (Man) 0.51 H (0) k/uL Nucleated RBCs 0 (0-0) /100 WBC Manual Slide Review Performed Hypochromasia Slight PT (10.0-12.5) sec INR (<1.2) APTT (22.0-30.0) sec Sodium 139 (137-145) mmol/L Potassium 5.7 H (3.5-5.1) mmol/L Chloride 107 (98-107) mmol/L Carbon Dioxide 22 (22-30) mmol/L Anion Gap 10 mmol/L BUN 34 H (9-20) mg/dL Creatinine 1.32 H (0.66-1.25) mg/dL Est GFR (CKD-EPI)AfAm 62 (>60 ml/min/1.73 sqM) Est GFR (CKD-EPI)NonAf 53 (>60 ml/min/1.73 sqM) Glucose 118 H (74-99) mg/dL Lactic Ac Sepsis Rflx Plasma Lactic Acid Epi (0.7-2.0) mmol/L Calcium 9.3 (8.4-10.2) mg/dL Phosphorus 2.8 (2.5-4.5) mg/dL Magnesium 1.8 (1.6-2.3) mg/dL Total Bilirubin 1.1 (0.2-1.3) mg/dL AST 42 (17-59) U/L ALT 30 (4-49) U/L Alkaline Phosphatase 73 (38-126) U/L Troponin I (0.000-0.034) ng/mL NT-Pro-B Natriuret Pep 5340 pg/mL Total Protein 7.0 (6.3-8.2) g/dL Albumin 4.0 (3.5-5.0) g/dL Urine Color Urine Appearance (Clear) Urine pH (5.0-8.0) Ur Specific [place] (1.001-1.035) Urine Protein (Negative) Urine Glucose (UA) (Negative) Urine Ketones (Negative) Urine Blood (Negative) Urine Nitrite (Negative) Urine Bilirubin (Negative) Urine Urobilinogen (<2.0) mg/dL Ur Leukocyte Esterase (Negative) Urine RBC (0-5) /hpf Urine WBC (0-5) /hpf Ur Squamous Epith Cells (0-4) /hpf Urine Bacteria (None) /hpf Hyaline Casts (0-2) /lpf Urine Mucus (None) /hpf Influenza Type A (PCR) Not Detected (Not Detectd) Influenza Type B (PCR) Not Detected (Not Detectd) RSV (PCR) Not Detected (Not Detectd) SARS-CoV-2 (PCR) Not Detected (Not Detectd) 07/20/23 07/20/23 07/20/23 Range/Units 22:09 22:09 22:09 WBC (3.8-10.6) k/uL RBC (4.30-5.90) m/uL Hgb (13.0-17.5) gm/dL Hct (39.0-53.0) % MCV (80.0-100.0) fL MCH (25.0-35.0) pg MCHC (31.0-37.0) g/dL RDW (11.5-15.5) % Plt Count (150-450) k/uL MPV Neutrophils % (Manual) % Band Neuts % (Manual) % Lymphocytes % (Manual) % Monocytes % (Manual) % Metamyelocytes % % Neutrophils # (Manual) (1.3-7.7) k/uL Lymphocytes # (Manual) (1.0-4.8) k/uL Monocytes # (Manual) (0-1.0) k/uL Metamyelocytes # (Man) (0) k/uL Nucleated RBCs (0-0) /100 WBC Manual Slide Review Hypochromasia PT 33.6 H (10.0-12.5) sec INR 3.4 H (<1.2) APTT 48.7 H (22.0-30.0) sec Sodium (137-145) mmol/L Potassium (3.5-5.1) mmol/L Chloride (98-107) mmol/L Carbon Dioxide (22-30) mmol/L Anion Gap mmol/L BUN (9-20) mg/dL Creatinine (0.66-1.25) mg/dL Est GFR (CKD-EPI)AfAm (>60 ml/min/1.73 sqM) Est GFR (CKD-EPI)NonAf (>60 ml/min/1.73 sqM) Glucose (74-99) mg/dL Lactic Ac Sepsis Rflx Plasma Lactic Acid Epi (0.7-2.0) mmol/L Calcium (8.4-10.2) mg/dL Phosphorus (2.5-4.5) mg/dL Magnesium (1.6-2.3) mg/dL Total Bilirubin (0.2-1.3) mg/dL AST (17-59) U/L ALT (4-49) U/L Alkaline Phosphatase (38-126) U/L Troponin I 0.026 (0.000-0.034) ng/mL NT-Pro-B Natriuret Pep pg/mL Total Protein (6.3-8.2) g/dL Albumin (3.5-5.0) g/dL Urine Color Yellow Urine Appearance Clear (Clear) Urine pH 5.5 (5.0-8.0) Ur Specific [place] 1.026 (1.001-1.035) Urine Protein Trace H (Negative) Urine Glucose (UA) Negative (Negative) Urine Ketones Negative (Negative) Urine Blood Moderate H (Negative) Urine Nitrite Negative (Negative) Urine Bilirubin Negative (Negative) Urine Urobilinogen <2.0 (<2.0) mg/dL Ur Leukocyte Esterase Small H (Negative) Urine RBC 35 H (0-5) /hpf Urine WBC 6 H (0-5) /hpf Ur Squamous Epith Cells <1 (0-4) /hpf Urine Bacteria Rare H (None) /hpf Hyaline Casts 9 H (0-2) /lpf Urine Mucus Few H (None) /hpf Influenza Type A (PCR) (Not Detectd) Influenza Type B (PCR) (Not Detectd) RSV (PCR) (Not Detectd) SARS-CoV-2 (PCR) (Not Detectd) 07/20/23 07/20/23 07/20/23 Range/Units 22:09 22:09 22:55 WBC (3.8-10.6) k/uL RBC (4.30-5.90) m/uL Hgb (13.0-17.5) gm/dL Hct (39.0-53.0) % MCV (80.0-100.0) fL MCH (25.0-35.0) pg MCHC (31.0-37.0) g/dL RDW (11.5-15.5) % Plt Count (150-450) k/uL MPV Neutrophils % (Manual) % Band Neuts % (Manual) % Lymphocytes % (Manual) % Monocytes % (Manual) % Metamyelocytes % % Neutrophils # (Manual) (1.3-7.7) k/uL Lymphocytes # (Manual) (1.0-4.8) k/uL Monocytes # (Manual) (0-1.0) k/uL Metamyelocytes # (Man) (0) k/uL Nucleated RBCs (0-0) /100 WBC Manual Slide Review Hypochromasia PT (10.0-12.5) sec INR (<1.2) APTT (22.0-30.0) sec Sodium 139 (137-145) mmol/L Potassium 5.9 H (3.5-5.1) mmol/L Chloride 104 (98-107) mmol/L Carbon Dioxide 28 (22-30) mmol/L Anion Gap 7 mmol/L BUN 35 H (9-20) mg/dL Creatinine 1.53 H (0.66-1.25) mg/dL Est GFR (CKD-EPI)AfAm 51 (>60 ml/min/1.73 sqM) Est GFR (CKD-EPI)NonAf 44 (>60 ml/min/1.73 sqM) Glucose 122 H (74-99) mg/dL Lactic Ac Sepsis Rflx Y Plasma Lactic Acid Epi 2.5 H* (0.7-2.0) mmol/L Calcium 9.6 (8.4-10.2) mg/dL Phosphorus (2.5-4.5) mg/dL Magnesium (1.6-2.3) mg/dL Total Bilirubin (0.2-1.3) mg/dL AST (17-59) U/L ALT (4-49) U/L Alkaline Phosphatase (38-126) U/L Troponin I (0.000-0.034) ng/mL NT-Pro-B Natriuret Pep pg/mL Total Protein (6.3-8.2) g/dL Albumin (3.5-5.0) g/dL Urine Color Urine Appearance (Clear) Urine pH (5.0-8.0) Ur Specific [place] (1.001-1.035) Urine Protein (Negative) Urine Glucose (UA) (Negative) Urine Ketones (Negative) Urine Blood (Negative) Urine Nitrite (Negative) Urine Bilirubin (Negative) Urine Urobilinogen (<2.0) mg/dL Ur Leukocyte Esterase (Negative) Urine RBC (0-5) /hpf Urine WBC (0-5) /hpf Ur Squamous Epith Cells (0-4) /hpf Urine Bacteria (None) /hpf Hyaline Casts (0-2) /lpf Urine Mucus (None) /hpf Influenza Type A (PCR) (Not Detectd) Influenza Type B (PCR) (Not Detectd) RSV (PCR) (Not Detectd) SARS-CoV-2 (PCR) (Not Detectd) - EKG Data EKG Comments: 12-lead Electrocardiogram Interpretation Note EKG was reviewed and interpreted by myself. 12-lead ECG performed at 1844 is interpreted by me as revealing electronically paced rhythm at a rate of 62 beats per minute. QRS duration is 165 ms, QTc is 422 ms.. There were no ST or T wave abnormalities to suggest myocardial ischemia or injury. . By my interpretation this EKG is non-diagnostic for acute ischemia. No significant change when compared with prior EKGs from 2021. (John Luna) Critical Care Time Critical Care Time: Yes Total Critical Care Time: 36 <John Luna - Last Filed: 07/21/23 03:54> Disposition <Carol Davidson - Last Filed: 07/20/23 17:45> Time of Disposition: 00:10 <John Luna - Last Filed: 07/21/23 03:54> Clinical Impression: Sepsis, Confusion, Supratherapeutic INR, Hyperkalemia, LYNDSEY (acute kidney injury), Altered mental status Disposition: ADMITTED IP TO THIS HOSP Condition: Stable
--- NOTE | 2023-07-20 18:04 | ED ---
Chest Pain HPI - General Stated Complaint: AMS Time Seen by Provider: 07/20/23 17:42 Source: patient, family, RN notes reviewed - Related Data Home Medications Medication Instructions Recorded Confirmed metFORMIN HCL [Glucophage] 500 mg PO DAILY@0900 10/15/14 09/18/21 Atorvastatin [Lipitor] 40 mg PO HS@2100 11/23/16 09/18/21 Cyanocobalamin (Vitamin B-12) 1,000 mcg PO DAILY 12/21/18 09/18/21 [Vitamin B-12] Acetaminophen Tab [Tylenol] 500 mg PO Q6H PRN 08/25/21 09/18/21 Metoprolol Tartrate [Lopressor] 50 mg PO BID@0900,1700 08/25/21 09/18/21 Mv-Min/Folic/K1/Lycopen/Lutein 1 tab PO DAILY@0900 08/25/21 09/18/21 [Centrum Silver Men Tablet] OLANZapine 10 mg PO HS@2100 08/25/21 09/18/21 buPROPion XL [Wellbutrin XL] 300 mg PO DAILY@1700 08/25/21 09/18/21 lisinopriL [Zestril] 20 mg PO DAILY@0900 08/25/21 09/18/21 metOLazone 2.5 mg PO MO 08/25/21 09/18/21 modafiniL [Provigil] 400 mg PO DAILY@0900 08/25/21 09/18/21 tiZANidine [Zanaflex] 2 mg PO HS@2100 08/25/21 09/18/21 Fluticasone Propion/Salmeterol 1 puff INHALATION RT-DAILY 09/18/21 09/18/21 [Advair Hfa 230-21 Mcg Inhaler] Previous Rx's Medication Instructions Recorded Tamsulosin [Flomax] 0.4 mg PO DAILY #30 cap 08/30/21 predniSONE 10 mg PO DIRECTED #30 tab 09/22/21 Furosemide [Lasix] 40 mg PO DAILY #30 tablet 09/23/21 Ipratropium-Albuterol Nebulize 3 ml INHALATION RT-QID #120 ml 09/23/21 [Duoneb 0.5 mg-3 mg/3 ml Soln] Warfarin [Coumadin] 5 mg PO HS@2100 #0 09/23/21 traMADol HCl [Ultram] 50 mg PO TID PRN tab 09/23/21 Allergies Allergy/AdvReac Type Severity Reaction Status Date / Time No Known Allergies Allergy Verified 09/18/21 20:53 Review of Systems ROS Statement: Those systems with pertinent positive or pertinent negative responses have been documented in the HPI. ROS Other: All systems not noted in ROS Statement are negative. Past Medical History Past Medical History: Heart Failure, COPD, Diabetes Mellitus, Hypertension, Sleep Apnea/CPAP/BIPAP Additional Past Medical History / Comment(s): irregular heartbeat, varicose veins, 2 herniated disk/degenerative disks, leaky heart valve, "blood clots in the heart" History of Any Multi-Drug Resistant Organisms: None Reported Past Surgical History: Appendectomy, Bowel Resection, Cardiac Valve Replacement, Heart Catheterization, Orthopedic Surgery, Pacemaker, Tonsillectomy Additional Past Surgical History / Comment(s): left shoulder surgery, surgery for sleep apnea, deana cataracts, Aortic Valve replacement (bovine) 06/2016 Past Anesthesia/Blood Transfusion Reactions: No Reported Reaction Type of Cardiac Device: Permanent Pacemaker Device Placement Date:: 12/24/2018 Past Psychological History: Depression Smoking Status: Former smoker Past Alcohol Use History: Occasional Additional Past Alcohol Use History / Comment(s): quit smoking 2014. smoked for 30 yrs, < 1 PPD Past Drug Use History: None Reported - Past Family History Mother Family Medical History: No Reported History Disposition Referrals: Cory Goodman MD [Primary Care Provider] - 1-2 days
[2023-07-20 19:13] LABS: HGB 14.5 gm/dL (13.0-17.5); Hypochromasia Slight; MCH 31.4 pg (25.0-35.0); MCHC 31.5 g/dL (31.0-37.0); MCV 99.7 fL (80.0-100.0); Mean Platelet Volume 7.8; Platelet Count 235 k/uL (150-450); RBC 4.62 m/uL (4.30-5.90); RDW 13.8 % (11.5-15.5); WBC 25.7 k/uL (3.8-10.6)
[2023-07-20 19:35] LABS: Band Neutrophils % 6 %; Lymphocytes # (M) 0.51 k/uL (1.0-4.8); Metamyelocytes # (M) 0.51 k/uL (0); Metamyelocytes % 2 %; Monocytes # (M) 1.03 k/uL (0-1.0); Neutrophils % (M) 87 %; Nucleated Red Blood Cells 0 /100 WBC (0-0); Total Cells Counted 200
--- NOTE | 2023-07-20 19:42 | XR ---
EXAMINATION TYPE: XR chest 2V DATE OF EXAM: 07/20/2023 COMPARISON: 09/21/2021 HISTORY: 72-year-old male with weakness TECHNIQUE: AP and lateral views FINDINGS: Median sternotomy wires are present with prosthetic aortic valve. Plate and screw fixation seen on th e lateral view proximal left humerus. Left anterior chest wall pacemaker generator with right ventric ular lead. Heart is mildly enlarged. Diffuse interstitial and vascular prominence. No sizable pleural effusion. IMPRESSION: Mild cardiomegaly and pulmonary vascular congestion. No jojo pulmonary edema.
[2023-07-20 20:58] LABS: Potassium 5.7 mmol/L (3.5-5.1)
[2023-07-20 20:59] LABS: ALT 30 U/L (4-49); AST 42 U/L (17-59); African American GFR (CKD) 62 (>60 ml/min/1.73 sqM); Alkaline Phosphatase 73 U/L (38-126); Anion Gap 10 mmol/L; Blood Urea Nitrogen 34 mg/dL (9-20); Calcium 9.3 mg/dL (8.4-10.2); Carbon Dioxide 22 mmol/L (22-30); Chloride 107 mmol/L (98-107); Glucose 118 mg/dL (74-99); Magnesium 1.8 mg/dL (1.6-2.3); Non-African American GFR(CKD) 53 (>60 ml/min/1.73 sqM); Phosphorus 2.8 mg/dL (2.5-4.5); Sodium 139 mmol/L (137-145); Total Bilirubin 1.1 mg/dL (0.2-1.3)
[2023-07-20 21:06] LABS: NT-Pro-B-Type Natriuretic Pept 5340 pg/mL
[2023-07-20] MEDS ORDERED: VANCOMYCIN IV PER PHARMACY 1 EACH MISC MISCELLANE PRN (22:00)
[2023-07-20] MEDS: ALBUTEROL NEB (CONC) 2.5 MG/0.5 ML INHALATION ONE (22:30)
[2023-07-20 22:38] LABS: African American GFR (CKD) 51 (>60 ml/min/1.73 sqM); Anion Gap 7 mmol/L; Blood Urea Nitrogen 35 mg/dL (9-20); Calcium 9.6 mg/dL (8.4-10.2); Carbon Dioxide 28 mmol/L (22-30); Chloride 104 mmol/L (98-107); Glucose 122 mg/dL (74-99); Non-African American GFR(CKD) 44 (>60 ml/min/1.73 sqM); Potassium 5.9 mmol/L (3.5-5.1); Sodium 139 mmol/L (137-145)
[2023-07-20] MEDS: CEFEPIME 2 GM in SODIUM CHLORIDE 0.9% 100 ML IVPB STA (22:40)
[2023-07-20] MEDS: ACETAMINOPHEN TAB 500 MG TAB PO STA (22:40)
[2023-07-20] MEDS: CALCIUM GLUCONATE IN NACL 1 GM in SALINE 1 100ML.BAG IVPB ONE (22:44)
[2023-07-20 22:46] LABS: INR 3.4 (<1.2); Partial Thromboplastin Time 48.7 sec (22.0-30.0); Prothrombin Time 33.6 sec (10.0-12.5)
[2023-07-20 22:47] LABS: Appearance,Urine Clear (Clear); Bacteria,Urine Rare /hpf; Bilirubin,Urine Negative (Negative); Blood,Urine Moderate (Negative); Color,Urine Yellow; Glucose,Urine (UA) Negative (Negative); Hyaline Casts,Urine 9 /lpf (0-2); Ketones,Urine Negative (Negative); Leukocyte Esterase,Urine Small (Negative); Mucus,Urine Few /hpf; Nitrite,Urine Negative (Negative); PH, Urine 5.5 (5.0-8.0); Protein,Urine Trace (Negative); RBC,Urine 35 /hpf (0-5); Specific Gravity,Urine 1.026 (1.001-1.035); Squamous Epithelial Cell,Urine <1 /hpf (0-4); Urobilinogen,Urine <2.0 mg/dL (<2.0); WBC,Urine 6 /hpf (0-5)
[2023-07-20] MEDS: INSULIN REGULAR 100 UNIT/ML VIAL (IV) IV ONE (22:49)
[2023-07-20] MEDS: DEXTROSE 50% SYRINGE 50 ML IVP ONE (22:52)
[2023-07-20] MEDS: FUROSEMIDE 10 MG/ML 4 ML VIAL IV STA (22:53)
[2023-07-20] MEDS: SODIUM ZIRCONIUM CYCLOSILICATE 10 GM PACKET PO ONE (22:57)
[2023-07-20] MEDS: SODIUM BICARB 8.4% 50 ML SYR (1 MEQ/ML) IV STA (23:01)
--- NOTE | 2023-07-20 23:07 | CT ---
EXAM: CT Head Without Intravenous Contrast CLINICAL HISTORY: Altered mental status. TECHNIQUE: Axial computed tomography images of the head/brain without intravenous contrast. CTDI is 49.2 mGy and DLP is 1212.4 mGy-cm. This CT exam was performed using one or more of the following dose reduction techniques: automated exposure control, adjustment of the mA and/or kV according to patient size, and/or use of iterative reconstruction technique. COMPARISON: September 18, 2021 FINDINGS: Brain: Chronic, small vessel ischemic changes in the white matter. No acute edema, hemorrhage or abnormal mass-effect. Ventricles: Unremarkable. No ventriculomegaly. Bones/joints: Unremarkable. No acute fracture. Soft tissues: Unremarkable. Sinuses: Unremarkable as visualized. No acute sinusitis. Mastoid air cells: Unremarkable as visualized. No mastoid effusion. IMPRESSION: No acute findings in the head/brain.
[2023-07-20] MEDS: SODIUM CHLORIDE 0.9% 500 ML 500 ML IV STA (23:27)
[2023-07-21] MEDS ORDERED: NALOXONE 0.4 MG/ML 1 ML VIAL IV PRN (00:21)
[2023-07-21] MEDS: VANCOMYCIN 2,500 MG in SODIUM CHLORIDE 0.9% 500 ML 500 ML IVPB ONE (01:00)
[2023-07-21] MEDS: SODIUM BICARB 8.4% 50 ML SYR (1 MEQ/ML) IV STA (01:34)
[2023-07-21] MEDS: CEFEPIME 2 GM in SODIUM CHLORIDE 0.9% 100 ML IVPB SCH (07:52)
[2023-07-21] MEDS: METOPROLOL SUCCINATE (ER) 50 MG TAB.ER.24H PO SCH (08:51)
[2023-07-21] MEDS: buPROPion XL 300 MG TAB.ER.24H PO SCH (08:51)
[2023-07-21 10:45] LABS: INR 3.3 (<1.2); Prothrombin Time 32.5 sec (10.0-12.5)
[2023-07-21 11:15] LABS: African American GFR (CKD) 65 (>60 ml/min/1.73 sqM); Anion Gap 6 mmol/L; Blood Urea Nitrogen 42 mg/dL (9-20); Calcium 8.7 mg/dL (8.4-10.2); Carbon Dioxide 28 mmol/L (22-30); Chloride 104 mmol/L (98-107); Glucose 144 mg/dL (74-99); Non-African American GFR(CKD) 56 (>60 ml/min/1.73 sqM); Potassium 4.5 mmol/L (3.5-5.1); Sodium 138 mmol/L (137-145)
--- NOTE | 2023-07-21 12:17 | P.NPCON ---
History of Present Illness - Reason for Consult acute renal failure - History of Present Illness Reason for consultation: Acute kidney injury History of present illness: Patient is a 72-year-old male seen in renal consultation for acute kidney injury. Patient's creatinine in September 2021 was near 0.8-0.9. This admission it peaked at 1.53 and is 1.26 today. Patient is a poor historian. Patient was brought to the hospital due to worsening shortness of breath and chills. He was brought by the EMS. Patient states he has been feeling weak and has not been able to ambulate much. There was concern for UTI. Patient's blood cultures are positive for gram-positive cocci. UA suggestive of mild UTI. He is currently receiving IV antibiotics. Patient has a Rendon catheter and is nonoliguric. Patient does have history of diabetes. He was taking metformin outpatient which is currently held. Additionally he was also on lisinopril, Lasix and metolazone which are all currently held. He did receive 1 L bolus of normal saline as well as 1 dose of IV Lasix this admission. Potassium was as high as 5.9 this admission and is down to 4.5 today. Hemodynamically stable. Vital signs are stable. General: No acute distress. HEENT: Head exam is unremarkable. LUNGS: No audible rhonchi or wheezes. HEART: Rate and Rhythm are regular. ABDOMEN: Nontender. EXTREMITITES: No edema. Past Medical History Past Medical History: Heart Failure, COPD, Diabetes Mellitus, Hypertension, Sleep Apnea/CPAP/BIPAP Additional Past Medical History / Comment(s): irregular heartbeat, varicose veins, 2 herniated disk/degenerative disks, leaky heart valve, "blood clots in the heart" History of Any Multi-Drug Resistant Organisms: None Reported Past Surgical History: Appendectomy, Bowel Resection, Cardiac Valve Replacement, Heart Catheterization, Orthopedic Surgery, Pacemaker, Tonsillectomy Additional Past Surgical History / Comment(s): left shoulder surgery, surgery for sleep apnea, deana cataracts, Aortic Valve replacement (bovine) 06/2016 Past Anesthesia/Blood Transfusion Reactions: No Reported Reaction Type of Cardiac Device: Permanent Pacemaker Device Placement Date:: 12/24/2018 Past Psychological History: Depression Smoking Status: Former smoker Past Alcohol Use History: Occasional Past Drug Use History: None Reported - Past Family History Mother Family Medical History: No Reported History Medications and Allergies Home Medications Medication Instructions Recorded Confirmed Type metFORMIN HCL [Glucophage] 500 mg PO DAILY 10/15/14 07/20/23 History Atorvastatin [Lipitor] 40 mg PO HS 11/23/16 07/20/23 History Mv-Min/Folic/K1/Lycopen/Lutein 1 tab PO DAILY 08/25/21 07/20/23 History [Centrum Silver Men Tablet] OLANZapine 10 mg PO HS 08/25/21 07/20/23 History buPROPion XL [Wellbutrin XL] 300 mg PO DAILY 08/25/21 07/20/23 History lisinopriL [Zestril] 20 mg PO DAILY 08/25/21 07/20/23 History metOLazone 2.5 mg PO DAILY 08/25/21 07/20/23 History modafiniL [Provigil] 200 mg PO DAILY 08/25/21 07/20/23 History Furosemide [Lasix] 40 mg PO DAILY #30 tablet 09/23/21 07/20/23 Rx traMADol HCl [Ultram] 50 mg PO TID PRN tab 09/23/21 07/20/23 Rx Amitriptyline HCl [Elavil] 25 mg PO HS 07/20/23 07/20/23 History Bismuth Subsalicylate 525 mg PO DIRECTED PRN 07/20/23 07/20/23 History [Pepto-Bismol Ultra] Docusate [Colace] 100 mg PO DAILY 07/20/23 07/20/23 History Metoprolol Succinate [Toprol XL] 50 mg PO DAILY 07/20/23 07/20/23 History Nitroglycerin Sl Tabs [Nitrostat] 0.4 mg SL Q5M PRN 07/20/23 07/20/23 History Tamsulosin [Flomax] 0.4 mg PO HS 07/20/23 07/20/23 History Warfarin [Coumadin] 7.5 mg PO HS 07/20/23 07/20/23 History Allergies Allergy/AdvReac Type Severity Reaction Status Date / Time No Known Allergies Allergy Verified 07/20/23 22:41 Physical Exam Vitals: Vital Signs Temp Pulse Resp BP Pulse Ox 07/21/23 10:00 60 18 110/57 94 L 07/21/23 09:00 61 18 102/63 84 L 07/21/23 08:53 62 18 104/68 07/21/23 08:11 64 18 102/63 93 L 07/21/23 07:56 65 18 102/63 92 L 07/21/23 04:00 71 17 125/89 95 07/21/23 01:00 60 24 96/67 98 07/21/23 00:00 60 24 100/63 93 L 07/20/23 23:35 78 18 99/84 92 L 07/20/23 22:57 60 07/20/23 22:39 63 07/20/23 22:10 63 20 101/63 96 07/20/23 17:56 98 F 67 18 83/56 92 L Intake and Output 07/20/23 07/21/23 07/21/23 22:59 06:59 14:59 Other: Weight 136.078 kg Results - Lab Results Most recent lab results Calcium 8.7 mg/dL (8.4-10.2) 07/21/23 09:27 Phosphorus 2.8 mg/dL (2.5-4.5) 07/20/23 20:09 Magnesium 1.8 mg/dL (1.6-2.3) 07/20/23 20:09 07/20/23 19:03 07/21/23 09:27 Assessment and Plan Plan: Assessment: 1. Acute kidney injury, prerenal, secondary to severe sepsis improved with IV hydration. Creatinine peaked at 1.53 this admission and is 1.26 today. Creatinine in September 2021 was in the range of 0.8-0.9. 2. Severe sepsis with gram-positive bacteremia and UTI on antibiotics. 3. Hyperkalemia secondary to acute kidney injury, lisinopril. Improved. 4. Chronic systolic CHF ejection fraction of 40 to 45% on echocardiogram done September 2021. 5. Diabetes mellitus. Plan: Hold off on IV fluids due to underlying CHF. Encouraged oral intake. Avoid nephrotoxins. Hold diuretics. Continue to monitor renal function and urine output. Monitor vancomycin levels. Dose to be adjusted for renal function. Check renal ultrasound. Thank you for the consultation. I will continue to follow the patient with you during his hospital stay.
[2023-07-21] MEDS ORDERED: DEXTROSE 50% SYRINGE 50 ML IVP PRN ×2 (15:59)
--- NOTE | 2023-07-21 16:04 | P.HPIM ---
History of Present Illness H&P Date: 07/21/23 Chief Complaint: Confusion, sepsis, hyper This is a 72-year-old gentleman with past medical history significant for systolic CHF, COPD, morbid obesity, diabetes mellitus, hypertension, obstructive sleep apnea, permanent pacemaker, atrial fibrillation on Coumadin, aortic valve replacement(bovine), former nicotine dependence, depression, recurrent UTIs and multiple other medical issues brought into the ER via EMS with complaints of fevers, fatigue ,increased generalized weakness accompanied by confusion as reported per family. Patient reports having difficulty walking, diaphoresis. denies falls or trauma. Denies chest pain, palpitations or increased shortness of breath. Maintaining O2 sats In the 90s on 2 L nasal cannula. Last x-ray reporting mild cardiomegaly and pulmonary vascular congestion, no jojo pulmonary edema. Brain CT reported no acute findings. Afebrile, hypotensive on admission, maintaining O2 sats in the low 90s on room air and progressed to 2 L nasal cannula to maintain. WBC 25.7, hemoglobin 14.5 platelets 235, INR 3.3. Sodium 138, potassium 5.9, received hyperkalemic cocktail, decreased to 4.5, bicarb 28, BUN 42, creatinine 1.26, blood sugars controlled, lactic acid 2.5 decreased to 1.9. Troponin negative x 1. proBNP 5340. UA reported rare bacteria 6 WBCs, small leukocytes, negative nitrates, moderate blood. Influenza type A/type B/RSV/COVID not detected. Preliminary blood cultures reporting gram-positive cocci. Received a liter fluid bolus as well as a dose of Lasix. Review of Systems ROS Statement: Those systems with pertinent positive or pertinent negative responses have been documented in the HPI. ROS Other: All systems not noted in ROS Statement are negative. Past Medical History Past Medical History: Heart Failure, COPD, Diabetes Mellitus, Hypertension, Sleep Apnea/CPAP/BIPAP Additional Past Medical History / Comment(s): irregular heartbeat, varicose veins, 2 herniated disk/degenerative disks, leaky heart valve, "blood clots in the heart" History of Any Multi-Drug Resistant Organisms: None Reported Past Surgical History: Appendectomy, Bowel Resection, Cardiac Valve Replacement, Heart Catheterization, Orthopedic Surgery, Pacemaker, Tonsillectomy Additional Past Surgical History / Comment(s): left shoulder surgery, surgery for sleep apnea, deana cataracts, Aortic Valve replacement (bovine) 06/2016 Past Anesthesia/Blood Transfusion Reactions: No Reported Reaction Type of Cardiac Device: Permanent Pacemaker Device Placement Date:: 12/24/2018 Past Psychological History: Depression Smoking Status: Former smoker Past Alcohol Use History: Occasional Past Drug Use History: None Reported - Past Family History Mother Family Medical History: No Reported History Medications and Allergies Home Medications Medication Instructions Recorded Confirmed Type metFORMIN HCL [Glucophage] 500 mg PO DAILY 10/15/14 07/20/23 History Atorvastatin [Lipitor] 40 mg PO HS 11/23/16 07/20/23 History Mv-Min/Folic/K1/Lycopen/Lutein 1 tab PO DAILY 08/25/21 07/20/23 History [Centrum Silver Men Tablet] OLANZapine 10 mg PO HS 08/25/21 07/20/23 History buPROPion XL [Wellbutrin XL] 300 mg PO DAILY 08/25/21 07/20/23 History lisinopriL [Zestril] 20 mg PO DAILY 08/25/21 07/20/23 History metOLazone 2.5 mg PO DAILY 08/25/21 07/20/23 History modafiniL [Provigil] 200 mg PO DAILY 08/25/21 07/20/23 History Furosemide [Lasix] 40 mg PO DAILY #30 tablet 09/23/21 07/20/23 Rx traMADol HCl [Ultram] 50 mg PO TID PRN tab 09/23/21 07/20/23 Rx Amitriptyline HCl [Elavil] 25 mg PO HS 07/20/23 07/20/23 History Bismuth Subsalicylate 525 mg PO DIRECTED PRN 07/20/23 07/20/23 History [Pepto-Bismol Ultra] Docusate [Colace] 100 mg PO DAILY 07/20/23 07/20/23 History Metoprolol Succinate [Toprol XL] 50 mg PO DAILY 07/20/23 07/20/23 History Nitroglycerin Sl Tabs [Nitrostat] 0.4 mg SL Q5M PRN 07/20/23 07/20/23 History Tamsulosin [Flomax] 0.4 mg PO HS 07/20/23 07/20/23 History Warfarin [Coumadin] 7.5 mg PO HS 07/20/23 07/20/23 History Allergies Allergy/AdvReac Type Severity Reaction Status Date / Time No Known Allergies Allergy Verified 07/20/23 22:41 Physical Exam Vitals: Vital Signs Temp Pulse Resp BP Pulse Ox 07/21/23 10:00 60 18 110/57 94 L 07/21/23 09:00 61 18 102/63 84 L 07/21/23 08:53 62 18 104/68 07/21/23 08:11 64 18 102/63 93 L 07/21/23 07:56 65 18 102/63 92 L 07/21/23 04:00 71 17 125/89 95 07/21/23 01:00 60 24 96/67 98 07/21/23 00:00 60 24 100/63 93 L 07/20/23 23:35 78 18 99/84 92 L 07/20/23 22:57 60 07/20/23 22:39 63 07/20/23 22:10 63 20 101/63 96 07/20/23 17:56 98 F 67 18 83/56 92 L Intake and Output 07/20/23 07/21/23 07/21/23 22:59 06:59 14:59 Other: Weight 136.078 kg GENERAL EXAM: Alert and oriented x 2, pleasant, sitting up in bed, no acute distress HEAD: Normocephalic/atraumatic. EYES: Normal reaction of pupils, equal size. Conjunctiva pink, sclera white. NECK: Supple, no JVD, no thyroid enlargement, no adenopathy. LUNGS: Unlabored, equal air entry with bilateral bases diminished CVS: Irregular rate and rhythm, normal S1 and S2, systolic murmur ABDOMEN: Soft, nondistended, nontender. No hepatosplenomegaly, normal bowel sounds, no guarding or rigidity. EXTREMITIES: Right lower extremity warm, redness, positive edema. Denies calf pain. SKIN: Warm and dry, no rashes NERVOUS SYSTEM: Cranial nerves II through XII grossly intact. Results CBC & Chem 7: 07/20/23 19:03 07/21/23 09:27 Labs: Abnormal Lab Results - Last 24 Hours (Table) 07/20/23 07/20/23 07/20/23 Range/Units 19:03 20:09 22:09 WBC 25.7 H (3.8-10.6) k/uL Neutrophils # (Manual) 23.90 H (1.3-7.7) k/uL Lymphocytes # (Manual) 0.51 L (1.0-4.8) k/uL Monocytes # (Manual) 1.03 H (0-1.0) k/uL Metamyelocytes # (Man) 0.51 H (0) k/uL PT 33.6 H (10.0-12.5) sec INR 3.4 H (<1.2) APTT 48.7 H (22.0-30.0) sec Potassium 5.7 H (3.5-5.1) mmol/L BUN 34 H (9-20) mg/dL Creatinine 1.32 H (0.66-1.25) mg/dL Glucose 118 H (74-99) mg/dL Plasma Lactic Acid Epi (0.7-2.0) mmol/L Urine Protein (Negative) Urine Blood (Negative) Ur Leukocyte Esterase (Negative) Urine RBC (0-5) /hpf Urine WBC (0-5) /hpf Urine Bacteria (None) /hpf Hyaline Casts (0-2) /lpf Urine Mucus (None) /hpf 07/20/23 07/20/23 07/20/23 Range/Units 22:09 22:09 22:09 WBC (3.8-10.6) k/uL Neutrophils # (Manual) (1.3-7.7) k/uL Lymphocytes # (Manual) (1.0-4.8) k/uL Monocytes # (Manual) (0-1.0) k/uL Metamyelocytes # (Man) (0) k/uL PT (10.0-12.5) sec INR (<1.2) APTT (22.0-30.0) sec Potassium 5.9 H (3.5-5.1) mmol/L BUN 35 H (9-20) mg/dL Creatinine 1.53 H (0.66-1.25) mg/dL Glucose 122 H (74-99) mg/dL Plasma Lactic Acid Epi 2.5 H* (0.7-2.0) mmol/L Urine Protein Trace H (Negative) Urine Blood Moderate H (Negative) Ur Leukocyte Esterase Small H (Negative) Urine RBC 35 H (0-5) /hpf Urine WBC 6 H (0-5) /hpf Urine Bacteria Rare H (None) /hpf Hyaline Casts 9 H (0-2) /lpf Urine Mucus Few H (None) /hpf 07/21/23 07/21/23 07/21/23 Range/Units 01:58 09:27 09:27 WBC (3.8-10.6) k/uL Neutrophils # (Manual) (1.3-7.7) k/uL Lymphocytes # (Manual) (1.0-4.8) k/uL Monocytes # (Manual) (0-1.0) k/uL Metamyelocytes # (Man) (0) k/uL PT 32.5 H (10.0-12.5) sec INR 3.3 H (<1.2) APTT (22.0-30.0) sec Potassium (3.5-5.1) mmol/L BUN 42 H (9-20) mg/dL Creatinine 1.26 H (0.66-1.25) mg/dL Glucose 144 H (74-99) mg/dL Plasma Lactic Acid Epi 2.4 H* (0.7-2.0) mmol/L Urine Protein (Negative) Urine Blood (Negative) Ur Leukocyte Esterase (Negative) Urine RBC (0-5) /hpf Urine WBC (0-5) /hpf Urine Bacteria (None) /hpf Hyaline Casts (0-2) /lpf Urine Mucus (None) /hpf Microbiology - Last 24 Hours (Table) 07/20/23 22:11 Blood Culture Gram Stain - Preliminary Blood 07/20/23 21:56 Blood Culture Gram Stain - Preliminary Blood Assessment and Plan Assessment: Sepsis with bacteremia, etiology unclear, possibly related to right lower extremity cellulitis, possible acute UTI Bacteremia, gram-positive Acute hypoxic respiratory failure secondary to the above Acute metabolic encephalopathy secondary to all the above Acute renal failure secondary to the above, improving with IV fluids Hyperkalemia secondary to the above, improved History of advanced COPD Diabetes mellitus type 2 Chronic systolic CHF History of aortic valve replacement, bovine Chronic persistent atrial fibrillation on Coumadin Permanent pacemaker implantation, history of Hypertension Hyperlipidemia Prior nicotine dependence Morbid obesity, BMI 44 Plan: Continue on current medication regimen ,monitoring and symptomatic treatment. Procalcitonin, blood and urine cultures in progress. Antibiotics initiated. Close monitoring of renal function and electrolytes with repeat labs ordered for a.m. home medications-metformin, CRISS inhibitor, Lasix, metolazone held. NovoLog sliding scale, small dose of Levemir insulin ordered with close monitoring of Accu-Cheks. ID and cardiology consult in place with recommendations pending. Coumadin dosing as per pharmacy. Evaluated by nephrology with recommendations noted and appreciated. Renal ultrasound pending. PT/OT consulted. Case management consulted for potential subacute rehab at discharge. The impression and plan of care has been dictated as directed. : I performed a history and examination of this patient, discussed the same with the dictator. I agree with the dictator's note ,documented as a scribe. Any additional findings or plans will be noted.
--- NOTE | 2023-07-21 16:15 | US ---
EXAMINATION TYPE: US kidneys/renal and bladder DATE OF EXAM: 07/21/2023 COMPARISON: 09/18/2021 CLINICAL INDICATION: Male, 72 years old with history of pat; pat limited due to bowel gas patient not able to roll patient uncooperative. EXAM MEASUREMENTS: Right Kidney: 10.6 x 6.2 x 4.4 cm Left Kidney: 11.9 x 6.0 x 5.0 cm Right Kidney: No hydronephrosis or masses seen Left Kidney: No hydronephrosis or masses seen Bladder: Not visualized Bilateral Jets seen: no There is no evidence for hydronephrosis at this point in time. No nephrolithiasis is seen. No lorenzo s are identified. The urinary bladder is anechoic. Bilateral ureteral jets are seen. IMPRESSION: 1. No evidence for obstructive uropathy. 2. Cortical medullary differentiation maintained.
[2023-07-21] MEDS: INSULIN ASPART (NovoLOG) 100 UNIT/ML VIAL SQ SCH (18:02)
[2023-07-21 18:03] LABS: Glucose,Whole Blood 97 mg/dL (70-110)
[2023-07-21] MEDS: INSULIN DETEMIR (LEVEMIR) 100 UNIT/ML SYR SQ SCH (18:07)
[2023-07-21] MEDS: WARFARIN 0.5 MG TAB PO ONE (18:44)
[2023-07-21 19:55] LABS: Glucose,Whole Blood 111 mg/dL (70-110)
[2023-07-21] MEDS ORDERED: CEFEPIME 2 GM in SODIUM CHLORIDE 0.9% 100 ML IVPB SCH (20:00)
[2023-07-21] MEDS: ATORVASTATIN 40 MG TAB PO SCH (20:17)
[2023-07-21] MEDS: OLANZapine 10 MG TAB PO SCH (20:18)
[2023-07-21] MEDS ORDERED: WARFARIN 5 MG TAB PO SCH (21:00)
--- NOTE | 2023-07-21 21:08 | P.CONS ---
History of Present Illness - Reason for Consult Consult date: 07/21/23 Sepsis Requesting physician: Cory Goodman - Chief Complaint Weakness and chills x 1 day - History of Present Illness Patient is a 72-year-old male with a past medical history significant for diabetes mellitus hypertension sleep apnea COPD heart failure patient presenting to the ER for evaluation of shortness of breath and chills and weakness apparently the patient symptom has been going on for a day before the patient was brought to the hospital patient had fever at home and the family was concerned that he has UTI and the patient was noted to be more confused patient was brought into the hospital on arrival to the ER patient was afebrile patient was not tachycardic hypotensive but mildly hypoxic on supplemental oxygen patient did have a white count 25.7 with a left shift BUN/creatinine has been mildly elevated lactic acid was elevated liver enzymes are normal urine was mildly positive influenza RSV COVID testing was negative patient did have a ch est x-ray mild cardiomegaly pulmonary vascular congestion of the left pulmonary patient was started on vancomycin and cefepime infectious disease was consulted for further management of antibiotic therapy. At the time my evaluation the patient is pleasantly confused and cannot provide any history when asked specifically denies any headache chest pain shortness of breath occasional cough no nausea vomiting no abdominal pain or diarrhea patient was noted to have erythema to the left lower extremity has been having some dull aching pain to the left leg unable to quantify it any further denies any trauma to the left leg no open wound or any drainage Review of Systems Positive points has been mentioned in HPI complete review could not be obtained because of his underlying mental status Past Medical History Past Medical History: Heart Failure, COPD, Diabetes Mellitus, Hypertension, Sleep Apnea/CPAP/BIPAP Additional Past Medical History / Comment(s): irregular heartbeat, varicose veins, 2 herniated disk/degenerative disks, leaky heart valve, "blood clots in the heart" History of Any Multi-Drug Resistant Organisms: None Reported Past Surgical History: Appendectomy, Bowel Resection, Cardiac Valve Replacement, Heart Catheterization, Orthopedic Surgery, Pacemaker, Tonsillectomy Additional Past Surgical History / Comment(s): left shoulder surgery, surgery for sleep apnea, deana cataracts, Aortic Valve replacement (bovine) 06/2016 Past Anesthesia/Blood Transfusion Reactions: No Reported Reaction Type of Cardiac Device: Permanent Pacemaker Device Placement Date:: 12/24/2018 Past Psychological History: Depression Smoking Status: Former smoker Past Alcohol Use History: Occasional Past Drug Use History: None Reported - Past Family History Mother Family Medical History: No Reported History Medications and Allergies Home Medications Medication Instructions Recorded Confirmed Type Atorvastatin [Lipitor] 40 mg PO HS 11/23/16 07/20/23 History Mv-Min/Folic/K1/Lycopen/Lutein 1 tab PO DAILY 08/25/21 07/20/23 History [Centrum Silver Men Tablet] OLANZapine 10 mg PO HS 08/25/21 07/20/23 History buPROPion XL [Wellbutrin XL] 300 mg PO DAILY 08/25/21 07/20/23 History Amitriptyline HCl [Elavil] 25 mg PO HS 07/20/23 07/20/23 History Bismuth Subsalicylate 525 mg PO DIRECTED PRN 07/20/23 07/20/23 History [Pepto-Bismol Ultra] Docusate [Colace] 100 mg PO DAILY 07/20/23 07/20/23 History Metoprolol Succinate [Toprol XL] 50 mg PO DAILY 07/20/23 07/20/23 History Nitroglycerin Sl Tabs [Nitrostat] 0.4 mg SL Q5M PRN 07/20/23 07/20/23 History Tamsulosin [Flomax] 0.4 mg PO HS 07/20/23 07/20/23 History Acetaminophen Tab [Tylenol] 650 mg PO Q6HR PRN tab 07/26/23 Rx Benzocaine/Menthol Lozeng [Cepacol 1 each MUCOUS MEM Q4HR PRN lozenge 07/26/23 Rx lozenge] Budesonide-Formot 160-4.5 Mcg 2 puff INHALATION RT-BID each 07/26/23 Rx [Symbicort 160-4.5 Mcg Inhaler] Furosemide [Lasix] 40 mg PO BID@0900,1600 tab 07/26/23 Rx HYDROcodone/APAP 5-325MG [[place] 1 each PO Q6HR PRN #12 tab 07/26/23 Rx 5-325] INSULIN LISPRO (HumaLOG) [humaLOG] 0 unit SQ ACHS #10 ml 07/26/23 Rx Insulin Detemir (Levemir) [Levemir] 10 unit SQ DAILY@0700 each 07/26/23 Rx Ipratropium-Albuterol Nebulize 3 ml INHALATION Q4H PRN each 07/26/23 Rx [Duoneb 0.5 mg-3 mg/3 ml Soln] Ipratropium-Albuterol Nebulize 3 ml INHALATION RT-QID #120 each 07/26/23 Rx [Duoneb 0.5 mg-3 mg/3 ml Soln] Nystatin 100,000 Unit/gm Powd 1 applic TOPICAL TID each 07/26/23 Rx [Mycostatin Powder] Potassium Chloride ER [K-Dur 20] 20 meq PO DAILY #30 tab 07/26/23 Rx Warfarin [Coumadin] 5 mg PO HS #0 07/26/23 07/20/23 Rx polyethylene glycoL 3350 [Miralax] 17 gm PO BID PRN packet 07/26/23 Rx Cephalexin [Keflex] 500 mg PO Q6HR 10 Days #40 cap 07/28/23 Rx modafiniL [Provigil] 200 mg PO DAILY #2 tab 07/28/23 Rx Allergies Allergy/AdvReac Type Severity Reaction Status Date / Time No Known Allergies Allergy Verified 07/20/23 22:41 Physical Exam Vitals: Vital Signs Temp Pulse Resp BP Pulse Ox 07/21/23 08:53 62 18 104/68 07/21/23 07:56 65 18 102/63 92 L 07/21/23 04:00 71 17 125/89 95 07/21/23 01:00 60 24 96/67 98 07/21/23 00:00 60 24 100/63 93 L 07/20/23 23:35 78 18 99/84 92 L 07/20/23 22:57 60 07/20/23 22:39 63 07/20/23 22:10 63 20 101/63 96 07/20/23 17:56 98 F 67 18 83/56 92 L Intake and Output 07/20/23 07/21/23 07/21/23 22:59 06:59 14:59 Other: Weight 136.078 kg GENERAL DESCRIPTION: Elderly male lying in bed, no distress. No tachypnea or accessory muscle of respiration use. HEENT: Shows Pallor , no scleral icterus. Oral mucous membrane is dry. No pharyngeal erythema or thrush NECK: Trachea central, no thyromegaly. LUNGS: Unlabored breathing. Decreased breath sound at the base HEART: S1, S2, regular rate and rhythm. No loud murmur ABDOMEN: Soft, no tenderness , guarding or rigidity, no organomegaly EXTREMITIES: Left lower extremity with swelling redness warmth and tenderness to touch SKIN: No rash, no masses palpable. NEUROLOGICAL: The patient is awake, but pleasantly confused mood and affect normal. No neck rigidity Results CBC & Chem 7: 07/26/23 10:31 07/26/23 10:31 Labs: Abnormal Lab Results - Last 24 Hours (Table) 07/20/23 07/20/23 07/20/23 Range/Units 19:03 20:09 22:09 WBC 25.7 H (3.8-10.6) k/uL Neutrophils # (Manual) 23.90 H (1.3-7.7) k/uL Lymphocytes # (Manual) 0.51 L (1.0-4.8) k/uL Monocytes # (Manual) 1.03 H (0-1.0) k/uL Metamyelocytes # (Man) 0.51 H (0) k/uL PT 33.6 H (10.0-12.5) sec INR 3.4 H (<1.2) APTT 48.7 H (22.0-30.0) sec Potassium 5.7 H (3.5-5.1) mmol/L BUN 34 H (9-20) mg/dL Creatinine 1.32 H (0.66-1.25) mg/dL Glucose 118 H (74-99) mg/dL Plasma Lactic Acid Epi (0.7-2.0) mmol/L Urine Protein (Negative) Urine Blood (Negative) Ur Leukocyte Esterase (Negative) Urine RBC (0-5) /hpf Urine WBC (0-5) /hpf Urine Bacteria (None) /hpf Hyaline Casts (0-2) /lpf Urine Mucus (None) /hpf 07/20/23 07/20/23 07/20/23 Range/Units 22:09 22:09 22:09 WBC (3.8-10.6) k/uL Neutrophils # (Manual) (1.3-7.7) k/uL Lymphocytes # (Manual) (1.0-4.8) k/uL Monocytes # (Manual) (0-1.0) k/uL Metamyelocytes # (Man) (0) k/uL PT (10.0-12.5) sec INR (<1.2) APTT (22.0-30.0) sec Potassium 5.9 H (3.5-5.1) mmol/L BUN 35 H (9-20) mg/dL Creatinine 1.53 H (0.66-1.25) mg/dL Glucose 122 H (74-99) mg/dL Plasma Lactic Acid Epi 2.5 H* (0.7-2.0) mmol/L Urine Protein Trace H (Negative) Urine Blood Moderate H (Negative) Ur Leukocyte Esterase Small H (Negative) Urine RBC 35 H (0-5) /hpf Urine WBC 6 H (0-5) /hpf Urine Bacteria Rare H (None) /hpf Hyaline Casts 9 H (0-2) /lpf Urine Mucus Few H (None) /hpf 07/21/23 Range/Units 01:58 WBC (3.8-10.6) k/uL Neutrophils # (Manual) (1.3-7.7) k/uL Lymphocytes # (Manual) (1.0-4.8) k/uL Monocytes # (Manual) (0-1.0) k/uL Metamyelocytes # (Man) (0) k/uL PT (10.0-12.5) sec INR (<1.2) APTT (22.0-30.0) sec Potassium (3.5-5.1) mmol/L BUN (9-20) mg/dL Creatinine (0.66-1.25) mg/dL Glucose (74-99) mg/dL Plasma Lactic Acid Epi 2.4 H* (0.7-2.0) mmol/L Urine Protein (Negative) Urine Blood (Negative) Ur Leukocyte Esterase (Negative) Urine RBC (0-5) /hpf Urine WBC (0-5) /hpf Urine Bacteria (None) /hpf Hyaline Casts (0-2) /lpf Urine Mucus (None) /hpf Assessment and Plan (1) Left leg cellulitis Status: Acute Code(s): L03.116 - CELLULITIS OF LEFT LOWER LIMB SNOMED Code(s): 08460416513272018 (2) Sepsis Status: Acute Code(s): A41.9 - SEPSIS, UNSPECIFIED ORGANISM SNOMED Code(s): 03353251 Plan: 1patient presented to hospital with mental status changes in this patient noticed to have a Fever elevated white count elevated lactic acid did have criteria for SIRS/sepsis source likely left lower extremity cellulitis with diffuse swelling redness more likely streptococcal disease. 2patient with renal insufficiency high risk of nephrotoxicity from vancomycin. 3marked area of redness to left lower extremity. 4discontinue vancomycin and cefepime. 5we will start the patient on cefazolin 2 g every 8 hours. We will follow on clinical condition and cultures to further adjust medication if needed Thank you for this consultation we will follow the patient along with you Dictation was produced using [employer] dictation software. please excuse any grammatical, word or spelling errors. Time with Patient: Greater than 30
[2023-07-21] MEDS ORDERED: VANCOMYCIN 2,500 MG in SODIUM CHLORIDE 0.9% 500 ML 500 ML IVPB SCH (23:00)
[2023-07-21] MEDS: IPRATROPIUM-ALBUTEROL 3 ML NEB INHALATION PRN (23:33)
[2023-07-22] MEDS ORDERED: ACETAMINOPHEN TAB 325 MG TAB PO PRN (04:50)
[2023-07-22 06:23] LABS: Glucose,Whole Blood 104 mg/dL (70-110)
[2023-07-22 09:06] LABS: Basophils % (A) 0 %; Eosinophils % (A) 0 %; HCT 38.9 % (39.0-53.0); Lymphocytes # (A) 0.6 k/uL (1.0-4.8); Lymphocytes % (A) 4 %; MCH 30.5 pg (25.0-35.0); MCHC 30.9 g/dL (31.0-37.0); MCV 98.7 fL (80.0-100.0); Mean Platelet Volume 7.6; Monocytes # (A) 0.7 k/uL (0-1.0); Monocytes % (A) 5 %; Neutrophils # (A) 12.3 k/uL (1.3-7.7); Neutrophils % (A) 89 %; Platelet Count 188 k/uL (150-450); RBC 3.94 m/uL (4.30-5.90); RDW 13.8 % (11.5-15.5); WBC 13.9 k/uL (3.8-10.6)
[2023-07-22 09:26] LABS: INR 1.8 (<1.2); Prothrombin Time 18.6 sec (10.0-12.5)
[2023-07-22 09:46] LABS: African American GFR (CKD) 81 (>60 ml/min/1.73 sqM); Anion Gap 10 mmol/L; Blood Urea Nitrogen 46 mg/dL (9-20); Calcium 8.7 mg/dL (8.4-10.2); Carbon Dioxide 26 mmol/L (22-30); Chloride 103 mmol/L (98-107); Glucose 102 mg/dL (74-99); Non-African American GFR(CKD) 70 (>60 ml/min/1.73 sqM); Potassium 4.3 mmol/L (3.5-5.1); Sodium 139 mmol/L (137-145)
[2023-07-22 11:15] LABS: Glucose,Whole Blood 188 mg/dL (70-110)
--- NOTE | 2023-07-22 11:49 | P.PN ---
Subjective Progress Note Date: 07/22/23 Principal diagnosis: Reason for follow-up is left lower extremity cellulitis with bacteremia Patient is a 72-year-old male with a past medical history significant for diabetes mellitus hypertension sleep apnea COPD heart failure patient presenting to the ER for evaluation of shortness of breath and chills and weakness, patient did have mental status changes and noticed to have left lower extremity cellulitis and subsequently blood cultures came back positive with b eta-hemolytic strep group C. On today's evaluation that is 07/22/2023, Patient did have a low-grade fever 100.6 around 4 AM the patient is afebrile since then the patient is more awake and alert and is breathing comfortably on 3 L nasal cannula oxygen denies any chest pain or cough or any worsening pain to the left lower extremity no nausea vomiting or diarrhea. Patient white count is down to 13.9, creatinine is 1.06 Objective - Vital Signs Vital signs: Vital Signs Temp 98.4 F 07/22/23 09:16 Pulse 62 07/22/23 09:16 Resp 20 07/22/23 09:16 BP 129/60 07/22/23 09:16 Pulse Ox 98 07/22/23 09:16 FiO2 Intake & Output 07/21/23 07/22/23 07/22/23 18:59 06:59 18:59 Intake Total 130 40 20 Output Total 700 Balance 130 -660 20 Weight 136.078 kg Intake: IV 20 40 20 Invasive Line 1 10 20 10 Invasive Line 2 10 20 10 Oral 110 Output: Urine 700 Other: Voiding Method Indwelling Catheter Indwelling Catheter Indwelling Catheter - Exam GENERAL DESCRIPTION: An elderly male lying in bed in no distress RESPIRATORY SYSTEM: Unlabored breathing , decreased breath sounds at bases HEART: S1 S2 regular rate and rhythm , ABDOMEN: Soft , no tenderness EXTREMITIES: Left leg with diffuse swelling and redness no open wound or any drainage - Labs CBC & Chem 7: 07/22/23 07:46 07/22/23 07:46 Labs: Abnormal Lab Results - Last 24 Hours (Table) 07/21/23 07/21/23 07/22/23 Range/Units 09:27 19:54 07:46 WBC 13.9 H (3.8-10.6) k/uL RBC 3.94 L (4.30-5.90) m/uL Hgb 12.0 L (13.0-17.5) gm/dL Hct 38.9 L (39.0-53.0) % MCHC 30.9 L (31.0-37.0) g/dL Neutrophils # 12.3 H (1.3-7.7) k/uL Lymphocytes # 0.6 L (1.0-4.8) k/uL PT (10.0-12.5) sec INR (<1.2) BUN (9-20) mg/dL Glucose (74-99) mg/dL POC Glucose (mg/dL) 111 H (70-110) mg/dL Procalcitonin 2.13 H (0.02-0.09) ng/mL 07/22/23 07/22/23 07/22/23 Range/Units 07:46 07:46 11:13 WBC (3.8-10.6) k/uL RBC (4.30-5.90) m/uL Hgb (13.0-17.5) gm/dL Hct (39.0-53.0) % MCHC (31.0-37.0) g/dL Neutrophils # (1.3-7.7) k/uL Lymphocytes # (1.0-4.8) k/uL PT 18.6 H (10.0-12.5) sec INR 1.8 H (<1.2) BUN 46 H (9-20) mg/dL Glucose 102 H (74-99) mg/dL POC Glucose (mg/dL) 188 H (70-110) mg/dL Procalcitonin (0.02-0.09) ng/mL Microbiology - Last 24 Hours (Table) 07/20/23 21:56 Blood Culture Gram Stain - Preliminary Blood Blood Culture - Preliminary Beta Hemolytic Strep Group C 07/20/23 22:11 Blood Culture Gram Stain - Preliminary Blood Blood Culture - Preliminary Beta Hemolytic Strep Group C 07/20/23 23:22 Urine Culture - Final Urine,Catheterized Assessment and Plan (1) Left leg cellulitis Current Visit: Yes Status: Acute Code(s): L03.116 - CELLULITIS OF LEFT LOWER LIMB SNOMED Code(s): 33732368623190453 (2) Sepsis Current Visit: Yes Status: Acute Code(s): A41.9 - SEPSIS, UNSPECIFIED ORGANISM SNOMED Code(s): 06624096 Plan: 1patient presented to hospital with mental status changes in this patient noticed to have a Fever elevated white count elevated lactic acid did have criteria for SIRS/sepsis source likely left lower extremity cellulitis with diffuse swelling redness more likely streptococcal disease. 2patient with renal insufficiency high risk of nephrotoxicity from vancomycin. 3marked area of redness to left lower extremity. 4streptococcal bacteremia source is left lower extremity cellulitis blood culture repeated document clearance of bacteremia 5patient antibiotic has been adjusted to cefazolin 2 g every 8 hours to continue antibiotic medical course closely Dictation was produced using [employer] dictation software. please excuse any grammatical, word or spelling errors. Time with Patient: Less than 30
[2023-07-22] MEDS: NYSTATIN 100,000 UNIT/GM POWD 15 GM TOPICAL SCH (12:09)
--- NOTE | 2023-07-22 13:01 | P.PN ---
Subjective Progress Note Date: 07/22/23 This is a 72-year-old gentleman with past medical history significant for systolic CHF, COPD, morbid obesity, diabetes mellitus, hypertension, obstructive sleep apnea, permanent pacemaker, atrial fibrillation on Coumadin, aortic valve replacement(bovine), former nicotine dependence, depression, recurrent UTIs and multiple other medical issues brought into the ER via EMS with complaints of fevers, fatigue ,increased generalized weakness accompanied by confusion as reported per family. Patient reports having difficulty walking, diaphoresis. denies falls or trauma. Denies chest pain, palpitations or increased shortness of breath. Maintaining O2 sats In the 90s on 2 L nasal cannula. Last x-ray reporting mild cardiomegaly and pulmonary vascular congestion, no jojo pulmonary edema. Brain CT reported no acute findings. Afebrile, hypotensive on admission, maintaining O2 sats in the low 90s on room air and progressed to 2 L nasal cannula to maintain. WBC 25.7, hemoglobin 14.5 platelets 235, INR 3.3. Sodium 138, potassium 5.9, received hyperkalemic cocktail, decreased to 4.5, bicarb 28, BUN 42, creatinine 1.26, blood sugars controlled, lactic acid 2.5 decreased to 1.9. Troponin negative x 1. proBNP 5340. UA reported rare bacteria 6 WBCs, small leukocytes, negative nitrates, moderate blood. Influenza type A/type B/RSV/COVID not detected. Preliminary blood cultures reporting gram-positive cocci. Received a liter fluid bolus as well as a dose of Lasix. 07/22. Patient seen and examined. Blood work done this morning showed WBC 13.9, hemoglobin 12, platelet count 188. INR is 1.8. Still has redness of left lower extremity. Patient lethargic REVIEW OF SYSTEMS: CONSTITUTIONAL: No fever, no malaise,. CARDIOVASCULAR: No chest pain, no palpitations, no syncope. PULMONARY: No shortness of breath, no cough, GASTROINTESTINAL: No diarrhea, no nausea, no vomiting, no abdominal pain. NEUROLOGICAL: No headaches, no weakness, PHYSICAL EXAMINATION: GENERAL: The patient is alert , not in any acute distress. Well developed, well nourished. HEENT: Pupils are round and equally reacting to light. EOMI. No scleral icterus. No conjunctival pallor. Normocephalic, atraumatic. No pharyngeal erythema. No thyromegaly. CARDIOVASCULAR: S1 and S2 present. No murmurs, rubs, or gallops. PULMONARY: Chest is clear to auscultation, no wheezing or crackles. ABDOMEN: Soft, nontender, nondistended, normoactive bowel sounds. No palpable organomegaly. MUSCULOSKELETAL: Left lower extremity erythema seen EXTREMITIES: No cyanosis, clubbing, or pedal edema. NEUROLOGICAL: Gross neurological examination did not reveal any focal deficits. SKIN: No rashes. Assessment and plan Sepsis with bacteremia, etiology unclear, possibly related to right lower extremity cellulitis, possible acute UTI Bacteremia, gram-positive Acute hypoxic respiratory failure secondary to the above Acute metabolic encephalopathy secondary to all the above Acute renal failure secondary to the above, improving with IV fluids Hyperkalemia secondary to the above, improved History of advanced COPD Diabetes mellitus type 2 Chronic systolic CHF History of aortic valve replacement, bovine Chronic persistent atrial fibrillation on Coumadin Permanent pacemaker implantation, history of Hypertension Hyperlipidemia Prior nicotine dependence Morbid obesity, BMI 44 Monitor vital signs Monitor CBC Monitor CMP Continue telemetry monitoring Encourage use of incentive spirometer Follow-up on blood cultures Hold blood pressure medications Hold off on IV fluids due to underlying CHF. Encouraged oral intake. Avoid nephrotoxins. Hold diuretics Continue IV cefazolin ID following Nephrology following Labs and medication were reviewed.. Continue same treatment. Continue with symptomatic treatment. Resume home medication. Monitor labs and vitals. DVT and GI prophylaxis. Further recommendations as per clinical course of the patient Dictation was produced using [employer] dictation software. please excuse any grammatical, word or spelling errors. Objective - Vital Signs Vital signs: Vital Signs Temp 98.4 F 07/22/23 09:16 Pulse 62 07/22/23 09:16 Resp 20 07/22/23 09:16 BP 129/60 07/22/23 09:16 Pulse Ox 98 07/22/23 09:16 FiO2 Intake & Output 07/21/23 07/22/23 07/22/23 18:59 06:59 18:59 Intake Total 130 40 20 Output Total 700 Balance 130 -660 20 Weight 136.078 kg Intake: IV 20 40 20 Invasive Line 1 10 20 10 Invasive Line 2 10 20 10 Oral 110 Output: Urine 700 Other: Voiding Method Indwelling Catheter Indwelling Catheter Indwelling Catheter - Labs CBC & Chem 7: 07/22/23 07:46 07/22/23 07:46 Labs: Abnormal Lab Results - Last 24 Hours (Table) 07/21/23 07/21/23 07/21/23 Range/Units 09:27 09:27 09:27 WBC (3.8-10.6) k/uL RBC (4.30-5.90) m/uL Hgb (13.0-17.5) gm/dL Hct (39.0-53.0) % MCHC (31.0-37.0) g/dL Neutrophils # (1.3-7.7) k/uL Lymphocytes # (1.0-4.8) k/uL PT 32.5 H (10.0-12.5) sec INR 3.3 H (<1.2) BUN 42 H (9-20) mg/dL Creatinine 1.26 H (0.66-1.25) mg/dL Glucose 144 H (74-99) mg/dL POC Glucose (mg/dL) (70-110) mg/dL Procalcitonin 2.13 H (0.02-0.09) ng/mL 07/21/23 07/22/23 07/22/23 Range/Units 19:54 07:46 07:46 WBC 13.9 H (3.8-10.6) k/uL RBC 3.94 L (4.30-5.90) m/uL Hgb 12.0 L (13.0-17.5) gm/dL Hct 38.9 L (39.0-53.0) % MCHC 30.9 L (31.0-37.0) g/dL Neutrophils # 12.3 H (1.3-7.7) k/uL Lymphocytes # 0.6 L (1.0-4.8) k/uL PT 18.6 H (10.0-12.5) sec INR 1.8 H (<1.2) BUN (9-20) mg/dL Creatinine (0.66-1.25) mg/dL Glucose (74-99) mg/dL POC Glucose (mg/dL) 111 H (70-110) mg/dL Procalcitonin (0.02-0.09) ng/mL Microbiology - Last 24 Hours (Table) 07/20/23 21:56 Blood Culture Gram Stain - Preliminary Blood Blood Culture - Preliminary Beta Hemolytic Strep Group C 07/20/23 22:11 Blood Culture Gram Stain - Preliminary Blood Blood Culture - Preliminary Beta Hemolytic Strep Group C 07/20/23 23:22 Urine Culture - Final Urine,Catheterized
--- NOTE | 2023-07-22 15:21 | P.PN ---
Subjective Progress Note Date: 07/22/23 Following patient for LYNDSEY. States he is feeling better and denies any new complaints. Vital signs are stable. General: No acute distress. HEENT: Head exam is unremarkable. LUNGS: No audible rhonchi or wheezes. HEART: Rate and Rhythm are regular. ABDOMEN: Nontender. EXTREMITITES: + edema. Objective - Vital Signs Vital signs: Vital Signs Temp 98.4 F 07/22/23 09:16 Pulse 62 07/22/23 09:16 Resp 20 07/22/23 09:16 BP 129/60 07/22/23 09:16 Pulse Ox 98 07/22/23 09:16 FiO2 Intake & Output 07/21/23 07/22/23 07/22/23 18:59 06:59 18:59 Intake Total 130 40 20 Output Total 700 Balance 130 -660 20 Weight 136.078 kg Intake: IV 20 40 20 Invasive Line 1 10 20 10 Invasive Line 2 10 20 10 Oral 110 Output: Urine 700 Other: Voiding Method Indwelling Catheter Indwelling Catheter Indwelling Catheter - Labs CBC & Chem 7: 07/22/23 07:46 07/22/23 07:46 Labs: Abnormal Lab Results - Last 24 Hours (Table) 07/21/23 07/21/23 07/22/23 Range/Units 09:27 19:54 07:46 WBC 13.9 H (3.8-10.6) k/uL RBC 3.94 L (4.30-5.90) m/uL Hgb 12.0 L (13.0-17.5) gm/dL Hct 38.9 L (39.0-53.0) % MCHC 30.9 L (31.0-37.0) g/dL Neutrophils # 12.3 H (1.3-7.7) k/uL Lymphocytes # 0.6 L (1.0-4.8) k/uL PT (10.0-12.5) sec INR (<1.2) BUN (9-20) mg/dL Glucose (74-99) mg/dL POC Glucose (mg/dL) 111 H (70-110) mg/dL Procalcitonin 2.13 H (0.02-0.09) ng/mL 07/22/23 07/22/23 07/22/23 Range/Units 07:46 07:46 11:13 WBC (3.8-10.6) k/uL RBC (4.30-5.90) m/uL Hgb (13.0-17.5) gm/dL Hct (39.0-53.0) % MCHC (31.0-37.0) g/dL Neutrophils # (1.3-7.7) k/uL Lymphocytes # (1.0-4.8) k/uL PT 18.6 H (10.0-12.5) sec INR 1.8 H (<1.2) BUN 46 H (9-20) mg/dL Glucose 102 H (74-99) mg/dL POC Glucose (mg/dL) 188 H (70-110) mg/dL Procalcitonin (0.02-0.09) ng/mL Microbiology - Last 24 Hours (Table) 07/20/23 21:56 Blood Culture Gram Stain - Preliminary Blood Blood Culture - Preliminary Beta Hemolytic Strep Group C 07/20/23 22:11 Blood Culture Gram Stain - Preliminary Blood Blood Culture - Preliminary Beta Hemolytic Strep Group C 07/20/23 23:22 Urine Culture - Final Urine,Catheterized Assessment and Plan Plan: Assessment: 1. Acute kidney injury, prerenal, secondary to severe sepsis improved with IV hydration. Creatinine peaked at 1.53 this admission and is 1.0 today. Creatinine in September 2021 was in the range of 0.8-0.9. Renal US no hydronephrosis. 2. Severe sepsis with gram-positive bacteremia and UTI on antibiotics. 3. Hyperkalemia secondary to acute kidney injury, lisinopril. Improved. 4. Chronic systolic CHF ejection fraction of 40 to 45% on echocardiogram done September 2021. 5. Diabetes mellitus. Plan: Maintain off on IV fluids due to underlying CHF. Encouraged oral intake. Avoid nephrotoxins. Hold diuretics, likely can restart home Lasix tomorrow. Continue to monitor renal function and urine output. Monitor vancomycin levels. Dose to be adjusted for renal function. Check renal ultrasound.
[2023-07-22 16:16] LABS: Glucose,Whole Blood 142 mg/dL (70-110)
--- NOTE | 2023-07-22 16:34 | US ---
EXAMINATION TYPE: US groin LT DATE OF EXAM: 07/22/2023 COMPARISON: NONE CLINICAL INDICATION: Male, 72 years old with history of redness, hot to touch; Redness left groin TECHNIQUE: Grayscale imaging of the groin area of concern. FINDINGS: Scanned within area of concern, left groin, large amount of soft tissue edema noted. Multi ple lymph nodes left groin, largest = 4.4 x 1.6 x 3.6cm these lymph nodes have normal fatty hilum. IMPRESSION: 1. Soft tissue edema without evidence of organizing fluid collection. 2. Lymph nodes likely reactive given normal fatty hilum.
[2023-07-22] MEDS: WARFARIN 7.5 MG TAB PO ONE (16:53)
[2023-07-22] MEDS: traMADol 50 MG TAB PO PRN (19:41)
[2023-07-22 19:55] LABS: Glucose,Whole Blood 106 mg/dL (70-110)
[2023-07-23 06:42] LABS: Glucose,Whole Blood 134 mg/dL (70-110)
[2023-07-23 08:34] LABS: INR 1.7 (<1.2); Prothrombin Time 16.9 sec (10.0-12.5)
[2023-07-23 11:51] LABS: Glucose,Whole Blood 109 mg/dL (70-110)
--- NOTE | 2023-07-23 12:09 | P.PN ---
Subjective Progress Note Date: 07/23/23 Following patient for LYNDSEY. States he is feeling better and denies any new complaints. Vital signs are stable. General: No acute distress. HEENT: Head exam is unremarkable. LUNGS: No audible rhonchi or wheezes. HEART: Rate and Rhythm are regular. ABDOMEN: Nontender. EXTREMITITES: + edema. Objective - Vital Signs Vital signs: Vital Signs Temp 98.2 F 07/23/23 11:51 Pulse 70 07/23/23 11:51 Resp 20 07/23/23 11:51 BP 131/75 07/23/23 11:51 Pulse Ox 95 07/23/23 11:51 FiO2 Intake & Output 07/22/23 07/23/23 07/23/23 18:59 06:59 18:59 Intake Total 908 140 Output Total 250 950 200 Balance 658 -950 -60 Weight 134 kg Intake: IV 20 20 Invasive Line 1 10 Invasive Line 2 10 Invasive Line 3 10 Invasive Line 4 10 Intake, IV Titration 50 Amount ceFAZolin 2 gm In Sodium 50 Chloride 0.9% 50 ml @ 100 mls/hr IVPB Q8HR [facility] Rx# :[id number] Oral 838 120 Output: Urine 250 950 200 Uretheral (Rendon) 200 Other: Voiding Method Indwelling Catheter Indwelling Catheter Indwelling Catheter - Labs CBC & Chem 7: 07/22/23 07:46 07/22/23 07:46 Labs: Abnormal Lab Results - Last 24 Hours (Table) 07/22/23 07/22/23 07/23/23 Range/Units 07:46 16:15 06:40 PT (10.0-12.5) sec INR (<1.2) POC Glucose (mg/dL) 142 H 134 H (70-110) mg/dL Hemoglobin A1c 6.3 H (<=6.0) % 07/23/23 Range/Units 07:34 PT 16.9 H (10.0-12.5) sec INR 1.7 H (<1.2) POC Glucose (mg/dL) (70-110) mg/dL Hemoglobin A1c (<=6.0) % Microbiology - Last 24 Hours (Table) 07/20/23 21:56 Blood Culture Gram Stain - Preliminary Blood Blood Culture - Preliminary Beta Hemolytic Strep Group C 07/20/23 22:11 Blood Culture Gram Stain - Preliminary Blood Blood Culture - Preliminary Beta Hemolytic Strep Group C Assessment and Plan Plan: Assessment: 1. Acute kidney injury, prerenal, secondary to severe sepsis improved with IV hydration. Creatinine peaked at 1.53 this admission and is 1.0 05/21. Creat inine in September 2021 was in the range of 0.8-0.9. Renal US no hydronephrosis. 2. Severe sepsis with gram-positive bacteremia and UTI on antibiotics. 3. Hyperkalemia secondary to acute kidney injury, lisinopril. Improved. 4. Chronic systolic CHF ejection fraction of 40 to 45% on echocardiogram done September 2021. 5. Diabetes mellitus. Plan: Maintain off on IV fluids due to underlying CHF. Encouraged oral intake. Avoid nephrotoxins. Restart home Lasix 40 mg twice a day. Continue to monitor renal function and urine output.
--- NOTE | 2023-07-23 12:33 | P.PN ---
Subjective Progress Note Date: 07/23/23 This is a 72-year-old gentleman with past medical history significant for systolic CHF, COPD, morbid obesity, diabetes mellitus, hypertension, obstructive sleep apnea, permanent pacemaker, atrial fibrillation on Coumadin, aortic valve replacement(bovine), former nicotine dependence, depression, recurrent UTIs and multiple other medical issues brought into the ER via EMS with complaints of fevers, fatigue ,increased generalized weakness accompanied by confusion as reported per family. Patient reports having difficulty walking, diaphoresis. denies falls or trauma. Denies chest pain, palpitations or increased shortness of breath. Maintaining O2 sats In the 90s on 2 L nasal cannula. Last x-ray reporting mild cardiomegaly and pulmonary vascular congestion, no jojo pulmonary edema. Brain CT reported no acute findings. Afebrile, hypotensive on admission, maintaining O2 sats in the low 90s on room air and progressed to 2 L nasal cannula to maintain. WBC 25.7, hemoglobin 14.5 platelets 235, INR 3.3. Sodium 138, potassium 5.9, received hyperkalemic cocktail, decreased to 4.5, bicarb 28, BUN 42, creatinine 1.26, blood sugars controlled, lactic acid 2.5 decreased to 1.9. Troponin negative x 1. proBNP 5340. UA reported rare bacteria 6 WBCs, small leukocytes, negative nitrates, moderate blood. Influenza type A/type B/RSV/COVID not detected. Preliminary blood cultures reporting gram-positive cocci. Received a liter fluid bolus as well as a dose of Lasix. 07/22. Patient seen and examined. Blood work done this morning showed WBC 13.9, hemoglobin 12, platelet count 188. INR is 1.8. Still has redness of left lower extremity. Patient lethargic 07/23. Patient seen and examined. Patient developed redness in left groin, ultrasound of left groin ordered. Still swelling and redness of left lower extremity REVIEW OF SYSTEMS: CONSTITUTIONAL: No fever, no malaise,. CARDIOVASCULAR: No chest pain, no palpitations, no syncope. PULMONARY: No shortness of breath, no cough, GASTROINTESTINAL: No diarrhea, no nausea, no vomiting, no abdominal pain. NEUROLOGICAL: No headaches, no weakness, PHYSICAL EXAMINATION: GENERAL: The patient is alert , not in any acute distress. Well developed, well nourished. HEENT: Pupils are round and equally reacting to light. EOMI. No scleral icterus. No conjunctival pallor. Normocephalic, atraumatic. No pharyngeal erythema. No thyromegaly. CARDIOVASCULAR: S1 and S2 present. No murmurs, rubs, or gallops. PULMONARY: Chest is clear to auscultation, no wheezing or crackles. ABDOMEN: Soft, nontender, nondistended, normoactive bowel sounds. No palpable organomegaly. MUSCULOSKELETAL: Left lower extremity erythema seen EXTREMITIES: No cyanosis, clubbing, or pedal edema. NEUROLOGICAL: Gross neurological examination did not reveal any focal deficits. SKIN: No rashes. Assessment and plan Sepsis with bacteremia, etiology unclear, possibly related to right lower extremity cellulitis, possible acute UTI Bacteremia, gram-positive Acute hypoxic respiratory failure secondary to the above Acute metabolic encephalopathy secondary to all the above Acute renal failure secondary to the above, improving with IV fluids Hyperkalemia secondary to the above, improved History of advanced COPD Diabetes mellitus type 2 Chronic systolic CHF History of aortic valve replacement, bovine Chronic persistent atrial fibrillation on Coumadin Permanent pacemaker implantation, history of Hypertension Hyperlipidemia Prior nicotine dependence Morbid obesity, BMI 44 Monitor vital signs Monitor CBC Monitor CMP Continue telemetry monitoring Encourage use of incentive spirometer Follow-up on blood cultures Hold blood pressure medications Hold off on IV fluids due to underlying CHF. Encouraged oral intake. Avoid nephrotoxins. Hold diuretics Continue IV cefazolin ID following Nephrology following Labs and medication were reviewed.. Continue same treatment. Continue with symptomatic treatment. Resume home medication. Monitor labs and vitals. DVT and GI prophylaxis. Further recommendations as per clinical course of the patient Dictation was produced using [email or web address] dictation software. please excuse any grammatical, word or spelling errors. Objective - Vital Signs Vital signs: Vital Signs Temp 97.5 F L 07/23/23 08:32 Pulse 81 07/23/23 08:32 Resp 22 07/23/23 08:32 BP 167/74 07/23/23 08:32 Pulse Ox 98 07/23/23 08:32 FiO2 Intake & Output 07/22/23 07/23/23 07/23/23 18:59 06:59 18:59 Intake Total 908 140 Output Total 250 950 200 Balance 658 -950 -60 Weight 134 kg Intake: IV 20 20 Invasive Line 1 10 Invasive Line 2 10 Invasive Line 3 10 Invasive Line 4 10 Intake, IV Titration 50 Amount ceFAZolin 2 gm In Sodium 50 Chloride 0.9% 50 ml @ 100 mls/hr IVPB Q8HR [facility] Rx# :[id number] Oral 838 120 Output: Urine 250 950 200 Uretheral (Rendon) 200 Other: Voiding Method Indwelling Catheter Indwelling Catheter Indwelling Catheter - Labs CBC & Chem 7: 07/22/23 07:46 07/22/23 07:46 Labs: Abnormal Lab Results - Last 24 Hours (Table) 07/22/23 07/22/23 07/22/23 Range/Units 07:46 11:13 16:15 PT (10.0-12.5) sec INR (<1.2) POC Glucose (mg/dL) 188 H 142 H (70-110) mg/dL Hemoglobin A1c 6.3 H (<=6.0) % 07/23/23 07/23/23 Range/Units 06:40 07:34 PT 16.9 H (10.0-12.5) sec INR 1.7 H (<1.2) POC Glucose (mg/dL) 134 H (70-110) mg/dL Hemoglobin A1c (<=6.0) % Microbiology - Last 24 Hours (Table) 07/20/23 21:56 Blood Culture Gram Stain - Preliminary Blood Blood Culture - Preliminary Beta Hemolytic Strep Group C 07/20/23 22:11 Blood Culture Gram Stain - Preliminary Blood Blood Culture - Preliminary Beta Hemolytic Strep Group C
[2023-07-23 16:36] LABS: Glucose,Whole Blood 105 mg/dL (70-110)
[2023-07-23] MEDS ORDERED: ceFAZolin 3 GM in SODIUM CHLORIDE 0.9% 100 ML IVPB ONE (17:17)
[2023-07-23] MEDS: ceFAZolin 3 GM in SODIUM CHLORIDE 0.9% 100 ML IVPB SCH (17:17)
[2023-07-23] MEDS: FUROSEMIDE 40 MG TAB PO SCH (17:18)
[2023-07-23] MEDS: LACTOBACILLUS ACIDOPHILUS/PECT 1 EACH CAPSULE PO SCH (17:18)
[2023-07-23] MEDS: WARFARIN 5 MG TAB PO ONE (17:18)
--- NOTE | 2023-07-23 17:46 | CT ---
EXAMINATION TYPE: CT lower extremity LT w con CT DLP: 1435.4 mGycm, Automated exposure control for dose reduction was used. DATE OF EXAM: 07/23/2023 5:13 PM COMPARISON: Ultrasound 07/22/2023. CLINICAL INDICATION:Male, 72 years old with history of left leg abscess; PHH, left leg/inner thigh ab scess. left mid tib fib and down red and inflamed TECHNIQUE: Axial images were obtained of the CT lower extremity LT w con, Additional coronal and sagi ttal reformatted images and soft tissue and bone window were obtained for review. 3-D reconstruction was created on a separate workstation. Contrast used:100ML mL of Isovue 300 with IV Contrast, (None if empty) Oral contrast used: (None if empty) FINDINGS: There is streaky edema throughout the lower extremity. There is no organizing fluid collect ion visualized. Multiple probable reactive lymph nodes are present. There is no evidence of fracture, subluxation, or dislocation. Bone island present within the posterior acetabulum. No osseous erosion . No focal muscular atrophy or edema is identified. No radiopaque foreign body identified. IMPRESSION: No evidence for organizing fluid collection similar to findings on ultrasound. Cellulitis changes not ed with associated reactive lymphadenopathy.
[2023-07-23] MEDS: CLINDAMYCIN 900 MG in DEXTROSE 5% IN WATER 50 ML IVPB SCH (17:50)
[2023-07-23 20:05] LABS: Glucose,Whole Blood 171 mg/dL (70-110)
[2023-07-24 05:55] LABS: Glucose,Whole Blood 100 mg/dL (70-110)
[2023-07-24 08:01] LABS: INR 2.1 (<1.2); Prothrombin Time 20.9 sec (10.0-12.5)
[2023-07-24 08:07] LABS: Basophils % (A) 0 %; Eosinophils # (A) 0.2 k/uL (0-0.7); Eosinophils % (A) 2 %; HCT 37.3 % (39.0-53.0); HGB 11.9 gm/dL (13.0-17.5); Lymphocytes # (A) 0.8 k/uL (1.0-4.8); Lymphocytes % (A) 7 %; MCH 31.5 pg (25.0-35.0); MCHC 31.9 g/dL (31.0-37.0); MCV 98.8 fL (80.0-100.0); Mean Platelet Volume 7.4; Monocytes # (A) 1.3 k/uL (0-1.0); Monocytes % (A) 10 %; Neutrophils # (A) 9.9 k/uL (1.3-7.7); Neutrophils % (A) 78 %; Platelet Count 183 k/uL (150-450); RBC 3.77 m/uL (4.30-5.90); RDW 13.6 % (11.5-15.5); WBC 12.6 k/uL (3.8-10.6)
--- NOTE | 2023-07-24 09:56 | P.PN ---
Subjective Progress Note Date: 07/23/23 Principal diagnosis: Reason for follow-up is left lower extremity cellulitis with bacteremia Patient is a 72-year-old male with a past medical history significant for diabetes mellitus hypertension sleep apnea COPD heart failure patient presenting to the ER for evaluation of shortness of breath and chills and weakness, patient did have mental status changes and noticed to have left lower extremity cellulitis and subsequently blood cultures came back positive with b eta-hemolytic strep group C. On today's evaluation that is 07/23/2023,the patient denies any fever or any chills, patient is breathing comfortably on 2 L nasal cannula oxygen, the patient denies chest pain shortness of breath and no significant cough, patient denies abdominal pain, no nausea vomiting or diarrhea still have significant swelling redness of left lower extremity however denies any worsening pain. No CBC was done today blood culture with the beta-hemolytic strep group C repeat blood culture pending Objective - Vital Signs Vital signs: Vital Signs Temp 97.5 F L 07/23/23 08:32 Pulse 81 07/23/23 08:32 Resp 22 07/23/23 08:32 BP 167/74 07/23/23 08:32 Pulse Ox 98 07/23/23 08:32 FiO2 Intake & Output 07/22/23 07/23/23 07/23/23 18:59 06:59 18:59 Intake Total 908 140 Output Total 250 950 200 Balance 658 -950 -60 Weight 134 kg Intake: IV 20 20 Invasive Line 1 10 Invasive Line 2 10 Invasive Line 3 10 Invasive Line 4 10 Intake, IV Titration 50 Amount ceFAZolin 2 gm In Sodium 50 Chloride 0.9% 50 ml @ 100 mls/hr IVPB Q8HR [facility] Rx# :[id number] Oral 838 120 Output: Urine 250 950 200 Uretheral (Rendon) 200 Other: Voiding Method Indwelling Catheter Indwelling Catheter Indwelling Catheter - Exam GENERAL DESCRIPTION: An elderly male lying in bed in no distress RESPIRATORY SYSTEM: Unlabored breathing , decreased breath sounds at bases HEART: S1 S2 regular rate and rhythm , ABDOMEN: Soft , no tenderness EXTREMITIES: Left leg with diffuse swelling and redness seem to have slightly increased and did have some clear drainage - Labs CBC & Chem 7: 07/24/23 07:13 07/22/23 07:46 Labs: Abnormal Lab Results - Last 24 Hours (Table) 07/22/23 07/22/23 07/22/23 Range/Units 07:46 11:13 16:15 PT (10.0-12.5) sec INR (<1.2) POC Glucose (mg/dL) 188 H 142 H (70-110) mg/dL Hemoglobin A1c 6.3 H (<=6.0) % 07/23/23 07/23/23 Range/Units 06:40 07:34 PT 16.9 H (10.0-12.5) sec INR 1.7 H (<1.2) POC Glucose (mg/dL) 134 H (70-110) mg/dL Hemoglobin A1c (<=6.0) % Microbiology - Last 24 Hours (Table) 07/20/23 21:56 Blood Culture Gram Stain - Preliminary Blood Blood Culture - Preliminary Beta Hemolytic Strep Group C 07/20/23 22:11 Blood Culture Gram Stain - Preliminary Blood Blood Culture - Preliminary Beta Hemolytic Strep Group C Assessment and Plan (1) Left leg cellulitis Current Visit: Yes Status: Acute Code(s): L03.116 - CELLULITIS OF LEFT LOWER LIMB SNOMED Code(s): 70739700127714779 (2) Sepsis Current Visit: Yes Status: Acute Code(s): A41.9 - SEPSIS, UNSPECIFIED ORGANISM SNOMED Code(s): 14930933 Plan: 1patient presented to hospital with mental status changes in this patient noticed to have a Fever elevated white count elevated lactic acid did have criteria for SIRS/sepsis source likely left lower extremity cellulitis with diffuse swelling redness more likely streptococcal disease. 2patient with renal insufficiency high risk of nephrotoxicity from vancomycin. 3streptococcal bacteremia source is left lower extremity cellulitis blood culture repeated document clearance of bacteremia 4patient did have extensive cellulitis with slight worsening redness has been noticed slightly concerning we will obtain a CT to make sure evidence of any abscess that may need to be drained we will continue the patient cefazolin and clindamycin for added coverage because of extensive cellulitis and monitor clinical course closely Dictation was produced using [employer] dictation software. please excuse any grammatical, word or spelling errors. Time with Patient: Less than 30
[2023-07-24 11:21] LABS: ALT 28 U/L (4-49); AST 42 U/L (17-59); African American GFR (CKD) >90 (>60 ml/min/1.73 sqM); Albumin 2.7 g/dL (3.5-5.0); Alkaline Phosphatase 81 U/L (38-126); Anion Gap 5 mmol/L; Blood Urea Nitrogen 30 mg/dL (9-20); Calcium 8.7 mg/dL (8.4-10.2); Carbon Dioxide 31 mmol/L (22-30); Chloride 101 mmol/L (98-107); Glucose 95 mg/dL (74-99); Non-African American GFR(CKD) >90 (>60 ml/min/1.73 sqM); Potassium 3.9 mmol/L (3.5-5.1); Sodium 137 mmol/L (137-145); Total Bilirubin 0.5 mg/dL (0.2-1.3); Total Protein 5.6 g/dL (6.3-8.2)
[2023-07-24 12:22] LABS: Glucose,Whole Blood 147 mg/dL (70-110)
--- NOTE | 2023-07-24 12:23 | P.PN ---
Subjective Progress Note Date: 07/24/23 Principal diagnosis: Reason for follow-up is left lower extremity cellulitis with bacteremia Patient is a 72-year-old male with a past medical history significant for diabetes mellitus hypertension sleep apnea COPD heart failure patient presenting to the ER for evaluation of shortness of breath and chills and weakness, patient did have mental status changes and noticed to have left lower extremity cellulitis and subsequently blood cultures came back positive with b eta-hemolytic strep group C. On today's evaluation that is 07/24/2023,the patient remains to be afebrile, patient is on 2 L nasal cannula supplemental oxygen and denies any shortness of breath no chest pain complaining of some cough but no sputum production.Patient denies having any nausea or vomiting, no abdominal pain and no diarrhea has been reported, denies any worsening pain to the left lower extremity. The patient white count is 12.6, creatinine 0.77 blood culture repeat so far negative Objective - Vital Signs Vital signs: Vital Signs Temp 98.1 F 07/24/23 08:06 Pulse 65 07/24/23 08:06 Resp 20 07/24/23 08:06 BP 130/70 07/24/23 08:06 Pulse Ox 97 07/24/23 08:06 FiO2 Intake & Output 07/23/23 07/24/23 07/24/23 18:59 06:59 18:59 Intake Total 390 10 Output Total 800 1850 Balance -410 -1840 Intake: IV 30 10 Invasive Line 3 20 10 Invasive Line 4 10 Oral 360 Output: Urine 800 1850 Uretheral (Rendon) 800 Stool 0 Urine/Stool Mix 0 Emesis 0 Oral Regurgitation 0 Other: Voiding Method Indwelling Catheter Indwelling Catheter Indwelling Catheter # Voids 0 # Bowel Movements 0 - Exam GENERAL DESCRIPTION: An elderly male lying in bed in no distress RESPIRATORY SYSTEM: Unlabored breathing , decreased breath sounds at bases HEART: S1 S2 regular rate and rhythm , ABDOMEN: Soft , no tenderness EXTREMITIES: Left leg with diffuse swelling and redness some clear drainage - Labs CBC & Chem 7: 07/24/23 07:13 07/24/23 07:13 Labs: Abnormal Lab Results - Last 24 Hours (Table) 07/23/23 07/24/23 07/24/23 Range/Units 20:04 07:13 07:13 WBC 12.6 H (3.8-10.6) k/uL RBC 3.77 L (4.30-5.90) m/uL Hgb 11.9 L (13.0-17.5) gm/dL Hct 37.3 L (39.0-53.0) % Neutrophils # 9.9 H (1.3-7.7) k/uL Lymphocytes # 0.8 L (1.0-4.8) k/uL Monocytes # 1.3 H (0-1.0) k/uL PT 20.9 H (10.0-12.5) sec INR 2.1 H (<1.2) POC Glucose (mg/dL) 171 H (70-110) mg/dL Microbiology - Last 24 Hours (Table) 07/22/23 07:46 Blood Culture - Preliminary Blood 07/22/23 07:46 Blood Culture - Preliminary Blood 07/20/23 21:56 Blood Culture Gram Stain - Final Blood Blood Culture - Final Beta Hemolytic Strep Group C 07/20/23 22:11 Blood Culture Gram Stain - Final Blood Blood Culture - Final Beta Hemolytic Strep Group C Assessment and Plan (1) Left leg cellulitis Current Visit: Yes Status: Acute Code(s): L03.116 - CELLULITIS OF LEFT LOWER LIMB SNOMED Code(s): 52396255289810385 (2) Sepsis Current Visit: Yes Status: Acute Code(s): A41.9 - SEPSIS, UNSPECIFIED ORGANISM SNOMED Code(s): 40048854 Plan: 1patient presented to hospital with mental status changes in this patient noticed to have a Fever elevated white count elevated lactic acid did have criteria for SIRS/sepsis source likely left lower extremity cellulitis with diffuse swelling redness more likely streptococcal disease. 2patient with renal insufficiency high risk of nephrotoxicity from vancomycin. 3streptococcal bacteremia source is left lower extremity cellulitis blood culture repeated document clearance of bacteremia 4patient did have extensive cellulitis, patient did have CT of left lower extremity on 07/23/2023 that was negative for any abscess 5-patient to continue with cefazolin and clindamycin because of his extensive infection and monitor clinical course closely Dictation was produced using [employer] dictation software. please excuse any grammatical, word or spelling errors. Time with Patient: Less than 30
[2023-07-24] MEDS: BENZOCAINE/MENTHOL LOZENG 1 EACH LOZENGE MUCOUS MEM PRN (12:25)
--- NOTE | 2023-07-24 12:58 | P.PN ---
Subjective Patient is seen for follow-up for acute kidney injury. Renal function has improved. Maintained on Lasix 40 mg oral twice a day Objective - Vital Signs Vital signs: Vital Signs Temp 98.1 F 07/24/23 08:06 Pulse 62 07/24/23 11:13 Resp 24 07/24/23 11:13 BP 105/67 07/24/23 11:13 Pulse Ox 96 07/24/23 11:13 FiO2 Intake & Output 07/23/23 07/24/23 07/24/23 18:59 06:59 18:59 Intake Total 390 10 Output Total 800 1850 Balance -410 -1840 Intake: IV 30 10 Invasive Line 3 20 10 Invasive Line 4 10 Oral 360 Output: Urine 800 1850 Uretheral (Rendon) 800 Stool 0 Urine/Stool Mix 0 Emesis 0 Oral Regurgitation 0 Other: Voiding Method Indwelling Catheter Indwelling Catheter Indwelling Catheter # Voids 0 # Bowel Movements 0 - Exam Patient is awake, comfortable, no acute distress Examination of the heart S1 and S2 Examination of the lungs bilateral breath sounds are heard Abdomen is soft nontender Examination of lower extremities shows no significant edema. - Labs CBC & Chem 7: 07/24/23 07:13 07/24/23 07:13 Labs: Abnormal Lab Results - Last 24 Hours (Table) 07/23/23 07/24/23 07/24/23 Range/Units 20:04 07:13 07:13 WBC 12.6 H (3.8-10.6) k/uL RBC 3.77 L (4.30-5.90) m/uL Hgb 11.9 L (13.0-17.5) gm/dL Hct 37.3 L (39.0-53.0) % Neutrophils # 9.9 H (1.3-7.7) k/uL Lymphocytes # 0.8 L (1.0-4.8) k/uL Monocytes # 1.3 H (0-1.0) k/uL PT 20.9 H (10.0-12.5) sec INR 2.1 H (<1.2) Carbon Dioxide (22-30) mmol/L BUN (9-20) mg/dL POC Glucose (mg/dL) 171 H (70-110) mg/dL Total Protein (6.3-8.2) g/dL Albumin (3.5-5.0) g/dL 07/24/23 07/24/23 Range/Units 07:13 12:19 WBC (3.8-10.6) k/uL RBC (4.30-5.90) m/uL Hgb (13.0-17.5) gm/dL Hct (39.0-53.0) % Neutrophils # (1.3-7.7) k/uL Lymphocytes # (1.0-4.8) k/uL Monocytes # (0-1.0) k/uL PT (10.0-12.5) sec INR (<1.2) Carbon Dioxide 31 H (22-30) mmol/L BUN 30 H (9-20) mg/dL POC Glucose (mg/dL) 147 H (70-110) mg/dL Total Protein 5.6 L (6.3-8.2) g/dL Albumin 2.7 L (3.5-5.0) g/dL Microbiology - Last 24 Hours (Table) 07/22/23 07:46 Blood Culture - Preliminary Blood 07/22/23 07:46 Blood Culture - Preliminary Blood 07/20/23 21:56 Blood Culture Gram Stain - Final Blood Blood Culture - Final Beta Hemolytic Strep Group C 07/20/23 22:11 Blood Culture Gram Stain - Final Blood Blood Culture - Final Beta Hemolytic Strep Group C Assessment and Plan Assessment: 1. Acute kidney injury, prerenal, secondary to severe sepsis improved with IV hydration. Creatinine peaked at 1.53 this admission and it is down to 0.7 mg/dL. Creatinine in September 2021 was in the range of 0.8-0.9. Renal US no hydronephrosis. 2. Severe sepsis with gram-positive bacteremia and UTI on antibiotics. 3. Hyperkalemia secondary to acute kidney injury, lisinopril. Improved. 4. Chronic systolic CHF ejection fraction of 40 to 45% on echocardiogram done September 2021. 5. Diabetes mellitus. Plan: May continue current dose of oral Lasix. We will sign off
[2023-07-24] MEDS ORDERED: IPRATROPIUM-ALBUTEROL 3 ML NEB INHALATION PRN (15:48)
[2023-07-24] MEDS: IPRATROPIUM-ALBUTEROL 3 ML NEB INHALATION SCH (16:16)
--- NOTE | 2023-07-24 16:17 | P.PN ---
Subjective Progress Note Date: 07/24/23 H&P Date: 07/21/23 Chief Complaint: Confusion, sepsis, hyper This is a 72-year-old gentleman with past medical history significant for systolic CHF, COPD, morbid obesity, diabetes mellitus, hypertension, obstructive sleep apnea, permanent pacemaker, atrial fibrillation on Coumadin, aortic valve replacement(bovine), former nicotine dependence, depression, recurrent UTIs and multiple other medical issues brought into the ER via EMS with complaints of fevers, fatigue ,increased generalized weakness accompanied by confusion as reported per family. Patient reports having difficulty walking, diaphoresis. denies falls or trauma. Denies chest pain, palpitations or increased shortness of breath. Maintaining O2 sats In the 90s on 2 L nasal cannula. Last x-ray reporting mild cardiomegaly and pulmonary vascular congestion, no jojo pulmonary edema. Brain CT reported no acute findings. Afebrile, hypotensive on admission, maintaining O2 sats in the low 90s on room air and progressed to 2 L nasal cannula to maintain. WBC 25.7, hemoglobin 14.5 platelets 235, INR 3.3. Sodium 138, potassium 5.9, received hyperkalemic cocktail, decreased to 4.5, bicarb 28, BUN 42, creatinine 1.26, blood sugars controlled, lactic acid 2.5 decreased to 1.9. Troponin negative x 1. proBNP 5340. UA reported rare bacteria 6 WBCs, small leukocytes, negative nitrates, moderate blood. Influenza type A/type B/RSV/COVID not detected. Preliminary blood cultures reporting gram-positive cocci. Received a liter fluid bolus as well as a dose of Lasix. 07/24/2023 midline catheter pending. Continues on oral Lasix, diuresing well with 24-hour I&O reflecting a negative fluid balance. renal function improving, BUN 30 ,creatinine 0.77. Maintain on IV antibiotics of cefazolin and clindamycin as per infectious disease. Afebrile, WBC decreased to 12.6. Denies worsening of left lower extremity tenderness.preliminary repeat blood cultures reporting no growth after 24 hours. Coumadin as per pharmacy dosing, current INR 2.1. Blood sugars controlled. Denies chest pain, palpitations or increased shortness of breath. Maintaining O2 sats in the 90s on 2 L nasal cannula. Reports occasional nonproductive cough-worse at night. Objective - Vital Signs Vital signs: Vital Signs Temp 98.1 F 07/24/23 08:06 Pulse 62 07/24/23 13:43 Resp 24 07/24/23 11:13 BP 105/67 07/24/23 11:13 Pulse Ox 96 07/24/23 11:13 FiO2 Intake & Output 07/23/23 07/24/23 07/24/23 18:59 06:59 18:59 Intake Total 390 10 Output Total 800 1850 Balance -410 -1840 Intake: IV 30 10 Invasive Line 3 20 10 Invasive Line 4 10 Oral 360 Output: Urine 800 1850 Uretheral (Rendon) 800 Stool 0 Urine/Stool Mix 0 Emesis 0 Oral Regurgitation 0 Other: Voiding Method Indwelling Catheter Indwelling Catheter Indwelling Catheter # Voids 0 # Bowel Movements 0 - Exam GENERAL EXAM: Alert and oriented x 2, pleasant, sitting up in bed, no acute distress HEAD: Normocephalic/atraumatic. EYES: Normal reaction of pupils, equal size. Conjunctiva pink, sclera white. NECK: Supple, no JVD, no thyroid enlargement, no adenopathy. LUNGS: Unlabored, equal air entry , expiratory wheezing with bilateral bases diminished CVS: Irregular rate and rhythm, normal S1 and S2, systolic murmur ABDOMEN: Soft, nondistended, nontender. +BS. EXTREMITIES: left lower extremity warm, redness, diffuse edema, less induration SKIN: Warm and dry, no rashes NERVOUS SYSTEM: Cranial nerves II through XII grossly intact. - Labs CBC & Chem 7: 07/24/23 07:13 07/24/23 07:13 Labs: Abnormal Lab Results - Last 24 Hours (Table) 07/23/23 07/24/23 07/24/23 Range/Units 20:04 07:13 07:13 WBC 12.6 H (3.8-10.6) k/uL RBC 3.77 L (4.30-5.90) m/uL Hgb 11.9 L (13.0-17.5) gm/dL Hct 37.3 L (39.0-53.0) % Neutrophils # 9.9 H (1.3-7.7) k/uL Lymphocytes # 0.8 L (1.0-4.8) k/uL Monocytes # 1.3 H (0-1.0) k/uL PT 20.9 H (10.0-12.5) sec INR 2.1 H (<1.2) Carbon Dioxide (22-30) mmol/L BUN (9-20) mg/dL POC Glucose (mg/dL) 171 H (70-110) mg/dL Total Protein (6.3-8.2) g/dL Albumin (3.5-5.0) g/dL 07/24/23 07/24/23 Range/Units 07:13 12:19 WBC (3.8-10.6) k/uL RBC (4.30-5.90) m/uL Hgb (13.0-17.5) gm/dL Hct (39.0-53.0) % Neutrophils # (1.3-7.7) k/uL Lymphocytes # (1.0-4.8) k/uL Monocytes # (0-1.0) k/uL PT (10.0-12.5) sec INR (<1.2) Carbon Dioxide 31 H (22-30) mmol/L BUN 30 H (9-20) mg/dL POC Glucose (mg/dL) 147 H (70-110) mg/dL Total Protein 5.6 L (6.3-8.2) g/dL Albumin 2.7 L (3.5-5.0) g/dL Microbiology - Last 24 Hours (Table) 07/22/23 07:46 Blood Culture - Preliminary Blood 07/22/23 07:46 Blood Culture - Preliminary Blood 07/20/23 21:56 Blood Culture Gram Stain - Final Blood Blood Culture - Final Beta Hemolytic Strep Group C 07/20/23 22:11 Blood Culture Gram Stain - Final Blood Blood Culture - Final Beta Hemolytic Strep Group C Assessment and Plan Assessment: Sepsis with bacteremia, related to extensive left lower extremity cellulitis. CT of left lower extremity 07/23/2023 reported negative for abscess, cellulitis changes with associated reactive lymphadenopathy. Bacteremia, beta-hemolytic strep group C. Possible UTI, urine culture reported no growth after 18 hours. Acute hypoxic respiratory failure secondary to the above Acute metabolic encephalopathy secondary to all the above Acute renal failure, prerenal secondary to sepsis, improved with IV fluids. No hydronephrosis reported per renal ultrasound. Hyperkalemia secondary to the above, improved COPD Diabetes mellitus type 2 Chronic systolic CHF History of aortic valve replacement, bovine Chronic persistent atrial fibrillation on Coumadin Permanent pacemaker implantation, history of Hypertension Hyperlipidemia Prior nicotine dependence Morbid obesity, BMI 44 Plan: Continue on current medication regimen ,monitoring and symptomatic treatment. Nebulized bronchodilators scheduled and as needed ordered. midline catheter pending. Antibiotics-Cefazolin and clindamycin as per infectious disease. Coumadin dosing as per pharmacy. Continue tight control of blood sugars with close monitoring of Accu-Cheks. PT/OT on consult, recommendations pending. The impression and plan of care has been dictated as directed. : I performed a history and examination of this patient, discussed the same with the dictator. I agree with the dictator's note ,documented as a scribe. Any additional findings or plans will be noted.
[2023-07-24] MEDS: DOCUSATE 100 MG CAP PO SCH (16:35)
[2023-07-24 16:45] LABS: Glucose,Whole Blood 168 mg/dL (70-110)
[2023-07-24] MEDS: WARFARIN 5 MG TAB PO ONE (17:16)
[2023-07-24] MEDS: polyethylene glycoL 3350 17 GM POWD.PACK PO PRN (18:32)
[2023-07-24 20:38] LABS: Glucose,Whole Blood 142 mg/dL (70-110)
[2023-07-24] MEDS: SYMBICORT 160-4.5 MCG INHALER INHALATION SCH (21:22)
[2023-07-24] MEDS: AMITRIPTYLINE HCL 25 MG TAB PO SCH (21:33)
[2023-07-24] MEDS: TAMSULOSIN 0.4 MG CAP.ER.24H PO SCH (21:33)
[2023-07-25 06:18] LABS: Glucose,Whole Blood 94 mg/dL (70-110)
[2023-07-25] MEDS: MULTIVITAMINS, THERA 1 EACH TAB PO SCH (08:47)
[2023-07-25 11:26] LABS: Glucose,Whole Blood 137 mg/dL (70-110)
[2023-07-25 12:11] LABS: INR 2.7 (<1.2); Prothrombin Time 26.2 sec (10.0-12.5)
[2023-07-25 12:13] LABS: African American GFR (CKD) >90 (>60 ml/min/1.73 sqM); Anion Gap 4 mmol/L; Blood Urea Nitrogen 33 mg/dL (9-20); Calcium 8.3 mg/dL (8.4-10.2); Carbon Dioxide 32 mmol/L (22-30); Chloride 100 mmol/L (98-107); Glucose 120 mg/dL (74-99); Non-African American GFR(CKD) 90 (>60 ml/min/1.73 sqM); Potassium 3.8 mmol/L (3.5-5.1); Sodium 136 mmol/L (137-145)
[2023-07-25] MEDS: HYDROcodone/APAP 5-325MG 1 EACH TAB PO PRN (12:14)
--- NOTE | 2023-07-25 13:22 | P.PN ---
Subjective Progress Note Date: 07/25/23 Principal diagnosis: Reason for follow-up is left lower extremity cellulitis with bacteremia Patient is a 72-year-old male with a past medical history significant for diabetes mellitus hypertension sleep apnea COPD heart failure patient presenting to the ER for evaluation of shortness of breath and chills and weakness, patient did have mental status changes and noticed to have left lower extremity cellulitis and subsequently blood cultures came back positive with b eta-hemolytic strep group C. On today's evaluation that is07/25/2023, the patient continues to be afebrile, the patient is on 2 L nasal cannula oxygen and breathing comfortably, The patient denies having any chest pain or cough, the patient denies having any abdominal pain no vomiting or any diarrhea has been reported by the nursing staff, still have significant redness to left leg but denies any worsening pain. Patient did have creatinine 0.78 no CBC was done today repeat blood culture negative Objective - Vital Signs Vital signs: Vital Signs Temp 97.5 F L 07/25/23 11:23 Pulse 64 07/25/23 11:37 Resp 20 07/25/23 11:23 BP 121/53 07/25/23 11:23 Pulse Ox 98 07/25/23 11:23 FiO2 Intake & Output 07/24/23 07/25/23 07/25/23 18:59 06:59 18:59 Intake Total 118 358 Output Total 1200 580 50 Balance -1200 -462 308 Intake: Oral 118 358 Output: Urine 1200 580 50 Other: Voiding Method Indwelling Catheter Indwelling Catheter # Bowel Movements 1 0 - Exam GENERAL DESCRIPTION: An elderly male lying in bed in no distress RESPIRATORY SYSTEM: Unlabored breathing , decreased breath sounds at bases HEART: S1 S2 regular rate and rhythm , ABDOMEN: Soft , no tenderness EXTREMITIES: Left leg with diffuse swelling and redness some clear drainage - Labs CBC & Chem 7: 07/24/23 07:13 07/25/23 11:17 Labs: Abnormal Lab Results - Last 24 Hours (Table) 07/24/23 07/24/23 07/25/23 Range/Units 16:43 20:37 11:17 PT 26.2 H (10.0-12.5) sec INR 2.7 H (<1.2) Sodium (137-145) mmol/L Carbon Dioxide (22-30) mmol/L BUN (9-20) mg/dL Glucose (74-99) mg/dL POC Glucose (mg/dL) 168 H 142 H (70-110) mg/dL Calcium (8.4-10.2) mg/dL 07/25/23 07/25/23 Range/Units 11:17 11:24 PT (10.0-12.5) sec INR (<1.2) Sodium 136 L (137-145) mmol/L Carbon Dioxide 32 H (22-30) mmol/L BUN 33 H (9-20) mg/dL Glucose 120 H (74-99) mg/dL POC Glucose (mg/dL) 137 H (70-110) mg/dL Calcium 8.3 L (8.4-10.2) mg/dL Microbiology - Last 24 Hours (Table) 07/22/23 07:46 Blood Culture - Preliminary Blood 07/22/23 07:46 Blood Culture - Preliminary Blood Assessment and Plan (1) Left leg cellulitis Current Visit: Yes Status: Acute Code(s): L03.116 - CELLULITIS OF LEFT LOWER LIMB SNOMED Code(s): 51980913904835812 (2) Sepsis Current Visit: Yes Status: Acute Code(s): A41.9 - SEPSIS, UNSPECIFIED ORGANI SM SNOMED Code(s): 49752874 Plan: 1patient presented to hospital with mental status changes in this patient noticed to have a Fever elevated white count elevated lactic acid did have criteria for SIRS/sepsis source likely left lower extremity cellulitis with diffuse swelling redness more likely streptococcal disease. 2patient with renal insufficiency high risk of nephrotoxicity from vancomycin. 3streptococcal bacteremia source is left lower extremity cellulitis blood culture repeated document clearance of bacteremia 4patient did have extensive cellulitis, patient did have CT of left lower extremity on 07/23/2023 that was negative for any abscess 5-patient to continue with cefazolin and clindamycin will apply ABD to the blistering followed by Wil wrap from just above the toe to below the knee to get some of the swelling down discussed with the nursing staff Dictation was produced using [employer] dictation software. please excuse any grammatical, word or spelling errors. Time with Patient: Less than 30
--- NOTE | 2023-07-25 14:49 | P.PN ---
Subjective Progress Note Date: 07/25/23 H&P Date: 07/21/23 Chief Complaint: Confusion, sepsis, hyper This is a 72-year-old gentleman with past medical history significant for systolic CHF, COPD, morbid obesity, diabetes mellitus, hypertension, obstructive sleep apnea, permanent pacemaker, atrial fibrillation on Coumadin, aortic valve replacement(bovine), former nicotine dependence, depression, recurrent UTIs and multiple other medical issues brought into the ER via EMS with complaints of fevers, fatigue ,increased generalized weakness accompanied by confusion as reported per family. Patient reports having difficulty walking, diaphoresis. denies falls or trauma. Denies chest pain, palpitations or increased shortness of breath. Maintaining O2 sats In the 90s on 2 L nasal cannula. Last x-ray reporting mild cardiomegaly and pulmonary vascular congestion, no jojo pulmonary edema. Brain CT reported no acute findings. Afebrile, hypotensive on admission, maintaining O2 sats in the low 90s on room air and progressed to 2 L nasal cannula to maintain. WBC 25.7, hemoglobin 14.5 platelets 235, INR 3.3. Sodium 138, potassium 5.9, received hyperkalemic cocktail, decreased to 4.5, bicarb 28, BUN 42, creatinine 1.26, blood sugars controlled, lactic acid 2.5 decreased to 1.9. Troponin negative x 1. proBNP 5340. UA reported rare bacteria 6 WBCs, small leukocytes, negative nitrates, moderate blood. Influenza type A/type B/RSV/COVID not detected. Preliminary blood cultures reporting gram-positive cocci. Received a liter fluid bolus as well as a dose of Lasix. 07/24/2023 midline catheter pending. Continues on oral Lasix, diuresing well with 24-hour I&O reflecting a negative fluid balance. renal function improving, BUN 30 ,creatinine 0.77. Maintain on IV antibiotics of cefazolin and clindamycin as per infectious disease. Afebrile, WBC decreased to 12.6. Denies worsening of left lower extremity tenderness.preliminary repeat blood cultures reporting no growth after 24 hours. Coumadin as per pharmacy dosing, current INR 2.1. Blood sugars controlled. Denies chest pain, palpitations or increased shortness of breath. Maintaining O2 sats in the 90s on 2 L nasal cannula. Reports occasional nonproductive cough-worse at night. 07/25/2023 maintained on IV antibiotics as per infectious disease, afebrile. Repeat blood cultures reporting no growth after 48 hours .creatinine 0.78. left lower extremity redness , tenderness persist. denies chest pain, palpitations or shortness of breath. Maintaining O2 sats in the 90s on 2 L nasal cannula. Objective - Vital Signs Vital signs: Vital Signs Temp 97.5 F L 07/25/23 11:23 Pulse 64 07/25/23 11:37 Resp 20 07/25/23 11:23 BP 121/53 07/25/23 11:23 Pulse Ox 98 07/25/23 11:23 FiO2 Intake & Output 07/24/23 07/25/23 07/25/23 18:59 06:59 18:59 Intake Total 118 358 Output Total 1200 580 50 Balance -1200 -462 308 Intake: Oral 118 358 Output: Urine 1200 580 50 Other: Voiding Method Indwelling Catheter Indwelling Catheter # Bowel Movements 1 0 - Exam GENERAL EXAM: Alert and oriented x 3, pleasant, sitting up in chair no acute distress HEAD: Normocephalic/atraumatic. EYES: Normal reaction of pupils, equal size. Conjunctiva pink, sclera white. NECK: Supple, no JVD, no thyroid enlargement, no adenopathy. LUNGS: Unlabored, equal air entry , expiratory wheezing with bilateral bases diminished CVS: Irregular rate and rhythm, normal S1 and S2, systolic murmur ABDOMEN: Soft, nondistended, nontender. +BS. EXTREMITIES: left lower extremity warm, weeping, redness, diffuse edema SKIN: Warm and dry, no rashes NERVOUS SYSTEM: Cranial nerves II through XII grossly intact. - Labs CBC & Chem 7: 07/24/23 07:13 07/25/23 11:17 Labs: Abnormal Lab Results - Last 24 Hours (Table) 07/24/23 07/24/23 07/25/23 Range/Units 16:43 20:37 11:17 PT 26.2 H (10.0-12.5) sec INR 2.7 H (<1.2) Sodium (137-145) mmol/L Carbon Dioxide (22-30) mmol/L BUN (9-20) mg/dL Glucose (74-99) mg/dL POC Glucose (mg/dL) 168 H 142 H (70-110) mg/dL Calcium (8.4-10.2) mg/dL 07/25/23 07/25/23 Range/Units 11:17 11:24 PT (10.0-12.5) sec INR (<1.2) Sodium 136 L (137-145) mmol/L Carbon Dioxide 32 H (22-30) mmol/L BUN 33 H (9-20) mg/dL Glucose 120 H (74-99) mg/dL POC Glucose (mg/dL) 137 H (70-110) mg/dL Calcium 8.3 L (8.4-10.2) mg/dL Microbiology - Last 24 Hours (Table) 07/22/23 07:46 Blood Culture - Preliminary Blood 07/22/23 07:46 Blood Culture - Preliminary Blood Assessment and Plan Assessment: Sepsis with bacteremia, related to extensive left lower extremity cellulitis. CT of left lower extremity 07/23/2023 reported negative for abscess, cellulitis changes with associated reactive lymphadenopathy. Bacteremia, beta-hemolytic strep group C. Possible UTI, urine culture reported no growth after 18 hours. Acute hypoxic respiratory failure secondary to the above Acute metabolic encephalopathy secondary to all the above Acute renal failure, prerenal secondary to sepsis, improved with IV fluids. No hydronephrosis reported per renal ultrasound. Hyperkalemia secondary to the above, improved COPD Diabetes mellitus type 2 Chronic systolic CHF History of aortic valve replacement, bovine Chronic persistent atrial fibrillation on Coumadin Permanent pacemaker implantation, history of Hypertension Hyperlipidemia Prior nicotine dependence Morbid obesity, BMI 44 Plan: Continue on current medication regimen ,monitoring and symptomatic treatment. Cefazolin and clindamycin /wound care as per ID .possible zinc paste with Wil wrap if okay by ID .maintain aggressive pulmonary toileting including nebulized bronchodilators. Coumadin dosing as per pharmacy.Tight control of blood sugars with close monitoring of Accu-Cheks. OT attempted to evaluate patient-patient refused. The impression and plan of care has been dictated as directed. : I performed a history and examination of this patient, discussed the same with the dictator. I agree with the dictator's note ,documented as a scribe. Any additional findings or plans will be noted.
[2023-07-25 16:39] LABS: Glucose,Whole Blood 158 mg/dL (70-110)
[2023-07-25] MEDS: WARFARIN 2 MG TAB PO ONE (17:35)
--- NOTE | 2023-07-25 20:06 | CT ---
EXAMINATION TYPE: CT brain wo con DATE OF EXAM: 07/25/2023 COMPARISON: 07/20/2023 HISTORY: 72-year-old male with pain after Fall, hit head TECHNIQUE: Examination was done in axial plane without intravenous contrast. Coronal and sagittal r econstructions performed. CT DLP: 1118.4 mGycm Automated exposure control for dose reduction was used. FINDINGS: There is no evidence of acute intracranial hemorrhage, acute ischemic changes, mass, mass-effect, or extra-axial fluid collection. There is no effacement of cerebral sulci or basal subarachnoid cister ns. Similar mild ventriculomegaly likely due to central cerebral atrophy. Severe patchy and confluent white matter hypodensities in both cerebral hemispheres also redemonstrated. There is no midline betito ft. Cortez-white matter distinction is preserved. Previous resection changes right mastoid process. Orbits and globes are intact. Leftward nasal septal location. Small amount of fluid within the inferior left mastoid air cells redemonstrated. IMPRESSION: Similar severe patchy and confluent white matter hypodensities likely relating to chronic small vesse l ischemic disease. Mild ventricular prominence likely due to central cerebral atrophy is also simila r. No acute intracranial abnormality seen.
[2023-07-25 20:19] LABS: Glucose,Whole Blood 132 mg/dL (70-110)
[2023-07-26 06:11] LABS: Glucose,Whole Blood 100 mg/dL (70-110)
[2023-07-26 11:26] LABS: Basophils % (A) 0 %; Eosinophils # (A) 0.2 k/uL (0-0.7); Eosinophils % (A) 2 %; HCT 37.7 % (39.0-53.0); HGB 12.2 gm/dL (13.0-17.5); Lymphocytes % (A) 9 %; MCH 31.5 pg (25.0-35.0); MCHC 32.5 g/dL (31.0-37.0); Mean Platelet Volume 7.5; Monocytes # (A) 1.2 k/uL (0-1.0); Monocytes % (A) 10 %; Neutrophils # (A) 8.8 k/uL (1.3-7.7); Neutrophils % (A) 77 %; Platelet Count 307 k/uL (150-450); RBC 3.89 m/uL (4.30-5.90); WBC 11.4 k/uL (3.8-10.6)
[2023-07-26 11:37] LABS: Prothrombin Time 29.8 sec (10.0-12.5)
--- NOTE | 2023-07-26 11:41 | P.PN ---
Subjective Progress Note Date: 07/26/23 Principal diagnosis: Reason for follow-up is left lower extremity cellulitis with bacteremia Patient is a 72-year-old male with a past medical history significant for diabetes mellitus hypertension sleep apnea COPD heart failure patient presenting to the ER for evaluation of shortness of breath and chills and weakness, patient did have mental status changes and noticed to have left lower extremity cellulitis and subsequently blood cultures came back positive with b eta-hemolytic strep group C. On today's evaluation that is 07/26/2023, Patient is afebrile patient is currently on 2 L nasal cannula oxygen and denies having any shortness of breath, the patient denies any chest pain or cough, the patient denies any nausea vomiting did not have any abdominal pain and no diarrhea, pain to the left lower extremity has slightly decreased in intensity. Patient white counts are 11.4, creatinine 0.78 blood culture repeat negative Objective - Vital Signs Vital signs: Vital Signs Temp 97.5 F L 07/26/23 11:40 Pulse 60 07/26/23 11:40 Resp 20 07/26/23 11:40 BP 128/78 07/26/23 11:40 Pulse Ox 93 L 07/26/23 11:40 FiO2 Intake & Output 07/25/23 07/26/23 07/26/23 18:59 06:59 18:59 Intake Total 776 120 Output Total 225 500 Balance 551 -500 120 Intake: Intake, IV Titration 300 Amount Clindamycin 900 mg In 100 Dextrose 5% in Water 50 ml @ 50 mls/hr IVPB Q8H [facility] Rx#:[id number] ceFAZolin 3 gm In Sodium 200 Chloride 0.9% 100 ml @ 200 mls/hr IVPB Q8H [facility] Rx#:[id number] Oral 476 120 Output: Urine 225 500 Other: Voiding Method Bedside Commode External Catheter Urinal - Exam GENERAL DESCRIPTION: An elderly male lying in bed in no distress RESPIRATORY SYSTEM: Unlabored breathing , decreased breath sounds at bases HEART: S1 S2 regular rate and rhythm , ABDOMEN: Soft , no tenderness EXTREMITIES: Left leg currently covered with Wil wrap no drainage on the dressing - Labs CBC & Chem 7: 07/26/23 10:31 07/25/23 11:17 Labs: Abnormal Lab Results - Last 24 Hours (Table) 07/25/23 07/25/23 07/25/23 Range/Units 11:17 11:17 16:37 WBC (3.8-10.6) k/uL RBC (4.30-5.90) m/uL Hgb (13.0-17.5) gm/dL Hct (39.0-53.0) % Neutrophils # (1.3-7.7) k/uL Monocytes # (0-1.0) k/uL PT 26.2 H (10.0-12.5) sec INR 2.7 H (<1.2) Sodium 136 L (137-145) mmol/L Carbon Dioxide 32 H (22-30) mmol/L BUN 33 H (9-20) mg/dL Glucose 120 H (74-99) mg/dL POC Glucose (mg/dL) 158 H (70-110) mg/dL Calcium 8.3 L (8.4-10.2) mg/dL 07/25/23 07/26/23 07/26/23 Range/Units 20:16 10:31 10:31 WBC 11.4 H (3.8-10.6) k/uL RBC 3.89 L (4.30-5.90) m/uL Hgb 12.2 L (13.0-17.5) gm/dL Hct 37.7 L (39.0-53.0) % Neutrophils # 8.8 H (1.3-7.7) k/uL Monocytes # 1.2 H (0-1.0) k/uL PT 29.8 H (10.0-12.5) sec INR 3.0 H (<1.2) Sodium (137-145) mmol/L Carbon Dioxide (22-30) mmol/L BUN (9-20) mg/dL Glucose (74-99) mg/dL POC Glucose (mg/dL) 132 H (70-110) mg/dL Calcium (8.4-10.2) mg/dL Microbiology - Last 24 Hours (Table) 07/22/23 07:46 Blood Culture - Preliminary Blood 07/22/23 07:46 Blood Culture - Preliminary Blood Assessment and Plan (1) Left leg cellulitis Current Visit: Yes Status: Acute Code(s): L03.116 - CELLULITIS OF LEFT LOWER LIMB SNOMED Code(s): 06553183948377467 (2) Sepsis Current Visit: Yes Status: Acute Code(s): A41.9 - SEPSIS, UNSPECIFIED ORGANISM SNOMED Code(s): 71673146 Plan: 1patient presented to hospital with mental status changes in this patient noticed to have a Fever elevated white count elevated lactic acid did have criteria for SIRS/sepsis source likely left lower extremity cellulitis with diffuse swelling redness more likely streptococcal disease. 2patient with renal insufficiency high risk of nephrotoxicity from vancomycin. 3streptococcal bacteremia source is left lower extremity cellulitis blood culture repeated document clearance of bacteremia 4patient did have extensive cellulitis, patient did have CT of left lower extremity on 07/23/2023 that was negative for any abscess 5-patient to continue with cefazolin and clindamycin and local care to the left leg with ABD to the blistering followed by Wil wrap from just above the toe to below the knee, will reevaluate the leg tomorrow at the time of dressing changes Dictation was produced using [employer] dictation software. please excuse any grammatical, word or spelling errors. Time with Patient: Less than 30
[2023-07-26 11:42] LABS: African American GFR (CKD) >90 (>60 ml/min/1.73 sqM); Anion Gap 7 mmol/L; Blood Urea Nitrogen 30 mg/dL (9-20); Calcium 8.6 mg/dL (8.4-10.2); Carbon Dioxide 34 mmol/L (22-30); Chloride 97 mmol/L (98-107); Glucose 164 mg/dL (74-99); Non-African American GFR(CKD) 87 (>60 ml/min/1.73 sqM); Potassium 3.5 mmol/L (3.5-5.1); Sodium 138 mmol/L (137-145)
--- NOTE | 2023-07-26 11:54 | P.DS ---
Providers Date of admission: 07/21/23 00:22 Expected date of discharge: 07/26/23 Attending physician: Cory Goodman MD Consults: 07/21/23 00:21 Consult Physician Routine Consulting Provider: Rob Zapata Consult Reason/Comments: hyperkalemia, pat Do you want consulting provider notified?: Yes 07/21/23 08:21 Consult Physician Routine Consulting Provider: Juice Chery Consult Reason/Comments: sepsis Do you want consulting provider notified?: Yes Primary care physician: Cory Goodman MD Hospital Course: Final Diagnosis: Sepsis with bacteremia, related to extensive left lower extremity cellulitis. CT of left lower extremity 07/23/2023 reported negative for abscess, cellulitis changes with associated reactive lymphadenopathy. Bacteremia, beta-hemolytic strep group C. Possible UTI, urine culture reported no growth after 18 hours. Acute hypoxic respiratory failure secondary to the above Acute metabolic encephalopathy secondary to all the above Acute renal failure, prerenal secondary to sepsis, improved with IV fluids. No hydronephrosis reported per renal ultrasound. Hyperkalemia secondary to the above, improved COPD Diabetes mellitus type 2 Chronic systolic CHF History of aortic valve replacement, bovine Chronic persistent atrial fibrillation on Coumadin Permanent pacemaker implantation, history of Hypertension Hyperlipidemia Prior nicotine dependence Morbid obesity, BMI 44 Hospital course:This is a 72-year-old gentleman with past medical history significant for systolic CHF, COPD, morbid obesity, diabetes mellitus, hypertension, obstructive sleep apnea, permanent pacemaker, atrial fibrillation on Coumadin, aortic valve replacement(bovine), former nicotine dependence, depression, recurrent UTIs and multiple other medical issues brought into the ER via EMS with complaints of fevers, fatigue ,increased generalized weakness accompanied by confusion as reported per family. Patient reports having difficulty walking, diaphoresis. denies falls or trauma. Denies chest pain, palpitations or increased shortness of breath. Maintaining O2 sats In the 90s on 2 L nasal cannula. Last x-ray reporting mild cardiomegaly and pulmonary vascular congestion, no jojo pulmonary edema. Brain CT reported no acute findings. Afebrile, hypotensive on admission, maintaining O2 sats in the low 90s on room air and progressed to 2 L nasal cannula to maintain. WBC 25.7, hemoglobin 14.5 platelets 235, INR 3.3. Sodium 138, potassium 5.9, received hyperkalemic cocktail, decreased to 4.5, bicarb 28, BUN 42, creatinine 1.26, blood sugars controlled, lactic acid 2.5 decreased to 1.9. Troponin negative x 1. proBNP 5340. UA reported rare bacteria 6 WBCs, small leukocytes, negative nitrates, moderate blood. Influenza type A/type B/RSV/COVID not detected. Preliminary blood cultures reporting gram-positive cocci. Received a liter fluid bolus as well as a dose of Lasix. 07/24/2023 midline catheter pending. Continues on oral Lasix, diuresing well with 24-hour I&O reflecting a negative fluid balance. renal function improving, BUN 30 ,creatinine 0.77. Maintain on IV antibiotics of cefazolin and clindamycin as per infectious disease. Afebrile, WBC decreased to 12.6. Denies worsening of left lower extremity tenderness.preliminary repeat blood cultures reporting no growth after 24 hours. Coumadin as per pharmacy dosing, current INR 2.1. Blood sugars controlled. Denies chest pain, palpitations or increased shortness of breath. Maintaining O2 sats in the 90s on 2 L nasal cannula. Reports occasional nonproductive cough-worse at night. 07/25/2023 maintained on IV antibiotics as per infectious disease, afebrile. Repeat blood cultures reporting no growth after 48 hours .creatinine 0.78. left lower extremity redness , tenderness persist. denies chest pain, palpitations or shortness of breath. Maintaining O2 sats in the 90s on 2 L nasal cannula. Significant clinical improvement. Denies chest pain, palpitations or shortness of breath. Denies lightheadedness, dizziness or focal deficits. Evaluated by PT recommending subacute rehab. Patient will be discharged to subacute rehab. today in a stable condition with guarded prognosis pending final DC recommendations/antibiotics/wound care and clearance as per infectious disease. The impression and plan of care has been dictated as directed. : I performed a history and examination of this patient, discussed the same with the dictator. I agree with the dictator's note ,documented as a scribe. Any additional findings or plans will be noted. Patient Condition at Discharge: Stable Plan - Discharge Summary Discharge Rx Participant: No New Discharge Prescriptions: New Ipratropium-Albuterol Nebulize [Duoneb 0.5 mg-3 mg/3 ml Soln] 3 ml INHALATION Q4H PRN each PRN Reason: Shortness Of Breath Or Wheezing Budesonide-Formot 160-4.5 Mcg [Symbicort 160-4.5 Mcg Inhaler] 2 puff INHALATION RT-BID each Benzocaine/Menthol Lozeng [Cepacol lozenge] 1 each MUCOUS MEM Q4HR PRN lozenge PRN Reason: Sore Throat Insulin Detemir (Levemir) [Levemir] 10 unit SQ DAILY@0700 each polyethylene glycoL 3350 [Miralax] 17 gm PO BID PRN packet PRN Reason: Constipation Acetaminophen Tab [Tylenol] 650 mg PO Q6HR PRN tab PRN Reason: Fever And/ Or Pain Ipratropium-Albuterol Nebulize [Duoneb 0.5 mg-3 mg/3 ml Soln] 3 ml INHALATION RT-QID #120 each Nystatin 100,000 Unit/gm Powd [Mycostatin Powder] 1 applic TOPICAL TID each INSULIN LISPRO (HumaLOG) [humaLOG] 0 unit SQ ACHS #10 ml Furosemide [Lasix] 40 mg PO BID@0900,1600 tab HYDROcodone/APAP 5-325MG [Linden 5-325] 1 each PO Q6HR PRN #12 tab PRN Reason: Pain Potassium Chloride ER [K-Dur 20] 20 meq PO DAILY #30 tab Continue Atorvastatin [Lipitor] 40 mg PO HS OLANZapine 10 mg PO HS modafiniL [Provigil] 200 mg PO DAILY Nitroglycerin Sl Tabs [Nitrostat] 0.4 mg SL Q5M PRN PRN Reason: Chest Pain Docusate [Colace] 100 mg PO DAILY Metoprolol Succinate [Toprol XL] 50 mg PO DAILY Amitriptyline HCl [Elavil] 25 mg PO HS Bismuth Subsalicylate [Pepto-Bismol Ultra] 525 mg PO DIRECTED PRN PRN Reason: Gi Upset Tamsulosin [Flomax] 0.4 mg PO HS Mv-Min/Folic/K1/Lycopen/Lutein [Centrum Silver Men Tablet] 1 tab PO DAILY buPROPion XL [Wellbutrin XL] 300 mg PO DAILY Changed Warfarin [Coumadin] 5 mg PO HS #0 Discontinued metFORMIN HCL [Glucophage] 500 mg PO DAILY metOLazone 2.5 mg PO DAILY lisinopriL [Zestril] 20 mg PO DAILY Furosemide [Lasix] 40 mg PO DAILY #30 tablet traMADol HCl [Ultram] 50 mg PO TID PRN tab PRN Reason: Pain Discharge Medication List Atorvastatin [Lipitor] 40 mg PO HS 11/23/16 [History] Mv-Min/Folic/K1/Lycopen/Lutein [Centrum Silver Men Tablet] 1 tab PO DAILY 08/25/21 [History] OLANZapine 10 mg PO HS 08/25/21 [History] buPROPion XL [Wellbutrin XL] 300 mg PO DAILY 08/25/21 [History] modafiniL [Provigil] 200 mg PO DAILY 08/25/21 [History] Amitriptyline HCl [Elavil] 25 mg PO HS 07/20/23 [History] Bismuth Subsalicylate [Pepto-Bismol Ultra] 525 mg PO DIRECTED PRN 07/20/23 [History] Docusate [Colace] 100 mg PO DAILY 07/20/23 [History] Metoprolol Succinate [Toprol XL] 50 mg PO DAILY 07/20/23 [History] Nitroglycerin Sl Tabs [Nitrostat] 0.4 mg SL Q5M PRN 07/20/23 [History] Tamsulosin [Flomax] 0.4 mg PO HS 07/20/23 [History] Acetaminophen Tab [Tylenol] 650 mg PO Q6HR PRN tab 07/26/23 [Rx] Benzocaine/Menthol Lozeng [Cepacol lozenge] 1 each MUCOUS MEM Q4HR PRN lozenge 07/26/23 [Rx] Budesonide-Formot 160-4.5 Mcg [Symbicort 160-4.5 Mcg Inhaler] 2 puff INHALATION RT-BID each 07/26/23 [Rx] Furosemide [Lasix] 40 mg PO BID@0900,1600 tab 07/26/23 [Rx] HYDROcodone/APAP 5-325MG [Linden 5-325] 1 each PO Q6HR PRN #12 tab 07/26/23 [Rx] INSULIN LISPRO (HumaLOG) [humaLOG] 0 unit SQ ACHS #10 ml 07/26/23 [Rx] Insulin Detemir (Levemir) [Levemir] 10 unit SQ DAILY@0700 each 07/26/23 [Rx] Ipratropium-Albuterol Nebulize [Duoneb 0.5 mg-3 mg/3 ml Soln] 3 ml INHALATION Q4H PRN each 07/26/23 [Rx] Ipratropium-Albuterol Nebulize [Duoneb 0.5 mg-3 mg/3 ml Soln] 3 ml INHALATION RT-QID #120 each 07/26/23 [Rx] Nystatin 100,000 Unit/gm Powd [Mycostatin Powder] 1 applic TOPICAL TID each 07/26/23 [Rx] Potassium Chloride ER [K-Dur 20] 20 meq PO DAILY #30 tab 07/26/23 [Rx] Warfarin [Coumadin] 5 mg PO HS #0 07/26/23 [Rx] polyethylene glycoL 3350 [Miralax] 17 gm PO BID PRN packet 07/26/23 [Rx] Follow up Appointment(s)/Referral(s): Cory Goodman MD [Primary Care Provider] - 1 Week (After DC from subacute rehab) Activity/Diet/Wound Care/Special Instructions: Subacute rehab; CBC, BMP in 2 days PT/INR tomorrow Discharge Disposition: TRANSFER TO SNF/ECF
[2023-07-26 12:12] LABS: Glucose,Whole Blood 104 mg/dL (70-110)
[2023-07-26 15:12] VITALS: BMI 43.6
[2023-07-26 16:50] LABS: Glucose,Whole Blood 112 mg/dL (70-110)
[2023-07-26] MEDS: WARFARIN 1.5 MG TAB PO ONE (16:56)
[2023-07-26 19:55] LABS: Glucose,Whole Blood 141 mg/dL (70-110)
[2023-07-27 05:59] LABS: Glucose,Whole Blood 111 mg/dL (70-110)
[2023-07-27 09:51] LABS: INR 2.5 (<1.2); Prothrombin Time 24.8 sec (10.0-12.5)
[2023-07-27 11:59] LABS: Glucose,Whole Blood 131 mg/dL (70-110)
--- NOTE | 2023-07-27 15:38 | P.PN ---
Subjective Progress Note Date: 07/27/23 Principal diagnosis: Reason for follow-up is left lower extremity cellulitis with bacteremia Patient is a 72-year-old male with a past medical history significant for diabetes mellitus hypertension sleep apnea COPD heart failure patient presenting to the ER for evaluation of shortness of breath and chills and weakness, patient did have mental status changes and noticed to have left lower extremity cellulitis and subsequently blood cultures came back positive with b eta-hemolytic strep group C. On today's evaluation that is 07/27/2023,the patient denies any fever or any chills, patient is breathing comfortably on 2 L nasal cannula oxygen the patient denies chest pain shortness of breath and no significant cough, patient denies abdominal pain, no nausea vomiting or diarrhea. Left lower extremity pain and swelling slightly decreased. PT/INR of 2.5 blood cultures been negative so far Objective - Vital Signs Vital signs: Vital Signs Temp 98.1 F 07/27/23 08:13 Pulse 74 07/27/23 08:37 Resp 20 07/27/23 08:13 BP 119/57 07/27/23 08:13 Pulse Ox 95 07/27/23 08:26 FiO2 Intake & Output 07/26/23 07/27/23 07/27/23 18:59 06:59 18:59 Intake Total 660 Output Total 1300 1050 Balance -640 -1050 Weight 134 kg Intake: Intake, IV Titration 300 Amount Clindamycin 900 mg In 100 Dextrose 5% in Water 50 ml @ 50 mls/hr IVPB Q8H [facility] Rx#:[id number] ceFAZolin 3 gm In Sodium 200 Chloride 0.9% 100 ml @ 200 mls/hr IVPB Q8H [facility] Rx#:[id number] Oral 360 Output: Urine 1300 1050 Other: Voiding Method External Catheter External Catheter External Catheter - Exam GENERAL DESCRIPTION: An elderly male lying in bed in no distress RESPIRATORY SYSTEM: Unlabored breathing , decreased breath sounds at bases HEART: S1 S2 regular rate and rhythm , ABDOMEN: Soft , no tenderness EXTREMITIES: Left leg swelling redness slightly decreased still have some erythema to the left medial thigh - Labs CBC & Chem 7: 07/26/23 10:31 07/26/23 10:31 Labs: Abnormal Lab Results - Last 24 Hours (Table) 07/26/23 07/26/23 07/26/23 Range/Units 10:31 10:31 10:31 WBC 11.4 H (3.8-10.6) k/uL RBC 3.89 L (4.30-5.90) m/uL Hgb 12.2 L (13.0-17.5) gm/dL Hct 37.7 L (39.0-53.0) % Neutrophils # 8.8 H (1.3-7.7) k/uL Monocytes # 1.2 H (0-1.0) k/uL PT 29.8 H (10.0-12.5) sec INR 3.0 H (<1.2) Chloride 97 L (98-107) mmol/L Carbon Dioxide 34 H (22-30) mmol/L BUN 30 H (9-20) mg/dL Glucose 164 H (74-99) mg/dL POC Glucose (mg/dL) (70-110) mg/dL 07/26/23 07/26/23 07/27/23 Range/Units 16:48 19:53 05:56 WBC (3.8-10.6) k/uL RBC (4.30-5.90) m/uL Hgb (13.0-17.5) gm/dL Hct (39.0-53.0) % Neutrophils # (1.3-7.7) k/uL Monocytes # (0-1.0) k/uL PT (10.0-12.5) sec INR (<1.2) Chloride (98-107) mmol/L Carbon Dioxide (22-30) mmol/L BUN (9-20) mg/dL Glucose (74-99) mg/dL POC Glucose (mg/dL) 112 H 141 H 111 H (70-110) mg/dL 07/27/23 Range/Units 09:24 WBC (3.8-10.6) k/uL RBC (4.30-5.90) m/uL Hgb (13.0-17.5) gm/dL Hct (39.0-53.0) % Neutrophils # (1.3-7.7) k/uL Monocytes # (0-1.0) k/uL PT 24.8 H (10.0-12.5) sec INR 2.5 H (<1.2) Chloride (98-107) mmol/L Carbon Dioxide (22-30) mmol/L BUN (9-20) mg/dL Glucose (74-99) mg/dL POC Glucose (mg/dL) (70-110) mg/dL Assessment and Plan (1) Left leg cellulitis Current Visit: Yes Status: Acute Code(s): L03.116 - CELLULITIS OF LEFT LOWER LIMB SNOMED Code(s): 57431994775876395 (2) Sepsis Current Visit: Yes Status: Acute Code(s): A41.9 - SEPSIS, UNSPECIFIED ORGANISM SNOMED Code(s): 92151837 Plan: 1patient presented to hospital with mental status changes in this patient noticed to have a Fever elevated white count elevated lactic acid did have criteria for SIRS/sepsis source likely left lower extremity cellulitis with diffuse swelling redness more likely streptococcal disease. 2patient with renal insufficiency high risk of nephrotoxicity from vancomycin. 3streptococcal bacteremia source is left lower extremity cellulitis blood culture repeated document clearance of bacteremia 4patient did have extensive cellulitis, patient did have CT of left lower extremity on 07/23/2023 that was negative for any abscess 5-patient did have some clinical improvement still significant erythema especially to the medial thigh area will advise to continue with cefazolin and clindamycin for another 24 hours before transitioning to oral Keflex Dictation was produced using [employer] dictation software. please excuse any grammatical, word or spelling errors. Time with Patient: Less than 30
[2023-07-27 15:56] VITALS: RESP 16
[2023-07-27 16:29] LABS: Glucose,Whole Blood 175 mg/dL (70-110)
[2023-07-27] MEDS: WARFARIN 2 MG TAB PO ONE (17:10)
[2023-07-27 19:45] LABS: Glucose,Whole Blood 182 mg/dL (70-110)
[2023-07-27 21:08] VITALS: TEMP 98.2
[2023-07-28 06:07] LABS: Glucose,Whole Blood 93 mg/dL (70-110)
[2023-07-28 11:41] LABS: Glucose,Whole Blood 99 mg/dL (70-110)
[2023-07-28 12:30] LABS: INR 2.4 (<1.2); Prothrombin Time 23.7 sec (10.0-12.5)
--- NOTE | 2023-07-28 12:35 | P.PN ---
Subjective Progress Note Date: 07/28/23 Principal diagnosis: Reason for follow-up is left lower extremity cellulitis with bacteremia Patient is a 72-year-old male with a past medical history significant for diabetes mellitus hypertension sleep apnea COPD heart failure patient presenting to the ER for evaluation of shortness of breath and chills and weakness, patient did have mental status changes and noticed to have left lower extremity cellulitis and subsequently blood cultures came back positive with b eta-hemolytic strep group C. On today's evaluation that is 07/28/2023,the patient remains to be afebrile, patient is on room air not requiring supplemental oxygen and denies any shortness of breath no chest pain or cough.Patient denies having any nausea or vomiting, no abdominal pain and no diarrhea has been reported, pain to the left lower extremity has improved. The patient did have a INR of 2.4 Objective - Vital Signs Vital signs: Vital Signs Temp 98.2 F 07/27/23 20:40 Pulse 72 07/28/23 08:33 Resp 16 07/28/23 04:00 BP 126/78 07/28/23 04:00 Pulse Ox 94 L 07/28/23 08:19 FiO2 Intake & Output 07/27/23 07/28/23 07/28/23 18:59 06:59 18:59 Intake Total 354 1080 240 Output Total 1300 600 225 Balance -946 480 15 Intake: Oral 354 1080 240 Output: Urine 1300 600 225 Other: Voiding Method External Catheter External Catheter - Exam GENERAL DESCRIPTION: An elderly male lying in bed in no distress RESPIRATORY SYSTEM: Unlabored breathing , decreased breath sounds at bases HEART: S1 S2 regular rate and rhythm , ABDOMEN: Soft , no tenderness EXTREMITIES: Left leg swelling redness has decreased erythema to the left medial thigh also decreased no drainage - Labs CBC & Chem 7: 07/26/23 10:31 07/26/23 10:31 Labs: Abnormal Lab Results - Last 24 Hours (Table) 07/27/23 07/27/23 07/27/23 Range/Units 11:58 16:27 19:43 POC Glucose (mg/dL) 131 H 175 H 182 H (70-110) mg/dL Microbiology - Last 24 Hours (Table) 07/22/23 07:46 Blood Culture - Final Blood 07/22/23 07:46 Blood Culture - Final Blood Assessment and Plan (1) Left leg cellulitis Current Visit: Yes Status: Acute Code(s): L03.116 - CELLULITIS OF LEFT LOWER LIMB SNOMED Code(s): 45152104250565039 (2) Sepsis Current Visit: Yes Status: Acute Code(s): A41.9 - SEPSIS, UNSPECIFIED ORGANISM SNOMED Code(s): 24291901 Plan: 1patient presented to hospital with mental status changes in this patient noticed to have a Fever elevated white count elevated lactic acid did have criteria for SIRS/sepsis source likely left lower extremity cellulitis with dif fuse swelling redness more likely streptococcal disease. 2patient with renal insufficiency high risk of nephrotoxicity from vancomycin. 3streptococcal bacteremia source is left lower extremity cellulitis blood culture repeated document clearance of bacteremia 4patient did have extensive cellulitis, patient did have CT of left lower extremity on 07/23/2023 that was negative for any abscess 5-patient has shown clinical improvement plan is to finish therapy with oral Keflex 500 mg p.o. every 6 hours for 10 days, I no need to monitor closely while on antibiotics local care to continue with the Wil wrap to keep the swelling down discussed with the nursing staff Dictation was produced using [employer] dictation software. please excuse any grammatical, word or spelling errors. Time with Patient: Less than 30
[2023-07-28 12:37] VITALS: BP 127/66; PULSE 61
--- NOTE | 2023-07-28 15:24 | P.DS ---
Providers Date of admission: 07/21/23 00:22 Attending physician: Cory Goodman MD Consults: 07/21/23 00:21 Consult Physician Routine Consulting Provider: Rob Zapata Consult Reason/Comments: hyperkalemia, lyndsey Do you want consulting provider notified?: Yes 07/21/23 08:21 Consult Physician Routine Consulting Provider: Juice Chery Consult Reason/Comments: sepsis Do you want consulting provider notified?: Yes Primary care physician: Cory Goodman MD Hospital Course: Final Diagnosis Altered mental status secondary to acute metabolic and toxic encephalopathy secondary to sepsis and acute kidney injury Left lower extremity cellulitis with sepsis and bacteremia streptococcal Heart failure chronic systolic dysfunction Acute kidney injury prerenal due to sepsis Hyperkalemia from LYNDSEY COPD Diabetes mellitus Hypertension Sleep apnea Coronary artery disease status post cardiac catheterization Valvular heart disease with aortic valve replacement Depression Former Smoker Discharge Disposition Patient is stable for discharge to subacute rehab. ID recommending 10 days of antibiotic therapy with oral keflex on discharge. Patient has been taken off metformin, lisinopril, metalazone, lasix. Recommending to repeat BMP in 2 to 3 days on discharge. PT/INR monitoring recommending to repeat labs in 2 days. Follow up with PCP Dr. Cory Goodman and Dr. Chery. Patient to also see nephrology. INR 2.4. Hospital Course This is a 72-year-old gentleman with past medical history significant for systolic CHF, COPD, morbid obesity, diabetes mellitus, hypertension, obstructive sleep apnea, permanent pacemaker, atrial fibrillation on Coumadin, aortic valve replacement(bovine), former nicotine dependence, depression, recurrent UTIs and multiple other medical issues brought into the ER via EMS with complaints of fevers, fatigue ,increased generalized weakness accompanied by confusion as reported per family. Patient reports having difficulty walking, diaphoresis. denies falls or trauma. Denies chest pain, palpitations or increased shortness of breath. Maintaining O2 sats In the 90s on 2 L nasal cannula. Last x-ray reporting mild cardiomegaly and pulmonary vascular congestion, no jojo pulmonary edema. Brain CT reported no acute findings. Afebrile, hypotensive on admission, maintaining O2 sats in the low 90s on room air and progressed to 2 L nasal cannula to maintain. WBC 25.7, hemoglobin 14.5 platelets 235, INR 3.3. Sodium 138, potassium 5.9, received hyperkalemic cocktail, decreased to 4.5, bicarb 28, BUN 42, creatinine 1.26, blood sugars controlled, lactic acid 2.5 de creased to 1.9. Troponin negative x 1. proBNP 5340. UA reported rare bacteria 6 WBCs, small leukocytes, negative nitrates, moderate blood. Influenza type A/type B/RSV/COVID not detected. Preliminary blood cultures reporting gram- positive cocci. Received a liter fluid bolus as well as a dose of Lasix. Patient did have mental status changes and noticed to have left lower extremity cellulitis and subsequently blood cultures came back positive with beta- hemolytic strep group C. He was seen and evaluated by infectious disease for the lower extremity cellulitis and was treated IP with cefazolin and clindamycin. He had a lower extremity CT showing no evidence for organizing fluid collection, similar to findings on ultrasound. The cellulitic changes noted with associated reactive lymphadenopathy. Patient improved clinically and was cleared for discharge to rehab on oral antibiotics. Was also evaluated by nephrology this admission for the acute kidney injury he was taken off of his diuretics and nephrotoxic medications his renal function is normalized we would recommend patient to follow-up with nephrology on discharge. Today he was evaluated today at bedside, swelling to the left LE has improved, there is significant erythema and hyerpigmentation, some blisters and weeping noted. Leg is wrapped with gauze kerlex and CRISS dressing. Patient is evaluated today alert oriented x 3. He is not having any chest pain reports no shortness of breath. Renal function is normalized. INR 2.4. White count is down to 11.4. Hemodynamically, he is stable he is on room air with oxygen saturations of 96%, he is afebrile. Please see medication reconciliation for list of current medication. Thank you for allowing us to participate in the care of this patient. The impression and plan of care has been dictated by Yesika Ventura, Nurse Practitioner as directed. Dr. Rafi MD I have performed a history and physical examination and medical decision making of this patient, discussed the same with the dictator, and agree with the dictators assessment and plan as written, documented as a scribe. Based on total visit time, I have performed more than 50% of this visit. Patient Condition at Discharge: Fair Plan - Discharge Summary Discharge Rx Participant: No New Discharge Prescriptions: New Ipratropium-Albuterol Nebulize [Duoneb 0.5 mg-3 mg/3 ml Soln] 3 ml INHALATION Q4H PRN each PRN Reason: Shortness Of Breath Or Wheezing Budesonide-Formot 160-4.5 Mcg [Symbicort 160-4.5 Mcg Inhaler] 2 puff INHALATION RT-BID each Benzocaine/Menthol Lozeng [Cepacol lozenge] 1 each MUCOUS MEM Q4HR PRN lozenge PRN Reason: Sore Throat Insulin Detemir (Levemir) [Levemir] 10 unit SQ DAILY@0700 each polyethylene glycoL 3350 [Miralax] 17 gm PO BID PRN packet PRN Reason: Constipation Acetaminophen Tab [Tylenol] 650 mg PO Q6HR PRN tab PRN Reason: Fever And/ Or Pain Cephalexin [Keflex] 500 mg PO Q6HR 10 Days #40 cap Ipratropium-Albuterol Nebulize [Duoneb 0.5 mg-3 mg/3 ml Soln] 3 ml INHALATION RT-QID #120 each Nystatin 100,000 Unit/gm Powd [Mycostatin Powder] 1 applic TOPICAL TID each INSULIN LISPRO (HumaLOG) [humaLOG] 0 unit SQ ACHS #10 ml Furosemide [Lasix] 40 mg PO BID@0900,1600 tab HYDROcodone/APAP 5-325MG [[place] 5-325] 1 each PO Q6HR PRN #12 tab PRN Reason: Pain Potassium Chloride ER [K-Dur 20] 20 meq PO DAILY #30 tab Continue Atorvastatin [Lipitor] 40 mg PO HS OLANZapine 10 mg PO HS Nitroglycerin Sl Tabs [Nitrostat] 0.4 mg SL Q5M PRN PRN Reason: Chest Pain Docusate [Colace] 100 mg PO DAILY Metoprolol Succinate [Toprol XL] 50 mg PO DAILY Amitriptyline HCl [Elavil] 25 mg PO HS Bismuth Subsalicylate [Pepto-Bismol Ultra] 525 mg PO DIRECTED PRN PRN Reason: Gi Upset Tamsulosin [Flomax] 0.4 mg PO HS modafiniL [Provigil] 200 mg PO DAILY #2 tab Mv-Min/Folic/K1/Lycopen/Lutein [Centrum Silver Men Tablet] 1 tab PO DAILY buPROPion XL [Wellbutrin XL] 300 mg PO DAILY Changed Warfarin [Coumadin] 5 mg PO HS #0 Discontinued metFORMIN HCL [Glucophage] 500 mg PO DAILY metOLazone 2.5 mg PO DAILY lisinopriL [Zestril] 20 mg PO DAILY Furosemide [Lasix] 40 mg PO DAILY #30 tablet traMADol HCl [Ultram] 50 mg PO TID PRN tab PRN Reason: Pain Discharge Medication List Atorvastatin [Lipitor] 40 mg PO HS 11/23/16 [History] Mv-Min/Folic/K1/Lycopen/Lutein [Centrum Silver Men Tablet] 1 tab PO DAILY 08/25/21 [History] OLANZapine 10 mg PO HS 08/25/21 [History] buPROPion XL [Wellbutrin XL] 300 mg PO DAILY 08/25/21 [History] Amitriptyline HCl [Elavil] 25 mg PO HS 07/20/23 [History] Bismuth Subsalicylate [Pepto-Bismol Ultra] 525 mg PO DIRECTED PRN 07/20/23 [History] Docusate [Colace] 100 mg PO DAILY 07/20/23 [History] Metoprolol Succinate [Toprol XL] 50 mg PO DAILY 07/20/23 [History] Nitroglycerin Sl Tabs [Nitrostat] 0.4 mg SL Q5M PRN 07/20/23 [History] Tamsulosin [Flomax] 0.4 mg PO HS 07/20/23 [History] Acetaminophen Tab [Tylenol] 650 mg PO Q6HR PRN tab 07/26/23 [Rx] Benzocaine/Menthol Lozeng [Cepacol lozenge] 1 each MUCOUS MEM Q4HR PRN lozenge 07/26/23 [Rx] Budesonide-Formot 160-4.5 Mcg [Symbicort 160-4.5 Mcg Inhaler] 2 puff INHALATION RT-BID each 07/26/23 [Rx] Furosemide [Lasix] 40 mg PO BID@0900,1600 tab 07/26/23 [Rx] HYDROcodone/APAP 5-325MG [[place] 5-325] 1 each PO Q6HR PRN #12 tab 07/26/23 [Rx] INSULIN LISPRO (HumaLOG) [humaLOG] 0 unit SQ ACHS #10 ml 07/26/23 [Rx] Insulin Detemir (Levemir) [Levemir] 10 unit SQ DAILY@0700 each 07/26/23 [Rx] Ipratropium-Albuterol Nebulize [Duoneb 0.5 mg-3 mg/3 ml Soln] 3 ml INHALATION Q4H PRN each 07/26/23 [Rx] Ipratropium-Albuterol Nebulize [Duoneb 0.5 mg-3 mg/3 ml Soln] 3 ml INHALATION RT-QID #120 each 07/26/23 [Rx] Nystatin 100,000 Unit/gm Powd [Mycostatin Powder] 1 applic TOPICAL TID each 07/26/23 [Rx] Potassium Chloride ER [K-Dur 20] 20 meq PO DAILY #30 tab 07/26/23 [Rx] Warfarin [Coumadin] 5 mg PO HS #0 07/26/23 [Rx] polyethylene glycoL 3350 [Miralax] 17 gm PO BID PRN packet 07/26/23 [Rx] Cephalexin [Keflex] 500 mg PO Q6HR 10 Days #40 cap 07/28/23 [Rx] modafiniL [Provigil] 200 mg PO DAILY #2 tab 07/28/23 [Rx] Follow up Appointment(s)/Referral(s): Cory Goodman MD [Primary Care Provider] - 1 Week (After DC from subacute rehab) Juice Chery MD [STAFF PHYSICIAN] - 1 Week Ambulatory/Diagnostic Orders: Basic Metabolic Panel [LAB.AMB] Location: None Selected Complete Blood Count w/diff [LAB.AMB] Time Frame: 3 Days, Location: None Selected Prothrombin Time INR [LAB.AMB] Time Frame: 3 Days, Location: None Selected Activity/Diet/Wound Care/Special Instructions: Subacute rehab; CBC, BMP in 2 days PT/INR tomorrow Discharge on oral keflex 500 mg every 6 hours for 10 days as per infectious disease and recommend to follow up with ID outpatient in 1 weeks time. Discharge Disposition: TRANSFER TO SNF/ECF
[2023-07-28] MEDS ORDERED: WARFARIN 2 MG TAB PO ONE (18:00)
== END 2023-07-28 14:26 | DRG 871 ==
LOC: EC 17:22 → 3SCARD 07-21 00:22 → 3NCARDOBS 07-27 02:42 → 3SCARD 07-27 02:45 → 3NCARDOBS 07-27 02:47 → 3SCARD 07-27 02:58
PROVIDERS: ADMIT Family Medicine; ATTEND Family Medicine
PROC: 02HV33Z Insertion of Infusion Device into Superior Vena Cava, Percutaneous Approach (ICD-10-PCS; principal; 2023-07-24 10:15)
DX: A41.89 Other specified sepsis (principal); G92.8 Other toxic encephalopathy; J96.01 Acute respiratory failure with hypoxia; N17.9 Acute kidney failure, unspecified; Z68.41 Body mass index [BMI] 40.0-44.9, adult; L03.116 Cellulitis of left lower limb; I50.22 Chronic systolic (congestive) heart failure; I48.19 Other persistent atrial fibrillation; N39.0 Urinary tract infection, site not specified; R65.20 Severe sepsis without septic shock; E66.01 Morbid (severe) obesity due to excess calories; E78.5 Hyperlipidemia, unspecified; E87.5 Hyperkalemia; F32.A Depression, unspecified; G47.30 Sleep apnea, unspecified; I25.10 Atherosclerotic heart disease of native coronary artery without angina pectoris; I11.0 Hypertensive heart disease with heart failure; J44.9 Chronic obstructive pulmonary disease, unspecified; R79.1 Abnormal coagulation profile; Z95.3 Presence of xenogenic heart valve; Z87.440 Personal history of urinary (tract) infections; Z79.899 Other long term (current) drug therapy; Z79.84 Long term (current) use of oral hypoglycemic drugs; Z79.51 Long term (current) use of inhaled steroids; Z79.4 Long term (current) use of insulin; Z79.01 Long term (current) use of anticoagulants
CPT/HCPCS: 36410; 36415; 70450; 71046; 76770; 76937; 80048; 80053; 81001; 83036; 83605; 83735; 83880; 84100; 84132; 84145; 84484; 85025; 85610; 85730; 87040; 87077; 87086; 87186; 87636; 93005; 94640; 94760; 96361; 96365; 96366; 96367; 96375; 96376; 99291

== ENCOUNTER → 2024-04-30 | Outpatient (CLI) | payer MEDICARE ==
--- NOTE | 2024-04-30 11:03 | CA ---
Lexiscan Nuclear Stress Test Report Name: Neo Gaston Exam Date: 04/30/2024 10:13 Exam Location: [facility] Ht (in): 68 Wt (lb): 375 BSA: 2.67 Ordering Phys: Aki Goodman MD Referring Phys: AKI GOODMAN Technologist: Darshan Malave Age: 73 Gender: M : 1950 Procedure CPT: Indications: I50.22 CHRONIC SYSTOLIC (CONGESTIVE) HEART FAILURE ICD-10 Codes: Patient History: Medications: Meds past 24 hrs: Pretest Chest Pain: STRESS TEST Lexiscan Protocol Exercise Duration (min:sec): 02:[address] Depressions (mm): Angina Score: Gan Score: Resting HR (bpm): 65 Peak HR (bpm): 65 Resting BP (mmHg): 133 / 93 Peak BP (mmHg): 120 / 72 MPHR: 146 Target HR: 124 % MPHR: 45 METS: 1.0 Total Dose: Peak Dose: Atropine: Double Product: 7800 BP Response: Stress Termination: INFUSION COMPLETE Stress Symptoms: NO SYMPTOMS Stress Summary: ECG ANALYSIS Resting ECG: Ventricular paced. Stress ECG: No ECG changes from baseline with Lexiscan infusion. CONCLUSIONS No ECG evidence of ischemia with Lexiscan infusion. Nuclear test results to follow. Dr. Mely Wick MD (Electronically Signed) Final Date: 30 April 2024 11:02
--- NOTE | 2024-04-30 11:43 | NM ---
EXAMINATION TYPE: NM stress lexiscan cardiolite DATE OF EXAM: 04/30/2024 COMPARISON: NONE CLINICAL INDICATION: Male, 73 years old with history of I50.22 CHRONIC SYSTOLIC (CONGESTIVE) HEART FA ILURE; TECHNIQUE: After the intravenous administration of 10.2 mCi Tc 99m Sestamibi - Cardiolite resting SP ECT images acquired 45 minutes post injection. The patient received 0.4mg Lexiscan, 25.3 mCi Tc 99m Sestamibi - Stress images obtained [address] injection FINDINGS: Review of stress and rest SPECT images demonstrates reduced uptake on both stress and rest imaging wi thin the inferior myocardium. No definite stress-induced reversible ischemia. Gated analysis shows r est regional wall motion with an estimated left ventricular ejection fraction of 30 %. IMPRESSION: No scintigraphic evidence for reversible ischemia. Resting ejection fraction is only 30% correlate cl inically. [facility], , 04/30/2024 11:40 AM
== END | disposition home or self-care (01) ==
LOC: RADNMMAIN 08:11
PROVIDERS: ATTEND Family Medicine
DX: I50.22 Chronic systolic (congestive) heart failure (principal); I48.0 Paroxysmal atrial fibrillation; I20.89 Other forms of angina pectoris
CPT/HCPCS: 93017; 78452; A9500

== ENCOUNTER 2024-09-02 09:19 | Emergency (ER) | payer MEDICARE ==
[2024-09-02 09:25] VITALS: RESP 18; TEMP 97
--- NOTE | 2024-09-02 10:02 | CT ---
EXAMINATION TYPE: CT brain heather wo con DATE OF EXAM: 09/02/2024 COMPARISON: CT brain July 04, 2024 CLINICAL INDICATION: Male, 73 years old with history of fall head injury on Coumadin, Code Coag. Fall on thinners., TECHNIQUE: CT scan of the head and cervical spine are performed without contrast. CT DLP: 1735.7 mGycm. Automated Exposure Control for Dose Reduction was Utilized. FINDINGS: There is no acute intracranial hemorrhage or midline shift identified. There is mild to m oderate ventricular and sulcal prominence redemonstrated. There is moderate to severe low-attenuation in the deep and periventricular white matter redemonstrated. The calvarium is intact. Bilateral apha nettie redemonstrated. The paranasal sinuses are grossly clear. Cervical spine is visualized in its entirety from C1 through upper thoracic levels and demonstrates g rade 1 anterolisthesis C2 on C3 and C3 on C4 along with grade 1 retrolisthesis C4 on C5 and C5 on C6 without evidence of acute fracture or dislocation. Prevertebral soft tissue appears within normal li mits. The C1-C2 articulation is within normal limits on the coronal images. Vertebral body heights are maintained. Disc space heights are fairly well maintained. Spinal canal is preserved. Axial image s show multilevel uncovertebral and facet degenerative changes bilaterally. Right temporal surgical c hanges present. There is moderate to severe calcified plaque bilateral carotid bulb level. Thyroid gl and appears within normal limits. There is partial visualization of pacemaker leads. IMPRESSION: 1. There is no acute fracture or dislocation evident in the cervical spine. 2. No acute intracranial hemorrhage or midline shift is seen. [facility], , 09/02/2024 9:59 AM
[2024-09-02 10:22] LABS: Basophils # (A) 0.1 k/uL (0-0.2); Basophils % (A) 1 %; Eosinophils # (A) 0.3 k/uL (0-0.7); Eosinophils % (A) 3 %; HCT 43.2 % (39.0-53.0); HGB 13.8 gm/dL (13.0-17.5); Hypochromasia Slight; Lymphocytes # (A) 1.9 k/uL (1.0-4.8); Lymphocytes % (A) 20 %; MCHC 31.8 g/dL (31.0-37.0); MCV 94.3 fL (80.0-100.0); Mean Platelet Volume 6.8; Monocytes # (A) 0.7 k/uL (0-1.0); Monocytes % (A) 8 %; Neutrophils # (A) 6.2 k/uL (1.3-7.7); Neutrophils % (A) 66 %; Platelet Count 317 k/uL (150-450); RBC 4.58 m/uL (4.30-5.90); RDW 13.7 % (11.5-15.5); WBC 9.4 k/uL (3.8-10.6)
[2024-09-02 10:32] LABS: INR 3.6 (<1.2); Partial Thromboplastin Time 40.3 sec (22.0-30.0); Prothrombin Time 36.1 sec (10.0-12.5)
[2024-09-02 10:34] LABS: ALT 34 U/L (4-49); AST 40 U/L (17-59); African American GFR (CKD) 89 (>60 ml/min/1.73 sqM); Albumin 3.7 g/dL (3.5-5.0); Alkaline Phosphatase 113 U/L (38-126); Anion Gap 6 mmol/L; Blood Urea Nitrogen 32 mg/dL (9-20); Calcium 8.9 mg/dL (8.4-10.2); Carbon Dioxide 31 mmol/L (22-30); Chloride 99 mmol/L (98-107); Glucose 113 mg/dL (74-99); Magnesium 2.1 mg/dL (1.6-2.3); Non-African American GFR(CKD) 77 (>60 ml/min/1.73 sqM); Potassium 5.1 mmol/L (3.5-5.1); Sodium 136 mmol/L (137-145); Total Bilirubin 0.5 mg/dL (0.2-1.3); Total Protein 6.6 g/dL (6.3-8.2)
--- NOTE | 2024-09-02 10:34 | ED ---
General Adult HPI - General Chief complaint: Fall Stated complaint: fall, facial injury Time Seen by Provider: 09/02/24 09:23 Source: patient, RN notes reviewed, old records reviewed Mode of arrival: wheelchair - History of Present Illness Initial comments: 73-year-old male presenting status post fall. Patient states he tripped falling forward striking the right side of his face. No sustained loss of consciousness. Patient is on Coumadin. He also had reported some minor right- sided chest wall pain with the fall and bilateral injury to his hands. Denies neck pain. Patient was placed in a c-collar and brought to the emergency department for evaluation. - Related Data Home Medications Medication Instructions Recorded Confirmed Atorvastatin [Lipitor] 40 mg PO HS 11/23/16 07/04/24 Mv-Min/Folic/K1/Lycopen/Lutein 1 tab PO DAILY 08/25/21 07/04/24 [Centrum Silver Men Tablet] OLANZapine 10 mg PO HS 08/25/21 07/04/24 buPROPion XL [Wellbutrin XL] 300 mg PO DAILY 08/25/21 07/04/24 Amitriptyline HCl [Elavil] 25 mg PO HS 07/20/23 07/04/24 Tamsulosin [Flomax] 0.4 mg PO HS 07/20/23 07/04/24 Ergocalciferol [Vitamin D2 (1250 1,250 mcg PO EVANGELISTA 07/04/24 07/04/24 Mcg = 93523 Iu)] Ipratropium-Albuterol Nebulize 3 ml INHALATION RT-QID PRN 07/04/24 07/04/24 [Duoneb 0.5 mg-3 mg/3 ml Soln] Nitroglycerin 0.3mg Mg Sl Tab 0.3 mg SL Q5M PRN 07/04/24 07/04/24 Warfarin [Coumadin] 5 mg PO Q2D 07/04/24 07/04/24 Warfarin [Coumadin] 7.5 mg PO Q2D 07/04/24 07/04/24 metFORMIN HCL [Glucophage] 500 mg PO DAILY 07/04/24 07/04/24 traMADol HCL 50 mg PO TID PRN 07/04/24 07/04/24 Previous Rx's Medication Instructions Recorded modafiniL [Provigil] 200 mg PO DAILY #2 tab 07/28/23 Aspirin 81 mg PO DAILY #30 tab 07/12/24 Furosemide [Lasix] 20 mg PO DAILY #30 tab 07/12/24 Metoprolol Tartrate [Lopressor] 25 mg PO BID #60 tab 07/12/24 Allergies Allergy/AdvReac Type Severity Reaction Status Date / Time midodrine AdvReac Unknown Verified 09/02/24 09:25 Review of Systems ROS Statement: Those systems with pertinent positive or pertinent negative responses have been documented in the HPI. ROS Other: All systems not noted in ROS Statement are negative. Past Medical History Past Medical History: Heart Failure, COPD, Diabetes Mellitus, Hypertension, Sleep Apnea/CPAP/BIPAP Additional Past Medical History / Comment(s): irregular heartbeat, varicose veins, 2 herniated disk/degenerative disks, leaky heart valve, "blood clots in the heart" History of Any Multi-Drug Resistant Organisms: None Reported Past Surgical History: Appendectomy, Bowel Resection, Cardiac Valve Replacement, Heart Catheterization, Orthopedic Surgery, Pacemaker, Tonsillectomy Additional Past Surgical History / Comment(s): left shoulder surgery, surgery for sleep apnea, deana cataracts, Aortic Valve replacement (bovine) 06/2016 Past Anesthesia/Blood Transfusion Reactions: No Reported Reaction Type of Cardiac Device: Permanent Pacemaker Device Placement Date:: 12/24/2018 Past Psychological History: Depression Smoking Status: Former smoker Past Alcohol Use History: Occasional Past Drug Use History: None Reported - Past Family History Mother Family Medical History: No Reported History General Exam General appearance: alert, in no apparent distress Head exam: Present: atraumatic Eye exam: Present: normal appearance, PERRL, periorbital swelling (Superficial abrasion on the bridge of the nose) Neck exam: Present: normal inspection, other (C-collar). Absent: tenderness, meningismus Respiratory exam: Present: normal lung sounds bilaterally. Absent: respiratory distress, wheezes Cardiovascular Exam: Present: regular rate, normal rhythm GI/Abdominal exam: Present: soft. Absent: distended, tenderness Extremities exam: Present: other (Bilateral hand minor abrasions no gross deformity) Neurological exam: Present: alert, oriented X3 Psychiatric exam: Present: normal affect, normal mood Skin exam: Present: warm, dry Course Vital Signs 09/02/24 09/02/24 09:21 11:26 Temperature 97 F L Pulse Rate 64 60 Respiratory 18 18 Rate Blood Pressure 138/87 105/73 O2 Sat by Pulse 98 97 Oximetry Medical Decision Making - Medical Decision Making Was pt. sent in by a medical professional or institution (KELLY Dee, NURSE MIDWIFE, urgent care, hospital, or prison...) When possible be specific @ -No Did you speak to anyone other than the patient for history (EMS, parent, family, police, friend...)? What history was obtained from this source @ -No Did you review nursing and triage notes (agree or disagree)? Why? @ -I reviewed and agree with nursing and triage notes Were old charts reviewed (outside hosp., previous admission, EMS record, old EKG, old radiological studies, urgent care reports/EKG's, prison records)? Report findings @ -No old charts were reviewed Differential Syncope: Valvular disease, hypertrophic cardiomyopathy, pulmonary embolism, tamponade, tachycardia, bradycardia, ID, hypovolemia, hemorrhage, dissection, anemia, intracranial hemorrhage, seizure, hypoglycemia, carbon monoxide poisoning, this is not meant to be an all-inclusive list. EKG interpreted by me (3pts min.). @ -Paced rhythm rate of 60, QRS duration 206, QTc 485 X-rays interpreted by me (1pt min.). @ -X-ray of the bilateral hands and chest negative for traumatic injury CT interpreted by me (1pt min.). @ -CT brain and C-spine negative for intracranial hemorrhage, no cervical fracture or subluxation U/S interpreted by me (1pt. min.). @ -None done What testing was considered but not performed or refused? (CT, X-rays, U/S, labs)? Why? @ -None What meds were considered but not given or refused? Why? @ -None Did you discuss the management of the patient with other professionals (professionals i.e. KELLY Dee, NURSE MIDWIFE, lab, RT, psych nurse, health and social care teacher, clinical data management director, teacher, special technical operations officer, pillowcase cleaner)? Give summary @ -No Was smoking cessation discussed for >3mins.? @ -No Was critical care preformed (if so, how long)? @ -No Were there social determinants of health that impacted care today? How? (Homelessness, low income, unemployed, alcoholism, drug addiction, transportation, low edu. Level, literacy, decrease access to med. care, snf, rehab)? @ -No Was there de-escalation of care discussed even if they declined (Discuss DNR or withdrawal of care, Hospice)? DNR status @ -No What co-morbidities impacted this encounter? (DM, HTN, Smoking, COPD, CAD, Cancer, CVA, ARF, Chemo, Hep., AIDS, mental health diagnosis, sleep apnea, morbid obesity)? @On Coumadin history of valvular heart disease Was patient admitted / discharged? Hospital course, mention meds given and route, prescriptions, significant lab abnormalities, going to OR and other pertinent info. @ -73-year-old male with mechanical fall, head injury, injury to the bilateral hands. Traumatic workup is negative. Patient has normal CBC, normal CMP, INR is mildly elevated 3.6. Patient has some minor abrasions, tetanus is updated. He is eager for discharge without complaint. Undiagnosed new problem with uncertain prognosis? @ -No Drug Therapy requiring intensive monitoring for toxicity (Heparin, Nitro, Insulin, Cardizem)? @ -No Were any procedures done? @ -No Diagnosis/symptom? @Fall, concussion, contusion Acute, or Chronic, or Acute on Chronic? @ -[Acute Uncomplicated (without systemic symptoms) or Complicated (systemic symptoms)? @ -Default Side effects of treatment? @ -No Exacerbation, Progression, or Severe Exacerbation? @ -No Poses a threat to life or bodily function? How? (Chest pain, USA, ID, pneumonia, PE, COPD, DKA, ARF, appy, cholecystitis, CVA, Diverticulitis, Homicidal, Suicidal, threat to staff... and all critical care pts) @Low risk at this time - Lab Data Result diagrams: 09/02/24 10:06 09/02/24 10:06 Lab Results 09/02/24 09/02/24 09/02/24 Range/Units 10:06 10:06 10:06 WBC 9.4 (3.8-10.6) k/uL RBC 4.58 (4.30-5.90) m/uL Hgb 13.8 (13.0-17.5) gm/dL Hct 43.2 (39.0-53.0) % MCV 94.3 (80.0-100.0) fL MCH 30.0 (25.0-35.0) pg MCHC 31.8 (31.0-37.0) g/dL RDW 13.7 (11.5-15.5) % Plt Count 317 (150-450) k/uL MPV 6.8 Neutrophils % 66 % Lymphocytes % 20 % Monocytes % 8 % Eosinophils % 3 % Basophils % 1 % Neutrophils # 6.2 (1.3-7.7) k/uL Lymphocytes # 1.9 (1.0-4.8) k/uL Monocytes # 0.7 (0-1.0) k/uL Eosinophils # 0.3 (0-0.7) k/uL Basophils # 0.1 (0-0.2) k/uL Hypochromasia Slight PT 36.1 H (10.0-12.5) sec INR 3.6 H (<1.2) APTT 40.3 H (22.0-30.0) sec Sodium 136 L (137-145) mmol/L Potassium 5.1 (3.5-5.1) mmol/L Chloride 99 (98-107) mmol/L Carbon Dioxide 31 H (22-30) mmol/L Anion Gap 6 mmol/L BUN 32 H (9-20) mg/dL Creatinine 0.97 (0.66-1.25) mg/dL Est GFR (CKD-EPI)AfAm 89 (>60 ml/min/1.73 sqM) Est GFR (CKD-EPI)NonAf 77 (>60 ml/min/1.73 sqM) Glucose 113 H (74-99) mg/dL Calcium 8.9 (8.4-10.2) mg/dL Magnesium 2.1 (1.6-2.3) mg/dL Total Bilirubin 0.5 (0.2-1.3) mg/dL AST 40 (17-59) U/L ALT 34 (4-49) U/L Alkaline Phosphatase 113 (38-126) U/L Total Protein 6.6 (6.3-8.2) g/dL Albumin 3.7 (3.5-5.0) g/dL Disposition Clinical Impression: Fall, Concussion Disposition: HOME SELF-CARE Condition: Fair Instructions (If sedation given, give patient instructions): Fall Prevention for Older Adults (ED), Concussion (ED) Is patient prescribed a controlled substance at d/c from ED?: No Referrals: Cory Goodman MD [Primary Care Provider] - 1-2 days Time of Disposition: 12:09
--- NOTE | 2024-09-02 11:00 | XR ---
EXAMINATION TYPE: XR hand complete bilateral DATE OF EXAM: 09/02/2024 CLINICAL INDICATION: Male, 73 years old with history of fall/pain, pain TECHNIQUE: Frontal, lateral and oblique images of the bilateral hands are obtained. COMPARISON: Left hand x-ray 2019. FINDINGS: There is no acute fracture/dislocation evident in either hand. Mild to moderate narrowing and spurring to the PIP and DIP joints of the phalanges bilaterally. There is arterial vascular calci fication in the distal forearm region bilaterally noted. IMPRESSION: There is no acute fracture or dislocation in the bilateral hands. [facility], , 09/02/2024 10:58 AM
[2024-09-02 11:27] VITALS: PULSE 60
--- NOTE | 2024-09-02 11:55 | XR ---
EXAMINATION TYPE: XR chest 2V DATE OF EXAM: 09/02/2024 CLINICAL INDICATION: Male, 73 years old with history of syncope, TECHNIQUE: Frontal and lateral views of the chest are obtained. COMPARISON: Chest x-ray July 04, 2024 FINDINGS: Overlying sternal wires are redemonstrated. Metallic cardiac valve again seen. Persistent cardiomegaly with central vascular congestion. No new focal airspace opacity or pneumothorax seen deana aterally. The osseous structures are intact. IMPRESSION: Cardiomegaly with possible mild central vascular congestion. Correlate clinically. [facility], , 09/02/2024 11:53 AM
[2024-09-02] MEDS: DIPH,PERTUS(ACELL)TETVAC-LF 0.5 ML VIAL IM ONE (12:15)
[2024-09-02 12:24] VITALS: BP 118/82
== END 2024-09-02 12:38 | disposition home or self-care (01) ==
LOC: EC 09:19
DX: S06.0X0A Concussion without loss of consciousness, initial encounter (principal); Z87.891 Personal history of nicotine dependence; Z88.8 Allergy status to other drugs, medicaments and biological substances; R40.2410 Glasgow coma scale score 13-15, unspecified time; Z23 Encounter for immunization; W01.0XXA Fall on same level from slipping, tripping and stumbling without subsequent striking against object, initial encounter
CPT/HCPCS: 36415; 70450; 71046; 72125; 80053; 83735; 85025; 85610; 85730; 90471; 90715; 93005; 99285

== ENCOUNTER 2024-09-24 08:22 | Inpatient (IN) | payer MEDICARE ==
--- NOTE | 2024-09-24 09:26 | ED ---
General Adult HPI - General Chief complaint: Weakness Stated complaint: weakness Time Seen by Provider: 09/24/24 08:25 Source: patient, EMS, RN notes reviewed, old records reviewed Mode of arrival: EMS - History of Present Illness Initial comments: This is a 73-year-old male who presents to the emergency department complaining that he got up this morning was unable to hold his own weight he stated he got significantly weak and thought he was going to fall down. Patient denies any headache patient denies numbness or weakness. Patient denies chest pain difficulty breathing or shortness of breath. Patient states he has a baseline issue with breathing but it is no worse today than it has been. Patient denies any abdominal pain patient has nausea vomiting diarrhea. Patient states he just feels overall weak - Related Data Home Medications Medication Instructions Recorded Confirmed Atorvastatin [Lipitor] 40 mg PO HS 11/23/16 09/24/24 OLANZapine 10 mg PO HS 08/25/21 09/24/24 buPROPion XL [Wellbutrin XL] 300 mg PO DAILY 08/25/21 09/24/24 Amitriptyline HCl [Elavil] 25 mg PO HS 07/20/23 09/24/24 Tamsulosin [Flomax] 0.4 mg PO HS 07/20/23 09/24/24 Ipratropium-Albuterol Nebulize 3 ml INHALATION RT-QID PRN 07/04/24 09/24/24 [Duoneb 0.5 mg-3 mg/3 ml Soln] Nitroglycerin 0.3mg Mg Sl Tab 0.3 mg SL Q5M PRN 07/04/24 09/24/24 Warfarin [Coumadin] 5 mg PO HS 07/04/24 09/24/24 metFORMIN HCL [Glucophage] 500 mg PO DAILY 07/04/24 09/24/24 traMADol HCL 50 mg PO TID PRN 07/04/24 09/24/24 Budesonide/Formoterol Fumarate 2 puff INHALATION RT-BID 09/24/24 09/24/24 [Symbicort 160-4.5 Mcg Inhaler] Cetirizine HCl [Zyrtec] 10 mg PO DAILY 09/24/24 09/24/24 Multivitamins, Thera [Multivitamin 1 tab PO DAILY 09/24/24 09/24/24 (formulary)] Pregabalin [Lyrica] 25 mg PO BID 09/24/24 09/24/24 Psyllium Husk [Fiber Capsule] 0.8 gm PO DAILY 09/24/24 09/24/24 Previous Rx's Medication Instructions Recorded modafiniL [Provigil] 200 mg PO DAILY #2 tab 07/28/23 Aspirin 81 mg PO DAILY #30 tab 07/12/24 Furosemide [Lasix] 20 mg PO DAILY #30 tab 07/12/24 Metoprolol Tartrate [Lopressor] 25 mg PO BID #60 tab 07/12/24 Allergies Allergy/AdvReac Type Severity Reaction Status Date / Time midodrine AdvReac contraindicated Verified 09/24/24 11:[address] Cruz Review of Systems ROS Statement: Those systems with pertinent positive or pertinent negative responses have been documented in the HPI. ROS Other: All systems not noted in ROS Statement are negative. Past Medical History Past Medical History: Heart Failure, COPD, Diabetes Mellitus, Hypertension, Sleep Apnea/CPAP/BIPAP Additional Past Medical History / Comment(s): irregular heartbeat, varicose veins, 2 herniated disk/degenerative disks, leaky heart valve, "blood clots in the heart" History of Any Multi-Drug Resistant Organisms: None Reported Past Surgical History: Appendectomy, Bowel Resection, Cardiac Valve Replacement, Heart Catheterization, Orthopedic Surgery, Pacemaker, Tonsillectomy Additional Past Surgical History / Comment(s): left shoulder surgery, surgery for sleep apnea, deana cataracts, Aortic Valve replacement (bovine) 06/2016 Past Anesthesia/Blood Transfusion Reactions: No Reported Reaction Type of Cardiac Device: Permanent Pacemaker Device Placement Date:: 12/24/2018 Past Psychological History: Depression Smoking Status: Former smoker Past Alcohol Use History: Occasional Past Drug Use History: None Reported - Past Family History Mother Family Medical History: No Reported History General Exam - General Exam Comments Initial Comments: GENERAL: Patient is well-developed and well-nourished. Patient is nontoxic and well- hydrated and is in no acute distress. ENT: Neck is soft and supple. No significant lymphadenopathy is noted. Oropharynx is clear. Moist mucous membranes. Neck has full range of motion without conrad citing any pain. EYES: The sclera were anicteric and conjunctiva were pink and moist. Extraocular movements were intact and pupils were equal round and reactive to light. Eyelids were unremarkable. PULMONARY: Unlabored respirations. Good breath sounds bilaterally. No audible rales rhonchi or wheezing was noted. CARDIOVASCULAR: There is a regular rate and rhythm without any murmurs gallops or rubs. On the monitor patient did dip into the 30s heart rate ABDOMEN: Soft and nontender with normal bowel sounds. No palpable organomegaly was noted. There is no palpable pulsatile mass. SKIN: Skin is clear with no lesions or rashes and otherwise unremarkable. NEUROLOGIC: Patient is alert and oriented x3. Cranial nerves II through XII are grossly intact. Motor and sensory are also intact. Normal speech, volume and content. Symmetrical smile. MUSCULOSKELETAL: Normal extremities with adequate strength and full range of motion. Edema bilaterally LYMPHATICS: No significant lymphadenopathy is noted PSYCHIATRIC: Normal psychiatric evaluation. Course Vital Signs 09/24/24 09/24/24 09/24/24 08:24 08:48 09:00 Temperature 98.7 F Pulse Rate 103 H 36 L 60 Respiratory 18 20 Rate Blood Pressure 96/67 69/47 O2 Sat by Pulse 98 95 Oximetry 09/24/24 09/24/24 09/24/24 09:15 10:00 10:28 Temperature Pulse Rate 60 60 60 Respiratory 19 18 18 Rate Blood Pressure 142/100 86/47 98/53 O2 Sat by Pulse 96 95 95 Oximetry 09/24/24 09/24/24 09/24/24 10:40 11:30 12:30 Temperature Pulse Rate 66 70 67 Respiratory 20 18 18 Rate Blood Pressure 103/75 104/73 96/47 O2 Sat by Pulse 95 92 L 93 L Oximetry Medical Decision Making - Medical Decision Making EKG is interpreted by myself. EKG shows a paced rhythm at 70 bpm QRS is 201 QT interval is 437 QTc is 458. Was pt. sent in by a medical professional or institution (, PA, [facility], urgent care, hospital, or fpc...) When possible be specific @ -No Did you speak to anyone other than the patient for history (EMS, parent, family, police, friend...)? What history was obtained from this source @ -No Did you review nursing and triage notes (agree or disagree)? Why? @ -I reviewed and agree with nursing and triage notes Were old charts reviewed (outside hosp., previous admission, EMS record, old EKG, old radiological studies, urgent care reports/EKG's, fpc records)? Report findings @ -No old charts were reviewed Differential Diagnosis? @ -Differential Weakness: Hypoglycemia, shock, sepsis, hyponatremia, anemia, infection, AK, ETOH, adverse medicine reaction, overdose, stroke, this is not meant to be an all-inclusive list. EKG interpreted by me (3pts min.). @ -As above X-rays interpreted by me (1pt min.). @ -X-ray of the chest showed acute pulmonary edema CT interpreted by me (1pt min.). @ -CT of the pelvis showed no acute abnormality U/S interpreted by me (1pt. min.). @ -None done What testing was considered but not performed or refused? (CT, X-rays, U/S, labs)? Why? @ -None What meds were considered but not given or refused? Why? @ -None Did you discuss the management of the patient with other professionals (professionals i.e. , PA, [facility], lab, RT, psych nurse, social services designee, filter changer, teacher, geological technical officer, case liner)? Give summary @ -I spoke with Dr. Elizalde and he agreed to admit the patient Was smoking cessation discussed for >3mins.? @ -No Was critical care preformed (if so, how long)? @ -No Were there social determinants of health that impacted care today? How? (Homelessness, low income, unemployed, alcoholism, drug addiction, transportation, low edu. Level, literacy, decrease access to med. care, nursing home, re hab)? @ -No Was there de-escalation of care discussed even if they declined (Discuss DNR or withdrawal of care, Hospice)? DNR status @ -No What co-morbidities impacted this encounter? (DM, HTN, Smoking, COPD, CAD, Cancer, CVA, ARF, Chemo, Hep., AIDS, mental health diagnosis, sleep apnea, morbid obesity)? @ -None Was patient admitted / discharged? Hospital course, mention meds given and route, prescriptions, significant lab abnormalities, going to OR and other pertinent info. @ -Patient had acute pulmonary edema on the chest x-ray and an elevated BNP. Patient was started on Lasix. Patient also had an elevated white count and I did a full physical exam of the patient and patient had an area just below the scrotum that was open and draining fluid and very erythematous and tender. Undiagnosed new problem with uncertain prognosis? @ -No Drug Therapy requiring intensive monitoring for toxicity (Heparin, Nitro, Insulin, Cardizem)? @ -No Were any procedures done? @ -No Diagnosis/symptom? @ -Acute pulmonary edema Acute, or Chronic, or Acute on Chronic? @ -Acute Uncomplicated (without systemic symptoms) or Complicated (systemic symptoms)? @ -Comp Side effects of treatment? @ -No Exacerbation, Progression, or Severe Exacerbation? @ -No Poses a threat to life or bodily function? How? (Chest pain, USA, AK, pneumonia, PE, COPD, DKA, ARF, appy, cholecystitis, CVA, Diverticulitis, Homicidal, Suicidal, threat to staff... and all critical care pts) @ -Yes this could lead to hypoxia and endorgan dysfunction Diagnosis/symptom? @ -Perineum infection Acute, or Chronic, or Acute on Chronic? @ -Acute Uncomplicated (without systemic symptoms) or Complicated (systemic symptoms)? @ -complicated Side effects of treatment? @ -None Exacerbation, Progression, or Severe Exacerbation] @ -No Poses a threat to life or bodily function? @ -No - Lab Data Result diagrams: 09/24/24 09:07 09/24/24 09:07 Lab Results 09/24/24 09/24/24 09/24/24 Range/Units 09:07 09:07 09:07 WBC 17.02 H (4.50-10.00) 10*3/uL RBC 3.87 L (4.40-5.60) 10*6/uL Hgb 12.2 L (13.0-17.0) g/dL Hct 36.9 L (39.6-50.0) % MCV 95.3 (80.0-97.0) fL MCH 31.5 (27.0-32.0) pg MCHC 33.1 (32.0-37.0) g/dL Plt Count 216 (140-440) 10*3/uL MPV 9.8 (9.5-12.2) fL Immature Gran % (Auto) 0.5 % Neutrophils % Not Reportable Neutrophils % (Manual) 91 % Lymphocytes % Not Reportable Lymphocytes % (Manual) 5 % Monocytes % Not Reportable Monocytes % (Manual) 3 % Eosinophils % Not Reportable Eosinophils % (Manual) 1 % Basophils % Not Reportable Immature Gran # 0.09 H (0.00-0.04) 10*3/uL Neutrophils # Not Reportable Neutrophils # (Manual) 15.49 H (1.3-7.7) k/uL Lymphocytes # Not Reportable Lymphocytes # (Manual) 0.85 L (1.0-4.8) k/uL Monocytes # Not Reportable Monocytes # (Manual) 0.51 (0-1.0) k/uL Eosinophils # Not Reportable Eosinophils # (Manual) 0.17 (0-0.7) k/uL Basophils # Not Reportable Nucleated RBCs 0 (0-0) /100 WBC Manual Slide Review Performed Toxic Vacuolation Present PT 19.7 H (10.0-12.5) sec INR 1.9 H (<1.2) APTT 34.8 H (22.0-30.0) sec Sodium 139 (137-145) mmol/L Potassium 4.6 (3.5-5.1) mmol/L Chloride 100 (98-107) mmol/L Carbon Dioxide 27 (22-30) mmol/L Anion Gap 12 mmol/L BUN 51 H (9-20) mg/dL Creatinine 1.41 H (0.66-1.25) mg/dL Est GFR (CKD-EPI)AfAm 57 (>60 ml/min/1.73 sqM) Est GFR (CKD-EPI)NonAf 49 (>60 ml/min/1.73 sqM) Glucose 94 (74-99) mg/dL Plasma Lactic Acid Epi (0.7-2.0) mmol/L Calcium 8.8 (8.4-10.2) mg/dL Magnesium 2.1 (1.6-2.3) mg/dL Total Bilirubin 0.9 (0.2-1.3) mg/dL AST 38 (17-59) U/L ALT 33 (4-49) U/L Alkaline Phosphatase 91 (38-126) U/L Troponin I (0.000-0.034) ng/mL NT-Pro-B Natriuret Pep pg/mL Total Protein 6.3 (6.3-8.2) g/dL Albumin 3.5 (3.5-5.0) g/dL Urine Color Urine Appearance (Clear) Urine pH (5.0-8.0) Ur Specific [place] (1.001-1.035) Urine Protein (Negative) Urine Glucose (UA) (Negative) Urine Ketones (Negative) Urine Blood (Negative) Urine Nitrite (Negative) Urine Bilirubin (Negative) Urine Urobilinogen (<2.0) mg/dL Ur Leukocyte Esterase (Negative) Urine RBC (0-5) /hpf Urine WBC (0-5) /hpf Ur Squamous Epith Cells (0-4) /hpf Urine Mucus (None) /hpf 09/24/24 09/24/24 09/24/24 Range/Units 09:07 09:07 09:07 WBC (4.50-10.00) 10*3/uL RBC (4.40-5.60) 10*6/uL Hgb (13.0-17.0) g/dL Hct (39.6-50.0) % MCV (80.0-97.0) fL MCH (27.0-32.0) pg MCHC (32.0-37.0) g/dL Plt Count (140-440) 10*3/uL MPV (9.5-12.2) fL Immature Gran % (Auto) % Neutrophils % Neutrophils % (Manual) % Lymphocytes % Lymphocytes % (Manual) % Monocytes % Monocytes % (Manual) % Eosinophils % Eosinophils % (Manual) % Basophils % Immature Gran # (0.00-0.04) 10*3/uL Neutrophils # Neutrophils # (Manual) (1.3-7.7) k/uL Lymphocytes # Lymphocytes # (Manual) (1.0-4.8) k/uL Monocytes # Monocytes # (Manual) (0-1.0) k/uL Eosinophils # Eosinophils # (Manual) (0-0.7) k/uL Basophils # Nucleated RBCs (0-0) /100 WBC Manual Slide Review Toxic Vacuolation PT (10.0-12.5) sec INR (<1.2) APTT (22.0-30.0) sec Sodium (137-145) mmol/L Potassium (3.5-5.1) mmol/L Chloride (98-107) mmol/L Carbon Dioxide (22-30) mmol/L Anion Gap mmol/L BUN (9-20) mg/dL Creatinine (0.66-1.25) mg/dL Est GFR (CKD-EPI)AfAm (>60 ml/min/1.73 sqM) Est GFR (CKD-EPI)NonAf (>60 ml/min/1.73 sqM) Glucose (74-99) mg/dL Plasma Lactic Acid Epi 1.4 (0.7-2.0) mmol/L Calcium (8.4-10.2) mg/dL Magnesium (1.6-2.3) mg/dL Total Bilirubin (0.2-1.3) mg/dL AST (17-59) U/L ALT (4-49) U/L Alkaline Phosphatase (38-126) U/L Troponin I 0.030 (0.000-0.034) ng/mL NT-Pro-B Natriuret Pep 3520 pg/mL Total Protein (6.3-8.2) g/dL Albumin (3.5-5.0) g/dL Urine Color Urine Appearance (Clear) Urine pH (5.0-8.0) Ur Specific [place] (1.001-1.035) Urine Protein (Negative) Urine Glucose (UA) (Negative) Urine Ketones (Negative) Urine Blood (Negative) Urine Nitrite (Negative) Urine Bilirubin (Negative) Urine Urobilinogen (<2.0) mg/dL Ur Leukocyte Esterase (Negative) Urine RBC (0-5) /hpf Urine WBC (0-5) /hpf Ur Squamous Epith Cells (0-4) /hpf Urine Mucus (None) /hpf 09/24/24 Range/Units 10:28 WBC (4.50-10.00) 10*3/uL RBC (4.40-5.60) 10*6/uL Hgb (13.0-17.0) g/dL Hct (39.6-50.0) % MCV (80.0-97.0) fL MCH (27.0-32.0) pg MCHC (32.0-37.0) g/dL Plt Count (140-440) 10*3/uL MPV (9.5-12.2) fL Immature Gran % (Auto) % Neutrophils % Neutrophils % (Manual) % Lymphocytes % Lymphocytes % (Manual) % Monocytes % Monocytes % (Manual) % Eosinophils % Eosinophils % (Manual) % Basophils % Immature Gran # (0.00-0.04) 10*3/uL Neutrophils # Neutrophils # (Manual) (1.3-7.7) k/uL Lymphocytes # Lymphocytes # (Manual) (1.0-4.8) k/uL Monocytes # Monocytes # (Manual) (0-1.0) k/uL Eosinophils # Eosinophils # (Manual) (0-0.7) k/uL Basophils # Nucleated RBCs (0-0) /100 WBC Manual Slide Review Toxic Vacuolation PT (10.0-12.5) sec INR (<1.2) APTT (22.0-30.0) sec Sodium (137-145) mmol/L Potassium (3.5-5.1) mmol/L Chloride (98-107) mmol/L Carbon Dioxide (22-30) mmol/L Anion Gap mmol/L BUN (9-20) mg/dL Creatinine (0.66-1.25) mg/dL Est GFR (CKD-EPI)AfAm (>60 ml/min/1.73 sqM) Est GFR (CKD-EPI)NonAf (>60 ml/min/1.73 sqM) Glucose (74-99) mg/dL Plasma Lactic Acid Epi (0.7-2.0) mmol/L Calcium (8.4-10.2) mg/dL Magnesium (1.6-2.3) mg/dL Total Bilirubin (0.2-1.3) mg/dL AST (17-59) U/L ALT (4-49) U/L Alkaline Phosphatase (38-126) U/L Troponin I (0.000-0.034) ng/mL NT-Pro-B Natriuret Pep pg/mL Total Protein (6.3-8.2) g/dL Albumin (3.5-5.0) g/dL Urine Color Yellow Urine Appearance Clear (Clear) Urine pH 5.5 (5.0-8.0) Ur Specific [place] 1.025 (1.001-1.035) Urine Protein Negative (Negative) Urine Glucose (UA) Negative (Negative) Urine Ketones Negative (Negative) Urine Blood Negative (Negative) Urine Nitrite Negative (Negative) Urine Bilirubin 1+ H (Negative) Urine Urobilinogen 3.0 (<2.0) mg/dL Ur Leukocyte Esterase Small H (Negative) Urine RBC 3 (0-5) /hpf Urine WBC 3 (0-5) /hpf Ur Squamous Epith Cells <1 (0-4) /hpf Urine Mucus Rare H (None) /hpf Disposition Clinical Impression: Generalized weakness, Infection of wound of perineum, Pulmonary edema Disposition: ADMITTED IP TO THIS HOSP Referrals: Cory Goodman MD [Primary Care Provider] - 1-2 days Time of Disposition: 14:30
[2024-09-24 09:43] LABS: HCT 36.9 % (39.6-50.0); HGB 12.2 g/dL (13.0-17.0); MCH 31.5 pg (27.0-32.0); MCHC 33.1 g/dL (32.0-37.0); MCV 95.3 fL (80.0-97.0); Mean Platelet Volume 9.8 fL (9.5-12.2); Platelet Count 216 10*3/uL (140-440); RBC 3.87 10*6/uL (4.40-5.60); RDW 15.5 % (11.5-14.5); WBC 17.02 10*3/uL (4.50-10.00)
[2024-09-24 09:46] LABS: INR 1.9 (<1.2); Partial Thromboplastin Time 34.8 sec (22.0-30.0); Prothrombin Time 19.7 sec (10.0-12.5)
--- NOTE | 2024-09-24 10:21 | XR ---
EXAMINATION TYPE: XR chest 2V DATE OF EXAM: 09/24/2024 10:14 AM COMPARISON: Chest radiographs from 09/02/2024 TECHNIQUE: XR chest 2V Frontal and lateral views of the chest. CLINICAL INDICATION:Male, 73 years old with history of Weakness; FINDINGS: Lungs/Pleura: There is no evidence of pleural effusion, focal consolidation, or pneumothorax. Pulmonary vascularity: Pulmonary vascular congestion. Heart/mediastinum: Cardiomediastinal silhouette is enlarged and stable. Atherosclerotic calcificatio ns are seen in the aorta. Metallic cardiac valve again seen. Single-lead cardiac conduction device ov erlying the left hemithorax with lead projecting over the right ventricle. Musculoskeletal: Multiple level degenerative disc disease changes seen throughout the spine. Midline sternotomy wires are noted and stable. Left shoulder postsurgical changes. IMPRESSION: Cardiomegaly and pulmonary vascular congestion. Correlate with BNP for congestive heart failure. [facility], , 09/24/2024 10:19 AM
[2024-09-24 10:28] LABS: ALT 33 U/L (4-49); AST 38 U/L (17-59); African American GFR (CKD) 57 (>60 ml/min/1.73 sqM); Albumin 3.5 g/dL (3.5-5.0); Alkaline Phosphatase 91 U/L (38-126); Anion Gap 12 mmol/L; Blood Urea Nitrogen 51 mg/dL (9-20); Calcium 8.8 mg/dL (8.4-10.2); Carbon Dioxide 27 mmol/L (22-30); Chloride 100 mmol/L (98-107); Glucose 94 mg/dL (74-99); Magnesium 2.1 mg/dL (1.6-2.3); Non-African American GFR(CKD) 49 (>60 ml/min/1.73 sqM); Potassium 4.6 mmol/L (3.5-5.1); Sodium 139 mmol/L (137-145); Total Bilirubin 0.9 mg/dL (0.2-1.3); Total Protein 6.3 g/dL (6.3-8.2)
[2024-09-24 10:42] LABS: Appearance,Urine Clear (Clear); Bilirubin,Urine 1+ (Negative); Blood,Urine Negative (Negative); Color,Urine Yellow; Glucose,Urine (UA) Negative (Negative); Ketones,Urine Negative (Negative); Leukocyte Esterase,Urine Small (Negative); Mucus,Urine Rare /hpf; Nitrite,Urine Negative (Negative); PH, Urine 5.5 (5.0-8.0); Protein,Urine Negative (Negative); RBC,Urine 3 /hpf (0-5); Specific Gravity,Urine 1.025 (1.001-1.035); Squamous Epithelial Cell,Urine <1 /hpf (0-4); WBC,Urine 3 /hpf (0-5)
[2024-09-24 10:49] LABS: Eosinophils # (M) 0.17 k/uL (0-0.7); Lymphocytes # (M) 0.85 k/uL (1.0-4.8); Monocytes # (M) 0.51 k/uL (0-1.0); Neutrophils # (M) 15.49 k/uL (1.3-7.7); Neutrophils % (M) 91 %; Nucleated Red Blood Cells 0 /100 WBC (0-0); Total Cells Counted 100; Toxic Vacuolation Present
[2024-09-24] MEDS: FUROSEMIDE 10 MG/ML 4 ML VIAL IV STA (12:06)
[2024-09-24] MEDS: PIPERACILLIN-TAZOBACTAM 3.375 GM in SODIUM CHLORIDE 0.9% 100 ML IVPB STA (12:51)
--- NOTE | 2024-09-24 13:48 | CT ---
CT pelvis with contrast History: perineal abscess. COMPARISON: CT abdomen and pelvis dated 09/18/2021 TECHNIQUE: Multiple axial images were obtained through the pelvis following IV contrast material FINDINGS: Visualized bowel loops are normal in caliber and dilatation or obstruction. There is no pelvic mass, free fluid, abscess or adenopathy. The osseous structures are intact. The caliber of the distal abdominal aorta is normal. There is no free fluid in the pelvis. IMPRESSION: No significant abnormality seen. [facility], Workstation: [id number] 09/24/2024 1:46 PM
[2024-09-24] MEDS: traMADol 50 MG TAB PO STA (14:55)
[2024-09-24] MEDS: SODIUM CHLORIDE 0.9% 1,000 ML IV ONE (16:51)
[2024-09-24] MEDS ORDERED: DEXTROSE 50% SYRINGE 50 ML IVP PRN ×2 (19:11)
--- NOTE | 2024-09-24 19:29 | P.HPIM ---
History of Present Illness H&P Date: 09/24/24 Chief Complaint: Generalized weakness Patient is a 73-year-old male with a known history of chronic CHF with systolic dysfunction ejection fraction 30 to 35% with severe RV enlargement and bioprosthetic valve replacement,, history of CABG, status post pacemaker placement persistent atrial fibrillation on anticoagulation with Coumadin, depression, diabetes type 2 nonsignificant, BPH and depression. Patient was recently discharged from the hospital on 07/12/2024. Patient was admitted to hospital with acute on chronic CHF and metabolic encephalopathy. Patient presents to ER with complaints of generalized weakness and was going to fall down. Patient states that he got up this morning unable to hold his weight. Patient was also delirious and was talking to himself. Denied any focal weakness. Denied any numbness or tingling of the extremities. No complaints of chest pain or worsening shortness of breath. No nausea vomiting abdominal pain or diarrhea. Denied any recent illnesses. Patient just feels weak all over. EKG showed electronic ventricular pacemaker rhythm. On admission blood pressure 96/67 pulse 103 respiration 18 pulse ox 98% on room air. Laboratory data showed WBC 17.0 hemoglobin 12.2 and platelets 216 sodium 139 potassium 4.6 chloride 100 bicarb is 27 BUN 51 and creatinine 1.41 Troponin 0.030 and proBNP 3520. Urinalysis is negative for infection. CT abdomen pelvis showed no significant abnormality. Review of Systems Complete review of systems could not be obtained from the patient except as per HPI ROS unobtainable: due to mental status Past Medical History Past Medical History: Heart Failure, COPD, Diabetes Mellitus, Hypertension, Sleep Apnea/CPAP/BIPAP Additional Past Medical History / Comment(s): irregular heartbeat, varicose veins, 2 herniated disk/degenerative disks, leaky heart valve, "blood clots in the heart" History of Any Multi-Drug Resistant Organisms: None Reported Past Surgical History: Appendectomy, Bowel Resection, Cardiac Valve Replacement, Heart Catheterization, Orthopedic Surgery, Pacemaker, Tonsillectomy Additional Past Surgical History / Comment(s): left shoulder surgery, surgery for sleep apnea, deana cataracts, Aortic Valve replacement (bovine) 06/2016 Past Anesthesia/Blood Transfusion Reactions: No Reported Reaction Type of Cardiac Device: Permanent Pacemaker Device Placement Date:: 12/24/2018 Past Psychological History: Depression Smoking Status: Former smoker Past Alcohol Use History: Occasional Past Drug Use History: None Reported - Past Family History Mother Family Medical History: No Reported History Medications and Allergies Home Medications Medication Instructions Recorded Confirmed Type Atorvastatin [Lipitor] 40 mg PO HS 11/23/16 09/24/24 History OLANZapine 10 mg PO HS 08/25/21 09/24/24 History buPROPion XL [Wellbutrin XL] 300 mg PO DAILY 08/25/21 09/24/24 History Amitriptyline HCl [Elavil] 25 mg PO HS 07/20/23 09/24/24 History Tamsulosin [Flomax] 0.4 mg PO HS 07/20/23 09/24/24 History modafiniL [Provigil] 200 mg PO DAILY #2 tab 07/28/23 09/24/24 Rx Ipratropium-Albuterol Nebulize 3 ml INHALATION RT-QID PRN 07/04/24 09/24/24 History [Duoneb 0.5 mg-3 mg/3 ml Soln] Nitroglycerin 0.3mg Mg Sl Tab 0.3 mg SL Q5M PRN 07/04/24 09/24/24 History Warfarin [Coumadin] 5 mg PO HS 07/04/24 09/24/24 History metFORMIN HCL [Glucophage] 500 mg PO DAILY 07/04/24 09/24/24 History traMADol HCL 50 mg PO TID PRN 07/04/24 09/24/24 History Aspirin 81 mg PO DAILY #30 tab 07/12/24 09/24/24 Rx Furosemide [Lasix] 20 mg PO DAILY #30 tab 07/12/24 09/24/24 Rx Metoprolol Tartrate [Lopressor] 25 mg PO BID #60 tab 07/12/24 09/24/24 Rx Budesonide/Formoterol Fumarate 2 puff INHALATION RT-BID 09/24/24 09/24/24 History [Symbicort 160-4.5 Mcg Inhaler] Cetirizine HCl [Zyrtec] 10 mg PO DAILY 09/24/24 09/24/24 History Multivitamins, Thera [Multivitamin 1 tab PO DAILY 09/24/24 09/24/24 History (formulary)] Pregabalin [Lyrica] 25 mg PO BID 09/24/24 09/24/24 History Psyllium Husk [Fiber Capsule] 0.8 gm PO DAILY 09/24/24 09/24/24 History Allergies Allergy/AdvReac Type Severity Reaction Status Date / Time midodrine AdvReac contraindicated Verified 09/24/24 11:[address] Cruz Physical Exam Vitals: Vital Signs Temp Pulse Resp BP Pulse Ox 09/24/24 18:05 65 20 90/56 96 09/24/24 16:42 64 20 103/77 96 09/24/24 15:30 59 L 20 110/80 95 09/24/24 14:00 67 20 94/70 93 L 09/24/24 13:00 61 18 95/65 94 L 09/24/24 12:30 67 18 96/47 93 L 09/24/24 11:30 70 18 104/73 92 L 09/24/24 10:40 66 20 103/75 95 09/24/24 10:28 60 18 98/53 95 09/24/24 10:00 60 18 86/47 95 09/24/24 09:15 60 19 142/100 96 09/24/24 09:00 60 20 69/47 95 09/24/24 08:48 36 L 09/24/24 08:24 98.7 F 103 H 18 96/67 98 Intake and Output 09/24/24 09/24/24 09/24/24 06:59 14:59 22:59 Other: Weight 171.912 kg PHYSICAL EXAMINATION: Patient is lying in the bed, no acute distress, awake alert but delirious. Morbidly obese.. HEENT: Normocephalic. Neck is supple. Pupils reactive. Nostrils clear. Oral cavity is moist. Neck reveals no JVD, carotid bruits, or thyromegaly. CHEST EXAMINATION: Trachea is central. Symmetrical expansion. Bibasilar diminis hed air entry otherwise lung penn clear to auscultation and percussion. CARDIAC: Normal S1, S2 with no gallops. Systolic murmur. ABDOMEN: Soft. Bowel sounds normal. No organomegaly. No abdominal bruits. Extremities: reveal no edema. No clubbing or cyanosis Neurologically awake, alert, oriented x 1-2. Able to move all extremities. No gross focal deficits noted Skin: No rash or skin lesions. Psychiatric: Coperative. Could not be assessed completely Musculoskeletal: No joint swelling or deformity. Results CBC & Chem 7: 09/24/24 09:07 09/24/24 09:07 Labs: Abnormal Lab Results - Last 24 Hours (Table) 09/24/24 09/24/24 09/24/24 Range/Units 09:07 09:07 09:07 WBC 17.02 H (4.50-10.00) 10*3/uL RBC 3.87 L (4.40-5.60) 10*6/uL Hgb 12.2 L (13.0-17.0) g/dL Hct 36.9 L (39.6-50.0) % Immature Gran # 0.09 H (0.00-0.04) 10*3/uL Neutrophils # (Manual) 15.49 H (1.3-7.7) k/uL Lymphocytes # (Manual) 0.85 L (1.0-4.8) k/uL PT 19.7 H (10.0-12.5) sec INR 1.9 H (<1.2) APTT 34.8 H (22.0-30.0) sec BUN 51 H (9-20) mg/dL Creatinine 1.41 H (0.66-1.25) mg/dL Urine Bilirubin (Negative) Ur Leukocyte Esterase (Negative) Urine Mucus (None) /hpf 09/24/24 Range/Units 10:28 WBC (4.50-10.00) 10*3/uL RBC (4.40-5.60) 10*6/uL Hgb (13.0-17.0) g/dL Hct (39.6-50.0) % Immature Gran # (0.00-0.04) 10*3/uL Neutrophils # (Manual) (1.3-7.7) k/uL Lymphocytes # (Manual) (1.0-4.8) k/uL PT (10.0-12.5) sec INR (<1.2) APTT (22.0-30.0) sec BUN (9-20) mg/dL Creatinine (0.66-1.25) mg/dL Urine Bilirubin 1+ H (Negative) Ur Leukocyte Esterase Small H (Negative) Urine Mucus Rare H (None) /hpf Thrombosis Risk Factor Assmnt - DVT/VTE Prophylaxis DVT/VTE Prophylaxis: Pharmacologic Prophylaxis ordered Assessment and Plan Assessment: Perineal wound infection Sepsis secondary to above Acute metabolic encephalopathy secondary infection and LYNDSEY Acute kidney injury. Possible ATN cannot be excluded. Mild acute on chronic CHF with systolic function ejection fraction 35% Persistent atrial fibrillation on anticoagulation with Coumadin. History of pacemaker placement History of bioprosthetic valve replacement Coronary artery disease with history of CABG Ischemic cardiomyopathy Recurrent falls Hypertension Diabetes type 2 [id number] BPH Depression Morbid obesity with a BMI 57.6. Coumadin monitoring Plan: Patient will be continued on telemonitoring. Patient was given dose of IV Lasix in the ER. Patient is currently on room air. Continue gentle IV hydration due to LYNDSEY. Continue with antibiotics Zosyn and daptomycin was added as per ID recommendations. Follow-up wound culture report. Continue with home medications. Insulin sliding scale and pain management. PT OT will be consulted. Continue to follow closely. Prognosis is guarded. Time with Patient: Greater than 30
[2024-09-24] MEDS: SYMBICORT 160-4.5 MCG INHALER INHALATION SCH (19:42)
[2024-09-24] MEDS ORDERED: ATORVASTATIN 40 MG TAB PO SCH (21:00)
[2024-09-24 21:08] LABS: Glucose,Whole Blood 114 mg/dL (70-110)
[2024-09-24] MEDS: METOPROLOL TARTRATE 25 MG TAB PO SCH (21:11)
[2024-09-24] MEDS: TAMSULOSIN 0.4 MG CAP.ER.24H PO SCH (21:11)
[2024-09-24] MEDS: WARFARIN 3 MG TAB PO ONE (21:11)
[2024-09-24] MEDS: OLANZapine 10 MG TAB PO SCH (21:11)
[2024-09-24] MEDS: AMITRIPTYLINE HCL 25 MG TAB PO SCH (21:11)
[2024-09-24] MEDS: PIPERACILLIN-TAZOBACTAM 3.375 GM in SODIUM CHLORIDE 0.9% 100 ML IVPB SCH (21:13)
[2024-09-24] MEDS: INSULIN LISPRO (HumaLOG) 100 UNIT/ML 10 mL VL SQ SCH (21:18)
--- NOTE | 2024-09-24 22:11 | P.CONS ---
History of Present Illness - Reason for Consult Consult date: 09/24/24 Perineal cellulitis Requesting physician: Dileep Jc - Chief Complaint Weakness x few days - History of Present Illness Patient is a 73-year-old male with a past medical history of again for diabetes mellitus hypertension COPD heart failure presenting to the hospital for evaluation of significant weakness patient mention when he woke up this morning he was unable to hold his own weight and was about to fall down patient denies high-grade fever any chills no headache chest pain no shortness of breath some shortness of breath no cough or sputum production no abdominal pain has been complaining of some drainage from the posterior scrotal/perineal area that has been going on for the last few days. Denies any history of any trauma or fall did have mild dull aching pain without any radiation denies having any constipation or diarrhea and no urinary symptoms on presentation to the hospital patient was afebrile and no fever have been called subsequently patient was not tachycardic mildly hypotensive but not hypoxic patient did have white count of 1 7.02 with a left shift BUN and creatinine has been mildly elevated liver isms are normal urine was mildly positive he did have CT of the pelvis did not show any acute abnormality patient was started on Zosyn infectious disease was consulted for further management of antibiotic therapy Review of Systems Positive point and negatives has been mentioned in the HPI, complete review of systems was performed and all other systems are negative Past Medical History Past Medical History: Heart Failure, COPD, Diabetes Mellitus, Hypertension, Sleep Apnea/CPAP/BIPAP Additional Past Medical History / Comment(s): irregular heartbeat, varicose veins, 2 herniated disk/degenerative disks, leaky heart valve, "blood clots in the heart" History of Any Multi-Drug Resistant Organisms: None Reported Past Surgical History: Appendectomy, Bowel Resection, Cardiac Valve Replacement, Heart Catheterization, Orthopedic Surgery, Pacemaker, Tonsillectomy Additional Past Surgical History / Comment(s): left shoulder surgery, surgery for sleep apnea, deana cataracts, Aortic Valve replacement (bovine) 06/2016 Past Anesthesia/Blood Transfusion Reactions: No Reported Reaction Type of Cardiac Device: Permanent Pacemaker Device Placement Date:: 12/24/2018 Past Psychological History: Depression Smoking Status: Former smoker Past Alcohol Use History: Occasional Past Drug Use History: None Reported - Past Family History Mother Family Medical History: No Reported History Medications and Allergies Home Medications Medication Instructions Recorded Confirmed Type Atorvastatin [Lipitor] 40 mg PO HS 11/23/16 09/24/24 History OLANZapine 10 mg PO HS 08/25/21 09/24/24 History buPROPion XL [Wellbutrin XL] 300 mg PO DAILY 08/25/21 09/24/24 History Amitriptyline HCl [Elavil] 25 mg PO HS 07/20/23 09/24/24 History Tamsulosin [Flomax] 0.4 mg PO HS 07/20/23 09/24/24 History modafiniL [Provigil] 200 mg PO DAILY #2 tab 07/28/23 09/24/24 Rx Ipratropium-Albuterol Nebulize 3 ml INHALATION RT-QID PRN 07/04/24 09/24/24 History [Duoneb 0.5 mg-3 mg/3 ml Soln] Nitroglycerin 0.3mg Mg Sl Tab 0.3 mg SL Q5M PRN 07/04/24 09/24/24 History Warfarin [Coumadin] 5 mg PO HS 07/04/24 09/24/24 History metFORMIN HCL [Glucophage] 500 mg PO DAILY 07/04/24 09/24/24 History traMADol HCL 50 mg PO TID PRN 07/04/24 09/24/24 History Aspirin 81 mg PO DAILY #30 tab 07/12/24 09/24/24 Rx Furosemide [Lasix] 20 mg PO DAILY #30 tab 07/12/24 09/24/24 Rx Metoprolol Tartrate [Lopressor] 25 mg PO BID #60 tab 07/12/24 09/24/24 Rx Budesonide/Formoterol Fumarate 2 puff INHALATION RT-BID 09/24/24 09/24/24 History [Symbicort 160-4.5 Mcg Inhaler] Cetirizine HCl [Zyrtec] 10 mg PO DAILY 09/24/24 09/24/24 History Multivitamins, Thera [Multivitamin 1 tab PO DAILY 09/24/24 09/24/24 History (formulary)] Pregabalin [Lyrica] 25 mg PO BID 09/24/24 09/24/24 History Psyllium Husk [Fiber Capsule] 0.8 gm PO DAILY 09/24/24 09/24/24 History Allergies Allergy/AdvReac Type Severity Reaction Status Date / Time midodrine AdvReac contraindicated Verified 09/24/24 11:[address] Cruz Physical Exam Vitals: Vital Signs Temp Pulse Resp BP Pulse Ox 09/24/24 14:00 67 20 94/70 93 L 09/24/24 13:00 61 18 95/65 94 L 09/24/24 12:30 67 18 96/47 93 L 09/24/24 11:30 70 18 104/73 92 L 09/24/24 10:40 66 20 103/75 95 09/24/24 10:28 60 18 98/53 95 09/24/24 10:00 60 18 86/47 95 09/24/24 09:15 60 19 142/100 96 09/24/24 09:00 60 20 69/47 95 09/24/24 08:48 36 L 09/24/24 08:24 98.7 F 103 H 18 96/67 98 Intake and Output 09/24/24 09/24/24 09/24/24 06:59 14:59 22:59 Other: Weight 171.912 kg GENERAL DESCRIPTION: Elderly male lying in bed, no distress. No tachypnea or accessory muscle of respiration use. HEENT: Shows Pallor , no scleral icterus. Oral mucous membrane is dry. No pharyngeal erythema or thrush NECK: Trachea central, no thyromegaly. LUNGS: Unlabored breathing. Clear to auscultation anteriorly. No wheeze or crackle. HEART: S1, S2, regular rate and rhythm. No loud murmur ABDOMEN: Soft, no tenderness , : Patient did have erythema to the posterior scrotal area with the wound which was probed and culture obtained mostly bloodstained drainage EXTREMITIES: No edema of feet. SKIN: No rash, no masses palpable. NEUROLOGICAL: The patient is awake, alert, oriented x3, mood and affect normal. Results CBC & Chem 7: 09/24/24 09:07 09/24/24 09:07 Labs: Abnormal Lab Results - Last 24 Hours (Table) 09/24/24 09/24/24 09/24/24 Range/Units 09:07 09:07 09:07 WBC 17.02 H (4.50-10.00) 10*3/uL RBC 3.87 L (4.40-5.60) 10*6/uL Hgb 12.2 L (13.0-17.0) g/dL Hct 36.9 L (39.6-50.0) % Immature Gran # 0.09 H (0.00-0.04) 10*3/uL Neutrophils # (Manual) 15.49 H (1.3-7.7) k/uL Lymphocytes # (Manual) 0.85 L (1.0-4.8) k/uL PT 19.7 H (10.0-12.5) sec INR 1.9 H (<1.2) APTT 34.8 H (22.0-30.0) sec BUN 51 H (9-20) mg/dL Creatinine 1.41 H (0.66-1.25) mg/dL Urine Bilirubin (Negative) Ur Leukocyte Esterase (Negative) Urine Mucus (None) /hpf 09/24/24 Range/Units 10:28 WBC (4.50-10.00) 10*3/uL RBC (4.40-5.60) 10*6/uL Hgb (13.0-17.0) g/dL Hct (39.6-50.0) % Immature Gran # (0.00-0.04) 10*3/uL Neutrophils # (Manual) (1.3-7.7) k/uL Lymphocytes # (Manual) (1.0-4.8) k/uL PT (10.0-12.5) sec INR (<1.2) APTT (22.0-30.0) sec BUN (9-20) mg/dL Creatinine (0.66-1.25) mg/dL Urine Bilirubin 1+ H (Negative) Ur Leukocyte Esterase Small H (Negative) Urine Mucus Rare H (None) /hpf Assessment and Plan (1) Perianal cellulitis Current Visit: Yes Status: Acute Code(s): K61.0 - ANAL ABSCESS SNOMED Code(s): 322862550 (2) Leukocytosis Current Visit: Yes Status: Acute Code(s): D72.829 - ELEVATED WHITE BLOOD CELL COUNT, UNSPECIFIED SNOMED Code(s): 040161231 (3) Sepsis Current Visit: No Status: Acute Code(s): A41.9 - SEPSIS, UNSPECIFIED ORGANISM SNOMED Code(s): 74160808 Plan: 1patient to the hospital with sepsis in this patient who did have elevated white count tachycardia hypotension meeting criteria for SIRS source with likely perineal cellulitis and likely from gram-positive skin johnie however gram- negative infection not entirely excluded 2-patient with elevated creatinine high risk for nephrotoxicity from certain antibiotics such as vancomycin 3-local culture obtained to guide further antibiotic therapy 4-patient has been started on Zosyn we will add daptomycin to cover for the gram-positive while waiting for the culture to finalize We will follow on clinical condition and cultures to further adjust medication if needed Thank you for this consultation we will follow the patient along with you Dictation was produced using [employer] dictation software. please excuse any grammatical, word or spelling errors. Time with Patient: Greater than 30
[2024-09-25 05:29] LABS: Glucose,Whole Blood 118 mg/dL (70-110)
[2024-09-25 06:02] LABS: INR 1.9 (<1.2); Prothrombin Time 19.6 sec (10.0-12.5)
[2024-09-25 08:21] LABS: BUN/Creat Ratio 37.73 Ratio (12.00-20.00); Blood Urea Nitrogen 41.5 mg/dL (9.0-27.0); Calcium 8.8 mg/dL (8.7-10.3); Chloride 103 mmol/L (96-109); Glucose 125 mg/dL (70-110); Potassium 4.5 mmol/L (3.5-5.5); Sodium 139 mmol/L (135-145)
[2024-09-25 08:31] LABS: HCT 39.7 % (39.6-50.0); HGB 12.6 g/dL (13.0-17.0); MCH 30.8 pg (27.0-32.0); MCHC 31.7 g/dL (32.0-37.0); MCV 97.1 FL (80.0-97.0); Mean Platelet Volume 10.2 FL (9.5-12.2); NRBC Per 100 WBC 0 X 10*3/uL (0.00-0.01); Platelet Count 212 X 10*3/uL (140-440); RBC 4.09 X 10*6/uL (4.40-5.60); RDW 15.5 % (11.5-14.5); WBC 11.05 X 10*3/uL (4.50-10.00)
[2024-09-25 09:12] LABS: Basophils # (A) 0.06 X 10*3/uL (0.00-0.10); Basophils % (A) 0.5 %; Eosinophils # (A) 0.21 X 10*3/uL (0.04-0.35); Eosinophils % (A) 1.9 %; Lymphocytes # (A) 1.33 X 10*3/uL (0.90-5.00); Monocytes # (A) 0.85 X 10*3/uL (0.20-1.00); Monocytes % (A) 7.7 %; Neutrophils # (A) 8.56 X 10*3/uL (1.80-7.70); Neutrophils % (A) 77.5 %
[2024-09-25] MEDS: IPRATROPIUM-ALBUTEROL 3 ML NEB INHALATION PRN (11:50)
[2024-09-25] MEDS: FAMOTIDINE 20 MG/2 ML VIAL IV SCH (11:51)
[2024-09-25] MEDS: buPROPion XL 300 MG TAB.ER.24H PO SCH (11:51)
[2024-09-25] MEDS: ASPIRIN 81 MG PO SCH (11:51)
[2024-09-25] MEDS: NYSTATIN 100,000 UNIT/GM POWD 15 GM TOPICAL SCH (11:52)
[2024-09-25] MEDS: FUROSEMIDE 20 MG TAB PO SCH (11:52)
[2024-09-25] MEDS: HYDROcodone/APAP 5-325MG 1 EACH TAB PO STA (12:00)
[2024-09-25 12:04] LABS: Glucose,Whole Blood 165 mg/dL (70-110)
--- NOTE | 2024-09-25 12:58 | P.PN ---
Subjective Progress Note Date: 09/25/24 Principal diagnosis: Reason for follow-up is perineal cellulitis Patient is a 73-year-old male with a past medical history of again for diabetes mellitus hypertension COPD heart failure presenting to the hospital for evaluation of significant weakness noticed to have perineal cellulitis CT negative for abscess prompting this consultation. On today's evaluation that is 09/25/2024,the patient denies any fever or any chills, patient is breathing comfortably on 2 L nasal cannula oxygen , the patient denies chest pain shortness of breath and no significant cough, patient denies abdominal pain, no nausea vomiting or diarrhea. The patient will count is noted 11.05, creatinine is 1.1 cultures currently pending Objective - Vital Signs Vital signs: Vital Signs Temp 97.6 F 09/25/24 07:00 Pulse 76 09/25/24 11:58 Resp 16 09/25/24 07:00 BP 136/69 09/25/24 07:00 Pulse Ox 100 09/25/24 07:42 FiO2 Intake & Output 09/24/24 09/25/24 09/25/24 18:59 06:59 18:59 Weight 171.912 kg Other: Voiding Method Diaper Diaper External Catheter External Catheter # Voids 3 1 # Bowel Movements 1 - Exam GENERAL DESCRIPTION: An elderly male lying in bed in no distress RESPIRATORY SYSTEM: Unlabored breathing , decreased breath sounds at bases HEART: S1 S2 regular rate and rhythm , ABDOMEN: Soft , no tenderness EXTREMITIES: No edema feet - Labs CBC & Chem 7: 09/25/24 05:16 09/25/24 05:16 Labs: Abnormal Lab Results - Last 24 Hours (Table) 09/24/24 09/24/24 09/25/24 Range/Units 09:07 21:07 05:16 WBC 11.05 H (4.50-10.00) X 10*3/uL RBC 4.09 L (4.40-5.60) X 10*6/uL Hgb 12.6 L (13.0-17.0) g/dL MCV 97.1 H (80.0-97.0) FL MCHC 31.7 L (32.0-37.0) g/dL RDW 15.5 H (11.5-14.5) % Neutrophils # 8.56 H (1.80-7.70) X 10*3/uL PT (10.0-12.5) sec INR (<1.2) BUN (9.0-27.0) mg/dL BUN/Creatinine Ratio (12.00-20.00) Ratio Glucose (70-110) mg/dL POC Glucose (mg/dL) 114 H (70-110) mg/dL Hemoglobin A1c 6.3 H (<=6.0) % 09/25/24 09/25/24 09/25/24 Range/Units 05:16 05:16 05:28 WBC (4.50-10.00) X 10*3/uL RBC (4.40-5.60) X 10*6/uL Hgb (13.0-17.0) g/dL MCV (80.0-97.0) FL MCHC (32.0-37.0) g/dL RDW (11.5-14.5) % Neutrophils # (1.80-7.70) X 10*3/uL PT 19.6 H (10.0-12.5) sec INR 1.9 H (<1.2) BUN 41.5 H (9.0-27.0) mg/dL BUN/Creatinine Ratio 37.73 H (12.00-20.00) Ratio Glucose 125 H (70-110) mg/dL POC Glucose (mg/dL) 118 H (70-110) mg/dL Hemoglobin A1c (<=6.0) % 09/25/24 Range/Units 11:59 WBC (4.50-10.00) X 10*3/uL RBC (4.40-5.60) X 10*6/uL Hgb (13.0-17.0) g/dL MCV (80.0-97.0) FL MCHC (32.0-37.0) g/dL RDW (11.5-14.5) % Neutrophils # (1.80-7.70) X 10*3/uL PT (10.0-12.5) sec INR (<1.2) BUN (9.0-27.0) mg/dL BUN/Creatinine Ratio (12.00-20.00) Ratio Glucose (70-110) mg/dL POC Glucose (mg/dL) 165 H (70-110) mg/dL Hemoglobin A1c (<=6.0) % Assessment and Plan (1) Perianal cellulitis Current Visit: Yes Status: Acute Code(s): K61.0 - ANAL ABSCESS SNOMED Code(s): 349218396 (2) Leukocytosis Current Visit: Yes Status: Acute Code(s): D72.829 - ELEVATED WHITE BLOOD CELL COUNT, UNSPECIFIED SNOMED Code(s): 211090022 (3) Sepsis Current Visit: No Status: Acute Code(s): A41.9 - SEPSIS, UNSPECIFIED ORGANISM SNOMED Code(s): 00992387 Plan: 1patient to the hospital with sepsis in this patient who did have elevated white count tachycardia hypotension meeting criteria for SIRS source with likely perineal cellulitis and likely from gram-positive skin johnie however gram- negative infection not entirely excluded 2-local cultures currently pending the patient white count has shown improvement 3patient will be treated with Zosyn and daptomycin while waiting for the culture to finalize Dictation was produced using [employer] dictation software. please excuse any grammatical, word or spelling errors. Time with Patient: Less than 30
--- NOTE | 2024-09-25 13:43 | P.PN ---
Subjective Patient is a 73-year-old male with a known history of chronic CHF with systolic dysfunction ejection fraction 30 to 35% with severe RV enlargement and bioprosthetic valve replacement,, history of CABG, status post pacemaker placement persistent atrial fibrillation on anticoagulation with Coumadin, depression, diabetes type 2 nonsignificant, BPH and depression. Patient was recently discharged from the hospital on 07/12/2024. Patient was admitted to hospital with acute on chronic CHF and metabolic encephalopathy. Patient presents to ER with complaints of generalized weakness and was going to fall down. Patient states that he got up this morning unable to hold his weight. Patient was also delirious and was talking to himself. Denied any focal weakness. Denied any numbness or tingling of the extremities. No complaints of chest pain or worsening shortness of breath. No nausea vomiting abdominal pain or diarrhea. Denied any recent illnesses. Patient just feels weak all over. EKG showed electronic ventricular pacemaker rhythm. On admission blood pressure 96/67 pulse 103 respiration 18 pulse ox 98% on room air. Laboratory data showed WBC 17.0 hemoglobin 12.2 and platelets 216 sodium 139 potassium 4.6 chloride 100 bicarb is 27 BUN 51 and creatinine 1.41 Troponin 0.030 and proBNP 3520. Urinalysis is negative for infection. CT abdomen pelvis showed no significant abnormality. 09/25 Patient was admitted for perianal cellulitis and sepsis, has been evaluated by ID team and currently is placed on broad-spectrum antibiotics with Zosyn and daptomycin Patient kind of poor historian he does not give clear history however he is able to answer questions and follow commands. Possible some elements of encephalopathy. His acute kidney injury is improved with creatinine down to 1.4 down to 1.1 with close to baseline. INR 1.9 while he is on warfarin given his history of atrial fibrillation Also is status post bioprosthetic valve replacement He is mainly complaining from pain in his right hip area. He is hemodynamically stable and afebrile INR 1.9, WBC coming down 17,000 down to 11,000. Also creatinine improving as above. Active Medications Generic Name Dose Route Start Last Admin Trade Name Freq PRN Reason Stop Dose Admin Acetaminophen 650 mg 09/24/24 21:21 Acetaminophen Tab 325 Mg Tab PO Q6HR PRN Fever and/ or Pain Albuterol/Ipratropium 3 ml 09/24/24 19:10 09/25/24 11:50 Ipratropium-Albuterol 3 Ml Neb INHALATION 3 ml RT-QID PRN Administration Shortness Of Breath Amitriptyline HCl 25 mg 09/24/24 21:00 09/24/24 21:11 Amitriptyline Hcl 25 Mg Tab PO 25 mg HS ADELINA Administration Aspirin 81 mg 09/25/24 09:00 09/25/24 11:51 Aspirin 81 Mg PO Not Given DAILY ADELINA Atorvastatin Calcium 40 mg 09/24/24 21:00 Atorvastatin 40 Mg Tab PO HS ADELINA Budesonide/Formoterol Fumarate 2 puff 09/24/24 20:00 09/25/24 07:38 Symbicort 160-4.5 Mcg Inhaler INHALATION 2 puff RT-BID ADELINA Administration Bupropion HCl 300 mg 09/25/24 09:00 09/25/24 11:51 Bupropion Xl 300 Mg Tab.Er.24h PO Not Given DAILY ADELINA Dextrose/Water 25 ml 09/24/24 19:11 Dextrose 50% Syringe 50 Ml IVP PER PROTOCOL PRN Hypoglycemia Protocol Dextrose/Water 50 ml 09/24/24 19:11 Dextrose 50% Syringe 50 Ml IVP PER PROTOCOL PRN Hypoglycemia Protocol Famotidine 20 mg 09/25/24 09:00 09/25/24 11:51 Famotidine 20 Mg/2 Ml Vial IV Not Given Q12HR ADELINA Furosemide 20 mg 09/25/24 09:00 09/25/24 11:52 Furosemide 20 Mg Tab PO Not Given DAILY ADELINA Piperacillin Sod/Tazobactam 100 mls @ 25 mls/hr 09/24/24 22:00 09/25/24 06:06 Sod 3.375 gm/ Sodium Chloride IVPB 25 mls/hr Q8H [facility] Administration Protocol Daptomycin 450 mg/ Sodium 50 mls @ 100 mls/hr 09/24/24 17:00 09/24/24 17:59 Chloride IVPB 100 mls/hr Q24HR@1700 [facility] Administration Protocol Insulin Human Lispro 0 unit 09/24/24 21:00 09/25/24 12:18 Insulin Lispro (Humalog) 100 Unit/Ml 10 Ml Vl SQ Not Given ACHS [facility] Protocol Metoprolol Tartrate 25 mg 09/24/24 21:00 09/25/24 11:52 Metoprolol Tartrate 25 Mg Tab PO Not Given BID [facility] Miscellaneous Information 1 each 09/24/24 19:31 Warfarin Per Pharmacy MISCELLANE DIRECTED PRN Per Protocol Modafinil 200 mg 09/25/24 09:00 09/25/24 11:52 Modafinil 200 Mg Tab PO Not Given DAILY [facility] Nystatin 1 applic 09/25/24 09:00 09/25/24 11:52 Nystatin 100,000 Unit/Gm Powd 15 Gm TOPICAL Not Given BID [facility] Protocol Olanzapine 10 mg 09/24/24 21:00 09/24/24 21:11 Olanzapine 10 Mg Tab PO 10 mg HS ADELINA Administration Petrolatum 1 applic 09/24/24 21:19 Zinc Oxide Paste (Z-Guard) 1 Applic TOPICAL Q2HR PRN [facility] Protocol Tamsulosin HCl 0.4 mg 09/24/24 21:00 09/24/24 21:11 Tamsulosin 0.4 Mg Cap.Er.24h PO 0.4 mg HS [facility] Administration Warfarin Sodium 5 mg 09/25/24 21:00 Warfarin 5 Mg Tab PO HS [facility] Protocol Objective - Vital Signs Vital signs: Vital Signs Temp 97.6 F 09/25/24 07:00 Pulse 76 09/25/24 11:58 Resp 16 09/25/24 07:00 BP 136/69 09/25/24 07:00 Pulse Ox 100 09/25/24 07:42 FiO2 Intake & Output 09/24/24 09/25/24 09/25/24 18:59 06:59 18:59 Weight 171.912 kg Other: Voiding Method Diaper Diaper External Catheter External Catheter # Voids 3 1 # Bowel Movements 1 - Exam -Patient GENERAL: The patient is alert and oriented x3, not in any acute distress. Well developed, well nourished. Morbidly obese, generally weak HEENT: Pupils are round and equally reacting to light. EOMI. No scleral icterus. No conjunctival pallor. Normocephalic, atraumatic. No pharyngeal erythema. No thyromegaly. CARDIOVASCULAR: S1 and S2 present perianal cellulitis. No murmurs, rubs, or gallops. PULMONARY: Chest is clear to auscultation, no wheezing , no crackles. ABDOMEN: Soft, nontender, nondistended, normoactive bowel sounds. No palpable organomegaly. MUSCULOSKELETAL: No joint swelling or deformity. EXTREMITIES: No cyanosis, clubbing, or pedal edema. NEUROLOGICAL: Gross neurological examination did not reveal any focal deficits. -SKIN: No rashes. no petechiae. Perianal cellulitis - Labs CBC & Chem 7: 09/25/24 05:16 09/25/24 05:16 Labs: Abnormal Lab Results - Last 24 Hours (Table) 09/24/24 09/24/24 09/25/24 Range/Units 09:07 21:07 05:16 WBC 11.05 H (4.50-10.00) X 10*3/uL RBC 4.09 L (4.40-5.60) X 10*6/uL Hgb 12.6 L (13.0-17.0) g/dL MCV 97.1 H (80.0-97.0) FL MCHC 31.7 L (32.0-37.0) g/dL RDW 15.5 H (11.5-14.5) % Neutrophils # 8.56 H (1.80-7.70) X 10*3/uL PT (10.0-12.5) sec INR (<1.2) BUN (9.0-27.0) mg/dL BUN/Creatinine Ratio (12.00-20.00) Ratio Glucose (70-110) mg/dL POC Glucose (mg/dL) 114 H (70-110) mg/dL Hemoglobin A1c 6.3 H (<=6.0) % 09/25/24 09/25/24 09/25/24 Range/Units 05:16 05:16 05:28 WBC (4.50-10.00) X 10*3/uL RBC (4.40-5.60) X 10*6/uL Hgb (13.0-17.0) g/dL MCV (80.0-97.0) FL MCHC (32.0-37.0) g/dL RDW (11.5-14.5) % Neutrophils # (1.80-7.70) X 10*3/uL PT 19.6 H (10.0-12.5) sec INR 1.9 H (<1.2) BUN 41.5 H (9.0-27.0) mg/dL BUN/Creatinine Ratio 37.73 H (12.00-20.00) Ratio Glucose 125 H (70-110) mg/dL POC Glucose (mg/dL) 118 H (70-110) mg/dL Hemoglobin A1c (<=6.0) % 09/25/24 Range/Units 11:59 WBC (4.50-10.00) X 10*3/uL RBC (4.40-5.60) X 10*6/uL Hgb (13.0-17.0) g/dL MCV (80.0-97.0) FL MCHC (32.0-37.0) g/dL RDW (11.5-14.5) % Neutrophils # (1.80-7.70) X 10*3/uL PT (10.0-12.5) sec INR (<1.2) BUN (9.0-27.0) mg/dL BUN/Creatinine Ratio (12.00-20.00) Ratio Glucose (70-110) mg/dL POC Glucose (mg/dL) 165 H (70-110) mg/dL Hemoglobin A1c (<=6.0) % Assessment and Plan Assessment: Perianal cellulitis Sepsis secondary to above Metabolic encephalopathy Acute kidney injury on CKD stage III, improved Paroxysmal atrial fibrillation on Coumadin Coronary artery disease status post CABG History of bioprosthetic valve replacement Recurrent falls Hypertension Hyperlipidemia Diabetes mellitus Plan: Continue with antibiotic as per ID team, continue Zosyn and add the daptomycin Infectious is consult Continue with warfarin and monitor INR Continue with aspirin Resume home medication Monitor electrolytes and vitals. Labs and medication were reviewed.. Continue same treatment. Continue with symptomatic treatment. Resume home medication. Monitor labs and vitals. DVT and GI prophylaxis. Further recommendations as per clinical course of the patient DVT prophylaxis: On warfarin GI Prophylaxis: Pepcid PT/OT: Pending Prognosis is guarded
[2024-09-25 16:56] LABS: Glucose,Whole Blood 165 mg/dL (70-110)
[2024-09-25] MEDS: HALOPERIDOL LACTATE 5 MG/ML 1 ML VIAL IM PRN (21:20)
[2024-09-25 22:45] LABS: Glucose,Whole Blood 133 mg/dL (70-110)
[2024-09-25] MEDS: WARFARIN 5 MG TAB PO SCH (22:45)
[2024-09-26 05:29] LABS: Prothrombin Time 20.3 sec (10.0-12.5)
[2024-09-26 06:33] LABS: Glucose,Whole Blood 138 mg/dL (70-110)
--- NOTE | 2024-09-26 11:25 | P.PN ---
Subjective Patient is a 73-year-old male with a known history of chronic CHF with systolic dysfunction ejection fraction 30 to 35% with severe RV enlargement and bioprosthetic valve replacement,, history of CABG, status post pacemaker placement persistent atrial fibrillation on anticoagulation with Coumadin, depression, diabetes type 2 nonsignificant, BPH and depression. Patient was recently discharged from the hospital on 07/12/2024. Patient was admitted to hospital with acute on chronic CHF and metabolic encephalopathy. Patient presents to ER with complaints of generalized weakness and was going to fall down. Patient states that he got up this morning unable to hold his weight. Patient was also delirious and was talking to himself. Denied any focal weakness. Denied any numbness or tingling of the extremities. No complaints of chest pain or worsening shortness of breath. No nausea vomiting abdominal pain or diarrhea. Denied any recent illnesses. Patient just feels weak all over. EKG showed electronic ventricular pacemaker rhythm. On admission blood pressure 96/67 pulse 103 respiration 18 pulse ox 98% on room air. Laboratory data showed WBC 17.0 hemoglobin 12.2 and platelets 216 sodium 139 potassium 4.6 chloride 100 bicarb is 27 BUN 51 and creatinine 1.41 Troponin 0.030 and proBNP 3520. Urinalysis is negative for infection. CT abdomen pelvis showed no significant abnormality. 09/25 Patient was admitted for perianal cellulitis and sepsis, has been evaluated by ID team and currently is placed on broad-spectrum antibiotics with Zosyn and daptomycin Patient kind of poor historian he does not give clear history however he is able to answer questions and follow commands. Possible some elements of encephalopathy. His acute kidney injury is improved with creatinine down to 1.4 down to 1.1 with close to baseline. INR 1.9 while he is on warfarin given his history of atrial fibrillation Also is status post bioprosthetic valve replacement He is mainly complaining from pain in his right hip area. He is hemodynamically stable and afebrile INR 1.9, WBC coming down 17,000 down to 11,000. Also creatinine improving as above. 09/26 Patient pain is improving No other new complaints no chest pain or dyspnea He looks little bit delirious related to his infection but that is improved with reorientation. He told the nurse he sees spiders but when I went to the room he denies seeing any such things He is calm. Hemodynamically stable and afebrile INR therapeutic today 2.0 Wound culture and blood culture are still pending Remains on warfarin, Zosyn and daptomycin Possible discharge in 24 to 48 hours Active Medications Generic Name Dose Route Start Last Admin Trade Name Freq PRN Reason Stop Dose Admin Acetaminophen 650 mg 09/24/24 21:21 Acetaminophen Tab 325 Mg Tab PO Q6HR PRN Fever and/ or Pain Albuterol/Ipratropium 3 ml 09/24/24 19:10 09/25/24 11:50 Ipratropium-Albuterol 3 Ml Neb INHALATION 3 ml RT-QID PRN Administration Shortness Of Breath Amitriptyline HCl 25 mg 09/24/24 21:00 09/25/24 22:45 Amitriptyline Hcl 25 Mg Tab PO 25 mg HS ADELINA Administration Aspirin 81 mg 09/25/24 09:00 09/26/24 08:54 Aspirin 81 Mg PO 81 mg DAILY ADELINA Administration Atorvastatin Calcium 40 mg 09/24/24 21:00 Atorvastatin 40 Mg Tab PO HS ADELINA Budesonide/Formoterol Fumarate 2 puff 09/24/24 20:00 09/26/24 08:06 Symbicort 160-4.5 Mcg Inhaler INHALATION 2 puff RT-BID ADELINA Administration Bupropion HCl 300 mg 09/25/24 09:00 09/26/24 08:54 Bupropion Xl 300 Mg Tab.Er.24h PO 300 mg DAILY ADELINA Administration Dextrose/Water 25 ml 09/24/24 19:11 Dextrose 50% Syringe 50 Ml IVP PER PROTOCOL PRN Hypoglycemia Protocol Dextrose/Water 50 ml 09/24/24 19:11 Dextrose 50% Syringe 50 Ml IVP PER PROTOCOL PRN Hypoglycemia Protocol Famotidine 20 mg 09/25/24 09:00 09/26/24 08:54 Famotidine 20 Mg/2 Ml Vial IV 20 mg Q12HR ADELINA Administration Furosemide 20 mg 09/25/24 09:00 09/26/24 08:54 Furosemide 20 Mg Tab PO 20 mg DAILY ADELINA Administration Haloperidol Lactate 4 mg 09/25/24 21:09 09/25/24 21:20 Haloperidol Lactate 5 Mg/Ml 1 Ml Vial IM 4 mg Q6HR PRN Administration Agitation or Acute Psychosis Piperacillin Sod/Tazobactam 100 mls @ 25 mls/hr 09/24/24 22:00 09/26/24 06:28 Sod 3.375 gm/ Sodium Chloride IVPB 25 mls/hr Q8H [facility] Administration Protocol Daptomycin 450 mg/ Sodium 50 mls @ 100 mls/hr 09/25/24 20:00 09/25/24 22:46 Chloride IVPB 100 mls/hr Q24HR@2000 [facility] Administration Protocol Insulin Human Lispro 0 unit 09/24/24 21:00 09/26/24 08:52 Insulin Lispro (Humalog) 100 Unit/Ml 10 Ml Vl SQ Not Given ACHS [facility] Protocol Metoprolol Tartrate 25 mg 09/24/24 21:00 09/26/24 08:54 Metoprolol Tartrate 25 Mg Tab PO 25 mg BID ADELINA Administration Miscellaneous Information 1 each 09/24/24 19:31 Warfarin Per Pharmacy MISCELLANE DIRECTED PRN Per Protocol Modafinil 200 mg 09/25/24 09:00 09/26/24 08:58 Modafinil 200 Mg Tab PO 200 mg DAILY [facility] Administration Nystatin 1 applic 09/25/24 09:00 09/26/24 08:55 Nystatin 100,000 Unit/Gm Powd 15 Gm TOPICAL 1 applic BID [facility] Administration Protocol Olanzapine 10 mg 09/24/24 21:00 09/25/24 22:48 Olanzapine 10 Mg Tab PO Not Given HS [facility] Petrolatum 1 applic 09/24/24 21:19 Zinc Oxide Paste (Z-Guard) 1 Applic TOPICAL Q2HR PRN Wound Healing Protocol Tamsulosin HCl 0.4 mg 09/24/24 21:00 09/25/24 22:48 Tamsulosin 0.4 Mg Cap.Er.24h PO Not Given HS [facility] Warfarin Sodium 5 mg 09/25/24 21:00 09/25/24 22:45 Warfarin 5 Mg Tab PO 5 mg HS [facility] Administration Protocol Objective - Vital Signs Vital signs: Vital Signs Temp 98.1 F 09/26/24 07:30 Pulse 65 09/26/24 07:30 Resp 24 09/26/24 07:30 BP 118/72 09/26/24 07:30 Pulse Ox 97 09/26/24 08:09 FiO2 Intake & Output 09/25/24 09/26/24 09/26/24 18:59 06:59 18:59 Other: Voiding Method Diaper Diaper Diaper External Catheter External Catheter External Catheter # Voids 1 2 1 # Bowel Movements 1 1 1 - Exam -Patient GENERAL: The patient is alert and oriented x3, not in any acute distress. Well developed, well nourished. Morbidly obese, generally weak HEENT: Pupils are round and equally reacting to light. EOMI. No scleral icterus. No conjunctival pallor. Normocephalic, atraumatic. No pharyngeal erythema. No thyromegaly. CARDIOVASCULAR: S1 and S2 present perianal cellulitis. No murmurs, rubs, or gallops. PULMONARY: Chest is clear to auscultation, no wheezing , no crackles. ABDOMEN: Soft, nontender, nondistended, normoactive bowel sounds. No palpable organomegaly. MUSCULOSKELETAL: No joint swelling or deformity. EXTREMITIES: No cyanosis, clubbing, or pedal edema. NEUROLOGICAL: Gross neurological examination did not reveal any focal deficits. -SKIN: No rashes. no petechiae. Perianal cellulitis - Labs CBC & Chem 7: 09/25/24 05:16 09/25/24 05:16 Labs: Abnormal Lab Results - Last 24 Hours (Table) 09/25/24 09/25/24 09/25/24 Range/Units 11:59 16:54 22:44 PT (10.0-12.5) sec INR (<1.2) POC Glucose (mg/dL) 165 H 165 H 133 H (70-110) mg/dL 09/26/24 09/26/24 Range/Units 04:45 06:32 PT 20.3 H (10.0-12.5) sec INR 2.0 H (<1.2) POC Glucose (mg/dL) 138 H (70-110) mg/dL Microbiology - Last 24 Hours (Table) 09/24/24 16:40 Wound Culture - Preliminary Rectum 09/24/24 12:38 Blood Culture - Preliminary Blood Assessment and Plan Assessment: Perianal cellulitis Sepsis secondary to above Metabolic encephalopathy Acute kidney injury on CKD stage III, improved Paroxysmal atrial fibrillation on Coumadin Coronary artery disease status post CABG History of bioprosthetic valve replacement Recurrent falls Hypertension Hyperlipidemia Diabetes mellitus Plan: Continue with antibiotic as per ID team, continue Zosyn and add the daptomycin Infectious is consult Continue with warfarin and monitor INR Continue with aspirin Resume home medication Monitor electrolytes and vitals. Labs and medication were reviewed.. Continue same treatment. Continue with symptomatic treatment. Resume home medication. Monitor labs and vitals. DVT and GI prophylaxis. Further recommendations as per clinical course of the patient DVT prophylaxis: On warfarin GI Prophylaxis: Pepcid PT/OT: Pending Prognosis is guarded
[2024-09-26 12:53] LABS: Glucose,Whole Blood 120 mg/dL (70-110)
--- NOTE | 2024-09-26 14:22 | P.PN ---
Subjective Progress Note Date: 09/26/24 Principal diagnosis: Reason for follow-up is perineal cellulitis Patient is a 73-year-old male with a past medical history of again for diabetes mellitus hypertension COPD heart failure presenting to the hospital for evaluation of significant weakness noticed to have perineal cellulitis CT negative for abscess prompting this consultation. On today's evaluation that is 09/26/2024,the patient remains to be afebrile, patient is on 2 L nasal cannula supplemental oxygen and denies any shortness of breath no chest pain or cough.Patient denies having any nausea or vomiting, no abdominal pain and no diarrhea. Patient did have a INR of 2.0 cultures currently pending Objective - Vital Signs Vital signs: Vital Signs Temp 98.1 F 09/26/24 07:30 Pulse 65 09/26/24 07:30 Resp 24 09/26/24 07:30 BP 118/72 09/26/24 07:30 Pulse Ox 97 09/26/24 08:09 FiO2 Intake & Output 09/25/24 09/26/24 09/26/24 18:59 06:59 18:59 Other: Voiding Method Diaper Diaper Diaper External Catheter External Catheter External Catheter # Voids 1 2 1 # Bowel Movements 1 1 1 - Exam GENERAL DESCRIPTION: An elderly male lying in bed in no distress RESPIRATORY SYSTEM: Unlabored breathing , decreased breath sounds at bases HEART: S1 S2 regular rate and rhythm , ABDOMEN: Soft , no tenderness EXTREMITIES: No edema feet - Labs CBC & Chem 7: 09/25/24 05:16 09/25/24 05:16 Labs: Abnormal Lab Results - Last 24 Hours (Table) 09/25/24 09/25/24 09/25/24 Range/Units 11:59 16:54 22:44 PT (10.0-12.5) sec INR (<1.2) POC Glucose (mg/dL) 165 H 165 H 133 H (70-110) mg/dL 09/26/24 09/26/24 Range/Units 04:45 06:32 PT 20.3 H (10.0-12.5) sec INR 2.0 H (<1.2) POC Glucose (mg/dL) 138 H (70-110) mg/dL Microbiology - Last 24 Hours (Table) 09/24/24 16:40 Wound Culture - Preliminary Rectum 09/24/24 12:38 Blood Culture - Preliminary Blood Assessment and Plan (1) Perianal cellulitis Current Visit: Yes Status: Acute Code(s): K61.0 - ANAL ABSCESS SNOMED Code(s): 883260739 (2) Leukocytosis Current Visit: Yes Status: Acute Code(s): D72.829 - ELEVATED WHITE BLOOD CELL COUNT, UNSPECIFIED SNOMED Code(s): 584227276 (3) Sepsis Current Visit: No Status: Acute Code(s): A41.9 - SEPSIS, UNSPECIFIED ORGANISM SNOMED Code(s): 41675645 Plan: 1patient to the hospital with sepsis in this patient who did have elevated white count tachycardia hypotension meeting criteria for SIRS source with likely perineal cellulitis and likely from gram-positive skin johnie however gram-negat sandy infection not entirely excluded 2-local cultures currently pending the patient white count has shown improvement 3patient is afebrile patient will be treated with daptomycin and Zosyn while waiting for the culture to finalize to determine discharge antibiotics Dictation was produced using [employer] dictation software. please excuse any grammatical, word or spelling errors. Time with Patient: Less than 30
[2024-09-26 17:00] LABS: Glucose,Whole Blood 117 mg/dL (70-110)
[2024-09-26 19:47] LABS: Glucose,Whole Blood 137 mg/dL (70-110)
[2024-09-27] MEDS: PIPERACILLIN-TAZOBACTAM 3.375 GM in SODIUM CHLORIDE 0.9% 100 ML IVPB SCH (01:49)
[2024-09-27 05:37] LABS: INR 2.6 (<1.2); Prothrombin Time 26.4 sec (10.0-12.5)
[2024-09-27 05:56] LABS: Glucose,Whole Blood 120 mg/dL (70-110)
[2024-09-27 07:56] LABS: HCT 37.8 % (39.6-50.0); HGB 11.9 g/dL (13.0-17.0); MCH 30.4 pg (27.0-32.0); MCHC 31.5 g/dL (32.0-37.0); MCV 96.7 FL (80.0-97.0); Mean Platelet Volume 9.9 FL (9.5-12.2); NRBC Per 100 WBC 0 X 10*3/uL (0.00-0.01); Platelet Count 221 X 10*3/uL (140-440); RBC 3.91 X 10*6/uL (4.40-5.60); RDW 15.2 % (11.5-14.5); WBC 11.01 X 10*3/uL (4.50-10.00)
[2024-09-27 08:22] LABS: BUN/Creat Ratio 32.29 Ratio (12.00-20.00); Blood Urea Nitrogen 22.6 mg/dL (9.0-27.0); Calcium 8.5 mg/dL (8.7-10.3); Carbon Dioxide 25.3 mmol/L (21.6-31.8); Chloride 105 mmol/L (96-109); Glucose 111 mg/dL (70-110); Potassium 3.9 mmol/L (3.5-5.5); Sodium 141 mmol/L (135-145)
[2024-09-27 08:30] LABS: Basophils # (A) 0.06 X 10*3/uL (0.00-0.10); Basophils % (A) 0.5 %; Eosinophils # (A) 0.26 X 10*3/uL (0.04-0.35); Eosinophils % (A) 2.4 %; Lymphocytes # (A) 1.27 X 10*3/uL (0.90-5.00); Lymphocytes % (A) 11.5 %; Monocytes # (A) 1.99 X 10*3/uL (0.20-1.00); Monocytes % (A) 18.1 %; Neutrophils # (A) 7.37 X 10*3/uL (1.80-7.70)
[2024-09-27 12:09] LABS: Glucose,Whole Blood 209 mg/dL (70-110)
--- NOTE | 2024-09-27 15:45 | P.PN ---
Subjective Progress Note Date: 09/27/24 Principal diagnosis: Reason for follow-up is perineal cellulitis Patient is a 73-year-old male with a past medical history of again for diabetes mellitus hypertension COPD heart failure presenting to the hospital for evaluation of significant weakness noticed to have perineal cellulitis CT negative for abscess prompting this consultation. On today's evaluation that is 09/27/2024, the patient continues to be afebrile, the patient is on room air and breathing comfortably, the Pt denies having any chest pain or cough, the patient denies having any abdominal pain no vomiting or any diarrhea has been reported by the nursing staff. Patient white count is 11.01, creatinine is 0.7 culture have been negative so far Objective - Vital Signs Vital signs: Vital Signs Temp 97.8 F 09/27/24 07:41 Pulse 60 09/27/24 07:41 Resp 16 09/27/24 07:43 BP 132/79 09/27/24 07:41 Pulse Ox 97 09/27/24 07:41 FiO2 Intake & Output 09/26/24 09/27/24 09/27/24 18:59 06:59 18:59 Intake Total 700 118 240 Balance 700 118 240 Intake: Intake, IV Titration 100 Amount Piperacillin-Tazobactam 3 100 .375 gm In Sodium Chloride 0.9% 100 ml @ 25 mls/hr IVPB Q8H [facility] Rx#: [id number] Oral 600 118 240 Other: Voiding Method Diaper Diaper Incontinent External Catheter # Voids 1 2 # Bowel Movements 2 - Exam GENERAL DESCRIPTION: An elderly male lying in bed in no distress RESPIRATORY SYSTEM: Unlabored breathing , decreased breath sounds at bases HEART: S1 S2 regular rate and rhythm , ABDOMEN: Soft , no tenderness : Patient did have significant improvement with the perianal swelling and redness and no drainage was noticed EXTREMITIES: No edema feet - Labs CBC & Chem 7: 09/27/24 04:56 09/27/24 04:56 Labs: Abnormal Lab Results - Last 24 Hours (Table) 09/26/24 09/26/24 09/26/24 Range/Units 12:52 16:59 19:42 WBC (4.50-10.00) X 10*3/uL RBC (4.40-5.60) X 10*6/uL Hgb (13.0-17.0) g/dL Hct (39.6-50.0) % MCHC (32.0-37.0) g/dL RDW (11.5-14.5) % Immature Gran # (0.00-0.04) X 10*3/uL Monocytes # (0.20-1.00) X 10*3/uL PT (10.0-12.5) sec INR (<1.2) BUN/Creatinine Ratio (12.00-20.00) Ratio Glucose (70-110) mg/dL POC Glucose (mg/dL) 120 H 117 H 137 H (70-110) mg/dL Calcium (8.7-10.3) mg/dL 09/27/24 09/27/24 09/27/24 Range/Units 04:56 04:56 04:56 WBC 11.01 H (4.50-10.00) X 10*3/uL RBC 3.91 L (4.40-5.60) X 10*6/uL Hgb 11.9 L (13.0-17.0) g/dL Hct 37.8 L (39.6-50.0) % MCHC 31.5 L (32.0-37.0) g/dL RDW 15.2 H (11.5-14.5) % Immature Gran # 0.06 H (0.00-0.04) X 10*3/uL Monocytes # 1.99 H (0.20-1.00) X 10*3/uL PT 26.4 H (10.0-12.5) sec INR 2.6 H (<1.2) BUN/Creatinine Ratio 32.29 H (12.00-20.00) Ratio Glucose 111 H (70-110) mg/dL POC Glucose (mg/dL) (70-110) mg/dL Calcium 8.5 L (8.7-10.3) mg/dL 09/27/24 Range/Units 05:54 WBC (4.50-10.00) X 10*3/uL RBC (4.40-5.60) X 10*6/uL Hgb (13.0-17.0) g/dL Hct (39.6-50.0) % MCHC (32.0-37.0) g/dL RDW (11.5-14.5) % Immature Gran # (0.00-0.04) X 10*3/uL Monocytes # (0.20-1.00) X 10*3/uL PT (10.0-12.5) sec INR (<1.2) BUN/Creatinine Ratio (12.00-20.00) Ratio Glucose (70-110) mg/dL POC Glucose (mg/dL) 120 H (70-110) mg/dL Calcium (8.7-10.3) mg/dL Microbiology - Last 24 Hours (Table) 09/24/24 16:40 Gram Stain - Final Rectum Wound Culture - Final 09/24/24 12:38 Blood Culture - Preliminary Blood Assessment and Plan (1) Perianal cellulitis Current Visit: Yes Status: Acute Code(s): K61.0 - ANAL ABSCESS SNOMED Code(s): 715374045 (2) Leukocytosis Current Visit: Yes Status: Acute Code(s): D72.829 - ELEVATED WHITE BLOOD CELL COUNT, UNSPECIFIED SNOMED Code(s): 317762637 (3) Sepsis Current Visit: No Status: Acute Code(s): A41.9 - SEPSIS, UNSPECIFIED ORGANISM SNOMED Code(s): 52299659 Plan: 1patient to the hospital with sepsis in this patient who did have elevated white count tachycardia hypotension meeting criteria for SIRS source with likely perineal cellulitis and likely from gram-positive skin johnie however gram- negative infection not entirely excluded 2-local cultures so far negative for any resistant pathogen and the patient has shown significant improvement to the perineal cellulitis, patient has also lost his IV 3I will go ahead and discontinue his Zosyn and daptomycin will give a short course of oral Augmentin Dictation was produced using [employer] dictation software. please excuse any grammatical, word or spelling errors. Time with Patient: Less than 30
[2024-09-27 17:18] LABS: Glucose,Whole Blood 229 mg/dL (70-110)
[2024-09-27 19:31] LABS: Glucose,Whole Blood 126 mg/dL (70-110)
[2024-09-27] MEDS: AMOXIC-POT CLAV 875-125MG 1 EACH TAB PO SCH (20:04)
[2024-09-27] MEDS: WARFARIN 1 MG TAB PO ONE (20:04)
[2024-09-27] MEDS: ZINC OXIDE PASTE (Z-GUARD) 1 APPLIC TOPICAL PRN (20:05)
--- NOTE | 2024-09-27 21:19 | P.PN ---
Subjective Patient is a 73-year-old male with a known history of chronic CHF with systolic dysfunction ejection fraction 30 to 35% with severe RV enlargement and bioprosthetic valve replacement,, history of CABG, status post pacemaker placement persistent atrial fibrillation on anticoagulation with Coumadin, depression, diabetes type 2 nonsignificant, BPH and depression. Patient was recently discharged from the hospital on 07/12/2024. Patient was admitted to hospital with acute on chronic CHF and metabolic encephalopathy. Patient presents to ER with complaints of generalized weakness and was going to fall down. Patient states that he got up this morning unable to hold his weight. Patient was also delirious and was talking to himself. Denied any focal weakness. Denied any numbness or tingling of the extremities. No complaints of chest pain or worsening shortness of breath. No nausea vomiting abdominal pain or diarrhea. Denied any recent illnesses. Patient just feels weak all over. EKG showed electronic ventricular pacemaker rhythm. On admission blood pressure 96/67 pulse 103 respiration 18 pulse ox 98% on room air. Laboratory data showed WBC 17.0 hemoglobin 12.2 and platelets 216 sodium 139 potassium 4.6 chloride 100 bicarb is 27 BUN 51 and creatinine 1.41 Troponin 0.030 and proBNP 3520. Urinalysis is negative for infection. CT abdomen pelvis showed no significant abnormality. 09/25 Patient was admitted for perianal cellulitis and sepsis, has been evaluated by ID team and currently is placed on broad-spectrum antibiotics with Zosyn and daptomycin Patient kind of poor historian he does not give clear history however he is able to answer questions and follow commands. Possible some elements of encephalopathy. His acute kidney injury is improved with creatinine down to 1.4 down to 1.1 with close to baseline. INR 1.9 while he is on warfarin given his history of atrial fibrillation Also is status post bioprosthetic valve replacement He is mainly complaining from pain in his right hip area. He is hemodynamically stable and afebrile INR 1.9, WBC coming down 17,000 down to 11,000. Also creatinine improving as above. 09/26 Patient pain is improving No other new complaints no chest pain or dyspnea He looks little bit delirious related to his infection but that is improved with reorientation. He told the nurse he sees spiders but when I went to the room he denies seeing any such things He is calm. Hemodynamically stable and afebrile INR therapeutic today 2.0 Wound culture and blood culture are still pending Remains on warfarin, Zosyn and daptomycin Possible discharge in 24 to 48 hours 09/27 Patient perineal cellulitis improving significantly and antibiotic was switched to Augmentin Feels fine and he agrees for discharge whenever placement is ready for him. He will require rehab however he had co-pay of around $3000 per staff, insurance case manager on the case He denies any other new complaint INR therapeutic while he is on warfarin Patient medically stable pending placement Objective - Vital Signs Vital signs: Vital Signs Temp 97.8 F 09/27/24 07:41 Pulse 60 09/27/24 07:41 Resp 16 09/27/24 07:43 BP 132/79 09/27/24 07:41 Pulse Ox 97 09/27/24 07:41 FiO2 Intake & Output 09/26/24 09/27/24 09/27/24 18:59 06:59 18:59 Intake Total 700 118 240 Balance 700 118 240 Intake: Intake, IV Titration 100 Amount Piperacillin-Tazobactam 3 100 .375 gm In Sodium Chloride 0.9% 100 ml @ 25 mls/hr IVPB Q[facility] Rx#: [id number] Oral 600 118 240 Other: Voiding Method Diaper Diaper Incontinent External Catheter # Voids 1 2 # Bowel Movements 2 - Exam -Patient GENERAL: The patient is alert and oriented x3, not in any acute distress. Well developed, well nourished. Morbidly obese, generally weak HEENT: Pupils are round and equally reacting to light. EOMI. No scleral icterus. No conjunctival pallor. Normocephalic, atraumatic. No pharyngeal erythema. No thyromegaly. CARDIOVASCULAR: S1 and S2 present perianal cellulitis. No murmurs, rubs, or gallops. PULMONARY: Chest is clear to auscultation, no wheezing , no crackles. ABDOMEN: Soft, nontender, nondistended, normoactive bowel sounds. No palpable organomegaly. MUSCULOSKELETAL: No joint swelling or deformity. EXTREMITIES: No cyanosis, clubbing, or pedal edema. NEUROLOGICAL: Gross neurological examination did not reveal any focal deficits. -SKIN: No rashes. no petechiae. Perianal cellulitis - Labs CBC & Chem 7: 09/27/24 04:56 09/27/24 04:56 Labs: Abnormal Lab Results - Last 24 Hours (Table) 09/26/24 09/26/24 09/26/24 Range/Units 12:52 16:59 19:42 WBC (4.50-10.00) X 10*3/uL RBC (4.40-5.60) X 10*6/uL Hgb (13.0-17.0) g/dL Hct (39.6-50.0) % MCHC (32.0-37.0) g/dL RDW (11.5-14.5) % Immature Gran # (0.00-0.04) X 10*3/uL Monocytes # (0.20-1.00) X 10*3/uL PT (10.0-12.5) sec INR (<1.2) BUN/Creatinine Ratio (12.00-20.00) Ratio Glucose (70-110) mg/dL POC Glucose (mg/dL) 120 H 117 H 137 H (70-110) mg/dL Calcium (8.7-10.3) mg/dL 09/27/24 09/27/24 09/27/24 Range/Units 04:56 04:56 04:56 WBC 11.01 H (4.50-10.00) X 10*3/uL RBC 3.91 L (4.40-5.60) X 10*6/uL Hgb 11.9 L (13.0-17.0) g/dL Hct 37.8 L (39.6-50.0) % MCHC 31.5 L (32.0-37.0) g/dL RDW 15.2 H (11.5-14.5) % Immature Gran # 0.06 H (0.00-0.04) X 10*3/uL Monocytes # 1.99 H (0.20-1.00) X 10*3/uL PT 26.4 H (10.0-12.5) sec INR 2.6 H (<1.2) BUN/Creatinine Ratio 32.29 H (12.00-20.00) Ratio Glucose 111 H (70-110) mg/dL POC Glucose (mg/dL) (70-110) mg/dL Calcium 8.5 L (8.7-10.3) mg/dL 09/27/24 Range/Units 05:54 WBC (4.50-10.00) X 10*3/uL RBC (4.40-5.60) X 10*6/uL Hgb (13.0-17.0) g/dL Hct (39.6-50.0) % MCHC (32.0-37.0) g/dL RDW (11.5-14.5) % Immature Gran # (0.00-0.04) X 10*3/uL Monocytes # (0.20-1.00) X 10*3/uL PT (10.0-12.5) sec INR (<1.2) BUN/Creatinine Ratio (12.00-20.00) Ratio Glucose (70-110) mg/dL POC Glucose (mg/dL) 120 H (70-110) mg/dL Calcium (8.7-10.3) mg/dL Microbiology - Last 24 Hours (Table) 09/24/24 16:40 Gram Stain - Final Rectum Wound Culture - Final 09/24/24 12:38 Blood Culture - Preliminary Blood Assessment and Plan Assessment: Perianal cellulitis Sepsis secondary to above Metabolic encephalopathy Acute kidney injury on CKD stage III, improved Paroxysmal atrial fibrillation on Coumadin Coronary artery disease status post CABG History of bioprosthetic valve replacement Recurrent falls Hypertension Hyperlipidemia Diabetes mellitus Plan: Continue with antibiotic as per ID team, continue Augmentin Infectious is consult Continue with warfarin and monitor INR Continue with aspirin Resume home medication Monitor electrolytes and vitals. Labs and medication were reviewed.. Continue same treatment. Continue with symptomatic treatment. Resume home medication. Monitor labs and vitals. DVT and GI prophylaxis. Further recommendations as per clinical course of the patient DVT prophylaxis: On warfarin GI Prophylaxis: Pepcid PT/OT: Pending Prognosis is guarded Patient medically stable pending placement
[2024-09-28 05:07] LABS: INR 2.7 (<1.2); Prothrombin Time 26.7 sec (10.0-12.5)
[2024-09-28 06:13] LABS: Glucose,Whole Blood 98 mg/dL (70-110)
[2024-09-28 12:09] LABS: Glucose,Whole Blood 199 mg/dL (70-110)
--- NOTE | 2024-09-28 14:17 | P.PN ---
Subjective Progress Note Date: 09/28/24 Principal diagnosis: Reason for follow-up is perineal cellulitis Patient is a 73-year-old male with a past medical history of again for diabetes mellitus hypertension COPD heart failure presenting to the hospital for evaluation of significant weakness noticed to have perineal cellulitis CT negative for abscess prompting this consultation. On today's evaluation that is 09/28/2024, Patient is afebrile patient is currently on 2 L current oxygen and denies having any shortness of breath, the patient denies any chest pain or cough, the patient denies any nausea vomiting did not have any abdominal pain and no diarrhea, feeling better wants to go home. Patient did have INR of 2.7 no CBC was done today culture remains to be negative Objective - Vital Signs Vital signs: Vital Signs Temp 98.3 F 09/28/24 07:04 Pulse 62 09/28/24 07:04 Resp 18 09/28/24 07:04 BP 128/76 09/28/24 07:04 Pulse Ox 97 09/28/24 12:27 FiO2 Intake & Output 09/27/24 09/28/24 09/28/24 18:59 06:59 18:59 Intake Total 598 Output Total 700 Balance 598 -700 Intake: Oral 598 Output: Urine 700 Other: Voiding Method Bedside Commode Diaper Diaper External Catheter # Voids 3 # Bowel Movements 1 - Exam GENERAL DESCRIPTION: An elderly male lying in bed in no distress RESPIRATORY SYSTEM: Unlabored breathing , decreased breath sounds at bases HEART: S1 S2 regular rate and rhythm , ABDOMEN: Soft , no tenderness : Patient did have significant improvement with the perianal swelling and redness and no drainage was noticed EXTREMITIES: No edema feet - Labs CBC & Chem 7: 09/27/24 04:56 09/27/24 04:56 Labs: Abnormal Lab Results - Last 24 Hours (Table) 09/27/24 09/27/24 09/28/24 Range/Units 17:17 19:29 03:52 PT 26.7 H (10.0-12.5) sec INR 2.7 H (<1.2) POC Glucose (mg/dL) 229 H 126 H (70-110) mg/dL 09/28/24 Range/Units 12:08 PT (10.0-12.5) sec INR (<1.2) POC Glucose (mg/dL) 199 H (70-110) mg/dL Microbiology - Last 24 Hours (Table) 09/24/24 12:38 Blood Culture - Preliminary Blood Assessment and Plan (1) Perianal cellulitis Current Visit: Yes Status: Acute Code(s): K61.0 - ANAL ABSCESS SNOMED Code(s): 468821117 (2) Leukocytosis Current Visit: Yes Status: Acute Code(s): D72.829 - ELEVATED WHITE BLOOD CELL COUNT, UNSPECIFIED SNOMED Code(s): 993273666 (3) Sepsis Current Visit: No Status: Acute Code(s): A41.9 - SEPSIS, UNSPECIFIED ORGANISM SNOMED Code(s): 18263601 Plan: 1patient to the hospital with sepsis in this patient who did have elevated white count tachycardia hypotension meeting criteria for SIRS source with likely perineal cellulitis and likely from gram-positive skin johnie however gram- negative infection not entirely excluded 2-local cultures so far negative for any resistant pathogen and the patient has shown significant improvement to the perineal cellulitis, patient has also lost his IV 3patient is currently being treated with oral Augmentin to continue for about a week on discharge Dictation was produced using [employer] dictation software. please excuse any grammatical, word or spelling errors. Time with Patient: Less than 30
[2024-09-28 17:39] LABS: Glucose,Whole Blood 107 mg/dL (70-110)
[2024-09-28] MEDS: WARFARIN 3 MG TAB PO ONE (17:44)
[2024-09-28 19:42] LABS: Glucose,Whole Blood 134 mg/dL (70-110)
--- NOTE | 2024-09-28 20:26 | P.PN ---
Subjective Patient is a 73-year-old male with a known history of chronic CHF with systolic dysfunction ejection fraction 30 to 35% with severe RV enlargement and bioprosthetic valve replacement,, history of CABG, status post pacemaker placement persistent atrial fibrillation on anticoagulation with Coumadin, depression, diabetes type 2 nonsignificant, BPH and depression. Patient was recently discharged from the hospital on 07/12/2024. Patient was admitted to hospital with acute on chronic CHF and metabolic encephalopathy. Patient presents to ER with complaints of generalized weakness and was going to fall down. Patient states that he got up this morning unable to hold his weight. Patient was also delirious and was talking to himself. Denied any focal weakness. Denied any numbness or tingling of the extremities. No complaints of chest pain or worsening shortness of breath. No nausea vomiting abdominal pain or diarrhea. Denied any recent illnesses. Patient just feels weak all over. EKG showed electronic ventricular pacemaker rhythm. On admission blood pressure 96/67 pulse 103 respiration 18 pulse ox 98% on room air. Laboratory data showed WBC 17.0 hemoglobin 12.2 and platelets 216 sodium 139 potassium 4.6 chloride 100 bicarb is 27 BUN 51 and creatinine 1.41 Troponin 0.030 and proBNP 3520. Urinalysis is negative for infection. CT abdomen pelvis showed no significant abnormality. 09/25 Patient was admitted for perianal cellulitis and sepsis, has been evaluated by ID team and currently is placed on broad-spectrum antibiotics with Zosyn and daptomycin Patient kind of poor historian he does not give clear history however he is able to answer questions and follow commands. Possible some elements of encephalopathy. His acute kidney injury is improved with creatinine down to 1.4 down to 1.1 with close to baseline. INR 1.9 while he is on warfarin given his history of atrial fibrillation Also is status post bioprosthetic valve replacement He is mainly complaining from pain in his right hip area. He is hemodynamically stable and afebrile INR 1.9, WBC coming down 17,000 down to 11,000. Also creatinine improving as above. 09/26 Patient pain is improving No other new complaints no chest pain or dyspnea He looks little bit delirious related to his infection but that is improved with reorientation. He told the nurse he sees spiders but when I went to the room he denies seeing any such things He is calm. Hemodynamically stable and afebrile INR therapeutic today 2.0 Wound culture and blood culture are still pending Remains on warfarin, Zosyn and daptomycin Possible discharge in 24 to 48 hours 09/27 Patient perineal cellulitis improving significantly and antibiotic was switched to Augmentin Feels fine and he agrees for discharge whenever placement is ready for him. He will require rehab however he had co-pay of around $3000 per staff, casework specialist on the case He denies any other new complaint INR therapeutic while he is on warfarin Patient medically stable pending placement 09/28 Patient infection in the perineal area significantly improved and patient antibiotics can be switched to oral Keflex for 7 days upon discharge per ID team Patient himself is more energetic and interactive although he is still have some disorientation, also his with dysarthria which looks chronic and some of his talking is difficult to understand Patient denies any other new complaints. Patient is eager to go home today. And he request to be discharged Labs and vitals reviewed and looks stable I talked to his over the phone she said she cannot come and take him home today and possibly tomorrow. Initially patient supposed to go to subacute rehab but he has high co-pay of about $ 3000 therefore patient and family decided to go home with home health care which was ordered Objective - Vital Signs Vital signs: Vital Signs Temp 97.9 F 09/28/24 14:00 Pulse 55 L 09/28/24 14:00 Resp 18 09/28/24 14:00 BP 121/73 09/28/24 14:00 Pulse Ox 95 09/28/24 14:00 FiO2 Intake & Output 09/27/24 09/28/24 09/28/24 18:59 06:59 18:59 Intake Total 598 Output Total 700 Balance 598 -700 Intake: Oral 598 Output: Urine 700 Other: Voiding Method Bedside Commode Diaper Diaper External Catheter # Voids 3 # Bowel Movements 1 - Exam -Patient GENERAL: The patient is alert and oriented x3, not in any acute distress. Well developed, well nourished. Morbidly obese, generally weak HEENT: Pupils are round and equally reacting to light. EOMI. No scleral icterus. No conjunctival pallor. Normocephalic, atraumatic. No pharyngeal erythema. No thyromegaly. CARDIOVASCULAR: S1 and S2 present perianal cellulitis. No murmurs, rubs, or gallops. PULMONARY: Chest is clear to auscultation, no wheezing , no crackles. ABDOMEN: Soft, nontender, nondistended, normoactive bowel sounds. No palpable organomegaly. MUSCULOSKELETAL: No joint swelling or deformity. EXTREMITIES: No cyanosis, clubbing, or pedal edema. NEUROLOGICAL: Gross neurological examination did not reveal any focal deficits. -SKIN: No rashes. no petechiae. Perianal cellulitis - Labs CBC & Chem 7: 09/27/24 04:56 09/27/24 04:56 Labs: Abnormal Lab Results - Last 24 Hours (Table) 09/27/24 09/27/24 09/28/24 Range/Units 17:17 19:29 03:52 PT 26.7 H (10.0-12.5) sec INR 2.7 H (<1.2) POC Glucose (mg/dL) 229 H 126 H (70-110) mg/dL 09/28/24 Range/Units 12:08 PT (10.0-12.5) sec INR (<1.2) POC Glucose (mg/dL) 199 H (70-110) mg/dL Microbiology - Last 24 Hours (Table) 09/24/24 12:38 Blood Culture - Preliminary Blood Assessment and Plan Assessment: Perianal cellulitis Sepsis secondary to above Metabolic encephalopathy Acute kidney injury on CKD stage III, improved Paroxysmal atrial fibrillation on Coumadin Coronary artery disease status post CABG History of bioprosthetic valve replacement Recurrent falls Hypertension Hyperlipidemia Diabetes mellitus Plan: Continue with antibiotic as per ID team, continue Augmentin Infectious is consult Continue with warfarin and monitor INR Continue with aspirin Resume home medication Monitor electrolytes and vitals. Labs and medication were reviewed.. Continue same treatment. Continue with symptomatic treatment. Resume home medication. Monitor labs and vitals. DVT and GI prophylaxis. Further recommendations as per clinical course of the patient DVT prophylaxis: On warfarin GI Prophylaxis: Pepcid PT/OT: Pending Prognosis is guarded Patient medically stable pending placement
[2024-09-29 05:47] LABS: Glucose,Whole Blood 153 mg/dL (70-110)
[2024-09-29] MEDS: ACETAMINOPHEN TAB 325 MG TAB PO PRN (06:31)
[2024-09-29 07:41] LABS: INR 2.2 (<1.2)
[2024-09-29 12:21] LABS: Glucose,Whole Blood 111 mg/dL (70-110)
--- NOTE | 2024-09-29 14:36 | P.PN ---
Subjective Progress Note Date: 09/29/24 Principal diagnosis: Reason for follow-up is perineal cellulitis Patient is a 73-year-old male with a past medical history of again for diabetes mellitus hypertension COPD heart failure presenting to the hospital for evaluation of significant weakness noticed to have perineal cellulitis CT negative for abscess prompting this consultation. On today's evaluation that is 09/29/2024, patient has been afebrile, patient is breathing comfortably and is currently on room air, patient denies having any chest pain and cough, patient denies nausea vomiting or diarrhea and no abdominal pain. Patient did have a INR of 2.2 culture remains to be negative Objective - Vital Signs Vital signs: Vital Signs Temp 98.7 F 09/29/24 07:23 Pulse 60 09/29/24 07:23 Resp 17 09/29/24 07:23 BP 114/69 09/29/24 07:23 Pulse Ox 95 09/29/24 08:33 FiO2 21 09/29/24 08:33 Intake & Output 09/28/24 09/29/24 09/29/24 18:59 06:59 18:59 Intake Total 780 Output Total 700 Balance 80 Intake: Oral 780 Output: Urine 700 Other: Voiding Method Diaper External Catheter # Voids 1 - Exam GENERAL DESCRIPTION: An elderly male up in the chair in no distress RESPIRATORY SYSTEM: Unlabored breathing , decreased breath sounds at bases HEART: S1 S2 regular rate and rhythm , ABDOMEN: Soft , no tenderness - Labs CBC & Chem 7: 09/27/24 04:56 09/27/24 04:56 Labs: Abnormal Lab Results - Last 24 Hours (Table) 09/28/24 09/29/24 09/29/24 Range/Units 19:40 05:45 06:58 PT 22.0 H (10.0-12.5) sec INR 2.2 H (<1.2) POC Glucose (mg/dL) 134 H 153 H (70-110) mg/dL 09/29/24 Range/Units 12:19 PT (10.0-12.5) sec INR (<1.2) POC Glucose (mg/dL) 111 H (70-110) mg/dL Assessment and Plan (1) Perianal cellulitis Current Visit: Yes Status: Acute Code(s): K61.0 - ANAL ABSCESS SNOMED Code(s): 684031202 (2) Leukocytosis Current Visit: Yes Status: Acute Code(s): D72.829 - ELEVATED WHITE BLOOD CELL COUNT, UNSPECIFIED SNOMED Code(s): 981843063 (3) Sepsis Current Visit: No Status: Acute Code(s): A41.9 - SEPSIS, UNSPECIFIED ORGANISM SNOMED Code(s): 74289620 Plan: 1patient to the hospital with sepsis in this patient who did have elevated white count tachycardia hypotension meeting criteria for SIRS source with likely perineal cellulitis and likely from gram-positive skin johnie however gram- negative infection not entirely excluded 2-local cultures so far negative for any resistant pathogen and the patient has shown significant improvement to the perineal cellulitis, 3patient to continue with oral Augmentin for about a week on discharge and monitor clinical course closely Dictation was produced using [employer] dictation software. please excuse any grammatical, word or spelling errors. Time with Patient: Less than 30
[2024-09-29 17:03] LABS: Glucose,Whole Blood 132 mg/dL (70-110)
[2024-09-29] MEDS: WARFARIN 5 MG TAB PO ONE (17:58)
[2024-09-29 20:22] LABS: Glucose,Whole Blood 182 mg/dL (70-110)
--- NOTE | 2024-09-29 20:49 | P.PN ---
Subjective Patient is a 73-year-old male with a known history of chronic CHF with systolic dysfunction ejection fraction 30 to 35% with severe RV enlargement and bioprosthetic valve replacement,, history of CABG, status post pacemaker placement persistent atrial fibrillation on anticoagulation with Coumadin, depression, diabetes type 2 nonsignificant, BPH and depression. Patient was recently discharged from the hospital on 07/12/2024. Patient was admitted to hospital with acute on chronic CHF and metabolic encephalopathy. Patient presents to ER with complaints of generalized weakness and was going to fall down. Patient states that he got up this morning unable to hold his weight. Patient was also delirious and was talking to himself. Denied any focal weakness. Denied any numbness or tingling of the extremities. No complaints of chest pain or worsening shortness of breath. No nausea vomiting abdominal pain or diarrhea. Denied any recent illnesses. Patient just feels weak all over. EKG showed electronic ventricular pacemaker rhythm. On admission blood pressure 96/67 pulse 103 respiration 18 pulse ox 98% on room air. Laboratory data showed WBC 17.0 hemoglobin 12.2 and platelets 216 sodium 139 potassium 4.6 chloride 100 bicarb is 27 BUN 51 and creatinine 1.41 Troponin 0.030 and proBNP 3520. Urinalysis is negative for infection. CT abdomen pelvis showed no significant abnormality. 09/25 Patient was admitted for perianal cellulitis and sepsis, has been evaluated by ID team and currently is placed on broad-spectrum antibiotics with Zosyn and daptomycin Patient kind of poor historian he does not give clear history however he is able to answer questions and follow commands. Possible some elements of encephalopathy. His acute kidney injury is improved with creatinine down to 1.4 down to 1.1 with close to baseline. INR 1.9 while he is on warfarin given his history of atrial fibrillation Also is status post bioprosthetic valve replacement He is mainly complaining from pain in his right hip area. He is hemodynamically stable and afebrile INR 1.9, WBC coming down 17,000 down to 11,000. Also creatinine improving as above. 09/26 Patient pain is improving No other new complaints no chest pain or dyspnea He looks little bit delirious related to his infection but that is improved with reorientation. He told the nurse he sees spiders but when I went to the room he denies seeing any such things He is calm. Hemodynamically stable and afebrile INR therapeutic today 2.0 Wound culture and blood culture are still pending Remains on warfarin, Zosyn and daptomycin Possible discharge in 24 to 48 hours 09/27 Patient perineal cellulitis improving significantly and antibiotic was switched to Augmentin Feels fine and he agrees for discharge whenever placement is ready for him. He will require rehab however he had co-pay of around $3000 per staff, case managers on the case He denies any other new complaint INR therapeutic while he is on warfarin Patient medically stable pending placement 09/28 Patient infection in the perineal area significantly improved and patient antibiotics can be switched to oral Keflex for 7 days upon discharge per ID team Patient himself is more energetic and interactive although he is still have some disorientation, also his with dysarthria which looks chronic and some of his talking is difficult to understand Patient denies any other new complaints. Patient is eager to go home today. And he request to be discharged Labs and vitals reviewed and looks stable I talked to his over the phone she said she cannot come and take him home today and possibly tomorrow. Initially patient supposed to go to subacute rehab but he has high co-pay of about $ 3000 therefore patient and family decided to go home with home health care which was ordered 09/29 Patient currently improved back to baseline although he still have somewhat poor communication related to his dysarthria and history of schizophrenia. On the top of his large body habitus. However he is no more lethargic or weak and he is interactive. INR today is 2.2 after Coumadin 5 mg which is his home dose We supposed to be discharging him today because the could not come and take him yesterday. However the changed her mind today states that she cannot take care of him and request to be evaluated for possible ECF for rehab with social work instructor tomorrow as today is weekend on Monday Objective - Vital Signs Vital signs: Vital Signs Temp 98.7 F 09/29/24 07:23 Pulse 60 09/29/24 07:23 Resp 17 09/29/24 07:23 BP 114/69 09/29/24 07:23 Pulse Ox 95 09/29/24 08:33 FiO2 21 09/29/24 08:33 Intake & Output 09/28/24 09/29/24 09/29/24 18:59 06:59 18:59 Intake Total 780 Output Total 700 Balance 80 Intake: Oral 780 Output: Urine 700 Other: Voiding Method Diaper External Catheter # Voids 1 - Exam -Patient GENERAL: The patient is alert and oriented x3, not in any acute distress. Well developed, well nourished. Morbidly obese, generally weak HEENT: Pupils are round and equally reacting to light. EOMI. No scleral icterus. No conjunctival pallor. Normocephalic, atraumatic. No pharyngeal erythema. No thyromegaly. CARDIOVASCULAR: S1 and S2 present perianal cellulitis. No murmurs, rubs, or gallops. PULMONARY: Chest is clear to auscultation, no wheezing , no crackles. ABDOMEN: Soft, nontender, nondistended, normoactive bowel sounds. No palpable organomegaly. MUSCULOSKELETAL: No joint swelling or deformity. EXTREMITIES: No cyanosis, clubbing, or pedal edema. NEUROLOGICAL: Gross neurological examination did not reveal any focal deficits. -SKIN: No rashes. no petechiae. Perianal cellulitis - Labs CBC & Chem 7: 09/27/24 04:56 09/27/24 04:56 Labs: Abnormal Lab Results - Last 24 Hours (Table) 09/28/24 09/29/24 09/29/24 Range/Units 19:40 05:45 06:58 PT 22.0 H (10.0-12.5) sec INR 2.2 H (<1.2) POC Glucose (mg/dL) 134 H 153 H (70-110) mg/dL 09/29/24 Range/Units 12:19 PT (10.0-12.5) sec INR (<1.2) POC Glucose (mg/dL) 111 H (70-110) mg/dL Assessment and Plan Assessment: Perianal cellulitis Sepsis secondary to above Metabolic encephalopathy Acute kidney injury on CKD stage III, improved Paroxysmal atrial fibrillation on Coumadin Coronary artery disease status post CABG History of bioprosthetic valve replacement Recurrent falls Hypertension Hyperlipidemia Diabetes mellitus Plan: Continue with antibiotic as per ID team, continue Augmentin Infectious is consult Continue with warfarin and monitor INR Continue with aspirin Resume home medication Monitor electrolytes and vitals. Labs and medication were reviewed.. Continue same treatment. Continue with symptomatic treatment. Resume home medication. Monitor labs and vitals. DVT and GI prophylaxis. Further recommendations as per clinical course of the patient DVT prophylaxis: On warfarin GI Prophylaxis: Pepcid PT/OT: Pending Prognosis is guarded Patient medically stable pending placement
[2024-09-29] MEDS: FAMOTIDINE 20 MG TAB PO SCH (21:00)
[2024-09-30 04:40] LABS: INR 2.1 (<1.2)
[2024-09-30 05:40] LABS: Glucose,Whole Blood 96 mg/dL (70-110)
[2024-09-30 12:22] LABS: Glucose,Whole Blood 120 mg/dL (70-110)
[2024-09-30 17:14] LABS: Glucose,Whole Blood 104 mg/dL (70-110)
[2024-09-30] MEDS: WARFARIN 5 MG TAB PO ONE (17:54)
[2024-09-30] MEDS ORDERED: WARFARIN 3 MG TAB PO ONE (18:00)
--- NOTE | 2024-09-30 20:41 | P.PN ---
Subjective Patient is a 73-year-old male with a known history of chronic CHF with systolic dysfunction ejection fraction 30 to 35% with severe RV enlargement and bioprosthetic valve replacement,, history of CABG, status post pacemaker placement persistent atrial fibrillation on anticoagulation with Coumadin, depression, diabetes type 2 nonsignificant, BPH and depression. Patient was recently discharged from the hospital on 07/12/2024. Patient was admitted to hospital with acute on chronic CHF and metabolic encephalopathy. Patient presents to ER with complaints of generalized weakness and was going to fall down. Patient states that he got up this morning unable to hold his weight. Patient was also delirious and was talking to himself. Denied any focal weakness. Denied any numbness or tingling of the extremities. No complaints of chest pain or worsening shortness of breath. No nausea vomiting abdominal pain or diarrhea. Denied any recent illnesses. Patient just feels weak all over. EKG showed electronic ventricular pacemaker rhythm. On admission blood pressure 96/67 pulse 103 respiration 18 pulse ox 98% on room air. Laboratory data showed WBC 17.0 hemoglobin 12.2 and platelets 216 sodium 139 potassium 4.6 chloride 100 bicarb is 27 BUN 51 and creatinine 1.41 Troponin 0.030 and proBNP 3520. Urinalysis is negative for infection. CT abdomen pelvis showed no significant abnormality. 09/25 Patient was admitted for perianal cellulitis and sepsis, has been evaluated by ID team and currently is placed on broad-spectrum antibiotics with Zosyn and daptomycin Patient kind of poor historian he does not give clear history however he is able to answer questions and follow commands. Possible some elements of encephalopathy. His acute kidney injury is improved with creatinine down to 1.4 down to 1.1 with close to baseline. INR 1.9 while he is on warfarin given his history of atrial fibrillation Also is status post bioprosthetic valve replacement He is mainly complaining from pain in his right hip area. He is hemodynamically stable and afebrile INR 1.9, WBC coming down 17,000 down to 11,000. Also creatinine improving as above. 09/26 Patient pain is improving No other new complaints no chest pain or dyspnea He looks little bit delirious related to his infection but that is improved with reorientation. He told the nurse he sees spiders but when I went to the room he denies seeing any such things He is calm. Hemodynamically stable and afebrile INR therapeutic today 2.0 Wound culture and blood culture are still pending Remains on warfarin, Zosyn and daptomycin Possible discharge in 24 to 48 hours 09/27 Patient perineal cellulitis improving significantly and antibiotic was switched to Augmentin Feels fine and he agrees for discharge whenever placement is ready for him. He will require rehab however he had co-pay of around $3000 per staff, director of casework on the case He denies any other new complaint INR therapeutic while he is on warfarin Patient medically stable pending placement 09/28 Patient infection in the perineal area significantly improved and patient antibiotics can be switched to oral Keflex for 7 days upon discharge per ID team Patient himself is more energetic and interactive although he is still have some disorientation, also his with dysarthria which looks chronic and some of his talking is difficult to understand Patient denies any other new complaints. Patient is eager to go home today. And he request to be discharged Labs and vitals reviewed and looks stable I talked to his over the phone she said she cannot come and take him home today and possibly tomorrow. Initially patient supposed to go to subacute rehab but he has high co-pay of about $ 3000 therefore patient and family decided to go home with home health care which was ordered 09/29 Patient currently improved back to baseline although he still have somewhat poor communication related to his dysarthria and history of schizophrenia. On the top of his large body habitus. However he is no more lethargic or weak and he is interactive. INR today is 2.2 after Coumadin 5 mg which is his home dose We supposed to be discharging him today because the could not come and take him yesterday. However the changed her mind today states that she cannot take care of him and request to be evaluated for possible ECF for rehab with social worker palliative care tomorrow as today is weekend on Saturday 09/30 Patient is feeling okay He still feels improved No new complaints Staff also find him stable including bedside nurse Medically stable for discharge pending placement He will be discharged on oral antibiotics Objective - Vital Signs Vital signs: Vital Signs Temp 98.0 F 09/30/24 20:34 Pulse 62 09/30/24 20:34 Resp 18 09/30/24 20:34 BP 153/87 09/30/24 20:34 Pulse Ox 93 L 09/30/24 20:34 FiO2 21 09/29/24 08:33 Intake & Output 09/30/24 09/30/24 10/01/24 06:59 18:59 06:59 Intake Total 118 Output Total 650 Balance -532 Intake: Oral 118 Output: Urine 650 Other: Voiding Method Diaper Diaper External Catheter External Catheter # Voids 4 1 - Exam -Patient GENERAL: The patient is alert and oriented x3, not in any acute distress. Well developed, well nourished. Morbidly obese, generally weak HEENT: Pupils are round and equally reacting to light. EOMI. No scleral icterus. No conjunctival pallor. Normocephalic, atraumatic. No pharyngeal erythema. No thyromegaly. CARDIOVASCULAR: S1 and S2 present perianal cellulitis. No murmurs, rubs, or gall ops. PULMONARY: Chest is clear to auscultation, no wheezing , no crackles. ABDOMEN: Soft, nontender, nondistended, normoactive bowel sounds. No palpable organomegaly. MUSCULOSKELETAL: No joint swelling or deformity. EXTREMITIES: No cyanosis, clubbing, or pedal edema. NEUROLOGICAL: Gross neurological examination did not reveal any focal deficits. -SKIN: No rashes. no petechiae. Perianal cellulitis - Labs CBC & Chem 7: 09/27/24 04:56 09/27/24 04:56 Labs: Abnormal Lab Results - Last 24 Hours (Table) 09/30/24 09/30/24 Range/Units 04:08 12:17 PT 21.0 H (10.0-12.5) sec INR 2.1 H (<1.2) POC Glucose (mg/dL) 120 H (70-110) mg/dL Microbiology - Last 24 Hours (Table) 09/24/24 12:38 Blood Culture - Final Blood Assessment and Plan Assessment: Perianal cellulitis Sepsis secondary to above Metabolic encephalopathy Acute kidney injury on CKD stage III, improved Paroxysmal atrial fibrillation on Coumadin Coronary artery disease status post CABG History of bioprosthetic valve replacement Recurrent falls Hypertension Hyperlipidemia Diabetes mellitus Plan: Continue with antibiotic as per ID team, continue Augmentin Infectious is consult Continue with warfarin and monitor INR Continue with aspirin Resume home medication Monitor electrolytes and vitals. Labs and medication were reviewed.. Continue same treatment. Continue with symptomatic treatment. Resume home medication. Monitor labs and vitals. DVT and GI prophylaxis. Further recommendations as per clinical course of the sean ent DVT prophylaxis: On warfarin GI Prophylaxis: Pepcid PT/OT: Pending Prognosis is guarded Patient medically stable pending placement
[2024-09-30] MEDS: MELATONIN 3 MG TABLET PO SCH (20:54)
[2024-09-30 21:00] LABS: Glucose,Whole Blood 122 mg/dL (70-110)
--- NOTE | 2024-09-30 22:09 | P.PN ---
Subjective Progress Note Date: 09/30/24 Principal diagnosis: Reason for follow-up is perineal cellulitis Patient is a 73-year-old male with a past medical history of again for diabetes mellitus hypertension COPD heart failure presenting to the hospital for evaluation of significant weakness noticed to have perineal cellulitis CT negative for abscess prompting this consultation. On today's evaluation that is 09/29/2024, patient has been afebrile, patient is breathing comfortably and is currently on room air, patient denies having any chest pain and cough, patient denies nausea vomiting or diarrhea and no abdominal pain. Patient did have INR of 2.1 no CBC was done today culture remains to be negative Objective - Vital Signs Vital signs: Vital Signs Temp 97.8 F 09/30/24 07:48 Pulse 59 L 09/30/24 07:48 Resp 16 09/30/24 07:48 BP 146/89 09/30/24 07:48 Pulse Ox 96 09/30/24 07:48 FiO2 21 09/29/24 08:33 Intake & Output 09/29/24 09/30/24 09/30/24 18:59 06:59 18:59 Other: Voiding Method Diaper Diaper External Catheter External Catheter # Voids 4 4 2 - Exam GENERAL DESCRIPTION: An elderly male up in the chair in no distress RESPIRATORY SYSTEM: Unlabored breathing , decreased breath sounds at bases HEART: S1 S2 regular rate and rhythm , ABDOMEN: Soft , no tenderness - Labs CBC & Chem 7: 09/27/24 04:56 09/27/24 04:56 Labs: Abnormal Lab Results - Last 24 Hours (Table) 09/29/24 09/29/24 09/30/24 Range/Units 17:00 20:18 04:08 PT 21.0 H (10.0-12.5) sec INR 2.1 H (<1.2) POC Glucose (mg/dL) 132 H 182 H (70-110) mg/dL 09/30/24 Range/Units 12:17 PT (10.0-12.5) sec INR (<1.2) POC Glucose (mg/dL) 120 H (70-110) mg/dL Microbiology - Last 24 Hours (Table) 09/24/24 12:38 Blood Culture - Final Blood Assessment and Plan (1) Perianal cellulitis Current Visit: Yes Status: Acute Code(s): K61.0 - ANAL ABSCESS SNOMED Code(s): 028245245 (2) Leukocytosis Current Visit: Yes Status: Acute Code(s): D72.829 - ELEVATED WHITE BLOOD CELL COUNT, UNSPECIFIED SNOMED Code(s): 300548869 (3) Sepsis Current Visit: No Status: Acute Code(s): A41.9 - SEPSIS, UNSPECIFIED ORGANISM SNOMED Code(s): 69173140 Plan: 1patient to the hospital with sepsis in this patient who did have elevated wh ite count tachycardia hypotension meeting criteria for SIRS source with likely perineal cellulitis and likely from gram-positive skin johnie however gram- negative infection not entirely excluded 2-local cultures so far negative for any resistant pathogen and the patient has shown significant improvement to the perineal cellulitis, 3patient currently being treated with oral Augmentin which will be continued for about a week on discharge, currently waiting for placement Dictation was produced using [employer] dictation software. please excuse any grammatical, word or spelling errors. Time with Patient: Less than 30
[2024-10-01 05:46] LABS: INR 2.2 (<1.2); Prothrombin Time 21.7 sec (10.0-12.5)
[2024-10-01 06:10] LABS: Glucose,Whole Blood 154 mg/dL (70-110)
[2024-10-01 09:51] VITALS: BP 124/81; PULSE 59; RESP 16; TEMP 98.5
--- NOTE | 2024-10-01 11:27 | P.DS ---
Providers Date of admission: 09/24/24 14:35 Attending physician: Chirag Mckee Consults: 09/24/24 14:31 Consult Physician Urgent Consulting Provider: Juice Chery Consult Reason/Comments: Perineum infection Do you want consulting provider notified?: Yes Primary care physician: Cory Goodman MD Hospital Course: Diagnoses: Perianal cellulitis Sepsis secondary to above Metabolic encephalopathy Acute kidney injury on CKD stage III, improved Paroxysmal atrial fibrillation on Coumadin Coronary artery disease status post CABG History of bioprosthetic valve replacement Recurrent falls Hypertension Hyperlipidemia Diabetes mellitus Hospital course: Patient is a 73-year-old male with a known history of chronic CHF with systolic dysfunction ejection fraction 30 to 35% with severe RV enlargement and bioprosthetic valve replacement,, history of CABG, status post pacemaker placement persistent atrial fibrillation on anticoagulation with Coumadin, depression, diabetes type 2 nonsignificant, BPH and depression. Patient was recently discharged from the hospital on 07/12/2024. Patient was admitted to hospital with acute on chronic CHF and metabolic encephalopathy. Patient presents to ER with complaints of generalized weakness and was going to fall down. Patient states that he got up this morning unable to hold his weight. On admission patient was found to have perineal cellulitis. CT of the abdomen pelvis showed no acute abnormality. Patient evaluated by ID team and he was treated with IV antibiotics including Zosyn and daptomycin. Patient showed interval improvement and his symptoms improved and is back to his normal health. He denies any other new complaints and is eager to go home over the last 3 to 4 days but pending placement. states she cannot take care of him at home anymore. Patient will be discharged on oral antibiotics as per ID team will clear him for discharge. He will be on Augmentin x 1 week Problems and management plan were discussed with the patient and he verbalized understanding and acceptance Patient was found stable and can be discharged home in guarded prognosis however he needs follow-up as an outpatient. Patient was instructed to follow up with PCP within one week and patient agrees He is also on Coumadin/warfarin for paroxysmal A-fib. INR today is 2.2. Continue same treatment and close monitoring INR Physical exam Gen: patient is a AAOx3, no distress. Obesity CVS: S1-S2, RRR, no murmur Lungs: B/L CTA, no wheezing Abdomen: soft, no distention, no tenderness, positive bowel sounds Extremity: no leg edema or induration Time spent more than 35 minutes Plan - Discharge Summary New Discharge Prescriptions: New Amoxic-Pot Clav 875-125Mg [Augmentin 875-125] 1 each PO Q12HR 7 Days #14 tab Continue Atorvastatin [Lipitor] 40 mg PO HS OLANZapine 10 mg PO HS Amitriptyline HCl [Elavil] 25 mg PO HS Tamsulosin [Flomax] 0.4 mg PO HS modafiniL [Provigil] 200 mg PO DAILY #2 tab Warfarin [Coumadin] 5 mg PO HS Aspirin 81 mg PO DAILY #30 tab Metoprolol Tartrate [Lopressor] 25 mg PO BID #60 tab Pregabalin [Lyrica] 25 mg PO BID buPROPion XL [Wellbutrin XL] 300 mg PO DAILY traMADol HCL 50 mg PO TID PRN PRN Reason: Pain metFORMIN HCL [Glucophage] 500 mg PO DAILY Nitroglycerin 0.3mg Mg Sl Tab 0.3 mg SL Q5M PRN PRN Reason: Chest Pain Ipratropium-Albuterol Nebulize [Duoneb 0.5 mg-3 mg/3 ml Soln] 3 ml INHALATION RT-QID PRN PRN Reason: Shortness Of Breath Furosemide [Lasix] 20 mg PO DAILY #30 tab Budesonide/Formoterol Fumarate [Symbicort 160-4.5 Mcg Inhaler] 2 puff INHALATION RT-BID Multivitamins, Thera [Multivitamin (formulary)] 1 tab PO DAILY Psyllium Husk [Fiber Capsule] 0.8 gm PO DAILY No Action Cetirizine HCl [Zyrtec] 10 mg PO DAILY Discharge Medication List Atorvastatin [Lipitor] 40 mg PO HS 11/23/16 [History] OLANZapine 10 mg PO HS 08/25/21 [History] buPROPion XL [Wellbutrin XL] 300 mg PO DAILY 08/25/21 [History] Amitriptyline HCl [Elavil] 25 mg PO HS 07/20/23 [History] Tamsulosin [Flomax] 0.4 mg PO HS 07/20/23 [History] modafiniL [Provigil] 200 mg PO DAILY #2 tab 07/28/23 [Rx] Ipratropium-Albuterol Nebulize [Duoneb 0.5 mg-3 mg/3 ml Soln] 3 ml INHALATION RT-QID PRN 07/04/24 [History] Nitroglycerin 0.3mg Mg Sl Tab 0.3 mg SL Q5M PRN 07/04/24 [History] Warfarin [Coumadin] 5 mg PO HS 07/04/24 [History] metFORMIN HCL [Glucophage] 500 mg PO DAILY 07/04/24 [History] traMADol HCL 50 mg PO TID PRN 07/04/24 [History] Aspirin 81 mg PO DAILY #30 tab 07/12/24 [Rx] Furosemide [Lasix] 20 mg PO DAILY #30 tab 07/12/24 [Rx] Metoprolol Tartrate [Lopressor] 25 mg PO BID #60 tab 07/12/24 [Rx] Budesonide/Formoterol Fumarate [Symbicort 160-4.5 Mcg Inhaler] 2 puff INHALATION RT-BID 09/24/24 [History] Cetirizine HCl [Zyrtec] 10 mg PO DAILY 09/24/24 [History] Multivitamins, Thera [Multivitamin (formulary)] 1 tab PO DAILY 09/24/24 [Histo ry] Pregabalin [Lyrica] 25 mg PO BID 09/24/24 [History] Psyllium Husk [Fiber Capsule] 0.8 gm PO DAILY 09/24/24 [History] Amoxic-Pot Clav 875-125Mg [Augmentin 875-125] 1 each PO Q12HR 7 Days #14 tab [Rx] Follow up Appointment(s)/Referral(s): Cory Goodman MD [Primary Care Provider] - 1-2 days Juice Chery MD [STAFF PHYSICIAN] - 1 Week [facility], [NON-STAFF] - As Needed ([facility] will call you to schedule your in home nursing, physical therapy, occupational therapy, and home health aide visits. ) Ambulatory/Diagnostic Orders: Prothrombin Time INR [LAB.AMB] Time Frame: 3 Days, Location: None Selected Activity/Diet/Wound Care/Special Instructions: Heart healthy diet Activity is restricted till you see your doctor We recommend to check your INR in 2 to 3 days. Your goal INR is 2.0-3.0. If your INR more than 3.0 hold your Coumadin for 1 day and talk to your doctor right away Discharge Disposition: HOME WITH HOME HEALTH SERVICES
[2024-10-01 11:54] VITALS: BMI 57.6
[2024-10-01 12:20] LABS: Glucose,Whole Blood 150 mg/dL (70-110)
--- NOTE | 2024-10-01 14:46 | P.PN ---
Subjective Progress Note Date: 10/01/24 Principal diagnosis: Reason for follow-up is perineal cellulitis Patient is a 73-year-old male with a past medical history of again for diabetes mellitus hypertension COPD heart failure presenting to the hospital for evaluation of significant weakness noticed to have perineal cellulitis CT negative for abscess prompting this consultation. On today's evaluation that is 10/01/2024,the patient denies any fever or any chills, patient is breathing comfortably on room air, the patient denies chest pain shortness of breath and no significant cough, patient denies abdominal pain, no nausea vomiting or diarrhea. Patient did have INR of 2.2 no CBC was done today blood and wound culture remains to be negative Objective - Vital Signs Vital signs: Vital Signs Temp 98.5 F 10/01/24 07:20 Pulse 59 L 10/01/24 07:20 Resp 16 10/01/24 07:20 BP 124/81 10/01/24 07:20 Pulse Ox 93 L 10/01/24 07:20 FiO2 21 09/29/24 08:33 Intake & Output 09/30/24 10/01/24 10/01/24 18:59 06:59 18:59 Intake Total 118 300 Output Total 650 Balance -532 300 Weight 171.912 kg Intake: Oral 118 300 Output: Urine 650 Other: Voiding Method Diaper Diaper External Catheter # Voids 1 1 - Exam GENERAL DESCRIPTION: An elderly male up in the chair in no distress RESPIRATORY SYSTEM: Unlabored breathing , decreased breath sounds at bases HEART: S1 S2 regular rate and rhythm , ABDOMEN: Soft , no tenderness - Labs CBC & Chem 7: 09/27/24 04:56 09/27/24 04:56 Labs: Abnormal Lab Results - Last 24 Hours (Table) 09/30/24 10/01/24 10/01/24 Range/Units 20:58 06:00 06:07 PT 21.7 H (10.0-12.5) sec INR 2.2 H (<1.2) POC Glucose (mg/dL) 122 H 154 H (70-110) mg/dL 10/01/24 Range/Units 12:19 PT (10.0-12.5) sec INR (<1.2) POC Glucose (mg/dL) 150 H (70-110) mg/dL Assessment and Plan (1) Perianal cellulitis Status: Acute Code(s): K61.0 - ANAL ABSCESS SNOMED Code(s): 394124040 (2) Leukocytosis Status: Acute Code(s): D72.829 - ELEVATED WHITE BLOOD CELL COUNT, UNSPECIFIED SNOMED Code(s): 362743241 (3) Sepsis Status: Acute Code(s): A41.9 - SEPSIS, UNSPECIFIED ORGANISM SNOMED Code(s): 11223122 Plan: 1patient to the hospital with sepsis in this patient who did have elevated white count tachycardia hypotension meeting criteria for SIRS source with likely perineal cellulitis and likely from gram-positive skin johnie however gram- negative infection not entirely excluded 2-local cultures so far negative for any resistant pathogen and the patient has shown significant improvement to the perineal cellulitis, 3patient blood and local culture remains to be negative he will finish out course of oral Augmentin and close outpatient follow-up Dictation was produced using [employer] dictation software. please excuse any grammatical, word or spelling errors. Time with Patient: Less than 30
[2024-10-01] MEDS ORDERED: WARFARIN 5 MG TAB PO ONE (18:00)
== END 2024-10-01 14:10 | disposition home health service (06) | DRG 871 ==
LOC: EC 08:22 → 6NMEDSUR 14:34 → OBSVTOIN 14:35 → 6NMEDSUR 15:33
PROVIDERS: ADMIT Internal Medicine; ATTEND Internal Medicine
DX: A41.9 Sepsis, unspecified organism (principal); G93.41 Metabolic encephalopathy; I50.23 Acute on chronic systolic (congestive) heart failure; N17.0 Acute kidney failure with tubular necrosis; I13.0 Hypertensive heart and chronic kidney disease with heart failure and stage 1 through stage 4 chronic kidney disease, or unspecified chronic kidney disease; E11.22 Type 2 diabetes mellitus with diabetic chronic kidney disease; E66.01 Morbid (severe) obesity due to excess calories; J44.9 Chronic obstructive pulmonary disease, unspecified; N18.30 Chronic kidney disease, stage 3 unspecified; F20.9 Schizophrenia, unspecified; F32.A Depression, unspecified; Z95.3 Presence of xenogenic heart valve; I48.19 Other persistent atrial fibrillation; Z68.43 Body mass index [BMI] 50.0-59.9, adult; L03.315 Cellulitis of perineum; K61.0 Anal abscess; N17.9 Acute kidney failure, unspecified; E11.649 Type 2 diabetes mellitus with hypoglycemia without coma; I25.5 Ischemic cardiomyopathy; E78.5 Hyperlipidemia, unspecified; I25.10 Atherosclerotic heart disease of native coronary artery without angina pectoris; N40.0 Benign prostatic hyperplasia without lower urinary tract symptoms; R29.6 Repeated falls; Z79.01 Long term (current) use of anticoagulants; Z79.51 Long term (current) use of inhaled steroids; Z79.82 Long term (current) use of aspirin; Z79.84 Long term (current) use of oral hypoglycemic drugs; Z79.899 Other long term (current) drug therapy; Z87.891 Personal history of nicotine dependence; Z95.0 Presence of cardiac pacemaker; Z95.1 Presence of aortocoronary bypass graft; Z91.81 History of falling
CPT/HCPCS: 36415; 71046; 72193; 80048; 80053; 81001; 83036; 83605; 83735; 83880; 84484; 85025; 85610; 85730; 87040; 87070; 87205; 93005; 94640; 94760; 96365; 96366; 96375; 99285

== ENCOUNTER 2024-11-12 17:18 | Emergency (ER) | payer MEDICARE ==
--- NOTE | 2024-11-12 18:27 | ED ---
Recheck HPI - General Source: patient, family Mode of arrival: ambulatory Limitations: no limitations <Carol Davidson - Last Filed: 11/12/24 18:27> - General Source: patient, family, RN notes reviewed, old records reviewed Mode of arrival: ambulatory Limitations: no limitations - History of Present Illness MD Complaint: abnormal lab (Elevated INR) -: unknown Symptoms Since Prior Visit: no new symptoms Context: called for abnormal lab result Associated Symptoms: none <Dileep Hagan - Last Filed: 11/19/24 18:17> - General Chief Complaint: Recheck/Abnormal Lab/Rx Stated Complaint: Abn labs Time Seen by Provider: 11/12/24 18:27 - History of Present Illness Initial Comments: Quick note: 73-year-old male presented the ER for evaluation of elevated INR. Patient had blood work drawn today and was found to have an INR of 10. Patient was contacted and told to come to the ER for further evaluation. Patient denies any active bleeding or pain. Patient did not take warfarin today. (Carol Davidson) This is a 73-year-old male to the ER for evaluation patient was formed that he has an INR greater than 10 on anticoagulation no recent change in medications no antibiotics. Patient has no complaints no active bleeding no lightheadedness dizziness or weakness. (Dileep Hagan) - Related Data Home Medications Medication Instructions Recorded Confirmed Atorvastatin [Lipitor] 40 mg PO HS 11/23/16 09/24/24 OLANZapine 10 mg PO HS 08/25/21 09/24/24 buPROPion XL [Wellbutrin XL] 300 mg PO DAILY 08/25/21 09/24/24 Amitriptyline HCl [Elavil] 25 mg PO HS 07/20/23 09/24/24 Tamsulosin [Flomax] 0.4 mg PO HS 07/20/23 09/24/24 Ipratropium-Albuterol Nebulize 3 ml INHALATION RT-QID PRN 07/04/24 09/24/24 [Duoneb 0.5 mg-3 mg/3 ml Soln] Nitroglycerin 0.3mg Mg Sl Tab 0.3 mg SL Q5M PRN 07/04/24 09/24/24 Warfarin [Coumadin] 5 mg PO HS 07/04/24 09/24/24 metFORMIN HCL [Glucophage] 500 mg PO DAILY 07/04/24 09/24/24 Budesonide/Formoterol Fumarate 2 puff INHALATION RT-BID 09/24/24 09/24/24 [Symbicort 160-4.5 Mcg Inhaler] Cetirizine HCl [Zyrtec] 10 mg PO DAILY 09/24/24 09/24/24 Multivitamins, Thera [Multivitamin 1 tab PO DAILY 09/24/24 09/24/24 (formulary)] Psyllium Husk [Fiber Capsule] 0.8 gm PO DAILY 09/24/24 09/24/24 Previous Rx's Medication Instructions Recorded modafiniL [Provigil] 200 mg PO DAILY #2 tab 07/28/23 Aspirin 81 mg PO DAILY #30 tab 07/12/24 Furosemide [Lasix] 20 mg PO DAILY #30 tab 07/12/24 Metoprolol Tartrate [Lopressor] 25 mg PO BID #60 tab 07/12/24 Amoxic-Pot Clav 875-125Mg 1 each PO Q12HR 7 Days #14 tab 09/28/24 [Augmentin 875-125] Allergies Allergy/AdvReac Type Severity Reaction Status Date / Time midodrine AdvReac contraindicated Verified 11/12/24 17:[address] Cruz Review of Systems ROS Other: All systems not noted in ROS Statement are negative. <Carol Davidson - Last Filed: 11/12/24 18:27> ROS Other: All systems not noted in ROS Statement are negative. <Dileep Hagan - Last Filed: 11/19/24 18:17> ROS Statement: Those systems with pertinent positive or pertinent negative responses have been documented in the HPI. Past Medical History Past Medical History: Heart Failure, COPD, Diabetes Mellitus, Hypertension, Sleep Apnea/CPAP/BIPAP Additional Past Medical History / Comment(s): irregular heartbeat, varicose veins, 2 herniated disk/degenerative disks, leaky heart valve, "blood clots in the heart" History of Any Multi-Drug Resistant Organisms: None Reported Past Surgical History: Appendectomy, Bowel Resection, Cardiac Valve Replacement, Heart Catheterization, Orthopedic Surgery, Pacemaker, Tonsillectomy Additional Past Surgical History / Comment(s): left shoulder surgery, surgery for sleep apnea, deana cataracts, Aortic Valve replacement (bovine) 06/2016 Past Anesthesia/Blood Transfusion Reactions: No Reported Reaction Type of Cardiac Device: Permanent Pacemaker Device Placement Date:: 12/24/2018 Past Psychological History: Depression Smoking Status: Former smoker Past Alcohol Use History: Occasional Past Drug Use History: None Reported - Past Family History Mother Family Medical History: No Reported History <Carol Davidson - Last Filed: 11/12/24 18:27> General Exam Limitations: no limitations <Carol Davidson - Last Filed: 11/12/24 18:27> General appearance: alert, in no apparent distress Head exam: Present: atraumatic, normocephalic, normal inspection Eye exam: Present: normal appearance, PERRL, EOMI. Absent: scleral icterus, conjunctival injection, periorbital swelling ENT exam: Present: normal exam, mucous membranes moist Neck exam: Present: normal inspection. Absent: tenderness, meningismus, lymphadenopathy Respiratory exam: Present: normal lung sounds bilaterally. Absent: respiratory distress, wheezes, rales, rhonchi, stridor Cardiovascular Exam: Present: regular rate, normal rhythm, normal heart sounds. Absent: systolic murmur, diastolic murmur, rubs, gallop, clicks GI/Abdominal exam: Present: soft, normal bowel sounds. Absent: distended, tenderness, guarding, rebound, rigid Extremities exam: Present: normal inspection, full ROM, normal capillary refill. Absent: tenderness, pedal edema, joint swelling, calf tenderness Back exam: Present: normal inspection Neurological exam: Present: alert, oriented X3, CN II-XII intact Psychiatric exam: Present: normal affect, normal mood Skin exam: Present: warm, dry, intact, normal color. Absent: rash <Dileep Hagan - Last Filed: 11/19/24 18:17> - General Exam Comments Initial Comments: Visual Physical Exam Vital signs reviewed General: Well-appearing, nontoxic, no acute distress. Head: Normocephalic, atraumatic Eyes: PERRLA, EOMI ENT: Airway patent Chest: Nonlabored breathing Skin: No visual rash, normal skin tone Neuro: Alert and oriented 3 Musculoskeletal: No gross abnormalities (Carol Davidson) Course <Dileep Hagan - Last Filed: 11/19/24 18:17> Vital Signs 06/10/25 06/10/25 17:19 22:48 Temperature 97.8 F 98.1 F Pulse Rate 90 78 Respiratory 16 18 Rate Blood Pressure 137/81 134/76 O2 Sat by Pulse 95 95 Oximetry - Reevaluation(s) Reevaluation #1: Medical records reviewed (Dileep Hagan) Reevaluation #2: Patient symptoms improved (Dileep Hagan) Reevaluation #3: Patient informed of results questions answered (Dileep Hagan) Reevaluation #4: Was pt. sent in by a medical professional or institution (, PA, [employer], urgent care, hospital, or intermediate...) When possible be specific @ -no Did you speak to anyone other than the patient for history (EMS, parent, family, police, friend...)? What history was obtained from this source @ -no Did you review nursing and triage notes (agree or disagree)? Why? @ -agree Are old charts reviewed (outside hosp., previous admission, EMS record, old EKG, old radiological studies, urgent care reports/EKG's, intermediate records)? Report findings @ -yes Differential Diagnosis (chest pain, altered mental status, abdominal pain women, abdominal pain men, vaginal bleeding, weakness, fever, dyspnea, syncope, headache, dizziness, GI bleed, back pain, seizure, CVA, palpatations, mental health, musculoskeletal)? @ -prior EKG interpreted by me (3pts min.). @ -no X-rays interpreted by me (1pt min.). @ -no CT interpreted by me (1pt min.). @ -no U/S interpreted by me (1pt. min.). @ -no What testing was considered but not performed or refused? (CT, X-rays, U/S, labs)? Why? @ -none What meds were considered but not given or refused? Why? @ -none Did you discuss the management of the patient with other professionals (professionals i.e. KELLY Dee, [employer], lab, RT, psych nurse, protective services social worker, mine superintendent, teacher, international first officer, shoe caser)? Give summary @ -no Was smoking cessation discussed for >3mins.? @ -no Was critical care preformed (if so, how long)? @ -no Were there social determinants of health that impacted care today? How? (Homelessness, low income, unemployed, alcoholism, drug addiction, transportation, low edu. Level, literacy, decrease access to med. care, [facility], rehab)? @ -none Was there de-escalation of care discussed even if they declined (Discuss DNR or withdrawal of care, Hospice)? DNR status @ -no What co-morbidities impacted this encounter? (DM, HTN, Smoking, COPD, CAD, Cancer, CVA, ARF, Chemo, Hep., AIDS, mental health diagnosis, sleep apnea, morbid obesity)? @ -none Was patient admitted / discharged? Hospital course, mention meds given and route, prescriptions, significant lab abnormalities, going to OR and other pertinent info. @ - 73 male to ER for elevated INR, patient given vitamin K and will follow-up with primary care no active bleeding noted here in the ER patient denies any active bleeding or symptoms of lightheadedness dizziness or weakness, no pain no complaints Discharge Undiagnosed new problem with uncertain prognosis? @ -no Drug Therapy requiring intensive monitoring for toxicity (Heparin, Nitro, Insulin, Cardizem)? @ -no Were any procedures done? @ -no Diagnosis/symptom? @ -Coumadin coagulopathy Acute, or Chronic, or Acute on Chronic? @ -Acute Uncomplicated (without systemic symptoms) or Complicated (systemic symptoms)? @ -Complicated Side effects of treatment? @ -no Exacerbation, Progression, or Severe Exacerbation? @ -exacerbation Poses a threat to life or bodily function? How? (Chest pain, USA, MD, pneumonia, PE, COPD, DKA, ARF, appy, cholecystitis, CVA, Diverticulitis, Homicidal, Suicidal, threat to staff... and all critical care pts) @ -yes severe coagulopathy (Dileep Hagan) Medical Decision Making <Carol Davidson - Last Filed: 11/12/24 18:27> - Lab Data Result diagrams: 11/12/24 21:24 11/12/24 21:24 <Dileep Hagan - Last Filed: 11/19/24 18:17> - Medical Decision Making I performed the quick note portion of this chart. Electronically signed by Carol Davidson PA-C (Carol Davidson) 73 male to ER for elevated INR, patient given vitamin K and will follow-up with primary care no active bleeding noted here in the ER patient denies any active bleeding or symptoms of lightheadedness dizziness or weakness, no pain no complaints (Dileep Hagan) - Lab Data Lab Results 11/12/24 11/12/24 11/12/24 Range/Units 21:24 21:24 21:24 WBC 9.14 (4.50-10.00) 10*3/uL RBC 4.30 L (4.40-5.60) 10*6/uL Hgb 13.2 (13.0-17.0) g/dL Hct 41.0 (39.6-50.0) % MCV 95.3 (80.0-97.0) fL MCH 30.7 (27.0-32.0) pg MCHC 32.2 (32.0-37.0) g/dL Plt Count 314 (140-440) 10*3/uL MPV 8.9 L (9.5-12.2) fL Immature Gran % (Auto) 0.4 % Neutrophils % 60.1 % Lymphocytes % 22.8 % Monocytes % 13.0 % Eosinophils % 2.8 % Basophils % 0.9 % Immature Gran # 0.04 (0.00-0.04) 10*3/uL Neutrophils # 5.49 (1.80-7.70) 10*3/uL Lymphocytes # 2.08 (0.90-5.00) 10*3/uL Monocytes # 1.19 H (0.20-1.00) 10*3/uL Eosinophils # 0.26 (0.04-0.35) 10*3/uL Basophils # 0.08 (0.00-0.10) 10*3/uL PT 99.8 H (10.0-12.5) sec INR 9.9 H* (<1.2) APTT 71.3 H (22.0-30.0) sec Sodium 142 (137-145) mmol/L Potassium 4.3 (3.5-5.1) mmol/L Chloride 105 (98-107) mmol/L Carbon Dioxide 28 (22-30) mmol/L Anion Gap 9 mmol/L BUN 26 H (9-20) mg/dL Creatinine 0.79 (0.66-1.25) mg/dL Est GFR (CKD-EPI)AfAm >90 (>60 ml/min/1.73 sqM) Est GFR (CKD-EPI)NonAf 89 (>60 ml/min/1.73 sqM) Glucose 97 (74-99) mg/dL Calcium 9.4 (8.4-10.2) mg/dL Total Bilirubin 0.4 (0.2-1.3) mg/dL AST 35 (17-59) U/L ALT 25 (4-49) U/L Alkaline Phosphatase 109 (38-126) U/L Total Protein 7.3 (6.3-8.2) g/dL Albumin 4.2 (3.5-5.0) g/dL Disposition <Carol Davidson - Last Filed: 11/12/24 18:27> Is patient prescribed a controlled substance at d/c from ED?: No Time of Disposition: 22:00 <Dileep Hagan - Last Filed: 11/19/24 18:17> Clinical Impression: Coumadin toxicity Disposition: HOME SELF-CARE Condition: Fair Instructions (If sedation given, give patient instructions): Warfarin (By mouth) Referrals: Cory Goodman MD [Primary Care Provider] - 1-2 days
[2024-11-12 21:32] LABS: Basophils # (A) 0.08 10*3/uL (0.00-0.10); Basophils % (A) 0.9 %; Eosinophils # (A) 0.26 10*3/uL (0.04-0.35); Eosinophils % (A) 2.8 %; HGB 13.2 g/dL (13.0-17.0); Lymphocytes # (A) 2.08 10*3/uL (0.90-5.00); Lymphocytes % (A) 22.8 %; MCH 30.7 pg (27.0-32.0); MCHC 32.2 g/dL (32.0-37.0); MCV 95.3 fL (80.0-97.0); Mean Platelet Volume 8.9 fL (9.5-12.2); Monocytes # (A) 1.19 10*3/uL (0.20-1.00); Neutrophils # (A) 5.49 10*3/uL (1.80-7.70); Neutrophils % (A) 60.1 %; Platelet Count 314 10*3/uL (140-440); RDW 14.6 % (11.5-14.5); WBC 9.14 10*3/uL (4.50-10.00)
[2024-11-12 21:47] LABS: Prothrombin Time 99.8 sec (10.0-12.5)
[2024-11-12 21:54] LABS: INR 9.9 (<1.2); Partial Thromboplastin Time 71.3 sec (22.0-30.0)
[2024-11-12 22:12] LABS: ALT 25 U/L (4-49); AST 35 U/L (17-59); African American GFR (CKD) >90 (>60 ml/min/1.73 sqM); Albumin 4.2 g/dL (3.5-5.0); Alkaline Phosphatase 109 U/L (38-126); Anion Gap 9 mmol/L; Blood Urea Nitrogen 26 mg/dL (9-20); Calcium 9.4 mg/dL (8.4-10.2); Carbon Dioxide 28 mmol/L (22-30); Chloride 105 mmol/L (98-107); Glucose 97 mg/dL (74-99); Non-African American GFR(CKD) 89 (>60 ml/min/1.73 sqM); Potassium 4.3 mmol/L (3.5-5.1); Sodium 142 mmol/L (137-145); Total Bilirubin 0.4 mg/dL (0.2-1.3); Total Protein 7.3 g/dL (6.3-8.2)
[2024-11-12] MEDS: PHYTONADIONE ORAL 5 MG/5 ML ORAL.SYRG PO STA (22:44)
[2024-11-12 22:51] VITALS: BP 134/76; PULSE 78; RESP 18; TEMP 98.1
== END 2024-11-12 22:51 | disposition home or self-care (01) ==
LOC: EC 17:18
DX: R79.1 Abnormal coagulation profile (principal); T45.515A Adverse effect of anticoagulants, initial encounter; Z79.01 Long term (current) use of anticoagulants; Z87.891 Personal history of nicotine dependence; Z88.8 Allergy status to other drugs, medicaments and biological substances
CPT/HCPCS: 36415; 80053; 85025; 85610; 85730; 99283

== ENCOUNTER → 2024-11-21 | Outpatient (CLI) | payer MEDICARE ==
--- NOTE | 2024-11-21 15:49 | CT ---
EXAMINATION TYPE: CT brain wo con DATE OF EXAM: 11/21/2024 COMPARISON: CT brain and C-spine dated 09/02/2024 CLINICAL INDICATION: Male, 73 years old with history of R41.3 OTHER AMNESIA; PHH, amnesia CT DLP: 1110.20 mGycm Automated exposure control for dose reduction was used. Findings: The ventricles, basal cisterns and sulci over convexities are moderately to markedly enlarged consist ent with moderate to marked generalized atrophy. There is mario decreased density in the periventricular white matter consistent with marked chronic is chemic white matter demyelination. There is no mass effect or shift of midline structures. There is no acute intra or extra-axial hemorrhage. The posterior fossa including the brainstem, fourth ventricle and cerebellopontine angles appear tom sly normal. The intraorbital contents appear normal symmetric Visualized paranasal sinuses and mastoid air cells are well aerated. Calvarium is intact. IMPRESSION: 1. Moderate to marked generalized atrophy and marked chronic ischemic white matter demyelination. 2. No acute bleed or mass effect. 3. No significant interval change. [facility], , 11/21/2024 3:47 PM
== END | disposition home or self-care (01) ==
LOC: RADCTMAIN 15:16
PROVIDERS: ATTEND Family Medicine
DX: G31.1 Senile degeneration of brain, not elsewhere classified (principal); I67.82 Cerebral ischemia; R41.3 Other amnesia
CPT/HCPCS: 70450